=== PATIENT | male | born 1985 | race Caucasian/White ===

== ENCOUNTER 2020-02-17 16:38 | Emergency (ER) | payer MEDICAID, SELFPAY ==
[2020-02-17 16:56] VITALS: BP 147/91; PULSE 93; RESP 14; TEMP 36.1; O2SAT 95; BMI 46.7
--- NOTE | 2020-02-17 17:08 | W.ED.ABDPA2 ---
HPI - Abdominal Pain General: Chief Complaint: Abdominal Pain Stated Complaint: upper abd pain Time Seen by Provider: 02/17/20 17:02 Source: patient Mode of arrival: ambulatory Limitations: no limitations History of Present Illness: HPI narrative: Patient is a 34-year-old male who presents to ED today with complaints of upper abdominal pain, nausea, vomiting, diarrhea beginning this morning when he awoke from sleep. Patient states he tried to rest throughout the day and treat his symptoms with Pepto but states pain progressively worsened throughout the day making him seek evaluation this evening. Patient states he has had one episode of nonbloody vomit and several episodes of nonbloody or dark diarrhea. He does not report any chronic history of acid reflux. No previous abdominal surgeries. States he normally takes pain medications for chronic back pain. He has not been running fevers. No recent antibiotic, NSAID, or heavy alcohol use. Reports no urinary symptoms. MD elicited complaint: abdominal pain Pain Consistency: constant Location: Epigastric Quality: aching and burning Radiation: none Migration to: no migration Relieving factors: nothing Associated Symptoms: Reports diarrhea, nausea and vomiting; Denies chills, coffee ground emesis, dysuria, fever(s), heartburn, hematochezia, hematemesis and melena Review of Systems Const: Denies: fever(s) or chills ENMT: Denies: throat pain, enlarged tonsils or odynophagia Card: Denies: chest pain Resp: Denies: dyspnea GI: Reports: abdominal pain, nausea, vomiting and diarrhea; Denies: hematemesis, coffee ground emesis, heartburn, pain on defecation, hematochezia, melena, mucus in stool, white/light colored stool or steatorrhea : Denies: flank pain, difficulty urinating, dysuria, urinary frequency or urinary urgency Musc: Denies: neck pain or back pain Skin/Breast: Denies: rash Neuro: Denies: headache(s), numbness in extremities, weakness in extremities or sensory changes PFS ED PFSH: Social History Smoking and tobacco status: current every day smoker Physical Exam Const: COMMON NORMALS: no acute distress, patient oriented x3, no limitations and alert NUTRITIONAL APPEARANCE: obese HENMT: COMMON NORMALS: normocephalic and atraumatic HEAD & SCALP: normocephalic and atraumatic Chest: COMMONS NORMALS: normal inspection of the chest and normal palpation of entire chest wall Resp: COMMON NORMALS: normal respiratory effort and clear to auscultation bilaterally AUSCULTATION: clear to auscultation bilaterally Cardio: COMMON NORMALS: regular rate and regular rhythm RATE: regular rate RHYTHM: regular rhythm GI: COMMON NORMALS: Normal to inspection, nondistended, normoactive bowel sounds present, Soft to palpation, No hepatosplenomegaly present and no masses PALPATION: Yes Soft to palpation, Yes Tenderness to palpation present (GI) (epigastric; LUQ) and Yes No hepatosplenomegaly present : COMMON NORMALS: Yes no CVA tenderness BLADDER/KIDNEY EXAM: Yes no CVA tenderness Back/Pelvis: COMMON NORMALS: no CVA tenderness Extremity: COMMON NORMALS: normal to inspection Neuro: COMMON NORMALS: patient oriented x3 SENSORIUM/ORIENTATION: Yes alert Skin: COMMON NORMALS: no rashes or lesions noted GENERAL SKIN EXAM: no rashes or lesions noted Course Vital Signs: Vital signs: Vital Signs Temperature 97.0 F L 02/17/20 16:56 Pulse Rate 93 02/17/20 16:56 Respiratory Rate 14 02/17/20 16:56 Blood Pressure 147/91 02/17/20 16:56 Pulse Oximetry 95 02/17/20 16:56 MDM - Abdominal Pain Lab Data: Labs: Lab Results 02/17/20 02/17/20 02/17/20 Range/Units 17:29 17:29 19:40 WBC 15.4 H (4.0-10.0) 10^3/ uL RBC 6.11 H (4.1-5.3) 10^6/u L Hgb 17.5 H (11.7-16.6) g/dL Hct 52.8 H (42.0-52.0) % MCV 86.4 (80-94) fL MCH 28.6 (28.0-34.0) pg MCHC 33.1 (30.0-36.0) g/dL RDW 12.8 (12.1-15.1) % Plt Count 272 (130-400) 10^3/c mm MPV 10.1 (7.4-10.4) fL Neut % (Auto) 77.0 % Lymph % (Auto) 13.0 % [place] % (Auto) 7.8 % Eos % (Auto) 1.7 % Baso % (Auto) 0.2 % Neut # (Auto) 11.9 H (1.8-7.7) 10^3/u L Lymph # (Auto) 2.0 (0.8-4.8) 10^3/u L [place] # (Auto) 1.2 H (0.2-0.9) 10^3/u L Eos # (Auto) 0.3 (0.0-0.8) 10^3/u L Baso # (Auto) 0.0 (0.0-0.1) 10^3/u L Nucleated RBC % (a uto) 0 % Nucleated RBCs # 0.0 /100WBC Sodium 137 (136-145) mmol/L Potassium 4.4 (3.5-5.1) mmol/L Chloride 98 (98-107) mmol/L Carbon Dioxide 28 (22-29) mmol/L Anion Gap 15.4 (5-19) BUN 9 (6-20) mg/dL Creatinine 0.8 (0.7-1.2) mg/dL GFR Calculation 111.3 (90-130) mL/min Glucose 105 (65-115) mg/dL Calculated Osmolal ity 280 L (285-295) mOsm/k g Calcium 9.0 (8.5-10.5) mg/dL Total Bilirubin 0.4 (0.15-1.2) mg/dL AST 18 (0-40) U/L ALT 30 (0-41) U/L Alkaline Phosphata se 73 (40-130) IU/L Total Protein 7.0 (6.6-8.7) g/dL Albumin 4.4 (3.5-5.2) g/dL Globulin 2.6 (1.3-4.6) g/dL Lipase 13 (13-60) U/L Urine Color Yellow (Yellow) Urine Appearance Clear (CLEAR) Urine pH 5 (5-7) Ur Specific Gravit y 1.010 (1.005-1.030) Urine Protein Neg (Negative) Urine Glucose (UA) Norm (Normal) Urine Ketones Negative (Negative) Urine Blood Neg (Negative) Urine Nitrate Negative (Negative) Urine Bilirubin Neg (NEGATIVE) Urine Urobilinogen Norm (Negative) mg/dL Ur Leukocyte Marilee ase Negative (Negative) Imaging Data ^: CT Abd/Pel: Radiologist's impression: [address] [place] [address] CT Scan Report Signed Patient: Adama Thompson Unit #: [id number] : 1985 Age/Sex: 34 / M ADM Date: 02/17/20 Loc: ER Room/Bed: Attending Dr: Ordering Provider/Ordering MD: Maryjane Santos Date of Service: 02/17/20 Procedure(s): CT abdomen pelvis w con* [id number] Accession Number(s): [id number] Report Number: [id number] PROCEDURE INFORMATION: Exam: CT Abdomen And Pelvis With Contrast Exam date and time: 02/17/2020 6:00 PM Age: 34 years old Clinical indication: Abdominal pain; Patient HX: C/O epigastric pain w n/v/d; Additional info: Upper abdominal pain, n/v/d TECHNIQUE: Imaging protocol: Computed tomography of the abdomen and pelvis with intravenous contrast. Radiation optimization: All CT scans at this facility use at least one of these dose optimization techniques: automated exposure control; mA and/or kV adjustment per patient size (includes targeted exams where dose is matched to clinical indication); or iterative reconstruction. Contrast material: OMNI 300; Contrast volume: 95 ml; Contrast route: 29G; COMPARISON: CT Abdomen/Pelvis Renal [id number] 11/11/2016 10:34 AM RADIATION DOSE METRICS: Total DLP: 2065.53 mGy-cm FINDINGS: Liver: There is a diffuse decrease in hepatic parenchymal density, consistent with mild fatty infiltration. There is no focal abnormality within the liver. Gallbladder and bile ducts: The gallbladder is normal. Pancreas: The pancreas is normal. Spleen: The spleen is normal. Adrenals: The adrenal glands are normal. Kidneys and ureters: There is a 4 mm sized simple cyst in the mid left kidney. There is an 8 mm sized exophytic nodule arising from the lateral aspect of the lower pole of the right kidney not significantly changed from 11/11/2016. This is likely represent a benign hyperdense cyst unchanged in 3 years. There is no evidence of hydronephrosis. There is a tiny nonobstructing stone lower pole calyx of the left kidney. Stomach and bowel: There is mild wall thickening of the distal ileum which may represent some nonspecific enteritis. Correlation with the clinical findings is suggested. There is no evidence of intestinal obstruction. Appendix: A normal appendix is identified. Intraperitoneal space: There is no evidence of free intraperitoneal fluid. Vasculature: Unremarkable. No abdominal aortic aneurysm. Lymph nodes: There is calcified right hilar lymph node in keeping with old granulomatous disease. Bladder: Unremarkable as visualized. Reproductive: Unremarkable as visualized. Bones/joints: Unremarkable. No acute fracture. Soft tissues: Unremarkable. Other findings: . CT/CT abdomen pelvis w con* [id number] IMPRESSION: 1. Mild fatty liver 2. Findings consistent with nonspecific enteritis involving the distal ileum. COMMENTS: Consistent with the [employer]'s Incidental Findings Committee white paper (J Am Natalia Radiol 2018): Any incidental renal lesion less than 1.0 cm or classified as too small to characterize, or any incidental cystic renal lesion characterized as simple-appearing, is likely benign. No follow-up imaging is recommended for these lesions per consensus recommendations based on imaging criteria. Radiation Dose CTDIVOL = (mGy): DLP = 2065.53 (mGy-cm) Dictated By: Mendel Yoon Signed By: Mendel Yoon Signed Date/Time: 02/17/201840 DD/ 40 Discharge Plan Discharge Patient Disposition: Home, Self-Care Clinical Impression: Enteritis Condition: Stable Prescriptions: New Flagyl 500 mg tablet 500 mg PO BID 7 Days Qty: 14 RF: 0 Cipro 500 mg tablet 500 mg PO Q12H Qty: 14 RF: 0 No Action testosterone cypionate 200 mg/mL oil 200 mg IM .EVERY OTHER WEEK Qty: 10 RF: 5 cyclobenzaprine 10 mg tablet 10 mg PO BID PRN (Reason: Muscle Spasm) RF: 0 oxycodone 15 mg tablet 7.5 - 15 mg PO TID PRN (Reason: Pain) RF: 0 Tylenol See Rx Instructions .ROUTE .COMPLEX RF: 0 Discharge Orders: Discharge Order (Routine); Ordered 02/17/20 Ordered By: Maryjane Santos Discharge Diet: Clear Liquid Discharge Activity: Increase activity as tolerated Patient Instructions: [place] Diet - Adult, Gastroenteritis (ED) Activity Restrictions/Additional Instructions: As discussed please do a bland liquid diet over the next 24 to 48 hours advancing as tolerated. You may return to the emergency department or follow-up with primary care for any worsening pain, continued episodes of vomiting and diarrhea, fevers, or any other concerns you may have. 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
--- NOTE | 2020-02-17 17:35 | PC.NURSE ---
Pain is sharp and stabbing, comes and goes. Patient feels nauseous once pain subsides. Pain is in the upper middle of the abdomen.
[2020-02-17 17:40] LABS: Basophils % 0.2 %; Eosinophils # 0.3 10^3/uL (0.0-0.8); Eosinophils % 1.7 %; Hematocrit 52.8 % (42.0-52.0); Hemoglobin 17.5 g/dL (11.7-16.6); Mean Corpuscular HGB Conc 33.1 g/dL (30.0-36.0); Mean Corpuscular Hemoglobin 28.6 pg (28.0-34.0); Mean Corpuscular Volume 86.4 fL (80-94); Mean Platelet Volume 10.1 fL (7.4-10.4); Monocytes # 1.2 10^3/uL (0.2-0.9); Monocytes % 7.8 %; Neutrophils # 11.9 10^3/uL (1.8-7.7); Nucleated Red Blood Cells % 0 %; Platelet Count 272 10^3/cmm (130-400); Red Blood Count 6.11 10^6/uL (4.1-5.3); Red Cell Distribution Width 12.8 % (12.1-15.1); White Blood Count 15.4 10^3/uL (4.0-10.0)
[2020-02-17 17:55] LABS: Alanine Aminotransferase 30 U/L (0-41); Albumin Level 4.4 g/dL (3.5-5.2); Alkaline Phosphatase 73 IU/L (40-130); Anion Gap 15.4 (5-19); Aspartate Amino Transferase 18 U/L (0-40); Blood Urea Nitrogen 9 mg/dL (6-20); Carbon Dioxide 28 mmol/L (22-29); Chloride 98 mmol/L (98-107); Globulin 2.6 g/dL (1.3-4.6); Glomerular Filtration Rate 111.3 mL/min (90-130); Glucose 105 mg/dL (65-115); Lipase 13 U/L (13-60); Osmolality Calculated 280 mOsm/kg (285-295); Potassium 4.4 mmol/L (3.5-5.1); Sodium 137 mmol/L (136-145); Total Bilirubin 0.4 mg/dL (0.15-1.2)
[2020-02-17] MEDS: ondansetron 2 mg/ML SDV 2 mL 4 MG IVP (18:06)
[2020-02-17] MEDS: iohexol 300 mg/mL 100 mL Btl IV (18:15)
[2020-02-17] MEDS: lidocaine 2% viscous 15 ML, aluminum-mag hydrox-simethicon 30 ML, sucralfate oral liq 1 GM PO (19:39)
[2020-02-17 19:46] LABS: Add Urine Microscopic? NO
[2020-02-17 19:48] LABS: Bilirubin Urine Neg (NEGATIVE); Blood Urine Neg (Negative); Glucose Urine UA Norm (Normal); Ketones Urine Negative (Negative); Leukocyte Esterase Urine Negative (Negative); Nitrate Urine Negative (Negative); Protein Urine Neg (Negative); Urine Appearance Clear (CLEAR); Urine Color Yellow (Yellow); Urobilinogen Urine Norm (Negative); pH Urine 5 (5-7)
== END 2020-02-17 20:01 | disposition home or self-care (01) ==
PROVIDERS: Emergency Provider Physician Assistant
DX: K52.9 Noninfective gastroenteritis and colitis, unspecified (principal); F17.210 Nicotine dependence, cigarettes, uncomplicated
CPT/HCPCS: 12345; 36415; 74177; 80053; 81003; 83690; 85025; 96374; 96375; 99282; 99283; J2405; Q9967

== ENCOUNTER → 2020-05-14 13:32 | Outpatient (BNVA) | payer MEDICAID, SELFPAY | PROVIDERS: PCP Internal Medicine; Visit Provider Urology | DX: E29.1 Testicular hypofunction (principal); R79.89 Other specified abnormal findings of blood chemistry; Z87.442 Personal history of urinary calculi | CPT/HCPCS: 81001 ==

== ENCOUNTER 2020-12-23 17:03 | Emergency (ER) | payer MEDICAID, SELFPAY ==
[2020-12-23 17:37] VITALS: BP 168/104; PULSE 87; RESP 14; TEMP 36.8; O2SAT 96; BMI 42.5
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
--- NOTE | 2020-12-23 17:51 | XRR_ITS ---
PROCEDURE INFORMATION: Exam: XR Left Shoulder Exam date and time: 12/23/2020 6:24 PM Age: 35 years old Clinical indication: Pain and injury or trauma; Other: Not specified; Sprain or strain; Shoulder; Left; Patient HX: Pain x 2 weeks; Additional info: Injury with pain TECHNIQUE: Imaging protocol: XR Left shoulder. Views: 2 or more views. COMPARISON: No relevant prior studies available. FINDINGS: Bones/joints: Normal. Soft tissues: Normal. XR/XR shoulder LT min 2V* [id number] IMPRESSION: No acute findings.
[2020-12-23] MEDS: orphenadrine 30 mg/mL Inj 2 mL 60 MG IM (18:03)
[2020-12-23] MEDS: HYDROcodone-acetaminophen 7.5-325 mg Tablet 1 TAB PO (18:03)
[2020-12-23 19:01] VITALS: RESP 16
== END 2020-12-23 19:02 | disposition home or self-care (01) ==
PROVIDERS: Emergency Provider Physician Assistant; PCP Internal Medicine
DX: M25.512 Pain in left shoulder (principal); F17.210 Nicotine dependence, cigarettes, uncomplicated
CPT/HCPCS: 73030; 96372; 99283; J2360

== ENCOUNTER → 2021-09-24 07:20 | Outpatient (BNVA) | payer MEDICAID, SELFPAY | PROVIDERS: PCP Internal Medicine; Visit Provider Urology | DX: N52.9 Male erectile dysfunction, unspecified (principal) | CPT/HCPCS: 84403 ==

== ENCOUNTER 2021-10-23 01:16 | Inpatient (IN) | payer MEDICAID, SELFPAY ==
[2021-10-23] VITALS (9 sets, daily range): BP systolic 124–141; BP diastolic 71–118; PULSE 64–92; RESP 16–22; TEMP 36.6–36.9; O2SAT 88–96; BMI 43.4; BMI 33.9
--- NOTE | 2021-10-23 01:21 | ECG_ITS ---
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 [email or web address]
--- NOTE | 2021-10-23 01:28 | ED_ITS ---
HPI - Overdose General: Chief Complaint: Overdose Stated Complaint: OD Trazadone 100MG\Prozac\Hydocodone Time Seen by Provider: 10/23/21 01:18 Source: patient Mode of arrival: ambulatory Limitations: no limitations History of Present Illness: HPI Narrative: 36-year-old male states that he is arguing with his harriet became very upset and took multiple pills in an attempt to kill himself. States he took 7 100 mg trazodone pills states he also took a bottle of Prozac he states he believes it was more than 3010 mg tablets. He states he took also 1 hydrocodone earlier in the day did not take any large amount of hydrocodone. He states he was just very upset and want to kill himself after the argument denies any worsening improving factors. Review of Systems Const: Denies: fever(s), chills, body aches or change in appetite Eyes: Denies: blurry vision or eye discomfort ENMT: Denies: throat pain or dental pain Card: Denies: chest pain Resp: Denies: dyspnea GI: Denies: abdominal pain, nausea, vomiting or diarrhea : Denies: dysuria Musc: Denies: neck pain or back pain Skin/Breast: Denies: rash Neuro: Denies: headache(s) Psych: Reports: depression and suicidal ideation [place]/Lymph: Denies: easy bruising All/Imm: Denies: urticaria PFSH ED PFSH: Medical History Erectile dysfunction History of kidney stones Low testosterone in male Lower urinary tract symptoms Surgical History History of tonsillectomy and adenoidectomy Family History Father , at age 68 Alcoholic Mother Cancer BREAST CANCER Sister Cancer Other CAD (coronary artery disease) Diabetes Hypertension Social History Alcohol intake: unknown Adopted: No Caregiver/support person: No Marital status: Current occupational status: unemployed History of recent travel: No Physical Exam Const: COMMON NORMALS: patient oriented x3 and healthy appearing GENERAL APPEARANCE: lethargic ORIENTATION/CONSCIOUSNESS: Yes lethargic HENMT: COMMON NORMALS: normocephalic and atraumatic HEAD & SCALP: normocephalic and atraumatic Eye: COMMON NORMALS: Equal, round and reactive pupils present and EOMs intact bilaterally PUPIL: Yes Equal, round and reactive pupils present Neck/C-Spine: COMMON NORMALS: full ROM and supple Chest: COMMONS NORMALS: normal inspection of the chest and normal palpation of entire chest wall Resp: COMMON NORMALS: normal respiratory effort, No retractions, No use of accessory muscles and clear to auscultation bilaterally AUSCULTATION: clear to auscultation bilaterally Cardio: COMMON NORMALS: regular rate, regular rhythm and No murmurs present (Cardio) RATE: regular rate RHYTHM: regular rhythm GI: COMMON NORMALS: Normal to inspection, nondistended, normoactive bowel sounds present, Soft to palpation, non-tender and no masses PALPATION: Yes Soft to palpation Extremity: COMMON NORMALS: normal to inspection and full ROM Neuro: COMMON NORMALS: patient oriented x3, moves all extremities and no focal motor deficits SENSORIUM/ORIENTATION: Yes lethargic Psych: COMMON NORMALS: mental status grossly normal and cooperative THOUGHT CONTENT: Yes Suicidality present Skin: COMMON NORMALS: no rashes or lesions noted and no wounds GENERAL SKIN EXAM: no rashes or lesions noted Course Vital Signs: Vital signs: Vital Signs Temperature 98.2 F 10/23/21 03:12 Pulse Rate 80 10/23/21 03:12 Respiratory Rate 16 10/23/21 03:12 Blood Pressure 135/79 10/23/21 03:12 Pulse Oximetry 90 10/23/21 03:12 MDM - Overdose MDM Narrative: Medical decision making narrative: Patient presents here after a suicide attempt by overdose he has been well-appearing here no signs of toxic ingestion patient's been observed here and is medically cleared for admission to the psychiatric unit. His vitals here been normal 4-hour Tylenol is normal I spoke to psychiatrist will admit to the psychiatric unit. Lab Data: Labs: Lab Results 10/23/21 10/23/21 10/23/21 01:36 01:36 02:12 WBC 9.1 10^3/uL 10^3/ uL (4.0-10.0) RBC 5.54 10^6/uL H 10 ^6/uL (4.1-5.3) Hgb 15.8 g/dL g/dL (11.7-16.6) Hct 47.7 % % (42.0-52.0) MCV 86.1 fl fl (80-94) MCH 28.5 pg pg (28.0-34.0) MCHC 33.1 g/dL g/dL (30.0-36.0) RDW 12.6 % % (12.1-15.1) Plt Count 295 10^3/cmm 10^3 /cmm (130-400) MPV 9.9 fL fL (7.4-10.4) Neut % (Auto) 60.1 % % Lymph % (Auto) 31.2 % % [place] % (Auto) 7.0 % % Eos % (Auto) 1.1 % % Baso % (Auto) 0.5 % % Neut # (Auto) 5.47 10^3/uL 10^3 /uL (1.8-7.7) Lymph # (Auto) 2.8 10^3/uL 10^3/ uL (0.8-4.8) [place] # (Auto) 0.6 10^3/uL 10^3/ uL (0.2-0.9) Eos # (Auto) 0.1 10^3/uL 10^3/ uL (0.0-0.8) Baso # (Auto) 0.1 10^3/uL 10^3/ uL (0.0-0.1) Nucleated RBC % (a uto) 0 % % Nucleated RBCs # 0.0 /100WBC /100W BC Sodium 140 mmol/L mmol/L (136-145) Potassium 4.0 mmol/L mmol/L (3.5-5.1) Chloride 103 mmol/L mmol/L (98-107) Carbon Dioxide 24 mmol/L mmol/L (22-29) Anion Gap 17.0 (5-19) BUN 11 mg/dL mg/dL (6-20) Creatinine 0.8 mg/dL mg/dL (0.7-1.2) GFR Calculation 110.0 mL/min mL/m in (90-130) Glucose 102 mg/dL mg/dL (65-115) Calculated Osmolal ity 290 mOsm/kg mOsm/ kg (285-295) Calcium 8.9 mg/dL mg/dL (8.5-10.5) Magnesium 2.2 mg/dL mg/dL (1.7-2.3) Total Bilirubin 0.4 mg/dL mg/dL (0.15-1.2) AST 16 U/L U/L (0-40) ALT 23 U/L U/L (0-41) Alkaline Phosphata se 79 IU/L IU/L (40-130) Total Protein 6.8 g/dL g/dL (6.6-8.7) Albumin 4.4 g/dL g/dL (3.5-5.2) Globulin 2.4 g/dL g/dL (1.3-4.6) Salicylates < 0.3 mg/dL L mg/ dL (3-10) Urine Opiates Scre en Positive ng/mL H ng/mL (Negative) Acetaminophen < 5.0 ug/mL L ug/ mL (10-30) Ur Barbiturates Sc reen Negative ng/mL ng /mL (Negative) Ur Phencyclidine S crn Negative ng/mL ng /mL (Negative) Ur Amphetamines Sc reen Positive ng/mL H ng/mL (Negative) U Benzodiazepines Scrn Negative ng/mL ng /mL (Negative) Urine Cocaine Scre en Negative ng/mL ng /mL (Negative) U Marijuana (THC) Screen Negative ng/mL ng /mL (Negative) Ethyl Alcohol < 10 mg/dL mg/dL (0-10) 10/23/21 03:42 WBC RBC Hgb Hct MCV MCH MCHC RDW Plt Count MPV Neut % (Auto) Lymph % (Auto) [place] % (Auto) Eos % (Auto) Baso % (Auto) Neut # (Auto) Lymph # (Auto) [place] # (Auto) Eos # (Auto) Baso # (Auto) Nucleated RBC % (a uto) Nucleated RBCs # Sodium Potassium Chloride Carbon Dioxide Anion Gap BUN Creatinine GFR Calculation Glucose Calculated Osmolal ity Calcium Magnesium Total Bilirubin AST ALT Alkaline Phosphata se Total Protein Albumin Globulin Salicylates Urine Opiates Scre en Acetaminophen < 5.0 ug/mL L ug/ mL (10-30) Ur Barbiturates Sc reen Ur Phencyclidine S crn Ur Amphetamines Sc reen U Benzodiazepines Scrn Urine Cocaine Scre en U Marijuana (THC) Screen Ethyl Alcohol EKG Data^: EKG 1: Attestation: I personally reviewed and interpreted this EKG as follows: EKG interpretation date: 10/23/21 EKG interpretation time: 01:52 Interpretation: nsr hr [address] or t wave abnormalities qrs 99 qtc 409 Critical Care Time Critical Care Time: Critical Care Time: Yes Total Critical Care Time: 40 Attestation: The high probability of a clinically significant, sudden or life threatening deterioration of the patient's [CV] system(s) required my full and direct attention, intervention and personal management. The critical care time is as shown. This time is in addition to time spent performing any reported procedures but includes the following: [x] Data and vital sign review and interpretation [x] Patient assessment, examination and intervention [x] Documentation [x] Medication orders and management Discharge Plan Discharge Patient Disposition: Admitted As Inpatient Clinical Impression: Suicidal ideation Drug overdose Qualifiers: Encounter type: initial encounter Injury intent: intentional self-harm Qualified Code(s): T50.902A - Poisoning by unspecified drugs, medicaments and biological substances, intentional self-harm, initial encounter Condition: Stable Coding Level of Care Code 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
[2021-10-23 01:41] LABS: Basophils # 0.1 10^3/uL (0.0-0.1); Basophils % 0.5 %; Eosinophils # 0.1 10^3/uL (0.0-0.8); Eosinophils % 1.1 %; Hematocrit 47.7 % (42.0-52.0); Hemoglobin 15.8 g/dL (11.7-16.6); Lymphocytes # 2.8 10^3/uL (0.8-4.8); Lymphocytes % 31.2 %; Mean Corpuscular HGB Conc 33.1 g/dL (30.0-36.0); Mean Corpuscular Hemoglobin 28.5 pg (28.0-34.0); Mean Corpuscular Volume 86.1 fl (80-94); Mean Platelet Volume 9.9 fL (7.4-10.4); Monocytes # 0.6 10^3/uL (0.2-0.9); Neutrophils # 5.47 10^3/uL (1.8-7.7); Neutrophils % 60.1 %; Nucleated Red Blood Cells % 0 %; Platelet Count 295 10^3/cmm (130-400); Red Blood Count 5.54 10^6/uL (4.1-5.3); Red Cell Distribution Width 12.6 % (12.1-15.1); White Blood Count 9.1 10^3/uL (4.0-10.0)
[2021-10-23 02:02] LABS: Alanine Aminotransferase 23 U/L (0-41); Albumin Level 4.4 g/dL (3.5-5.2); Alkaline Phosphatase 79 IU/L (40-130); Blood Urea Nitrogen 11 mg/dL (6-20); Calcium 8.9 mg/dL (8.5-10.5); Carbon Dioxide 24 mmol/L (22-29); Chloride 103 mmol/L (98-107); Globulin 2.4 g/dL (1.3-4.6); Glucose 102 mg/dL (65-115); Magnesium 2.2 mg/dL (1.7-2.3); Osmolality Calculated 290 mOsm/kg (285-295); Sodium 140 mmol/L (136-145); Total Bilirubin 0.4 mg/dL (0.15-1.2); Total Protein 6.8 g/dL (6.6-8.7)
[2021-10-23 02:10] LABS: Acetaminophen < 5.0 ug/mL (10-30); Alcohol Level < 10 mg/dL (0-10); Aspartate Amino Transferase 16 U/L (0-40); Salicylate < 0.3 mg/dL (3-10)
[2021-10-23 02:28] LABS: Amphetamines Screen Urine Positive (Negative); Barbiturates Screen Urine Negative (Negative); Benzodiazepines Screen Urine Negative (Negative); Cocaine Screen Urine Negative (Negative); Opiate Screen Urine Positive (Negative); PCP Screen Urine Negative (Negative); THC Screen Urine Negative (Negative)
[2021-10-23 04:21] LABS: Acetaminophen < 5.0 ug/mL (10-30)
--- NOTE | 2021-10-23 12:52 | P.NPUHP_ITS ---
Providers/Chief Complaint Admitting Physician: Amor Juan MD Primary Care Provider: Ann-Marie Steven MD Chief Complaint: OD Trazadone 100MG\Prozac\Hydocodone HPI NPU History of Present Illness Adama Thompson is a 36 year old male who was admitted to the emergency department with the following report: General: Chief Complaint: Overdose Stated Complaint: OD Trazadone 100MG\Prozac\Hydocodone Time Seen by Provider: 10/23/21 01:18 Source: patient Mode of arrival: ambulatory Limitations: no limitations History of Present Illness: HPI Narrative: 36-year-old male states that he is arguing with his harriet became very upset and took multiple pills in an attempt to kill himself. States he took 7 100 mg trazodone pills states he also took a bottle of Prozac he states he believes it was more than 30 10 mg tablets. He states he took also 1 hydrocodone earlier in the day did not take any large amount of hydrocodone. He states he was just very upset and want to kill himself after the argument denies any worsening improving factors. He was admitted to the neuropsychiatry unit for definitive treatment of these issues. He was a little difficult to interview this morning because he is still sedated from the trazodone that he took. He says that he has been depressed recently. He has been out of work for about 6 years. He is not on disability. He sits at home and does little or nothing. He says he probably goes back and forth between the bed and the chair. He does medical marijuana as much as he can afford to get. He does methamphetamine about twice a week just to get himself moving so that he can do some of the things that he should be doing. He says he cleans the house when he uses methamphetamine. His complains about his methamphetamine use because sometimes he is irritable. He denies that it causes him to have hallucinations or paranoia. That he only drinks a few times per year. He says that he sleeps well. He sometimes has some decreased appetite but has not lost any weight. His weight is stable. He does have low self-esteem, low motivation and energy. He does not remember if the Prozac and trazodone that he took previously helped. He said it has been many years since he took them. He has recently started smoking cigarettes and using drugs when he was about 13 years old. He denies using oxygen at home that his oxygen level in the emergency room was in the upper 80s on room air at times. It was not the 90s on room air after they gave him some oxygen. Meds NPU Home Medications Medication Instructions Recorded Confirmed Last Taken Type testosterone cypionate 200 mg/mL 200 mg IM .EVERY OTHER WEEK #10 ml 10/10/21 10/23/21 Unknown Rx intramuscular oil Allergies Allergy/AdvReac Type Severity Reaction Status Date / Time naproxen Allergy ALGY-Difficulty Verified 09/24/21 07:18 Breathing NSAIDS (Non-Steroidal Allergy ALGY-Anaphy Verified 09/24/21 07:18 Anti-Inflamma laxis zonisamide [From Zonegran] AdvReac ADR-Vomitin Verified 09/24/21 07:18 g PFSH NPU PFSH: Medical History Erectile dysfunction History of kidney stones Low testosterone in male Lower urinary tract symptoms Surgical History History of tonsillectomy and adenoidectomy Family History Father , at age 68 Alcoholic Mother Cancer BREAST CANCER Sister Cancer Other CAD (coronary artery disease) Diabetes Hypertension Social History Alcohol intake: unknown Adopted: No Caregiver/support person: No Marital status: Current occupational status: unemployed History of recent travel: No Mental Status Exam MSE Comments: This is an obese 36-year old male who appears approximately his stated age in no acute distress. He is dressed in hospital scrubs. He is in bed and is somewhat difficult to arouse. psychomotor activity decreased. Speech is at a regular rate and rhythm, normal volume, good articulation, not pressured. Alert, oriented X2 Attention and concentration are diminished. He is overly sedated. Memory is intact Mood is depressed. Affect is dysphoric. Thought process is logical and goal-directed. Thought content: Denies auditory and visual hallucinations. No delusions or paranoia are noted. No current suicidal ideation, and no homicidal ideation. Fund of knowledge is probably average. Insight and judgment appear to be poor. Impulse control is poor. Vitals/I&O/Wt Last Vital Signs Temp 98.2 F 10/23/21 03:12 Pulse 72 10/23/21 07:59 Resp 16 10/23/21 07:59 BP 131/72 10/23/21 07:59 Pulse Ox 94 10/23/21 07:59 Weight last 48 hrs Weight 113.398 kg Weight 145.15 kg Data NPU : 10/23/21 01:36 10/23/21 01:36 A&P Assessment and plan (1) Depression: Status: Acute Qualifiers: Depression Type: major depressive disorder Major depression recurrence: recurrent Active/Remission status: currently active Major depression episode severity: severe Psychotic features: without psychotic features Qualified Code(s): F33.2 - Major depressive disorder, recurrent severe without psychotic features (2) Marijuana dependence: Status: Acute (3) Methamphetamine abuse: Status: Acute Additional A&P Information This is a 36-year-old male who comes in after taking an overdose of pills to try and kill himself. Plan: 1. We will start him on Lexapro 10 mg daily and attempt to establish him in outpatient treatment 2. Continue every 15 minute checks for safety. 3. Encourage individual, group and milieu therapies. 4. Encourage sober living treatment after discharge at the highest level of care to which he is willing to commit. 5. We will monitor for safety for himself in the community prior to discharge. Attestations NPU Medical Necessity Statement*: Inpatient hospitalization is medically necessary and the clinically appropriate intervention at this time. We will initiate medications and make changes as indicated. He will be in the hospital for over 2 midnights. 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
[2021-10-23 13:57] LABS: Testosterone Total 507.7 ng/dL (249-836); Thyroid Stimulating Hormone 0.69 uIU/mL (0.27-4.20)
[2021-10-23] MEDS: hyDROXYzine 25 mg Capsule 50 MG PO (20:34)
[2021-10-23] MEDS: trazodone 50 mg Tablet PO (20:34)
--- NOTE | 2021-10-24 00:02 | PC.NURSE ---
Patient received Trazadone and Vistaril for insomnia and anxiety. Meds were effective.
[2021-10-24 06:00] VITALS: BP 131/71; PULSE 70; RESP 17; TEMP 36.9; O2SAT 96
[2021-10-24 06:46] VITALS: BP 135/85; PULSE 67; RESP 20; TEMP 36.7; O2SAT 95
--- NOTE | 2021-10-24 10:51 | P.NPUPN_ITS ---
Subjective NPU Subjective: Interval history: He says that he was when he talked with me yesterday. He says that he is not sleeping all the time maramandawilma told me that he was yesterday. He says that he is usually up and around and taking care of the house and the kids. He is still sedated today because she took the as needed trazodone and Vistaril last night. He requested the dose be discontinued so that he cannot take them again. He says he has been depressed the last few months with low energy and low motivation. He requested to start an antidepressant. He does not remember what he took previously. He overdosed with some old Prozac 10 mg that he had. He said that that was not strong enough. He said that he would prefer to try something else and we decided to try Lexapro. Mental Status Exam MSE Comments: This is an obese 36-year old male who appears approximately his stated age in no acute distress. He is dressed in hospital scrubs. He is in bed but easily aroused. psychomotor activity decreased. Speech is at a regular rate and rhythm, normal volume, good articulation, not pressured. Alert, oriented X3 Attention and concentration are diminished. He is overly sedated. Memory is intact Mood is depressed. Affect is dysphoric. Thought process is logical and goal-directed. Thought content: Denies auditory and visual hallucinations. No delusions or paranoia are noted. No current suicidal ideation, and no homicidal ideation. Fund of knowledge is probably average. Insight and judgment appear to be poor. Impulse control is poor. Cognition: Patient Appearance: Appropriate Level of Consciousness: Lethargic Patient Cognition Impaired: No Ability to Follow Directions: Good Patient Orientation (long list): Person, Place, Time, Name, Age and Birthday Comprehension Ability: Understands Concepts Hallucination Type: None Delusion Description: Not Present Thought Process: Appropriate Affect: Affect Description: Appropriate and Calm Behavior: Patient Behavior: Appropriate and Cooperative Speech Pattern: Appropriate and Clear Vitals/I&O/Wt Last Vital Signs Temp 98.1 F 10/24/21 06:46 Pulse 67 10/24/21 06:46 Resp 20 H 10/24/21 06:46 BP 135/85 10/24/21 06:46 Pulse Ox 95 10/24/21 06:46 Weight last 48 hrs Weight 113.398 kg Weight 145.15 kg Data NPU : 10/23/21 01:36 10/23/21 01:36 A&P Assessment and plan (1) Depression: Status: Acute Qualifiers: Depression Type: major depressive disorder Major depression recurrence: recurrent Active/Remission status: currently active Major depression episode severity: severe Psychotic features: without psychotic features Qualified Code(s): F33.2 - Major depressive disorder, recurrent severe without psychotic features (2) Marijuana dependence: Status: Acute (3) Methamphetamine abuse: Status: Acute Additional A&P Information This is a 36-year-old male who comes in after taking an overdose of pills to try and kill himself. Plan: 1. We will start him on Lexapro 10 mg daily and attempt to establish him in outpatient treatment 2. Continue every 15 minute checks for safety. 3. Encourage individual, group and milieu therapies. 4. Encourage sober living treatment after discharge at the highest level of care to which he is willing to commit. 5. We will monitor for safety for himself in the community prior to discharge. Involuntary Hold Information 96 Hour Hold: 96 Hour Involuntary Admission: Yes 96 Hour Hold Ending Date: 10/29/21 96 Hour Hold Ending Time: 01:52 Attestations NPU Medical Necessity Statement*: Inpatient hospitalization is medically necessary and the clinically appropriate intervention at this time. We will initiate medications and make changes as indicated. 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
[2021-10-24] MEDS: escitalopram 10 mg Tablet PO (11:54)
[2021-10-24] MEDS: nicotine 2 mg Gum BUCCAL ×2 (12:24→16:55)
[2021-10-24 14:00] VITALS: BP 140/84; PULSE 77; RESP 19; TEMP 36.7; O2SAT 97
[2021-10-24 20:31] VITALS: BP 124/69; PULSE 60; RESP 16; O2SAT 96
[2021-10-25 06:00] VITALS: BP 154/85; PULSE 69; RESP 18; TEMP 36.1; O2SAT 96
[2021-10-25] MEDS: nicotine 2 mg Gum BUCCAL (08:32)
[2021-10-25] MEDS: escitalopram 10 mg Tablet PO (08:32)
--- NOTE | 2021-10-25 10:37 | P.NPUPN_ITS ---
Subjective NPU Subjective: Interval history: He says that he was in bed most of the day yesterday. He said that he was drowsy from the sleep medications he had been given before. He says that he does feel that the medication is working and he is in a better mood. This is a good medication for discontinued and he says that he feels better today. He has been up today. He feels like he will p robably be ready to go home tomorrow. Mental Status Exam MSE Comments: This is an obese 36-year old male who appears approximately his stated age in no acute distress. He is dressed in hospital scrubs. He is in bed but easily aroused. psychomotor activity decreased. Speech is at a regular rate and rhythm, normal volume, good articulation, not pressured. Alert, oriented X3 Attention and concentration are diminished. He is overly sedated. Memory is intact Mood is depressed but better. Affect is mildly dysphoric. Thought process is logical and goal-directed. Thought content: Denies auditory and visual hallucinations. No delusions or paranoia are noted. No current suicidal ideation, and no homicidal ideation. Fund of knowledge is probably average. Insight and judgment appear to be poor. Impulse control is poor. Cognition: Patient Appearance: Appropriate Level of Consciousness: Lethargic Patient Cognition Impaired: No Ability to Follow Directions: Good Patient Orientation (long list): Person, Place, Time, Name, Age and Birthday Comprehension Ability: Understands Concepts Hallucination Type: None Delusion Description: Not Present Thought Process: Appropriate Affect: Affect Description: Calm Behavior: Patient Behavior: Cooperative Speech Pattern: Clear Vitals/I&O/Wt Last Vital Signs Temp 97 F L 10/25/21 06:00 Pulse 69 10/25/21 06:00 Resp 18 10/25/21 06:00 BP 154/85 10/25/21 06:00 Pulse Ox 96 10/25/21 06:00 Data NPU : 10/23/21 01:36 10/23/21 01:36 A&P Assessment and plan (1) Depression: Status: Acute Qualifiers: Depression Type: major depressive disorder Major depression recurrence: recurrent Active/Remission status: currently active Major depression episode severity: severe Psychotic features: without psychotic features Qualified Code(s): F33.2 - Major depressive disorder, recurrent severe without psychotic features (2) Marijuana dependence: Status: Acute (3) Methamphetamine abuse: Status: Acute Additional A&P Information This is a 36-year-old male who comes in after taking an overdose of pills to try and kill himself. Plan: 1. We will start him on Lexapro 10 mg daily and attempt to establish him in outpatient treatment 2. Continue every 15 minute checks for safety. 3. Encourage individual, group and milieu therapies. 4. Encourage sober living treatment after discharge at the highest level of care to which he is willing to commit. 5. We will monitor for safety for himself in the community prior to discharge. Involuntary Hold Information 96 Hour Hold: 96 Hour Involuntary Admission: Yes 96 Hour Hold Ending Date: 10/29/21 96 Hour Hold Ending Time: 01:52 Attestations NPU Medical Necessity Statement*: Inpatient hospitalization is medically necessary and the clinically appropriate intervention at this time. We will initiate medications and make changes as indicated. 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
[2021-10-25 14:00] VITALS: BP 144/84; PULSE 78; RESP 17; O2SAT 94
[2021-10-25 20:16] VITALS: BP 159/92; PULSE 61; RESP 17; O2SAT 94
[2021-10-26 05:50] VITALS: BP 159/92; PULSE 61; RESP 17; TEMP 36.1; O2SAT 94; BMI 33.9
[2021-10-26 06:56] VITALS: BP 165/91; PULSE 69; RESP 19; TEMP 36.6; O2SAT 96
--- NOTE | 2021-10-26 07:25 | W.PM.NPUDCS ---
Diagnoses at Discharge Discharge Diagnosis (1) Depression: Status: Acute Qualifiers: Active/Remission status: currently active Depression Type: major depressive disorder Major depression episode severity: severe Major depression recurrence: recurrent Psychotic features: without psychotic features Qualified Code(s): F33.2 - Major depressive disorder, recurrent severe without psychotic features (2) Marijuana dependence: Status: Acute (3) Methamphetamine abuse: Status: Acute Reason for Visit Reason for Visit: OD Trazadone 100MG\Prozac\Hydocodone Brief History: History of Present Illness Adama Thompson is a 36 year old male who was admitted to the emergency department with the following report: General: Chief Complaint: Overdose Stated Complaint: OD Trazadone 100MG\Prozac\Hydocodone Time Seen by Provider: 10/23/21 01:18 Source: patient Mode of arrival: ambulatory Limitations: no limitations History of Present Illness: HPI Narrative: 36-year-old male states that he is arguing with his tonight became very upset and took multiple pills in an attempt to kill himself. States he took 7 100 mg trazodone pills states he also took a bottle of Prozac he states he believes it was more than 30 10 mg tablets. He states he took also 1 hydrocodone earlier in the day did not take any large amount of hydrocodone. He states he was just very upset and want to kill himself after the argument denies any worsening improving factors. He was admitted to the neuropsychiatry unit for definitive treatment of these issues. He was a little difficult to interview this morning because he is still sedated from the trazodone that he took. He says that he has been depressed recently. He has been out of work for about 6 years. He is not on disability. He sits at home and does little or nothing. He says he probably goes back and forth between the bed and the chair. He does medical marijuana as much as he can afford to get. He does methamphetamine about twice a week just to get himself moving so that he can do some of the things that he should be doing. He says he cleans the house when he uses methamphetamine. His complains about his methamphetamine use because sometimes he is irritable. He denies that it causes him to have hallucinations or paranoia. That he only drinks a few times per year. He says that he sleeps well. He sometimes has some decreased appetite but has not lost any weight. His weight is stable. He does have low self-esteem, low motivation and energy. He does not remember if the Prozac and trazodone that he took previously helped. He said it has been many years since he took them. He has recently started smoking cigarettes and using drugs when he was about 13 years old. He denies using oxygen at home that his oxygen level in the emergency room was in the upper 80s on room air at times. It was not the 90s on room air after they gave him some oxygen. Hospital Course Hospital Course He slowly acclimated to the individual, group and milieu therapies provided. He was started on Lexapro 10 mg daily. He was in bed all day the first day but then was up and around more. He said that he exaggerated how much he was in bed when he first talked with me. He tolerated these doses and showed steady improvement during his stay. He was able to contract for safety outside hospital prior to discharge. During the hospitalization, patient had routine laboratory studies which were within normal limits except for few outliers. Additionally there was a general medical evaluation which was also within normal limits and revealed no new acute processes. Discharge Summary: At the time of discharge, lethality was denied and psychosis was resolving. Mood and anxiety were well managed. Patient endorsed a plan to follow-up with the aftercare recommendations of the treatment team. Patient was evaluated and deemed to be absent credible lethality, and had achieved the maximum benefit from an inpatient hospitalization, so was discharged. Involuntary Hold Information 96 Hour Hold: 96 Hour Involuntary Admission: Yes 96 Hour Hold Ending Date: 10/29/21 96 Hour Hold Ending Time: 01:52 Mental Status Exam MSE Comments: This is an obese 36-year old male who appears approximately his stated age in no acute distress. He is dressed in hospital scrubs. He is in bed but easily aroused. psychomotor activity decreased. Speech is at a regular rate and rhythm, normal volume, good articulation, not pressured. Alert, oriented X3 Attention and concentration are diminished. He is overly sedated. Memory is intact Mood is depressed but better. Affect is mildly dysphoric. Thought process is logical and goal-directed. Thought content: Denies auditory and visual hallucinations. No delusions or paranoia are noted. No current suicidal ideation, and no homicidal ideation. Fund of knowledge is probably average. Insight and judgment appear to be poor. Impulse control is poor. Cognition: Patient Appearance: Appropriate Level of Consciousness: Lethargic Patient Cognition Impaired: No Ability to Follow Directions: Good Patient Orientation (long list): Person, Place, Time, Name, Age and Birthday Comprehension Ability: Understands Concepts Hallucination Type: None Delusion Description: Not Present Thought Process: Appropriate Affect: Affect Description: Appropriate and Calm Behavior: Patient Behavior: Appropriate and Cooperative Speech Pattern: Appropriate and Clear Discharge Data Vitals: Last Vital Signs Temp 97.8 F 10/26/21 06:56 Pulse 69 10/26/21 06:56 Resp 19 H 10/26/21 06:56 BP 165/91 10/26/21 06:56 Pulse Ox 96 10/26/21 06:56 Discharge Plan Discharge Patient Disposition: Home Condition: Stable Prescriptions: New escitalopram oxalate 10 mg Tablet 10 mg PO DAILY 30 Days Qty: 30 RF: 0 Continued testosterone cypionate 200 mg/mL oil 200 mg IM .EVERY OTHER WEEK Qty: 10 RF: 5 Referrals: [facility] [Outside] - 4-7 days (Walk in for initial assessment Tuesdays or 7:30am to 3pm.) Ann-Marie Steven MD [Primary Care Provider] - Discharge Diet: Advance as tolerated and Regular Discharge Activity: Resume usual activity Patient Instructions: Opioid Safety Discharge Attestations NPU Time Spent in Discharge Care*: less than 30 min Specific Discharge Activities: Specific discharge activities: educating patient, discussing with showcase trimmer/social workers/dc planners, documenting/other paperwork and evaluating patient/reviewing data Coding Level of Care Code Acute Chg DC note Diagnoses Depression F33.2 Active/Remission status: currently active Depression Type: major depressive disorder Major depression episode severity: severe Major depression recurrence: recurrent Psychotic features: without psychotic features Marijuana dependence F12.20 Methamphetamine abuse F15.10
[2021-10-26] MEDS: escitalopram 10 mg Tablet PO (08:16)
[2021-10-26 09:28] VITALS: BP 165/91; PULSE 69; RESP 19; TEMP 36.6; O2SAT 96
--- NOTE | 2021-10-27 08:38 | PC.OT ---
OT EVALUATION ORDERS RECEIVED. PATIENT DISCHARGED BEFORE EVALUATION COULD BE COMPLETED.
== END 2021-10-26 10:11 | disposition home or self-care (01) | DRG 918 ==
LOC: ER 02:20 → NP 06:00
PROVIDERS: Admitting Provider Psychiatry & Neurology Psychiatry; Emergency Provider Emergency Medicine; PCP Internal Medicine; Visit Provider Psychiatry & Neurology Psychiatry
DX: T43.212A Poisoning by selective serotonin and norepinephrine reuptake inhibitors, intentional self-harm, initial encounter (principal); R45.851 Suicidal ideations; F33.2 Major depressive disorder, recurrent severe without psychotic features; T43.222A Poisoning by selective serotonin reuptake inhibitors, intentional self-harm, initial encounter; Z63.0 Problems in relationship with spouse or partner; F15.10 Other stimulant abuse, uncomplicated; F17.210 Nicotine dependence, cigarettes, uncomplicated
CPT/HCPCS: 80053; 80306; 80307; 83735; 84403; 84443; 85025; 93005; 96372; 99285

== ENCOUNTER 2021-11-04 05:11 | Emergency (ER) | payer MEDICAID, SELFPAY ==
[2021-11-04] VITALS (7 sets, daily range): BP systolic 116–175; BP diastolic 70–110; PULSE 79–112; RESP 15–25; TEMP 36.4; O2SAT 94–100; BMI 39.0
--- NOTE | 2021-11-04 05:25 | XRR_ITS ---
PROCEDURE INFORMATION: Exam: XR Chest Exam date and time: 11/04/2021 5:25 AM Age: 36 years old Clinical indication: Other: No complaints; Patient HX: No chest compliants, headache; Additional info: CVA TECHNIQUE: Imaging protocol: XR of the chest. Views: 1 view. COMPARISON: CR Chest 2 views* [id number] 07/07/2019 9:07 AM FINDINGS: Lungs: Unremarkable. No consolidation. Pleural spaces: Unremarkable. No pleural effusion. No pneumothorax. Heart/Mediastinum: Unremarkable. No cardiomegaly. Bones/joints: Unremarkable. XR/XR chest 1V portable [id number] IMPRESSION: No acute findings.
--- NOTE | 2021-11-04 05:25 | CTR_ITS ---
PROCEDURE INFORMATION: Exam: CT Head Without Contrast Exam date and time: 11/04/2021 5:25 AM Age: 36 years old Clinical indication: Pain; Weakness, extremity; Right; Headache; Additional info: Symptoms of acute stroke TECHNIQUE: Imaging protocol: Computed tomography of the head without contrast. Radiation optimization: All CT scans at this facility use at least one of these dose optimization techniques: automated exposure control; mA and/or kV adjustment per patient size (includes targeted exams where dose is matched to clinical indication); or iterative reconstruction. Other technique: STROKE PROTOCOL was implemented. COMPARISON: CR Cervical Spine Flex/Ext [id number] 08/09/2019 1:36 PM RADIATION DOSE METRICS: Total DLP (mGy-cm): 962.16 FINDINGS: Brain: Normal. No hemorrhage. Unremarkable white matter. No mass effect. Cerebral ventricles: No ventriculomegaly. Paranasal sinuses: Visualized sinuses are unremarkable. No fluid levels. Mastoid air cells: Visualized mastoid air cells are well aerated. Bones/joints: Unremarkable. No acute fracture. Soft tissues: Unremarkable. CT/CT head wo con* [id number] IMPRESSION: No acute intracranial abnormality. ASSESSMENT: ASPECTS (Earline Stroke Program Early CT Score) is 10.
--- NOTE | 2021-11-04 05:25 | ECG_ITS ---
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 Measurements Intervals [place] Rate: 105 P: 83 WV: 174 QRS: 89 QRSD: 87 T: 81 QT: 311 QTc: 412 Interpretive Statements SINUS TACHYCARDIA MODERATE ST DEPRESSION [0.05+ mV ST DEPRESSION] INTERPRETATION BASED ON A DEFAULT AGE OF 40 YEARS Compared to ECG 10/23/2021 01:52:15 ST (T wave) deviation now present Sinus rhythm no longer present Electronically Signed On 11-04-2021 17:09:25 REMOVABLE PROSTHODONTIST by Korin Cochran M.D. [email or web address]
--- NOTE | 2021-11-04 05:29 | ED_ITS ---
Documented by User: Sean Messina MD 11/04/21 05:35 HPI - Neuro Symptoms/Deficit General: Chief Complaint: Neuro Symptoms/Deficit Stated Complaint: Cant Speak\Headache\Smell off possible stroke Time Seen by Provider: 11/04/21 05:22 Source: patient Mode of arrival: ambulatory Limitations: no limitations History of Present Illness: 36-year-old male is here with other individual she states that he had been completely normal up until roughly 4 AM. She states he then started having difficulty speaking patient here is trying to get words out but states is having a difficult time talking he is able to say some words and answer some questions but seems to be having some word finding difficulty. He has had a slight headache she states that he complained of some blurry vision as well no extremity weakness no history of strokes. No chest pain Associated symptoms: Reports headache(s); Deny chest pain, nausea or vomiting Review of Systems Const: Denies: fever(s), chills, body aches or change in appetite Eyes: Denies: blurry vision or eye discomfort ENMT: Denies: throat pain or dental pain Card: Denies: chest pain Resp: Denies: dyspnea GI: Denies: abdominal pain, nausea, vomiting or diarrhea : Denies: dysuria Musc: Denies: neck pain or back pain Skin/Breast: Denies: rash Neuro: Reports: headache(s) and Slurred speech present Psych: Denies: depression [place]/Lymph: Denies: easy bruising All/Imm: Denies: urticaria PFSH ED PFSH: Medical History Erectile dysfunction History of kidney stones Low testosterone in male Lower urinary tract symptoms Surgical History History of tonsillectomy and adenoidectomy Family History Father , at age 68 Alcoholic Mother Cancer BREAST CANCER Sister Cancer Other CAD (coronary artery disease) Diabetes Hypertension Social History Alcohol intake: unknown Adopted: No Caregiver/support person: No Marital status: Current occupational status: unemployed History of recent travel: No NIH stroke score NIHSS: Level Of Consciousness - 1a: 0 Level Of Consciousness Questions - 1b: Both Correct Level Of Consciousness Commands - 1c: Both Correct Best Gaze - 2: Normal Visual Mittal - 3: No Visual Loss Facial Palsy - 4: Normal Motor Arm Right - 5: No Drift Motor Arm Left - 5: No Drift Motor Leg Right - 6: No Drift Motor Leg Left - 6: No Drift Limb Ataxia - 7: Absent Sensory - 8: Normal Best Language - 9: Mild/Moderate Aphasia Dysarthia - 10: Mild/Moderate Dysarthia Extinction And Inattention - 11: 0 Score: Total Score: 2 Physical Exam Const: COMMON NORMALS: no acute distress, patient oriented x3 and healthy appearing HENMT: COMMON NORMALS: normocephalic and atraumatic HEAD & SCALP: normocephalic and atraumatic Eye: COMMON NORMALS: Equal, round and reactive pupils present and EOMs intact bilaterally PUPIL: Yes Equal, round and reactive pupils present Neck/C-Spine: COMMON NORMALS: full ROM and supple Chest: COMMONS NORMALS: normal inspection of the chest and normal palpation of entire chest wall Resp: COMMON NORMALS: normal respiratory effort, No retractions, No use of accessory muscles and clear to auscultation bilaterally AUSCULTATION: clear to auscultation bilaterally Cardio: COMMON NORMALS: regular rate, regular rhythm and No murmurs present (Cardio) RATE: regular rate RHYTHM: regular rhythm GI: COMMON NORMALS: Normal to inspection, nondistended, normoactive bowel sounds present, Soft to palpation, non-tender and no masses PALPATION: Yes Soft to palpation Extremity: COMMON NORMALS: normal to inspection and full ROM Neuro: COMMON NORMALS: patient oriented x3, moves all extremities and no focal motor deficits SPEECH: abnormal speech and expressive aphasia Psych: COMMON NORMALS: mental status grossly normal, Normal thought process present and cooperative THOUGHT PROCESS: Normal thought process present Skin: COMMON NORMALS: no rashes or lesions noted and no wounds GENERAL SKIN EXAM: no rashes or lesions noted Course Vital Signs: Vital signs: Vital Signs Temperature 97.6 F 11/04/21 05:18 Pulse Rate 79 11/04/21 09:43 Respiratory Rate 19 H 11/04/21 09:43 Blood Pressure 135/70 11/04/21 09:43 Pulse Oximetry 100 11/04/21 09:43 MDM - Neuro Symptoms/Deficit Lab Data : 11/04/21 05:45 11/04/21 05:45 Radiology Impressions Chest X-Ray 11/04/21 05:25 IMPRESSION: No acute findings. Head CT 11/04/21 05:25 IMPRESSION: No acute intracranial abnormality. ASSESSMENT: ASPECTS ([place] Stroke Program Early CT Score) is 10. Head/Neck CTA 11/04/21 05:43 IMPRESSION: No vascular stenosis or occlusion. IMPRESSION: No cervical vascular stenosis or occlusion. No evidence of dissection. REFERENCES: NASCET CRITERIA. The degree of internal carotid artery stenosis is based on NASCET criteria. Normal is no stenosis. Mild is less than 50% stenosis. Moderate is 50-69% stenosis. Severe is 70% to 99% stenosis. Total occlusion is no detectable patent lumen. Laboratory Results WBC 13.0 10^3/uL (4.0-10.0) H 11/04/21 05:45 RBC 5.88 10^6/uL (4.1-5.3) H 11/04/21 05:45 Hgb 16.9 g/dL (11.7-16.6) H 11/04/21 05:45 Hct 50.8 % (42.0-52.0) 11/04/21 05:45 MCV 86.4 fl (80-94) 11/04/21 05:45 MCH 28.7 pg (28.0-34.0) 11/04/21 05:45 MCHC 33.3 g/dL (30.0-36.0) 11/04/21 05:45 RDW 12.7 % (12.1-15.1) 11/04/21 05:45 Plt Count 280 10^3/cmm (130-400) 11/04/21 05:45 MPV 10.4 fL (7.4-10.4) 11/04/21 05:45 Neut % (Auto) 58.5 % 11/04/21 05:45 Lymph % (Auto) 31.2 % 11/04/21 05:45 [place] % (Auto) 8.3 % 11/04/21 05:45 Eos % (Auto) 1.3 % 11/04/21 05:45 Baso % (Auto) 0.5 % 11/04/21 05:45 Neut # (Auto) 7.60 10^3/uL (1.8-7.7) 11/04/21 05:45 Lymph # (Auto) 4.1 10^3/uL (0.8-4.8) 11/04/21 05:45 [place] # (Auto) 1.1 10^3/uL (0.2-0.9) H 11/04/21 05:45 Eos # (Auto) 0.2 10^3/uL (0.0-0.8) 11/04/21 05:45 Baso # (Auto) 0.1 10^3/uL (0.0-0.1) 11/04/21 05:45 Nucleated RBC % (auto) 0 % 11/04/21 05:45 Nucleated RBCs # 0.0 /100WBC 11/04/21 05:45 PT 12.90 SECONDS (12.1-14.9) 11/04/21 05:45 INR 0.94 (0.8-1.2) 11/04/21 05:45 APTT 31.7 SECONDS (23.9-36.7) 11/04/21 05:45 Sodium 140 mmol/L (136-145) 11/04/21 05:45 Potassium 4.0 mmol/L (3.5-5.1) 11/04/21 05:45 Chloride 104 mmol/L (98-107) 11/04/21 05:45 Carbon Dioxide 22 mmol/L (22-29) 11/04/21 05:45 Anion Gap 18.0 (5-19) 11/04/21 05:45 BUN 10 mg/dL (6-20) 11/04/21 05:45 Creatinine 1.0 mg/dL (0.7-1.2) 11/04/21 05:45 GFR Calculation 85.0 mL/min (90-130) L 11/04/21 05:45 Glucose 68 mg/dL (65-115) 11/04/21 05:45 POC Glucose 81 mg/dL (70-110) 11/04/21 05:38 Calculated Osmolality 287 mOsm/kg (285-295) 11/04/21 05:45 Calcium 9.8 mg/dL (8.5-10.5) 11/04/21 05:45 Total Bilirubin 0.5 mg/dL (0.15-1.2) 11/04/21 05:45 AST 17 U/L (0-40) 11/04/21 05:45 ALT 35 U/L (0-41) 11/04/21 05:45 Alkaline Phosphatase 83 IU/L (40-130) 11/04/21 05:45 Troponin T Baseline Cancelled 11/04/21 08:24 Troponin T 120 Minute Cancelled 11/04/21 08:26 Delta Troponin T Cancelled 11/04/21 08:26 Total Protein 7.2 g/dL (6.6-8.7) 11/04/21 05:45 Albumin 4.5 g/dL (3.5-5.2) 11/04/21 05:45 Globulin 2.7 g/dL (1.3-4.6) 11/04/21 05:45 Urine Color Yellow (Yellow) 11/04/21 07:20 Urine Appearance Clear (CLEAR) 11/04/21 07:20 Urine pH 5 (5-7) 11/04/21 07:20 Ur Specific Curtis 1.020 (1.005-1.030) 11/04/21 07:20 Urine Protein Neg (Negative) 11/04/21 07:20 Urine Glucose (UA) Norm (Normal) 11/04/21 07:20 Urine Ketones Negative (Negative) 11/04/21 07:20 Urine Blood Neg (Negative) 11/04/21 07:20 Urine Nitrate Negative (Negative) 11/04/21 07:20 Urine Bilirubin Neg (Negative) 11/04/21 07:20 Urine Urobilinogen Norm mg/dL (Negative) 11/04/21 07:20 Ur Leukocyte Esterase Negative (Negative) 11/04/21 07:20 Urine Opiates Screen Negative ng/mL (Negative) 11/04/21 07:20 Ur Barbiturates Screen Negative ng/mL (Negative) 11/04/21 07:20 Ur Phencyclidine Scrn Negative ng/mL (Negative) 11/04/21 07:20 Ur Amphetamines Screen Positive ng/mL (Negative) H 11/04/21 07:20 U Benzodiazepines Scrn Negative ng/mL (Negative) 11/04/21 07:20 Urine Cocaine Screen Negative ng/mL (Negative) 11/04/21 07:20 U Marijuana (THC) Screen Negative ng/mL (Negative) 11/04/21 07:20 EKG Data EKG 1: I personally reviewed and interpreted this EKG as follows: EKG interpretation date: 11/04/21 EKG interpretation time: 05:23 Interpretation: sinus tach hr [address] or t wave abnormalities qrs 87 qtc 372 EKG 2: I personally reviewed and interpreted this EKG as follows: EKG interpretation date: 11/04/21 EKG interpretation time: 05:23 Interpretation: sinus tach hr [address] or t wave abnormalities qrs 87 qtc 373 Discharge Plan Discharge Patient Disposition: Home Clinical Impression: Aphasia, Methamphetamine abuse, Benign essential HTN Condition: Stable Prescriptions: No Action testosterone cypionate 200 mg/mL oil 200 mg IM .EVERY OTHER WEEK Qty: 10 5RF escitalopram oxalate 10 mg Tablet 10 mg PO DAILY 30 Days Qty: 30 0RF Discharge Orders: Discharge ED (Routine); Ordered 11/04/21 Ordered By: Hieu Redmond Referrals: Ann-Marie Steven MD [Primary Care Provider] - Discharge Diet: Usual diet Discharge Activity: Limit activity as instructed Patient Instructions: Opioid Safety Activity Restrictions/Additional Instructions: Limit exertional activities. Avoid nonprescribed medications. Follow-up with your primary care doctor within the week regarding the MRI and your blood pr essure. Sign Out Sign Out Data: Patient Sign Out occurred on 11/04/21 at 07:09. Patient's care was discussed, and care was transferred from to Hieu Redmond DO. Coding Level of Care Code ED Compliance Representative Dealer for Chg Fwd Exam Comprehensive Documented by User: Hieu Redmond DO 11/04/21 14:57 HPI - Neuro Symptoms/Deficit General: Chief Complaint: Neuro Symptoms/Deficit Stated Complaint: Cant Speak\Headache\Smell off possible stroke Time Seen by Provider: 11/04/21 05:22 PFSH ED PFSH: Medical History Erectile dysfunction History of kidney stones Low testosterone in male Lower urinary tract symptoms Surgical History History of tonsillectomy and adenoidectomy Family History Father , at age 68 Alcoholic Mother Cancer BREAST CANCER Sister Cancer Other CAD (coronary artery disease) Diabetes Hypertension Social History Alcohol intake: unknown Adopted: No Caregiver/support person: No Marital status: Current occupational status: unemployed History of recent travel: No NIH stroke score Score: Total Score: 2 Course Vital Signs: Vital signs: Vital Signs Temperature 97.6 F 11/04/21 05:18 Pulse Rate 79 11/04/21 09:43 Respiratory Rate 19 H 11/04/21 09:43 Blood Pressure 135/70 11/04/21 09:43 Pulse Oximetry 100 11/04/21 09:43 MDM - Neuro Symptoms/Deficit Medical Decision Making Care assumed a change of shift. Reviewed labs and imaging and EKG. Patient came planes of some chest pain at the time where to let him go to troponins these are also negative. Discussed all the lab findings with him including the positive vitamin and drug screen we will have him set up for an MRI follow-up with neurology Lab Data : 11/04/21 05:45 11/04/21 05:45 Radiology Impressions Chest X-Ray 11/04/21 05:25 IMPRESSION: No acute findings. Head CT 11/04/21 05:25 IMPRESSION: No acute intracranial abnormality. ASSESSMENT: ASPECTS ([place] Stroke Program Early CT Score) is 10. Head/Neck CTA 11/04/21 05:43 IMPRESSION: No vascular stenosis or occlusion. IMPRESSION: No cervical vascular stenosis or occlusion. No evidence of dissection. REFERENCES: NASCET CRITERIA. The degree of internal carotid artery stenosis is based on NASCET criteria. Normal is no stenosis. Mild is less than 50% stenosis. Moderate is 50-69% stenosis. Severe is 70% to 99% stenosis. Total occlusion is no detectable patent lumen. Laboratory Results WBC 13.0 10^3/uL (4.0-10.0) H 11/04/21 05:45 RBC 5.88 10^6/uL (4.1-5.3) H 11/04/21 05:45 Hgb 16.9 g/dL (11.7-16.6) H 11/04/21 05:45 Hct 50.8 % (42.0-52.0) 11/04/21 05:45 MCV 86.4 fl (80-94) 11/04/21 05:45 MCH 28.7 pg (28.0-34.0) 11/04/21 05:45 MCHC 33.3 g/dL (30.0-36.0) 11/04/21 05:45 RDW 12.7 % (12.1-15.1) 11/04/21 05:45 Plt Count 280 10^3/cmm (130-400) 11/04/21 05:45 MPV 10.4 fL (7.4-10.4) 11/04/21 05:45 Neut % (Auto) 58.5 % 11/04/21 05:45 Lymph % (Auto) 31.2 % 11/04/21 05:45 [place] % (Auto) 8.3 % 11/04/21 05:45 Eos % (Auto) 1.3 % 11/04/21 05:45 Baso % (Auto) 0.5 % 11/04/21 05:45 Neut # (Auto) 7.60 10^3/uL (1.8-7.7) 11/04/21 05:45 Lymph # (Auto) 4.1 10^3/uL (0.8-4.8) 11/04/21 05:45 [place] # (Auto) 1.1 10^3/uL (0.2-0.9) H 11/04/21 05:45 Eos # (Auto) 0.2 10^3/uL (0.0-0.8) 11/04/21 05:45 Baso # (Auto) 0.1 10^3/uL (0.0-0.1) 11/04/21 05:45 Nucleated RBC % (auto) 0 % 11/04/21 05:45 Nucleated RBCs # 0.0 /100WBC 11/04/21 05:45 PT 12.90 SECONDS (12.1-14.9) 11/04/21 05:45 INR 0.94 (0.8-1.2) 11/04/21 05:45 APTT 31.7 SECONDS (23.9-36.7) 11/04/21 05:45 Sodium 140 mmol/L (136-145) 11/04/21 05:45 Potassium 4.0 mmol/L (3.5-5.1) 11/04/21 05:45 Chloride 104 mmol/L (98-107) 11/04/21 05:45 Carbon Dioxide 22 mmol/L (22-29) 11/04/21 05:45 Anion Gap 18.0 (5-19) 11/04/21 05:45 BUN 10 mg/dL (6-20) 11/04/21 05:45 Creatinine 1.0 mg/dL (0.7-1.2) 11/04/21 05:45 GFR Calculation 85.0 mL/min (90-130) L 11/04/21 05:45 Glucose 68 mg/dL (65-115) 11/04/21 05:45 POC Glucose 81 mg/dL (70-110) 11/04/21 05:38 Calculated Osmolality 287 mOsm/kg (285-295) 11/04/21 05:45 Calcium 9.8 mg/dL (8.5-10.5) 11/04/21 05:45 Total Bilirubin 0.5 mg/dL (0.15-1.2) 11/04/21 05:45 AST 17 U/L (0-40) 11/04/21 05:45 ALT 35 U/L (0-41) 11/04/21 05:45 Alkaline Phosphatase 83 IU/L (40-130) 11/04/21 05:45 Troponin T Baseline Cancelled 11/04/21 08:24 Troponin T 120 Minute Cancelled 11/04/21 08:26 Delta Troponin T Cancelled 11/04/21 08:26 Total Protein 7.2 g/dL (6.6-8.7) 11/04/21 05:45 Albumin 4.5 g/dL (3.5-5.2) 11/04/21 05:45 Globulin 2.7 g/dL (1.3-4.6) 11/04/21 05:45 Urine Color Yellow (Yellow) 11/04/21 07:20 Urine Appearance Clear (CLEAR) 11/04/21 07:20 Urine pH 5 (5-7) 11/04/21 07:20 Ur Specific Curtis 1.020 (1.005-1.030) 11/04/21 07:20 Urine Protein Neg (Negative) 11/04/21 07:20 Urine Glucose (UA) Norm (Normal) 11/04/21 07:20 Urine Ketones Negative (Negative) 11/04/21 07:20 Urine Blood Neg (Negative) 11/04/21 07:20 Urine Nitrate Negative (Negative) 11/04/21 07:20 Urine Bilirubin Neg (Negative) 11/04/21 07:20 Urine Urobilinogen Norm mg/dL (Negative) 11/04/21 07:20 Ur Leukocyte Esterase Negative (Negative) 11/04/21 07:20 Urine Opiates Screen Negative ng/mL (Negative) 11/04/21 07:20 Ur Barbiturates Screen Negative ng/mL (Negative) 11/04/21 07:20 Ur Phencyclidine Scrn Negative ng/mL (Negative) 11/04/21 07:20 Ur Amphetamines Screen Positive ng/mL (Negative) H 11/04/21 07:20 U Benzodiazepines Scrn Negative ng/mL (Negative) 11/04/21 07:20 Urine Cocaine Screen Negative ng/mL (Negative) 11/04/21 07:20 U Marijuana (THC) Screen Negative ng/mL (Negative) 11/04/21 07:20 Discharge Plan Discharge Patient Disposition: Home Clinical Impression: Aphasia, Methamphetamine abuse, Benign essential HTN Condition: Stable Prescriptions: No Action testosterone cypionate 200 mg/mL oil 200 mg IM .EVERY OTHER WEEK Qty: 10 5RF escitalopram oxalate 10 mg Tablet 10 mg PO DAILY 30 Days Qty: 30 0RF Discharge Orders: Discharge ED (Routine); Ordered 11/04/21 Ordered By: Hieu Redmond Referrals: Ann-Marie Steven MD [Primary Care Provider] - Discharge Diet: Usual diet Discharge Activity: Limit activity as instructed Patient Instructions: Opioid Safety Activity Restrictions/Additional Instructions: Limit exertional activities. Avoid nonprescribed medications. Follow-up with your primary care doctor within the week regarding the MRI and your blood pressure. Sign Out Sign Out Data: Patient Sign Out occurred on 11/04/21 at 07:09. Patient's care was discussed, and care was transferred from to Hieu Redmond DO. Coding Level of Care Code ED Compliance Representative Dealer for Noe Fwd Exam Comprehensive
--- NOTE | 2021-11-04 05:43 | CTR_ITS ---
PROCEDURE INFORMATION: Exam: CT Angiography Head With Contrast, Arteriography Exam date and time: 11/04/2021 5:43 AM Age: 36 years old Clinical indication: Pain; Headache; Additional info: AGUILA TECHNIQUE: Imaging protocol: Computed tomography angiography of the head with contrast. Exam focused on the arteries. 3D rendering (Not supervised by radiologist): MIP and/or 3D reconstructed images were created by the technologist. Radiation optimization: All CT scans at this facility use at least one of these dose optimization techniques: automated exposure control; mA and/or kV adjustment per patient size (includes targeted exams where dose is matched to clinical indication); or iterative reconstruction. Contrast material: OMNI 350; Contrast volume: 95 ml; Contrast route: INTRAVENOUS (IV); COMPARISON: CT head wo con* [id number] 11/04/2021 5:31 AM RADIATION DOSE METRICS: Total DLP (mGy-cm): 2753.26 FINDINGS: ANTERIOR CIRCULATION: Right internal carotid artery: Unremarkable. Intracranial segment is patent with no significant stenosis. No aneurysm. Right middle cerebral artery: Unremarkable. No occlusion or significant stenosis. No aneurysm. Right anterior cerebral artery: Unremarkable. No occlusion or significant stenosis. No aneurysm. Left internal carotid artery: Unremarkable. Intracranial segment is patent with no significant stenosis. No aneurysm. Left middle cerebral artery: Unremarkable. No occlusion or significant stenosis. No aneurysm. Left anterior cerebral artery: Unremarkable. No occlusion or significant stenosis. No aneurysm. POSTERIOR CIRCULATION: Right vertebral artery: No occlusion or significant stenosis. No aneurysm. Posterior inferior cerebellar artery is patent. Left vertebral artery: No occlusion or significant stenosis. No aneurysm. Posterior inferior cerebellar artery is patent. Basilar artery: No occlusion or significant stenosis. No aneurysm. Patent bilateral superior cerebellar arteries. Right posterior cerebral artery: Unremarkable. No occlusion or significant stenosis. No aneurysm. Left posterior cerebral artery: No occlusion or significant stenosis. No aneurysm. Brain: No definite mass, mass effect, or midline shift. Cerebral ventricles: No ventriculomegaly. Bones/joints: Unremarkable. No acute fracture. Soft tissues: Unremarkable. PROCEDURE INFORMATION: Exam: CT Angiography Neck With Contrast Exam date and time: 11/04/2021 5:43 AM Age: 36 years old Clinical indication: Pain; Headache; Additional info: AGUILA TECHNIQUE: Imaging protocol: Computed tomography angiography of the neck with contrast. 3D rendering (Not supervised by radiologist): MIP and/or 3D reconstructed images were created by the technologist. Radiation optimization: All CT scans at this facility use at least one of these dose optimization techniques: automated exposure control; mA and/or kV adjustment per patient size (includes targeted exams where dose is matched to clinical indication); or iterative reconstruction. Contrast material: OMNI 350; Contrast volume: 95 ml; Contrast route: INTRAVENOUS (IV); COMPARISON: CT head wo con* [id number] 11/04/2021 5:31 AM RADIATION DOSE METRICS: Total DLP (mGy-cm): 2753.26 FINDINGS: Right common carotid artery: No stenosis. No dissection or occlusion. Right internal carotid artery: No stenosis of the extracranial segment. No dissection or occlusion. Right external carotid artery: No occlusion or stenosis of the origin. Left common carotid artery: No stenosis. No dissection or occlusion. Left internal carotid artery: No stenosis of the extracranial segment. No dissection or occlusion. Left external carotid artery: No occlusion or stenosis of the origin. Right vertebral artery: No stenosis. No dissection or occlusion. Left vertebral artery: No stenosis. No dissection or occlusion. Aorta: Aortic arch is normal caliber. No aneurysm or dissection. Three vessel aortic arch without great vessel stenosis. Other arteries: Widely patent bilateral subclavian arteries. Soft tissues: Normal. No significant soft tissue swelling. Bones/joints: No acute fracture. Multilevel disc findings: Degenerative changes with mild disc height loss and small disc osteophyte complexes C5-C6 and C6-C7. No significant spinal stenosis or neural foraminal narrowing. CT/CT angio headneck* [id number] IMPRESSION: No vascular stenosis or occlusion. IMPRESSION: No cervical vascular stenosis or occlusion. No evidence of dissection. REFERENCES: NASCET CRITERIA. The degree of internal carotid artery stenosis is based on NASCET criteria. Normal is no stenosis. Mild is less than 50% stenosis. Moderate is 50-69% stenosis. Severe is 70% to 99% stenosis. Total occlusion is no detectable patent lumen.
[2021-11-04 05:44] LABS: Glucose Point of Care 81 mg/dL (70-110)
[2021-11-04] MEDS: valproic acid inj 500 MG in sodium chloride 0.9% 50 ML 55 MG IV (05:57)
[2021-11-04 05:59] LABS: Basophils # 0.1 10^3/uL (0.0-0.1); Basophils % 0.5 %; Eosinophils # 0.2 10^3/uL (0.0-0.8); Eosinophils % 1.3 %; Hematocrit 50.8 % (42.0-52.0); Hemoglobin 16.9 g/dL (11.7-16.6); Lymphocytes # 4.1 10^3/uL (0.8-4.8); Lymphocytes % 31.2 %; Mean Corpuscular HGB Conc 33.3 g/dL (30.0-36.0); Mean Corpuscular Hemoglobin 28.7 pg (28.0-34.0); Mean Corpuscular Volume 86.4 fl (80-94); Mean Platelet Volume 10.4 fL (7.4-10.4); Monocytes # 1.1 10^3/uL (0.2-0.9); Monocytes % 8.3 %; Neutrophils % 58.5 %; Nucleated Red Blood Cells % 0 %; Platelet Count 280 10^3/cmm (130-400); Red Blood Count 5.88 10^6/uL (4.1-5.3); Red Cell Distribution Width 12.7 % (12.1-15.1)
[2021-11-04] MEDS: labetalol 5 mg/mL SDV 20mL 10 MG IVP (06:11)
[2021-11-04 06:17] LABS: INR 0.94 (0.8-1.2)
[2021-11-04 06:18] LABS: Partial Thromboplastin Time 31.7 SECONDS (23.9-36.7)
[2021-11-04 06:23] LABS: Alanine Aminotransferase 35 U/L (0-41); Albumin Level 4.5 g/dL (3.5-5.2); Alkaline Phosphatase 83 IU/L (40-130); Aspartate Amino Transferase 17 U/L (0-40); Blood Urea Nitrogen 10 mg/dL (6-20); Calcium 9.8 mg/dL (8.5-10.5); Carbon Dioxide 22 mmol/L (22-29); Chloride 104 mmol/L (98-107); Globulin 2.7 g/dL (1.3-4.6); Glucose 68 mg/dL (65-115); Osmolality Calculated 287 mOsm/kg (285-295); Sodium 140 mmol/L (136-145); Total Bilirubin 0.5 mg/dL (0.15-1.2); Total Protein 7.2 g/dL (6.6-8.7)
[2021-11-04] MEDS: iohexol 350 mg/mL 100 mL Btl IV (06:37)
--- NOTE | 2021-11-04 06:51 | PC.NURSE ---
patient states headache improved. not as intense.
--- NOTE | 2021-11-04 07:09 | PC.NURSE ---
THIS NURSE ENTERED PATIENT ROOM WHEN IV ALARM WAS SOUNDING. PATIENT WAS SITTING AT THE EDGE OF THE BED APPEARING TO BE VERY UPSET AND AGITATED. PATIENT STATES THAT HE WAS VERY CONFUSED AND THIS NURSE WAS DEMANDING WHEN ASKING FOR A URINE SAMPLE. NURSE EDUCATED THE PATIENT THAT THE PHYSICIAN IS WANTING A URINE SAMPLE SO ONE IS NEEDED SOON POSSIBLE. PATIENT ALSO STATES THAT HE DOES NOT WANT TO DEAL WITH THAT DOCTOR BECAUSE YOU MIGHT WELL BE TALKING TO A BRICK WALL. PROVIDER AND CHARGE NURSE NOTIFIED OF PATIENT STATEMENTS AND DEMEANOR.
[2021-11-04 07:42] LABS: Add Urine Microscopic? NO; Charge for UA Resulting for Rev
[2021-11-04 07:47] LABS: Bilirubin Urine Neg (Negative); Blood Urine Neg (Negative); Glucose Urine UA Norm (Normal); Ketones Urine Negative (Negative); Leukocyte Esterase Urine Negative (Negative); Nitrate Urine Negative (Negative); Protein Urine Neg (Negative); Urine Appearance Clear (CLEAR); Urine Color Yellow (Yellow); Urobilinogen Urine Norm (Negative); pH Urine 5 (5-7)
[2021-11-04] MEDS: lidocaine 2% viscous 15 ML, aluminum-mag hydrox-simethicon 30 ML, sucralfate oral liq 1 GM PO (07:47)
[2021-11-04 07:56] LABS: Amphetamines Screen Urine Positive (Negative); Barbiturates Screen Urine Negative (Negative); Benzodiazepines Screen Urine Negative (Negative); Cocaine Screen Urine Negative (Negative); Opiate Screen Urine Negative (Negative); PCP Screen Urine Negative (Negative); THC Screen Urine Negative (Negative)
--- NOTE | 2021-11-04 08:06 | ECG_ITS ---
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 Measurements Intervals [place] Rate: 93 P: 62 NE: 169 QRS: 87 QRSD: 86 T: 62 QT: 330 QTc: 412 Interpretive Statements SINUS RHYTHM Compared to ECG 11/04/2021 05:23:42 Sinus tachycardia no longer present ST (T wave) deviation no longer present Electronically Signed On 11-04-2021 17:09:21 CALL OUT CLERK by Korin Cochran M.D. [email or web address]
[2021-11-04 09:55] LABS: Troponin(5th) Baseline 7 ng/L (0-15)
[2021-11-04 10:00] LABS: Troponin 5 2HR Delta 0.7 ABS# (0-10)
--- NOTE | 2021-11-05 13:30 | PM.SAN ---
Stroke Alert Activation ED Arrival Date: 11/04/21 ED Arrival Time: : ED Physican at Bedside: : Last Known Normal/at Baseline: 1-2 hours ago Other Last Known Well Infomation: The patient says that he finished having sex when he developed a profound headache that was not like any headache that he ever had before. Suddenly he found he could not speak. He came to the emergency department where he was promptly evaluated by Dr. Messina. Stroke team was activated. I talked with Dr. Messina as soon as he returned from CAT scan. CAT scan of the head was normal. I evaluated the patient by telemetry stroke. He was complaining of a severe headache. He had an atypical halting speech pattern but he can get all of his words out, and sometimes he can speak normally and at other times he would pause. This appeared to be a functional abnormality. He could follow at 3 step command across the midline. He had no motor or sensory deficit. My impression was that the patient had migraine with functional speech disorder. Stroke Alert Activated by: Dr. Messina Stroke Alert Activation Time: Stroke MD @ Bedside Time: : NIH stroke score NIHSS: Level Of Consciousness - 1a: 0 Level Of Consciousness Questions - 1b: Both Correct Level Of Consciousness Commands - 1c: Both Correct Best Gaze - 2: Normal Visual Mittal - 3: No Visual Loss Facial Palsy - 4: Normal Motor Arm Right - 5: No Drift Motor Arm Left - 5: No Drift Motor Leg Right - 6: No Drift Motor Leg Left - 6: No Drift Limb Ataxia - 7: Absent Sensory - 8: Normal Best Language - 9: No Aphasia Dysarthia - 10: Normal Extinction And Inattention - 11: 0 Score: Total Score: 0 Stroke Alert Data/Treatment Time to CT of Head: CT Results Time: : CT Impression: Normal Stroke Risk Factors: obesity, smoker and substance abuse tPA Contraindication: tPA Contraindication: Treatment not indcated tPA Admin Prior to Arrival: No Patient & Family Educated on: Treament Plan Other Patient & Family Education: Risks of methamphetamine use Other Information: No intracranial or extracranial abnormalities on CT angiogram Critical Care Time Critical Care Time: less than 30 mins A&P Assessment and plan (1) Aphasia: Hesitating speech pattern with suggestion of functional illness probably related to an acute migraine. Recommended 500 mg of IV Depacon. Afterward the patient reported that his headache had improved and it was not as intense. Later he was agitated and accusatory and somewhat paranoid in response to a request to submit a urine sample. Dr. Redmond came on a change of shift and referred this patient to neurology. He sees Dr. Steven for primary care. Status: Acute (2) Methamphetamine abuse: Status: Acute (3) Depression: Status: Acute Qualifiers: Depression Type: major depressive disorder Major depression recurrence: recurrent Active/Remission status: currently active Major depression episode severity: severe Psychotic features: without psychotic features Qualified Code(s): F33.2 - Major depressive disorder, recurrent severe without psychotic features (4) Migraine headache with aura: Status: Acute Coding Level of Care Code Acute Business Continuity Planner for [facility] Diagnoses Aphasia R47.01 Methamphetamine abuse F15.10 Depression F33.2 Depression Type: major depressive disorder Major depression recurrence: recurrent Active/Remission status: currently active Major depression episode severity: severe Psychotic features: without psychotic features Migraine headache with aura G43.109
== END 2021-11-04 09:44 | disposition home or self-care (01) ==
PROVIDERS: Emergency Medicine; Emergency Provider Family Medicine; PCP Internal Medicine
DX: R47.01 Aphasia (principal); I10 Essential (primary) hypertension; F15.10 Other stimulant abuse, uncomplicated
CPT/HCPCS: 36416; 70450; 70496; 70498; 71045; 80053; 80306; 81003; 82962; 84484; 85025; 85610; 85730; 93005; 96365; 96375; 99284; J3490; Q9967

== ENCOUNTER 2021-11-13 22:47 | Emergency (ER) | payer MEDICAID, SELFPAY ==
[2021-11-13 22:49] VITALS: BP 214/131; PULSE 103; RESP 24; TEMP 36.6; O2SAT 96; BMI 41.8
--- NOTE | 2021-11-13 22:52 | CTR_ITS ---
PROCEDURE INFORMATION: Exam: CT Head Without Contrast Exam date and time: 11/13/2021 10:52 PM Age: 36 years old Clinical indication: Pain; Speech disturbance; Patient HX: Patient C/O headache with slurred speech. TECHNIQUE: Imaging protocol: Computed tomography of the head without contrast. Radiation optimization: All CT scans at this facility use at least one of these dose optimization techniques: automated exposure control; mA and/or kV adjustment per patient size (includes targeted exams where dose is matched to clinical indication); or iterative reconstruction. COMPARISON: CT head wo con* [id number] 11/04/2021 5:31 AM RADIATION DOSE METRICS: Total DLP (mGy-cm): 901.36 FINDINGS: Brain: Normal. No hemorrhage or evidence of acute infarction. No mass effect. Cerebral ventricles: No ventriculomegaly. Paranasal sinuses: Visualized sinuses are unremarkable. No fluid levels. Mastoid air cells: Visualized mastoid air cells are well aerated. Bones/joints: Unremarkable. No acute fracture. Soft tissues: Unremarkable. CT/CT head wo con* [id number] IMPRESSION: No acute intracranial abnormality.
--- NOTE | 2021-11-13 22:55 | ED_ITS ---
HPI - Headache General: Chief Complaint: Neuro Symptoms/Deficit Stated Complaint: Speech Impaired Leg numb Time Seen by Provider: 11/13/21 22:51 Source: patient Mode of arrival: ambulatory Limitations: no limitations History of Present Illness: 36-year-old male states he has been having a headache today along with some slurred speech and numbness in his legs. He was seen here last week for the same and diagnosed with complex migraine. He does have a headache then with worsening slurred speech she had a CT head and a CT angio head and neck were both normal he is given headache medicine felt much improved at that time. He does have a history of methamphetamine abuse. States his headache is the same headache as last time rates it at 8 out of 10 denies any worst improving factors. Associated symptoms: Deny chest pain, fever(s), nausea, rash or vomiting Review of Systems Const: Denies: fever(s), chills, body aches or change in appetite Eyes: Denies: blurry vision or eye discomfort ENMT: Denies: throat pain or dental pain Card: Denies: chest pain Resp: Denies: dyspnea GI: Denies: abdominal pain, nausea, vomiting or diarrhea : Denies: dysuria Musc: Denies: neck pain or back pain Skin/Breast: Denies: rash Neuro: Reports: headache(s) Psych: Denies: depression Clovis/Lymph: Denies: easy bruising All/Imm: Denies: urticaria PFSH ED PFSH: Medical History Erectile dysfunction History of kidney stones Low testosterone in male Lower urinary tract symptoms Surgical History History of tonsillectomy and adenoidectomy Family History Father , at age 68 Alcoholic Mother Cancer BREAST CANCER Sister Cancer Other CAD (coronary artery disease) Diabetes Hypertension Social History Alcohol intake: unknown Adopted: No Caregiver/support person: No Marital status: Current occupational status: unemployed History of recent travel: No Physical Exam Const: COMMON NORMALS: no acute distress, patient oriented x3 and healthy appearing HENMT: COMMON NORMALS: normocephalic and atraumatic HEAD & SCALP: normocephalic and atraumatic Eye: COMMON NORMALS: Equal, round and reactive pupils present and EOMs intact bilaterally PUPIL: Yes Equal, round and reactive pupils present Neck/C-Spine: COMMON NORMALS: full ROM and supple Chest: COMMONS NORMALS: normal inspection of the chest and normal palpation of entire chest wall Resp: COMMON NORMALS: normal respiratory effort, No retractions, No use of accessory muscles and clear to auscultation bilaterally AUSCULTATION: clear to auscultation bilaterally Cardio: COMMON NORMALS: regular rate, regular rhythm and No murmurs present (Cardio) RATE: regular rate RHYTHM: regular rhythm GI: COMMON NORMALS: Normal to inspection, nondistended, normoactive bowel sounds present, Soft to palpation, non-tender and no masses PALPATION: Yes Soft to palpation Extremity: COMMON NORMALS: normal to inspection and full ROM Neuro: COMMON NORMALS: patient oriented x3, moves all extremities and no focal motor deficits OTHER: Slight slurred speech no obvious other neuro deficits no facial droop no one- sided weakness Psych: COMMON NORMALS: mental status grossly normal, Normal thought process present and cooperative THOUGHT PROCESS: Normal thought process present Skin: COMMON NORMALS: no rashes or lesions noted and no wounds GENERAL SKIN EXAM: no rashes or lesions noted Course Vital Signs: Vital signs: Vital Signs Temperature 97.8 F 11/13/21 22:49 Pulse Rate 103 H 11/13/21 22:49 Respiratory Rate 24 H 11/13/21 22:49 Blood Pressure 214/131 11/13/21 22:49 Pulse Oximetry 96 11/13/21 22:49 MDM - Headache Medical Decision Making Patient presents here with headache likely complex migraine. No focal deficits here patient got angry per nurse during IV attempt was cussing at the nurse and his and then walked out of the ER. I was not able to speak to him before he walked out and he just left angry. Lab Data Radiology Impressions Head CT 11/13/21 22:52 IMPRESSION: No acute intracranial abnormality. Discharge Plan Discharge Condition: Stable Prescriptions: No Action testosterone cypionate 200 mg/mL oil 200 mg IM .EVERY OTHER WEEK Qty: 10 5RF escitalopram oxalate 10 mg Tablet 10 mg PO DAILY 30 Days Qty: 30 0RF Referrals: Ann-Marie Steven MD [Primary Care Provider] - Coding Level of Care Code ED Hospice Clinical Supervisor for Chg Fwd Exam Comprehensive
--- NOTE | 2021-11-13 23:49 | PC.NURSE ---
I went into start the patients IV and he was growling and waving his arms around. Pt. speaking in one word sentences. Pt. angry and pointing to where he wants the IV. Pt. flexing his arm and growling while attempting to start IV. I stepped out of the room to get a new IV and came back in the room and the patient states he wants to leave AMA and signs the form and then leave.
== END 2021-11-13 23:54 | disposition left against medical advice (07) ==
PROVIDERS: Emergency Provider Emergency Medicine; PCP Internal Medicine
DX: R47.81 Slurred speech (principal); R20.0 Anesthesia of skin
CPT/HCPCS: 70450; 99282

== ENCOUNTER 2022-01-11 03:05 | Inpatient (IN) | payer MEDICAID, SELFPAY ==
[2022-01-11 03:07] VITALS: BMI 31.1
--- NOTE | 2022-01-11 03:10 | W.ED.PSYCHS ---
HPI - Psych General: Chief Complaint: Psychiatric Symptoms Stated Complaint: HALLUCINATIONS Time Seen by Provider: 01/11/22 03:08 Source: patient, EMS and police Mode of arrival: EMS Limitations: no limitations History of Present Illness: 36-year-old male has a history of methamphetamine abuse called police tonight because he had used meth and was hallucinating and very agitated please called EMS as patient was not making any sense. He admits to meth use and thinks he may have used some bath salts. Here he says he is feeling concrete in his veins he thinks there is blood all over the floor having severe hallucinations and very loose thoughts. He is a little agitated but being cooperative at this time history is difficult at this time. Associated symptoms: Reports auditory hallucinations and visual hallucinations; Deny depression Review of Systems Const: Denies: fever(s), chills, body aches or change in appetite Eyes: Denies: blurry vision or eye discomfort ENMT: Denies: throat pain or dental pain Card: Denies: chest pain Resp: Denies: dyspnea GI: Denies: abdominal pain, nausea, vomiting or diarrhea : Denies: dysuria Musc: Denies: neck pain or back pain Skin/Breast: Denies: rash Neuro: Denies: headache(s) Psych: Reports: mood swings, irritability, visual hallucinations and auditory hallucinations; Denies: depression Clovis/Lymph: Denies: easy bruising All/Imm: Denies: urticaria PFSH ED PFSH: Medical History Erectile dysfunction History of kidney stones Low testosterone in male Lower urinary tract symptoms Surgical History History of tonsillectomy and adenoidectomy Family History Father , at age 68 Alcoholic Mother Cancer BREAST CANCER Sister Cancer Other CAD (coronary artery disease) Diabetes Hypertension Social History Alcohol intake: unknown Adopted: No Caregiver/support person: No Marital status: Current occupational status: unemployed History of recent travel: No Physical Exam Const: COMMON NORMALS: patient oriented x3 GENERAL APPEARANCE: in distress, disheveled and Limp noted HENMT: COMMON NORMALS: normocephalic and atraumatic HEAD & SCALP: normocephalic and atraumatic Eye: COMMON NORMALS: Equal, round and reactive pupils present and EOMs intact bilaterally PUPIL: Yes Equal, round and reactive pupils present Neck/C-Spine: COMMON NORMALS: full ROM and supple Chest: COMMONS NORMALS: normal inspection of the chest and normal palpation of entire chest wall Resp: COMMON NORMALS: normal respiratory effort, No retractions, No use of accessory muscles and clear to auscultation bilaterally AUSCULTATION: clear to auscultation bilaterally Cardio: COMMON NORMALS: regular rhythm and No murmurs present (Cardio) RATE: tachycardic RHYTHM: regular rhythm GI: COMMON NORMALS: Normal to inspection, nondistended, normoactive bowel sounds present, Soft to palpation, non-tender and no masses PALPATION: Yes Soft to palpation Extremity: COMMON NORMALS: normal to inspection and full ROM Neuro: COMMON NORMALS: patient oriented x3, moves all extremities and no focal motor deficits Psych: COMMON NORMALS: cooperative OTHER: Patient is extremely paranoid has very loose thoughts appears to be under the influence of drugs Skin: COMMON NORMALS: no rashes or lesions noted and no wounds GENERAL SKIN EXAM: no rashes or lesions noted Course Vital Signs: Vital signs: Vital Signs Temperature 98.4 F 01/11/22 03:18 Pulse Rate 96 01/11/22 04:32 Respiratory Rate 18 01/11/22 04:32 Blood Pressure 144/118 01/11/22 03:18 Pulse Oximetry 94 01/11/22 04:32 MDM - Psych Medical Decision Making 36-year-old presented here with likely meth induced psychosis. Patient was placed on a 96-hour hold as he is not safe on his own. Patient had to be medicated with Ativan to help calm his nerves he is calm and cooperative currently blood works normal I spoke to psychiatrist and will admit to the [facility]. Lab Data : 01/11/22 04:14 01/11/22 04:14 Laboratory Results WBC 15.3 10^3/uL (4.0-10.0) H 01/11/22 04:14 RBC 5.54 10^6/uL (4.1-5.3) H 01/11/22 04:14 Hgb 15.6 g/dL (11.7-16.6) 01/11/22 04:14 Hct 46.1 % (42.0-52.0) 01/11/22 04:14 MCV 83.2 fl (80-94) 01/11/22 04:14 MCH 28.2 pg (28.0-34.0) 01/11/22 04:14 MCHC 33.8 g/dL (30.0-36.0) 01/11/22 04:14 RDW 13.0 % (12.1-15.1) 01/11/22 04:14 Plt Count 255 10^3/cmm (130-400) 01/11/22 04:14 MPV 9.7 fL (7.4-10.4) 01/11/22 04:14 Neut % (Auto) 75.2 % 01/11/22 04:14 Lymph % (Auto) 14.8 % 01/11/22 04:14 Brewster % (Auto) 8.9 % 01/11/22 04:14 Eos % (Auto) 0.5 % 01/11/22 04:14 Baso % (Auto) 0.3 % 01/11/22 04:14 Neut # (Auto) 11.47 10^3/uL (1.8-7.7) H 01/11/22 04:14 Lymph # (Auto) 2.3 10^3/uL (0.8-4.8) 01/11/22 04:14 Brewster # (Auto) 1.4 10^3/uL (0.2-0.9) H 01/11/22 04:14 Eos # (Auto) 0.1 10^3/uL (0.0-0.8) 01/11/22 04:14 Baso # (Auto) 0.1 10^3/uL (0.0-0.1) 01/11/22 04:14 Nucleated RBC % (auto) 0 % 01/11/22 04:14 Nucleated RBCs # 0.0 /100WBC 01/11/22 04:14 Sodium 140 mmol/L (136-145) 01/11/22 04:14 Potassium 3.8 mmol/L (3.5-5.1) 01/11/22 04:14 Chloride 105 mmol/L (98-107) 01/11/22 04:14 Carbon Dioxide 21 mmol/L (22-29) L 01/11/22 04:14 Anion Gap 17.8 (5-19) 01/11/22 04:14 BUN 17 mg/dL (6-20) 01/11/22 04:14 Creatinine 1.0 mg/dL (0.7-1.2) 01/11/22 04:14 GFR Calculation 85.0 mL/min (90-130) L 01/11/22 04:14 Glucose 91 mg/dL (65-115) 01/11/22 04:14 Calculated Osmolality 291 mOsm/kg (285-295) 01/11/22 04:14 Calcium 10.3 mg/dL (8.5-10.5) 01/11/22 04:14 Total Bilirubin 0.6 mg/dL (0.15-1.2) 01/11/22 04:14 AST 17 U/L (0-40) 01/11/22 04:14 ALT 20 U/L (0-41) 01/11/22 04:14 Alkaline Phosphatase 96 IU/L (40-130) 01/11/22 04:14 Total Protein 7.3 g/dL (6.6-8.7) 01/11/22 04:14 Albumin 4.7 g/dL (3.5-5.2) 01/11/22 04:14 Globulin 2.6 g/dL (1.3-4.6) 01/11/22 04:14 Salicylates < 0.3 mg/dL (3-10) L 01/11/22 04:14 Acetaminophen < 5.0 ug/mL (10-30) L 01/11/22 04:14 Ethyl Alcohol < 10 mg/dL (0-10) 01/11/22 04:14 Discharge Plan Discharge Patient Disposition: Xfer Short-Term Hosp Clinical Impression: Methamphetamine abuse, Drug-induced psychotic disorder Condition: Stable Referrals: Ann-Marie Steven MD [Primary Care Provider] - Coding Level of Care Code ED Environmental Services Technician for Chg Fwd Exam Comprehensive
[2022-01-11 03:18] VITALS: BP 144/118; PULSE 126; RESP 24; TEMP 36.9; O2SAT 95
[2022-01-11] MEDS: haloperidol inj 5 mg/mL INJ 1 mL IM (03:20)
[2022-01-11] MEDS: LORazepam 2 mg/mL INJ 1 mL IV (03:20)
[2022-01-11] MEDS: diphenhydrAMINE 50 mg/mL SDV 1mL IVP (03:20)
[2022-01-11] MEDS: LORazepam 2 mg/mL INJ 1 mL IM ×2 (03:33→04:16)
[2022-01-11] MEDS: sodium chloride 0.9% 1,000 ML 999 ML IV (04:14)
[2022-01-11 04:18] LABS: Basophils # 0.1 10^3/uL (0.0-0.1); Basophils % 0.3 %; Eosinophils # 0.1 10^3/uL (0.0-0.8); Eosinophils % 0.5 %; Hematocrit 46.1 % (42.0-52.0); Hemoglobin 15.6 g/dL (11.7-16.6); Lymphocytes # 2.3 10^3/uL (0.8-4.8); Lymphocytes % 14.8 %; Mean Corpuscular HGB Conc 33.8 g/dL (30.0-36.0); Mean Corpuscular Hemoglobin 28.2 pg (28.0-34.0); Mean Corpuscular Volume 83.2 fl (80-94); Mean Platelet Volume 9.7 fL (7.4-10.4); Monocytes # 1.4 10^3/uL (0.2-0.9); Monocytes % 8.9 %; Neutrophils # 11.47 10^3/uL (1.8-7.7); Neutrophils % 75.2 %; Nucleated Red Blood Cells % 0 %; Platelet Count 255 10^3/cmm (130-400); Red Blood Count 5.54 10^6/uL (4.1-5.3); White Blood Count 15.3 10^3/uL (4.0-10.0)
[2022-01-11 04:32] VITALS: PULSE 96; RESP 18; O2SAT 94
--- NOTE | 2022-01-11 04:32 | PC.NURSE ---
Pt is asleep with eyes closed after multiple rounds of refusing care, blood draw, IV and medications. Pt is confused with delusional ideas, and poorly follows directions. Pt wallowing in the bed, crawling off the end of the gurney and flailing his extremities and yelling.
[2022-01-11 04:36] LABS: Alanine Aminotransferase 20 U/L (0-41); Albumin Level 4.7 g/dL (3.5-5.2); Alkaline Phosphatase 96 IU/L (40-130); Anion Gap 17.8 (5-19); Aspartate Amino Transferase 17 U/L (0-40); Blood Urea Nitrogen 17 mg/dL (6-20); Calcium 10.3 mg/dL (8.5-10.5); Carbon Dioxide 21 mmol/L (22-29); Chloride 105 mmol/L (98-107); Globulin 2.6 g/dL (1.3-4.6); Glucose 91 mg/dL (65-115); Osmolality Calculated 291 mOsm/kg (285-295); Potassium 3.8 mmol/L (3.5-5.1); Sodium 140 mmol/L (136-145); Total Bilirubin 0.6 mg/dL (0.15-1.2); Total Protein 7.3 g/dL (6.6-8.7)
[2022-01-11 04:38] LABS: Acetaminophen < 5.0 ug/mL (10-30); Alcohol Level < 10 mg/dL (0-10); Salicylate < 0.3 mg/dL (3-10)
[2022-01-11 05:53] VITALS: BP 132/71; PULSE 82; RESP 18; TEMP 36.2; O2SAT 95
[2022-01-11 06:13] VITALS: BP 119/61; RESP 20
--- NOTE | 2022-01-11 11:08 | PC.NURSE ---
Patient called and requested to speak with the physician regarding having her transferred to the [facility] for a thorough mental evaluation. Physician notified.
[2022-01-11 14:00] VITALS: BP 136/76; PULSE 90; RESP 20; TEMP 36.6; O2SAT 96
--- NOTE | 2022-01-11 14:52 | PC.NURSE ---
Prn note Patient verbally aggressive. He is in the bathroom of room banging on the wall, he refuses to take prn meds. Staff able to redirect. Patient states he is upset with his and is sad about her. He is agreeable to use his coping skills to calm down. He understands he cannot be banging on the bathroom wall. He is currently directly across from the nurses station and remains on 1:1 sitter for increased observation. Physician aware.
--- NOTE | 2022-01-11 15:46 | PC.NURSE ---
Addendum entered by Loren Mock RN 01/11/22 16:05: patient continued to escalate and stated he would leave. Staff attempted to redirect. Patient verbally aggressive, screaming at staff that he would leave. Staff attempted to explain he was on a 96 hour hold. Patient began slamming doors and screaming incoherently. Patient was not able to redirect. Patient screaming put him here so she can cheat Security arrived. Staff and security able to get patient to agree to meds po. Order received for Ativan 2mg Po and Haldol [address] Juan. Patient remains on 1:1 sitter. Meds given. Patient currently in room. Original Note: Prn note Patient continues to escalate, he refuses to redirect. Currently on the phone aggressively speaking with significant other.
[2022-01-11] MEDS: LORazepam 2 mg Tablet PO (16:09)
[2022-01-11] MEDS: haloperidol 5 mg Tablet PO (16:10)
--- NOTE | 2022-01-11 18:07 | PC.NURSE ---
Prn note Patient calm and sleeping at this time. Per physician may discontinue the 1;1 sitter.
[2022-01-11 20:29] VITALS: RESP 20
[2022-01-11] MEDS: amlodipine 5 mg Tablet PO (21:19)
--- NOTE | 2022-01-11 22:30 | PC.NURSE ---
Patient refused to take Norvasc this evening. He states it makes his heart hurt and he does not want to take it. He seems to be in a pleasant mood since waking up
[2022-01-12 06:00] VITALS: RESP 18
[2022-01-12] MEDS: escitalopram 10 mg Tablet 40 MG PO (09:04)
--- NOTE | 2022-01-12 10:18 | P.NPUHP_ITS ---
Providers/Chief Complaint Admitting Physician: Amor Juan MD Primary Care Provider: Ann-Marie Steven MD Chief Complaint: HALLUCINATIONS HPI NPU History of Present Illness Adama Thompson is a 36 year old male admitted to our emergency department with the following report: 36-year-old male has a history of methamphetamine abuse called police t onight because he had used meth and was hallucinating and very agitated please called EMS as patient was not making any sense.? He admits to meth use and thinks he may have used some bath salts.? Here he says he is feeling concrete in his veins he thinks there is blood all over the floor having severe hallucinations and very loose thoughts.? He is a little agitated but being cooperative at this time history is difficult at this time. Associated symptoms: Reports auditory hallucinations and visual hallucinations; Deny depression He was admitted to the neuropsychiatry unit for definitive treatment of these issues. He says that yesterday was all just a big Misunderstanding. he said his called the police 3 times because she wanted him in the hospital. He is not sure why. He does not know if she thought it was in his best interest or there is some other reason. He was angry when the police arrived the third time and acted badly and they put him in handcuffs which made things worse. He also said he was angry when he came to the emergency room. He said that he started saying things just to play games with them. He said his blood did feel like it was thick because he had not taken his medication yesterday. He does admit to using methamphetamine recently but does not think that had anything to do with it. He said that the medication that I prescribed last time, Lexapro 20 mg was working. His physician had prescribed Abilify to Boost the effect of the Lexapro he was not taking that regularly because it makes him sleepy all day. He said that it did not seem to be helping Lexapro better. He required 2 doses of IM Haldol and Benadryl and 4 doses of IM Ativan 2 mg yesterday. He says that he is fine now and ready to go home. Below is the discharge summary from the last admission for context. Discharge Diagnosis (1) Depression: ?Status:?Acute ?Qualifiers: ?Active/Remission status:?currently active??Depression Type:?major depressive disorder??Major depression episode severity:?severe??Major depression recurrence:?recurrent??Psychotic features:?without psychotic features? Qualified Code(s):?F33.2 - Major depressive disorder, recurrent severe without psychotic features (2) Marijuana dependence: ?Status:?Acute (3) Methamphetamine abuse: ?Status:?Acute Reason for Visit Reason for Visit:?? OD Trazadone 100MG\Prozac\Hydocodone? Brief History: History of Present Illness Adama Thompson is a 36 year old male who was admitted to the emergency department with the following report: General:?? Chief Complaint: Overdose Stated Complaint: OD Trazadone 100MG\Prozac\Hydocodone Time Seen by Provider: 10/23/21 01:18 Source: patient Mode of arrival: ambulatory Limitations: no limitations History of Present Illness:?? HPI Narrative: 36-year-old male states that he is arguing with his harriet became very upset and took multiple pills in an attempt to kill himself. States he took 7 100 mg trazodone pills states he also took a bottle of Prozac he states he believes it was more than 30 10 mg tablets. He states he took also 1 hydrocodone earlier in the day did not take any large amount of hydrocodone. He states he was just very upset and want to kill himself after the argument denies any worsening improving factors. He was admitted to the neuropsychiatry unit for definitive treatment of these issues.? He was a little difficult to interview this morning because he is still sedated from the trazodone that he took.? He says that he has been depressed recently.? He has been out of work for about 6 years.? He is not on disability.? He sits at home and does little or nothing.? He says he probably goes back and forth between the bed and the chair.? He does medical marijuana as much as he can afford to get.? He does methamphetamine about twice a week just to get himself moving so that he can do some of the things that he should be doing.? He says he cleans the house when he uses methamphetamine.? His complains about his methamphetamine use because sometimes he is irritable.? He denies that it causes him to have hallucinations or paranoia.? That he only drinks a few times per year.? He says that he sleeps well.? He sometimes has some decreased appetite but has not lost any weight.? His weight is stable.? He does have low self-esteem, low motivation and energy.? He does not remember if the Prozac and trazodone that he took previously helped.? He said it has been many years since he took them.? He has recently started smoking cigarettes and using drugs when he was about 13 years old.? He denies using oxygen at home that his oxygen level in the emergency room was in the upper 80s on room air at times.? It was not the 90s on room air after they gave him some oxygen. Hospital Course Hospital Course He slowly acclimated to the individual, group and milieu therapies provided.? He was started on Lexapro 10 mg daily.? He was in bed all day the first day but then was up and around more.? He said that he exaggerated how much he was in bed when he first talked with me.? He tolerated these doses and showed steady improvement during his stay. ? He was able to contract for safety outside hospital prior to discharge.? During the hospitalization, patient had routine laboratory studies which were within normal limits except for few outliers.? Additionally there was a general medical evaluation which was also within normal limits and revealed no new acute processes. Discharge Summary: At the time of discharge, lethality was denied and psychosis was resolving.? Mood and anxiety were well managed.? Patient endorsed a plan to follow-up with the aftercare recommendations of the treatment team.? Patient was evaluated and deemed to be absent credible lethality, and had achieved the maximum benefit from an inpatient hospitalization, so was discharged. Meds NPU Home Medications Medication Instructions Recorded Confirmed Last Taken Type testosterone cypionate 200 mg/mL 200 mg IM .EVERY OTHER WEEK #10 ml 10/10/21 01/12/22 Unknown Rx intramuscular oil amlodipine 5 mg tablet (Norvasc) 5 mg PO DAILY 01/11/22 01/11/22 Unknown History escitalopram oxalate 20 mg tablet 20 mg PO DAILY 01/11/22 01/11/22 Unknown History (Lexapro) amlodipine 5 mg-benazepril 10 mg 1 cap PO DAILY 01/12/22 01/12/22 Unknown History capsule (Lotrel) Allergies Allergy/AdvReac Type Severity Reaction Status Date / Time naproxen Allergy ALGY-Difficulty Verified 09/24/21 07:18 Breathing NSAIDS (Non-Steroidal Allergy ALGY-Anaphy Verified 09/24/21 07:18 Anti-Inflamma laxis zonisamide [From Zonegran] AdvReac ADR-Vomitin Verified 09/24/21 07:18 g PFSH NPU PFSH: Medical History (Updated 01/12/22 @ 10:34 by Amor Juan MD) Erectile dysfunction History of kidney stones Low testosterone in male Lower urinary tract symptoms OCD (obsessive compulsive disorder) Surgical History History of tonsillectomy and adenoidectomy Family History Father , at age 68 Alcoholic Mother Cancer BREAST CANCER Sister Cancer Other CAD (coronary artery disease) Diabetes Hypertension Social History Alcohol intake: unknown Adopted: No Caregiver/support person: No Marital status: Current occupational status: unemployed History of recent travel: No Mental Status Exam MSE Comments: This is a 36-year-old overweight male who appears approximately his stated age and is in no acute distress. He is pleasant and cooperative with the evaluation. He is dressed in hospital scrubs and poorly groomed. He was found in bed at 8:30 AM. His mattress was on the floor was between the bed and the wall. He said that worked better for his back. psychomotor activity is normal. Speech is at a regular rate and rhythm, normal volume, good articulation, not pressured. Alert, oriented X3 Attention and concentration appear to be normal. Memory is intact Mood is good.. Affect is euthymic. Thought process is logical and goal-directed. Thought content: Denies auditory and visual hallucinations. No delusions or paranoia are noted. No current suicidal ideation, and no homicidal ideation. Fund of knowledge is average. Insight and judgment appear to be very poor. Impulse control is very poor.. Vitals/I&O/Wt Last Vital Signs Temp 97.9 F 01/11/22 14:00 Pulse 90 04/10/22 14:00 Resp 18 01/12/22 06:00 BP 136/76 01/11/22 14:00 Pulse Ox 96 01/11/22 14:00 Weight last 48 hrs Weight 104.326 kg Data NPU : 01/11/22 04:14 01/11/22 04:14 A&P Assessment and plan (1) Drug-induced psychotic disorder: Status: Acute (2) Depression: Status: Acute Qualifiers: Depression Type: major depressive disorder Major depression recurrence: recurrent Active/Remission status: currently active Major depression episode s everity: severe Psychotic features: without psychotic features Qualified Code(s): F33.2 - Major depressive disorder, recurrent severe without psychotic features (3) Methamphetamine abuse: Status: Acute (4) Marijuana dependence: Status: Acute (5) Anxiety: Status: Acute Plan This is a 36-year old male with history of depression and anxiety who comes in intoxicated with methamphetamine and psychotic requiring 8 mg of IM Ativan yesterday Plan: 1. Continue current medication. Increase Lexapro to 40 mg daily 2. Continue every 15 minute checks for safety. 3. Encourage individual, group and milieu therapies. 4. Encourage sober living treatment after discharge at the highest level of care to which he is willing to commit. 5. We will monitor for safety for himself in the community prior to discharge. Involuntary Hold Information 96 Hour Hold: 96 Hour Involuntary Admission: Yes 96 Hour Hold Ending Date: 01/16/22 96 Hour Hold Ending Time: 03:26 Attestations NPU Medical Necessity Statement*: Inpatient hospitalization is medically necessary and the clinically appropriate intervention at this time. We will initiate medications and make changes as indicated. He will be in the hospital for over 2 midnights. 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
--- NOTE | 2022-01-12 15:31 | PC.SOCIAL ---
Patient did not attend group.
[2022-01-12 19:35] VITALS: RESP 18
[2022-01-12] MEDS: lisinopril 10 mg Tablet PO (22:01)
[2022-01-12] MEDS: amlodipine 5 mg Tablet PO (22:01)
[2022-01-13 06:00] VITALS: RESP 19
--- NOTE | 2022-01-13 08:40 | P.NPUDS_ITS ---
Diagnoses at Discharge Discharge Diagnosis (1) Drug-induced psychotic disorder: Status: Acute (2) Depression: Status: Acute Qualifiers: Depression Type: major depressive disorder Major depression recurrence: recurrent Active/Remission status: currently active Major depression episode severity: severe Psychotic features: without psychotic features Qualified Code(s): F33.2 - Major depressive disorder, recurrent severe without psychotic features (3) Methamphetamine abuse: Status: Acute (4) Marijuana dependence: Status: Acute (5) Anxiety: Status: Acute Reason for Visit Reason for Visit: HALLUCINATIONS Brief History: History of Present Illness Adama Thompson is a 36 year old male admitted to our emergency department with the following report: 36-year-old male has a history of methamphetamine abuse called police tonight because he had used meth and was hallucinating and very agitated please called EMS as patient was not making any sense.? He admits to meth use and thinks he may have used some bath salts.? Here he says he is feeling concrete in his veins he thinks there is blood all over the floor having severe hallucinations and very loose thoughts.? He is a little agitated but being cooperative at this time history is difficult at this time. Associated symptoms: Reports auditory hallucinations and visual hallucinations; Deny depression He was admitted to the neuropsychiatry unit for definitive treatment of these issues.? He says that yesterday was all just a big Misunderstanding. he said his called the police 3 times because she wanted him in the hospital.? He is not sure why.? He does not know if she thought it was in his best interest or there is some other reason.? He was angry when the police arrived the third time and acted badly and they put him in handcuffs which made things worse.? He also said he was angry when he came to the emergency room.? He said that he started saying things just to play games with them.? He said his blood did feel like it was thick because he had not taken his medication yesterday.? He does admit to using methamphetamine recently but does not think that had anything to do with it.? He said that the medication that I prescribed last time, Lexapro 20 mg was working.? His physician had prescribed Abilify to Boost the effect of the Lexapro he was not taking that regularly because it makes him sleepy all day.? He said that it did not seem to be helping Lexapro better.? He required 2 doses of IM Haldol and Benadryl and 4 doses of IM Ativan 2 mg yesterday.? He says that he is fine now and ready to go home.? Hospital Course Hospital Course He slowly acclimated to the individual, group and milieu therapies provided. He was continued on his outpatient medication except for Lexapro was increased to 40 mg, the target dose for anxiety. He tolerated these doses and showed steady improvement during his stay. He was able to contract for safety outside hospital prior to discharge. During the hospitalization, patient had routine laboratory studies which were within normal limits except for few outliers. Additionally there was a general medical evaluation which was also within normal limits and revealed no new acute processes. Discharge Summary: At the time of discharge, lethality was denied and psychosis was resolving. Mood and anxiety were well managed. Patient endorsed a plan to follow-up with the aftercare recommendations of the treatment team. Patient was evaluated and deemed to be absent credible lethality, and had achieved the maximum benefit from an inpatient hospitalization, so was discharged. Involuntary Hold Information 96 Hour Hold: 96 Hour Involuntary Admission: Yes 96 Hour Hold Ending Date: 01/16/22 96 Hour Hold Ending Time: 03:26 Mental Status Exam MSE Comments: This is a 36-year-old overweight male who appears approximately his stated age and is in no acute distress. He is pleasant and cooperative with the evaluation. He is dressed in hospital scrubs and poorly groomed. He was found in bed at 8:30 AM. His mattress was on the floor was between the bed and the wall. He said that worked better for his back. psychomotor activity is normal. Speech is at a regular rate and rhythm, normal volume, good articulation, not pressured. Alert, oriented X3 Attention and concentration appear to be normal. Memory is intact Mood is good.. Affect is euthymic. Thought process is logical and goal-directed. Thought content: Denies auditory and visual hallucinations. No delusions or paranoia are noted. No current suicidal ideation, and no homicidal ideation. Fund of knowledge is average. Insight and judgment appear to be poor. Impulse control is poor.. Cognition: Patient Appearance: Appropriate Level of Consciousness: Awake, Alert, Combative and Restless Patient Cognition Impaired: Yes Ability to Follow Directions: Poor Patient Orientation (long list): Person, Place, Time, Name and Age Comprehension Ability: Unable to Comprehend Hallucination Type: None Delusion Description: Not Present Thought Process: Appropriate Affect: Affect Description: Calm Behavior: Patient Behavior: Cooperative Speech Pattern: Clear Discharge Data Studies Completed and Pending: Pending at discharge Category Date Time Status Drug Screen, Urin e Stat Lab 01/11/22 03:08 Uncollected Laboratory Results WBC 15.3 10^3/uL (4.0 -10.0) H 01/11/22 04:14 RBC 5.54 10^6/uL (4.1 -5.3) H 01/11/22 04:14 Hgb 15.6 g/dL (11.7-1 6.6) 01/11/22 04:14 Hct 46.1 % (42.0-52.0 ) 01/11/22 04:14 MCV 83.2 fl (80-94) 01/11/22 04:14 MCH 28.2 pg (28.0-34. 0) 01/11/22 04:14 MCHC 33.8 g/dL (30.0-3 6.0) 01/11/22 04:14 RDW 13.0 % (12.1-15.1 ) 01/11/22 04:14 Plt Count 255 10^3/cmm (130 -400) 01/11/22 04:14 MPV 9.7 fL (7.4-10.4) 01/11/22 04:14 Neut % (Auto) 75.2 % 01/11/22 04:14 Lymph % (Auto) 14.8 % 01/11/22 04:14 [place] % (Auto) 8.9 % 01/11/22 04:14 Eos % (Auto) 0.5 % 01/11/22 04:14 Baso % (Auto) 0.3 % 01/11/22 04:14 Neut # (Auto) 11.47 10^3/uL (1. 8-7.7) H 01/11/22 04:14 Lymph # (Auto) 2.3 10^3/uL (0.8- 4.8) 01/11/22 04:14 [place] # (Auto) 1.4 10^3/uL (0.2- 0.9) H 01/11/22 04:14 Eos # (Auto) 0.1 10^3/uL (0.0- 0.8) 01/11/22 04:14 Baso # (Auto) 0.1 10^3/uL (0.0- 0.1) 01/11/22 04:14 Nucleated RBC % (a uto) 0 % 01/11/22 04:14 Nucleated RBCs # 0.0 /100WBC 01/11/22 04:14 Sodium 140 mmol/L (136-1 45) 01/11/22 04:14 Potassium 3.8 mmol/L (3.5-5 .1) 01/11/22 04:14 Chloride 105 mmol/L (98-10 7) 01/11/22 04:14 Carbon Dioxide 21 mmol/L (22-29) L 01/11/22 04:14 Anion Gap 17.8 (5-19) 01/11/22 04:14 BUN 17 mg/dL (6-20) 01/11/22 04:14 Creatinine 1.0 mg/dL (0.7-1. 2) 01/11/22 04:14 GFR Calculation 85.0 mL/min (90-1 30) L 01/11/22 04:14 Glucose 91 mg/dL (65-115) 01/11/22 04:14 Calculated Osmolal ity 291 mOsm/kg (285- 295) 01/11/22 04:14 Calcium 10.3 mg/dL (8.5-1 0.5) 01/11/22 04:14 Total Bilirubin 0.6 mg/dL (0.15-1 .2) 01/11/22 04:14 AST 17 U/L (0-40) 01/11/22 04:14 ALT 20 U/L (0-41) 01/11/22 04:14 Alkaline Phosphata se 96 IU/L (40-130) 01/11/22 04:14 Total Protein 7.3 g/dL (6.6-8.7 ) 01/11/22 04:14 Albumin 4.7 g/dL (3.5-5.2 ) 01/11/22 04:14 Globulin 2.6 g/dL (1.3-4.6 ) 01/11/22 04:14 Salicylates < 0.3 mg/dL (3-10 ) L 01/11/22 04:14 Acetaminophen < 5.0 ug/mL (10-3 0) L 01/11/22 04:14 Ethyl Alcohol < 10 mg/dL (0-10) 01/11/22 04:14 Vitals: Last Vital Signs Temp 97.9 F 01/11/22 14:00 Pulse 90 01/11/22 14:00 Resp 19 H 01/13/22 06:00 BP 136/76 01/11/22 14:00 Pulse Ox 96 01/11/22 14:00 Discharge Plan Discharge Patient Disposition: Home Condition: Stable Prescriptions: Continued testosterone cypionate 200 mg/mL oil 200 mg IM .EVERY OTHER WEEK Qty: 10 5RF Norvasc 5 mg Tablet 5 mg PO DAILY 0RF Lotrel 5-10 mg capsule 1 cap PO DAILY 0RF Changed Lexapro 20 mg Tablet 40 mg PO DAILY 30 Days Qty: 60 1RF Discharge Orders: Discharge Order (Routine); Ordered 01/13/22 Ordered By: Amor Juan Referrals: [facility] [Other] (Therapy) Ann-Marie Steven MD [Primary Care Provider] - Discharge Diet: Regular Discharge Activity: Resume usual activity Patient Instructions: Opioid Safety Discharge Attestations NPU Time Spent in Discharge Care*: less than 30 min Specific Discharge Activities: Specific discharge activities: educating patient, discussing with supportive employment case manager/social workers/dc planners, documenting/other paperwork and evaluating patient/reviewing data Coding Level of Care Code Acute g FW DC note Diagnoses Drug-induced psychotic disorder F19.959 Depression F33.2 Depression Type: major depressive disorder Major depression recurrence: recurrent Active/Remission status: currently active Major depression episode severity: severe Psychotic features: without psychotic features Methamphetamine abuse F15.10 Marijuana dependence F12.20 Anxiety F41.9
[2022-01-13] MEDS: diphenhydrAMINE 50 mg Capsule PO (08:56)
[2022-01-13] MEDS: escitalopram 10 mg Tablet 40 MG PO (08:56)
[2022-01-13 09:42] VITALS: RESP 19
== END 2022-01-13 09:55 | disposition home or self-care (01) | DRG 897 ==
LOC: ER 04:38 → NP 01-12 06:35
PROVIDERS: Admitting Provider Psychiatry & Neurology Psychiatry; Emergency Provider Emergency Medicine; PCP Internal Medicine; Visit Provider Psychiatry & Neurology Psychiatry
DX: F15.159 Other stimulant abuse with stimulant-induced psychotic disorder, unspecified (principal); F33.2 Major depressive disorder, recurrent severe without psychotic features; F15.10 Other stimulant abuse, uncomplicated; F12.20 Cannabis dependence, uncomplicated
CPT/HCPCS: 80053; 80307; 85025; 96361; 96372; 96374; 96375; 97165; 99285; J1200; J1630; J2060; J7030; Q0163

== ENCOUNTER 2022-01-28 17:00 | Inpatient (IN) | payer MEDICAID, SELFPAY ==
--- NOTE | 2022-01-28 17:04 | ED_ITS ---
HPI - General Adult General: Chief complaint: Psychiatric Symptoms Stated complaint: 96 HOUR HOLD Time Seen by Provider: 01/28/22 17:01 History of Present Illness: HPI: [36]yo patient w/ hx of depression BIBP under involuntary commitment for possible auditory hallucination suicidal ideation. On arrival, the patient is AAOx3 and cooperative with my evaluation. He tells me that he has been hearing voices to hurt himself. Patient says that he taking medicine compliantly but is not able to do with everything is going. Patient has significant increase in thoughts about hurting himself. No focal complaints of chest pain, shortness of breath, palpitations, N/V, focal GI/ complaints. Currently denies HI. Onset: acute on chronic Duration: ongoing Location: home Severity: severe Associated symptoms: Deny chest pain, dyspnea, nausea, rash, palpitations or vomiting Review of Systems Const: Denies: fever(s) or chills Eyes: Denies: change in vision ENMT: Reports: other (+L upper tooth pain); Denies: mouth pain Card: Denies: chest pain or palpitations Resp: Denies: dyspnea or non-productive cough GI: Denies: abdominal pain, nausea, vomiting or diarrhea : Denies: dysuria Musc: Denies: extremity pain Skin/Breast: Denies: rash or new lesions Neuro: Denies: weakness in extremities Psych: Reports: auditory hallucinations and suicidal ideation [place]/Lymph: Denies: easy bruising PFSH ED PFSH: Medical History Erectile dysfunction History of kidney stones Low testosterone in male Lower urinary tract symptoms OCD (obsessive compulsive disorder) Surgical History History of tonsillectomy and adenoidectomy Family History Father , at age 68 Alcoholic Mother Cancer BREAST CANCER Sister Cancer Other CAD (coronary artery disease) Diabetes Hypertension Social History Alcohol intake: unknown Adopted: No Caregiver/support person: No Marital status: Current occupational status: unemployed History of recent travel: No Physical Exam Const: COMMON NORMALS: alert HENMT: COMMON NORMALS: atraumatic HEAD & SCALP: atraumatic MOUTH: moist mucous membranes not abnormal OTHER: +L upper molar tenderness to palpation Eye: COMMON NORMALS: EOMs intact bilaterally and conjunctivae normal CONJUNCTIVA: Yes conjunctivae normal Neck/C-Spine: COMMON NORMALS: full ROM and supple Resp: COMMON NORMALS: normal respiratory effort and clear to auscultation bi laterally AUSCULTATION: clear to auscultation bilaterally Cardio: COMMON NORMALS: regular rate RATE: regular rate GI: COMMON NORMALS: Soft to palpation and non-tender PALPATION: Yes Soft to palpation Extremity: COMMON NORMALS: full ROM Neuro: SENSORIUM/ORIENTATION: Yes alert MOTOR EXAM: No Abnormal motor strength present and Other motor observations present (no focal motor deficits) Psych: COMMON NORMALS: speech normal SPEECH: Yes normal speech MOOD & AFFECT: Yes euthymic mood MDM - General Adult Medical Decision Making [36]yo patient w/ hx of depression/meth use presenting for SI and auditory hallucination under involunary commitment. HDS, exam within normal limit Thoughts are linear and organized, and the patient has no VH, or HI. Clinically the patient displays no overt toxidrome; they are well appearing, with low suspicion for toxic ingestion given history and exam. Symptoms unlikely 2/2 anemia, hypothyroidism, infection, or ICH. Workup: CBC, CMP, Lipase, salicylate/tylenol, UDS Lab findings: wnl. +amphetamine in the urine. He has a possible left upper molar infection for which she requests her antibiotics. Patient received first dose of Augmentin in the emergency room. Patient was started on antibiotics upon admission to [facility]. [8:00pm] On reassessment, labs and workup wnl. Patient is hemodynamically stable with no acute medical complaints. Case discussed with psychiatric provider Dr. Ann at [facility] psych inpatient with recommendation for admission Disposition: Psych Lab Data : 01/28/22 17:19 01/28/22 17:52 Laboratory Results WBC 12.0 10^3/uL (4.0-10.0) H 01/28/22 17:19 RBC 6.43 10^6/uL (4.1-5.3) H 01/28/22 17:19 Hgb 18.5 g/dL (11.7-16.6) H 01/28/22 17:19 Hct 56.2 % (42.0-52.0) H 01/28/22 17:19 MCV 87.4 fl (80-94) 01/28/22 17:19 MCH 28.8 pg (28.0-34.0) 01/28/22 17:19 MCHC 32.9 g/dL (30.0-36.0) 01/28/22 17:19 RDW 13.2 % (12.1-15.1) 01/28/22 17:19 Plt Count 353 10^3/cmm (130-400) 01/28/22 17:19 MPV 9.7 fL (7.4-10.4) 01/28/22 17:19 Neut % (Auto) 59.8 % 01/28/22 17:19 Lymph % (Auto) 28.9 % 01/28/22 17:19 Elliott % (Auto) 8.4 % 01/28/22 17:19 Eos % (Auto) 1.9 % 01/28/22 17:19 Baso % (Auto) 0.5 % 01/28/22 17:19 Neut # (Auto) 7.15 10^3/uL (1.8-7.7) 01/28/22 17:19 Lymph # (Auto) 3.5 10^3/uL (0.8-4.8) 01/28/22 17:19 Elliott # (Auto) 1.0 10^3/uL (0.2-0.9) H 01/28/22 17:19 Eos # (Auto) 0.2 10^3/uL (0.0-0.8) 01/28/22 17:19 Baso # (Auto) 0.1 10^3/uL (0.0-0.1) 01/28/22 17:19 Nucleated RBC % (auto) 0 % 01/28/22 17:19 Nucleated RBCs # 0.0 /100WBC 01/28/22 17:19 Sodium Cancelled 01/28/22 17:19 Potassium Cancelled 01/28/22 17:19 Chloride Cancelled 01/28/22 17:19 Carbon Dioxide Cancelled 01/28/22 17:19 Anion Gap Cancelled 01/28/22 17:19 BUN Cancelled 01/28/22 17:19 Creatinine Cancelled 01/28/22 17:19 GFR Calculation Cancelled 01/28/22 17:19 Glucose Cancelled 01/28/22 17:19 Calculated Osmolality Cancelled 01/28/22 17:19 Calcium Cancelled 01/28/22 17:19 Total Bilirubin Cancelled 01/28/22 17:19 AST Cancelled 01/28/22 17:19 ALT Cancelled 01/28/22 17:19 Alkaline Phosphatase Cancelled 01/28/22 17:19 Total Protein Cancelled 01/28/22 17:19 Albumin Cancelled 01/28/22 17:19 Globulin Cancelled 01/28/22 17:19 Lipase Cancelled 01/28/22 17:19 Salicylates Cancelled 01/28/22 17:19 Urine Opiates Screen Negative ng/mL (Negative) 01/28/22 17:37 Acetaminophen Cancelled 01/28/22 17:19 Ur Barbiturates Screen Negative ng/mL (Negative) 01/28/22 17:37 Ur Phencyclidine Scrn Negative ng/mL (Negative) 01/28/22 17:37 Ur Amphetamines Screen Positive ng/mL (Negative) H 01/28/22 17:37 U Benzodiazepines Scrn Negative ng/mL (Negative) 01/28/22 17:37 Urine Cocaine Screen Negative ng/mL (Negative) 01/28/22 17:37 U Marijuana (THC) Screen Negative ng/mL (Negative) 01/28/22 17:37 Discharge Plan Discharge Patient Disposition: Admitted As Inpatient Clinical Impression: Depression with suicidal ideation, Auditory hallucination Condition: Stable Coding Level of Care Code ED [employer] Fwd Exam Comprehensive
[2022-01-28] MEDS: amoxicillin-clav 875-125 mg Tablet 1 TAB PO (17:12)
[2022-01-28 17:15] VITALS: BMI 38.0
[2022-01-28 17:24] LABS: Basophils # 0.1 10^3/uL (0.0-0.1); Basophils % 0.5 %; Eosinophils # 0.2 10^3/uL (0.0-0.8); Eosinophils % 1.9 %; Hematocrit 56.2 % (42.0-52.0); Hemoglobin 18.5 g/dL (11.7-16.6); Lymphocytes # 3.5 10^3/uL (0.8-4.8); Lymphocytes % 28.9 %; Mean Corpuscular HGB Conc 32.9 g/dL (30.0-36.0); Mean Corpuscular Hemoglobin 28.8 pg (28.0-34.0); Mean Corpuscular Volume 87.4 fl (80-94); Mean Platelet Volume 9.7 fL (7.4-10.4); Monocytes % 8.4 %; Neutrophils # 7.15 10^3/uL (1.8-7.7); Neutrophils % 59.8 %; Nucleated Red Blood Cells % 0 %; Platelet Count 353 10^3/cmm (130-400); Red Blood Count 6.43 10^6/uL (4.1-5.3); Red Cell Distribution Width 13.2 % (12.1-15.1)
[2022-01-28 18:03] LABS: Amphetamines Screen Urine Positive (Negative); Barbiturates Screen Urine Negative (Negative); Benzodiazepines Screen Urine Negative (Negative); Cocaine Screen Urine Negative (Negative); Opiate Screen Urine Negative (Negative); PCP Screen Urine Negative (Negative); THC Screen Urine Negative (Negative)
[2022-01-28 18:22] LABS: Alanine Aminotransferase 24 U/L (0-41); Albumin Level 4.5 g/dL (3.5-5.2); Alkaline Phosphatase 97 IU/L (40-130); Anion Gap 17.2 (5-19); Aspartate Amino Transferase 12 U/L (0-40); Blood Urea Nitrogen 10 mg/dL (6-20); Calcium 10.1 mg/dL (8.5-10.5); Carbon Dioxide 26 mmol/L (22-29); Chloride 101 mmol/L (98-107); Globulin 3.5 g/dL (1.3-4.6); Glomerular Filtration Rate 128.3 mL/min (90-130); Glucose 110 mg/dL (65-115); Lipase 32 U/L (13-60); Osmolality Calculated 290 mOsm/kg (285-295); Potassium 4.2 mmol/L (3.5-5.1); Sodium 140 mmol/L (136-145); Total Bilirubin 0.2 mg/dL (0.15-1.2)
[2022-01-28 18:26] LABS: Acetaminophen < 5.0 ug/mL (10-30); Salicylate < 0.3 mg/dL (3-10)
[2022-01-28 18:48] VITALS: BP 149/107; PULSE 111; RESP 18; O2SAT 97
--- NOTE | 2022-01-28 19:15 | PC.NURSE ---
190 Assumed pt care from Denise VIERA
[2022-01-28 19:18] VITALS: BP 148/91; PULSE 112; RESP 18; O2SAT 96
[2022-01-28 19:46] VITALS: BP 126/98; PULSE 107; RESP 18; O2SAT 97
[2022-01-28 20:00] VITALS: BP 166/124; PULSE 109; TEMP 36.3; O2SAT 97
[2022-01-28] MEDS: nicotine 2 mg Gum BUCCAL (23:43)
[2022-01-29] MEDS: nicotine 2 mg Gum BUCCAL ×4 (03:19→15:39)
[2022-01-29 06:00] VITALS: BP 170/121; PULSE 81; RESP 18; TEMP 36.7; O2SAT 97
[2022-01-29] MEDS: AMLODIPINE BENAZEPRIL 1 EACH PO (06:35)
--- NOTE | 2022-01-29 08:41 | PC.NURSE ---
AM Assessment Laying down in bed for assessment. Speech is pressured and fast. Animated with speech. Appears anxious, restless and demanding he receive pain medication for pain in back bottom wisdom tooth. Refused to take Tylenol. Informed patient that this RN would notify doctor. Patient then demands that he receive Roxycodone 15 mg due to him being on that over a year ago for his neck pain. Denies SI/HI and AVH. States the voices have stopped due to the increased pain he is having. rates pain in tooth 9/10 at time. This RN offered Tylenol again and he refuses again. Once assessment was finished continued to lay down and rest. Reports he did not sleep at all last night.
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
--- NOTE | 2022-01-29 13:09 | PC.NURSE ---
Patient reported pain in back wisdom tooth and increased pain in right shoulder. Notified Dr. Ann this AM. Consult was ordered. Notified Dr. Mercedes of consult. Spoke with Dr. Mercedes. New orders received for Right shoulder pain 2 view, portable. Orders placed. Patient notified of all new orders. All questions answered and support voiced.
--- NOTE | 2022-01-29 13:52 | PC.NURSE ---
PT DECLINED MORNING MEDICATIONS, STATING THAT HE TOOK BP MEDS EARLIER AND DID NOT NEED THESE NOW. ALSO DECLINED LEXAPRO STATING THAT HE WANTED TO SPEAK WITH THE DR BEFORE TAKING THAT.
[2022-01-29 14:00] VITALS: BP 130/70; PULSE 74; RESP 18; TEMP 36.4; O2SAT 97
--- NOTE | 2022-01-29 14:17 | P.NPUHP_ITS ---
Providers/Chief Complaint Admitting Physician: Jovanni Ann MD Primary Care Provider: Ann-Marie Steven MD Chief Complaint: 96 HOUR HOLD HPI NPU History of Present Illness Adama Thompson is a 36 year old male who presented to the emergency department with the following report: Chief complaint: Psychiatric Symptoms Stated complaint: 96 HOUR HOLD Time Seen by Provider: 01/28/22 17:01 History of Present Illness: HPI: [36]yo patient w/ hx of depression BIBP under involuntary commitment for possible auditory hallucination suicidal ideation. On arrival, the patient is AAOx3 and cooperative with my evaluation. He tells me that he has been hearing voices to hurt himself. Patient says that he taking medicine compliantly but is not able to do with everything is going. Patient has significant increase in thoughts about hurting himself. No focal complaints of chest pain, shortness of breath, palpitations, N/V, focal GI/ complaints. Currently denies HI. Onset: acute on chronic Duration: ongoing Location: home Severity: severe Associated symptoms: Deny chest pain, dyspnea, nausea, rash, palpitations or vomiting. He was admitted to the neuropsychiatric unit for definitive treatment of those issues. He presents today having no explanation for why he is on a 96-hour hold. He reports that his family told that he misconstrued his cry for help. He reports that he continued not taking the Abilify because of how it made him feel but that the increase in Lexapro in his last visit to 40 mg belonging. We have already weather-related what to do. He started having hallucinations and reports. He very much underplays the impact of addiction on his presentation. We discussed the impact of stimulants on psychosis. We then discussed the risk benefits and alternatives of decreasing the Lexapro back to 20 mg daily and initiating Invega 6 mg p.o. every morning and he understood agreed to proceed as is documented in this note. He denied any other substantive changes in his situation since his last admission and discharge. He was already inquiring about when he might be discharged. We agreed to take it a day at a time. An excerpt of his last hospitalization is included below for context given there have been no significant changes since that discharge. Per his 01/12/2022 [facility] inpatient psychiatric evaluation: Adama Thompson is a 36 year old male admitted to our emergency department with the following report: 36-year-old male has a history of methamphetamine abuse called police tonight because he had used meth and was hallucinating and very agitated please called EMS as patient was not making any sense. He admits to meth use and thinks he may have used some bath salts. Here he says he is feeling concrete in his veins he thinks there is blood all over the floor having severe hallucinations and very loose thoughts. He is a little agitated but being cooperative at this time history is difficult at this time. Associated symptoms: Reports auditory hallucinations and visual hallucinations; Deny depression He was admitted to the neuropsychiatry unit for definitive treatment of these issues. He says that yesterday was all just a big Misunderstanding. he said his called the police 3 times because she wanted him in the hospital. He is not sure why. He does not know if she thought it was in his best interest or there is some other reason. He was angry when the police arrived the third time and acted badly and they put him in handcuffs which made things worse. He also said he was angry when he came to the emergency room. He said that he started saying things just to play games with them. He said his blood did feel like it was thick because he had not taken his medication yesterday. He does admit to using methamphetamine recently but does not think that had anything to do with it. He said that the medication that I prescribed last time, Lexapro 20 mg was working. His physician had prescribed Abilify to Boost the effect of the Lexapro he was not taking that regularly because it makes him sleepy all day. He said that it did not seem to be helping Lexapro better. He required 2 doses of IM Haldol and Benadryl and 4 doses of IM Ativan 2 mg yesterday. He says that he is fine now and ready to go home. Below is the discharge summary from the last admission for context. Discharge Diagnosis (1) Depression: Status: Acute Qualifiers: Active/Remission status: currently active Depression Type: major depressive disorder Major depression episode severity: severe Major depression recurrence: recurrent Psychotic features: without psychotic features Qualified Code(s): F33.2 - Major depressive disorder, recurrent severe without psychotic features (2) Marijuana dependence: Status: Acute (3) Methamphetamine abuse: Status: Acute Reason for Visit Reason for Visit: OD Trazadone 100MG\Prozac\Hydocodone Brief History: History of Present Illness Adama Thompson is a 36 year old male who was admitted to the emergency department with the following report: General: Chief Complaint: Overdose Stated Complaint: OD Trazadone 100MGProzacHydocodone Time Seen by Provider: 10/23/21 01:18 Source: patient Mode of arrival: ambulatory Limitations: no limitations History of Present Illness: HPI Narrative: 36-year-old male states that he is arguing with his harriet became very upset and took multiple pills in an attempt to kill himself. States he took 7 100 mg trazodone pills states he also took a bottle of Prozac he states he believes it was more than 30 10 mg tablets. He states he took also 1 hydrocodone earlier in the day did not take any large amount of hydrocodone. He states he was just very upset and want to kill himself after the argument denies any worsening improving factors. He was admitted to the neuropsychiatry unit for definitive treatment of these issues. He was a little difficult to interview this morning because he is still sedated from the trazodone that he took. He says that he has been depressed recently. He has been out of work for about 6 years. He is not on disability. He sits at home and does little or nothing. He says he probably goes back and forth between the bed and the chair. He does medical marijuana as much as he can afford to get. He does methamphetamine about twice a week just to get himself moving so that he can do some of the things that he should be doing. He says he cleans the house when he uses methamphetamine. His complains a bout his methamphetamine use because sometimes he is irritable. He denies that it causes him to have hallucinations or paranoia. That he only drinks a few times per year. He says that he sleeps well. He sometimes has some decreased appetite but has not lost any weight. His weight is stable. He does have low self-esteem, low motivation and energy. He does not remember if the Prozac and trazodone that he took previously helped. He said it has been many years since he took them. He has recently started smoking cigarettes and using drugs when he was about 13 years old. He denies using oxygen at home that his oxygen level in the emergency room was in the upper 80s on room air at times. It was not the 90s on room air after they gave him some oxygen. Hospital Course Hospital Course He slowly acclimated to the individual, group and milieu therapies provided. He was started on Lexapro 10 mg daily. He was in bed all day the first day but then was up and around more. He said that he exaggerated how much he was in bed when he first talked with me. He tolerated these doses and showed steady improvement during his stay. He was able to contract for safety outside hospital prior to discharge. During the hospitalization, patient had routine laboratory studies which were within normal limits except for few outliers. Additionally there was a general medical evaluation which was also within normal limits and revealed no new acute processes. Discharge Summary: At the time of discharge, lethality was denied and psychosis was resolving. Mood and anxiety were well managed. Patient endorsed a plan to follow-up with the aftercare recommendations of the treatment team. Patient was evaluated and deemed to be absent credible lethality, and had achieved the maximum benefit from an inpatient hospitalization, so was discharged. Meds NPU Home Medications Medication Instructions Recorded Confirmed Last Taken Type testosterone cypionate 200 mg/mL 200 mg IM .EVERY OTHER WEEK #10 ml 10/10/21 01/28/22 01/19/22 Rx intramuscular oil amlodipine 5 mg-benazepril 10 mg 1 cap PO DAILY 01/12/22 01/28/22 01/28/22 History capsule (Lotrel) escitalopram oxalate 20 mg tablet 40 mg PO DAILY 30 Days #60 tab 01/13/22 01/28/22 01/28/22 Rx (Lexapro) Allergies Allergy/AdvReac Type Severity Reaction Status Date / Time naproxen Allergy ALGY-Difficulty Verified 09/24/21 07:18 Breathing NSAIDS (Non-Steroidal Allergy ALGY-Anaphy Verified 09/24/21 07:18 Anti-Inflamma laxis zonisamide [From Zonegran] AdvReac ADR-Vomitin Verified 09/24/21 07:18 g PFSH NPU PFSH: Medical History Erectile dysfunction History of kidney stones Low testosterone in male Lower urinary tract symptoms OCD (obsessive compulsive disorder) Surgical History History of tonsillectomy and adenoidectomy Family History Father , at age 68 Alcoholic Mother Cancer BREAST CANCER Sister Cancer Other CAD (coronary artery disease) Diabetes Hypertension Social History Alcohol intake: unknown Adopted: No Caregiver/support person: No Marital status: Current occupational status: unemployed History of recent travel: No Mental Status Exam MSE Comments: This is an obese white male in hospital scrubs with adequate grooming and eye contact with a significant jackson. No abnormal movements except for mild psychomotor agitation. Cooperative with exam in mild distress. Speech was normal rate and volume. Mood described as okay but was feeling bad yesterday, affect congruent. Thought process organized. Thought contact: patient denies suicidal or homicidal ideation, there were no delusions reported but some paranoia and guardedness possible grandiosity, patient endorsed auditory but denied visual hallucinations. Attention and concentration appeared intact and memory appeared reliable but none were formally tested. Patient is alert and oriented times three. Insight and judgment appear limited versus impaired and impulse control appears limited versus impaired Vitals/I&O/Wt Last Vital Signs Temp 97.6 F 01/29/22 14:00 Pulse 74 01/29/22 14:00 Resp 18 01/29/22 14:00 BP 130/70 01/29/22 14:00 Pulse Ox 97 01/29/22 14:00 Weight last 48 hrs Weight 127.006 kg Data NPU : 01/28/22 17:19 01/28/22 17:52 A&P Assessment and plan (1) Depression with suicidal ideation: Status: Acute (2) Auditory hallucination: Status: Acute (3) Drug-induced psychotic disorder: Status: Acute (4) Methamphetamine abuse: Status: Acute (5) Anxiety: Status: Acute Plan This is a 36-year old male with history of depression and anxiety who comes in intoxicated with methamphetamine and psychotic requiring 8 mg of IM Ativan yesterday Plan: 1.? Continue current medication.? Continue Lexapro but at 20 mg p.o. daily and Invega 6 mg p.o. daily. 2.? Continue every 15 minute checks for safety. 3.? Encourage individual, group and milieu therapies. 4.? Encourage sober living treatment after discharge at the highest level of care to which he is willing to commit. 5.? We will evaluate for safety given 96-hour hold obtaining collateral information Involuntary Hold Information 96 Hour Hold: 96 Hour Involuntary Admission: Yes 96 Hour Hold Ending Date: 02/03/23 96 Hour Hold Ending Time: 18:05 Attestations NPU Medical Necessity Statement*: Inpatient hospitalization is medically necessary and the clinically appropriate intervention at this time. We will monitor medication to make changes as indicated. Patient will be in the hospital for over two midnights. Likely length of stay 3 to 5 days. Coding Level of Care Code Acute [employer] for [employer] Diagnoses Depression with suicidal ideation F32.A; R45.851 Auditory hallucination R44.0 Drug-induced psychotic disorder F19.959 Methamphetamine abuse F15.10 Anxiety F41.9
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
--- NOTE | 2022-01-29 17:36 | PC.NURSE ---
Dr. Mercedes here to see patient at approximately 1710. New orders received for [place] 5/325mg Q 8 hours PRN max dose of [address] scan for right shoulder was ordered by doctor. Tylenol 1000 mg was ordered then discontinued due to patient refusing tylenol. Patient informed of all new orders. Al questions answered and support voiced. Awaiting CT.
[2022-01-29] MEDS: HYDROcodone-acetaminophen 5-325 mg Tablet 1 TAB PO (17:41)
--- NOTE | 2022-01-29 17:46 | PC.NURSE ---
PRN Meds Hydrocodone 5/325 mg given as ordered for pain 9/10 in right shoulder and teeth.
[2022-01-29] MEDS: escitalopram 10 mg Tablet 20 MG PO (18:04)
[2022-01-29] MEDS: paliperidone ER 6 mg Tablet PO (18:04)
--- NOTE | 2022-01-29 18:47 | PC.NURSE ---
Pain decreased to 4/10. States it has improved.
[2022-01-29] MEDS: amoxicillin 500 mg Capsule PO (20:51)
[2022-01-29 21:43] VITALS: BP 142/73; PULSE 71; RESP 18; TEMP 36.9
[2022-01-30] MEDS: HYDROcodone-acetaminophen 5-325 mg Tablet 1 TAB PO ×2 (01:21→11:02)
[2022-01-30 06:00] VITALS: BP 124/78; PULSE 70; RESP 18; TEMP 36.6; O2SAT 96
[2022-01-30] MEDS: AMLODIPINE BENAZEPRIL 1 EACH PO (06:08)
[2022-01-30] MEDS: nicotine 2 mg Gum BUCCAL ×4 (07:16→21:00)
[2022-01-30] MEDS: lidocaine 5% Patch 1 PATCH TOPICAL ×2 (10:54→22:47)
[2022-01-30] MEDS: amoxicillin 500 mg Capsule PO ×3 (10:55→21:00)
[2022-01-30] MEDS: paliperidone ER 6 mg Tablet PO (10:55)
[2022-01-30] MEDS: escitalopram 10 mg Tablet 20 MG PO (10:55)
--- NOTE | 2022-01-30 13:13 | PC.NURSE ---
This RN spoke to Sonia in financial services who is taking call for centralized scheduling. Orders given to her per written order for MR right shoulder without contrast. Centralized scheduling will call patient with appointment time.
[2022-01-30 14:00] VITALS: BP 124/70; PULSE 80; RESP 20; TEMP 36.6; O2SAT 96
[2022-01-30 20:13] VITALS: BP 141/91; PULSE 87; RESP 18; TEMP 36.8; O2SAT 95
[2022-01-31 05:50] VITALS: BP 141/91; PULSE 87; RESP 18; TEMP 36.8; O2SAT 95
[2022-01-31 06:24] VITALS: BP 129/79; PULSE 67; RESP 19; TEMP 36.6; O2SAT 96
[2022-01-31] MEDS: amoxicillin 500 mg Capsule PO ×2 (09:43→16:03)
[2022-01-31] MEDS: paliperidone ER 6 mg Tablet PO (09:44)
[2022-01-31] MEDS: escitalopram 10 mg Tablet 20 MG PO (09:44)
[2022-01-31] MEDS: lidocaine 5% Patch 1 PATCH TOPICAL (09:47)
[2022-01-31] MEDS: AMLODIPINE BENAZEPRIL 1 EACH PO (09:53)
[2022-01-31] MEDS: nicotine 2 mg Gum BUCCAL ×3 (09:54→16:03)
--- NOTE | 2022-01-31 15:52 | P.NPUDS_ITS ---
Diagnoses at Discharge Discharge Diagnosis (1) Depression with suicidal ideation: Status: Resolved (2) Auditory hallucination: Status: Resolved (3) Drug-induced psychotic disorder: Status: Acute (4) Methamphetamine abuse: Status: Acute (5) Anxiety: Status: Acute Reason for Visit Reason for Visit: 96 HOUR HOLD Brief History: History of Present Illness Adama Thompson is a 36 year old male who presented to the emergency department with the following report: Chief complaint: Psychiatric Symptoms Stated complaint: 96 HOUR HOLD Time Seen by Provider: 01/28/22 17:01 History of Present Illness:?? HPI: [36]yo patient w/ hx of depression BIBP under involuntary commitment for possible auditory hallucination suicidal ideation. On arrival, the patient is AAOx3 and cooperative with my evaluation.? He tells me that he has been hearing voices to hurt himself.? Patient says that he taking medicine compliantly but is not able to do with everything is going.? Patient has significant increase in thoughts about hurting himself.? No focal complaints of chest pain, shortness of breath, palpitations, N/V, focal GI/ complaints. Currently denies HI. Onset: acute on chronic Duration: ongoing Location: home Severity: severe Associated symptoms: Deny chest pain, dyspnea, nausea, rash, palpitations or vomiting. He was admitted to the neuropsychiatric unit for definitive treatment of those issues.? He presents today having no explanation for why he is on a 96-hour hold.? He reports that his family told that he misconstrued his cry for help.? He reports that he continued not taking the Abilify because of how it made him feel but that the increase in Lexapro in his last visit to 40 mg belonging.? We have already weather-related what to do.? He started having hallucinations and reports.? He very much underplays the impact of addiction on his presentation.? We discussed the impact of stimulants on psychosis.? We then discussed the risk benefits and alternatives of decreasing the Lexapro back to 20 mg daily and initiating Invega 6 mg p.o. every morning and he understood agreed to proceed as is documented in this note.? He denied any other substantive changes in his situation since his last admission and discharge.? He was already inquiring about when he might be discharged.? We agreed to take it a day at a time.? An excerpt of his last hospitalization is included below for context given there have been no significant changes since that discharge. Per his 01/12/2022 [facility] inpatient psychiatric evaluation: Adama Thompson is a 36 year old male admitted to our emergency department with the following report: 36-year-old male has a history of methamphetamine abuse called police tonight because he had used meth and was hallucinating and very agitated please called EMS as patient was not making any sense.? He admits to meth use and thinks he may have used some bath salts.? Here he says he is feeling concrete in his veins he thinks there is blood all over the floor having severe hallucinations and very loose thoughts.? He is a little agitated but being cooperative at this time history is difficult at this time. Associated symptoms: Reports auditory hallucinations and visual hallucinations; Deny depression He was admitted to the neuropsychiatry unit for definitive treatment of these issues.? He says that yesterday was all just a big Misunderstanding. he said his called the police 3 times because she wanted him in the hospital.? He is not sure why.? He does not know if she thought it was in his best interest or there is some other reason.? He was angry when the police arrived the third time and acted badly and they put him in handcuffs which made things worse.? He also said he was angry when he came to the emergency room.? He said that he started saying things just to play games with them.? He said his blood did feel like it was thick because he had not taken his medication yesterday.? He does admit to using methamphetamine recently but does not think that had anything to do with it.? He said that the medication that I prescribed last time, Lexapro 20 mg was working.? His physician had prescribed Abilify to Boost the effect of the Lexapro he was not taking that regularly because it makes him sleepy all day.? He said that it did not seem to be helping Lexapro better.? He required 2 doses of IM Haldol and Benadryl and 4 doses of IM Ativan 2 mg yesterday.? He says that he is fine now and ready to go home.? Below is the discharge summary from the last admission for context. Discharge Diagnosis (1) Depression: ? ? ? Status: Acute ? ? ? Qualifiers: ? Active/Remission status: currently active? Depression Type: major depressive disorder? Major depression episode severity: severe? Major depression recurrence: recurrent? Psychotic features: without psychotic features? Qualified Code(s): F33.2 - Major depressive disorder, recurrent severe without psychotic features (2) Marijuana dependence: ? ? ? Status: Acute (3) Methamphetamine abuse: ? ? ? Status: Acute Reason for Visit Reason for Visit: ?? OD Trazadone 100MG\Prozac\Hydocodone? Brief History: History of Present Illness Adama Thompson is a 36 year old male who was admitted to the emergency department with the following report: General:? Chief Complaint: Overdose Stated Complaint: OD Trazadone 100MGProzacHydocodone Time Seen by Provider: 10/23/21 01:18 Source: patient Mode of arrival: ambulatory Limitations: no limitations History of Present Illness:? HPI Narrative: 36-year-old male states that he is arguing with his harriet became very upset and took multiple pills in an attempt to kill himself. States he took 7 100 mg trazodone pills states he also took a bottle of Prozac he states he believes it was more than 30 10 mg tablets. He states he took also 1 hydrocodone earlier in the day did not take any large amount of hydrocodone. He states he was just very upset and want to kill himself after the argument denies any worsening improving factors. He was admitted to the neuropsychiatry unit for definitive treatment of these issues.? He was a little difficult to interview this morning because he is still sedated from the trazodone that he took.? He says that he has been depressed re cently.? He has been out of work for about 6 years.? He is not on disability.? He sits at home and does little or nothing.? He says he probably goes back and forth between the bed and the chair.? He does medical marijuana as much as he can afford to get.? He does methamphetamine about twice a week just to get himself moving so that he can do some of the things that he should be doing.? He says he cleans the house when he uses methamphetamine.? His complains about his methamphetamine use because sometimes he is irritable.? He denies that it causes him to have hallucinations or paranoia.? That he only drinks a few times per year.? He says that he sleeps well.? He sometimes has some decreased appetite but has not lost any weight.? His weight is stable.? He does have low self-esteem, low motivation and energy.? He does not remember if the Prozac and trazodone that he took previously helped.? He said it has been many years since he took them.? He has recently started smoking cigarettes and using drugs when he was about 13 years old.? He denies using oxygen at home that his oxygen level in the emergency room was in the upper 80s on room air at times.? It was not the 90s on room air after they gave him some oxygen. Hospital Course Hospital Course He slowly acclimated to the individual, group and milieu therapies provided.? He was started on Lexapro 10 mg daily.? He was in bed all day the first day but then was up and around more.? He said that he exaggerated how much he was in bed when he first talked with me.? He tolerated these doses and showed steady improvement during his stay. ? He was able to contract for safety outside hospital prior to discharge.? During the hospitalization, patient had routine laboratory studies which were within normal limits except for few outliers.? Additionally there was a general medical evaluation which was also within normal limits and revealed no new acute processes. Discharge Summary: At the time of discharge, lethality was denied and psychosis was resolving.? Mood and anxiety were well managed.? Patient endorsed a plan to follow-up with the aftercare recommendations of the treatment team.? Patient was evaluated and deemed to be absent credible lethality, and had achieved the maximum benefit from an inpatient hospitalization, so was discharged. Hospital Course Hospital Course He slowly acclimated to the individual, group and milieu therapies provided. He reports that he stopped his Abilify because of how it made him feel and also there was an increase in his Lexapro that seemed overwhelming. From 20 to 40 mg. We reduced the Lexapro back to 20 mg. We initiated Invega 6 mg p.o. daily and he had a positive response. He continued to have limited insight into the impact of his drug use on psychosis. He did have significant improvement and was able to contract for safety outside of the hospital prior to discharge. During the hospitalization, patient had routine laboratory studies which were within normal limits except for few outliers. Additionally there was a general medical evaluation which was also within normal limits and revealed no new acute processes. Discharge Summary: At the time of discharge, lethality was denied and psychosis was resolving. Mood and anxiety were well managed. Patient endorsed a plan to avoid all drugs of abuse and follow-up with the aftercare recommendations of the treatment team. Patient was evaluated and deemed to be absent credible lethality, and had achieved the maximum benefit from an inpatient hospitalization, so was discharged. Involuntary Hold Information 96 Hour Hold: 96 Hour Involuntary Admission: Yes 96 Hour Hold Ending Date: 02/03/23 96 Hour Hold Ending Time: 18:05 Mental Status Exam MSE Comments: This is an obese white male in hospital scrubs with adequate grooming and eye contact with a significant jackson.? No abnormal movements. Cooperative with exam in no acute distress. Speech was normal rate and volume. Mood described as much better today, affect congruent. Thought process organized. Thought contact: patient denies suicidal or homicidal ideation, there were no delusions reported but some paranoia and guardedness/possible grandiosity that is improving/decreasing, patient did not report auditory or visual hallucinations. Attention and concentration appeared intact and memory appeared reliable but none were formally tested. Patient is alert and oriented times three. Insight and judgment appear limited, but improving and impulse control appears limited. Discharge Data Studies Completed and Pending: Completed Studies During Hospitalization Category Date Time Status XR shoulder RT mi n 2V* [id number] Routin e Exams 01/29/22 13:05 Completed Radiology Impressions Shoulder X-Ray 01/29/22 13:05 IMPRESSION: No acute findings. Laboratory Results WBC 12.0 10^3/uL (4.0 -10.0) H 01/28/22 17:19 RBC 6.43 10^6/uL (4.1 -5.3) H 01/28/22 17:19 Hgb 18.5 g/dL (11.7-1 6.6) H 01/28/22 17:19 Hct 56.2 % (42.0-52.0 ) H 01/28/22 17:19 MCV 87.4 fl (80-94) 01/28/22 17:19 MCH 28.8 pg (28.0-34. 0) 01/28/22 17:19 MCHC 32.9 g/dL (30.0-3 6.0) 01/28/22 17:19 RDW 13.2 % (12.1-15.1 ) 01/28/22 17:19 Plt Count 353 10^3/cmm (130 -400) 01/28/22 17:19 MPV 9.7 fL (7.4-10.4) 01/28/22 17:19 Neut % (Auto) 59.8 % 01/28/22 17:19 Lymph % (Auto) 28.9 % 01/28/22 17:19 Potter % (Auto) 8.4 % 01/28/22 17:19 Eos % (Auto) 1.9 % 01/28/22 17:19 Baso % (Auto) 0.5 % 01/28/22 17:19 Neut # (Auto) 7.15 10^3/uL (1.8 -7.7) 01/28/22 17:19 Lymph # (Auto) 3.5 10^3/uL (0.8- 4.8) 01/28/22 17:19 Potter # (Auto) 1.0 10^3/uL (0.2- 0.9) H 01/28/22 17:19 Eos # (Auto) 0.2 10^3/uL (0.0- 0.8) 01/28/22 17:19 Baso # (Auto) 0.1 10^3/uL (0.0- 0.1) 01/28/22 17:19 Nucleated RBC % (a uto) 0 % 01/28/22 17:19 Nucleated RBCs # 0.0 /100WBC 01/28/22 17:19 Sodium 140 mmol/L (136-1 45) 01/28/22 17:52 Potassium 4.2 mmol/L (3.5-5 .1) 01/28/22 17:52 Chloride 101 mmol/L (98-10 7) 01/28/22 17:52 Carbon Dioxide 26 mmol/L (22-29) 01/28/22 17:52 Anion Gap 17.2 (5-19) 01/28/22 17:52 BUN 10 mg/dL (6-20) 01/28/22 17:52 Creatinine 0.7 mg/dL (0.7-1. 2) 01/28/22 17:52 GFR Calculation 128.3 mL/min (90- 130) 01/28/22 17:52 Glucose 110 mg/dL (65-115 ) 01/28/22 17:52 Calculated Osmolal ity 290 mOsm/kg (285- 295) 01/28/22 17:52 Calcium 10.1 mg/dL (8.5-1 0.5) 01/28/22 17:52 Total Bilirubin 0.2 mg/dL (0.15-1 .2) 01/28/22 17:52 AST 12 U/L (0-40) 01/28/22 17:52 ALT 24 U/L (0-41) 01/28/22 17:52 Alkaline Phosphata se 97 IU/L (40-130) 01/28/22 17:52 Total Protein 8.0 g/dL (6.6-8.7 ) 01/28/22 17:52 Albumin 4.5 g/dL (3.5-5.2 ) 01/28/22 17:52 Globulin 3.5 g/dL (1.3-4.6 ) 01/28/22 17:52 Lipase 32 U/L (13-60) 01/28/22 17:52 Salicylates < 0.3 mg/dL (3-10 ) L 01/28/22 17:52 Urine Opiates Scre en Negative ng/mL (N egative) 01/28/22 17:37 Acetaminophen < 5.0 ug/mL (10-3 0) L 01/28/22 17:52 Ur Barbiturates Sc reen Negative ng/mL (N egative) 01/28/22 17:37 Ur Phencyclidine S crn Negative ng/mL (N egative) 01/28/22 17:37 Ur Amphetamines Sc reen Positive ng/mL (N egative) H 01/28/22 17:37 U Benzodiazepines Scrn Negative ng/mL (N egative) 01/28/22 17:37 Urine Cocaine Scre en Negative ng/mL (N egative) 01/28/22 17:37 U Marijuana (THC) Screen Negative ng/mL (N egative) 01/28/22 17:37 Vitals: Last Vital Signs Temp 97.8 F 01/31/22 06:24 Pulse 67 01/31/22 06:24 Resp 19 H 01/31/22 06:24 BP 129/79 01/31/22 06:24 Pulse Ox 96 01/31/22 06:24 Discharge Plan Discharge Patient Disposition: Home Condition: Stable Prescriptions: New paliperidone 6 mg Tablet Extended Release 24hr 6 mg PO DAILY 30 Days Qty: 30 1RF escitalopram oxalate 10 mg Tablet 20 mg PO DAILY 30 Days Qty: 30 1RF Continued testosterone cypionate 200 mg/mL oil 200 mg IM .EVERY OTHER WEEK Qty: 10 5RF Rx Instructions: Due on Wednesday every other week amlodipine-benazepril [Lotrel] 5-10 mg capsule 1 cap PO DAILY 0RF Discontinued escitalopram oxalate [Lexapro] 20 mg Tablet 40 mg PO DAILY 30 Days Qty: 60 1RF Discharge Orders: Discharge Order (Routine); Ordered 01/31/22 Ordered By: Jovanni Ann Referrals: [facility] [Other] - 02/06/22 10:00 am (Apt with Ryan Rosenberg - Clinical [employer] at 10:00 am followed by primary care with Tom JORDAN at 11:15 am. ) Ann-Marie Steven MD [Primary Care Provider] - 02/06/22 11:15 am (Appointment will be with with Tom JORDAN.) Discharge Diet: Regular Discharge Activity: Resume usual activity Patient Instructions: Amoxicillin (By mouth), Escitalopram (By mouth), Paliperidone (By mouth) (Invega), Hypertension, Methamphetamine Abuse, Dental Abscess (GEN), Depression (DC), Suicide Prevention (DC), Opioid Safety Activity Restrictions/Additional Instructions: as tolerated Discharge Attestations NPU Time Spent in Discharge Care*: less than 30 min Specific Discharge Activities: Specific discharge activities: educating patient, discussing with outsole caser/social workers/dc planners, documenting/other paperwork and evaluating patient/reviewing data Coding Level of Care Code Acute Chg FW DC note Diagnoses Depression with suicidal ideation F32.A; R45.851 Auditory hallucination R44.0 Drug-induced psychotic disorder F19.959 Methamphetamine abuse F15.10 Anxiety F41.9
[2022-01-31 15:57] VITALS: BP 129/79; PULSE 67; RESP 19; TEMP 36.6; O2SAT 96
--- NOTE | 2022-01-31 16:19 | PC.NURSE ---
DISCHARGE NOTE DISCHARGE TEACHING COMPLETED. REVIEWED ALL APPOINTMENTS, EDUCATION ON ALL NEW MEDICATIONS COMPLETED. VERBALIZES UNDERSTANDING. VSS. DENIES PAIN. DENIES SI/HI AND AVH AT THIS TIME. IS PICKING PATIENT UP. ALL QUESTIONS ANSWERED AND SUPPORT VOICED.
== END 2022-01-31 16:15 | disposition home or self-care (01) | DRG 881 ==
LOC: ER 18:29 → NP 01-29 06:07
PROVIDERS: Admitting Provider Psychiatry & Neurology Psychiatry; Emergency Provider Emergency Medicine; PCP Internal Medicine; Visit Provider Psychiatry & Neurology Psychiatry
DX: F32.A Depression, unspecified (principal); F19.951 Other psychoactive substance use, unspecified with psychoactive substance-induced psychotic disorder with hallucinations; R45.851 Suicidal ideations; F42.9 Obsessive-compulsive disorder, unspecified; F12.20 Cannabis dependence, uncomplicated; F15.10 Other stimulant abuse, uncomplicated; F41.9 Anxiety disorder, unspecified; I10 Essential (primary) hypertension; E29.1 Testicular hypofunction; K04.7 Periapical abscess without sinus; M25.511 Pain in right shoulder
CPT/HCPCS: 36415; 73030; 80053; 80306; 80307; 83690; 85025; 97165; 99285

== ENCOUNTER 2022-02-12 06:30 | Emergency (ER) | payer OTHER, MEDICAID, SELFPAY ==
[2022-02-12 06:38] VITALS: BP 144/103; PULSE 93; RESP 20; TEMP 36.5; O2SAT 93; BMI 38.0
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
[2022-02-12 06:54] VITALS: BP 149/85; PULSE 94; RESP 18; O2SAT 93
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
[2022-02-12 07:00] VITALS: RESP 18; O2SAT 95
[2022-02-12] MEDS: morphine 4 mg/mL SDV 1 mL IM (07:00)
--- NOTE | 2022-02-12 07:07 | PC.NURSE ---
Report received from AYLIN Hall. Pt en-route to radiology. Care assumed.
[2022-02-12 08:04] VITALS: BP 136/75; PULSE 81; RESP 16; O2SAT 93
== END 2022-02-12 08:05 | disposition home or self-care (01) ==
PROVIDERS: Emergency Provider Emergency Medicine; PCP Internal Medicine
DX: S00.91XA Abrasion of unspecified part of head, initial encounter (principal); S20.312A Abrasion of left front wall of thorax, initial encounter; V29.9XXA Motorcycle rider (driver) (passenger) injured in unspecified traffic accident, initial encounter
CPT/HCPCS: 70450; 71250; 72125; 73562; 74176; 96372; 99283; J2270

== ENCOUNTER → 2022-02-24 12:05 | Outpatient (BNVA) | payer MEDICAID, SELFPAY | PROVIDERS: PCP Internal Medicine; Visit Provider Specialist | DX: G43.711 Chronic migraine without aura, intractable, with status migrainosus (principal); F15.11 Other stimulant abuse, in remission | CPT/HCPCS: 99204 ==

== ENCOUNTER → 2022-03-03 14:30 | Outpatient (BNVA) | payer OTHER, MEDICAID, SELFPAY | PROVIDERS: PCP Internal Medicine; Referring Provider Nurse Practitioner Family; Visit Provider Nurse Practitioner Family | DX: S46.001A Unspecified injury of muscle(s) and tendon(s) of the rotator cuff of right shoulder, initial encounter (principal); V29.88XA Motorcycle rider (driver) (passenger) injured in other specified transport accidents, initial encounter; M25.511 Pain in right shoulder | CPT/HCPCS: 73030; 99213; 99214 ==

== ENCOUNTER 2022-05-03 07:06 | Emergency (ER) | payer MEDICAID, SELFPAY ==
[2022-05-03 07:11] VITALS: BP 164/94; PULSE 91; RESP 18; TEMP 36.8; O2SAT 95; BMI 33.9
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
--- NOTE | 2022-05-03 07:23 | W.ED.MALEGU ---
Documented by User: Kim Ames PA-C 05/03/22 10:39 HPI - Male Genitourinary General: Chief complaint: Urogenital-Male Stated complaint: LEFT TESTICULAR PAIN Time Seen by Provider: 05/03/22 07:15 Source: patient and family Mode of arrival: EMS Limitations: no limitations History of Present Illness: 36-year-old male presents to the ER today complaining of left testicular pain. Patient called EMS this a.m. when the pain was not improving. Patient reports this started about 2:30 AM. He reports is a constant severe 10 out of 10 pain in the left testicle. Patient denies having had anything like this before. Patient has not take anything for the pain at home. He did receive Zofran in route for nausea. Patient denies any recent high risk sexual activity. Patient reports he has been with his partner for 10+ years. Patient reports a history of drug abuse but reports being clean. Patient denies any fever or chills. Denies any pain with urination. Review of Systems General: Reports: 10 or more systems reviewed and unremarkable except in HPI and below PFSH ED PFSH: Medical History Erectile dysfunction Tadalafil prescribed September 2021. History of kidney stones Low testosterone in male Lower urinary tract symptoms OCD (obsessive compulsive disorder) Surgical History History of tonsillectomy and adenoidectomy Family History Father , at age 68 Alcoholic Mother Cancer BREAST CANCER Sister Cancer Other CAD (coronary artery disease) Diabetes Hypertension Social History Smoking and tobacco status: current every day smoker Alcohol intake: unknown Adopted: No Caregiver/support person: No Marital status: Current occupational status: unemployed History of recent travel: No Physical Exam Const: COMMON NORMALS: average body habitus, no limitations and well nourished; apparent distress Resp: COMMON NORMALS: normal respiratory effort, No retractions and clear to auscultation bilaterally EFFORT & INSPECTION: Yes able to speak in complete sentences AUSCULTATION: clear to auscultation bilaterally Cardio: COMMON NORMALS: regular rate and regular rhythm RATE: regular rate RHYTHM: regular rhythm : MALE GROIN/PERINEUM EXAM: No edema, No erythema, No hernia and Yes tenderness (Left testicle) SCROTUM: Yes Scrotal tenderness present (Left testicle), No erythematous, No ecchymosis, No edematous, No scrotal swelling and No scrotal mass Back/Pelvis: COMMON NORMALS: thoraco-lumbar ROM normal Extremity: COMMON NORMALS: normal to inspection and full ROM Neuro: COMMON NORMALS: moves all extremities and no focal motor deficits Psych: OTHER: Patient does appear in distress however is abnormally fidgety and in constant motion. Patient's words are slurred. Skin: NARRATIVE SKIN EXAM: Patient appears diaphoretic. No obvious skin rashes or wounds noted. Course ED course: 36-year-old male presents to the ER via EMS today for left testicular pain that started about 2:30 AM. Patient denies any history of testicle issues. Patient denies any high risk sexual activity recently. Patient reports pain is a 10 out of 10 at this time. Patient denies any drug use recently however patient is abnormally fidgety and in constant motion. Patient's language is slurred. Patient does have a history of a stroke however only deficit is some weakness on one side. Patient and spouse in the room also reports patient has not had drug use in years. Patient was given Zofran in route however reports it did not help. Patient was not given anything for pain. We will give patient 4 mg of morphine at this time and Reglan. We will get an ultrasound of the testicle and lab work. Vital Signs: Vital signs: Vital Signs Temperature 98.3 F 05/03/22 07:11 Pulse Rate 76 05/03/22 10:46 Respiratory Rate 16 05/03/22 10:46 Blood Pressure 123/79 05/03/22 09:45 Pulse Oximetry 96 05/03/22 10:46 Oxygen Delivery Me thod 05/03/22 10:46 MDM - Male Medical Decision Making 36-year-old male presents to the ER via EMS today for left testicular pain that started about 2:30 AM. Patient denies any history of testicle issues. Patient denies any high risk sexual activity recently. Patient reports pain is a 10 out of 10 at this time. Patient denies any drug use recently however patient is abnormally fidgety and in constant motion. Patient's language is slurred. Patient does have a history of a stroke however only deficit is some weakness on one side. Patient and spouse in the room also reports patient has not had drug use in years. Patient was given Zofran in route however reports it did not help. Patient was not given anything for pain. We will give patient 4 mg of morphine at this time and Reglan. We will get an ultrasound of the testicle and lab work. Ultrasound indicates probable epididymitis. No testicular torsion is noted. We will treat patient for epididymitis at this time. Rocephin given in the ER along with 1 L of fluid. Patient will be sent home on doxycycline twice daily x10 days. Patient can take Tylenol for pain. Discussed findings with patient. We did discuss that sometimes this is caused by an STD and we will cover for the STDs at this time. We did get a urine STD panel which will be run and we can notify patient of results. UA does not indicate any infection. Patient should follow-up with his PCP in 3 to 5 days if no improvement. Return to the ER with new or worsening symptoms. Patient verbalized understanding and was in agreement with the treatment plan. Lab Data : 05/03/22 06:54 05/03/22 06:54 Radiology Impressions Scrotum Ultrasound 05/03/22 07:19 IMPRESSION: 1. Enlarged echogenic left epididymal tail suspicious for epididymitis. 2. Small hydrocele on the left and minimal hydrocele on the right. 3. No evidence of testicular torsion. Laboratory Results WBC 13.7 10^3/uL (4.0-10.0) H 05/03/22 06:54 RBC 5.17 10^6/uL (4.1-5.3) 05/03/22 06:54 Hgb 14.9 g/dL (11.7-16.6) 05/03/22 06:54 Hct 42.1 % (42.0-52.0) 05/03/22 06:54 MCV 81.4 fl (80-94) 05/03/22 06:54 MCH 28.8 pg (28.0-34.0) 05/03/22 06:54 MCHC 35.4 g/dL (30.0-36.0) 05/03/22 06:54 RDW 12.3 % (12.1-15.1) 05/03/22 06:54 Plt Count 298 10^3/cmm (130-400) 05/03/22 06:54 MPV 10.0 fL (7.4-10.4) 05/03/22 06:54 Neut % (Auto) 70.8 % 05/03/22 06:54 Lymph % (Auto) 16.8 % 05/03/22 06:54 Lewis % (Auto) 10.7 % 05/03/22 06:54 Eos % (Auto) 0.8 % 05/03/22 06:54 Baso % (Auto) 0.6 % 05/03/22 06:54 Neut # (Auto) 9.71 10^3/uL (1.8-7.7) H 05/03/22 06:54 Lymph # (Auto) 2.3 10^3/uL (0.8-4.8) 05/03/22 06:54 [place] # (Auto) 1.5 10^3/uL (0.2-0.9) H 05/03/22 06:54 Eos # (Auto) 0.1 10^3/uL (0.0-0.8) 05/03/22 06:54 Baso # (Auto) 0.1 10^3/uL (0.0-0.1) 05/03/22 06:54 Nucleated RBC % (auto) 0 % 05/03/22 06:54 Nucleated RBCs # 0.0 /100WBC 05/03/22 06:54 Sodium 139 mmol/L (136-145) 05/03/22 06:54 Potassium 4.4 mmol/L (3.5-5.1) 05/03/22 06:54 Chloride 100 mmol/L (98-107) 05/03/22 06:54 Carbon Dioxide 23 mmol/L (22-29) 05/03/22 06:54 Anion Gap 20.4 (5-19) H 05/03/22 06:54 BUN 17 mg/dL (6-20) 05/03/22 06:54 Creatinine 1.2 mg/dL (0.7-1.2) 05/03/22 06:54 GFR Calculation 68.9 mL/min (90-130) L 05/03/22 06:54 Glucose 99 mg/dL (65-115) 05/03/22 06:54 Calculated Osmolality 290 mOsm/kg (285-295) 05/03/22 06:54 Calcium 9.6 mg/dL (8.5-10.5) 05/03/22 06:54 Total Bilirubin 0.8 mg/dL (0.15-1.2) 05/03/22 06:54 AST 20 U/L (0-40) 05/03/22 06:54 ALT 20 U/L (0-41) 05/03/22 06:54 Alkaline Phosphatase 93 IU/L (40-130) 05/03/22 06:54 Total Protein 7.3 g/dL (6.6-8.7) 05/03/22 06:54 Albumin 4.4 g/dL (3.5-5.2) 05/03/22 06:54 Globulin 2.9 g/dL (1.3-4.6) 05/03/22 06:54 Urine Color Yellow (Yellow) 05/03/22 10:01 Urine Appearance Sl hazy (CLEAR) 05/03/22 10:01 Urine pH 5 (5-7) 05/03/22 10:01 Ur Specific [place] 1.030 (1.005-1.030) 05/03/22 10:01 Urine Protein Neg (Negative) 05/03/22 10:01 Urine Glucose (UA) Norm (Normal) 05/03/22 10:01 Urine Ketones Negative (Negative) 05/03/22 10:01 Urine Blood 3+ (Negative) H 05/03/22 10:01 Urine Nitrate Negative (Negative) 05/03/22 10:01 Urine Bilirubin Neg (Negative) 05/03/22 10:01 Urine Urobilinogen Norm mg/dL (Negative) 05/03/22 10:01 Ur Leukocyte Esterase Negative (Negative) 05/03/22 10:01 Urine RBC 25-40 /hpf (0-2) H 05/03/22 10:01 Urine WBC Rare /hpf (0-5) 05/03/22 10:01 Ur Squamous Epith Cells Rare /hpf (0-5) 05/03/22 10:01 Amorphous Sediment Not Reportable 05/03/22 10:01 Urine Bacteria Trace /hpf (NONE) 05/03/22 10:01 Urine Mucus 1+ /hpf 05/03/22 10:01 Critical Care Time Critical Care Time: Critical Care Time: No Discharge Plan Discharge Patient Disposition: Home Clinical Impression: Epididymitis, left Condition: Stable Prescriptions: New doxycycline monohydrate 100 mg capsule 100 mg PO BID 10 Days Qty: 20 0RF No Action divalproex [Depakote] 500 mg tablet,delayed release (DR/EC) 500 mg PO ONCE Qty: 30 3RF testosterone cypionate 200 mg/mL oil 200 mg IM .EVERY OTHER WEEK Qty: 10 5RF Rx Instructions: Due on Wednesday every other week amlodipine-benazepril [Lotrel] 5-10 mg capsule 1 cap PO DAILY paliperidone 6 mg Tablet Extended Release 24hr 6 mg PO DAILY 30 Days Qty: 30 1RF escitalopram oxalate 10 mg Tablet 20 mg PO DAILY 30 Days Qty: 30 1RF oxycodone 5 mg tablet 5 mg PO Q6H PRN (Reason: pain) Qty: 4 0RF Discharge Orders: Discharge ED (Routine); Ordered 05/03/22 Ordered By: Kim Ames Referrals: Ann-Marie Steven MD [Primary Care Provider] - Discharge Diet: Usual diet Discharge Activity: Resume usual activity Patient Instructions: Opioid Safety Activity Restrictions/Additional Instructions: Rest recommended. Take doxycycline as prescribed. Take Tylenol for pain. Follow-up with PCP in 2 to 3 days. Return to the ER with new or worsening symptoms. Coding Level of Care Code ED Child Care Specialist for Chg Fwd Exam Detailed Documented by User: Hieu Redmond DO 05/05/22 05:56 HPI - Male Genitourinary General: Chief complaint: Urogenital-Male Stated complaint: LEFT TESTICULAR PAIN Time Seen by Provider: 05/03/22 07:15 PFSH ED PFSH: Medical History Erectile dysfunction Tadalafil prescribed September 2021. History of kidney stones Low testosterone in male Lower urinary tract symptoms OCD (obsessive compulsive disorder) Surgical History History of tonsillectomy and adenoidectomy Family History Father , at age 68 Alcoholic Mother Cancer BREAST CANCER Sister Cancer Other CAD (coronary artery disease) Diabetes Hypertension Social History Smoking and tobacco status: current every day smoker Alcohol intake: unknown Adopted: No Caregiver/support person: No Marital status: Current occupational status: unemployed History of recent travel: No Course Vital Signs: Vital signs: Vital Signs Temperature 98.3 F 05/03/22 07:11 Pulse Rate 76 05/03/22 10:46 Respiratory Rate 16 05/03/22 10:46 Blood Pressure 123/79 05/03/22 09:45 Pulse Oximetry 96 05/03/22 10:46 Oxygen Delivery Me thod 05/03/22 10:46 MDM - Male Medical Decision Making 36-year-old male presents to the ER via EMS today for left testicular pain that started about 2:30 AM. Patient denies any history of testicle issues. Patient denies any high risk sexual activity recently. Patient reports pain is a 10 out of 10 at this time. Patient denies any drug use recently however patient is abnormally fidgety and in constant motion. Patient's language is slurred. Patient does have a history of a stroke however only deficit is some weakness on one side. Patient and spouse in the room also reports patient has not had drug use in years. Patient was given Zofran in route however reports it did not help. Patient was not given anything for pain. We will give patient 4 mg of morphine at this time and Reglan. We will get an ultrasound of the testicle and lab work. Ultrasound indicates probable epididymitis. No testicular torsion is noted. We will treat patient for epididymitis at this time. Rocephin given in the ER along with 1 L of fluid. Patient will be sent home on doxycycline twice daily x10 days. Patient can take Tylenol for pain. Discussed findings with patient. We did discuss that sometimes this is caused by an STD and we will cover for the STDs at this time. We did get a urine STD panel which will be run and we can notify patient of results. UA does not indicate any infection. Patient should follow-up with his PCP in 3 to 5 days if no improvement. Return to the ER with new or worsening symptoms. Patient verbalized understanding and was in agreement with the treatment plan. Chart reviewed and patient discussed with midlevel. Agree with assessment and plan. Lab Data : 05/03/22 06:54 05/03/22 06:54 Radiology Impressions Scrotum Ultrasound 05/03/22 07:19 IMPRESSION: 1. Enlarged echogenic left epididymal tail suspicious for epididymitis. 2. Small hydrocele on the left and minimal hydrocele on the right. 3. No evidence of testicular torsion. Laboratory Results WBC 13.7 10^3/uL (4.0-10.0) H 05/03/22 06:54 RBC 5.17 10^6/uL (4.1-5.3) 05/03/22 06:54 Hgb 14.9 g/dL (11.7-16.6) 05/03/22 06:54 Hct 42.1 % (42.0-52.0) 05/03/22 06:54 MCV 81.4 fl (80-94) 05/03/22 06:54 MCH 28.8 pg (28.0-34.0) 05/03/22 06:54 MCHC 35.4 g/dL (30.0-36.0) 05/03/22 06:54 RDW 12.3 % (12.1-15.1) 05/03/22 06:54 Plt Count 298 10^3/cmm (130-400) 05/03/22 06:54 MPV 10.0 fL (7.4-10.4) 05/03/22 06:54 Neut % (Auto) 70.8 % 05/03/22 06:54 Lymph % (Auto) 16.8 % 05/03/22 06:54 Lewis % (Auto) 10.7 % 05/03/22 06:54 Eos % (Auto) 0.8 % 05/03/22 06:54 Baso % (Auto) 0.6 % 05/03/22 06:54 Neut # (Auto) 9.71 10^3/uL (1.8-7.7) H 05/03/22 06:54 Lymph # (Auto) 2.3 10^3/uL (0.8-4.8) 05/03/22 06:54 [place] # (Auto) 1.5 10^3/uL (0.2-0.9) H 05/03/22 06:54 Eos # (Auto) 0.1 10^3/uL (0.0-0.8) 05/03/22 06:54 Baso # (Auto) 0.1 10^3/uL (0.0-0.1) 05/03/22 06:54 Nucleated RBC % (auto) 0 % 05/03/22 06:54 Nucleated RBCs # 0.0 /100WBC 05/03/22 06:54 Sodium 139 mmol/L (136-145) 05/03/22 06:54 Potassium 4.4 mmol/L (3.5-5.1) 05/03/22 06:54 Chloride 100 mmol/L (98-107) 05/03/22 06:54 Carbon Dioxide 23 mmol/L (22-29) 05/03/22 06:54 Anion Gap 20.4 (5-19) H 05/03/22 06:54 BUN 17 mg/dL (6-20) 05/03/22 06:54 Creatinine 1.2 mg/dL (0.7-1.2) 05/03/22 06:54 GFR Calculation 68.9 mL/min (90-130) L 05/03/22 06:54 Glucose 99 mg/dL (65-115) 05/03/22 06:54 Calculated Osmolality 290 mOsm/kg (285-295) 05/03/22 06:54 Calcium 9.6 mg/dL (8.5-10.5) 05/03/22 06:54 Total Bilirubin 0.8 mg/dL (0.15-1.2) 05/03/22 06:54 AST 20 U/L (0-40) 05/03/22 06:54 ALT 20 U/L (0-41) 05/03/22 06:54 Alkaline Phosphatase 93 IU/L (40-130) 05/03/22 06:54 Total Protein 7.3 g/dL (6.6-8.7) 05/03/22 06:54 Albumin 4.4 g/dL (3.5-5.2) 05/03/22 06:54 Globulin 2.9 g/dL (1.3-4.6) 05/03/22 06:54 Urine Color Yellow (Yellow) 05/03/22 10:01 Urine Appearance Sl hazy (CLEAR) 05/03/22 10:01 Urine pH 5 (5-7) 05/03/22 10:01 Ur Specific [place] 1.030 (1.005-1.030) 05/03/22 10:01 Urine Protein Neg (Negative) 05/03/22 10:01 Urine Glucose (UA) Norm (Normal) 05/03/22 10:01 Urine Ketones Negative (Negative) 05/03/22 10:01 Urine Blood 3+ (Negative) H 05/03/22 10:01 Urine Nitrate Negative (Negative) 05/03/22 10:01 Urine Bilirubin Neg (Negative) 05/03/22 10:01 Urine Urobilinogen Norm mg/dL (Negative) 05/03/22 10:01 Ur Leukocyte Esterase Negative (Negative) 05/03/22 10:01 Urine RBC 25-40 /hpf (0-2) H 05/03/22 10:01 Urine WBC Rare /hpf (0-5) 05/03/22 10:01 Ur Squamous Epith Cells Rare /hpf (0-5) 05/03/22 10:01 Amorphous Sediment Not Reportable 05/03/22 10:01 Urine Bacteria Trace /hpf (NONE) 05/03/22 10:01 Urine Mucus 1+ /hpf 05/03/22 10:01 Discharge Plan Discharge Patient Disposition: Home Clinical Impression: Epididymitis, left Condition: Stable Prescriptions: New doxycycline monohydrate 100 mg capsule 100 mg PO BID 10 Days Qty: 20 0RF No Action divalproex [Depakote] 500 mg tablet,delayed release (DR/EC) 500 mg PO ONCE Qty: 30 3RF testosterone cypionate 200 mg/mL oil 200 mg IM .EVERY OTHER WEEK Qty: 10 5RF Rx Instructions: Due on Wednesday every other week amlodipine-benazepril [Lotrel] 5-10 mg capsule 1 cap PO DAILY paliperidone 6 mg Tablet Extended Release 24hr 6 mg PO DAILY 30 Days Qty: 30 1RF escitalopram oxalate 10 mg Tablet 20 mg PO DAILY 30 Days Qty: 30 1RF oxycodone 5 mg tablet 5 mg PO Q6H PRN (Reason: pain) Qty: 4 0RF Discharge Orders: Discharge ED (Routine); Ordered 05/03/22 Ordered By: Kim Ames Referrals: Ann-Marie Steven MD [Primary Care Provider] - Discharge Diet: Usual diet Discharge Activity: Resume usual activity Patient Instructions: Opioid Safety Activity Restrictions/Additional Instructions: Rest recommended. Take doxycycline as prescribed. Take Tylenol for pain. Follow-up with PCP in 2 to 3 days. Return to the ER with new or worsening symptoms. Coding Level of Care Code ED Child Care Specialist for Chg Fwd Exam Detailed
[2022-05-03] MEDS: metoclopramide 5 mg/mL SDV 2 mL 10 MG IVP (07:24)
[2022-05-03 07:25] VITALS: RESP 20
[2022-05-03] MEDS: morphine 4 mg/mL SDV 1 mL IVP (07:25)
[2022-05-03 08:04] LABS: Basophils # 0.1 10^3/uL (0.0-0.1); Basophils % 0.6 %; Eosinophils # 0.1 10^3/uL (0.0-0.8); Eosinophils % 0.8 %; Hematocrit 42.1 % (42.0-52.0); Hemoglobin 14.9 g/dL (11.7-16.6); Lymphocytes # 2.3 10^3/uL (0.8-4.8); Lymphocytes % 16.8 %; Mean Corpuscular HGB Conc 35.4 g/dL (30.0-36.0); Mean Corpuscular Hemoglobin 28.8 pg (28.0-34.0); Mean Corpuscular Volume 81.4 fl (80-94); Monocytes # 1.5 10^3/uL (0.2-0.9); Monocytes % 10.7 %; Neutrophils # 9.71 10^3/uL (1.8-7.7); Neutrophils % 70.8 %; Nucleated Red Blood Cells % 0 %; Platelet Count 298 10^3/cmm (130-400); Red Blood Count 5.17 10^6/uL (4.1-5.3); Red Cell Distribution Width 12.3 % (12.1-15.1); White Blood Count 13.7 10^3/uL (4.0-10.0)
[2022-05-03 08:17] LABS: Alanine Aminotransferase 20 U/L (0-41); Albumin Level 4.4 g/dL (3.5-5.2); Alkaline Phosphatase 93 IU/L (40-130); Aspartate Amino Transferase 20 U/L (0-40); Blood Urea Nitrogen 17 mg/dL (6-20); Calcium 9.6 mg/dL (8.5-10.5); Carbon Dioxide 23 mmol/L (22-29); Chloride 100 mmol/L (98-107); Globulin 2.9 g/dL (1.3-4.6); Glomerular Filtration Rate 68.9 mL/min (90-130); Glucose 99 mg/dL (65-115); Osmolality Calculated 290 mOsm/kg (285-295); Sodium 139 mmol/L (136-145); Total Bilirubin 0.8 mg/dL (0.15-1.2); Total Protein 7.3 g/dL (6.6-8.7)
[2022-05-03 08:19] LABS: Anion Gap 20.4 (5-19); Potassium 4.4 mmol/L (3.5-5.1)
[2022-05-03] MEDS: sodium chloride 0.9% 1,000 ML 999 ML IV (08:51)
[2022-05-03 09:45] VITALS: BP 123/79; PULSE 76; O2SAT 92
[2022-05-03 10:26] LABS: Add Urine Microscopic? YES; Bilirubin Urine Neg (Negative); Blood Urine 3+ (Negative); Glucose Urine UA Norm (Normal); Ketones Urine Negative (Negative); Leukocyte Esterase Urine Negative (Negative); Nitrate Urine Negative (Negative); Protein Urine Neg (Negative); Urine Appearance SL Hazy (CLEAR); Urine Color Yellow (Yellow); Urobilinogen Urine Norm (Negative); pH Urine 5 (5-7)
[2022-05-03 10:27] LABS: RBC Urine 25-40 /hpf (0-2); Squamous Epithelial Cell Urine RARE /hpf (0-5); WBC Urine RARE /hpf (0-5)
[2022-05-03 10:28] LABS: Add Urine Culture? Yes; Bacteria Urine TRACE /hpf; Mucus Urine 1+ /hpf
[2022-05-03 10:46] VITALS: PULSE 76; RESP 16; O2SAT 96
== END 2022-05-03 11:09 | disposition home or self-care (01) ==
PROVIDERS: Emergency Provider Physician Assistant; PCP Internal Medicine
DX: N45.1 Epididymitis (principal)
CPT/HCPCS: 76870; 80053; 81001; 85025; 87086; 87491; 87591; 96365; 96375; 99285; J0696; J2270; J2765; J7030

== ENCOUNTER 2022-06-22 10:03 | Outpatient (CLI) | payer MEDICAID, SELFPAY ==
[2022-06-22 10:30] LABS: Basophils # 0.1 10^3/uL (0.0-0.1); Basophils % 0.4 %; Eosinophils # 0.1 10^3/uL (0.0-0.8); Eosinophils % 0.6 %; Hematocrit 41.7 % (42.0-52.0); Hemoglobin 14.1 g/dL (11.7-16.6); Lymphocytes # 3.2 10^3/uL (0.8-4.8); Lymphocytes % 24.1 %; Mean Corpuscular HGB Conc 33.8 g/dL (30.0-36.0); Mean Corpuscular Hemoglobin 28.7 pg (28.0-34.0); Mean Corpuscular Volume 84.9 fl (80-94); Mean Platelet Volume 9.5 fL (7.4-10.4); Monocytes # 1.6 10^3/uL (0.2-0.9); Monocytes % 12.4 %; Neutrophils # 8.24 10^3/uL (1.8-7.7); Neutrophils % 62.1 %; Nucleated Red Blood Cells % 0 %; Platelet Count 384 10^3/cmm (130-400); Red Blood Count 4.91 10^6/uL (4.1-5.3); Red Cell Distribution Width 12.6 % (12.1-15.1); White Blood Count 13.3 10^3/uL (4.0-10.0)
[2022-06-22 10:56] LABS: Slide Review Slide Review Perform
[2022-06-22 10:59] LABS: Testosterone Total 95.1 ng/dL (249-836)
== END 2022-06-22 10:04 | disposition home or self-care (01) ==
LOC: LAB 10:06
PROVIDERS: PCP Internal Medicine; Visit Provider Urology
DX: N52.9 Male erectile dysfunction, unspecified (principal); R79.89 Other specified abnormal findings of blood chemistry
CPT/HCPCS: 84403; 85025

== ENCOUNTER → 2022-07-02 10:35 | Outpatient (BNVA) | payer MEDICAID, SELFPAY | PROVIDERS: PCP Internal Medicine; Visit Provider Urology | DX: N52.9 Male erectile dysfunction, unspecified (principal); R79.89 Other specified abnormal findings of blood chemistry; Z87.442 Personal history of urinary calculi | CPT/HCPCS: 81003 ==

== ENCOUNTER 2022-09-16 05:55 | Inpatient (IN) | payer MEDICAID, SELFPAY ==
[2022-09-16] VITALS (7 sets, daily range): BP systolic 112–138; BP diastolic 62–94; PULSE 74–120; RESP 18–20; TEMP 36.8; O2SAT 93–98; BMI 34.7
--- NOTE | 2022-09-16 06:30 | W.ED.PSYCHS ---
HPI - Psych General: Chief Complaint: Psychiatric Symptoms Stated Complaint: SI Time Seen by Provider: 09/16/22 06:28 Source: patient, EMS and police Mode of arrival: EMS History of Present Illness: 37-year-old male presents emergency room with EMS and law enforcement. He is obviously under the influence and admits that he did methamphetamines recently. He has a flight of ideas, grandiose hallucinations of persecution as well. Known history of methamphetamine abuse. He has previously been hospitalized for drug-induced psychotic episodes and depression with suicidal ideation. He has not been taking his medications recently. His child and left him because of his behaviors he is convinced that they have been taken by the police enforcement due to some form of sex slavery. He is extremely agitated multiple attempts to de-escalate and redirect him so far have been successful but only marginally so. We have been able to redirect him back to his room to keep him from leaving we have not been able to get him to take any medications. He did express suicidal ideation to law enforcement and EMS. He has not been taking his escitalopram or paliperidone. Patient admits to having turned his house upside down because he is upset he also evidently painted his house and the front step of his house. MD complaint: suicidal ideation and altered mental status Onset (ago): unknown Duration: constant History of same: Yes Relieving factors: none Exacerbating factors: drug use Context: recent drug abuse and not taking psychiatric medications Associated psychiatric symptoms: none Associated symptoms: Reports delusions, depression, suicidal ideation and racing thoughts Treatments prior to arrival: placed on mental health hold Review of Systems General: Reports: ROS unobtainable due to mental status Const: Denies: fever(s) or chills ENMT: Denies: throat pain Card: Denies: chest pain Resp: Denies: dyspnea, productive cough or non-productive cough GI: Denies: abdominal pain, nausea or vomiting Psych: Reports: depression and suicidal ideation PFSH ED PFSH: Medical History Erectile dysfunction Tadalafil prescribed September 2021. History of kidney stones Low testosterone in male Lower urinary tract symptoms OCD (obsessive compulsive disorder) Surgical History History of tonsillectomy and adenoidectomy Family History Father , at age 68 Alcoholic Mother Cancer BREAST CANCER Sister Cancer Other CAD (coronary artery disease) Diabetes Hypertension Social History Smoking and tobacco status: current every day smoker Alcohol intake: never Adopted: No Caregiver/support person: No Marital status: Current occupational status: unemployed History of recent travel: No Physical Exam Const: ORIENTATION/CONSCIOUSNESS: Yes awake HENMT: COMMON NORMALS: normocephalic and atraumatic HEAD & SCALP: normocephalic and atraumatic Neck/C-Spine: COMMON NORMALS: full ROM, no lymphadenopathy, supple and no JVD Resp: COMMON NORMALS: normal respiratory effort, No retractions, No use of accessory muscles and clear to auscultation bilaterally AUSCULTATION: clear to auscultation bilaterally Cardio: COMMON NORMALS: no JVD, regular rate, regular rhythm and No murmurs present (Cardio) RATE: regular rate RHYTHM: regular rhythm Extremity: COMMON NORMALS: normal to inspection, capillary refill normal, no clubbing, cyanosis or edema, no calf tenderness and no pedal edema Psych: ATTITUDE: Yes Belligerent attititude/behavior present, Yes agitated and Yes aggressive SPEECH: Yes excessive MOOD & AFFECT: Yes anxious and Yes irritable THOUGHT PROCESS: disorganized and Flight of ideas present THOUGHT CONTENT: Yes delusions INSIGHT: Good insight present (Psych) JUDGEMENT: judgment not good Skin: COMMON NORMALS: no rashes or lesions noted GENERAL SKIN EXAM: no rashes or lesions noted OTHER: Pains on his back and on his extremities. Course Vital Signs: Vital signs: Vital Signs Temperature 98.2 F 09/16/22 05:58 Pulse Rate 97 09/16/22 17:18 Respiratory Rate 18 09/16/22 17:18 Blood Pressure 138/71 09/16/22 17:18 Pulse Oximetry 97 09/16/22 17:18 Oxygen Delivery Me thod 09/16/22 07:58 MDM - Psych Medical Decision Making Discussed with Dr. Ann orders written. Will admit for acute psychosis. Patient was very agitated on methamphetamines when he arrived he was given doses of Ativan and Zyprexa. In the past he required higher doses to alleviate his agitation. He did get quite sedate after receiving Ativan and Zyprexa and required monitoring for time before going to the [facility]. Medical Records I reviewed the patient's medical records. Lab Data I reviewed the patient's lab results. 09/16/22 07:15 09/16/22 07:15 Laboratory Results WBC 15.0 10^3/uL (4.0-10.0) H 09/16/22 07:15 RBC 5.07 10^6/uL (4.1-5.3) 09/16/22 07:15 Hgb 14.4 g/dL (11.7-16.6) 09/16/22 07:15 Hct 43.4 % (42.0-52.0) 09/16/22 07:15 MCV 85.6 fl (80-94) 09/16/22 07:15 MCH 28.4 pg (28.0-34.0) 09/16/22 07:15 MCHC 33.2 g/dL (30.0-36.0) 09/16/22 07:15 RDW 13.2 % (12.1-15.1) 09/16/22 07:15 Plt Count 250 10^3/cmm (130-400) 09/16/22 07:15 MPV 10.1 fL (7.4-10.4) 09/16/22 07:15 Neut % (Auto) 67.4 % 09/16/22 07:15 Lymph % (Auto) 21.6 % 09/16/22 07:15 [place] % (Auto) 10.2 % 09/16/22 07:15 Eos % (Auto) 0.3 % 09/16/22 07:15 Baso % (Auto) 0.3 % 09/16/22 07:15 Neut # (Auto) 10.11 10^3/uL (1.8-7.7) H 09/16/22 07:15 Lymph # (Auto) 3.3 10^3/uL (0.8-4.8) 09/16/22 07:15 [place] # (Auto) 1.5 10^3/uL (0.2-0.9) H 09/16/22 07:15 Eos # (Auto) 0.1 10^3/uL (0.0-0.8) 09/16/22 07:15 Baso # (Auto) 0.1 10^3/uL (0.0-0.1) 09/16/22 07:15 Nucleated RBC % (auto) 0 % 09/16/22 07:15 Nucleated RBCs # 0.0 /100WBC 09/16/22 07:15 Sodium 137 mmol/L (136-145) 09/16/22 07:15 Potassium 3.9 mmol/L (3.5-5.1) 09/16/22 07:15 Chloride 100 mmol/L (98-107) 09/16/22 07:15 Carbon Dioxide 27 mmol/L (22-29) 09/16/22 07:15 Anion Gap 13.9 (5-19) 09/16/22 07:15 BUN 22 mg/dL (6-20) H 09/16/22 07:15 Creatinine 1.0 mg/dL (0.7-1.2) 09/16/22 07:15 GFR Calculation 84.5 mL/min (90-130) L 09/16/22 07:15 Glucose 106 mg/dL (65-115) 09/16/22 07:15 Calculated Osmolality 288 mOsm/kg (285-295) 09/16/22 07:15 Calcium 9.6 mg/dL (8.5-10.5) 09/16/22 07:15 Total Bilirubin 1.0 mg/dL (0.15-1.2) 09/16/22 07:15 AST 34 U/L (0-40) 09/16/22 07:15 ALT 27 U/L (0-41) 09/16/22 07:15 Alkaline Phosphatase 77 U/L (40-130) 09/16/22 07:15 Total Protein 7.7 g/dL (6.6-8.7) 09/16/22 07:15 Albumin 4.9 g/dL (3.5-5.2) 09/16/22 07:15 Globulin 2.8 g/dL (1.3-4.6) 09/16/22 07:15 Salicylates < 0.3 mg/dL (3-10) L 09/16/22 07:15 Acetaminophen < 5.0 ug/mL (10-30) L 09/16/22 07:15 Discharge Plan Discharge Patient Disposition: Admitted As Inpatient Admit Provider: Jovanni Ann Clinical Impression: Acute psychosis, Anxiety, Methamphetamine abuse Condition: Stable Coding Level of Care Code ED Competitive Intelligence Manager for [place] Fwd Exam Comprehensive
[2022-09-16] MEDS: lisinopril 10 mg Tablet PO (06:50)
[2022-09-16] MEDS: amlodipine 5 mg Tablet 2.5 MG PO (06:50)
[2022-09-16] MEDS: aspirin 81 mg Chew Tablet PO (06:51)
[2022-09-16] MEDS: OLANZapine 10 mg ODT 20 MG PO (07:06)
[2022-09-16] MEDS: LORazepam 2 mg Tablet 6 MG PO (07:06)
[2022-09-16 07:25] LABS: Basophils # 0.1 10^3/uL (0.0-0.1); Basophils % 0.3 %; Eosinophils # 0.1 10^3/uL (0.0-0.8); Eosinophils % 0.3 %; Hematocrit 43.4 % (42.0-52.0); Hemoglobin 14.4 g/dL (11.7-16.6); Lymphocytes # 3.3 10^3/uL (0.8-4.8); Lymphocytes % 21.6 %; Mean Corpuscular HGB Conc 33.2 g/dL (30.0-36.0); Mean Corpuscular Hemoglobin 28.4 pg (28.0-34.0); Mean Corpuscular Volume 85.6 fl (80-94); Mean Platelet Volume 10.1 fL (7.4-10.4); Monocytes # 1.5 10^3/uL (0.2-0.9); Monocytes % 10.2 %; Neutrophils # 10.11 10^3/uL (1.8-7.7); Neutrophils % 67.4 %; Nucleated Red Blood Cells % 0 %; Platelet Count 250 10^3/cmm (130-400); Red Blood Count 5.07 10^6/uL (4.1-5.3); Red Cell Distribution Width 13.2 % (12.1-15.1)
[2022-09-16 07:39] LABS: Alanine Aminotransferase 27 U/L (0-41); Albumin Level 4.9 g/dL (3.5-5.2); Alkaline Phosphatase 77 U/L (40-130); Anion Gap 13.9 (5-19); Aspartate Amino Transferase 34 U/L (0-40); Blood Urea Nitrogen 22 mg/dL (6-20); Calcium 9.6 mg/dL (8.5-10.5); Carbon Dioxide 27 mmol/L (22-29); Chloride 100 mmol/L (98-107); Globulin 2.8 g/dL (1.3-4.6); Glomerular Filtration Rate 84.5 mL/min (90-130); Glucose 106 mg/dL (65-115); Osmolality Calculated 288 mOsm/kg (285-295); Potassium 3.9 mmol/L (3.5-5.1); Sodium 137 mmol/L (136-145); Total Protein 7.7 g/dL (6.6-8.7)
[2022-09-16 07:45] LABS: Acetaminophen < 5.0 ug/mL (10-30); Salicylate < 0.3 mg/dL (3-10)
--- NOTE | 2022-09-16 07:56 | PC.NURSE ---
Pt sleeping after recieving the meds, pulse ox placed on pts finger, 98% on room air
--- NOTE | 2022-09-16 08:23 | PC.NURSE ---
Pt was adjusted in bed and his O2 sat was 88%, i placed him on 2 lpm NC and he is 96%
--- NOTE | 2022-09-16 09:23 | ECG_ITS ---
[facility] Test Date: 2022-09-16 Pat Name: Adama Thompson Department: Room: 151 Gender: Male Pre Assembly Wirer: : 1985 Requested By: Hieu Grant Order Number: [id number] Art MD: Daly Herndon M.D. Measurements Intervals [place] Rate: 92 P: 36 KS: 162 QRS: 49 QRSD: 106 T: 56 QT: 374 QTc: 464 Interpretive Statements SINUS RHYTHM Compared to ECG 11/04/2021 07:43:16 No significant changes Electronically Signed On 09-16-2022 18:11:37 BANANA RIPENING ROOM SUPERVISOR by Daly Herndon M.D. [email or web address] [email or web address] Energyoch regional medical centerDelta Systems Engineeringharrison community [id number]
--- NOTE | 2022-09-16 09:23 | PC.PHAR ---
PT UNABLE TO VERIFY- VERIFIED USING EXTERNAL MED LIST LAST FILLED
--- NOTE | 2022-09-16 14:25 | PC.NURSE ---
Pt still sleeping pulse ox is 93% pt will not leave his O2 on, he is snoring
--- NOTE | 2022-09-16 17:18 | PC.NURSE ---
Pt was taken with sercurity to NPU
--- NOTE | 2022-09-16 17:59 | PC.NURSE ---
Pt arrived on unit via wheelchair accompanied by two staff and two security guards. Pt disheveled in appearance, somewhat agitated, pacing. He allowed SHADOWGRAPH OPERATOR staff to complete their initial admission paperwork. He was then served restraining order papers by the [facility] Department. He became tearful, then made a phone call. He was provided a sandwich and something to drink. After approximately 15 minutes, pt was asked to complete his phone call so staff could complete his admission. Pt complied. SEAN Barahona and Darron Farrell RN completed pt's skin assessment and pt changed into unit scrubs. Some red spots noted on pt's abdomen and a healing abrasion was noted on pt's left kay. He reported he'd laid my bike down. [place] stains also noted on various parts of his body. Per report the pt had painted his house last night while under the influence of meth and had been covered with paint. Darron Farrell RN attempted to complete the pt's admission, however, the pt could not stay awake enough to answer the questions; mostly mumbled his answers. Pt did say he was here because he was misunderstood. Per the affidavits accompanying the pt, he made suicidal comments to law enforcement.
[2022-09-17 06:00] VITALS: BP 123/72; PULSE 76; RESP 18; TEMP 36.3; O2SAT 94
--- NOTE | 2022-09-17 09:06 | P.NPUHP_ITS ---
Providers/Chief Complaint Admitting Physician: Jovanni Ann MD Primary Care Provider: Ann-Marie Steven MD Chief Complaint: SI HPI NPU History of Present Illness Adama Thompson is a 37 year old male who presented to the Emergency Department with the following report: General: Chief Complaint: Psychiatric Symptoms Stated Complaint: SI Time Seen by Provider: 09/16/22 06:28 Source: patient, EMS and police Mode of arrival: EMS History of Present Illness: 37-year-old male presents emergency room with EMS and law enforcement. He is obviously under the influence and admits that he did methamphetamines recently. He has a flight of ideas, grandiose hallucinations of persecution as well. Known history of methamphetamine abuse. He has previously been hospitalized for drug-induced psychotic episodes and depression with suicidal ideation. He has not been taking his medications recently. His child and left him because of his behaviors he is convinced that they have been taken by the police enforcement due to some form of sex slavery. He is extremely agitated multiple attempts to de-escalate and redirect him so far have been successful but only marginally so. We have been able to redirect him back to his room to keep him from leaving we have not been able to get him to take any medications. He did express suicidal ideation to law enforcement and EMS. He has not been taking his escitalopram or paliperidone. Patient admits to having turned his house upside down because he is upset he also evidently painted his house and the front step of his house. MD complaint: suicidal ideation and altered mental status Onset (ago): unknown Duration: constant History of same: Yes Relieving factors: none Exacerbating factors: drug use Context: recent drug abuse and not taking psychiatric medications Associated psychiatric symptoms: none Associated symptoms: Reports delusions, depression, suicidal ideation and racing thoughts Treatments prior to arrival: placed on mental health hold. He was admitted to the neuropsychiatric unit for definitive treatment of those issues. He was served for a PFA shortly after reaching the unit which added to his irritability. He had significant medication while in the emergency department and so he was somewhat lethargic in conversation. He presents today reporting that he does not want to talk and that he is tired and he was sleeping prior to speaking with this bid writer. This conversation he did not have a UDS and would not answer questions about whether his behaviors were delivery representative of recent drug use. He does acknowledge that he has not been taking his medication. He was not willing to answer additional questions and did not reflect any of the psychotic nature that was a part of his conversation in the emergency room. An excerpt of his last hospitalization and discharge summary is included below given his limited nature as a historian. Per his 01/31/[address] [facility] inpatient psychiatric discharge summary: Diagnoses at Discharge Discharge Diagnosis (1) Depression with suicidal ideation: Status: Resolved (2) Auditory hallucination: Status: Resolved (3) Drug-induced psychotic disorder: Status: Acute (4) Methamphetamine abuse: Status: Acute (5) Anxiety: Status: Acute Reason for Visit Reason for Visit: 96 HOUR HOLD Brief History: History of Present Illness Adama Thompson is a 36 year old male who presented to the emergency department with the following report: Chief complaint: Psychiatric Symptoms Stated complaint: 96 HOUR HOLD Time Seen by Provider: 01/28/22 17:01 History of Present Illness: HPI: [36]yo patient w/ hx of depression BIBP under involuntary commitment for possible auditory hallucination suicidal ideation. On arrival, the patient is AAOx3 and cooperative with my evaluation. He tells me that he has been hearing voices to hurt himself. Patient says that he taking medicine compliantly but is not able to do with everything is going. Patient has significant increase in t houghts about hurting himself. No focal complaints of chest pain, shortness of breath, palpitations, N/V, focal GI/ complaints. Currently denies HI. Onset: acute on chronic Duration: ongoing Location: home Severity: severe Associated symptoms: Deny chest pain, dyspnea, nausea, rash, palpitations or vomiting. He was admitted to the neuropsychiatric unit for definitive treatment of those issues. He presents today having no explanation for why he is on a 96-hour hold. He reports that his family told that he misconstrued his cry for help. He reports that he continued not taking the Abilify because of how it made him feel but that the increase in Lexapro in his last visit to 40 mg belonging. We have already weather-related what to do. He started having hallucinations and reports. He very much underplays the impact of addiction on his presentation. We discussed the impact of stimulants on psychosis. We then discussed the risk benefits and alternatives of decreasing the Lexapro back to 20 mg daily and initiating Invega 6 mg p.o. every morning and he understood agreed to proceed as is documented in this note. He denied any other substantive changes in his situation since his last admission and discharge. He was already inquiring about when he might be discharged. We agreed to take it a day at a time. An excerpt of his last hospitalization is included below for context given there have been no significant changes since that discharge. Per his 01/12/2022 [facility] inpatient psychiatric evaluation: Adama Thompson is a 36 year old male admitted to our emergency department with the following report: 36-year-old male has a history of methamphetamine abuse called police tonight because he had used meth and was hallucinating and very agitated please called EMS as patient was not making any sense. He admits to meth use and thinks he may have used some bath salts. Here he says he is feeling concrete in his veins he thinks there is blood all over the floor having severe hallucinations and very loose thoughts. He is a little agitated but being coop erative at this time history is difficult at this time. Associated symptoms: Reports auditory hallucinations and visual hallucinations; Deny depression He was admitted to the neuropsychiatry unit for definitive treatment of these issues. He says that yesterday was all just a big Misunderstanding. he said his called the police 3 times because she wanted him in the hospital. He is not sure why. He does not know if she thought it was in his best interest or there is some other reason. He was angry when the police arrived the third time and acted badly and they put him in handcuffs which made things worse. He also said he was angry when he came to the emergency room. He said that he started saying things just to play games with them. He said his blood did feel like it was thick because he had not taken his medication yesterday. He does admit to using methamphetamine recently but does not think that had anything to do with it. He said that the medication that I prescribed last time, Lexapro 20 mg was working. His physician had prescribed Abilify to Boost the effect of the Lexapro he was not taking that regularly because it makes him sleepy all day. He said that it did not seem to be helping Lexapro better. He required 2 doses of IM Haldol and Benadryl and 4 doses of IM Ativan 2 mg yesterday. He says that he is fine now and ready to go home. Below is the discharge summary from the last admission for context. Discharge Diagnosis (1) Depression: Status: Acute Qualifiers: Active/Remission status: currently active Depression Type: major depre ssive disorder Major depression episode severity: severe Major depression recurrence: recurrent Psychotic features: without psychotic features Qualified Code(s): F33.2 - Major depressive disorder, recurrent severe without psychotic features (2) Marijuana dependence: Status: Acute (3) Methamphetamine abuse: Status: Acute Reason for Visit Reason for Visit: OD Trazadone 100MG\Prozac\Hydocodone Brief History: History of Present Illness Adama Thompson is a 36 year old male who was admitted to the emergency department with the following report: General: Chief Complaint: Overdose Stated Complaint: OD Trazadone 100MGProzacHydocodone Time Seen by Provider: 10/23/21 01:18 Source: patient Mode of arrival: ambulatory Limitations: no limitations History of Present Illness: HPI Narrative: 36-year-old male states that he is arguing with his harriet became very upset and took multiple pills in an attempt to kill himself. States he took 7 100 mg trazodone pills states he also took a bottle of Prozac he states he believes it was more than 30 10 mg tablets. He states he took also 1 hydrocodone earlier in the day did not take any large amount of hydrocodone. He states he was just very upset and want to kill himself after the argument denies any worsening improving factors. He was admitted to the neuropsychiatry unit for definitive treatment of these issues. He was a little difficult to interview this morning because he is still sedated from the trazodone that he took. He says that he has been depressed recently. He has been out of work for about 6 years. He is not on disability. He sits at home and does little or nothing. He says he probably goes back and forth between the bed and the chair. He does medical marijuana as much as he can afford to get. He does methamphetamine about twice a week just to get himself moving so that he can do some of the things that he should be doing. He says he cleans the house when he uses methamphetamine. His complains about his methamphetamine use because sometimes he is irritable. He denies that it causes him to have hallucinations or paranoia. That he only drinks a few times per year. He says that he sleeps well. He sometimes has some decreased appetite but has not lost any weight. His weight is stable. He does have low self-esteem, low motivation and energy. He does not remember if the Prozac and trazodone that he took previously helped. He said it has been many years since he took them. He has recently started smoking cigarettes and using drugs when he was about 13 years old. He denies using oxygen at home that his oxygen level in the emergency room was in the upper 80s on room air at times. It was not the 90s on room air after they gave him some oxygen. Hospital Course Hospital Course He slowly acclimated to the individual, group and milieu therapies provided. He was started on Lexapro 10 mg daily. He was in bed all day the first day but then was up and around more. He said that he exaggerated how much he was in bed when he first talked with me. He tolerated these doses and showed steady improvement during his stay. He was able to contract for safety outside hospital prior to discharge. During the hospitalization, patient had routine laboratory studies which were within normal limits except for few outliers. Additionally there was a general medical evaluation which was also within normal limits and revealed no new acute processes. Discharge Summary: At the time of discharge, lethality was denied and psychosis was resolving. Mood and anxiety were well managed. Patient endorsed a plan to follow-up with the aftercare recommendations of the treatment team. Patient was evaluated and deemed to be absent credible lethality, and had achieved the maximum benefit from an inpatient hospitalization, so was discharged. Hospital Course He slowly acclimated to the individual, group and milieu therapies provided. He reports that he stopped his Abilify because of how it made him feel and also there was an increase in his Lexapro that seemed overwhelming. From 20 to 40 mg. We reduced the Lexapro back to 20 mg. We initiated Invega 6 mg p.o. daily and he had a positive response. He continued to have limited insight into the impact of his drug use on psychosis. He did have significant improvement and was able to contract for safety outside of the hospital prior to discharge. During the hospitalization, patient had routine laboratory studies which were within normal limits except for few outliers. Additionally there was a general medical evaluation which was also within normal limits and revealed no new acute processes. Discharge Summary: At the time of discharge, lethality was denied and psychosis was resolving. Mood and anxiety were well managed. Patient endorsed a plan to avoid all drugs of abuse and follow-up with the aftercare recommendations of the treatment team. Patient was evaluated and deemed to be absent credible lethality, and had achieved the maximum benefit from an inpatient hospitalization, so was discha rged. Meds NPU Home Medications Medication Instructions Recorded Confirmed Last Taken Type amlodipine 5 mg-benazepril 10 mg 1 cap PO DAILY 01/12/22 09/16/22 02/11/22 History capsule (Lotrel) paliperidone 6 mg tablet,extended 6 mg PO DAILY 30 days #30 tabs 01/31/22 09/16/22 02/11/22 Rx release 24 hr oxycodone 5 mg tablet 5 mg PO Q6H PRN pain #4 tabs 02/12/22 09/16/22 Unknown Rx aspirin 81 mg chewable tablet 81 mg PO DAILY 06/22/22 09/16/22 Unknown History testosterone cypionate 200 mg/mL 200 mg IM .EVERY OTHER WEEK #2 mL 06/23/22 09/16/22 Unknown Rx intramuscular oil aripiprazole 2 mg tablet 2 mg PO DAILY 09/16/22 09/16/22 Unknown History atorvastatin 10 mg tablet 10 mg PO BEDTIME 09/16/22 09/16/22 Unknown History divalproex 500 mg tablet,delayed 500 mg PO DAILY 09/16/22 09/16/22 Unknown History release (Depakote) escitalopram oxalate 20 mg tablet 20 mg PO DAILY 09/16/22 09/16/22 Unknown History Allergies Allergy/AdvReac Type Severity Reaction Status Date / Time naproxen Allergy ALGY-Difficulty Verified 09/16/22 09:22 Breathing NSAIDS (Non-Steroidal Allergy ALGY-Anaphy Verified 09/16/22 09:22 Anti-Inflamma laxis zonisamide [From Zonegran] AdvReac ADR-Vomitin Verified 09/16/22 09:22 g PFSH NPU PFSH: Medical History Erectile dysfunction Tadalafil prescribed September 2021. History of kidney stones Low testosterone in male Lower urinary tract symptoms OCD (obsessive compulsive disorder) Surgical History History of tonsillectomy and adenoidectomy Family History Father , at age 68 Alcoholic Mother Cancer BREAST CANCER Sister Cancer Other CAD (coronary artery disease) Diabetes Hypertension Social History Smoking and tobacco status: current every day smoker Alcohol intake: never Adopted: No Caregiver/support person: No Marital status: Current occupational status: unemployed History of recent travel: No Mental Status Exam MSE Comments: This is an obese white male in hospital scrubs with limited grooming and absent eye contact with a significant jackson. No abnormal movements except for her retardation. Uncooperative with exam in mild distress. Speech was decreased rate and volume. Mood described I was sleeping, affect congruent. Thought process linear. Thought contact: patient did not respond to questions of lethality but had no inwardly directed aggression and mild irritability noted, there were no delusions reported or noted in the brief conversation, patient did not report any auditory or visual hallucinations. Attention and concentration appeared limited and memory appeared unreliable but none were formally tested. Patient is arousable and oriented to person. Insight, judgment and impulse control appear impaired Vitals/I&O/Wt Last Vital Signs Temp 97.3 F L 09/17/22 06:00 Pulse 76 09/17/22 06:00 Resp 18 09/17/22 06:00 BP 123/72 09/17/22 06:00 Pulse Ox 94 09/17/22 06:00 O2 Del Method 09/16/22 20:09 Weight last 48 hrs Weight 116.12 kg Data NPU 09/16/22 07:15 09/16/22 07:15 A&P Assessment and plan (1) Depression with suicidal ideation: (2) Auditory hallucination: (3) Drug-induced psychotic disorder: (4) Methamphetamine abuse: (5) Anxiety: Plan This is a 36-year old male with history of anxiety, depression, addiction and psychosis likely methamphetamine induced who presents once again with psychosis and likely methamphetamine use on a 96-hour hold with a PFA recently placed by his significant other. 1.? Continue current medication.? We will work with him to restart his medications. 2.? Continue every 15 minute checks for safety. 3.? Encourage individual, group and milieu therapies. 4.? Encourage sober living treatment after discharge at the highest level of care to which he is willing to commit. 5.? We will evaluate for safety given 96-hour hold obtaining collateral information Involuntary Hold Information 96 Hour Hold: 96 Hour Involuntary Admission: Yes 96 Hour Hold Ending Date: 09/22/22 96 Hour Hold Ending Time: 06:00 Attestations NPU Medical Necessity Statement*: Inpatient hospitalization is medically necessary and the clinically appropriate intervention at this time. We will monitor medication to make changes as indicated. Patient will be in the hospital for over two midnights. Likely length of stay 4-6 days. Coding Level of Care Code Acute Computer Patternmaker for Noe Osorio Diagnoses Depression with suicidal ideation F32.A; R45.851 Auditory hallucination R44.0 Drug-induced psychotic disorder F19.959 Methamphetamine abuse F15.10 Anxiety F41.9
[2022-09-17 14:00] VITALS: BP 140/86; PULSE 87; RESP 20; TEMP 37.2; O2SAT 97
[2022-09-17 19:37] VITALS: BP 130/69; PULSE 72; RESP 17; TEMP 36.3; O2SAT 96
[2022-09-17 19:44] LABS: Add Urine Microscopic? NO; Charge for UA Resulting for Rev
[2022-09-17 19:59] LABS: Bilirubin Urine Neg (Negative); Blood Urine Neg (Negative); Glucose Urine UA Norm (Normal); Ketones Urine 1+ (Negative); Leukocyte Esterase Urine Negative (Negative); Nitrate Urine Negative (Negative); Protein Urine Neg (Negative); Urine Appearance Clear (CLEAR); Urine Color Yellow (Yellow); Urobilinogen Urine Neg (Negative); pH Urine 6.5 (5-7)
[2022-09-17 20:18] LABS: Amphetamines Screen Urine Positive (Negative); Barbiturates Screen Urine Negative (Negative); Benzodiazepines Screen Urine Positive (Negative); Cocaine Screen Urine Negative (Negative); Opiate Screen Urine Negative (Negative); PCP Screen Urine Negative (Negative); THC Screen Urine Positive (Negative)
[2022-09-18 06:00] VITALS: RESP 18
--- NOTE | 2022-09-18 16:00 | P.NPUDS_ITS ---
Reason for Visit Reason for Visit: SI Brief History: Adama Thompson is a 37 year old male who presented to the Emergency Department with the following report: General: Chief Complaint: Psychiatric Symptoms Stated Complaint: SI Time Seen by Provider: 09/16/22 06:28 Source: patient, EMS and police Mode of arrival: EMS History of Present Illness: 37-year-old male presents emergency room with EMS and law enforcement. He is obviously under the influence and admits that he did methamphetamines recently. He has a flight of ideas, grandiose hallucinations of persecution as well. Known history of methamphetamine abuse. He has previously been hospitalized for drug-induced psychotic episodes and depression with suicidal ideation. He has not been taking his medications recently. His child and left him because of his behaviors he is convinced that they have been taken by the police enforcement due to some form of sex slavery. He is extremely agitated multiple attempts to de-escalate and redirect him so far have been successful but only marginally so. We have been able to redirect him back to his room to keep him from leaving we have not been able to get him to take any medications. He did express suicidal ideation to law enforcement and EMS. He has not been taking his escitalopram or paliperidone. Patient admits to having turned his house upside down because he is upset he also evidently painted his house and the front step of his house. MD complaint: suicidal ideation and altered mental status Onset (ago): unknown Duration: constant History of same: Yes Relieving factors: none Exacerbating factors: drug use Context: recent drug abuse and not taking psychiatric medications Associated psychiatric symptoms: none Associated symptoms: Reports delusions, depression, suicidal ideation and racing thoughts Treatments prior to arrival: placed on mental health hold. He was admitted to the neuropsychiatric unit for definitive treatment of those issues. He was served for a PFA shortly after reaching the unit which added to his irritability. He had significant medication while in the emergency department and so he was somewhat lethargic in conversation. He presents today reporting that he does not want to talk and that he is tired and he was sleeping prior to speaking with this verse writer. This conversation he did not have a UDS and would not answer questions about whether his behaviors were shared services representative of recent drug use. He does acknowledge that he has not been taking his medication. He was not willing to answer additional questions and did not reflect any of the psychotic nature that was a part of his conversation in the emergency room. An excerpt of his last hospitalization and discharge summary is included below given his limited nature as a historian. Per his 01/31/22 [facility] inpatient psychiatric discharge summary: Diagnoses at Discharge Discharge Diagnosis (1) Depression with suicidal ideation: Status: Resolved (2) Auditory hallucination: Status: Resolved (3) Drug-induced psychotic disorder: Status: Acute (4) Methamphetamine abuse: Status: Acute (5) Anxiety: Status: Acute Reason for Visit Reason for Visit: 96 HOUR HOLD Brief History: History of Present Illness Adama Thompson is a 36 year old male who presented to the emergency department with the following report: Chief complaint: Psychiatric Symptoms Stated complaint: 96 HOUR HOLD Time Seen by Provider: 01/28/22 17:01 History of Present Illness: HPI: [36]yo patient w/ hx of depression BIBP under involuntary commitment for possible auditory hallucination suicidal ideation. On arrival, the patient is AAOx3 and cooperative with my evaluation. He tells me that he has been hearing voices to hurt himself. Patient says that he taking medicine compliantly but is not able to do with everything is going. Patient has significant increase in thoughts about hurting himself. No focal complaints of chest pain, shortness of breath, palpitations, N/V, focal GI/ complaints. Currently denies HI. Onset: acute on chronic Duration: ongoing Location: home Severity: severe Associated symptoms: Deny chest pain, dyspnea, nausea, rash, palpitations or vomiting. He was admitted to the neuropsychiatric unit for definitive treatment of those issues. He presents today having no explanation for why he is on a 96-hour hold. He reports that his family told that he misconstrued his cry for help. He reports that he continued not taking the Abilify because of how it made him feel but that the increase in Lexapro in his last visit to 40 mg belonging. We have already weather-related what to do. He started having hallucinations and reports. He very much underplays the impact of addiction on his presentation. We discussed the impact of stimulants on psychosis. We then discussed the risk benefits and alternatives of decreasing the Lexapro back to 20 mg daily and initiating Invega 6 mg p.o. every morning and he understood agreed to proceed as is documented in this note. He denied any other substantive changes in his situation since his last admission and discharge. He was already inquiring about when he might be discharged. We agreed to take it a day at a time. An excerpt of his last hospitalization is included below for context given there have been no significant changes since that discharge. Per his 01/12/2022 [facility] inpatient psychiatric evaluation: Adama Thompson is a 36 year old male admitted to our emergency department with the following report: 36-year-old male has a history of methamphetamine abuse called police tonight because he had used meth and was hallucinating and very agitated please called EMS as patient was not making any sense. He admits to meth use and thinks he may have used some bath salts. Here he says he is feeling concrete in his veins he thinks there is blood all over the floor having severe hallucinations and very loose thoughts. He is a little agitated but being cooperative at this time history is difficult at this time. Associated symptoms: Reports auditory hallucinations and visual hallucinations; Deny depression He was admitted to the neuropsychiatry unit for definitive treatment of these issues. He says that yesterday was all just a big Misunderstanding. he said his called the police 3 times because she wanted him in the hospital. He is not sure why. He does not know if she thought it was in his best interest or there is some other reason. He was angry when the police arrived the third time and acted badly and they put him in handcuffs which made things worse. He also said he was angry when he came to the emergency room. He said that he started saying things just to play games with them. He said his blood did feel like it was thick because he had not taken his medication yesterday. He does admit to using methamphetamine recently but does not think that had anything to do with it. He said that the medication that I prescribed last time, Lexapro 20 mg was working. His physician had prescribed Abilify to Boost the effect of the Lexapro he was not taking that regularly because it makes him sleepy all day. He said that it did not seem to be helping Lexapro better. He required 2 doses of IM Haldol and Benadryl and 4 doses of IM Ativan 2 mg yesterday. He says that he is fine now and ready to go home. Below is the discharge summary from the last admission for context. Discharge Diagnosis (1) Depression: Status: Acute Qualifiers: Active/Remission status: currently active Depression Type: major depressive disorder Major depression episode severity: severe Major depression recurrence: recurrent Psychotic features: without psychotic features Qualified Code(s): F33.2 - Major depressive disorder, recurrent severe without psychotic features (2) Marijuana dependence: Status: Acute (3) Methamphetamine abuse: Status: Acute Reason for Visit Reason for Visit: OD Trazadone 100MG\Prozac\Hydocodone Brief History: History of Present Illness Adama Thompson is a 36 year old male who was admitted to the emergency department with the following report: General: Chief Complaint: Overdose Stated Complaint: OD Trazadone 100MGProzacHydocodone Time Seen by Provider: 10/23/21 01:18 Source: patient Mode of arrival: ambulatory Limitations: no limitations History of Present Illness: HPI Narrative: 36-year-old male states that he is arguing with his fabi wetzel became very upset and took multiple pills in an attempt to kill himself. States he took 7 100 mg trazodone pills states he also took a bottle of Prozac he states he believes it was more than 30 10 mg tablets. He states he took also 1 hydrocodone earlier in the day did not take any large amount of hydrocodone. He states he was just very upset and want to kill himself after the argument denies any worsening improving factors. He was admitted to the neuropsychiatry unit for definitive treatment of these issues. He was a little difficult to interview this morning because he is still sedated from the trazodone that he took. He says that he has been depressed recently. He has been out of work for about 6 years. He is not on disability. He sits at home and does little or nothing. He says he probably goes back and forth between the bed and the chair. He does medical marijuana as much as he can afford to get. He does methamphetamine about twice a week just to get himself moving so that he can do some of the things that he should be doing. He says he cleans the house when he uses methamphetamine. His complains about his methamphetamine use because sometimes he is irritable. He denies that it causes him to have hallucinations or paranoia. That he only drinks a few times per year. He says that he sleeps well. He sometimes has some decreased appetite but has not lost any weight. His weight is stable. He does have low self-esteem, low motivation and energy. He does not remember if the Prozac and trazodone that he took previously helped. He said it has been many years since he took them. He has recently started smoking cigarettes and using drugs when he was about 13 years old. He denies using oxygen at home that his oxygen level in the emergency room was in the upper 80s on room air at times. It was not the 90s on room air after they gave him some oxygen. Hospital Course Hospital Course He slowly acclimated to the individual, group and milieu therapies provided.? He reports that he stopped his medications and that he has felt better since then. He reports that there has been conflict with his significant other, and that he acknowledges the no contact arrangement served him by the Special Event Assistant's office the day that he came in. He accepts that he is going to have to allow her to contact him as he reports he still wants to connect with her. He does however deny any interest in restarting medications and was not open to any referrals. He did have significant improvement compared to the reports in the emergency department and was able to contract for safety outside of the hospital prior to discharge.? During the hospitalization, patient had routine laboratory studies which were within normal limits except for few outliers.? Additionally there was a general medical evaluation which was also within normal limits and revealed no new acute processes. Discharge Summary: At the time of discharge, he denied psychosis or lethality.? Mood and anxiety were well managed.? Patient endorsed a plan to avoid all drugs of abuse and follow-up with the aftercare recommendations of the treatment team.? Patient was evaluated and deemed to be absent credible lethality, and had achieved the maximum benefit from an inpatient hospitalization, so was discharged. Involuntary Hold Information 96 Hour Hold: 96 Hour Involuntary Admission: Yes 96 Hour Hold Ending Date: 09/22/22 96 Hour Hold Ending Time: 06:00 Mental Status Exam MSE Comments: This is an obese white male in hospital scrubs with limited grooming and absent eye contact with a significant jackson. No abnormal movements except for her retardation. Uncooperative with exam in mild distress. Speech was decreased rate and volume. Mood described as much better, affect congruent. Thought process more organized. Thought contact: patient denied suicidal or homicidal ideation, there were no delusions reported or noted, patient did not report any auditory or visual hallucinations. Attention and concentration appeared intact and memory appeared mostly reliable but none were formally tested. Patient is alert and oriented x3. Insight, judgment and impulse control appear improving. Discharge Data Studies Completed and Pending: Laboratory Results WBC 15.0 10^3/uL (4.0 -10.0) H 09/16/22 07:15 RBC 5.07 10^6/uL (4.1 -5.3) 09/16/22 07:15 Hgb 14.4 g/dL (11.7-1 6.6) 09/16/22 07:15 Hct 43.4 % (42.0-52.0 ) 09/16/22 07:15 MCV 85.6 fl (80-94) 09/16/22 07:15 MCH 28.4 pg (28.0-34. 0) 09/16/22 07:15 MCHC 33.2 g/dL (30.0-3 6.0) 09/16/22 07:15 RDW 13.2 % (12.1-15.1 ) 09/16/22 07:15 Plt Count 250 10^3/cmm (130 -400) 09/16/22 07:15 MPV 10.1 fL (7.4-10.4 ) 09/16/22 07:15 Neut % (Auto) 67.4 % 09/16/22 07:15 Lymph % (Auto) 21.6 % 09/16/22 07:15 Faulkner % (Auto) 10.2 % 09/16/22 07:15 Eos % (Auto) 0.3 % 09/16/22 07:15 Baso % (Auto) 0.3 % 09/16/22 07:15 Neut # (Auto) 10.11 10^3/uL (1. 8-7.7) H 09/16/22 07:15 Lymph # (Auto) 3.3 10^3/uL (0.8- 4.8) 09/16/22 07:15 Faulkner # (Auto) 1.5 10^3/uL (0.2- 0.9) H 09/16/22 07:15 Eos # (Auto) 0.1 10^3/uL (0.0- 0.8) 09/16/22 07:15 Baso # (Auto) 0.1 10^3/uL (0.0- 0.1) 09/16/22 07:15 Nucleated RBC % (a uto) 0 % 09/16/22 07:15 Nucleated RBCs # 0.0 /100WBC 09/16/22 07:15 Sodium 137 mmol/L (136-1 45) 09/16/22 07:15 Potassium 3.9 mmol/L (3.5-5 .1) 09/16/22 07:15 Chloride 100 mmol/L (98-10 7) 09/16/22 07:15 Carbon Dioxide 27 mmol/L (22-29) 09/16/22 07:15 Anion Gap 13.9 (5-19) 09/16/22 07:15 BUN 22 mg/dL (6-20) H 09/16/22 07:15 Creatinine 1.0 mg/dL (0.7-1. 2) 09/16/22 07:15 GFR Calculation 84.5 mL/min (90-1 30) L 09/16/22 07:15 Glucose 106 mg/dL (65-115 ) 09/16/22 07:15 Calculated Osmolal ity 288 mOsm/kg (285- 295) 09/16/22 07:15 Calcium 9.6 mg/dL (8.5-10 .5) 09/16/22 07:15 Total Bilirubin 1.0 mg/dL (0.15-1 .2) 09/16/22 07:15 AST 34 U/L (0-40) 09/16/22 07:15 ALT 27 U/L (0-41) 09/16/22 07:15 Alkaline Phosphata se 77 U/L (40-130) 09/16/22 07:15 Total Protein 7.7 g/dL (6.6-8.7 ) 09/16/22 07:15 Albumin 4.9 g/dL (3.5-5.2 ) 09/16/22 07:15 Globulin 2.8 g/dL (1.3-4.6 ) 09/16/22 07:15 Urine Color Yellow (Yellow) 09/17/22 19:01 Urine Appearance Clear (CLEAR) 09/17/22 19:01 Urine pH 6.5 (5-7) 09/17/22 19:01 Ur Specific Gravit y 1.020 (1.005-1.0 30) 09/17/22 19:01 Urine Protein Neg (Negative) 09/17/22 19:01 Urine Glucose (UA) Norm (Normal) 09/17/22 19:01 Urine Ketones 1+ (Negative) H 09/17/22 19:01 Urine Blood Neg (Negative) 09/17/22 19:01 Urine Nitrate Negative (Negati ve) 09/17/22 19:01 Urine Bilirubin Neg (Negative) 09/17/22 19:01 Urine Urobilinogen Neg mg/dL (Negati ve) 09/17/22 19:01 Ur Leukocyte Marilee ase Negative (Negati ve) 09/17/22 19:01 Salicylates < 0.3 mg/dL (3-10 ) L 09/16/22 07:15 Urine Opiates Scre en Negative ng/mL (N egative) 09/17/22 19:01 Acetaminophen < 5.0 ug/mL (10-3 0) L 09/16/22 07:15 Ur Barbiturates Sc reen Negative ng/mL (N egative) 09/17/22 19:01 Ur Phencyclidine S crn Negative ng/mL (N egative) 09/17/22 19:01 Ur Amphetamines Sc reen Positive ng/mL (N egative) H 09/17/22 19:01 U Benzodiazepines Scrn Positive ng/mL (N egative) H 09/17/22 19:01 Urine Cocaine Scre en Negative ng/mL (N egative) 09/17/22 19:01 U Marijuana (THC) Screen Positive ng/mL (N egative) H 09/17/22 19:01 Vitals: Last Vital Signs Temp 97.4 F L 09/17/22 19:37 Pulse 72 09/17/22 19:37 Resp 18 09/18/22 06:00 BP 130/69 09/17/22 19:37 Pulse Ox 96 09/17/22 19:37 O2 Del Method 09/16/22 20:09 Discharge Plan Discharge Patient Disposition: Home Condition: Stable Prescriptions: Discontinued aspirin 81 mg tablet,chewable 81 mg PO DAILY testosterone cypionate 200 mg/mL oil 200 mg IM .EVERY OTHER WEEK Qty: 2 5RF escitalopram oxalate 20 mg tablet 20 mg PO DAILY divalproex [Depakote] 500 mg tablet,delayed release (DR/EC) 500 mg PO DAILY atorvastatin 10 mg tablet 10 mg PO BEDTIME aripiprazole 2 mg tablet 2 mg PO DAILY amlodipine-benazepril [Lotrel] 5-10 mg capsule 1 cap PO DAILY paliperidone 6 mg Tablet Extended Release 24hr 6 mg PO DAILY 30 Days Qty: 30 1RF oxycodone 5 mg tablet 5 mg PO Q6H PRN (Reason: pain) Qty: 4 0RF Discharge Orders: Discharge Order (Routine); Ordered 09/18/22 Ordered By: Jovanni Ann Referrals: Ann-Marie Steven MD [Primary Care Provider] - Discharge Diet: Regular Discharge Activity: Resume usual activity Patient Instructions: Opioid Safety Discharge Attestations NPU Time Spent in Discharge Care*: less than 30 min Specific Discharge Activities: Specific discharge activities: educating patient, discussing with foster care case manager/social workers/dc planners, documenting/other paperwork and evaluating patient/reviewing data Coding Level of Care Code Acute Chg FW DC note
[2022-09-18 16:11] VITALS: BP 130/69; PULSE 72; RESP 18; TEMP 36.3; O2SAT 96
== END 2022-09-18 16:18 | disposition home or self-care (01) | DRG 897 ==
LOC: ER 08:40 → NP 10:50
PROVIDERS: Admitting Provider Psychiatry & Neurology Psychiatry; Emergency Provider Family Medicine; PCP Internal Medicine; Visit Provider Psychiatry & Neurology Psychiatry
DX: F15.951 Other stimulant use, unspecified with stimulant-induced psychotic disorder with hallucinations (principal); R45.851 Suicidal ideations; F41.9 Anxiety disorder, unspecified; F32.A Depression, unspecified
CPT/HCPCS: 36415; 80053; 80306; 80307; 81003; 85025; 93005; 97165; 99285

== ENCOUNTER 2022-11-04 14:24 | Emergency (ER) | payer MEDICAID, SELFPAY ==
[2022-11-04 14:26] VITALS: BP 135/75; PULSE 90; RESP 18; TEMP 36.5; O2SAT 98; BMI 34.7
--- NOTE | 2022-11-04 14:52 | XR_ITS ---
WS: [id number] ABDOMEN 1 VIEW(S) HISTORY: Hematuria COMPARISON: None available. Normal bowel gas pattern. No suspicious calcifications or masses. No bone abnormality. XR/XR KUB portable [id number] IMPRESSION: Normal abdomen.
[2022-11-04 15:05] VITALS: BP 130/86; PULSE 87; O2SAT 99
--- NOTE | 2022-11-04 15:19 | ED_ITS ---
HPI - Male Genitourinary General: Chief complaint: Urogenital-Male Stated complaint: urinating blood Time Seen by Provider: 11/04/22 14:52 History of Present Illness: 39-year-old male presents emergency room with complaint of hematuria. He is convinced he passed a kidney stone and it tore his urethra when he urinated out he did not see it when he urinated it he has has kidney stones in the past he has no flank pain now. He is not urinated for some time he says is very painful when he urinated. Denies any fever sweats or chills or any penile drainage. MD Complaint: other (Hematuria) Onset (ago): hour(s) Duration: constant Location: penis Severity: moderate Quality: sharp Relieving factors: none Exacerbating factors: urination Associated symptoms: Reports dysuria and hematuria; Deny discharge, fevers/chills, nausea, rash, swelling, urinary incontinence, urinary retention, mass or vomiting Review of Systems Const: Denies: fever(s), chills, body aches, change in appetite, fatigue or malaise ENMT: Denies: throat pain, ear or mastoid pain, nasal discharge or nasal congestion Card: Denies: chest pain, edema, dyspnea on exertion or orthopnea Resp: Denies: dyspnea, productive cough or non-productive cough GI: Denies: abdominal pain, nausea or vomiting : Reports: difficulty urinating, dysuria and hematuria; Denies: flank pain, urinary frequency, urinary urgency or urinary incontinence Skin/Breast: Denies: rash or pruritus PFSH ED PFSH: Medical History Erectile dysfunction Tadalafil prescribed September 2021. History of kidney stones Low testosterone in male Lower urinary tract symptoms OCD (obsessive compulsive disorder) Surgical History History of tonsillectomy and adenoidectomy Family History Father , at age 68 Alcoholic Mother Cancer BREAST CANCER Sister Cancer Other CAD (coronary artery disease) Diabetes Hypertension Social History Smoking and tobacco status: current every day smoker Alcohol intake: never Adopted: No Caregiver/support person: No Marital status: Current occupational status: unemployed History of recent travel: No Physical Exam Const: GENERAL APPEARANCE: comfortable ORIENTATION/CONSCIOUSNESS: Yes awake, Yes oriented to person, Yes oriented to place and Yes oriented to time HENMT: COMMON NORMALS: normocephalic, atraumatic and hearing grossly normal bilaterally HEAD & SCALP: normocephalic and atraumatic Resp: COMMON NORMALS: normal respiratory effort, No retractions, No use of accessory muscles and clear to auscultation bilaterally AUSCULTATION: clear to auscultation bilaterally Cardio: COMMON NORMALS: regular rate, regular rhythm and No murmurs present (Cardio) RATE: regular rate RHYTHM: regular rhythm GI: COMMON NORMALS: Soft to palpation and No hepatosplenomegaly present AUSCULTATION: Yes normoactive bowel sounds PALPATION: Yes Soft to palpation, No Tenderness to palpation present (GI), No Guarding due to palpation present (GI) and Yes No hepatosplenomegaly present : COMMON NORMALS: Yes no CVA tenderness BLADDER/KIDNEY EXAM: Yes no CVA tenderness Back/Pelvis: COMMON NORMALS: no CVA tenderness Extremity: COMMON NORMALS: normal to inspection, capillary refill normal, no clubbing, cyanosis or edema, no calf tenderness and no pedal edema Neuro: SENSORIUM/ORIENTATION: Yes oriented to person, Yes oriented to place and Yes oriented to time Psych: MOOD & AFFECT: Yes irritable Skin: COMMON NORMALS: no rashes or lesions noted GENERAL SKIN EXAM: no rashes or lesions noted Course Vital Signs: Vital signs: Vital Signs Temperature 97.7 F 11/04/22 14:26 Pulse Rate 74 11/04/22 16:29 Respiratory Rate 18 11/04/22 14:26 Blood Pressure 147/75 11/04/22 16:29 Pulse Oximetry 97 11/04/22 16:29 Oxygen Delivery Me thod 11/04/22 14:26 MDM - Male Medical Decision Making Semination of the penis there was no purulent drainage no bloody drainage noted at the meatus. No trauma. The CT there is no evidence of recent passage of a s tone UA shows 15-25 red blood cells with no white blood cells. Culture urine started on Bactrim and Flomax. Have him follow-up with his primary care physician. If not improving can be referred to urology. While we are waiting for the CT results patient became very aggressive. He was angry at our assessment and insisted that the blood had to be coming from the urethra not the bladder. He demanded to be discharged. He may return at any point if he wishes. Medical Records I reviewed the patient's medical records. Lab Data I reviewed the patient's lab results. 11/04/22 15:08 11/04/22 15:08 Radiology Impressions KUB X-Ray 11/04/22 14:52 IMPRESSION: Normal abdomen. Abdomen/Pelvis CT 11/04/22 16:06 IMPRESSION: 1. Limited noncontrast examination without CT evidence of acute intra-abdominal or pelvic pathology. 2. Additional findings, as above. COMMENTS: Consistent with the [employer]'s Incidental Findings Committee white paper (J Am Natalia Radiol 2018): Any incidental renal lesion less than 1 cm or classified as too small to characterize, or any incidental cystic renal lesion characterized as simple-appearing, is likely benign. No follow-up imaging is recommended for these lesions per consensus recommendations based on imaging criteria. Laboratory Results WBC 7.3 10^3/uL (4.0-10.0) 11/04/22 15:08 RBC 4.96 10^6/uL (4.1-5.3) 11/04/22 15:08 Hgb 14.2 g/dL (11.7-16.6) 11/04/22 15:08 Hct 42.5 % (42.0-52.0) 11/04/22 15:08 MCV 85.7 fl (80-94) 11/04/22 15:08 MCH 28.6 pg (28.0-34.0) 11/04/22 15:08 MCHC 33.4 g/dL (30.0-36.0) 11/04/22 15:08 RDW 13.3 % (12.1-15.1) 11/04/22 15:08 Plt Count 226 10^3/cmm (130-400) 11/04/22 15:08 MPV 10.0 fL (7.4-10.4) 11/04/22 15:08 Neut % (Auto) 51.4 % 11/04/22 15:08 Lymph % (Auto) 30.0 % 11/04/22 15:08 [place] % (Auto) 14.1 % 11/04/22 15:08 Eos % (Auto) 3.7 % 11/04/22 15:08 Baso % (Auto) 0.5 % 11/04/22 15:08 Neut # (Auto) 3.77 10^3/uL (1.8-7.7) 11/04/22 15:08 Lymph # (Auto) 2.2 10^3/uL (0.8-4.8) 11/04/22 15:08 [place] # (Auto) 1.0 10^3/uL (0.2-0.9) H 11/04/22 15:08 Eos # (Auto) 0.3 10^3/uL (0.0-0.8) 11/04/22 15:08 Baso # (Auto) 0.0 10^3/uL (0.0-0.1) 11/04/22 15:08 Nucleated RBC % (auto) 0 % 11/04/22 15:08 Nucleated RBCs # 0.0 /100WBC 11/04/22 15:08 Sodium 139 mmol/L (136-145) 11/04/22 15:08 Potassium 4.2 mmol/L (3.5-5.1) 11/04/22 15:08 Chloride 105 mmol/L (98-107) 11/04/22 15:08 Carbon Dioxide 25 mmol/L (22-29) 11/04/22 15:08 Anion Gap 13.2 (5-19) 11/04/22 15:08 BUN 18 mg/dL (6-20) 11/04/22 15:08 Creatinine 0.8 mg/dL (0.7-1.2) 11/04/22 15:08 GFR Calculation 109.4 mL/min (90-130) 11/04/22 15:08 Glucose 92 mg/dL (65-115) 11/04/22 15:08 Calculated Osmolality 290 mOsm/kg (285-295) 11/04/22 15:08 Calcium 8.9 mg/dL (8.5-10.5) 11/04/22 15:08 Urine Color Yellow (Yellow) 11/04/22 16:16 Urine Appearance Clear (CLEAR) 11/04/22 16:16 Urine pH 5 (5-7) 11/04/22 16:16 Ur Specific [place] 1.025 (1.005-1.030) 11/04/22 16:16 Urine Protein Neg (Negative) 11/04/22 16:16 Urine Glucose (UA) Norm (Normal) 11/04/22 16:16 Urine Ketones Negative (Negative) 11/04/22 16:16 Urine Blood 3+ (Negative) H 11/04/22 16:16 Urine Nitrate Negative (Negative) 11/04/22 16:16 Urine Bilirubin Neg (Negative) 11/04/22 16:16 Urine Urobilinogen Neg mg/dL (Negative) 11/04/22 16:16 Ur Leukocyte Esterase Trace (Negative) H 11/04/22 16:16 Urine RBC 15-25 /hpf (0-2) H 11/04/22 16:16 Urine WBC 5-10 /hpf (0-5) H 11/04/22 16:16 Ur Squamous Epith Cells 10-15 /hpf (0-5) H 11/04/22 16:16 Amorphous Sediment Not Reportable 11/04/22 16:16 Urine Bacteria None /hpf (NONE) 11/04/22 16:16 Discharge Plan Discharge Patient Disposition: Home Clinical Impression: Hematuria Condition: Stable Prescriptions: New Bactrim DS 800-160 mg tablet 1 tab PO BID 7 Days Qty: 14 0RF tamsulosin 0.4 mg capsule 0.4 mg PO DAILY Qty: 30 0RF No Action atorvastatin 10 mg tablet 10 mg PO BEDTIME Aspir-81 81 mg Tablet,Delayed Release (Dr/Ec) 81 mg PO DAILY amlodipine-benazepril 5-10 mg capsule 1 cap PO DAILY testosterone cypionate 200 mg/mL oil 200 mg IM Q14D Discharge Orders: Discharge ED (Routine); Ordered 11/04/22 Ordered By: Hieu Redmond Referrals: Ann-Marie Steven MD [Primary Care Provider] - Discharge Diet: Usual diet Discharge Activity: Resume usual activity Patient Instructions: Opioid Safety, Pain Management Activity Restrictions/Additional Instructions: You were seen today for blood in your urine. There is a moderate amount of blood in your urine but the CT of your abdomen ureters and bladder was unremarkable. Recommend you take a course of antibiotics. Follow-up with your primary care doctor within the next week for repeat urinalysis. If the hematuria persist you may need referral to the urologist. Coding Level of Care Code ED Operating Room Technologist for Chg Fwd Exam Comprehensive
[2022-11-04 15:38] LABS: Basophils % 0.5 %; Eosinophils # 0.3 10^3/uL (0.0-0.8); Eosinophils % 3.7 %; Hematocrit 42.5 % (42.0-52.0); Hemoglobin 14.2 g/dL (11.7-16.6); Lymphocytes # 2.2 10^3/uL (0.8-4.8); Mean Corpuscular HGB Conc 33.4 g/dL (30.0-36.0); Mean Corpuscular Hemoglobin 28.6 pg (28.0-34.0); Mean Corpuscular Volume 85.7 fl (80-94); Monocytes % 14.1 %; Neutrophils # 3.77 10^3/uL (1.8-7.7); Neutrophils % 51.4 %; Nucleated Red Blood Cells % 0 %; Platelet Count 226 10^3/cmm (130-400); Red Blood Count 4.96 10^6/uL (4.1-5.3); Red Cell Distribution Width 13.3 % (12.1-15.1); White Blood Count 7.3 10^3/uL (4.0-10.0)
[2022-11-04 15:48] LABS: Blood Urea Nitrogen 18 mg/dL (6-20); Calcium 8.9 mg/dL (8.5-10.5); Carbon Dioxide 25 mmol/L (22-29); Chloride 105 mmol/L (98-107); Glomerular Filtration Rate 109.4 mL/min (90-130); Glucose 92 mg/dL (65-115); Osmolality Calculated 290 mOsm/kg (285-295); Sodium 139 mmol/L (136-145)
[2022-11-04 16:06] LABS: Anion Gap 13.2 (5-19); Potassium 4.2 mmol/L (3.5-5.1)
--- NOTE | 2022-11-04 16:06 | CTR_ITS ---
PROCEDURE INFORMATION: Exam: CT Abdomen And Pelvis Without Contrast Exam date and time: 11/04/2022 5:27 PM Age: 37 years old Clinical indication: Other: Hematuria TECHNIQUE: Imaging protocol: Computed tomography of the abdomen and pelvis without contrast. Axial, coronal and sagittal reformatted images were created and reviewed. Radiation optimization: All CT scans at this facility use at least one of these dose optimization techniques: automated exposure control; mA and/or kV adjustment per patient size (includes targeted exams where dose is matched to clinical indication); or iterative reconstruction. Other protocol: This patient has received 4 known CTs and 0 known cardiac nuclear medicine studies in the 12 months prior to the current study. COMPARISON: CT chest abd pel wo con 02/12/2022 7:18 AM RADIATION DOSE METRICS: Total DLP (mGy-cm): 986.63 FINDINGS: Lungs: Right lower lobe calcified granuloma. Liver: Mild hepatomegaly. Gallbladder and bile ducts: No radiodense gallstones. No biliary ductal dilatation. Pancreas: Unremarkable. Spleen: Mild splenomegaly. Adrenal glands: Normal. No mass. Kidneys and ureters: 1.3 cm exophytic right renal cyst (no follow-up is indicated based on the imaging appearance). No radiodense calculi. No hydronephrosis. Stomach and bowel: Moderate amount of retained stool in the colon. No obstruction. No bowel wall thickening. No pneumatosis. Appendix: Normal. Intraperitoneal space: No free fluid. No organized fluid collection. No free air. Vasculature: Unremarkable. No aneurysm. Lymph nodes: Calcified right hilar lymph nodes, consistent with prior granulomatous disease. Urinary bladder: Unremarkable as visualized. Reproductive: Unremarkable. Bones/joints: No acute osseous abnormality. Mild degenerative changes. Soft tissues: Unremarkable. CT/CT kidney stone [id number] IMPRESSION: 1. Limited noncontrast examination without CT evidence of acute intra-abdominal or pelvic pathology. 2. Additional findings, as above. COMMENTS: Consistent with the [place] [employer]'s Incidental Findings Committee white paper (J Am Natalia Radiol 2018): Any incidental renal lesion less than 1 cm or classified as too small to characterize, or any incidental cystic renal lesion characterized as simple-appearing, is likely benign. No follow-up imaging is recommended for these lesions per consensus recommendations based on imaging criteria.
[2022-11-04 16:24] LABS: Bilirubin Urine Neg (Negative); Blood Urine 3+ (Negative); Glucose Urine UA Norm (Normal); Ketones Urine Negative (Negative); Nitrate Urine Negative (Negative); Protein Urine Neg (Negative); Specific Gravity, Urine 1.025 (1.005-1.030); Urine Appearance Clear (CLEAR); Urine Color Yellow (Yellow); Urobilinogen Urine Neg (Negative); pH Urine 5 (5-7)
[2022-11-04 16:25] LABS: Add Urine Microscopic? YES; Leukocyte Esterase Urine Trace (Negative)
[2022-11-04 16:29] VITALS: BP 147/75; PULSE 74; O2SAT 97
[2022-11-04 16:35] LABS: Add Urine Culture? No; RBC Urine 15-25 /hpf (0-2)
--- NOTE | 2022-11-04 17:38 | PC.NURSE ---
DISTRIBUTOR OPERATORBLU AVILA, MADE ME AWARE THAT PT REFUSED TO KEEP BLOOD PRESSURE AND PULSE OX ON WHEN SHE BROUGHT HIM BACK FROM GETTING A SCAN.
== END 2022-11-04 18:04 | disposition home or self-care (01) ==
PROVIDERS: Emergency Provider Family Medicine; PCP Internal Medicine
DX: R31.9 Hematuria, unspecified (principal); Z79.82 Long term (current) use of aspirin; F17.210 Nicotine dependence, cigarettes, uncomplicated
CPT/HCPCS: 74018; 74176; 80048; 81001; 85025; 99285

== ENCOUNTER 2023-02-14 04:37 | Inpatient (IN) | payer MEDICAID, SELFPAY ==
[2023-02-14] VITALS (44 sets, daily range): BP systolic 87–177; BP diastolic 44–98; PULSE 72–107; RESP 11–22; TEMP 36.9–37.1; O2SAT 89–97; BMI 37.3
--- NOTE | 2023-02-14 04:40 | ECG_ITS ---
[facility] Test Date: 2023-02-14 Pat Name: Adama Thompson Department: Room: Gender: Male Inhalation Therapist: : 1985 Requested By: Bonilla Sorenson Order Number: [id number] Art MD: Daly Herndon M.D. Measurements Intervals [place] Rate: 87 P: 59 AR: 160 QRS: 92 QRSD: 91 T: 53 QT: 334 QTc: 404 Interpretive Statements SINUS RHYTHM BORDERLINE RIGHT AXIS DEVIATION [QRS AXIS > 90] Compared to ECG 09/16/2022 09:23:32 No significant changes Electronically Signed On 02-14-2023 21:07:20 CDT by Daly Herndon M.D. [email or web address]
[2023-02-14] MEDS: sodium chloride 0.9% 1,000 ML 999 ML IV (04:55)
--- NOTE | 2023-02-14 05:20 | W.ED.OVERDOS ---
HPI - Overdose General: Chief Complaint: Overdose Stated Complaint: OD Time Seen by Provider: 02/14/23 04:39 Source: patient History of Present Illness: 37-year-old male patient who called an ambulance himself after taking a stated 20,000 mg of Depakote. They were his own medication per patient. He stated it is better than living . This was an intentional overdose. He is feeling somewhat drowsy, and mildly nauseated. He is otherwise asymptomatic. complaint: intentional overdose Onset (ago): minute(s) (60) Timing confirmed by: other Intent: other How Overdose Was Discovered: called 911 Associated symptoms: depression, nausea/vomiting and lethargy Treatments Prior to Arrival: none Review of Systems Const: Denies: fever(s) Card: Denies: chest pain Resp: Denies: dyspnea GI: Reports: nausea; Denies: abdominal pain or vomiting Musc: Reports: neck pain (Chronic) and back pain (Chronic) Neuro: Denies: headache(s) Psych: Reports: depression and suicidal ideation PFS ED PFSH: Medical History Erectile dysfunction Tadalafil prescribed September 2021. History of kidney stones Low testosterone in male Lower urinary tract symptoms OCD (obsessive compulsive disorder) Psychiatric care Surgical History History of tonsillectomy and adenoidectomy Family History Father , at age 68 Alcoholic Mother Cancer BREAST CANCER Sister Cancer Other CAD (coronary artery disease) Diabetes Hypertension Social History Smoking and tobacco status: current every day smoker Alcohol intake: never Substance/Drug Use: unknown Adopted: No Caregiver/support person: No Marital status: Current occupational status: unemployed Physical Exam Const: COMMON NORMALS: no acute distress GENERAL APPEARANCE: cooperative; not ill appearing and not frail appearing HENMT: COMMON NORMALS: normocephalic, atraumatic and Normal external nose present HEAD & SCALP: normocephalic and atraumatic FACE & SINUS: normal facial exam and face symmetric NOSE: Normal external nose present Eye: COMMON NORMALS: Equal, round and reactive pupils present and EOMs intact bilaterally PUPIL: Yes Equal, round and reactive pupils present Neck/C-Spine: GENERAL: Yes trachea midline Chest: CHEST: Yes Symmetrical chest wall rise Resp: COMMON NORMALS: normal respiratory effort, No retractions, No use of accessory muscles and clear to auscultation bilaterally AUSCULTATION: clear to auscultation bilaterally Cardio: COMMON NORMALS: regular rate and regular rhythm RATE: regular rate RHYTHM: regular rhythm GI: COMMON NORMALS: Normal to inspection, nondistended, normoactive bowel sounds present Extremity: GENERAL: Yes edema (1+) Neuro: [place] COMA SCALE: document GCS findings [place] coma scale eye opening: Spontaneous [place] coma scale verbal response: Orientated [place] coma scale motor response: Obey commands [place] coma scale total score: 15 SENSORY EXAM: Yes extremities (intact) Psych: COMMON NORMALS: speech normal SPEECH: Yes normal speech Course Vital Signs: Vital signs: Vital Signs Temperature 98.7 F 02/14/23 04:41 Pulse Rate 96 02/14/23 04:41 Respiratory Rate 16 02/14/23 04:41 Blood Pressure 151/78 02/14/23 04:41 Pulse Oximetry 92 02/14/23 04:41 Oxygen Delivery Me thod Room Air 02/14/23 04:41 MDM - Overdose Medical Decision Making Affidavits filled out by law enforcement. Will be placed under 96-hour hold. He will likely require ICU admission. Medically currently stable. Blood pressure 150/77 saturations 95% on room air heart rate 94 respirations 14. 96-hour paperwork has been filed. Patient remained stable. Valproic acid level is still pending. Ammonia levels normal. He will be checked out to the oncoming physician for admission. Lab Data 02/14/23 05:20 02/14/23 05:20 Laboratory Results WBC 9.8 10^3/uL (4.0-10.0) 02/14/23 05:20 RBC 5.48 10^6/uL (4.1-5.3) H 02/14/23 05:20 Hgb 15.9 g/dL (11.7-16.6) 02/14/23 05:20 Hct 48.6 % (42.0-52.0) 02/14/23 05:20 MCV 88.7 fl (80-94) 02/14/23 05:20 MCH 29.0 pg (28.0-34.0) 02/14/23 05:20 MCHC 32.7 g/dL (30.0-36.0) 02/14/23 05:20 RDW 13.2 % (12.1-15.1) 02/14/23 05:20 Plt Count 232 10^3/cmm (130-400) 02/14/23 05:20 MPV 9.8 fL (7.4-10.4) 02/14/23 05:20 Neut % (Auto) 46.5 % 02/14/23 05:20 Lymph % (Auto) 37.6 % 02/14/23 05:20 [place] % (Auto) 12.2 % 02/14/23 05:20 Eos % (Auto) 2.8 % 02/14/23 05:20 Baso % (Auto) 0.5 % 02/14/23 05:20 Neut # (Auto) 4.56 10^3/uL (1.8-7.7) 02/14/23 05:20 Lymph # (Auto) 3.7 10^3/uL (0.8-4.8) 02/14/23 05:20 [place] # (Auto) 1.2 10^3/uL (0.2-0.9) H 02/14/23 05:20 Eos # (Auto) 0.3 10^3/uL (0.0-0.8) 02/14/23 05:20 Baso # (Auto) 0.1 10^3/uL (0.0-0.1) 02/14/23 05:20 Nucleated RBC % (auto) 0 % 02/14/23 05:20 Nucleated RBCs # 0.0 /100WBC 02/14/23 05:20 Ammonia 39 umol/L (16-60) 02/14/23 05:20 Valproic Acid 71.8 ug/mL (50-100) 02/14/23 05:20 Discharge Plan Discharge Patient Disposition: Admitted As Inpatient Clinical Impression: Intentional overdose Condition: Fair Coding Level of Care Code ED Revenue Enforcement Collection Agent for Noe Osorio
[2023-02-14 05:37] LABS: Basophils # 0.1 10^3/uL (0.0-0.1); Basophils % 0.5 %; Eosinophils # 0.3 10^3/uL (0.0-0.8); Eosinophils % 2.8 %; Hematocrit 48.6 % (42.0-52.0); Hemoglobin 15.9 g/dL (11.7-16.6); Lymphocytes # 3.7 10^3/uL (0.8-4.8); Lymphocytes % 37.6 %; Mean Corpuscular HGB Conc 32.7 g/dL (30.0-36.0); Mean Corpuscular Volume 88.7 fl (80-94); Mean Platelet Volume 9.8 fL (7.4-10.4); Monocytes # 1.2 10^3/uL (0.2-0.9); Monocytes % 12.2 %; Neutrophils # 4.56 10^3/uL (1.8-7.7); Neutrophils % 46.5 %; Nucleated Red Blood Cells % 0 %; Platelet Count 232 10^3/cmm (130-400); Red Blood Count 5.48 10^6/uL (4.1-5.3); Red Cell Distribution Width 13.2 % (12.1-15.1); White Blood Count 9.8 10^3/uL (4.0-10.0)
[2023-02-14 05:58] LABS: Ammonia 39 umol/L (16-60)
[2023-02-14 06:24] LABS: Add Urine Microscopic? NO; Charge for UA Resulting for Rev
[2023-02-14 06:25] LABS: Alanine Aminotransferase 15 U/L (0-41); Albumin Level 4.2 g/dL (3.5-5.2); Alkaline Phosphatase 66 U/L (40-130); Anion Gap 18.7 (5-19); Aspartate Amino Transferase 11 U/L (0-40); Blood Urea Nitrogen 20 mg/dL (6-20); Calcium 9.3 mg/dL (8.5-10.5); Carbon Dioxide 24 mmol/L (22-29); Chloride 100 mmol/L (98-107); Globulin 2.5 g/dL (1.3-4.6); Glomerular Filtration Rate 109.4 mL/min (90-130); Glucose 110 mg/dL (65-115); Osmolality Calculated 291 mOsm/kg (285-295); Potassium 3.7 mmol/L (3.5-5.1); Sodium 139 mmol/L (136-145); Total Bilirubin 0.3 mg/dL (0.15-1.2); Total Protein 6.7 g/dL (6.6-8.7); Valproic Acid Level 71.8 ug/mL (50-100)
[2023-02-14 06:32] LABS: Urine Appearance Clear (CLEAR); Urine Color Yellow (Yellow); pH Urine 6 (5-7)
[2023-02-14 06:33] LABS: Bilirubin Urine Neg (Negative); Blood Urine Neg (Negative); Glucose Urine UA Norm (Normal); Ketones Urine 1+ (Negative); Leukocyte Esterase Urine Negative (Negative); Nitrate Urine Negative (Negative); Protein Urine Neg (Negative); Urobilinogen Urine Norm (Negative)
[2023-02-14 06:43] LABS: Acetaminophen < 5.0 ug/mL (10-30); Alcohol Level < 10 mg/dL (0-10); Salicylate < 0.3 mg/dL (3-10)
[2023-02-14 06:56] LABS: Amphetamines Screen Urine Negative (Negative); Barbiturates Screen Urine Negative (Negative); Benzodiazepines Screen Urine Negative (Negative); Cocaine Screen Urine Negative (Negative); Opiate Screen Urine Negative (Negative); PCP Screen Urine Negative (Negative); THC Screen Urine Negative (Negative)
--- NOTE | 2023-02-14 07:37 | PC.PHAR ---
pt brought in some medications-pt states he isnt suppose to be taking divalproex dr 500mg ext shows rx filled 01/05/23 30d/s no rx bottle-triage note states pt took divalproex dr 20,000mg today around 4 am-ext also shows lexapro 20mg daily filled 01/05/23 pt states he is no longer taking that-testosterone cypionate 200mg/ml filled 01/28/23 and emgality pen 120mg/ml q30d filled 02/01/23 30d/s were not with the pts medications-pt states he also takes tylenlol prn no bottle-notes are made in the pharmacy comments
--- NOTE | 2023-02-14 12:00 | PC.NURSE ---
Pt arrived to the ICU via bed on room air around 0830 this AM. Patient was able to transfer self to ICU bed and was able to answer all questions appropriately. Pt responds to verbal commands. Small tremors noted in both hands occasionally. Medications placed in Pyxis and clothing placed at nurses station.
--- NOTE | 2023-02-14 12:05 | PM.HP ---
Providers/Chief Complaint Admitting Physician: Delta Monique MD Primary Care Provider: Ann-Marie Steven MD Chief Complaint: OD History of Present Illness Adama Thompson is a 37 year old male with a past medical history significant for depression with history of prior intentional drug overdose, marijuana dependence, methamphetamine abuse, nephrolithiasis, low testosterone, and obsessive compulsive disorder who presents to the emergency department via EMS after calling and reporting that he took 20,000 mg of Depakote. He is unsure of the formulation. Patient is reportedly prescribed Depakote per chart review and report. He does endorse drowsiness but awakes. Denies fevers, chills,nausea or emesis. Review of Systems Narrative: A complete review of systems was obtained and is negative except as stated in HPI. Medications/Allergies Home Medications Medication Instructions Recorded Confirmed Last Taken Type amlodipine 5 mg-benazepril 10 mg 1 cap PO DAILY 11/04/22 02/14/23 11/03/22 History capsule aspirin 81 mg tablet,delayed 81 mg PO DAILY 11/04/22 02/14/23 11/03/22 History release atorvastatin 10 mg tablet 10 mg PO BEDTIME 11/04/22 02/14/23 11/03/22 History testosterone cypionate 200 mg/mL 200 mg IM Q14D #10 mL 12/23/22 02/14/23 Unknown Rx intramuscular oil acetaminophen 500 mg tablet 1,000 mg PO Q6H PRN Pain 02/14/23 02/14/23 Unknown History divalproex 500 mg tablet,delayed 500 mg PO .SEE PHARMACY COMMEN 02/14/23 02/14/23 Unknown History release galcanezumab-gnlm 120 mg/mL 120 mg SUBCUT Q30D 02/14/23 02/14/23 Unknown History subcutaneous pen injector (Emgality Pen) magnesium oxide 400 mg (241.3 mg 400 mg PO DAILY 02/14/23 02/14/23 Unknown History magnesium) tablet paliperidone 6 mg tablet,extended 6 mg PO DAILY 02/14/23 02/14/23 Unknown History release 24 hr prochlorperazine maleate 10 mg See Rx Instructions .Route .COMPLEX 02/14/23 02/14/23 Unknown History tablet Allergies Allergy/AdvReac Type Severity Reaction Status Date / Time naproxen Allergy ALGY-Difficulty Verified 02/14/23 04:51 Breathing NSAIDS (Non-Steroidal Allergy ALGY-Anaphy Verified 02/14/23 04:51 Anti-Inflamma laxis [facility] AdvReac ADR-Vomitin Verified 02/14/23 04:51 g PFSH Acute PFSH: Medical History (Updated 02/14/23 @ 22:10 by Delta Monique MD) Erectile dysfunction Tadalafil prescribed September 2021. History of kidney stones Low testosterone in male Lower urinary tract symptoms Migraine headache with aura OCD (obsessive compulsive disorder) Psychiatric care Shoulder pain Tooth infection Surgical History History of tonsillectomy and adenoidectomy Family History Father , at age 68 Alcoholic Mother Cancer BREAST CANCER Sister Cancer Other CAD (coronary artery disease) Diabetes Hypertension Social History Smoking and tobacco status: current every day smoker Alcohol intake: never Substance/Drug Use: unknown Adopted: No Caregiver/support person: No Marital status: Current occupational status: unemployed Vitals/I&O/Wt Last Vital Signs Temp 98.7 F 02/14/23 04:41 Pulse 94 02/14/23 11:00 Resp 11 L 02/14/23 11:00 BP 107/63 02/14/23 11:00 Pulse Ox 94 02/14/23 11:00 O2 Del Method Nasal Cannula 02/14/23 10:45 O2 Flow Rate 2 02/14/23 10:45 02/13/23 02/14/23 02/14/23 22:59 06:59 14:59 Intake Total 1000 / 1000 Balance 1000 / 1000 Weight last 48 hrs Weight 124.738 kg Physical Exam Narrative: General: Patient is drowsy. Head: Atraumatic. Neck: No JVD. Cardiovascular: No gallops. No murmurs. Lungs: Decreased breath sounds in bilateral bases. No accessory muscle use. On NC. Skin: No jaundice. No rashes. Abdomen: Normal bowel sounds, abdomen soft and nontender. PEG. Genito Urinary: Genital exam not performed since complaints not related. Rectal: Rectal exam not performed since no symptoms indicated blood loss. Extremities: No cyanosis or clubbing. Musculoskeletal: No overt joint deformity. Neurological: Moves all 4 extremities. No myoclonus. Data 02/14/23 05:20 02/14/23 05:20 A&P Assessment and plan (1) Intentional overdose: Intentional drug overdose with reported 20,000 mg of Depakote Poison control contacted by ED, appreciate recommendations Status post IV fluids Encourage oral intake Trend Depakote levels until peak and normalization Further interventions and work up should he develop signs of encephalopathy Telemetry monitoring Sitter Suicide precautions Psych consult Consider whether testosterone supplementation could be contributing to recurrent overdoses and related behaviors (2) Depression: Psych consult Hold home Depakote On paliperidone, defer initiation to psych (3) Hypertension: Continue home antihypertensives or formulary alternatives (4) Methamphetamine abuse: Would benefit from cessation May have withdrawal side effects (5) Anxiety: Psych consult (6) Marijuana dependence: Would benefit from cessation Plan DVT ppx: Low risk Code Status: Full Code Attestations Medical Necessity Statement*: Patient presents with intentional drug overdose with expected work up and treatment to cross two midnights. Critical Care Time: The high probability of a clinically significant, sudden or life threatening deterioration of the patient's hepatic, GI, neuro system(s) required my full and direct attention, intervention and personal management. The critical care time is as shown. This time is in addition to time spent performing any reported procedures but includes the following: [x] Data and vital sign review and interpretation [x] Patient assessment, examination and intervention [x] Documentation [x] Medication orders and management Critical Care Time (min): 40 Coding Level of Care Code Acute Code for [facility] Fwd Diagnoses Intentional overdose T50.902A Depression F32.A Hypertension I10 Methamphetamine abuse F15.10 Anxiety F41.9 Marijuana dependence F12.20
[2023-02-14 13:21] LABS: Valproic Acid Level 144.7 ug/mL (50-100)
[2023-02-14] MEDS: nicotine 2 mg Gum BUCCAL (15:23)
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
--- NOTE | 2023-02-14 18:30 | PC.NURSE ---
Medications, cigarettes, and senior label specialist were placed in the pyxis. Clothing, cell phone, shoes and keys placed at nurses station.
[2023-02-14 21:18] LABS: Valproic Acid Level 84.5 ug/mL (50-100)
[2023-02-15] VITALS (24 sets, daily range): BP systolic 135–171; BP diastolic 75–98; PULSE 72–90; RESP 10–27; TEMP 36.5–36.9; O2SAT 90–100; BMI 37.3
[2023-02-15 01:54] LABS: Valproic Acid Level 60.2 ug/mL (50-100)
[2023-02-15] MEDS: nicotine 2 mg Gum BUCCAL ×5 (06:23→20:55)
[2023-02-15 06:39] LABS: Basophils # 0.1 10^3/uL (0.0-0.1); Basophils % 0.6 %; Eosinophils # 0.3 10^3/uL (0.0-0.8); Eosinophils % 3.1 %; Hematocrit 48.4 % (42.0-52.0); Hemoglobin 15.8 g/dL (11.7-16.6); Lymphocytes # 2.4 10^3/uL (0.8-4.8); Lymphocytes % 29.8 %; Mean Corpuscular HGB Conc 32.6 g/dL (30.0-36.0); Mean Corpuscular Hemoglobin 28.9 pg (28.0-34.0); Mean Corpuscular Volume 88.6 fl (80-94); Mean Platelet Volume 9.3 fL (7.4-10.4); Monocytes # 0.7 10^3/uL (0.2-0.9); Monocytes % 8.7 %; Neutrophils # 4.69 10^3/uL (1.8-7.7); Neutrophils % 57.7 %; Nucleated Red Blood Cells % 0 %; Platelet Count 212 10^3/cmm (130-400); Red Blood Count 5.46 10^6/uL (4.1-5.3); Red Cell Distribution Width 13.1 % (12.1-15.1); White Blood Count 8.1 10^3/uL (4.0-10.0)
[2023-02-15 06:59] LABS: Ammonia 51 umol/L (16-60)
[2023-02-15 06:59] LABS: Alanine Aminotransferase 12 U/L (0-41); Albumin Level 3.8 g/dL (3.5-5.2); Alkaline Phosphatase 58 U/L (40-130); Anion Gap 12.1 (5-19); Aspartate Amino Transferase 11 U/L (0-40); Blood Urea Nitrogen 13 mg/dL (6-20); Calcium 8.7 mg/dL (8.5-10.5); Carbon Dioxide 25 mmol/L (22-29); Chloride 103 mmol/L (98-107); Globulin 2.4 g/dL (1.3-4.6); Glomerular Filtration Rate 127.6 mL/min (90-130); Glucose 92 mg/dL (65-115); Osmolality Calculated 282 mOsm/kg (285-295); Phosphorus 3.5 mg/dL (2.5-4.5); Potassium 4.1 mmol/L (3.5-5.1); Sodium 136 mmol/L (136-145); Total Bilirubin 0.7 mg/dL (0.15-1.2); Total Protein 6.2 g/dL (6.6-8.7); Valproic Acid Level 52.4 ug/mL (50-100)
[2023-02-15] MEDS: amlodipine 5 mg Tablet PO (08:53)
[2023-02-15] MEDS: aspirin 81 mg EC Tablet PO (08:53)
[2023-02-15] MEDS: lisinopril 10 mg Tablet PO (08:53)
--- NOTE | 2023-02-15 08:58 | ECG_ITS ---
[facility] Test Date: 2023-02-15 Pat Name: Adama Thompson Department: Room: ICU10 Gender: Male Photographer Lithographic: : 1985 Requested By: Christopher Moya Order Number: [id number] Art MD: Daly Herndon M.D. Measurements Intervals [place] Rate: 75 P: 53 FL: 170 QRS: 93 QRSD: 85 T: 53 QT: 340 QTc: 381 Interpretive Statements SINUS RHYTHM BORDERLINE RIGHT AXIS DEVIATION [QRS AXIS > 90] Compared to ECG 02/14/2023 04:57:09 No significant changes Electronically Signed On 02-16-2023 0:26:31 CDT by Daly Herndon M.D. [id number]
--- NOTE | 2023-02-15 09:51 | USCV_ITS ---
Gracielamorgan Adama Age: 37 Gender: M : 1985 Exam Date: 02/15/2023 10:23 Ordering Phys: Christopher Moya MD Technologist: Isak Hagen Exam Location: [facility] [place] Indication: htn BP: 170 / 80 HR: 80 Rhythm: Sinus Technical Quality: Adequate MEASUREMENTS (Male / Female) Normal Values 2D ECHO LV Diastolic Diameter PLAX 4.8 cm 4.2 - 5.9 / 3.9 - 5.3 cm LV Systolic Diameter PLAX 2.5 cm IVS Diastolic Thickness 1.5 cm 0.6 - 1.0 / 0.6 - 0.9 cm IVS Systolic Thickness 1.8 cm LVPW Diastolic Thickness 1.5 cm 0.6 - 1.0 / 0.6 - 0.9 cm LVPW Systolic Thickness 1.6 cm LVOT Diameter 2.2 cm LV Ejection Fraction 2D Teich 79.9 % LA Diameter 4.6 cm IVC Diameter 2.7 cm M-MODE Aortic Annulus Diameter 4.1 cm LA Ao Ratio MM 1.1 MV E Point Septal Separation 0.9 cm DOPPLER AV Peak Velocity 145.0 cm/s LVOT Peak Velocity 103.0 cm/s AV Area Cont Eq vti 2.6 cm squared AV Area Cont Eq pk 2.7 cm squared MV Area PHT 5.0 cm squared Mitral E to A Ratio 1.2 MV E' Velocity 106.0 cm/s Mitral E to LV E' Septal Ratio 12.6 TR Peak Velocity 161.5 cm/s TR Peak Gradient 10.4 mmHg TV Peak E Velocity 106.0 cm/s Right Atrial Pressure 3.0 mmHg Pulmonary Artery Systolic Pressu 13.4 mmHg RV Acceleration Time 0.2 s FINDINGS Left Ventricle Left ventricle is normal in size. LV systolic function is normal with EF of 55 to 60%. No regional wall motion abnormalities are seen. Right Ventricle Normal in size and function Right Atrium Normal in size Left Atrium Normal in size Mitral Valve Structurally normal mitral valve. Mild mitral regurgitation. Aortic Valve Structurally normal aortic valve. No significant stenosis or regurgitation. Tricuspid Valve Mild tricuspid regurgitation. Insufficient TR jet to calculate RVSP. Pulmonic Valve Not well visualized Pericardium Normal Aorta Normal in size IVC Appears to be normal CONCLUSIONS LV systolic function is normal with EF of 55 to 60% Mild mitral regurgitation Mild tricuspid regurgitation No comparison studies are available Heron Martinez MD (Electronically Signed) Final Date: 15 Feb 2023 17:43 S
[2023-02-15 10:26] LABS: Iron 65 ug/dL (59-158); Percent Saturation 20.8 % (20-50); Total Iron Binding Capacity 312 mcg/dl; Unsaturated Iron Binding 247 ug/dL (112-347); Vitamin B12 381 pg/mL (232-1245)
[2023-02-15] MEDS: paliperidone ER 3 mg Tablet PO (11:28)
--- NOTE | 2023-02-15 13:17 | PM.PN ---
Subjective Subjective: Hospital course, labs appreciated. On examination patient sitting up in chair. No episodes of agitation. Denies any nausea vomiting, headache, dizziness. Complaining of occasional episode of localized chest pain. He thinks he is having an arrhythmia or has had an heart attack in the last few weeks. We discussed in detail that personnel monitor has remained stable and his EKG done today did not show any signs of MS recently. We did discuss that his blood pressure was running on the higher side for which his antihypertensives most likely needs to be adjusted. Vitals/I&O/Wt Last Vital Signs Temp 97.7 F 02/15/23 08:30 Pulse 84 02/15/23 12:33 Resp 10 L 02/15/23 12:33 BP 148/76 02/15/23 12:33 Pulse Ox 100 02/15/23 12:33 O2 Del Method Room Air 02/15/23 12:33 O2 Flow Rate 3 02/15/23 00:00 02/14/23 02/15/23 02/15/23 22:59 06:59 14:59 Intake Total 500 / 1740 840 / 840 Balance 500 / -260 840 / 840 Weight last 48 hrs Weight 124.738 kg Physical Exam Narrative: General: Awake and alert, AOx3, slightly anxious, appropriate eye contact Head: Atraumatic. Neck: No JVD. Cardiovascular: No gallops. No murmurs. Lungs: Decreased breath sounds in bilateral bases. No accessory muscle use. On NC. Skin: No jaundice. No rashes. Abdomen: Normal bowel sounds, abdomen soft and nontender. Genito Urinary: Genital exam not performed since complaints not related. Rectal: Rectal exam not performed since no symptoms indicated blood loss. Extremities: No cyanosis or clubbing. Musculoskeletal: No overt joint deformity. Neurological: Moves all 4 extremities. No myoclonus. Data 02/15/23 06:27 02/15/23 06:27 A&P Assessment and plan (1) Intentional overdose: Intentional drug overdose with reported 20,000 mg of Depakote. Poison control contacted by ED, appreciate recommendations. Check EKG to monitor QTc. Patient has remained stable on personnel monitor, saturating well on room air. Appreciate psych recommendation. Appreciate valproic acid level today. We will repeat in AM. Can be transferred to neuropsych unit for further monitoring. (2) Depression: Appreciate psych consult Hold home Depakote On paliperidone, defer initiation to psych. (3) Hypertension: Goal blood pressure less than 140/90 MNG. Increase dose of amlodipine to 10 mg daily. Continue with lisinopril at 10 mg daily which is equal to home dose. Uptitrate medications as per goal blood pressures. Check echocardiogram to rule out cardiomyopathy. (4) Anxiety: Psych consult (5) Marijuana dependence: Would benefit from cessation. Discussed in detail. Patient will think about the same. (6) Methamphetamine abuse: Would benefit from cessation May have withdrawal side effects. Continue to monitor. Drug screen on admission negative for amphetamines. (7) Suicidal ideation: Plan DVT ppx: Low risk Code Status: Full Code Patient is stable from medicine point of view transferred to Neuropsych Unit. We will continue to follow. Attestations Medical Necessity Statement*: Requires further hospitalization for management of suicidal ideation and attempt with Depakote overdose Diagnoses Intentional overdose T50.902A Depression F32.A Hypertension I10 Anxiety F41.9 Marijuana dependence F12.20 Methamphetamine abuse F15.10 Suicidal ideation R45.851
--- NOTE | 2023-02-15 14:30 | PC.NURSE ---
Transfer Note Patient transferred to NPU from ICU via wheelchair. Handoff report given to Sonia. Patient oriented to environment and equipment. Covering service notified. Orders reviewed and will continue to monitor. Patient transferred with NT and security. Upon transfer patient is alert/oriented x4 on room air. No wounds or skin issues noted at this time. All IV's removed upon transfer. All patient belongings sent to NPU.
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
[2023-02-15] MEDS: paliperidone ER 6 mg Tablet PO (17:56)
[2023-02-15] MEDS: acetaminophen 500 mg Tablet 1000 MG PO (18:58)
[2023-02-15] MEDS: prochlorperazine 10 mg Tablet PO (19:01)
[2023-02-15] MEDS: atorvastatin 40 mg Tablet PO (20:45)
[2023-02-16] MEDS: nicotine 2 mg Gum BUCCAL ×7 (03:53→21:07)
[2023-02-16] MEDS: acetaminophen 500 mg Tablet 1000 MG PO ×3 (03:53→14:23)
[2023-02-16 04:22] VITALS: BP 126/76; PULSE 83; RESP 20; TEMP 36.7; O2SAT 93
[2023-02-16] MEDS: magnesium oxide 400 mg tablet PO (09:06)
[2023-02-16] MEDS: paliperidone ER 3 mg Tablet PO (09:06)
[2023-02-16] MEDS: lisinopril 10 mg Tablet PO (09:06)
[2023-02-16] MEDS: amlodipine 10 mg Tablet PO (09:06)
[2023-02-16] MEDS: prochlorperazine 10 mg Tablet PO ×2 (09:06→14:23)
[2023-02-16] MEDS: aspirin 81 mg EC Tablet PO (09:06)
[2023-02-16] MEDS: paliperidone ER 6 mg Tablet PO (09:06)
[2023-02-16 10:11] LABS: Basophils % 0.3 %; Eosinophils # 0.3 10^3/uL (0.0-0.8); Eosinophils % 2.7 %; Hematocrit 49.2 % (42.0-52.0); Hemoglobin 16.4 g/dL (11.7-16.6); Lymphocytes # 2.6 10^3/uL (0.8-4.8); Lymphocytes % 26.3 %; Mean Corpuscular HGB Conc 33.3 g/dL (30.0-36.0); Mean Corpuscular Hemoglobin 29.8 pg (28.0-34.0); Mean Corpuscular Volume 89.3 fl (80-94); Mean Platelet Volume 9.5 fL (7.4-10.4); Monocytes # 0.8 10^3/uL (0.2-0.9); Monocytes % 8.4 %; Neutrophils # 6.12 10^3/uL (1.8-7.7); Nucleated Red Blood Cells % 0 %; Platelet Count 229 10^3/cmm (130-400); Red Blood Count 5.51 10^6/uL (4.1-5.3); Red Cell Distribution Width 12.8 % (12.1-15.1); White Blood Count 9.9 10^3/uL (4.0-10.0)
[2023-02-16 10:27] LABS: Valproic Acid Level 22.1 ug/mL (50-100)
[2023-02-16 10:31] LABS: Alanine Aminotransferase 12 U/L (0-41); Albumin Level 4.3 g/dL (3.5-5.2); Alkaline Phosphatase 63 U/L (40-130); Anion Gap 15.2 (5-19); Aspartate Amino Transferase 9 U/L (0-40); Blood Urea Nitrogen 15 mg/dL (6-20); Carbon Dioxide 26 mmol/L (22-29); Chloride 99 mmol/L (98-107); Globulin 2.5 g/dL (1.3-4.6); Glomerular Filtration Rate 109.4 mL/min (90-130); Glucose 91 mg/dL (65-115); Osmolality Calculated 282 mOsm/kg (285-295); Potassium 4.2 mmol/L (3.5-5.1); Sodium 136 mmol/L (136-145); Total Bilirubin 0.4 mg/dL (0.15-1.2); Total Protein 6.8 g/dL (6.6-8.7)
[2023-02-16 10:33] LABS: Estmated Average Glucose 103; Hemoglobin A1C 5.2 % (4.0-6.0)
[2023-02-16 10:35] LABS: Chol HDL Ratio 4.24 mg/dL (1.0-5.00); Cholesterol 140 mg/dL (0-200); HDL Cholesterol 33 mg/dL (60-100); LDL Cholesterol Calculated 78 mg/dL (50-129); Triglycerides 145 mg/dL (0-150); VLDL Cholestrol Calculation 29 mg/dL (0-30)
[2023-02-16 10:52] LABS: Folate Level > 20.0 ng/mL (4.5-32.2)
[2023-02-16 14:00] VITALS: BP 108/70; PULSE 81; RESP 18; TEMP 36.6; O2SAT 94
--- NOTE | 2023-02-16 16:09 | W.PM.NPUPNS ---
Subjective NPU Subjective: Patient is a 37-year-old white male with a history of migraine headaches admitted with an overdose on Depakote with a history of poor impulse control decreased need for sleep suicidal ideation and extreme intense anger outburst. Patient had denied any suicidal or homicidal thoughts. He had reported having been impulsive and stated that he had had an argument with his . He continued to roam the hallway in a somewhat brooding fashion while interacting minimally with others. He did not attend groups. He had reported that he did not wish to be here too long. He had reported that he would prefer not to take another shot when offered up an option of taking Invega intramuscularly once a month. He had reported that he had been having hallucinations even in the absence of using methamphetamine. He had reported a history of good compliance to his psychotropic medications and had reported that he was frequently suspicious of others intention. He had minimized any problems that were occurring at the home environment despite the patient's indicating that she had been stressed and was considering leaving him due to his problems with anger. Mental Status Exam MSE Comments: Patient was a healthy white male who appeared his stated age. He showed evidence of poor frustration tolerance and appeared somewhat hostile to discussing issues that led to his hospitalization. He had asked a few times when the sports writer of this note had indicated some information provided by others he stated who told you that despite the sports writer having received this information directly from the patient on his admission initial assessment. His mood was described as fine. His affect was intense although it appeared at times flat. His impulse control is poor. His insight is minimal. His judgment is poor. His recent remote memory were grossly intact. He was alert and oriented to person place and time. He minimized any suicidal or homicidal ideation. There is no clear evidence of delusional thinking. Vitals/I&O/Wt Last Vital Signs Temp 97.8 F 02/16/23 14:00 Pulse 81 02/16/23 14:00 Resp 18 02/16/23 14:00 BP 108/70 02/16/23 14:00 Pulse Ox 94 02/16/23 14:00 O2 Del Method Room Air 02/16/23 04:22 O2 Flow Rate 3 02/15/23 20:00 Weight last 48 hrs Weight 124.738 kg Weight 124.738 kg Data NPU 02/16/23 09:34 02/16/23 09:34 A&P Assessment and plan (1) Marijuana dependence: (2) Depression: (3) Psychotic disorder: Plan Is a 37-year-old white male who appears to have had continued mood problems and impulse control issues even in the absence of active substance use who has been without medications to target the symptoms and now in the ICU after overdosing on leftover Depakote in the home. 1.? ? Engage? patient in individual ,milieu, and group therapy ?2. ? We will attempt to gather collateral information from previous providers ?3. ? TO-15 minute checks on the unit. ?4.? Recommend sober living treatment at the highest level of care to which the patient is willing to commit. 5. Medications restarted from outpatient treatment, Continue invega at 9mg daily to target agitation and irritability. Involuntary Hold Information 96 Hour Hold: 96 Hour Involuntary Admission: Yes 96 Hour Hold Ending Date: 02/18/23 96 Hour Hold Ending Time: 06:00 Attestations NPU Medical Necessity Statement*: Patient hospitalization is medically necessary and deemed to be the clinically appropriate intervention at this time. We will monitor and initiate medications while making changes as indicated. His likely length of stay on the neuropsychiatric unit is 4-7 days. Coding Level of Care Code Acute Code for [facility] Fwd Diagnoses Marijuana dependence F12.20 Depression F32.A Psychotic disorder F29
[2023-02-16] MEDS: atorvastatin 40 mg Tablet PO (19:38)
[2023-02-16 22:00] VITALS: BP 150/76; PULSE 81; RESP 16; TEMP 36.4; O2SAT 93
[2023-02-17] MEDS: nicotine 2 mg Gum BUCCAL ×2 (00:56→09:39)
[2023-02-17 05:50] VITALS: BP 126/81; PULSE 94; RESP 15; TEMP 36.4; O2SAT 92
[2023-02-17] MEDS: acetaminophen 500 mg Tablet 1000 MG PO (06:02)
[2023-02-17] MEDS: prochlorperazine 10 mg Tablet PO (06:03)
[2023-02-17] MEDS: paliperidone ER 3 mg Tablet PO (08:53)
[2023-02-17] MEDS: paliperidone ER 6 mg Tablet PO (08:53)
[2023-02-17] MEDS: amlodipine 10 mg Tablet PO (08:54)
[2023-02-17] MEDS: magnesium oxide 400 mg tablet PO (08:54)
[2023-02-17] MEDS: lisinopril 10 mg Tablet PO (08:54)
[2023-02-17] MEDS: aspirin 81 mg EC Tablet PO (08:54)
[2023-02-17 14:00] VITALS: BP 147/90; PULSE 89; RESP 20; TEMP 36.1; O2SAT 95
--- NOTE | 2023-02-17 15:44 | W.PM.NPUDCS ---
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 Screen Negative ng/mL (N egative) 02/14/23 05:44 Ethyl Alcohol < 10 mg/dL (0-10) 02/14/23 05:20 Vitals: Last Vital Signs Temp 97 F L 02/17/23 14:00 Pulse 89 02/17/23 14:00 Resp 20 H 02/17/23 14:00 BP 147/90 02/17/23 14:00 Pulse Ox 95 02/17/23 14:00 O2 Del Method Room Air 02/17/23 05:50 O2 Flow Rate 3 02/15/23 20:00 Discharge Plan Discharge Patient Disposition: Home Condition: Stable Prescriptions: New paliperidone 3 mg Tablet Extended Release 24 Hr 3 mg PO DAILY 30 Days Qty: 30 1RF paliperidone 6 mg Tablet Extended Release 24 Hr 6 mg PO DAILY 30 Days Qty: 30 1RF Continued testosterone cypionate 200 mg/mL oil 200 mg IM Q14D Qty: 10 4RF atorvastatin 10 mg tablet 10 mg PO BEDTIME aspirin 81 mg Tablet,Delayed Release (Dr/Ec) 81 mg PO DAILY amlodipine-benazepril 5-10 mg capsule 1 cap PO DAILY prochlorperazine maleate 10 mg tablet See Rx Instructions .ROUTE .COMPLEX Rx Instructions: TAKE ONE TABLET BY MOUTH DAILY NEEDED FOR 30 DAYS; MAY TAKE UP TO THREE TIMES DAILY divalproex 500 mg tablet,delayed release (DR/EC) 500 mg PO .SEE [facility] magnesium oxide 400 mg (241.3 mg magnesium) tablet 400 mg PO DAILY Emgality Pen 120 mg/mL pen injector 120 mg SUBCUT Q30D acetaminophen 500 mg Tablet 1,000 mg PO Q6H PRN (Reason: Pain) Discontinued paliperidone 6 mg tablet extended release 24 hr 6 mg PO DAILY Discharge Orders: Discharge Order (Routine); Ordered 02/17/23 Ordered By: Damon Cuello Referrals: [facility] [Outside] - 03/08/23 8:30 am Srinivas Tavarez MD [Referring] - 02/24/23 1:30 pm (Hospital follow up) Discharge Diet: Usual diet Discharge Activity: Resume usual activity Patient Instructions: Depression (DC), Opioid Safety, Suicidal Ideation Discharge Attestations NPU Time Spent in Discharge Care*: less than 30 min Specific Discharge Activities: Specific discharge activities: educating patient and documenting/other paperwork Coding Level of Care Code Acute Chg FW DC note Diagnoses Marijuana dependence F12.20 Depression F32.A Psychotic disorder F29
[2023-02-17 16:59] VITALS: BP 147/90; PULSE 89; RESP 20; TEMP 36.1; O2SAT 95
== END 2023-02-17 17:30 | disposition home or self-care (01) | DRG 918 ==
LOC: ER 06:24 → ICU 22:15 → NP 02-16 05:45
PROVIDERS: Student in an Organized Health Care Education/Training Program; Admitting Provider Internal Medicine; Emergency Provider Emergency Medicine; PCP Internal Medicine; Visit Provider Psychiatry & Neurology Psychiatry
DX: T42.6X2A Poisoning by other antiepileptic and sedative-hypnotic drugs, intentional self-harm, initial encounter (principal); R45.851 Suicidal ideations; R40.0 Somnolence; F32.9 Major depressive disorder, single episode, unspecified; F15.10 Other stimulant abuse, uncomplicated; F12.20 Cannabis dependence, uncomplicated; Z87.442 Personal history of urinary calculi; E29.1 Testicular hypofunction; F42.9 Obsessive-compulsive disorder, unspecified; F17.200 Nicotine dependence, unspecified, uncomplicated; I10 Essential (primary) hypertension; F41.1 Generalized anxiety disorder; Z63.0 Problems in relationship with spouse or partner; Z81.8 Family history of other mental and behavioral disorders; R07.9 Chest pain, unspecified; G43.109 Migraine with aura, not intractable, without status migrainosus
CPT/HCPCS: 36415; 80053; 80061; 80164; 80306; 80307; 81003; 82140; 82607; 82746; 83036; 83540; 83550; 83735; 84100; 85025; 93005; 93306; 97165; 99238; 99285; J7030; Q0164

== ENCOUNTER 2023-03-15 21:18 | Emergency (ER) | payer MEDICAID, SELFPAY ==
[2023-03-15 21:22] VITALS: BP 131/77; PULSE 89; RESP 18; TEMP 36.6; O2SAT 96; BMI 38.6
--- NOTE | 2023-03-15 21:29 | ED_ITS ---
HPI - Eye Problem General: Chief complaint: Eye Problems Stated complaint: Something In Left Eye Time Seen by Provider: 03/15/23 21:27 History of Present Illness: 37-year-old male patient comes in today with complaints of foreign body sensation to the left eye. Patient reports that he has had discomfort for about 1 week around his inner tear duct of his left eye. Patient does not recall getting something in his eye. Patient reports it feels like it is behind his tear duct. Minimal to no swelling is noted. Mild redness is noted to the lacrimal area of the left eye. Review of Systems General: Reports: 10 or more systems reviewed and unremarkable except in HPI and below Eyes: Reports: eye discomfort ENMT: Denies: throat pain Resp: Denies: dyspnea GI: Denies: abdominal pain : Denies: difficulty urinating Skin/Breast: Denies: rash PFSH ED PFSH: Medical History (Updated 03/15/23 @ 21:44 by Jamie Martin VOLUNTEER MANAGER) Erectile dysfunction Tadalafil prescribed September 2021. History of kidney stones Hyperlipidemia Low testosterone in male Lower urinary tract symptoms Lumbar disc disease Migraine headache with aura OCD (obsessive compulsive disorder) Psychiatric care Shoulder pain Tooth infection Surgical History History of tonsillectomy and adenoidectomy Family History Father , at age 68 Alcoholic Mother Cancer BREAST CANCER Sister Cancer Other CAD (coronary artery disease) Diabetes Hypertension Social History Smoking and tobacco status: current every day smoker Alcohol intake: never Substance/Drug Use: unknown Adopted: No Caregiver/support person: No Marital status: Current occupational status: unemployed Physical Exam Const: COMMON NORMALS: alert HENMT: COMMON NORMALS: normocephalic HEAD & SCALP: normocephalic Eye: COMMON NORMALS: Equal, round and reactive pupils present CORNEA: Yes fluorescein used (Mild inflammation 9:00) PUPIL: Yes Equal, round and reactive pupils present EYE IMAGES: 1. Erythema of lacrimal area with mild swelling Neck/C-Spine: COMMON NORMALS: full ROM Resp: COMMON NORMALS: normal respiratory effort Cardio: COMMON NORMALS: regular rate RATE: regular rate Back/Pelvis: COMMON NORMALS: thoracic and lumbar spine normal to inspection Extremity: COMMON NORMALS: normal to inspection Neuro: SENSORIUM/ORIENTATION: Yes alert Skin: COMMON NORMALS: turgor normal GENERAL SKIN EXAM: turgor normal Course Vital Signs: Vital signs: Vital Signs Temperature 97.8 F 03/15/23 21:22 Pulse Rate 82 03/15/23 21:37 Respiratory Rate 16 03/15/23 21:37 Blood Pressure 136/89 03/15/23 21:37 Pulse Oximetry 94 03/15/23 21:37 Oxygen Delivery Me thod Room Air 03/15/23 21:22 MDM - Eye Problem Medical Decision Making 37-year-old male patient comes in today for complaints of irritation and foreign body sensation to the left eye. On exam no foreign body was noted. Patient does have mild swelling and redness of the lacrimal caruncle. No purulent drainage is noted. Differential diagnosis includes corneal abrasion, lacrimal duct disorder, calculi of the lacrimal duct, conjunctivitis. No corneal abrasion was noted or corneal scratch. Suspect patient might have a mild infection of the lacrimal duct we will go ahead and treat with Maxitrol eyedrops for the next 7 days and recommend follow-up with eye skin care therapist for further evaluation. Patient reported understanding and agreed to plan. Discharge Plan Discharge Patient Disposition: Home Clinical Impression: Lacrimal disorder Condition: Stable Prescriptions: No Action testosterone cypionate 200 mg/mL oil 200 mg IM Q14D Qty: 10 4RF divalproex 500 mg tablet,delayed release (DR/EC) See Rx Instructions .ROUTE .COMPLEX Qty: 30 0RF Dose Instruction: TAKE ONE TABLET BY MOUTH DAILY Rx Instructions: TAKE ONE TABLET BY MOUTH DAILY, will need follow up for refill atorvastatin 10 mg tablet 10 mg PO BEDTIME aspirin 81 mg Tablet,Delayed Release (Dr/Ec) 81 mg PO DAILY amlodipine-benazepril 5-10 mg capsule 1 cap PO DAILY prochlorperazine maleate 10 mg tablet See Rx Instructions .ROUTE .COMPLEX Rx Instructions: TAKE ONE TABLET BY MOUTH DAILY NEEDED FOR 30 DAYS; MAY TAKE UP TO THREE TIMES DAILY magnesium oxide 400 mg (241.3 mg magnesium) tablet 400 mg PO DAILY Emgality Pen 120 mg/mL pen injector 120 mg SUBCUT Q30D acetaminophen 500 mg Tablet 1,000 mg PO Q6H PRN (Reason: Pain) paliperidone 3 mg Tablet Extended Release 24 Hr 3 mg PO DAILY 30 Days Qty: 30 1RF paliperidone 6 mg Tablet Extended Release 24 Hr 6 mg PO DAILY 30 Days Qty: 30 1RF Discharge Orders: Discharge ED (Routine); Ordered 03/15/23 Ordered By: Jamie Martin Referrals: Ann-Marie Steven MD [Primary Care Provider] - Discharge Diet: Usual diet Discharge Activity: Resume usual activity Patient Instructions: Blocked Tear Duct (ED) Activity Restrictions/Additional Instructions: Use eyedrops 1 drop to the affected eye 4 times a day for the next 7 days. Follow-up with eye skin care therapist in 3 days for recheck. Return to emergency department for new concerns. Coding Level of Care Code ED Child And Adolescent Psychologist for Noe Osorio
[2023-03-15 21:37] VITALS: BP 136/89; PULSE 82; RESP 16; O2SAT 94
[2023-03-15] MEDS: neomycin-poly-dex Op 5 mL Btl 2 DROP EYE-LEFT (21:43)
[2023-03-15] MEDS: eye irrigation 30 mL Btl EYE-LEFT (21:43)
[2023-03-15] MEDS: fluorescein 1 mg Strip EYE-LEFT (21:43)
[2023-03-15] MEDS: tetracaine 0.5% Op Soln 4 mL Btl 1 DROP EYE-LEFT (21:43)
== END 2023-03-15 21:50 | disposition home or self-care (01) ==
PROVIDERS: Emergency Provider Nurse Practitioner Family; PCP Internal Medicine
DX: H04.9 Disorder of lacrimal system, unspecified (principal); Z79.82 Long term (current) use of aspirin; F17.210 Nicotine dependence, cigarettes, uncomplicated; E78.5 Hyperlipidemia, unspecified
CPT/HCPCS: 99283

== ENCOUNTER 2023-06-09 21:32 | Emergency (ER) | payer MEDICAID, SELFPAY ==
[2023-06-09 21:39] VITALS: BP 153/91; PULSE 85; RESP 18; TEMP 36.7; O2SAT 95; BMI 40.6
--- NOTE | 2023-06-09 21:50 | W.ED.HA ---
HPI - Headache General: Chief Complaint: Headache Stated Complaint: Head Hurts Time Seen by Provider: 06/09/23 21:48 Source: patient Mode of arrival: ambulatory Limitations: no limitations History of Present Illness: 37-year-old male has had a history of migraines over the last 2 years he states he had a headache over the last 2 days it began gradually does have some photophobia phonophobia its like his previous migraines. He denies any weakness denies any difficulty walking no vomiting. Associated symptoms: Deny chest pain, fever(s), nausea, rash or vomiting Review of Systems Const: Denies: fever(s) or chills Eyes: Denies: eye discomfort ENMT: Denies: throat pain or dental pain Card: Denies: chest pain Resp: Denies: dyspnea GI: Denies: abdominal pain, nausea, vomiting or diarrhea Musc: Denies: neck pain or back pain Skin/Breast: Denies: rash Neuro: Reports: headache(s) PFSH ED PFSH: Medical History Erectile dysfunction Tadalafil prescribed September 2021. History of kidney stones Hyperlipidemia Low testosterone in male Lower urinary tract symptoms Lumbar disc disease Migraine headache with aura OCD (obsessive compulsive disorder) Psychiatric care Shoulder pain Tooth infection Surgical History History of tonsillectomy and adenoidectomy Family History Father , at age 68 Alcoholic Mother Cancer BREAST CANCER Sister Cancer Other CAD (coronary artery disease) Diabetes Hypertension Social History Smoking and tobacco status: current every day smoker Alcohol intake: never Substance/Drug Use: unknown Adopted: No Caregiver/support person: No Marital status: Current occupational status: unemployed Physical Exam Const: COMMON NORMALS: no acute distress, patient oriented x3 and healthy appearing HENMT: COMMON NORMALS: normocephalic and atraumatic HEAD & SCALP: normocephalic and atraumatic Eye: COMMON NORMALS: Equal, round and reactive pupils present and EOMs intact bilaterally PUPIL: Yes Equal, round and reactive pupils present Neck/C-Spine: COMMON NORMALS: supple Chest: COMMONS NORMALS: normal inspection of the chest and normal palpation of entire chest wall Resp: COMMON NORMALS: normal respiratory effort, No retractions, No use of accessory muscles and clear to auscultation bilaterally AUSCULTATION: clear to auscultation bilaterally Cardio: COMMON NORMALS: regular rate, regular rhythm and No murmurs present (Cardio) RATE: regular rate RHYTHM: regular rhythm GI: COMMON NORMALS: Normal to inspection, nondistended, normoactive bowel sounds present, Soft to palpation, non-tender and no masses PALPATION: Yes Soft to palpation Extremity: COMMON NORMALS: normal to inspection and full ROM Neuro: COMMON NORMALS: patient oriented x3, moves all extremities and no focal motor deficits Psych: COMMON NORMALS: mental status grossly normal, Normal thought process present and cooperative THOUGHT PROCESS: Normal thought process present Skin: COMMON NORMALS: no rashes or lesions noted and no wounds GENERAL SKIN EXAM: no rashes or lesions noted Course Vital Signs: Vital signs: Vital Signs Temperature 98.1 F 06/09/23 21:39 Pulse Rate 85 06/09/23 21:39 Respiratory Rate 18 06/09/23 21:39 Blood Pressure 153/91 06/09/23 21:39 Pulse Oximetry 95 06/09/23 21:39 Oxygen Delivery Me thod Room Air 06/09/23 21:39 MDM - Headache Medical Decision Making Patient presents here with a headache likely migraine headache did give him Reglan Benadryl he is well-appearing here no signs of meningitis or subarachnoid hemorrhage she is stable for discharge she is to follow-up with PCP and return if worsening. Discharge Plan Discharge Patient Disposition: Home Clinical Impression: Migraine Condition: Stable Discharge Orders: Discharge ED (Routine); Ordered 06/09/23 Ordered By: Sean Messina Referrals: Ann-Marie Steven MD [Primary Care Provider] - Discharge Diet: Advance as tolerated Discharge Activity: Resume usual activity Patient Instructions: Migraine Headache (ED) Coding Level of Care Code ED Welding Machine Operator Thermit for Noe Osorio
[2023-06-09] MEDS: morphine 4 mg/mL SDV 1 mL IM (22:01)
[2023-06-09] MEDS: metoclopramide 5 mg/mL SDV 2 mL 10 MG IM (22:01)
[2023-06-09] MEDS: diphenhydrAMINE 50 mg/mL SDV 1mL IM (22:02)
== END 2023-06-09 22:03 | disposition home or self-care (01) ==
PROVIDERS: Emergency Provider Emergency Medicine; PCP Internal Medicine
DX: G43.909 Migraine, unspecified, not intractable, without status migrainosus (principal); F17.210 Nicotine dependence, cigarettes, uncomplicated; E78.5 Hyperlipidemia, unspecified
CPT/HCPCS: 96372; 99284; J1200; J2270; J2765

== ENCOUNTER 2023-06-14 15:38 | Emergency (ER) | payer MEDICAID, SELFPAY ==
[2023-06-14 15:42] VITALS: BP 137/84; PULSE 80; RESP 18; TEMP 36.6; O2SAT 97; BMI 40.6
--- NOTE | 2023-06-14 16:08 | XRR_ITS ---
PROCEDURE INFORMATION: Exam: XR Left Foot Exam date and time: 06/14/2023 4:15 PM Age: 37 years old Clinical indication: Injury or trauma; Other: Unknown; Other: Foreign body; Additional info: Embedded glass TECHNIQUE: Imaging protocol: Radiologic exam of the left foot. Views: 3 or more views. COMPARISON: CR XR knee LT 3V* [id number] 02/12/2022 7:20 AM FINDINGS: Bones/joints: Normal. Soft tissues: Normal. XR/XR foot LT min 3V* [id number] IMPRESSION: No acute findings.
[2023-06-14] MEDS: tetanus-dipt-pertussis 0.5 mL SDV IM (16:21)
--- NOTE | 2023-06-14 16:30 | W.ED.EXTPRO ---
HPI - Extremity Problem General: Chief complaint: Extremity Injury, Lower Stated complaint: glass in left foot Time Seen by Provider: 06/14/23 16:08 Source: patient Mode of arrival: ambulatory Limitations: no limitations History of Present Illness: Patient is a 37-year-old male who presents to ED today with a complaint of possible glass to the bottom of his left foot. Patient believes he stepped on the glass several days ago. He feels like the bottom of his foot is starting to swell and has noticed a small amount of redness. Patient at some point during my initial assessment tells me that something else could have happened to the foot and was very vague in that statement. He states because of his work that something could have happened . When asked to elaborate he tells me he works for [employer] and just got back from [place]. Patient has a history of psychosis and drug abuse. MD Complaint: extremity pain and extremity swelling Onset (ago): day(s) Pain Consistency: constant Location: left and lower extremity Radiation: none Relieving factors: rest Exacerbating factors: weight bearing and walking Associated symptoms: Reports no associated symptoms; Deny fever(s) Context: other (possible foreign body) Review of Systems Const: Denies: fever(s), chills, body aches, fatigue or malaise Musc: Reports: extremity pain (L foot); Denies: neck pain, back pain, extremity swelling, joint pain or joint swelling Skin/Breast: Reports: other (possible fb to plantar L foot) Neuro: Denies: numbness in extremities, weakness in extremities or sensory changes [facility] ED PFSH: Medical History Erectile dysfunction Tadalafil prescribed September 2021. History of kidney stones Hyperlipidemia Low testosterone in male Lower urinary tract symptoms Lumbar disc disease Migraine headache with aura OCD (obsessive compulsive disorder) Psychiatric care Shoulder pain Tooth infection Surgical History History of tonsillectomy and adenoidectomy Family History Father , at age 68 Alcoholic Mother Cancer BREAST CANCER Sister Cancer Other CAD (coronary artery disease) Diabetes Hypertension Social History Smoking and tobacco status: current every day smoker Alcohol intake: never Substance/Drug Use: unknown Adopted: No Caregiver/support person: No Marital status: Current occupational status: unemployed Physical Exam Const: COMMON NORMALS: no acute distress, patient oriented x3, no limitations and alert GENERAL APPEARANCE: cooperative NUTRITIONAL APPEARANCE: obese ORIENTATION/CONSCIOUSNESS: Yes awake, Yes oriented to person, Yes oriented to place and Yes oriented to time Resp: COMMON NORMALS: normal respiratory effort and clear to auscultation bilaterally AUSCULTATION: clear to auscultation bilaterally Cardio: COMMON NORMALS: regular rate and regular rhythm RATE: regular rate RHYTHM: regular rhythm Extremity: COMMON NORMALS: full ROM, capillary refill normal, no joint enlargement, no clubbing, cyanosis or edema, no calf tenderness and no pedal edema GENERAL: Yes normal exam except as noted Feet w/LR Ind Bottom: 1. pt very tender here-a few mm of underlying hemorrhage/blood but no puncture wound or obvious fb noted at this time; he does have some erythema starting to form to medial side of this spot; no drainage, abscess, odor noted; no lymphangitic streaking Neuro: COMMON NORMALS: patient oriented x3, moves all extremities, no focal motor deficits and no sensory deficits noted SENSORIUM/ORIENTATION: Yes alert, Yes oriented to person, Yes oriented to place and Yes oriented to time Skin: NARRATIVE SKIN EXAM: see above for pertinent skin findings Course Vital Signs: Vital signs: Vital Signs Temperature 97.8 F 06/14/23 15:42 Pulse Rate 80 06/14/23 15:42 Respiratory Rate 18 06/14/23 15:42 Blood Pressure 137/84 06/14/23 15:42 Pulse Oximetry 97 06/14/23 15:42 MDM - Extremity (Nontraumatic) Medical Decision Making Do not visualize any foreign bodies on patient's x-ray. I don't visualize any puncture wounds at this time although he does state it is several days old so this could have already closed up. He will be placed on antibiotic coverage for staph/pseudomonas and we will get him follow-up with podiatry. Strict return ED precautions given in regards to infectious changes. Discharge Plan Discharge Patient Disposition: Home Clinical Impression: Puncture wound of foot Qualifiers: Encounter type: initial encounter Laterality: left Qualified Code(s): S91.332A - Puncture wound without foreign body, left foot, initial encounter Condition: Stable Prescriptions: New Cipro 500 mg tablet 500 mg PO Q12H Qty: 14 0RF cephalexin 500 mg capsule 500 mg PO Q6H 7 Days Qty: 28 0RF Discharge Orders: Discharge ED (Routine); Ordered 06/14/23 Ordered By: Maryjane Santos Referrals: Ann-Marie Steven MD [Primary Care Provider] - Patient Instructions: Puncture Wound in the Foot (ED) Activity Restrictions/Additional Instructions: As we discussed please fill your antibiotics and start taking them immediately. Monitor for signs of worsening infection such as redness, swelling, drainage, red streaking up your foot or leg, fevers, or any other concerns you may have. Please seek medical reevaluation if these occur. Case management should reach out to you shortly to help set you up with your follow-up podiatry appointment. Coding Level of Care Code ED Senior Vice President & General Counsel for Noe Osorio
--- NOTE | 2023-06-15 07:27 | DCPLANNER ---
Addendum entered by Ana Banerjee 06/17/23 14:36: procurement manager received the following message from the front office staff at podiatry regarding follow up appointment: I called the patient and left a vm. called sister (emergency contact) She stated he does not have a phone currently, but she would make sure he was aware of the appt and make sure he was able to come in today at 1:30 with Original Note: procurement manager had message to schedule a follow up appointment for patient with podiatry. procurement manager sent patients information to the front office staff at podiatry. Patients information will be printed and reviewed. Clinic will call patient with appointment information.
== END 2023-06-14 16:48 | disposition home or self-care (01) ==
PROVIDERS: Emergency Provider Physician Assistant; PCP Internal Medicine
DX: S91.332A Puncture wound without foreign body, left foot, initial encounter (principal); F17.210 Nicotine dependence, cigarettes, uncomplicated; E78.5 Hyperlipidemia, unspecified; W25.XXXA Contact with sharp glass, initial encounter; Z23 Encounter for immunization
CPT/HCPCS: 73630; 90471; 90715; 99283

== ENCOUNTER 2023-07-09 20:25 | Emergency (ER) | payer MEDICAID, SELFPAY ==
[2023-07-09 20:34] VITALS: BP 156/85; PULSE 87; RESP 16; TEMP 36.7; O2SAT 96; BMI 40.6
[2023-07-09 21:01] LABS: Basophils # 0.1 10^3/uL (0.0-0.1); Basophils % 0.8 %; Eosinophils # 0.3 10^3/uL (0.0-0.8); Eosinophils % 2.5 %; Hematocrit 49.8 % (37-53); Lymphocytes # 3.2 10^3/uL (0.8-4.8); Lymphocytes % 31.7 %; Mean Corpuscular HGB Conc 33.1 g/dL (30-55); Mean Corpuscular Hemoglobin 29.6 pg (27-33); Mean Corpuscular Volume 89.4 fl (82-101); Mean Platelet Volume 9.8 fL (7.4-10.4); Monocytes # 0.7 10^3/uL (0.2-0.9); Monocytes % 6.8 %; Neutrophils # 5.93 10^3/uL (1.8-7.7); Neutrophils % 58.1 %; Nucleated Red Blood Cells % 0 %; Platelet Count 244 10^3/cmm (157-399); Red Blood Count 5.57 10^6/uL (3.85-5.65); Red Cell Distribution Width 12.8 % (12.1-15.1); White Blood Count 10.19 10^3/uL (3.29-11.43)
[2023-07-09 21:08] LABS: Erythrocyte Sedimentation Rate < 1 mm/hr (0-10)
[2023-07-09 21:18] LABS: Alanine Aminotransferase 20 U/L (0-41); Albumin Level 4.4 g/dL (3.5-5.2); Alkaline Phosphatase 80 U/L (40-130); Blood Urea Nitrogen 17 mg/dL (6-20); Calcium 9.2 mg/dL (8.5-10.5); Carbon Dioxide 22 mmol/L (22-29); Chloride 102 mmol/L (98-107); Creatinine Clr Calc Pharmacy 160.5261; Globulin 2.7 g/dL (1.3-4.6); Glucose 111 mg/dL (65-115); Osmolality Calculated 286 mOsm/kg (285-295); Sodium 137 mmol/L (136-145); Total Bilirubin 0.3 mg/dL (0.15-1.2); Total Protein 7.1 g/dL (6.6-8.7)
[2023-07-09 21:26] LABS: Anion Gap 16.9 (5-19); Aspartate Amino Transferase 15 U/L (0-40); Potassium 3.9 mmol/L (3.5-5.1)
--- NOTE | 2023-07-09 21:44 | ED_ITS ---
HPI - General Adult General: Chief complaint: General Medical Stated complaint: Fever\Weal Time Seen by Provider: 07/09/23 21:25 History of Present Illness: 38-year-old male with a history of cough, fevers, body aches, and sputum production for the past couple of days. He has had nausea, but no vomiting. No diarrhea. No known sick contacts. Associated symptoms: Reports dyspnea, headache(s) and nausea; Deny chest pain, rash or vomiting Review of Systems Const: Reports: fever(s), chills and body aches ENMT: Reports: throat pain Card: Denies: chest pain Resp: Reports: dyspnea and productive cough GI: Reports: nausea; Denies: abdominal pain or vomiting Skin/Breast: Denies: rash Neuro: Reports: headache(s) PFSH ED PFSH: Medical History Erectile dysfunction Tadalafil prescribed September 2021. History of kidney stones Hyperlipidemia Low testosterone in male Lower urinary tract symptoms Lumbar disc disease Migraine headache with aura OCD (obsessive compulsive disorder) Psychiatric care Shoulder pain Tooth infection Surgical History History of tonsillectomy and adenoidectomy Family History Father , at age 68 Alcoholic Mother Cancer BREAST CANCER Sister Cancer Other CAD (coronary artery disease) Diabetes Hypertension Social History Smoking and tobacco status: current every day smoker Alcohol intake: never Substance/Drug Use: unknown Adopted: No Caregiver/support person: No Marital status: Current occupational status: unemployed Physical Exam Const: GENERAL APPEARANCE: anxious HENMT: COMMON NORMALS: normocephalic, atraumatic and Normal external nose present HEAD & SCALP: normocephalic and atraumatic FACE & SINUS: normal facial exam and face symmetric NOSE: Normal external nose present Eye: COMMON NORMALS: Equal, round and reactive pupils present and EOMs intact bilaterally PUPIL: Yes Equal, round and reactive pupils present Neck/C-Spine: GENERAL: Yes trachea midline Chest: CHEST: Yes Symmetrical chest wall rise Resp: COMMON NORMALS: normal respiratory effort, No retractions, No use of accessory muscles and clear to auscultation bilaterally AUSCULTATION: clear to auscultation bilaterally Cardio: COMMON NORMALS: regular rate and regular rhythm RATE: regular rate RHYTHM: regular rhythm GI: COMMON NORMALS: Normal to inspection, nondistended, normoactive bowel sounds present Extremity: COMMON NORMALS: no pedal edema Neuro: JANEY COMA SCALE: document GCS findings [place] coma scale eye opening: Spontaneous Janey coma scale verbal response: Orientated Janey coma scale motor response: Obey commands Janey coma scale total score: 15 SENSORY EXAM: Yes extremities (intact) Psych: COMMON NORMALS: speech normal SPEECH: Yes normal speech Skin: COMMON NORMALS: no rashes or lesions noted GENERAL SKIN EXAM: no rashes or lesions noted Course Vital Signs: Vital signs: Vital Signs Temperature 98.1 F 07/09/23 20:34 Pulse Rate 87 07/09/23 20:34 Respiratory Rate 16 07/09/23 20:34 Blood Pressure 156/85 07/09/23 20:34 Pulse Oximetry 96 07/09/23 20:34 [facility] - General Adult Medical Decision Making 38-year-old male concerned over viral/upper respiratory symptoms. CBC and BMP are normal. Liver enzymes are normal. His CRP is 3. Chest x-ray is negative. He will be released. Respiratory panel is pending. Lab Data 07/09/23 20:55 07/09/23 20:55 Laboratory Results WBC 10.19 10^3/uL (3.29-11.43) 07/09/23 20:55 RBC 5.57 10^6/uL (3.85-5.65) 07/09/23 20:55 Hgb 16.50 g/dL (11.27-16.99) 07/09/23 20:55 Hct 49.8 % (37-53) 07/09/23 20:55 MCV 89.4 fl (82-101) 07/09/23 20:55 MCH 29.6 pg (27-33) 07/09/23 20:55 MCHC 33.1 g/dL (30-55) 07/09/23 20:55 RDW 12.8 % (12.1-15.1) 07/09/23 20:55 Plt Count 244 10^3/cmm (157-399) 07/09/23 20:55 MPV 9.8 fL (7.4-10.4) 07/09/23 20:55 Neut % (Auto) 58.1 % 07/09/23 20:55 Lymph % (Auto) 31.7 % 07/09/23 20:55 [place] % (Auto) 6.8 % 07/09/23 20:55 Eos % (Auto) 2.5 % 07/09/23 20:55 Baso % (Auto) 0.8 % 07/09/23 20:55 Neut # (Auto) 5.93 10^3/uL (1.8-7.7) 07/09/23 20:55 Lymph # (Auto) 3.2 10^3/uL (0.8-4.8) 07/09/23 20:55 [place] # (Auto) 0.7 10^3/uL (0.2-0.9) 07/09/23 20:55 Eos # (Auto) 0.3 10^3/uL (0.0-0.8) 07/09/23 20:55 Baso # (Auto) 0.1 10^3/uL (0.0-0.1) 07/09/23 20:55 Nucleated RBC % (auto) 0 % 07/09/23 20: Nucleated RBCs # 0.0 /100WBC 07/09/23 20:55 ESR < 1 mm/hr (0-10) 07/09/23 20:55 Sodium 137 mmol/L (136-145) 07/09/23 20:55 Potassium 3.9 mmol/L (3.5-5.1) 07/09/23 20:55 Chloride 102 mmol/L (98-107) 07/09/23 20:55 Carbon Dioxide 22 mmol/L (22-29) 07/09/23 20:55 Anion Gap 16.9 (5-19) 07/09/23 20:55 BUN 17 mg/dL (6-20) 07/09/23 20:55 Creatinine 0.9 mg/dL (0.7-1.2) 07/09/23 20:55 GFR Calculation 95.0 mL/min (90-130) 07/09/23 20:55 Glucose 111 mg/dL (65-115) 07/09/23 20:55 Calculated Osmolality 286 mOsm/kg (285-295) 07/09/23 20:55 Calcium 9.2 mg/dL (8.5-10.5) 07/09/23 20:55 Total Bilirubin 0.3 mg/dL (0.15-1.2) 07/09/23 20:55 AST 15 U/L (0-40) 07/09/23 20:55 ALT 20 U/L (0-41) 07/09/23 20:55 Alkaline Phosphatase 80 U/L (40-130) 07/09/23 20:55 C-Reactive Protein 3.0 mg/L (0.0-4.9) 07/09/23 20:55 Total Protein 7.1 g/dL (6.6-8.7) 07/09/23 20:55 Albumin 4.4 g/dL (3.5-5.2) 07/09/23 20:55 Globulin 2.7 g/dL (1.3-4.6) 07/09/23 20:55 XR interpretation done by ED provider, pending radiology final review Discharge Plan Discharge Patient Disposition: Home Clinical Impression: Acute upper respiratory infection Condition: Stable Prescriptions: New promethazine 25 mg tablet 25 mg PO Q6H PRN (Reason: nausea) Qty: 10 0RF No Action Cipro 500 mg tablet 500 mg PO Q12H Qty: 14 0RF Discharge Orders: Discharge ED (Routine); Ordered 07/09/23 Ordered By: Bonilla Thompson Referrals: Ann-Marie Steven MD [Primary Care Provider] - 4-7 days Patient Instructions: Upper Respiratory Infection (ED) Activity Restrictions/Additional Instructions: Take prescribed medication for nausea and/or cough. It should improve both. Monitor for fevers. Treat accordingly with Tylenol. See your doctor next week. Coding Level of Care Code ED Cash Management Associate for Noe Osorio
--- NOTE | 2023-07-09 21:51 | XRR_ITS ---
PROCEDURE INFORMATION: Exam: XR Chest Exam date and time: 07/09/2023 9:55 PM Age: 38 years old Clinical indication: Cough and dyspnea; Patient HX: Productive cough; Fever; Additional info: Cough, sputum production, fever TECHNIQUE: Imaging protocol: Radiologic exam of the chest. Views: 1 view. COMPARISON: CT chest abd pel wo con 02/12/2022 7:18 AM FINDINGS: Lungs: Unremarkable. No consolidation. Pleural spaces: Unremarkable. No pleural effusion. No pneumothorax. Heart/Mediastinum: Unremarkable. No cardiomegaly. Bones/joints: Unremarkable. XR/XR chest 1V portable [id number] IMPRESSION: No acute findings.
[2023-07-09 23:15] LABS: Adenovirus Not Detected (NOT DETECT); Chlamydia Pneumoniae Not Detected (NOT DETECT); Coronavirus 229E,HKU1,NL63,OC4 Not Detected (NOT DETECT); Human Metapneumovirus Not Detected (NOT DETECT); Human Rhinovirus/Enterovirus Not Detected (NOT DETECT); Influenza A Not Detected (NOT DETECT); Influenza A H1 Not Detected (NOT DETECT); Influenza A H1-2009 Not Detected (NOT DETECT); Influenza A H3 Not Detected (NOT DETECT); Influenza B Not Detected (NOT DETECT); Mycoplasma Pneumoniae Not Detected (NOT DETECT); Parainfluenza Virus Type 1 Not Detected (NOT DETECT); Parainfluenza Virus Type 2 Not Detected (NOT DETECT); Parainfluenza Virus Type 3 Not Detected (NOT DETECT); Parainfluenza Virus Type 4 Not Detected (NOT DETECT); Respiratory Syncytial Virus A Not Detected (NOT DETECT); Respiratory Syncytial Virus B Not Detected (NOT DETECT); SARS-COV-2 Not Detected (NOT DETECT)
[2023-07-12 14:45] LABS: Lyme AB Screen <0.90 index
[2023-07-13 16:44] LABS: E. Chaffeensis AB IGG <1:64; E. Chaffeensis AB IGM <1:20
[2023-07-14 16:49] LABS: RMSF IGG NOT DETECTED; RMSF IGM NOT DETECTED
== END 2023-07-09 22:20 | disposition home or self-care (01) ==
PROVIDERS: Nurse Practitioner Family; Emergency Provider Emergency Medicine; PCP Internal Medicine
DX: J06.9 Acute upper respiratory infection, unspecified (principal); F17.210 Nicotine dependence, cigarettes, uncomplicated; E78.5 Hyperlipidemia, unspecified
CPT/HCPCS: 36415; 71045; 80053; 85025; 85651; 86140; 86618; 86666; 86757; 87486; 87581; 87633; 99284

== ENCOUNTER 2023-08-06 22:59 | Emergency (ER) | payer MEDICAID, SELFPAY ==
[2023-08-06 23:03] VITALS: BP 142/100; PULSE 94; RESP 18; TEMP 36.8; O2SAT 94; BMI 35.2
--- NOTE | 2023-08-06 23:17 | XRR_ITS ---
PROCEDURE INFORMATION: Exam: XR Chest Exam date and time: 08/06/2023 11:20 PM Age: 38 years old Clinical indication: Other: Accidental ingestion; Patient HX: Patient accidentally drank battery acid. ; Additional info: Drank acid TECHNIQUE: Imaging protocol: Radiologic exam of the chest. Views: 1 view. COMPARISON: CR (CHEST, ) 07/09/2023 9:55 PM FINDINGS: Lungs: Unremarkable. No consolidation. Pleural spaces: Unremarkable. No pleural effusion. No pneumothorax. Heart/Mediastinum: Unremarkable. No cardiomegaly. Bones/joints: Unremarkable. XR/XR chest 1V portable [id number] IMPRESSION: No acute findings.
--- NOTE | 2023-08-06 23:17 | ECG_ITS ---
[facility] Test Date: 2023-08-07 Pat Name: Adama Thompson Department: Room: Gender: Male Clinical Training Specialist: : [id number] Requested By: Bonilla Sorenson Order Number: [id number] Art MD: Korin Cochran M.D. Measurements Intervals [place] Rate: 82 P: 64 ID: [id number] QRS: 65 QRSD: 101 T: 39 QT: 351 QTc: 412 Interpretive Statements SINUS RHYTHM Compared to ECG 02/15/2023 09:26:42 No significant changes Electronically Signed On 08-07-2023 10:09:46 CDT by Korin Cochran M.D. [id number]
[2023-08-06 23:24] LABS: Basophils % 0.3 %; Eosinophils # 0.2 10^3/uL (0.0-0.8); Eosinophils % 1.5 %; Hematocrit 44.8 % (37-53); Lymphocytes # 2.4 10^3/uL (0.8-4.8); Lymphocytes % 20.6 %; Mean Corpuscular HGB Conc 33.5 g/dL (30-55); Mean Corpuscular Hemoglobin 29.6 pg (27-33); Mean Corpuscular Volume 88.4 fl (82-101); Mean Platelet Volume 9.5 fL (7.4-10.4); Monocytes # 0.9 10^3/uL (0.2-0.9); Monocytes % 7.8 %; Neutrophils # 8.16 10^3/uL (1.8-7.7); Neutrophils % 69.5 %; Nucleated Red Blood Cells % 0 %; Platelet Count 233 10^3/cmm (157-399); Red Blood Count 5.07 10^6/uL (3.85-5.65); White Blood Count 11.76 10^3/uL (3.29-11.43)
--- NOTE | 2023-08-06 23:27 | PC.NURSE ---
MOther in waiting room and requested to speak to the nurse. Mother states that pt was in her garage and she does not have acid in her garage. MOther states that he recently was released from [place] [facility] and his father was paranoid schizo and she states he is paranoid, likely doing this for attention.
[2023-08-06 23:28] LABS: Blood Gas Operator Identificat HARKR; Oxygen Device ROOM AIR
[2023-08-06 23:39] LABS: PO2 ABG 64.3 mmHg (80.0-100.0)
[2023-08-06 23:45] LABS: Alanine Aminotransferase 34 U/L (0-41); Albumin Level 4.7 g/dL (3.5-5.2); Alkaline Phosphatase 68 U/L (40-130); Anion Gap 14.7 (5-19); Aspartate Amino Transferase 15 U/L (0-40); Blood Urea Nitrogen 9 mg/dL (6-20); Calcium 9.4 mg/dL (8.5-10.5); Carbon Dioxide 26 mmol/L (22-29); Chloride 99 mmol/L (98-107); Globulin 2.4 g/dL (1.3-4.6); Glomerular Filtration Rate 108.8 mL/min (90-130); Glucose 93 mg/dL (65-115); Magnesium 1.8 mg/dL (1.7-2.3); Osmolality Calculated 280 mOsm/kg (285-295); Phosphorus 2.5 mg/dL (2.5-4.5); Potassium 3.7 mmol/L (3.5-5.1); Sodium 136 mmol/L (136-145); Total Bilirubin 0.3 mg/dL (0.15-1.2); Total Protein 7.1 g/dL (6.6-8.7)
[2023-08-06] MEDS: ondansetron 2 mg/ML SDV 2 mL 4 MG IVP (23:48)
[2023-08-06] MEDS: morphine 4 mg/mL SDV 1 mL IVP (23:49)
[2023-08-06 23:50] LABS: ABG PCO2 43.8 mmHg (35-45); ABG PH Result 7.37 (7.35-7.45); HCO3 ABG 25.4 mmol/L (22-26)
[2023-08-06 23:51] LABS: Base Excess ABG -0.1 mmol/L (-2.0-2.0)
[2023-08-06 23:52] LABS: Arterial Blood Gas Hematocrit 43.9 % (42-52); Blood Gas Sample Type Arterial
[2023-08-06 23:55] VITALS: BP 138/91; PULSE 92; RESP 16; O2SAT 93
[2023-08-06 23:57] LABS: Acetaminophen < 5.0 ug/mL (10-30); Salicylate < 0.3 mg/dL (3-10)
[2023-08-07 00:15] LABS: Alcohol Level < 10 mg/dL (0-10)
[2023-08-07 00:55] VITALS: BP 140/90; PULSE 78; RESP 16; O2SAT 93
--- NOTE | 2023-08-07 05:32 | ED_ITS ---
HPI - Nausea/Vomiting/Diarrhea General: Chief complaint: Nausea/Vomiting/Diarrhea Stated complaint: Drank Acid Time Seen by Provider: 08/06/23 23:09 History of Present Illness: 38-year-old male with a history of mental illness. He presents stating that he believes he drank battery acid that was in a cup in the garage while he was working in the garage. He then drink vinegar to follow this hoping it would help. He complains of mouth burn pain, chest tightness, nausea and vomiting. He states that he vomited several times, and is drink water since then and held it down. No blood in the vomitus. Associated nausea: Yes Associated symtoms: Reports chest pain (tightness) and nausea Review of Systems General: Reports: ROS unobtainable due to medical condition (pt is somewhat unreliable historian) Const: Denies: fever(s) Eyes: Denies: blurry vision ENMT: Reports: throat pain, odynophagia and mouth pain; Denies: hoarseness or swelling of lips/tongue Card: Reports: chest pain (tightness) Resp: Denies: dyspnea GI: Reports: nausea and vomiting; Denies: abdominal pain or hematemesis : Denies: flank pain PFSH ED PFSH: Medical History Erectile dysfunction Tadalafil prescribed September 2021. History of kidney stones Hyperlipidemia Low testosterone in male Lower urinary tract symptoms Lumbar disc disease Migraine headache with aura OCD (obsessive compulsive disorder) Psychiatric care Shoulder pain Tooth infection Surgical History History of tonsillectomy and adenoidectomy Family History Father , at age 68 Alcoholic Mother Cancer BREAST CANCER Sister Cancer Other CAD (coronary artery disease) Diabetes Hypertension Social History Smoking and tobacco/nicotine status: current every day tobacco/nicotine user Alcohol intake: never Substance/Drug Use: unknown Adopted: No Caregiver/support person: No Marital status: Current occupational status: unemployed Physical Exam Const: COMMON NORMALS: no acute distress GENERAL APPEARANCE: cooperative; not ill appearing and not frail appearing HENMT: COMMON NORMALS: normocephalic, atraumatic and Normal external nose present HEAD & SCALP: normocephalic and atraumatic FACE & SINUS: normal facial exam and face symmetric NOSE: Normal external nose present Eye: COMMON NORMALS: Equal, round and reactive pupils present and EOMs intact bilaterally PUPIL: Yes Equal, round and reactive pupils present Neck/C-Spine: GENERAL: Yes trachea midline Chest: CHEST: Yes Symmetrical chest wall rise Resp: COMMON NORMALS: normal respiratory effort, No retractions, No use of accessory muscles and clear to auscultation bilaterally AUSCULTATION: clear to auscultation bilaterally Cardio: COMMON NORMALS: regular rate and regular rhythm RATE: regular rate RHYTHM: regular rhythm GI: COMMON NORMALS: Normal to inspection, nondistended, normoactive bowel sounds present Extremity: COMMON NORMALS: no pedal edema Neuro: CONNOR COMA SCALE: document GCS findings Sumner coma scale eye opening: Spontaneous Sumner coma scale verbal response: Orientated Sumner coma scale motor response: Obey commands Sumner coma scale total score: 15 SENSORY EXAM: Yes extremities (intact) Psych: COMMON NORMALS: speech normal SPEECH: Yes normal speech Skin: COMMON NORMALS: no rashes or lesions noted GENERAL SKIN EXAM: no rashes or lesions noted Course Vital Signs: Vital signs: Vital Signs Temperature 98.2 F 08/06/23 23:03 Pulse Rate 78 08/07/23 00:55 Respiratory Rate 16 08/07/23 00:55 Blood Pressure 140/90 08/07/23 00:55 Pulse Oximetry 93 08/07/23 00:55 MDM - Nausea/Vomiting/Diarrhea Medical Decision Making No strict evidence of a caustic substance being ingested or swallowed by this patient. Mother is concerned, as this may be one of the patient's hallucina tions, as she says she did not find any evidence in the garage of battery acid or any other caustic substance in a cup. White blood cell count is 11. 8. CBC and BMP are otherwise not remarkable. His blood gas shows a pH of 7.37 with a PCO2 of 44, PO2 of 64. Chest x-ray is not remarkable. Talk screens are negative. Patient is stable. This was not a suicide attempt. He will be allowed home to return for worsening symptoms. Lab Data 08/06/23 23:18 08/06/23 23:18 Radiology Impressions Chest X-Ray 08/06/23 23:17 IMPRESSION: No acute findings. Laboratory Results WBC 11.76 10^3/uL (3.29-11.43) H 08/06/23 23:18 RBC 5.07 10^6/uL (3.85-5.65) 08/06/23 23:18 Hgb 15.00 g/dL (11.27-16.99) 08/06/23 23:18 Hct 44.8 % (37-53) 08/06/23 23:18 MCV 88.4 fl (82-101) 08/06/23 23:18 MCH 29.6 pg (27-33) 08/06/23 23:18 MCHC 33.5 g/dL (30-55) 08/06/23 23:18 RDW 12.0 % (12.1-15.1) L 08/06/23 23:18 Plt Count 233 10^3/cmm (157-399) 08/06/23 23:18 MPV 9.5 fL (7.4-10.4) 08/06/23 23:18 Neut % (Auto) 69.5 % 08/06/23 23:18 Lymph % (Auto) 20.6 % 08/06/23 23:18 Tillman % (Auto) 7.8 % 08/06/23 23:18 Eos % (Auto) 1.5 % 08/06/23 23:18 Baso % (Auto) 0.3 % 08/06/23 23:18 Neut # (Auto) 8.16 10^3/uL (1.8-7.7) H 08/06/23 23:18 Lymph # (Auto) 2.4 10^3/uL (0.8-4.8) 08/06/23 23:18 Tillman # (Auto) 0.9 10^3/uL (0.2-0.9) 08/06/23 23:18 Eos # (Auto) 0.2 10^3/uL (0.0-0.8) 08/06/23 23:18 Baso # (Auto) 0.0 10^3/uL (0.0-0.1) 08/06/23 23:18 Nucleated RBC % (auto) 0 % 08/06/23 23:18 Nucleated RBCs # 0.0 /100WBC 08/06/23 23:18 Specimen Type Arterial 08/06/23 23:10 Sample Site right brachial 08/06/23 23:10 ABG pH 7.37 (7.35-7.45) 08/06/23 23:10 ABG pCO2 43.8 mmHg (35-45) 08/06/23 23:10 ABG pO2 64.3 mmHg (80.0-100.0) L 08/06/23 23:10 ABG HCO3 25.4 mmol/L (22-26) 08/06/23 23:10 ABG Base Excess -0.1 mmol/L (-2.0-2.0) 08/06/23 23:10 Dequan Test Postive 08/06/23 23:10 Hematocrit 43.9 % (42-52) 08/06/23 23:10 O2 Delivery Device Room air 08/06/23 23:10 FiO2 21.0 % 08/06/23 23:10 Rental Car Deliverer ID Harkr 08/06/23 23:10 Sodium 136 mmol/L (136-145) 08/06/23 23:18 Potassium 3.7 mmol/L (3.5-5.1) 08/06/23 23:18 Chloride 99 mmol/L (98-107) 08/06/23 23:18 Carbon Dioxide 26 mmol/L (22-29) 08/06/23 23:18 Anion Gap 14.7 (5-19) 08/06/23 23:18 BUN 9 mg/dL (6-20) 08/06/23 23:18 Creatinine 0.8 mg/dL (0.7-1.2) 08/06/23 23:18 GFR Calculation 108.8 mL/min (90-130) 08/06/23 23:18 Glucose 93 mg/dL (65-115) 08/06/23 23:18 Calculated Osmolality 280 mOsm/kg (285-295) L 08/06/23 23:18 Calcium 9.4 mg/dL (8.5-10.5) 08/06/23 23:18 Phosphorus 2.5 mg/dL (2.5-4.5) 08/06/23 23:18 Magnesium 1.8 mg/dL (1.7-2.3) 08/06/23 23:18 Total Bilirubin 0.3 mg/dL (0.15-1.2) 08/06/23 23:18 AST 15 U/L (0-40) 08/06/23 23:18 ALT 34 U/L (0-41) 08/06/23 23:18 Alkaline Phosphatase 68 U/L (40-130) 08/06/23 23:18 Total Protein 7.1 g/dL (6.6-8.7) 08/06/23 23:18 Albumin 4.7 g/dL (3.5-5.2) 08/06/23 23:18 Globulin 2.4 g/dL (1.3-4.6) 08/06/23 23:18 Salicylates < 0.3 mg/dL (3-10) L 08/06/23 23:18 Acetaminophen < 5.0 ug/mL (10-30) L 08/06/23 23:18 Ethyl Alcohol < 10 mg/dL (0-10) 08/06/23 23:18 All radiology interpretation(s) finalized by discharge Discharge Plan Discharge Patient Disposition: Home Clinical Impression: Ingestion of corrosive chemical Condition: Stable Prescriptions: No Action Cipro 500 mg tablet 500 mg PO Q12H Qty: 14 0RF promethazine 25 mg tablet 25 mg PO Q6H PRN (Reason: nausea) Qty: 10 0RF Discharge Orders: Discharge ED (Routine); Ordered 08/07/23 Ordered By: Bonilla Thompson Referrals: Ann-Marie Steven MD [Primary Care Provider] - 4-7 days Patient Instructions: Corrosive Esophagitis (ED) Activity Restrictions/Additional Instructions: Drink plenty of clear liquids. Coding Level of Care Code ED Dielectric Machine Operator for Noe Osorio
== END 2023-08-07 00:56 | disposition home or self-care (01) ==
PROVIDERS: Emergency Provider Emergency Medicine; PCP Internal Medicine
DX: T54.2X1A Toxic effect of corrosive acids and acid-like substances, accidental (unintentional), initial encounter (principal); Z72.0 Tobacco use; E78.5 Hyperlipidemia, unspecified
CPT/HCPCS: 71045; 80053; 80307; 82803; 83735; 84100; 85025; 93005; 96374; 96375; 99285; J2270; J2405

== ENCOUNTER 2023-08-15 20:12 | Emergency (ER) | payer MEDICAID, SELFPAY ==
[2023-08-15 20:18] VITALS: BP 171/87; PULSE 95; RESP 17; TEMP 36.4; O2SAT 95; BMI 35.9
--- NOTE | 2023-08-15 20:34 | ED_ITS ---
HPI - Back Pain/Injury General: Chief Complaint: Back Pain/Injury Stated Complaint: Back Pain Time Seen by Provider: 08/15/23 20:21 History of Present Illness: 38-year-old 3 to 4 days. Patient male presents emergency room with lower back pain within the past described the pain as aching sensation mostly lower back with severity of 7 out of 10. Increased pain with movement. Patient denies any fall or recent injury. Denies any numbness or tingling to lower extremity. No bowel or bladder. Patient reveals history of chronic back pain in the past. Associated symptoms: Deny chills, dysuria, fatigue, fever(s) or urinary urgency Review of Systems General: Reports: 10 or more systems reviewed and unremarkable except in HPI and below Const: Denies: fever(s), chills, body aches, change in appetite, fatigue, malaise or night sweats Card: Denies: chest pain, palpitations or irregular heart rhythm : Denies: dysuria, urinary frequency, urinary urgency, difficulty starting urination, urinary incontinence, penile discharge, scrotal swelling, difficulty with ejactulations, erectile dysfunction or difficulty impregnating Musc: Reports: back pain; Denies: joint warmth, limited range of motion, muscle cramps, muscle weakness, decrease in muscle mass, loss of height or deformity PFSH ED PFSH: Medical History Erectile dysfunction Tadalafil prescribed September 2021. History of kidney stones Hyperlipidemia Low testosterone in male Lower urinary tract symptoms Lumbar disc disease Migraine headache with aura OCD (obsessive compulsive disorder) Psychiatric care Shoulder pain Tooth infection Surgical History History of tonsillectomy and adenoidectomy Family History Father , at age 68 Alcoholic Mother Cancer BREAST CANCER Sister Cancer Other CAD (coronary artery disease) Diabetes Hypertension Social History Smoking and tobacco/nicotine status: current every day tobacco/nicotine user Alcohol intake: never Substance/Drug Use: unknown Adopted: No Caregiver/support person: No Marital status: Current occupational status: unemployed Physical Exam Const: COMMON NORMALS: no acute distress Neck/C-Spine: COMMON NORMALS: no JVD Resp: COMMON NORMALS: normal respiratory effort, No retractions, No use of accessory muscles, clear to auscultation bilaterally and percussion normal AUSCULTATION: clear to auscultation bilaterally PERCUSSION: percussion normal Cardio: COMMON NORMALS: no JVD, regular rate, regular rhythm, S1 normal heart sound present, S2 normal heart sound present, No gallops present (Cardio), No clicks present (Cardio), No murmurs present (Cardio), No rub (Cardio) and Peripheral pulses 2+ throughout RATE: regular rate RHYTHM: regular rhythm HEART SOUNDS: S1 normal heart sound present and S2 normal heart sound present PERIPHERAL PULSES: Peripheral pulses 2+ throughout GI: COMMON NORMALS: Normal to inspection, nondistended, normoactive bowel sounds present, Soft to palpation, non-tender, No hepatosplenomegaly present, no masses and no bruits PALPATION: Yes Soft to palpation and Yes No hepatosplenomegaly present Back/Pelvis: LUMBAR SPINE/LOWER BACK: Yes pain with ROM, Yes lumbar spinal tenderness, Yes paraspinal muscle tenderness, No paraspinal muscle spasm, No mass present, No Lumbar scoliosis, Yes straight leg raise positive right and Yes straight leg raise positive left Neuro: SENSORY EXAM: No sensory level loss detected or Normal double simultaneous stimulation for sensation MOTOR EXAM: 5/5 motor strength present throughout Course Vital Signs: Vital signs: Vital Signs Temperature 97.6 F 08/15/23 20:18 Pulse Rate 95 08/15/23 20:18 Respiratory Rate 16 08/15/23 20:41 Blood Pressure 171/87 08/15/23 20:18 Pulse Oximetry 95 08/15/23 20:18 Oxygen Delivery Me thod Room Air 08/15/23 20:18 MDM - Back Pain/Injury Medical Decision Making Patient was made comfortable emergency room. Patient was given IM pain medication and steroid. Upon reassessment patient reveals improvement with his current pain. Follow-up PCP recommended for further evaluation and treatment. Differential Diagnosis Likely sciatica, strain of lumbar region, pyelonephritis, thoracic back pain and discitis No radiology studies performed this visit Discharge Plan Discharge Patient Disposition: Home Clinical Impression: Strain of lumbar region, Back pain Condition: Stable Prescriptions: New cyclobenzaprine 10 mg tablet 10 mg PO Q12H Qty: 14 0RF No Action Cipro 500 mg tablet 500 mg PO Q12H Qty: 14 0RF promethazine 25 mg tablet 25 mg PO Q6H PRN (Reason: nausea) Qty: 10 0RF Discharge Orders: Discharge ED (Routine); Ordered 08/15/23 Ordered By: Jose Sheehan Referrals: Ann-Marie Steven MD [Primary Care Provider] - Discharge Diet: Advance as tolerated Discharge Activity: Resume usual activity Patient Instructions: Opioid Safety, Pain Management Coding Level of Care Code ED 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
[2023-08-15 20:41] VITALS: RESP 16
[2023-08-15] MEDS: morphine 4 mg/mL SDV 1 mL IM (20:41)
[2023-08-15] MEDS: dexamethasone 10 mg/mL INJ IM (20:42)
== END 2023-08-15 21:28 | disposition home or self-care (01) ==
PROVIDERS: Emergency Provider Family Medicine; PCP Internal Medicine
DX: S39.012A Strain of muscle, fascia and tendon of lower back, initial encounter (principal); Z72.0 Tobacco use; E78.5 Hyperlipidemia, unspecified; X58.XXXA Exposure to other specified factors, initial encounter
CPT/HCPCS: 96372; 99284; J1100; J2270

== ENCOUNTER 2024-02-04 01:41 | Emergency (ER) | payer MEDICAID, SELFPAY ==
[2024-02-04 01:48] VITALS: BP 137/80; PULSE 106; RESP 18; TEMP 36.6; O2SAT 93; BMI 43.4
--- NOTE | 2024-02-04 01:59 | XRR_ITS ---
PROCEDURE INFORMATION: Exam: XR Left Foot Exam date and time: 02/04/2024 2:09 AM Age: 38 years old Clinical indication: Injury or trauma; Other: Stepped on glass; Other: Pain; Additional info: Possible glass fb near lateral mtp plantar surface TECHNIQUE: Imaging protocol: Radiologic exam of the left foot. Views: 3 or more views. COMPARISON: CR XR foot LT min 3V* [id number] 06/14/2023 4:15 PM FINDINGS: Bones/joints: Degenerative scattered changes of the visualized osseous structures. Soft tissues: There is soft tissue attenuation heterogeneity at the base of the 5th digit. No foreign bodies appreciated on this exam. XR/XR foot LT min 3V* [id number] IMPRESSION: Soft tissue attenuation heterogeneity of the base of the 5th digit, without obvious radiopaque foreign body. Correlate with physical exam.
--- NOTE | 2024-02-04 01:59 | XRR_ITS ---
PROCEDURE INFORMATION: Exam: XR Right Foot Exam date and time: 02/04/2024 2:11 AM Age: 38 years old Clinical indication: Injury or trauma; Other: Stepped on glass; Other: Pain; Additional info: Possible glass fb near lateral mtp plantar surface TECHNIQUE: Imaging protocol: Radiologic exam of the right foot. Views: 3 or more views. COMPARISON: CR XR foot RT min 3V* [id number] 03/19/2018 3:39 AM FINDINGS: Bones/joints: Normal. Soft tissues: No radiopaque foreign body. XR/XR foot RT min 3V* [id number] IMPRESSION: No acute abnormality. No radiopaque foreign body.
--- NOTE | 2024-02-04 02:07 | W.ED.EXTPRO ---
HPI - Extremity Problem General: Chief complaint: Extremity Problem,Nontraumatic Stated complaint: glass in feet both Time Seen by Provider: 02/04/24 01:44 History of Present Illness: Patient says he stepped on a broken mirror approximately 1 month ago with bare feet and thinks he has glass in both feet. Patient has not been seen previously for this. Patient says on the plantar surface on the lateral metatarsal phalangeal ball regions it hurts when he pushes on them. There is no erythema redness streaking or discharge. Review of Systems General: Reports: 10 or more systems reviewed and unremarkable except in HPI and below PFSH ED PFSH: Medical History Lumbar disc disease Hyperlipidemia Shoulder pain Tooth infection OCD (obsessive compulsive disorder) Migraine headache with aura Erectile dysfunction Tadalafil prescribed September 2021. Lower urinary tract symptoms History of kidney stones Low testosterone in male Surgical History History of tonsillectomy and adenoidectomy Family History Father , at age 68 Alcoholic Mother Cancer BREAST CANCER Sister Cancer Other CAD (coronary artery disease) Diabetes Hypertension Social History Smoking and tobacco/nicotine status: current every day tobacco/nicotine user Alcohol intake: never Substance/Drug Use: unknown Adopted: No Caregiver/support person: No Marital status: Current occupational status: unemployed Physical Exam Const: COMMON NORMALS: no acute distress, average body habitus, patient oriented x3, no limitations, healthy appearing, alert and well nourished Neck/C-Spine: COMMON NORMALS: no JVD Chest: COMMONS NORMALS: normal inspection of the chest and normal palpation of entire chest wall Resp: COMMON NORMALS: normal respiratory effort, No retractions, No use of accessory muscles and clear to auscultation bilaterally AUSCULTATION: clear to auscultation bilaterally Cardio: COMMON NORMALS: no JVD, regular rate, regular rhythm, S1 normal heart sound present, S2 normal heart sound present, No gallops present (Cardio), No clicks present (Cardio) and No murmurs present (Cardio) RATE: regular rate RHYTHM: regular rhythm HEART SOUNDS: S1 normal heart sound present and S2 normal heart sound present GI: COMMON NORMALS: Normal to inspection, nondistended, normoactive bowel sounds present, Soft to palpation, non-tender, No hepatosplenomegaly present and no masses PALPATION: Yes Soft to palpation and Yes No hepatosplenomegaly present Extremity: NARRATIVE EXTREMITY EXAM: Bilateral plantar foot exam shows no obvious puncture wounds, there are multiple calluses on multiple areas. There is no erythema streaking discharge noted. Neuro: COMMON NORMALS: patient oriented x3 SENSORIUM/ORIENTATION: Yes alert Course Vital Signs: Vital signs: Vital Signs Temperature 97.9 F 02/04/24 01:48 Pulse Rate 106 H 02/04/24 01:48 Respiratory Rate 18 02/04/24 01:48 Blood Pressure 137/80 02/04/24 01:48 Pulse Oximetry 93 02/04/24 01:48 Oxygen Delivery Me thod Room Air 02/04/24 01:48 MDM - Extremity (Nontraumatic) Medical Decision Making Bilateral foot x-ray showed no radiopaque foreign body, patient will be referred back to his family practice doctor for further evaluation. Differential Diagnosis Unlikely herpes zoster, gout, cellulitis, superficial thrombophlebitis, deep venous thrombosis of upper extremity, lower extremity edema or deep vein thrombosis of lower extremity Medical Records I reviewed the patient's medical records. Lab Data I reviewed the patient's lab results. Radiology Impressions Foot X-Ray 02/04/24 01:59 IMPRESSION: No acute abnormality. No radiopaque foreign body. All radiology interpretation(s) finalized by discharge Discharge Plan Discharge Patient Disposition: Home Clinical Impression: Bilateral foot pain Condition: Stable Prescriptions: No Action Cipro 500 mg tablet 500 mg PO Q12H Qty: 14 0RF promethazine 25 mg tablet 25 mg PO Q6H PRN (Reason: nausea) Qty: 10 0RF cyclobenzaprine 10 mg tablet 10 mg PO Q12H Qty: 14 0RF Discharge Orders: Discharge ED (Routine); Ordered 02/04/24 Ordered By: Ricardo Boggs Referrals: Ann-Marie Steven MD [Primary Care Provider] - 1 week Activity Restrictions/Additional Instructions: The x-rays of both of your feet performed in the ER did not show any foreign body located within them. Not all foreign bodies show up on x-rays. Please follow-up with your family practice doctor within next 7 to 10 days for further evaluation and treatment. Coding Level of Care Code ED Infrastructure Tech for Noe Osorio
[2024-02-04 03:16] VITALS: BP 119/79; PULSE 86; RESP 14; O2SAT 89
== END 2024-02-04 03:19 | disposition home or self-care (01) ==
PROVIDERS: Emergency Provider Emergency Medicine; PCP Internal Medicine
DX: M79.672 Pain in left foot (principal); M79.671 Pain in right foot; Z72.0 Tobacco use; E78.5 Hyperlipidemia, unspecified
CPT/HCPCS: 73630; 99283

== ENCOUNTER 2024-04-09 21:32 | Emergency (ER) | payer MEDICAID, SELFPAY ==
[2024-04-09 22:05] VITALS: BP 117/72; PULSE 94; RESP 17; TEMP 37.1; O2SAT 96; BMI 40.6
[2024-04-09 23:41] VITALS: BP 148/102; PULSE 101; RESP 18; TEMP 36.6; O2SAT 96
--- NOTE | 2024-04-09 23:44 | PC.NURSE ---
Pt did not want to show me the wound because he had already showed the DR. Pt states he knows it was spider despite seeing the insect. and shows with two fingeers the size of the reddened area.
--- NOTE | 2024-04-09 23:45 | ED_ITS ---
HPI - Skin/Abscess/Foreign Bdy General: Chief complaint: Skin/Abscess/Foreign Body Stated complaint: spider bite inside of leg Time Seen by Provider: 04/09/24 23:08 History of Present Illness: 38 year old male with a history of a andrez nful, red and mildly draining area to the right inner sigh. It has been present for a couple of days he says. He says he has had a fever, but no documentation of fever. PFSH ED PFSH: Medical History Lumbar disc disease Hyperlipidemia Shoulder pain Tooth infection OCD (obsessive compulsive disorder) Migraine headache with aura Erectile dysfunction Tadalafil prescribed September 2021. Lower urinary tract symptoms History of kidney stones Low testosterone in male Surgical History History of tonsillectomy and adenoidectomy Family History Father , at age 68 Alcoholic Mother Cancer BREAST CANCER Sister Cancer Other CAD (coronary artery disease) Diabetes Hypertension Social History Smoking and tobacco/nicotine status: current every day tobacco/nicotine user Alcohol intake: never Substance/Drug Use: unknown Adopted: No Caregiver/support person: No Marital status: Current occupational status: unemployed Physical Exam Const: COMMON NORMALS: no acute distress GENERAL APPEARANCE: cooperative; not ill appearing and not frail appearing HENMT: COMMON NORMALS: normocephalic, atraumatic and Normal external nose present HEAD & SCALP: normocephalic and atraumatic FACE & SINUS: normal facial exam and face symmetric NOSE: Normal external nose present Eye: COMMON NORMALS: Equal, round and reactive pupils present and EOMs intact bilaterally PUPIL: Yes Equal, round and reactive pupils present Neck/C-Spine: GENERAL: Yes trachea midline Chest: CHEST: Yes Symmetrical chest wall rise Resp: COMMON NORMALS: normal respiratory effort, No retractions, No use of accessory muscles and clear to auscultation bilaterally AUSCULTATION: clear to auscultation bilaterally Cardio: COMMON NORMALS: regular rate and regular rhythm RATE: regular rate RHYTHM: regular rhythm GI: COMMON NORMALS: Normal to inspection, nondistended, normoactive bowel sounds present Extremity: COMMON NORMALS: no pedal edema Neuro: JANEY COMA SCALE: document GCS findings Jamison coma scale eye opening: Spontaneous Janey coma scale verbal response: Orientated Jamison coma scale motor response: Obey commands Janey coma scale total score: 15 SENSORY EXAM: Yes extremities (intact) Psych: COMMON NORMALS: speech normal SPEECH: Yes normal speech Skin: NARRATIVE SKIN EXAM: Small abscessed area to the upper inner thigh on the right. No active drainage. No significant fluctuance. No streaking. Mild tenderness Course Vital Signs: Vital signs: Vital Signs Temperature 98 F 04/09/24 23:41 Pulse Rate 101 H 04/10/24 05:58 Respiratory Rate 18 04/10/24 05:58 Blood Pressure 148/102 04/10/24 05:58 Pulse Oximetry 96 04/10/24 05:58 Oxygen Delivery Me thod Room Air 04/09/24 23:41 MDM - Skin/Abscess/Foreign Bdy Medicial Decision Making No fever. non-toxic appearance. He does have an Abscess to the upper inner thigh. He willl be treated with antibiotics. Return for worsening symptoms. No radiology studies performed this visit Discharge Plan Discharge Patient Disposition: Home Clinical Impression: Cellulitis, Abscess of skin or subcutaneous tissue Condition: Stable Prescriptions: New Bactrim DS 800-160 mg tablet 2 tab PO BID Qty: 40 0RF No Action Cipro 500 mg tablet 500 mg PO Q12H Qty: 14 0RF promethazine 25 mg tablet 25 mg PO Q6H PRN (Reason: nausea) Qty: 10 0RF cyclobenzaprine 10 mg tablet 10 mg PO Q12H Qty: 14 0RF Discharge Orders: Discharge ED (Routine); Ordered 04/09/24 Ordered By: Bonilla Thompson Referrals: Ann-Marie Steven MD [Primary Care Provider] - 4-7 days Patient Instructions: Abscess (ED), Opioid Safety, Pain Management Activity Restrictions/Additional Instructions: See your doctor this week for a wound check. Antibiotics as directed. Return for fever greater than 100 despite 2-3 more doses of antibiotics, worsening spreading redness or streaking despite the above. Coding Level of Care Code ED House Father for Noe Osorio
[2024-04-10 05:58] VITALS: BP 148/102; PULSE 101; RESP 18; O2SAT 96
== END 2024-04-10 | disposition home or self-care (01) ==
PROVIDERS: Emergency Provider Emergency Medicine; PCP Internal Medicine
DX: L02.415 Cutaneous abscess of right lower limb (principal); L03.115 Cellulitis of right lower limb; Z72.0 Tobacco use; E78.5 Hyperlipidemia, unspecified
CPT/HCPCS: 99282

== ENCOUNTER 2024-08-25 16:07 | Inpatient (IN) | payer MEDICAID, SELFPAY ==
--- NOTE | 2024-08-25 16:12 | ED.C_ITS ---
HPI - Psych 2 General: Chief Complaint: Psychiatric Symptoms Stated Complaint: 96 Time Seen by Provider: 08/25/24 16:10 History of Present Illness: 39-year-old man with a history of histor y of? drug induced psychotic disorder, methamphetamine abuse and depressive disorde who presents the emergency room with worsening psychosis on a 96-hour hold with police. He has had a history of drug-induced psychosis, depression and suicide attempts in the past. Apparently recently he has regressed again and has been hallucinating. Family describes him talking to himself about battles with the police and [employer] and that he screams and yells and when they try to bring him out of it he becomes very angry. In the past when he is gotten like this he has attempted suicide. He has said things like I am tired of this living. Related Data Previous Rx's Medication Instructions Recorded ciprofloxacin HCl 500 mg tablet 500 mg PO Q12H #14 tabs 06/14/23 (Cipro) promethazine 25 mg tablet 25 mg PO Q6H PRN nausea #10 tabs 07/09/23 cyclobenzaprine 10 mg tablet 10 mg PO Q12H #14 tabs 08/15/23 sulfamethoxazole 800 2 tab PO BID #40 tabs 04/09/24 mg-trimethoprim 160 mg tablet (Bactrim DS) Allergies Allergy/AdvReac Type Severity Reaction Status Date / Time naproxen Allergy ALGY-Difficulty Verified 04/09/24 22:07 Breathing NSAIDS (Non-Steroidal Allergy ALGY-Anaphy Verified 04/09/24 22:07 Anti-Inflamma laxis zonisamide [From Zonegran] AdvReac ADR-Vomitin Verified 04/09/24 22:07 g Review of Systems 2 Narrative: Constitutional symptoms: Negative except as documented in HPI. Skin symptoms: Negative except as documented in HPI. Eye symptoms: Negative except as documented in HPI. ENMT symptoms: Negative except as documented in HPI. Respiratory symptoms: Negative except as documented in HPI. Cardiovascular symptoms: Negative except as documented in HPI. Gastrointestinal symptoms: Negative except as documented in HPI. Genitourinary symptoms: Negative except as documented in HPI. Musculoskeletal symptoms: Negative except as documented in HPI. Neurologic symptoms: Negative except as documented in HPI. Psychiatric symptoms: Negative except as documented in HPI. Endocrine symptoms: Negative except as documented in HPI. PFSH ED 2 PFSH: Medical History Lumbar disc disease Hyperlipidemia Shoulder pain Tooth infection OCD (obsessive compulsive disorder) Migraine headache with aura Erectile dysfunction Tadalafil prescribed September 2021. Lower urinary tract symptoms History of kidney stones Low testosterone in male Surgical History History of tonsillectomy and adenoidectomy Family History Father , at age 68 Alcoholic Mother Cancer BREAST CANCER Sister Cancer Other CAD (coronary artery disease) Diabetes Hypertension Social History Smoking and tobacco/nicotine status: current every day tobacco/nicotine user Alcohol intake: never Substance/Drug Use: unknown Adopted: No Caregiver/support person: No Marital status: Current occupational status: unemployed Physical Exam 2 Narrative: EXAM NARRATIVE: General: Alert, no acute distress. Skin: Warm, dry. Head: Normocephalic, atraumatic. Neck: Supple, trachea midline. Eye: Extraocular movements are intact. Ears, nose, mouth and throat: mucosa moist. Cardiovascular: Regular, Normal peripheral perfusion. Respiratory: Lungs are clear to auscultation, respirations are non-labored, breath sounds are equal, Symmetrical chest wall expansion. Gastrointestinal: Soft, Nontender, Non distended Musculoskeletal: Normal ROM, no deformity. Neurological: Alert and oriented, No focal neurological deficit observed. Psychiatric: Patient has an extremely flat affect. He does not answer many of my questions. Course 2 Vital Signs: Vital signs: Vital Signs Temperature 97.9 F 08/25/24 16:16 Pulse Rate 126 H 08/25/24 16:16 Respiratory Rate 18 08/25/24 16:16 Blood Pressure 141/88 08/25/24 16:16 Pulse Oximetry 95 08/25/24 16:16 Oxygen Delivery Me thod Room Air 08/25/24 16:16 MDM - Psych Medical Decision Making Medical decision making: Differential diagnosis for patient with reported psychosis with plan for psychiatric admission including but not limited to and based on the above HPI, review of systems and physical exam: concerns for infection, alcohol intoxication, cardiac issues or other medical problems prior to psychiatric admission. Orders placed to evaluate differential diagnosis based on the above differential, HPI and physical exam labwork, ekg ordered to evaluate the pathologies and to clear the patient medically prior to psychiatric admission EKG: Time 1653. Rate 117. Sinus tachycardia, No ST-T changes, no ectopy, normal [place] & QRS intervals, This was reviewed and interpreted by myself the ER physician at 1658 Lab Review: Laboratory results were reviewed and interpreted by myself the emergency room physician. - Medically cleared. - EKG shows no ischemic changes. - Blood alcohol level is negative, as well as salicylate and Tylenol. ? urinalysis and drug screen are pending - No anemia. - BUN and creatinine are within normal limits. I reviewed the patient's medical record. Consultation: I spoke with Dr. Cuello who is on-call for the psychiatry service and is familiar with the patient. He agrees to admission. Assessment and plan: Psychosis Hallucinations Suicidal statements ? IM Juanitodon and IM Ativan in the emergency room -Admission to neuropsychiatric unit for continued evaluation and treatment. - All lab work was reviewed and interpreted personally by myself, the ER physician - Evaluation and treatment of this problem were appropriate in the emergency setting Lab Data 08/25/24 16:28 08/25/24 16:28 Laboratory Results WBC 11.80 10^3/uL (3.29-11.43) H 08/25/24 16: RBC 5.56 10^6/uL (3.85-5.65) 08/25/24 16:28 Hgb 15.80 g/dL (11.27-16.99) 08/25/24 16: Hct 47.0 % (37-53) 08/25/24 16: MCV 84.5 fl (82-101) 08/25/24 16:28 MCH 28.4 pg (27-33) 08/25/24 16:28 MCHC 33.6 g/dL (30-55) 08/25/24 16:28 RDW 13.2 % (12.1-15.1) 08/25/24 16:28 Plt Count 293 10^3/cmm (157-399) 08/25/24 16:28 MPV 9.6 fL (7.4-10.4) 08/25/24 16:28 Neut % (Auto) 59.6 % 08/25/24 16:28 Lymph % (Auto) 31.8 % 08/25/24 16:28 Fisher % (Auto) 6.1 % 08/25/24 16: Eos % (Auto) 1.6 % 08/25/24 16:28 Baso % (Auto) 0.5 % 08/25/24 16:28 Neut # (Auto) 7.03 10^3/uL (1.8-7.7) 08/25/24 16: Lymph # (Auto) 3.8 10^3/uL (0.8-4.8) 08/25/24 16:28 Fisher # (Auto) 0.7 10^3/uL (0.2-0.9) 08/25/24 16: Eos # (Auto) 0.2 10^3/uL (0.0-0.8) 08/25/24 16: Baso # (Auto) 0.1 10^3/uL (0.0-0.1) 08/25/24 16: Nucleated RBC % (auto) 0 % 08/25/24 16: Nucleated RBCs # 0.0 /100WBC 08/25/24 16:28 Sodium 141 mmol/L (136-145) 08/25/24 16:28 Potassium 3.7 mmol/L (3.5-5.1) 08/25/24 16:28 Chloride 102 mmol/L (98-107) 08/25/24 16:28 Carbon Dioxide 27 mmol/L (22-29) 08/25/24 16:28 Anion Gap 15.7 (5-19) 08/25/24 16:28 BUN 11 mg/dL (6-20) 08/25/24 16:28 Creatinine 0.8 mg/dL (0.7-1.2) 08/25/24 16:28 GFR Calculation 108.2 mL/min (90-130) 08/25/24 16:28 Glucose 124 mg/dL (65-115) H 08/25/24 16:28 Calculated Osmolality 293 mOsm/kg (285-295) 08/25/24 16:28 Calcium 9.3 mg/dL (8.5-10.5) 08/25/24 16:28 Total Bilirubin 0.3 mg/dL (0.15-1.2) 08/25/24 16:28 AST 16 U/L (0-40) 08/25/24 16:28 ALT 27 U/L (0-41) 08/25/24 16:28 Alkaline Phosphatase 96 U/L (40-130) 08/25/24 16:28 Total Protein 7.3 g/dL (6.6-8.7) 08/25/24 16:28 Albumin 4.3 g/dL (3.5-5.2) 08/25/24 16:28 Globulin 3.0 g/dL (1.3-4.6) 08/25/24 16:28 TSH 1.42 uIU/mL (0.27-4.20) 08/25/24 16:28 Salicylates < 0.3 mg/dL (3-10) L 08/25/24 16:28 Acetaminophen < 5.0 ug/mL (10-30) L 08/25/24 16:28 Ethyl Alcohol < 10 mg/dL (0-10) 08/25/24 16:28 No radiology studies performed this visit Discharge Plan Discharge Patient Disposition: Admitted As Inpatient Clinical Impression: Acute psychosis, Hallucinations Condition: Stable Coding Level of Care Code ED Pressure Tester Operator for Noe Osorio
[2024-08-25 16:16] VITALS: BP 141/88; PULSE 126; RESP 18; TEMP 36.6; O2SAT 95; BMI 40.6
--- NOTE | 2024-08-25 16:18 | ECG_ITS ---
[facility] Test Date: 2024-08-25 Pat Name: Adama Thompson Department: Room: Gender: Male [employer] Player: : 1985 Requested By: Danay Grant Order Number: [id number] Cordova MD: Heron Martinez M.D. Measurements Intervals [place] Rate: 117 P: 54 OK: 154 QRS: 72 QRSD: 80 T: 59 QT: 304 QTc: 424 Interpretive Statements SINUS TACHYCARDIA Compared to ECG 08/07/2023 00:02:38 Sinus rhythm no longer present Electronically Signed On 08-26-2024 10:21:29 SEAM STAYER by Heron Martinez M.D. [email or web address]
[2024-08-25 16:34] LABS: Basophils # 0.1 10^3/uL (0.0-0.1); Basophils % 0.5 %; Eosinophils # 0.2 10^3/uL (0.0-0.8); Eosinophils % 1.6 %; Lymphocytes # 3.8 10^3/uL (0.8-4.8); Lymphocytes % 31.8 %; Mean Corpuscular HGB Conc 33.6 g/dL (30-55); Mean Corpuscular Hemoglobin 28.4 pg (27-33); Mean Corpuscular Volume 84.5 fl (82-101); Mean Platelet Volume 9.6 fL (7.4-10.4); Monocytes # 0.7 10^3/uL (0.2-0.9); Monocytes % 6.1 %; Neutrophils # 7.03 10^3/uL (1.8-7.7); Neutrophils % 59.6 %; Nucleated Red Blood Cells % 0 %; Platelet Count 293 10^3/cmm (157-399); Red Blood Count 5.56 10^6/uL (3.85-5.65); Red Cell Distribution Width 13.2 % (12.1-15.1)
--- NOTE | 2024-08-25 16:50 | PC.NURSE ---
96 hour hold rights read and reviewed with patient. Patient verbalized understandings. Copy of rights given to patient.
[2024-08-25 17:04] LABS: Alanine Aminotransferase 27 U/L (0-41); Albumin Level 4.3 g/dL (3.5-5.2); Alkaline Phosphatase 96 U/L (40-130); Anion Gap 15.7 (5-19); Aspartate Amino Transferase 16 U/L (0-40); Blood Urea Nitrogen 11 mg/dL (6-20); Calcium 9.3 mg/dL (8.5-10.5); Carbon Dioxide 27 mmol/L (22-29); Chloride 102 mmol/L (98-107); Creatinine Clr Calc Pharmacy 178.8386; Glomerular Filtration Rate 108.2 mL/min (90-130); Glucose 124 mg/dL (65-115); Osmolality Calculated 293 mOsm/kg (285-295); Potassium 3.7 mmol/L (3.5-5.1); Sodium 141 mmol/L (136-145); Thyroid Stimulating Hormone 1.42 uIU/mL (0.27-4.20); Total Bilirubin 0.3 mg/dL (0.15-1.2); Total Protein 7.3 g/dL (6.6-8.7)
[2024-08-25 17:06] LABS: Acetaminophen < 5.0 ug/mL (10-30); Alcohol Level < 10 mg/dL (0-10); Salicylate < 0.3 mg/dL (3-10)
[2024-08-25] MEDS: LORazepam 2 mg/mL INJ 1 mL IM (17:58)
[2024-08-25] MEDS: ziprasidone 20 mg/mL SDV IM (17:59)
[2024-08-25 20:57] VITALS: BP 114/75; PULSE 94; RESP 18; TEMP 36.2; O2SAT 97
[2024-08-25 21:00] VITALS: BP 114/75; PULSE 94; RESP 18; TEMP 36.2; O2SAT 97
[2024-08-25 21:07] VITALS: BP 152/94; PULSE 96; O2SAT 95
[2024-08-25 21:30] LABS: Bilirubin Urine Negative (Negative); Blood Urine Negative (Negative); Glucose Urine UA Negative (Normal); Ketones Urine Negative (Negative); Leukocyte Esterase Urine Negative (Negative); Nitrate Urine Negative (Negative); Protein Urine Negative (Negative); Specific Gravity, Urine 1.024 (1.005-1.030); Urine Appearance Clear (CLEAR); Urine Color Yellow (Yellow)
[2024-08-25 21:36] LABS: Bacteria Urine None Seen /hpf; Hyaline Casts Urine 0-4 /lpf; RBC Urine 0-2 /hpf (0-2); Squamous Epithelial Cell Urine 0-5 /hpf (0-5); WBC Urine 0-5 /hpf (0-5)
[2024-08-25 21:49] LABS: Amphetamines Screen Urine Negative (Negative); Barbiturates Screen Urine Negative (Negative); Benzodiazepines Screen Urine Positive (Negative); Cocaine Screen Urine Negative (Negative); Opiate Screen Urine Negative (Negative); PCP Screen Urine Negative (Negative); THC Screen Urine Negative (Negative)
[2024-08-26 06:00] VITALS: BP 115/70; PULSE 89; RESP 18; TEMP 36.6; O2SAT 97
[2024-08-26 14:00] VITALS: BP 130/83; PULSE 95; RESP 18; O2SAT 99
--- NOTE | 2024-08-26 15:35 | W.PM.NPUH&PS ---
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 Vitals/I&O/Wt Last Vital Signs Temp 98 F 08/26/24 06:00 Pulse 95 08/26/24 14:00 Resp 18 08/26/24 14:00 BP 130/83 08/26/24 14:00 Pulse Ox 99 08/26/24 14:00 O2 Del Method Room Air 08/26/24 14:00 Weight last 48 hrs Weight 136.078 kg Data NPU 08/25/24 16:28 08/25/24 16:28 A&P Assessment and plan (1) Psychotic disorder: (2) Depression: Plan Is a 39-year-old white male involuntarily hospitalized with decline in functioning at home with worsening psychosis currently on no medications at this time. He appears abstinent from illicit drugs and alcohol at this time. 1.? ? Engage? patient in individual ,milieu, and group therapy ?2. ? We will attempt to gather collateral information from previous providers ?3. ? TO-15 minute checks on the unit. ?4.? Recommend sober living treatment at the highest level of care to which the patient is willing to commit. 5. Consider antipsychotic although patient refusing at this time and may require forced medication. Involuntary Hold Information 96 Hour Hold: 96 Hour Involuntary Admission: Yes 96 Hour Hold Ending Date: 09/04/24 96 Hour Hold Ending Time: 16:30 Other Hold: Hold End Date: 09/04/24 Attestations NPU Medical Necessity Statement*: Patient hospitalization is medically necessary and deemed to be the clinically appropriate intervention at this time. We will monitor and initiate medications while making changes as indicated. The patient will be hospitalized at least 2 midnights. His likely length of stay on the neuropsychiatric unit is 5-10 days. Coding Level of Care Code Acute Code for [facility] Diagnoses Psychotic disorder F29 Depression F32.A
[2024-08-26] MEDS: nicotine 2 mg Gum BUCCAL ×2 (18:38→23:03)
[2024-08-26 19:54] VITALS: BP 114/67; PULSE 105; RESP 18; TEMP 36.3; O2SAT 96
[2024-08-27] MEDS: nicotine 2 mg Gum BUCCAL ×3 (04:49→18:20)
[2024-08-27 06:00] VITALS: BP 136/93; PULSE 83; RESP 18; TEMP 36.9; O2SAT 95; BMI 37.0
[2024-08-27 14:00] VITALS: BP 137/89; PULSE 80; RESP 17; TEMP 36.4; O2SAT 96
--- NOTE | 2024-08-27 14:27 | P.NPUPN_ITS ---
Subjective NPU 2 Subjective: 39-year-old male admitted with acute psy chosis and increased paranoia. The patient had reported that he was doing better here. He had currently appeared to be pacing the hallway and appeared to be having a conversation with himself. He had minimized the use of any illicit drugs. He had stated that he did not need any help at this time. He reported no sleep continuity disruption. He had received a as needed medication last night for agitation. He reported that he needed to go home and his hospitalization here was a mistake. Patient's urine drug screen had been negative for any drugs or alcohol. Mental Status Exam 2 MSE Comments: Patient again appeared difficult to engage. He was a physically healthy male disheveled appearance and intense eye contact. His speech was normal in volume, decreased in productivity with use of one word answers and increase in latency of speech. There was signficant psychomotor agitation. He had denied thoughts of hurting himself or others. He is thought process was linear but superficial. His mood was described as good. His affect was mood incongruent and agitated. He appeared to be responding to internal stimuli. There was signficant paranoia appreciated. His insight and judgment are impaired. His impulse control is also impaired. Vitals/I&O/Wt Last Vital Signs Temp 98.4 F 08/27/24 06:00 Pulse 83 08/27/24 06:00 Resp 18 08/27/24 06:00 BP 136/93 08/27/24 06:00 Pulse Ox 95 08/27/24 06:00 O2 Del Method Room Air 08/27/24 06:00 Weight last 48 hrs Weight 123.944 kg Weight 136.078 kg Data NPU 08/25/24 16:28 08/25/24 16:28 A&P Assessment and plan (1) Psychotic disorder: (2) Depression: Plan Is a 39-year-old white male involuntarily hospitalized with decline in functioning at home with worsening psychosis currently on no medications at this time. He appears abstinent from illicit drugs and alcohol at this time. 1.? ? Engage? patient in individual ,milieu, and group therapy ?2. ? We will attempt to gather collateral information from previous providers ?3. ? TO-15 minute checks on the unit. ?4.? Recommend sober living treatment at the highest level of care to which the patient is willing to commit. 5. Consider antipsychotic although patient refusing at this time and may require forced medication. Involuntary Hold Information 2 96 Hour Hold: 96 Hour Involuntary Admission: Yes 96 Hour Hold Ending Date: 09/04/24 96 Hour Hold Ending Time: 16:30 Other Hold: Hold End Date: 09/04/24 Attestations NPU 2 Medical Necessity Statement*: Patient hospitalization is medically necessary and deemed to be the clinically appropriate intervention at this time. We will monitor and initiate medications while making changes as indicated. His likely length of stay on the neuropsychiatric unit is 5-10 days. Coding Level of Care Code Acute Code for g Fwd Diagnoses Psychotic disorder F29 Depression F32.A
[2024-08-27 22:00] VITALS: BP 148/91; PULSE 83; RESP 16; TEMP 36.8; O2SAT 97
[2024-08-28] MEDS: nicotine 2 mg Gum BUCCAL ×5 (00:49→19:20)
[2024-08-28 06:00] VITALS: BP 123/77; PULSE 95; RESP 16; TEMP 36.5; O2SAT 99
[2024-08-28 14:00] VITALS: BP 147/81; PULSE 86; RESP 18; TEMP 36.7; O2SAT 97
--- NOTE | 2024-08-28 15:16 | P.NPUPN_ITS ---
Subjective NPU 2 Subjective: 39-year-old male admitted with acute psy chosis and increased paranoia. Patient had no acts of aggression here. He had reported that he did not wish to take any medications at this time. He had reported adequate sleep. He had appeared to be engaged in conversations with himself and appeared very distracted. He had been seen tapping his fingers on the unit in an odd but consistent manner. He continued to struggle with maintaining appropriate self-care.He had reported that he had been living with his and children although family members had revealed that the patient was no longer living with his now ex- and his children. Mental Status Exam 2 MSE Comments: Patient again appeared difficult to engage. He was a physically healthy male disheveled appearance and intense eye contact. There was evidence of odd repetitive finger movements while sitting in dinner. His speech was normal in volume, decreased in productivity with use of one word answers and increase in latency of speech. There was signficant psychomotor agitation as he was pacing incessantly. He had denied thoughts of hurting himself or others. He is thought process was linear but superficial. His mood was described as good. His affect was mood incongruent and irritable. He appeared to be responding to internal stimuli. There was signficant paranoia appreciated. His insight and judgment are impaired. His impulse control is also impaired. Vitals/I&O/Wt Last Vital Signs Temp 98.1 F 08/28/24 14:00 Pulse 86 08/28/24 14:00 Resp 18 08/28/24 14:00 BP 147/81 08/28/24 14:00 Pulse Ox 97 08/28/24 14:00 O2 Del Method Room Air 08/28/24 14:00 Weight last 48 hrs Weight 123.944 kg Data NPU 08/25/24 16:28 08/25/24 16:28 A&P Assessment and plan (1) Psychotic disorder: (2) Depression: Plan Is a 39-year-old white male involuntarily hospitalized with decline in functioning at home with worsening psychosis currently on no medications at this time. He appears abstinent from illicit drugs and alcohol at this time. 1.? ? Engage? patient in individual ,milieu, and group therapy ?2. ? We will attempt to gather collateral information from previous providers ?3. ? TO-15 minute checks on the unit. ?4.? Recommend sober living treatment at the highest level of care to which the patient is willing to commit. 5. Consider antipsychotic although patient refusing at this time and may require forced medication. Involuntary Hold Information 2 96 Hour Hold: 96 Hour Involuntary Admission: Yes 96 Hour Hold Ending Date: 09/04/24 96 Hour Hold Ending Time: 16:30 Other Hold: Hold End Date: 09/04/24 Attestations NPU 2 Medical Necessity Statement*: Patient hospitalization is medically necessary and deemed to be the clinically appropriate intervention at this time. We will monitor and initiate medications while making changes as indicated. His likely length of stay on the neuropsychiatric unit is 5-10 days. Coding Level of Care Code Acute Code for [facility] Diagnoses Psychotic disorder F29 Depression F32.A
[2024-08-28 22:00] VITALS: BP 167/75; PULSE 75; RESP 18; O2SAT 95
[2024-08-29 06:00] VITALS: BP 116/75; PULSE 68; RESP 17; TEMP 36.4; O2SAT 97
[2024-08-29] MEDS: nicotine 2 mg Gum BUCCAL ×3 (07:17→17:33)
[2024-08-29 14:00] VITALS: BP 158/90; PULSE 83; RESP 18; O2SAT 96
--- NOTE | 2024-08-29 15:58 | P.NPUPN_ITS ---
Subjective NPU 2 Subjective: 39-year-old male admitted with acute psy chosis and increased paranoia. The patient continued to walk aimlessly on the floor engaged in conversation and appearing distracted by his thoughts. The patient had stated that he wished to know who was doing the air treatments here as he stated that he was uncertain as to whether they were contracted or local. The patient had been minimally engaged in group. He had continued to report that he was doing fine. He had reported no side effects from his medication. The patient had continued to struggle with completion of activities of daily living including showering and brushing. He had reported that he had been living with his and children although family members had revealed that the patient was no longer living with his now ex- and his children. Mental Status Exam 2 MSE Comments: Patient again appeared difficult to engage. He was a physically healthy bearded male disheveled appearance and intense eye contact. There was evidence of odd repetitive finger movements while walking aimlessly throughout the unit. His speech was normal in volume, decreased in productivity with use of one word answers and increase in latency of speech. There was signficant psychomotor agitation as he was pacing incessantly. He minimized homicidal and suicidal ideation. He had denied thoughts of hurting himself or others. He is thought process was linear but superficial. His mood was described as fine. His affect was mood incongruent and irritable. He appeared to be responding to internal stimuli. There was signficant paranoia appreciated. His insight and judgment are impaired. His impulse control is also impaired. Vitals/I&O/Wt Last Vital Signs Temp 97.5 F L 08/29/24 06:00 Pulse 83 08/29/24 14:00 Resp 18 08/29/24 14:00 BP 158/90 08/29/24 14:00 Pulse Ox 96 08/29/24 14:00 O2 Del Method Room Air 08/29/24 14:00 Data NPU 08/25/24 16:28 08/25/24 16:28 A&P Assessment and plan (1) Psychotic disorder: (2) Depression: Plan Is a 39-year-old white male involuntarily hospitalized with decline in functioning at home with worsening psychosis currently on no medications at this time. He appears abstinent from illicit drugs and alcohol at this time. 1.? ? Engage? patient in individual ,milieu, and group therapy ?2. ? We will attempt to gather collateral information from previous providers ?3. ? TO-15 minute checks on the unit. ?4.? Recommend sober living treatment at the highest level of care to which the patient is willing to commit. 5. Continue Invega 6mg daily. Involuntary Hold Information 2 96 Hour Hold: 96 Hour Involuntary Admission: Yes 96 Hour Hold Ending Date: 09/04/24 96 Hour Hold Ending Time: 16:30 Other Hold: Hold End Date: 09/04/24 Attestations NPU 2 Medical Necessity Statement*: Patient hospitalization is medically necessary and deemed to be the clinically appropriate intervention at this time. We will monitor and initiate medications while making changes as indicated. His likely length of stay on the neuropsychiatric unit is 5-10 days. Coding Level of Care Code Acute Code for [facility] Fwd Diagnoses Psychotic disorder F29 Depression F32.A
[2024-08-29 20:01] VITALS: BP 119/74; PULSE 71; RESP 18; TEMP 36.4; O2SAT 96
[2024-08-30] MEDS: nicotine 2 mg Gum BUCCAL ×3 (04:15→20:04)
[2024-08-30 06:00] VITALS: BP 128/84; PULSE 98; RESP 18; TEMP 37; O2SAT 96
[2024-08-30 14:00] VITALS: BP 111/76; PULSE 89; RESP 18; TEMP 36.7; O2SAT 95
--- NOTE | 2024-08-30 17:14 | P.NPUPN_ITS ---
Subjective NPU 2 Subjective: 39-year-old male admitted with acute psy chosis and increased paranoia. The patient continued to brood on the unit while walking directionless on the floor engaged in conversation and appearing distracted by his thoughts. He had spoken to staff and patients about dismembering various people. The patient had refused to take any medications at this time. The patient had continued to struggle with completion of activities of daily living including showering and brushing. Mental Status Exam 2 MSE Comments: Patient again appeared difficult to engage. He was a physically healthy bearded male disheveled appearance and intense eye contact. There was evidence of odd repetitive finger movements while walking aimlessly throughout the unit. His speech was normal in volume, decreased in productivity with use of one word answers and increase in latency of speech. There was signficant psychomotor agitation as he was pacing incessantly. He minimized homicidal and suicidal ideation. He had denied thoughts of hurting himself or others. He is thought process was linear but superficial. His mood was described as ok. His affect was mood incongruent and irritable. He appeared to be responding to internal stimuli. There was signficant paranoia appreciated. His insight and judgment are impaired. His impulse control is also impaired. Vitals/I&O/Wt Last Vital Signs Temp 98.0 F 08/30/24 14:00 Pulse 89 08/30/24 14:00 Resp 18 08/30/24 14:00 BP 111/76 08/30/24 14:00 Pulse Ox 95 08/30/24 14:00 O2 Del Method Room Air 08/30/24 14:00 08/30/24 08/30/24 08/30/24 06:59 14:59 22:59 Intake Total 480 / 480 Balance 480 / 480 Data NPU 08/25/24 16:28 08/25/24 16:28 A&P Assessment and plan (1) Psychotic disorder: (2) Depression: Plan Is a 39-year-old white male involuntarily hospitalized with decline in functioning at home with worsening psychosis currently on no medications at this time. He appears abstinent from illicit drugs and alcohol at this time. 1.? ? Engage? patient in individual ,milieu, and group therapy ?2. ? We will attempt to gather collateral information from previous providers ?3. ? TO-15 minute checks on the unit. ?4. ? Recommend sober living treatment at the highest level of care to which the patient is willing to commit. 5. Continue Invega 6mg daily. Patient refusing now and may require forced medication. Involuntary Hold Information 2 96 Hour Hold: 96 Hour Involuntary Admission: Yes 96 Hour Hold Ending Date: 09/04/24 96 Hour Hold Ending Time: 16:30 Other Hold: Hold End Date: 09/04/24 Attestations NPU 2 Medical Necessity Statement*: Patient hospitalization is medically necessary and deemed to be the clinically appropriate intervention at this time. We will monitor and initiate medications while making changes as indicated. His likely length of stay on the neuropsychiatric unit is 5-10 days. Coding Level of Care Code Acute Code for [facility] Fwd Diagnoses Psychotic disorder F29 Depression F32.A
[2024-08-30 19:44] VITALS: BP 131/70; PULSE 77; RESP 16; TEMP 36.6; O2SAT 99
[2024-08-31 06:00] VITALS: BP 132/85; PULSE 81; RESP 18; TEMP 36.8; O2SAT 99
[2024-08-31] MEDS: nicotine 2 mg Gum BUCCAL (06:39)
--- NOTE | 2024-08-31 13:06 | P.NPUPN_ITS ---
Subjective NPU 2 Subjective: 39-year-old male admitted with acute psy chosis and increased paranoia. He has a past history of significant substance use. He continued to walk through the hallway with active movements with his hands and mumbling words to himself. He had continued to state having some thoughts about decapacitating people. He did not a complete any activities of daily living. Mental Status Exam 2 MSE Comments: He was a physically healthy bearded male disheveled appearance and intense eye contact. There was evidence of odd finger movements while walking aimlessly throughout the unit. His speech was normal in volume, decreased in productivity with use of one word answers and increase in latency of speech. There was signficant psychomotor agitation as he was pacing incessantly. He minimized homicidal and suicidal ideation. He had denied thoughts of hurting himself or others. His thought process was nonlinear. His mood was described as good. His affect was mood incongruent and irritable. He appeared to be responding to internal stimuli. There was significant paranoia appreciated. His insight and judgment are impaired. His impulse control is also impaired. Vitals/I&O/Wt Last Vital Signs Temp 98.2 F 08/31/24 06:00 Pulse 81 08/31/24 06:00 Resp 18 08/31/24 06:00 BP 132/85 08/31/24 06:00 Pulse Ox 99 08/31/24 06:00 O2 Del Method Room Air 08/31/24 06:00 08/30/24 08/31/24 08/31/24 22:59 06:59 14:59 Intake Total 480 / 960 Balance 480 / 960 Data NPU 08/25/24 16:28 08/25/24 16:28 A&P Assessment and plan (1) Psychotic disorder: (2) Depression: Plan Is a 39-year-old white male involuntarily hospitalized with decline in functioning at home with worsening psychosis currently on no medications at this time. He appears abstinent from illicit drugs and alcohol at this time. 1.? ? Engage? patient in individual ,milieu, and group therapy ?2. ? We will attempt to gather collateral information from previous providers ?3. ? TO-15 minute checks on the unit. ?4. ? Recommend sober living treatment at the highest level of care to which the patient is willing to commit. 5. Continue Invega 6mg daily. Patient refusing now and may require forced medication. Involuntary Hold Information 2 96 Hour Hold: 96 Hour Involuntary Admission: Yes 96 Hour Hold Ending Date: 09/04/24 96 Hour Hold Ending Time: 16:30 Other Hold: Hold End Date: 09/04/24 Attestations NPU 2 Medical Necessity Statement*: Patient hospitalization is medically necessary and deemed to be the clinically appropriate intervention at this time. We will monitor and initiate medications while making changes as indicated. His likely length of stay on the neuropsychiatric unit is 5-10 days. Coding Level of Care Code Acute Code for [facility]wd Diagnoses Psychotic disorder F29 Depression F32.A
[2024-08-31 14:00] VITALS: BP 104/56; PULSE 127; RESP 18; TEMP 37.1; O2SAT 96
[2024-08-31 20:16] VITALS: BP 115/68; PULSE 70; RESP 18; TEMP 36.4; O2SAT 98
[2024-09-01 06:00] VITALS: BP 130/76; PULSE 86; RESP 18; TEMP 36.6; O2SAT 98
[2024-09-01] MEDS: nicotine 2 mg Gum BUCCAL ×4 (09:19→20:22)
--- NOTE | 2024-09-01 10:44 | P.NPUPN_ITS ---
Subjective NPU 2 Subjective: 39-year-old male admitted with acute psy chosis and increased paranoia. The patient continued to walk incessantly on the unit while making unusual gestures and appearing to be having a conversation with himself. Patient had refused any medications and stated that he did not need any medications currently. He had not required any as needed medications for aggression currently and had not spoken today about dismember ring other human beings. Mental Status Exam 2 MSE Comments: He was a physically healthy bearded male disheveled appearance and intense but fleeting eye contact. He was brooding. There was evidence of odd hand movements and tapping of his fingers while walking aimlessly throughout the unit. His speech was normal in volume, decreased in productivity with use of one word answers and increase in latency of speech. There was signficant psychomotor agitation as he was pacing incessantly. He minimized homicidal and suicidal ideation. He had denied thoughts of hurting himself or others. His thought process was nonlinear. His mood was described as ok His affect was mood incongruent and irritable. He appeared to be responding to internal stimuli. There was significant paranoia appreciated. His insight and judgment are impaired. His impulse control is also impaired. Vitals/I&O/Wt Last Vital Signs Temp 97.8 F 09/01/24 06:00 Pulse 86 09/01/24 06:00 Resp 18 09/01/24 06:00 BP 130/76 09/01/24 06:00 Pulse Ox 98 09/01/24 06:00 O2 Del Method Room Air 09/01/24 06:00 08/31/24 09/01/24 09/01/24 22:59 06:59 14:59 Intake Total 480 / 480 Balance 480 / 480 Data NPU 08/25/24 16:28 08/25/24 16:28 A&P Assessment and plan (1) Psychotic disorder: (2) Depression: Plan Is a 39-year-old white male involuntarily hospitalized with decline in functioning at home with worsening psychosis currently on no medications at this time. He appears abstinent from illicit drugs and alcohol at this time. 1.? ? Engage? patient in individual ,milieu, and group therapy ?2. ? We will attempt to gather collateral information from previous providers ?3. ? TO-15 minute checks on the unit. ?4. ? Recommend sober living treatment at the highest level of care to which the patient is willing to commit. 5. Patient refusing Invega 6mg daily. He will require forced medication. Involuntary Hold Information 2 96 Hour Hold: 96 Hour Involuntary Admission: Yes 96 Hour Hold Ending Date: 09/04/24 96 Hour Hold Ending Time: 16:30 Other Hold: Hold End Date: 09/04/24 Attestations NPU 2 Medical Necessity Statement*: Patient hospitalization is medically necessary and deemed to be the clinically appropriate intervention at this time. We will monitor and initiate medications while making changes as indicated. His likely length of stay on the neuropsychiatric unit is 5-10 days. Coding Level of Care Code Acute Code for [facility] Fwd Diagnoses Psychotic disorder F29 Depression F32.A
[2024-09-01 14:00] VITALS: BP 134/47; PULSE 66; RESP 16; TEMP 36.4; O2SAT 97
--- NOTE | 2024-09-01 16:35 | PC.NURSE ---
THIS NURSE ASKED PT IF THERE WAS ANYTHING HE NEEDED. PT STATED NO, I'M JUST WAITING FOR DINNER. THIS NURSE ATTEMPTING TO HAVE POLITE CONVERSATION WITH PT ASKED DO YOU REMEMBER WHAT YOU GUYS ARE HAVING FOR DINNER. TO WHICH THE PT RESPONDED WITH I DON'T KNOW LONG IT IS NOT THAT SHIT CHICKEN AGAIN. THIS NURSE RESPONDED TO PT WITH OH IS THAT WHAT YOU HAD FOR LUNCH? PT REPLIED WITH I DON'T REMEMBER, I AM TO FOCUSED ON HOW TO GET THE FUCK OUT OF HERE THEN HOW TO GET THE FUCK HOME CAUSE IT IS A LONG WAY AWAY. THIS NURSE ASKED WHERE PT LIVED SO THAT I COULD GIVE COMFORT TO PT ABOUT HOSPITAL STAFF ASSISTING IN FINDING A RIDE HOME. PT RESPONDED TO THIS NURSE WITH [facility]. THIS NURSE SAID WELL WE ARE IN [facility]. TO WHICH PT INTERRUPTED BY STATING NO THE OTHER [facility], DIDN'T YOU KNOW THERE ARE 3 OF THEM IN [place]? THIS NURSE RESPONDED WITH NO, I DON'T BELIEVE SO, YOU MEAN THERE ARE MORE THAN ONE IN [place]? PT RESPONDED WITH YES AND I DO NOT LIVE IN THIS ONE. THIS NURSE ATTEMPTED TO IDENTIFY THE EXTENT OF PT DELUSION AND ASKED WELL, DO YOU LIVE IN A CITY OR A TOWN? TO WHICH PT RESPONDED WITH [facility]. THIS NURSE INFORMED PT THAT WE ARE CURRENTLY IN [place], [place]. PT THEN RESPONDED WITH NO NOT THIS [facility], THERE IS A HOUSE MISSING ON [address] WAIT, LET ME ASK YOU WHAT YEAR IS IT? THIS NURSE RESPONDED 2023, WHAT YEAR DO YOU THINK IT IS. PT STATED IT IS 2025 THEN WALKED AWAY.
[2024-09-01 21:32] VITALS: BP 153/92; PULSE 82; RESP 18; TEMP 36.3; O2SAT 96
[2024-09-02 05:17] VITALS: BP 162/83; PULSE 73; RESP 20; TEMP 36.4; O2SAT 96
--- NOTE | 2024-09-02 07:51 | PC.NURSE ---
Morning assessment During morning assessment, patient was irritable. Patient denies SI, HI, depression, anxiety, pain, AVH. Patient not willing to talk with nurse beyond yes/no answers. Patient seen pacing the asif, patting belly with right hand, and whispering to self. Patient informed that staff are here for any needs. Understanding verbalized.
[2024-09-02] MEDS: nicotine 2 mg Gum BUCCAL ×5 (09:13→19:53)
--- NOTE | 2024-09-02 10:07 | PC.NURSE ---
requesting hep-burn for his internal eye retina ... saying he has an internal blood clot going around the top of his head
--- NOTE | 2024-09-02 10:48 | PC.NURSE ---
Patient requesting a nicotine gum. This nurse said he would have to wait until 1113. Patient slammed his fists on the counter saying that he isn't going to be medicated, that everytime this nurse and SEAN Lambert are here, we put him on medications. Patient said that medications cause him a blood clot and that this nurse and SEAN are going to lose our medical licenses if we give him medications. 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 Patient yelling. Patient said it isn't a joke.
--- NOTE | 2024-09-02 11:04 | PC.NURSE ---
This nurse attempted to have patient sign consent for telehealth psychiatry. Patient refused saying that he doesn't need psychiatry, that he is going to court on the third and he will be released, that he is only here because of the implant in his head. This nurse asked to clarify if he would be agreeable to visiting with Dr. Ann over the tablet. Patient refused, saying he is not okay. Patient became agitated.
--- NOTE | 2024-09-02 12:06 | PC.NURSE ---
Patient asked this nurse what today's date is. This nurse told him September 02. Patient asked what year. This nurse answered 2023. Patient said, how the fuck is that possible? How the fuck did we skip two years? It it 2025.
[2024-09-02 14:00] VITALS: BP 141/86; PULSE 79; RESP 16; O2SAT 96
[2024-09-02 19:37] VITALS: BP 164/84; PULSE 104; RESP 20; TEMP 36.8; O2SAT 97
--- NOTE | 2024-09-02 21:45 | P.NPUPN_ITS ---
Subjective NPU 2 Subjective: Patient presented today reporting that he is fine but told staff he did not want to speak to this loan underwriter. Once we spoke though he was cooperative with the interview but seemingly on the edge of irritability. He kept referencing something surrounding [employer]. He said he was working at [employer] and that used to be a secret but now is being broadcast. That he went on a ramp talking about being human trafficked that is why he is at the hospital. Some relation to [place] and he would say some names of places he went that were not likely real but [place] sounding. He seemed to have significant grandiose thoughts that he was at the center of some good and bad things. 1 good thing was that he did some research on what sounded like amlodipine, and that because of that people with heart conditions could be saved he reported. We also talked about having some sector devices that were broken but still contained in his eyes or head that could be a problem. He continues to report that he cannot take his medication because that will cause blood clots. We discussed the hearing scheduled for the beginning of the week. Mental Status Exam 2 MSE Comments: This is an obese white male in hospital scrubs with limited grooming and eye contact with a significant jackson. No abnormal movements except for psychomotor agitation. Mostly cooperative with exam in mild to moderate distress. Speech was normal rate and volume. Mood described as okay, affect irritable and guarded. Thought process linear but at times disorganized. Thought contact: patient denies suicidal or homicidal ideation, there were no delusions reported but some paranoia, guardedness as well as grandiosity note. Patient endorsed auditory but denied visual hallucinations. Attention and concentration appeared intact and memory appeared unreliable but none were formally tested. Patient is alert and oriented times person and place. Insight, judgment and impulse control are all impaired. Vitals/I&O/Wt Last Vital Signs Temp 98.3 F 09/02/24 19:37 Pulse 104 H 09/02/24 19:37 Resp 20 H 09/02/24 19:37 BP 164/84 09/02/24 19:37 Pulse Ox 97 09/02/24 19:37 O2 Del Method Room Air 09/02/24 19:37 09/02/24 09/02/24 09/02/24 06:59 14:59 22:59 Intake Total 480 / 480 Balance 480 / 480 Weight last 48 hrs Weight 118.66 kg Data NPU 08/25/24 16:28 08/25/24 16:28 A&P Assessment and plan (1) Psychotic disorder: (2) Depression: Plan This is a 39-year-old white male involuntarily hospitalized with decline in functioning at home with worsening psychosis currently on no medications at this time. He appears abstinent from illicit drugs and alcohol at this time. 1.? ? Encouraged individual, group and milieu therapy. ?2. ? We will attempt to gather collateral information from previous providers ?3. ? TO-15 minute checks on the unit. ?4. ? Recommend sober living treatment at the highest level of care to which the patient is willing to commit. 5. Patient refusing Invega 6mg daily. He will require forced medication once on 21-day hold. Involuntary Hold Information 2 96 Hour Hold: 96 Hour Involuntary Admission: Yes 96 Hour Hold Ending Date: 09/04/24 96 Hour Hold Ending Time: 16:30 Other Hold: Hold End Date: 09/04/24 Attestations NPU 2 Medical Necessity Statement*: Inpatient hospitalization is medically necessary and the clinically appropriate intervention at this time. We will monitor/initiate medications and make changes as indicated. Likely length of stay 7 to 10 days.. Coding Level of Care Code Acute Code for g Fwd Diagnoses Psychotic disorder F29 Depression F32.A
--- NOTE | 2024-09-03 06:31 | PC.NURSE ---
vs not collected resp 17 charge notified
--- NOTE | 2024-09-03 11:13 | P.NPUPN_ITS ---
Subjective NPU 2 Subjective: Patient presented today reporting that things are going okay. He feels fairly convinced that when he goes report he will be released and feels that things surrounding [employer] will all be seen as real and valid. Staff report him pacing the floor with an odd idiosyncratic patting of his body talking to himself which is also identified and direct observation. He continues to refuse medication due to reported side effect of blood clots. Mental Status Exam 2 MSE Comments: This is an obese white male in hospital scrubs with limited grooming and eye contact with a significant jackson. No abnormal movements except for psychomotor agitation. Mostly cooperative with exam in mild to moderate distress. Speech was normal rate and volume. Mood described as okay, affect irritable and guarded. Thought process linear but at times disorganized. Thought contact: patient denies suicidal or homicidal ideation, there were no delusions reported but some paranoia, guardedness as well as grandiosity note. Patient endorsed auditory but denied visual hallucinations. Attention and concentration appeared intact and memory appeared unreliable but none were formally tested. Patient is alert and oriented times person and place. Insight, judgment and impulse control are all impaired. Vitals/I&O/Wt Last Vital Signs Temp 98.3 F 09/02/24 19:37 Pulse 104 H 09/02/24 19:37 Resp 20 H 09/02/24 19:37 BP 164/84 09/02/24 19:37 Pulse Ox 97 09/02/24 19:37 O2 Del Method Room Air 09/02/24 19:37 09/02/24 09/03/24 09/03/24 22:59 06:59 14:59 Intake Total 480 / 480 Balance 480 / 480 Weight last 48 hrs Weight 118.66 kg Data NPU 08/25/24 16:28 08/25/24 16:28 A&P Assessment and plan (1) Psychotic disorder: (2) Depression: Plan This is a 39-year-old white male involuntarily hospitalized with decline in functioning at home with worsening psychosis currently on no medications at this time. He appears abstinent from illicit drugs and alcohol at this time. 1.? ? Encouraged individual, group and milieu therapy. ?2. ? We will attempt to gather collateral information from previous providers ?3. ? TO-15 minute checks on the unit. ?4. ? Recommend sober living treatment at the highest level of care to which the patient is willing to commit. 5. Patient refusing Invega 6mg daily. He will require forced medication once on 21-day hold. Involuntary Hold Information 2 96 Hour Hold: 96 Hour Involuntary Admission: Yes 96 Hour Hold Ending Date: 09/04/24 96 Hour Hold Ending Time: 16:30 Other Hold: Hold End Date: 09/04/24 Attestations NPU 2 Medical Necessity Statement*: Inpatient hospitalization is medically necessary and the clinically appropriate intervention at this time. We will monitor/initiate medications and make changes as indicated. Likely length of stay 7 to 10 days.. Coding Level of Care Code Acute Code for Chg Fwd Diagnoses Psychotic disorder F29 Depression F32.A
[2024-09-03] MEDS: nicotine 2 mg Gum BUCCAL ×2 (13:32→18:29)
[2024-09-03 13:56] VITALS: BP 124/81; PULSE 82; RESP 17; TEMP 36.5; O2SAT 97
[2024-09-03 19:48] VITALS: BP 160/98; PULSE 92; RESP 20; TEMP 36.6; O2SAT 99
[2024-09-04] MEDS: nicotine 2 mg Gum BUCCAL ×4 (03:56→20:05)
[2024-09-04 04:40] VITALS: BP 141/97; PULSE 88; RESP 20; TEMP 36.3; O2SAT 97
--- NOTE | 2024-09-04 11:16 | P.NPUPN_ITS ---
Subjective NPU 2 Subjective: Patient presented today reporting that he was upset. Throughout the day he was ranting about having to be here and not wanting the 96-hour hold to be enforced and not wanting to be on a 21-day hold. We discussed the fact that the court hearing represented his opportunity to make that argument in front of the court and make sure that the court identified the reasons that he feels strongly that he should not be here and does not need the medications we are recommending. We discussed the fact that the court would make the final decision about whether he would need to stay and whether he would need to take the medications we are recommending. He continued to discuss multiple conspiracy theories per staff reports and direct conversation. Mental Status Exam 2 MSE Comments: This is an obese white male in hospital scrubs with limited grooming and eye contact with a significant jackson. No abnormal movements except for psychomotor agitation. Mostly cooperative with exam in moderate to extreme distress. Speech was increased rate and volume and somewhat pressured. Mood described as okay, affect irritable and guarded. Thought process linear but at times disorganized. Thought contact: patient denies suicidal or homicidal ideation, there were no delusions reported but some paranoia, guardedness as well as grandiosity note. Patient endorsed auditory but denied visual hallucinations. Attention and concentration appeared intact and memory appeared unreliable but none were formally tested. Patient is alert and oriented times person and place. Insight, judgment and impulse control are all impaired. Vitals/I&O/Wt Last Vital Signs Temp 97.4 F L 09/04/24 04:40 Pulse 88 09/04/24 04:40 Resp 20 H 09/04/24 04:40 BP 141/97 09/04/24 04:40 Pulse Ox 97 09/04/24 04:40 O2 Del Method Room Air 09/04/24 04:40 Weight last 48 hrs Weight 118.66 kg Data NPU 08/25/24 16:28 08/25/24 16:28 A&P Assessment and plan (1) Psychotic disorder: (2) Depression: Plan This is a 39-year-old white male involuntarily hospitalized with decline in functioning at home with worsening psychosis currently on no medications at this time. He appears abstinent from illicit drugs and alcohol at this time. 1.? ? Encouraged individual, group and milieu therapy. ?2. ? We will attempt to gather collateral information from previous providers ?3. ? TO-15 minute checks on the unit. ?4. ? Recommend sober living treatment at the highest level of care to which the patient is willing to commit. 5. Patient refusing Invega 6mg daily. He will require forced medication once on 21-day hold. 21-day hold hearing tomorrow. Involuntary Hold Information 2 96 Hour Hold: 96 Hour Involuntary Admission: Yes 96 Hour Hold Ending Date: 09/04/24 96 Hour Hold Ending Time: 16:30 Other Hold: Hold End Date: 09/04/24 Attestations NPU 2 Medical Necessity Statement*: Inpatient hospitalization is medically necessary and the clinically appropriate intervention at this time. We will monitor/initiate medications and make changes as indicated. Likely length of stay 7 to 10 days.. Coding Level of Care Code Acute Code for Chg Fwd Diagnoses Psychotic disorder F29 Depression F32.A
[2024-09-04 13:55] VITALS: BP 101/61; PULSE 102; RESP 16; TEMP 37; O2SAT 96
[2024-09-04 21:40] VITALS: BP 155/78; PULSE 71; RESP 16; TEMP 36.6; O2SAT 98
[2024-09-05 06:00] VITALS: BP 145/89; PULSE 84; RESP 16; TEMP 36.4; O2SAT 97
[2024-09-05] MEDS: nicotine 2 mg Gum BUCCAL ×4 (07:10→17:59)
[2024-09-05 14:00] VITALS: BP 142/84; PULSE 87; RESP 18; TEMP 36.6; O2SAT 98
--- NOTE | 2024-09-05 14:28 | PC.NURSE ---
PT IS OFF THE UNIT WITH [facility] FOR [address] WALKED OFF THE UNIT AT 1427
--- NOTE | 2024-09-05 15:33 | PC.NURSE ---
PT BACK ON THE UNIT AT [address]
--- NOTE | 2024-09-05 18:25 | P.NPUPN_ITS ---
Subjective NPU 2 Subjective: Patient presented today reporting that he is doing okay. He went to the 21-day hold hearing and displayed his psychosis while in the court room and longstanding. The 21-day hold was granted and he was very adamant back on the unit that he did not need medication and we discussed the likelihood of initiating forced medication, specifically with the Invega tomorrow. He was very upset discussing that his rights were being violated and we discussed the outcome of the hearing granting us the ability to treat him appropriately per medical standards. He continued to deny having any need for any psychotropic medication. Mental Status Exam 2 MSE Comments: This is an obese white male in hospital scrubs with limited grooming and eye contact with a significant jackson. No abnormal movements except for psychomotor agitation. Mostly cooperative with exam in moderate to extreme distress. Speech was increased rate and volume and somewhat pressured. Mood described as okay, affect irritable and guarded. Thought process linear but at times disorganized. Thought contact: patient denies suicidal or homicidal ideation, there were no delusions reported but some paranoia, guardedness as well as grandiosity note. Patient endorsed auditory but denied visual hallucinations. Attention and concentration appeared intact and memory appeared unreliable but none were formally tested. Patient is alert and oriented times person and place. Insight, judgment and impulse control are all impaired. Vitals/I&O/Wt Last Vital Signs Temp 97.9 F 09/05/24 20:30 Pulse 86 09/05/24 20:30 Resp 20 H 09/05/24 20:30 BP 133/85 09/05/24 20:30 Pulse Ox 98 09/05/24 20:30 O2 Del Method Room Air 09/05/24 20:30 Data NPU 08/25/24 16:28 08/25/24 16:28 A&P Assessment and plan (1) Psychotic disorder: (2) Depression: Plan This is a 39-year-old white male involuntarily hospitalized with decline in functioning at home with worsening psychosis currently on no medications at this time. He appears abstinent from illicit drugs and alcohol at this time. 1.? ? Encouraged individual, group and milieu therapy. ?2. ? We will attempt to gather collateral information from previous providers ?3. ? TO-15 minute checks on the unit. ?4. ? Recommend sober living treatment at the highest level of care to which the patient is willing to commit. 5. Patient refusing Invega 6mg daily. He will require forced medication once on 21-day hold. 21-day hold hearing held and 21-day hold granted. Will likely do forced medication tomorrow. Involuntary Hold Information 2 96 Hour Hold: 96 Hour Involuntary Admission: Yes 96 Hour Hold Ending Date: 09/04/24 96 Hour Hold Ending Time: 16:30 Other Hold: Hold End Date: 09/04/24 Attestations NPU 2 Medical Necessity Statement*: Inpatient hospitalization is medically necessary and the clinically appropriate intervention at this time. We will monitor/initiate medications and make changes as indicated. Likely length of stay 7 to 10 days. Coding Level of Care Code Acute Code for g Fwd Diagnoses Psychotic disorder F29 Depression F32.A
[2024-09-05 20:30] VITALS: BP 133/85; PULSE 86; RESP 20; TEMP 36.6; O2SAT 98
[2024-09-06] MEDS: nicotine 2 mg Gum BUCCAL ×4 (05:17→20:42)
[2024-09-06 06:00] VITALS: BP 135/79; PULSE 72; RESP 20; TEMP 36.6; O2SAT 97
--- NOTE | 2024-09-06 09:33 | PC.NURSE ---
CONTINUES TO PACE HALLWAYS TAPING ON HIS CHEST AND BODY, OBSERVED SPEAKING TO UNSEEN OTHERS UNDER HIS BREATH. PT DENIES SI/HI AND AVH AT THIS TIME BUT IS OBSERVED RESPONDING TO INTERNAL AND EXTERNAL STIMULI. NOTED TO HAVE A FLAT AFFECT AND DEPRESSED MOOD. OBSERVED HAVING TICS AND TAPPING EXCESSIVELY ON HIS BODY. PT CONTINUES TO REFUSE MEDICATIONS. RATES ANXIETY AND DEPRESSION 0/10. NEGATIVE AND IRRITABLE WITH STAFF. STAFF REPORTS PT SLEPT 6-7 HOURS. PT STATES HE SLEPT GOOD. PT STATES HE HAS NO GOAL. ALL QUESTIONS ANSWERED AND SUPPORT VOICED.
[2024-09-06 14:00] VITALS: BP 121/86; PULSE 90; RESP 18; O2SAT 97
--- NOTE | 2024-09-06 14:04 | PC.NURSE ---
NEW ORDERS RECEIVED TO GIVE INVEGA 234 MG IM TO DELTOID NOW. PT CONTINUES TO STATE HE DOES NOT WANT MEDICATIONS DESPITE EDUCATION. SUPPORT VOICED.
[2024-09-06] MEDS: paliperidone palmitate 234 mg Syringe IM (14:50)
--- NOTE | 2024-09-06 14:51 | PC.NURSE ---
PT OFFERED INVEGA INJECTION. PT DECLINES STATING I ALREADY HAVE ENOUGH MEDICATION IN ME FOR THE YEAR TO KEEP THE BLOOD CLOTS OUT OF MY BODY. PT WAS EDUCATED AGAIN ON THE INVEGA INJECTION AND WHY DR. CASILLAS WANTS HIM TO TAKE IT. PT CONTINUES TO DECLINE. SECURITY WAS CALLED FOR STANDBY ASSISTANCE TO GIVE THE INJECTION. ATIVAN, HALDOL AND BENADRYL WAS ALSO PULLED OUT TO GIVE IF NEEDED TO CALM PT. STAFF APPROACHED PT WITH INJECTIONS AND SECURITY ASKED PT TO TAKE THE INJECTION. PT YELLED I'M NOT ADDRESSING YOU I AM ADDRESSING THE MEDICAL STAFF. JUST GIVE ME THE INVEGA. I'M NOT TAKING THAT OTHER SHIT SO YOU ALL CAN KNOCK ME OUT AND DO WEIRD SHIT TO ME. ANA MARÍA VIERA ADMINISTERED INVEGA 234 MG TO LEFT DELTOID WITHOUT ANY ISSUE. PT WAS NOT GIVEN ATIVAN, BENADRYL OR HALDOL DUE TO PT TAKING THE INVEGA INJECTION WILLINGLY. ALL QUESTIONS WERE ANSWERED AND SUPPORT VOICED.
--- NOTE | 2024-09-06 17:58 | P.NPUPN_ITS ---
Subjective NPU 2 Subjective: Patient presented today reporting that he is doing okay. He identified that he excepted his shot. However he did actually need some significant coaxing to take the injection. He was very irritable and not really wanting to talk. He continued to report he did not need the medication. Mental Status Exam 2 MSE Comments: This is an obese white male in hospital scrubs with limited grooming and eye contact with a significant jackson. No abnormal movements except for psychomotor agitation. Mostly cooperative with exam in moderate distress. Speech was increased rate and volume and somewhat pressured. Mood described as okay, affect irritable and guarded. Thought process linear but at times disorganized. Thought contact: patient denies suicidal or homicidal ideation, there were no delusions reported but some paranoia, guardedness as well as grandiosity note. Patient endorsed auditory but denied visual hallucinations. Attention and concentration appeared intact and memory appeared unreliable but none were formally tested. Patient is alert and oriented times person and place. Insight, judgment and impulse control are all impaired. Vitals/I&O/Wt Last Vital Signs Temp 97.9 F 09/06/24 06:00 Pulse 90 09/06/24 14:00 Resp 18 09/06/24 14:00 BP 121/86 09/06/24 14:00 Pulse Ox 97 09/06/24 14:00 O2 Del Method Room Air 09/06/24 06:00 Data NPU 08/25/24 16:28 08/25/24 16:28 A&P Assessment and plan (1) Psychotic disorder: (2) Depression: Plan This is a 39-year-old white male involuntarily hospitalized with decline in functioning at home with worsening psychosis currently on no medications at this time. He appears abstinent from illicit drugs and alcohol at this time. 1.? ? Encouraged individual, group and milieu therapy. ?2. ? We will attempt to gather collateral information from previous providers ?3. ? TO-15 minute checks on the unit. ?4. ? Recommend sober living treatment at the highest level of care to which the patient is willing to commit. 5. Patient refusing Invega 6mg daily. He will require forced medication once on 21-day hold. 21-day hold hearing held and 21-day hold granted. He was given Invega Sustenna 234 mg IM. Involuntary Hold Information 2 96 Hour Hold: 96 Hour Involuntary Admission: Yes 96 Hour Hold Ending Date: 09/04/24 96 Hour Hold Ending Time: 16:30 Other Hold: Hold End Date: 09/04/24 Attestations NPU 2 Medical Necessity Statement*: Inpatient hospitalization is medically necessary and the clinically appropriate intervention at this time. We will monitor/initiate medications and make changes as indicated. Likely length of stay 7 to 10 days. Coding Level of Care Code Acute Code for g Fwd Diagnoses Psychotic disorder F29 Depression F32.A
[2024-09-06 21:28] VITALS: BP 138/88; PULSE 95; RESP 20; TEMP 525.5; TEMP 978; O2SAT 96
[2024-09-07 06:00] VITALS: BP 128/70; PULSE 80; RESP 20; TEMP 36.8; O2SAT 98
[2024-09-07] MEDS: nicotine 2 mg Gum BUCCAL ×4 (09:19→20:49)
[2024-09-07 14:00] VITALS: BP 133/91; PULSE 98; RESP 16; TEMP 36.6; O2SAT 94
[2024-09-07 19:34] VITALS: BP 124/73; PULSE 78; RESP 18; TEMP 36.4; O2SAT 97
--- NOTE | 2024-09-07 21:36 | P.NPUPN_ITS ---
Subjective NPU 2 Subjective: Patient presented today reporting that he is here. He continues to demonstrate frustration about being here and being given the medication per staff reports and direct observation. He did not report any side effects to his medication but continued to be fairly resistant to communication with this typewriter assembly and parts inspector. Mental Status Exam 2 MSE Comments: This is an obese white male in hospital scrubs with limited grooming and eye contact with a significant jackson. No abnormal movements except for psychomotor agitation. Mostly cooperative with exam in moderate distress. Speech was increased rate and volume and somewhat pressured. Mood described as okay, affect irritable and guarded. Thought process linear but at times disorganized. Thought contact: patient denies suicidal or homicidal ideation, there were no delusions reported but some paranoia, guardedness as well as grandiosity note. Patient endorsed auditory but denied visual hallucinations. Attention and concentration appeared intact and memory appeared unreliable but none were formally tested. Patient is alert and oriented times person and place. Insight, judgment and impulse control are all impaired. Vitals/I&O/Wt Last Vital Signs Temp 97.6 F 09/07/24 19:34 Pulse 78 09/07/24 19:34 Resp 18 09/07/24 19:34 BP 124/73 09/07/24 19:34 Pulse Ox 97 09/07/24 19:34 O2 Del Method Room Air 09/07/24 14:00 09/07/24 09/07/24 09/07/24 06:59 14:59 22:59 Intake Total 480 / 480 Balance 480 / 480 Data NPU 08/25/24 16:28 08/25/24 16:28 A&P Assessment and plan (1) Psychotic disorder: (2) Depression: Plan This is a 39-year-old white male involuntarily hospitalized with decline in functioning at home with worsening psychosis currently on no medications at this time. He appears abstinent from illicit drugs and alcohol at this time. 1.? ? Encouraged individual, group and milieu therapy. ?2. ? We will attempt to gather collateral information from previous providers ?3. ? TO-15 minute checks on the unit. ?4. ? Recommend sober living treatment at the highest level of care to which the patient is willing to commit. 5. Patient refusing Invega 6mg daily. He will require forced medication once on 21-day hold. 21-day hold hearing held and 21-day hold granted. He was given Invega Sustenna 234 mg IM. Involuntary Hold Information 2 96 Hour Hold: 96 Hour Involuntary Admission: Yes 96 Hour Hold Ending Date: 09/04/24 96 Hour Hold Ending Time: 16:30 Other Hold: Hold End Date: 09/26/24 Attestations NPU 2 Medical Necessity Statement*: Inpatient hospitalization is medically necessary and the clinically appropriate intervention at this time. We will monitor/initiate medications and make changes as indicated. Likely length of stay 7 to 10 days. Coding Level of Care Code Acute Code for Chg Fwd Diagnoses Psychotic disorder F29 Depression F32.A
[2024-09-08] MEDS: nicotine 2 mg Gum BUCCAL ×4 (03:24→23:13)
[2024-09-08 06:00] VITALS: BP 120/69; PULSE 68; RESP 16; TEMP 36.4; O2SAT 99
--- NOTE | 2024-09-08 09:22 | P.NPUPN_ITS ---
Subjective NPU 2 Subjective: Patient presented today reporting that he is doing a little better. He did appear to have less irritability per staff reports and direct observation and even asked how this senior grant writer was doing which is significant in the face of his Frustration about being kept and forced to take medication. He denied any specific side effects of medication and expressed no irritability with the provider. Mental Status Exam 2 MSE Comments: This is an obese white male in hospital scrubs with limited grooming and eye contact with a significant jackson. No abnormal movements except for decreasing psychomotor agitation. Mostly cooperative with exam in mild to moderate distress. Speech was increased rate and volume and somewhat pressured. Mood described as okay, affect less irritable and guarded. Thought process linear but at times and more organized. Thought contact: patient denies suicidal or homicidal ideation, there were no delusions reported but some paranoia, guardedness as well as grandiosity note. Patient endorsed auditory but denied visual hallucinations. Attention and concentration appeared intact and memory appeared unreliable but none were formally tested. Patient is alert and oriented times person and place. Insight, judgment and impulse control are all impaired. Vitals/I&O/Wt Last Vital Signs Temp 97.5 F L 09/08/24 06:00 Pulse 68 09/08/24 06:00 Resp 16 09/08/24 06:00 BP 120/69 09/08/24 06:00 Pulse Ox 99 09/08/24 06:00 O2 Del Method Room Air 09/07/24 14:00 09/07/24 09/08/24 09/08/24 22:59 06:59 14:59 Intake Total 480 / 480 Balance 480 / 480 Data NPU 08/25/24 16:28 08/25/24 16:28 A&P Assessment and plan (1) Psychotic disorder: (2) Depression: Plan This is a 39-year-old white male involuntarily hospitalized with decline in functioning at home with worsening psychosis currently on no medications at this time. He appears abstinent from illicit drugs and alcohol at this time. 1.? ? Encouraged individual, group and milieu therapy. ?2. ? We will attempt to gather collateral information from previous providers ?3. ? TO-15 minute checks on the unit. ?4. ? Recommend sober living treatment at the highest level of care to which the patient is willing to commit. 5. Patient refusing Invega 6mg daily. He will require forced medication once on 21-day hold. 21-day hold hearing held and 21-day hold granted. He was given Invega Sustenna 234 mg IM. Involuntary Hold Information 2 96 Hour Hold: 96 Hour Involuntary Admission: Yes 96 Hour Hold Ending Date: 09/04/24 96 Hour Hold Ending Time: 16:30 Other Hold: Hold End Date: 09/26/24 Attestations NPU 2 Medical Necessity Statement*: Inpatient hospitalization is medically necessary and the clinically appropriate intervention at this time. We will monitor/initiate medications and make changes as indicated. Likely length of stay 7 to 10 days. Coding Level of Care Code Acute Code for Chg Fwd Diagnoses Psychotic disorder F29 Depression F32.A
[2024-09-08 14:00] VITALS: BP 151/86; PULSE 92; RESP 18; TEMP 36.6; O2SAT 98
[2024-09-08 20:15] VITALS: BP 148/105; PULSE 94; RESP 16; TEMP 36.6; O2SAT 96
[2024-09-09 06:30] VITALS: BP 123/77; PULSE 78; RESP 16; TEMP 36.6; O2SAT 97
[2024-09-09] MEDS: nicotine 2 mg Gum BUCCAL ×5 (08:51→19:31)
--- NOTE | 2024-09-09 09:23 | P.NPUPN_ITS ---
Subjective NPU 2 Subjective: Patient presented today reporting that he is doing okay. This is now the second day that he has been more engaging with this job specification writer and less irritable and not appearing to be resentful related to getting the injection. He continues to pace and pat his stomach per staff reports and direct observation. He denied any specific side effects to his medication. Mental Status Exam 2 MSE Comments: This is an obese white male in hospital scrubs with limited grooming and eye contact with a significant jackson. No abnormal movements except for decreasing psychomotor agitation. Patient with significant pacing as well and he continues to [place] at his stomach as he walks around.. Mostly cooperative with exam in mild distress. Speech was more normal rate and volume and less pressured. Mood described as okay, affect congruent and more engaging. Thought process linear but at times and more organized. Thought contact: patient denies suicidal or homicidal ideation, there were no delusions reported but some paranoia, guardedness as well as grandiosity note. Patient endorsed auditory but denied visual hallucinations and does continue to demonstrate being internally preoccupied. Attention and concentration appeared intact and memory appeared unreliable but none were formally tested. Patient is alert and oriented times person and place. Insight, judgment and impulse control are all impaired. Vitals/I&O/Wt Last Vital Signs Temp 97.8 F 09/09/24 06:30 Pulse 78 09/09/24 06:30 Resp 16 09/09/24 06:30 BP 123/77 09/09/24 06:30 Pulse Ox 97 09/09/24 06:30 O2 Del Method Room Air 09/07/24 14:00 Data NPU 08/25/24 16:28 08/25/24 16:28 A&P Assessment and plan (1) Psychotic disorder: (2) Depression: Plan This is a 39-year-old white male involuntarily hospitalized with decline in functioning at home with worsening psychosis currently on no medications at this time. He appears abstinent from illicit drugs and alcohol at this time. 1.? ? Encouraged individual, group and milieu therapy. ?2. ? We will attempt to gather collateral information from previous providers ?3. ? TO-15 minute checks on the unit. ?4. ? Recommend sober living treatment at the highest level of care to which the patient is willing to commit. 5. Patient refusing Invega 6mg daily. He will require forced medication once on 21-day hold. 21-day hold hearing held and 21-day hold granted. He was given Invega Sustenna 234 mg IM. Initial injection 09/06/2024 next injection by 09/13/2024. Involuntary Hold Information 2 96 Hour Hold: 96 Hour Involuntary Admission: Yes 96 Hour Hold Ending Date: 09/04/24 96 Hour Hold Ending Time: 16:30 Other Hold: Hold End Date: 09/26/24 Attestations NPU 2 Medical Necessity Statement*: Inpatient hospitalization is medically necessary and the clinically appropriate intervention at this time. We will monitor/initiate medications and make changes as indicated. Likely length of stay 7 to 10 days. Coding Level of Care Code Acute Code for [facility] Fwd Diagnoses Psychotic disorder F29 Depression F32.A
[2024-09-09 14:00] VITALS: BP 142/95; PULSE 98; RESP 19; TEMP 36.5; O2SAT 97
[2024-09-09 20:28] VITALS: BP 138/95; PULSE 92; RESP 18; TEMP 36.6; O2SAT 96
[2024-09-10 06:00] VITALS: BP 134/88; PULSE 79; RESP 16; O2SAT 96
[2024-09-10] MEDS: nicotine 2 mg Gum BUCCAL ×3 (09:34→17:50)
--- NOTE | 2024-09-10 12:07 | W.PM.NPUPNS ---
Subjective NPU Subjective: Patient presented today reporting he is not doing too bad. He has been less irritable and more pleasant per staff reports and direct observation. Staff report him continuing to pace and pat his stomach/belly which is also noted on direct observation. He was much more pleasant asking this mortgage or loan underwriter how I was doing and was more open to our conversation. He denied any side effects to the medication. Mental Status Exam MSE Comments: This is an obese white male in hospital scrubs with limited grooming and eye contact with a significant jackson. No abnormal movements except for decreasing psychomotor agitation. Patient with significant pacing as well and he continues to [place] at his stomach as he walks around.. Mostly cooperative with exam in mild distress. Speech was more normal rate and volume and less pressured. Mood described as okay, affect congruent and more engaging. Thought process linear but at times and more organized. Thought contact: patient denies suicidal or homicidal ideation, there were no delusions reported but some paranoia, guardedness as well as grandiosity note. Patient endorsed auditory but denied visual hallucinations and does continue to demonstrate being internally preoccupied. Attention and concentration appeared intact and memory appeared unreliable but none were formally tested. Patient is alert and oriented times person and place. Insight, judgment and impulse control are all impaired. Vitals/I&O/Wt Last Vital Signs Temp 97.8 F 09/09/24 20:28 Pulse 79 09/10/24 06:00 Resp 16 09/10/24 06:00 BP 134/88 09/10/24 06:00 Pulse Ox 96 09/10/24 06:00 O2 Del Method Room Air 09/09/24 14:00 Weight last 48 hrs Weight 126.666 kg Data NPU 08/25/24 16:28 08/25/24 16:28 A&P Assessment and plan (1) Psychotic disorder: (2) Depression: Plan This is a 39-year-old white male involuntarily hospitalized with decline in functioning at home with worsening psychosis currently on no medications at this time. He appears abstinent from illicit drugs and alcohol at this time. 1.? ? Encouraged individual, group and milieu therapy. ?2. ? We will attempt to gather collateral information from previous providers ?3. ? TO-15 minute checks on the unit. ?4. ? Recommend sober living treatment at the highest level of care to which the patient is willing to commit. 5. Patient refusing Invega 6mg daily. He will require forced medication once on 21-day hold. 21-day hold hearing held and 21-day hold granted. He was given Invega Sustenna 234 mg IM. Initial injection 09/06/2024 next injection by 09/13/2024. Involuntary Hold Information 96 Hour Hold: 96 Hour Involuntary Admission: Yes 96 Hour Hold Ending Date: 09/04/24 96 Hour Hold Ending Time: 16:30 Other Hold: Hold End Date: 09/26/24 Attestations NPU Medical Necessity Statement*: Inpatient hospitalization is medically necessary and the clinically appropriate intervention at this time. We will monitor/initiate medications and make changes as indicated. Likely length of stay 7 to 10 days. Coding Level of Care Code Acute Code for [facility] Fwd Diagnoses Psychotic disorder F29 Depression F32.A
[2024-09-10] MEDS: acetaminophen 325 mg Tablet 650 MG PO (12:38)
[2024-09-10 14:00] VITALS: BP 125/84; PULSE 96; RESP 16; TEMP 36.4; O2SAT 97
[2024-09-10 19:50] VITALS: BP 141/95; PULSE 94; RESP 18; TEMP 36.6; O2SAT 96
[2024-09-11] MEDS: nicotine 2 mg Gum BUCCAL ×7 (03:07→23:44)
[2024-09-11 06:15] VITALS: BP 143/76; PULSE 77; RESP 17; O2SAT 99
--- NOTE | 2024-09-11 08:08 | PC.NURSE ---
Morning assessment Patient continues to pace the hallway, rapidly patting his abdomen. Patient also is rapidly whispering to self. Patient is short and gruff during assessment, denies all though does appear to have internal stimuli.
[2024-09-11 14:00] VITALS: BP 160/111; PULSE 96; RESP 18; TEMP 36.5; O2SAT 96
--- NOTE | 2024-09-11 15:24 | PC.NURSE ---
Patient's BP elevated at 160/111. Dr. Ann notified. Last pressures: 143/76, 141/95, 125/84. Patient is not symptomatic.
--- NOTE | 2024-09-11 15:30 | PC.NURSE ---
RN NOTIFED AND GAVE THIS SHOW HORSE DRIVER ORDERS TO RECHECK IN 1 HR. NO DISTRESS OR SWEATING NOTED.
--- NOTE | 2024-09-11 16:13 | P.NPUPN_ITS ---
Subjective NPU 2 Subjective: Patient presented today reporting he is doing better. He continues to be less irritable and more pleasant per staff reports and direct observation. Staff report him continuing to pace the unit and pat his stomach/belly which is also noted on direct observation. He denied any side effects to the medication. Mental Status Exam 2 MSE Comments: This is an obese white male in hospital scrubs with limited grooming and eye contact with a significant jackson. No abnormal movements except for decreasing psychomotor agitation. Patient with significant pacing as well and he continues to pat at his stomach as he walks around.. Mostly cooperative with exam in mild distress. Speech was more normal rate and volume and less pressured. Mood described as okay, affect congruent and more engaging. Thought process linear but at times and more organized. Thought contact: patient denies suicidal or homicidal ideation, there were no delusions reported but some paranoia, guardedness as well as grandiosity note. Patient endorsed auditory but denied visual hallucinations and does continue to demonstrate being internally preoccupied. Attention and concentration appeared intact and memory appeared unreliable but none were formally tested. Patient is alert and oriented times person and place. Insight, judgment and impulse control are all impaired. Vitals/I&O/Wt Last Vital Signs Temp 97.7 F 09/11/24 14:00 Pulse 96 09/11/24 14:00 Resp 18 09/11/24 14:00 BP 160/111 09/11/24 14:00 Pulse Ox 96 09/11/24 14:00 O2 Del Method Room Air 09/10/24 14:00 Weight last 48 hrs Weight 126.666 kg Data NPU 08/25/24 16:28 08/25/24 16:28 A&P Assessment and plan (1) Psychotic disorder: (2) Depression: Plan This is a 39-year-old white male involuntarily hospitalized with decline in functioning at home with worsening psychosis currently on no medications at this time. He appears abstinent from illicit drugs and alcohol at this time. 1.? ? Encouraged individual, group and milieu therapy. ?2. ? We will attempt to gather collateral information from previous providers ?3. ? TO-15 minute checks on the unit. ?4. ? Recommend sober living treatment at the highest level of care to which the patient is willing to commit. 5. Patient refusing Invega 6mg daily. He will require forced medication once on 21-day hold. 21-day hold hearing held and 21-day hold granted. He was given Invega Sustenna 234 mg IM. Initial injection 09/06/2024 next injection by 09/13/2024. Involuntary Hold Information 2 96 Hour Hold: 96 Hour Involuntary Admission: Yes 96 Hour Hold Ending Date: 09/04/24 96 Hour Hold Ending Time: 16:30 Other Hold: Hold End Date: 09/26/24 Attestations NPU 2 Medical Necessity Statement*: Inpatient hospitalization is medically necessary and the clinically appropriate intervention at this time. We will monitor/initiate medications and make changes as indicated. Likely length of stay 7 to 10 days. Coding Level of Care Code Acute Code for [facility] Fwd Diagnoses Psychotic disorder F29 Depression F32.A
[2024-09-11 16:18] VITALS: BP 132/89
[2024-09-12] MEDS: nicotine 2 mg Gum BUCCAL ×4 (05:51→18:26)
[2024-09-12 06:00] VITALS: BP 122/71; PULSE 105; RESP 18; TEMP 36.5; O2SAT 97
[2024-09-12 14:00] VITALS: RESP 16
--- NOTE | 2024-09-12 14:36 | W.PM.NPUPNS ---
Subjective NPU Subjective: Patient presented today reporting that he is doing okay. He discussed that he understands how the medication can be effective but he is unsure whether it will fully work for him. We discussed the risks, benefits and alternatives of giving the second loading dose of Invega tomorrow and he understood and agreed to proceed as is documented in this note. Mental Status Exam MSE Comments: This is an obese white male in hospital scrubs with limited grooming and eye contact with a significant jackson. No abnormal movements except for decreasing psychomotor agitation. Patient with significant pacing as well and he continues to pat at his stomach as he walks around.. Mostly cooperative with exam in mild distress. Speech was more normal rate and volume and less pressured. Mood described as okay, affect congruent and more engaging. Thought process linear but at times and more organized. Thought contact: patient denies suicidal or homicidal ideation, there were no delusions reported but some paranoia, guardedness as well as grandiosity note. Patient endorsed auditory but denied visual hallucinations and does continue to demonstrate being internally preoccupied. Attention and concentration appeared intact and memory appeared unreliable but none were formally tested. Patient is alert and oriented times person and place. Insight, judgment and impulse control are all impaired. Vitals/I&O/Wt Last Vital Signs Temp 97.7 F 09/12/24 06:00 Pulse 105 H 09/12/24 06:00 Resp 18 09/12/24 06:00 BP 122/71 09/12/24 06:00 Pulse Ox 97 09/12/24 06:00 O2 Del Method Room Air 09/12/24 06:00 Data NPU 08/25/24 16:28 08/25/24 16:28 A&P Assessment and plan (1) Psychotic disorder: (2) Depression: Plan This is a 39-year-old white male involuntarily hospitalized with decline in functioning at home with worsening psychosis currently on no medications at this time. He appears abstinent from illicit drugs and alcohol at this time. 1.? ? Encouraged individual, group and milieu therapy. ?2. ? We will attempt to gather collateral information from previous providers ?3. ? TO-15 minute checks on the unit. ?4. ? Recommend sober living treatment at the highest level of care to which the patient is willing to commit. 5. Patient refusing Invega 6mg daily. He will require forced medication once on 21-day hold. 21-day hold hearing held and 21-day hold granted. He was given Invega Sustenna 234 mg IM. Initial injection 09/06/2024 next injection by tomorrow 09/13/2024. Involuntary Hold Information 96 Hour Hold: 96 Hour Involuntary Admission: Yes 96 Hour Hold Ending Date: 09/04/24 96 Hour Hold Ending Time: 16:30 Other Hold: Hold End Date: 09/26/24 Attestations NPU Medical Necessity Statement*: Inpatient hospitalization is medically necessary and the clinically appropriate intervention at this time. We will monitor/initiate medications and make changes as indicated. Likely length of stay 7 to 10 days. Coding Level of Care Code Acute Code for [facility] Fwd Diagnoses Psychotic disorder F29 Depression F32.A
[2024-09-12 21:01] VITALS: BP 148/88; PULSE 94; RESP 18; TEMP 36.6; O2SAT 95
[2024-09-13] MEDS: nicotine 2 mg Gum BUCCAL ×5 (02:55→19:13)
[2024-09-13 06:00] VITALS: BP 126/72; PULSE 84; RESP 20; TEMP 36.5; O2SAT 97
--- NOTE | 2024-09-13 09:05 | P.NPUPN_ITS ---
Subjective NPU 2 Subjective: Patient presented today reporting that he is doing okay. He was not excited about the fact that his second Invega injection was due today. But he took it without any problem. We discussed continuing to follow him moving forward now that he is gotten the second injection and looking towards discharge when he has an appropriate level of improvement. He denied any side effects to the medication. Mental Status Exam 2 MSE Comments: This is an obese white male in hospital scrubs with limited grooming and eye contact with a significant jackson. No abnormal movements except for decreasing psychomotor agitation. Patient with significant pacing as well and he continues to pat at his stomach as he walks around.. Mostly cooperative with exam in mild distress. Speech was more normal rate and volume and less pressured. Mood described as okay, affect congruent and more engaging. Thought process linear but at times and more organized. Thought contact: patient denies suicidal or homicidal ideation, there were no delusions reported but some paranoia, guardedness as well as grandiosity note. Patient endorsed auditory but denied visual hallucinations and does continue to demonstrate being internally preoccupied. Attention and concentration appeared intact and memory appeared unreliable but none were formally tested. Patient is alert and oriented times person and place. Insight, judgment and impulse control are all impaired. Vitals/I&O/Wt Last Vital Signs Temp 97.7 F 09/13/24 06:00 Pulse 84 09/13/24 06:00 Resp 20 H 09/13/24 06:00 BP 126/72 09/13/24 06:00 Pulse Ox 97 09/13/24 06:00 O2 Del Method Room Air 09/13/24 06:00 Data NPU 08/25/24 16:28 08/25/24 16:28 A&P Assessment and plan (1) Psychotic disorder: (2) Depression: Plan This is a 39-year-old white male involuntarily hospitalized with decline in functioning at home with worsening psychosis currently on no medications at this time. He appears abstinent from illicit drugs and alcohol at this time. 1.? ? Encouraged individual, group and milieu therapy. ?2. ? We will attempt to gather collateral information from previous providers ?3. ? TO-15 minute checks on the unit. ?4. ? Recommend sober living treatment at the highest level of care to which the patient is willing to commit. 5. Patient refusing Invega 6mg daily. He will require forced medication once on 21-day hold. 21-day hold hearing held and 21-day hold granted. He was given Invega Sustenna 234 mg IM. Initial injection 09/06/2024 next injection by today 09/13/2024. Involuntary Hold Information 2 96 Hour Hold: 96 Hour Involuntary Admission: Yes 96 Hour Hold Ending Date: 09/04/24 96 Hour Hold Ending Time: 16:30 Other Hold: Hold End Date: 09/26/24 Attestations NPU 2 Medical Necessity Statement*: Inpatient hospitalization is medically necessary and the clinically appropriate intervention at this time. We will monitor/initiate medications and make changes as indicated. Likely length of stay 7 to 10 days. Coding Level of Care Code Acute Code for [facility] Fwd Diagnoses Psychotic disorder F29 Depression F32.A
[2024-09-13 14:00] VITALS: BP 127/85; PULSE 96; RESP 18; TEMP 36.6; O2SAT 94
[2024-09-13] MEDS: paliperidone palmitate 156 mg Syringe IM (14:17)
--- NOTE | 2024-09-13 14:19 | PC.NURSE ---
INVRYAN SUSTENNA 156 MG GIVEN IM IN RIGHT DELTOID ORDERED BY PHYSICIAN. LOT PCBOUOO EXP
[2024-09-13 20:27] VITALS: BP 130/81; PULSE 84; RESP 20; TEMP 36.5; O2SAT 96
[2024-09-14] MEDS: nicotine 2 mg Gum BUCCAL ×3 (04:28→17:31)
[2024-09-14 06:00] VITALS: BP 156/97; PULSE 86; RESP 20; TEMP 36.4; O2SAT 98
[2024-09-14 14:00] VITALS: BP 149/75; PULSE 103; RESP 18; TEMP 36.8; O2SAT 95
--- NOTE | 2024-09-14 14:34 | P.NPUPN_ITS ---
Subjective NPU 2 Subjective: Patient presented today reporting that he is doing okay. He denies any issues related to getting the second injection yesterday. We discussed giving him some more time given that he was not taking the oral Invega at times but discussed the possibility of needing an additional medication to be able to manage his psychosis. He reports he is not real happy taking the 1 medication and is unclear whether he would want to take a second 1. Otherwise he continued to pace the floor as per staff report and direct observation with continued talking to himself as well. He denied any specific side effects to the medication. Mental Status Exam 2 MSE Comments: This is an obese white male in hospital scrubs with limited grooming and eye contact with a significant jackson. No abnormal movements except for decreasing psychomotor agitation. Patient with significant pacing as well and he continues to pat at his stomach as he walks around.. Mostly cooperative with exam in mild distress. Speech was more normal rate and volume and less pressured. Mood described as okay, affect congruent and more engaging. Thought process linear but at times and more organized. Thought contact: patient denies suicidal or homicidal ideation, there were no delusions reported but some paranoia, guardedness as well as grandiosity note. Patient endorsed auditory but denied visual hallucinations and does continue to demonstrate being internally preoccupied. Attention and concentration appeared intact and memory appeared unreliable but none were formally tested. Patient is alert and oriented times person and place. Insight, judgment and impulse control are all impaired. Vitals/I&O/Wt Last Vital Signs Temp 97.6 F 09/14/24 06:00 Pulse 86 09/14/24 06:00 Resp 20 H 09/14/24 06:00 BP 156/97 09/14/24 06:00 Pulse Ox 98 09/14/24 06:00 O2 Del Method Room Air 09/14/24 06:00 09/13/24 09/14/24 09/14/24 22:59 06:59 14:59 Intake Total 480 / 480 Balance 480 / 480 Data NPU 08/25/24 16:28 08/25/24 16:28 A&P Assessment and plan (1) Psychotic disorder: (2) Depression: Plan This is a 39-year-old white male involuntarily hospitalized with decline in functioning at home with worsening psychosis currently on no medications at this time. He appears abstinent from illicit drugs and alcohol at this time. 1.? ? Encouraged individual, group and milieu therapy. ?2. ? We will attempt to gather collateral information from previous providers ?3. ? TO-15 minute checks on the unit. ?4. ? Recommend sober living treatment at the highest level of care to which the patient is willing to commit. 5. Patient refusing Invega 6mg daily. He will require forced medication once on 21-day hold. 21-day hold hearing held and 21-day hold granted. He was given Invega Sustenna 234 mg IM. Initial injection 09/06/2024 next injection by 09/13/2024. Involuntary Hold Information 2 96 Hour Hold: 96 Hour Involuntary Admission: Yes 96 Hour Hold Ending Date: 09/04/24 96 Hour Hold Ending Time: 16:30 Other Hold: Hold End Date: 09/26/24 Attestations NPU 2 Medical Necessity Statement*: Inpatient hospitalization is medically necessary and the clinically appropriate intervention at this time. We will monitor/initiate medications and make changes as indicated. Likely length of stay 7 to 10 days. Coding Level of Care Code Acute Code for [facility] Fwd Diagnoses Psychotic disorder F29 Depression F32.A
[2024-09-14 20:58] VITALS: BP 127/53; PULSE 92; RESP 20; TEMP 36.9; O2SAT 95
[2024-09-15] MEDS: nicotine 2 mg Gum BUCCAL ×6 (02:18→21:57)
[2024-09-15 06:00] VITALS: BP 137/82; PULSE 99; RESP 20; TEMP 36.3; O2SAT 94
--- NOTE | 2024-09-15 09:59 | W.PM.NPUPNS ---
Subjective NPU Subjective: Patient presented today unchanged per staff reports and direct observation. He continued to be pacing the unit with no aggression or ill will but continuing to pad his abdomen and talk to himself per reports and direct observation. He denied any issues with his medication and reports being interested in discharging as soon as possible. He did not report any side effects to his medications. Mental Status Exam MSE Comments: This is an obese white male in hospital scrubs with limited grooming and eye contact with a significant jackson. No abnormal movements except for decreasing psychomotor agitation. Patient with significant pacing as well and he continues to pat at his stomach as he walks around.. Mostly cooperative with exam in mild distress. Speech was more normal rate and volume and less pressured. Mood described as okay, affect congruent and more engaging. Thought process linear but at times and more organized. Thought contact: patient denies suicidal or homicidal ideation, there were no delusions reported but some paranoia, guardedness as well as grandiosity note. Patient endorsed auditory but denied visual hallucinations and does continue to demonstrate being internally preoccupied. Attention and concentration appeared intact and memory appeared unreliable but none were formally tested. Patient is alert and oriented times person and place. Insight, judgment and impulse control are all impaired. Vitals/I&O/Wt Last Vital Signs Temp 97.4 F L 09/15/24 06:00 Pulse 99 09/15/24 06:00 Resp 20 H 09/15/24 06:00 BP 137/82 09/15/24 06:00 Pulse Ox 94 09/15/24 06:00 O2 Del Method Room Air 09/15/24 06:00 Data NPU 08/25/24 16:28 08/25/24 16:28 A&P Assessment and plan (1) Psychotic disorder: (2) Depression: Plan This is a 39-year-old white male involuntarily hospitalized with decline in functioning at home with worsening psychosis currently on no medications at this time. He appears abstinent from illicit drugs and alcohol at this time. 1.? ? Encouraged individual, group and milieu therapy. ?2. ? We will attempt to gather collateral information from previous providers ?3. ? TO-15 minute checks on the unit. ?4. ? Recommend sober living treatment at the highest level of care to which the patient is willing to commit. 5. Patient refusing Invega 6mg daily. He will require forced medication once on -day hold. 21-day hold hearing held and 21-day hold granted. He was given Invega Sustenna 234 mg IM. Initial injection 09/06/2024 next injection by 09/13/2024. Involuntary Hold Information 96 Hour Hold: 96 Hour Involuntary Admission: Yes 96 Hour Hold Ending Date: 09/04/24 96 Hour Hold Ending Time: 16:30 Other Hold: Hold End Date: 09/26/24 Attestations NPU Medical Necessity Statement*: Inpatient hospitalization is medically necessary and the clinically appropriate intervention at this time. We will monitor/initiate medications and make changes as indicated. Likely length of stay 7 to 10 days. Coding Level of Care Code Acute Code for [facility] Fwd Diagnoses Psychotic disorder F29 Depression F32.A
[2024-09-15 14:00] VITALS: BP 126/81; PULSE 89; RESP 18; TEMP 36.6; O2SAT 95
[2024-09-15 19:51] VITALS: BP 137/92; PULSE 85; RESP 18; TEMP 36.8; O2SAT 99
[2024-09-16] MEDS: nicotine 2 mg Gum BUCCAL ×5 (05:58→19:45)
[2024-09-16 06:00] VITALS: BP 131/76; PULSE 108; RESP 18; TEMP 36.3; O2SAT 94
--- NOTE | 2024-09-16 10:10 | W.PM.NPUPNS ---
Subjective NPU Subjective: Today reporting that he is doing fine but continued to have significant delusional talk per staff reports and direct observation. He was speaking about having knowledge that something had been placed and he is not being able to get it out and he knows that people have done this to him as part of some big conspiracy. He denied any side effects to the medication and reports that he is aware Dr. Cuello will be here tomorrow to continue his treatment. Mental Status Exam MSE Comments: This is an obese white male in hospital scrubs with limited grooming and eye contact with a significant jackson. No abnormal movements except for decreasing psychomotor agitation. Patient with significant pacing as well and he continues to pat at his stomach as he walks around. Mostly cooperative with exam in mild distress. Speech was more normal rate and volume and less pressured. Mood described as okay, affect congruent and more engaging. Thought process linear but at times and more organized. Thought contact: patient denies suicidal or homicidal ideation, there were no delusions reported but some paranoia, guardedness as well as grandiosity note. Continued thoughts about things implanted in his body exist. Patient endorsed auditory but denied visual hallucinations and does continue to demonstrate being internally preoccupied. Attention and concentration appeared intact and memory appeared unreliable but none were formally tested. Patient is alert and oriented times person and place. Insight, judgment and impulse control are all impaired. Vitals/I&O/Wt Last Vital Signs Temp 97.4 F L 09/16/24 06:00 Pulse 108 H 09/16/24 06:00 Resp 18 09/16/24 06:00 BP 131/76 09/16/24 06:00 Pulse Ox 94 09/16/24 06:00 O2 Del Method Room Air 09/15/24 06:00 Data NPU 08/25/24 16:28 08/25/24 16:28 A&P Assessment and plan (1) Psychotic disorder: (2) Depression: Plan This is a 39-year-old white male involuntarily hospitalized with decline in functioning at home with worsening psychosis currently on no medications at this time. He appears abstinent from illicit drugs and alcohol at this time. 1.? ? Encouraged individual, group and milieu therapy. ?2. ? We will attempt to gather collateral information from previous providers ?3. ? TO-15 minute checks on the unit. ?4. ? Recommend sober living treatment at the highest level of care to which the patient is willing to commit. 5. Patient refusing Invega 6mg daily. He will require forced medication once on 21-day hold. 21-day hold hearing held and 21-day hold granted. He was given Invega Sustenna 234 mg IM. Initial injection 09/06/2024 next injection by 09/13/2024. Involuntary Hold Information 96 Hour Hold: 96 Hour Involuntary Admission: Yes 96 Hour Hold Ending Date: 09/04/24 96 Hour Hold Ending Time: 16:30 Other Hold: Hold End Date: 09/26/24 Attestations NPU Medical Necessity Statement*: Inpatient hospitalization is medically necessary and the clinically appropriate intervention at this time. We will monitor/initiate medications and make changes as indicated. Likely length of stay 7 to 10 days. Coding Level of Care Code Acute Code for [facility] Fwd Diagnoses Psychotic disorder F29 Depression F32.A
[2024-09-16 14:00] VITALS: BP 112/60; PULSE 73; RESP 18; TEMP 36.9; O2SAT 96
[2024-09-16 19:45] VITALS: BP 152/90; PULSE 100; RESP 18; TEMP 36.6; O2SAT 96
[2024-09-17] MEDS: nicotine 2 mg Gum BUCCAL ×4 (03:58→19:53)
[2024-09-17 06:15] VITALS: BP 127/75; PULSE 77; RESP 16; TEMP 36.3; O2SAT 98
[2024-09-17 14:00] VITALS: BP 128/69; PULSE 85; RESP 13; TEMP 36.6; O2SAT 97
--- NOTE | 2024-09-17 18:43 | W.PM.NPUPNS ---
Subjective NPU Subjective: 39-year-old male with a history of psychosis including prominent delusions admitted with disorganized behavior and thinking. Patient continued to express concern that something had been implanted inside of him. He continued to have extended conversations while pacing the hallway. He had reported that others here had direct knowledge of some plot and stated that he knew that it was part of some larger conspiracy. He had reported no side effects from his current medication regimen. Mental Status Exam MSE Comments: This is an obese white male in hospital scrubs with limited grooming and eye contact with a significant jackson. No abnormal movements except for decreasing psychomotor agitation. Patient with significant pacing as well and he continues to pat at his stomach while walking around hallway. He was minimally cooperative with exam in mild distress. Speech was more normal in rate and volume and less pressured. Mood described as okay, Affect was odd and subdued still. Thought process was linear but very superficial. Thought contact: patient denies suicidal or homicidal ideation, There were prominent paranoid delusions appreciated. He remained guarded throughout the interview. He had continued thoughts about things implanted in his body exist. Patient endorsed auditory but denied visual hallucinations and does continue to demonstrate being internally preoccupied. Attention and concentration appeared intact and memory appeared unreliable but none were formally tested. Patient is alert and oriented times person and place. Insight, judgment and impulse control are all impaired. Vitals/I&O/Wt Last Vital Signs Temp 98 F 09/17/24 14:00 Pulse 85 09/17/24 14:00 Resp 13 09/17/24 14:00 BP 128/69 09/17/24 14:00 Pulse Ox 97 09/17/24 14:00 O2 Del Method Room Air 09/17/24 14:00 09/17/24 09/17/24 09/17/24 06:59 14:59 22:59 Intake Total 960 / 960 480 / 1440 Balance 960 / 960 480 / 1440 Weight last 48 hrs Weight 126.212 kg Data NPU 08/25/24 16:28 08/25/24 16:28 A&P Assessment and plan (1) Psychotic disorder: (2) Depression: Plan This is a 39-year-old white male involuntarily hospitalized with decline in functioning at home with worsening psychosis currently on no medications at this time. He appears abstinent from illicit drugs and alcohol at this time. 1.? ? Encouraged individual, group and milieu therapy. ?2. ? We will attempt to gather collateral information from previous providers ?3. ? TO-15 minute checks on the unit. ?4. ? Recommend sober living treatment at the highest level of care to which the patient is willing to commit. 5. Patient refusing Invega 6mg daily. He will require forced medication once on 21-day hold. 21-day hold hearing held and 21-day hold granted. He was given Invega Sustenna 234 mg IM. Initial injection 09/06/2024 next injection by 09/13/2024. Involuntary Hold Information 96 Hour Hold: 96 Hour Involuntary Admission: Yes 96 Hour Hold Ending Date: 09/04/24 96 Hour Hold Ending Time: 16:30 Other Hold: Hold End Date: 09/26/24 Attestations NPU Medical Necessity Statement*: Inpatient hospitalization is medically necessary and the clinically appropriate intervention at this time. We will monitor/initiate medications and make changes as indicated. Likely length of stay 7 to 10 days. Coding Level of Care Code Acute Code for [facility] Fwd Diagnoses Psychotic disorder F29 Depression F32.A
[2024-09-17 20:00] VITALS: BP 127/68; PULSE 80; RESP 16; TEMP 36.6; O2SAT 97
[2024-09-18] MEDS: nicotine 2 mg Gum BUCCAL ×5 (02:53→21:30)
[2024-09-18 06:00] VITALS: BP 117/82; PULSE 97; RESP 18; TEMP 36.8; O2SAT 96
--- NOTE | 2024-09-18 09:03 | PC.NURSE ---
Morning assessment During morning assessment, patient calm yet guarded. Patient denies feelings of anxiety, depression, suicidal/homicidal ideation, and hallucinations. Patient continues to pace the hallway, patting his belly and whispering to himself. Patient said he is just waiting to get out of here. This nurse asked what if he would go get a [employer] cheeseburger. Patient made a half-laugh and said, probably something better than that. Patient said that he would go visit with his sister for a bit after he left.
[2024-09-18 14:00] VITALS: BP 151/89; PULSE 92; RESP 18; TEMP 36.6; O2SAT 97
--- NOTE | 2024-09-18 17:53 | W.PM.NPUPNS ---
Subjective NPU Subjective: 39-year-old male with a history of psychosis including prominent delusions admitted with disorganized behavior and thinking. The patient was refusing oral medications. He continued to report that staff was somehow involved in a nefarious plot to harm him and he continued to report that he would be returning home to his and children despite confirmation that the patient was and was no longer living with her. He had minimized the use of any illicit substances. He had no recent acts of aggression. He had reported that he was sleeping well. He continued to pace around the unit often engaging in conversation with himself while rubbing his stomach. Mental Status Exam MSE Comments: This is an obese white male in hospital scrubs with limited grooming and eye contact with a prominent jackson. No abnormal movements except for decreasing psychomotor agitation. Patient with significant pacing as well and he continues to pat at his stomach while walking around hallway. He was minimally cooperative with exam in mild distress. Speech was more normal in rate and volume and less pressured. Mood described as okay, Affect was odd and subdued still. Thought process was linear but very superficial. Thought contact: patient denies suicidal or homicidal ideation, There were prominent paranoid delusions appreciated. He remained guarded throughout the interview. He had continued thoughts about things implanted in his body exist. Patient endorsed auditory but denied visual hallucinations and did appear to be responding to internal stimuli. Attention and concentration appeared intact and memory appeared unreliable but none were formally tested. Patient is alert and oriented times person and place but not time. Insight, judgment and impulse control are all impaired. Vitals/I&O/Wt Last Vital Signs Temp 98 F 09/18/24 14:00 Pulse 92 09/18/24 14:00 Resp 18 09/18/24 14:00 BP 151/89 09/18/24 14:00 Pulse Ox 97 09/18/24 14:00 O2 Del Method Room Air 09/18/24 06:00 Weight last 48 hrs Weight 126.212 kg Data NPU 08/25/24 16:28 08/25/24 16:28 A&P Assessment and plan (1) Psychotic disorder: (2) Depression: Plan This is a 39-year-old white male involuntarily hospitalized with decline in functioning at home with worsening psychosis currently on no medications at this time. He appears abstinent from illicit drugs and alcohol at this time. 1.? ? Encouraged individual, group and milieu therapy. ?2. ? We will attempt to gather collateral information from previous providers ?3. ? TO-15 minute checks on the unit. ?4. ? Recommend sober living treatment at the highest level of care to which the patient is willing to commit. 5. Patient refusing Invega 6mg daily. He will require forced medication once on 21-day hold. 21-day hold hearing held and 21-day hold granted. He was given Invega Sustenna 234 mg IM. Initial injection 09/06/2024 next injection by 09/13/2024. Involuntary Hold Information 96 Hour Hold: 96 Hour Involuntary Admission: Yes 96 Hour Hold Ending Date: 09/04/24 96 Hour Hold Ending Time: 16:30 Other Hold: Hold End Date: 09/26/24 Attestations NPU Medical Necessity Statement*: Inpatient hospitalization is medically necessary and the clinically appropriate intervention at this time. We will monitor/initiate medications and make changes as indicated. Likely length of stay 7 to 10 days. Coding Level of Care Code Acute Code for [facility] Fwd Diagnoses Psychotic disorder F29 Depression F32.A
[2024-09-18 20:11] VITALS: BP 107/59; PULSE 77; RESP 16; TEMP 36.5; O2SAT 96
[2024-09-19] MEDS: nicotine 2 mg Gum BUCCAL ×5 (02:49→20:36)
[2024-09-19 06:00] VITALS: BP 130/80; PULSE 85; RESP 16; TEMP 36.5; O2SAT 96
[2024-09-19 14:00] VITALS: BP 137/92; PULSE 93; RESP 18; TEMP 36.6; O2SAT 97
--- NOTE | 2024-09-19 16:41 | P.NPUPN_ITS ---
Subjective NPU 2 Subjective: 39-year-old male with a history of psych osis including prominent delusions admitted with disorganized behavior and thinking. Patient continued to be appearing to motor through the halls while engaged in conversation with himself and touching his stomach in a repetitive fashion. The patient had reported that everything was fine today. He had intimated about government conspiracies under his breath but when asked about the details appeared unable or unwilling to elaborate. Mental Status Exam 2 MSE Comments: This is an obese white male in hospital scrubs with limited grooming and eye contact with a prominent jackson. No abnormal movements except for decreasing psychomotor agitation. Patient with significant pacing as well and he continues to pat at his stomach while walking around hallway. He was minimally cooperative with exam in mild distress. Speech was more normal in rate and volume and less pressured. Mood described as allright., Affect was odd and subdued still. Thought process was linear but very superficial. Thought contact: patient denies suicidal or homicidal ideation, There were prominent paranoid delusions appreciated. He remained guarded throughout the interview. He had continued thoughts about things implanted in his body exist. Patient endorsed auditory but denied visual hallucinations and did appear to be responding to internal stimuli. Attention and concentration appeared intact and memory appeared unreliable but none were formally tested. Patient is alert and oriented times person and place but not time. Insight, judgment and impulse control are all impaired. Vitals/I&O/Wt Last Vital Signs Temp 97.8 F 09/19/24 14:00 Pulse 93 09/19/24 14:00 Resp 18 09/19/24 14:00 BP 137/92 09/19/24 14:00 Pulse Ox 97 09/19/24 14:00 O2 Del Method Room Air 09/19/24 06:00 Data NPU 08/25/24 16:28 08/25/24 16:28 A&P Assessment and plan (1) Psychotic disorder: (2) Depression: Plan This is a 39-year-old white male involuntarily hospitalized with decline in functioning at home with worsening psychosis currently on no medications at this time. He appears abstinent from illicit drugs and alcohol at this time. 1.? ? Encouraged individual, group and milieu therapy. ?2. ? We will attempt to gather collateral information from previous providers ?3. ? TO-15 minute checks on the unit. ?4. ? Recommend sober living treatment at the highest level of care to which the patient is willing to commit. 5. Patient refusing Invega 6mg daily. He will require forced medication once on 21-day hold. 21-day hold hearing held and 21-day hold granted. He was given Invega Sustenna 234 mg IM. Initial injection 09/06/2024 next injection given on 09/13/2024. Involuntary Hold Information 2 96 Hour Hold: 96 Hour Involuntary Admission: Yes 96 Hour Hold Ending Date: 09/04/24 96 Hour Hold Ending Time: 16:30 Other Hold: Hold End Date: 09/26/24 Attestations NPU 2 Medical Necessity Statement*: Inpatient hospitalization is medically necessary and the clinically appropriate intervention at this time. We will monitor/initiate medications and make changes as indicated. Likely length of stay may be greater than 14 days if guardianship and placement is pursued. Coding Level of Care Code Acute Code for [facility] Fwd Diagnoses Psychotic disorder F29 Depression F32.A
[2024-09-19 20:11] VITALS: BP 116/76; PULSE 81; RESP 18; TEMP 36.6; O2SAT 95
[2024-09-20] MEDS: nicotine 2 mg Gum BUCCAL ×5 (05:07→23:12)
[2024-09-20 06:30] VITALS: BP 98/54; PULSE 100; RESP 19; TEMP 36.3; O2SAT 95
[2024-09-20 14:00] VITALS: BP 156/84; PULSE 91; RESP 18; TEMP 36.7; O2SAT 96
--- NOTE | 2024-09-20 19:37 | P.NPUPN_ITS ---
Subjective NPU 2 Subjective: 39-year-old male with a history of psych osis including prominent delusions admitted with disorganized behavior and thinking. 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 He had reported that he had a past that prevented him from remaining here in the hospital for an extended period of time. He had reported a I continued to be involved in following the cameras here. 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 Mental Status Exam 2 MSE Comments: This is an obese white male in hospital scrubs with limited grooming and eye contact with a prominent jackson. No abnormal movements except for decreasing psychomotor agitation. Patient with significant pacing as well and he continues to pat at his stomach while walking around hallway. He was minimally cooperative with exam in mild distress. Speech was more normal in rate and volume and less pressured. Mood described as allright., Affect was odd and subdued still. Thought process was linear but very superficial. Thought contact: patient denies suicidal or homicidal ideation, There were prominent paranoid delusions appreciated. He remained guarded throughout the interview. He had continued thoughts about things implanted in his body exist. Patient endorsed auditory but denied visual hallucinations and did appear to be responding to internal stimuli. Attention and concentration appeared intact and memory appeared unreliable but none were formally tested. Patient is alert and oriented times person and place but not time. Insight, judgment and impulse control are all impaired. Vitals/I&O/Wt Last Vital Signs Temp 98.1 F 09/20/24 14:00 Pulse 91 09/20/24 14:00 Resp 18 09/20/24 14:00 BP 156/84 09/20/24 14:00 Pulse Ox 96 09/20/24 14:00 O2 Del Method Room Air 09/19/24 06:00 Data NPU 08/25/24 16:28 08/25/24 16:28 A&P Assessment and plan (1) Psychotic disorder: (2) Depression: Plan This is a 39-year-old white male involuntarily hospitalized with decline in functioning at home with worsening psychosis currently on no medications at this time. He appears abstinent from illicit drugs and alcohol at this time. 1.? ? Encouraged individual, group and milieu therapy. ?2. ? We will attempt to gather collateral information from previous providers ?3. ? TO-15 minute checks on the unit. ?4. ? Recommend sober living treatment at the highest level of care to which the patient is willing to commit. 5. Patient refusing Invega 6mg daily. Patient received both IM 234mg, 156mg on 09/06/24 and 09/13/24 respectively. Still remains psychotic, may need haldol IM/oral. Involuntary Hold Information 2 96 Hour Hold: 96 Hour Involuntary Admission: Yes 96 Hour Hold Ending Date: 09/04/24 96 Hour Hold Ending Time: 16:30 Other Hold: Hold End Date: 09/26/24 Attestations NPU 2 Medical Necessity Statement*: Inpatient hospitalization is medically necessary and the clinically appropriate intervention at this time. We will monitor/initiate medications and make changes as indicated. Likely length of stay may be greater than 14 days if guardianship and placement is pursued. Coding Level of Care Code Acute Code for [facility] Fwd Diagnoses Psychotic disorder F29 Depression F32.A
[2024-09-20 20:09] VITALS: BP 117/81; PULSE 96; RESP 18; O2SAT 100
[2024-09-20] MEDS: acetaminophen 325 mg Tablet 650 MG PO (21:14)
[2024-09-21] MEDS: nicotine 2 mg Gum BUCCAL ×5 (06:00→21:14)
[2024-09-21 06:30] VITALS: BP 125/75; PULSE 86; RESP 16; O2SAT 96
--- NOTE | 2024-09-21 12:37 | PC.NURSE ---
NEW ORDERS RECEIVED BY DR. DOBBINS TO GIVE INVEGA 3 MG PO DAILY WITH FIRST DOSE TODAY, IF PT REFUSES INVEGA PO GIVE HALDOL 5 MG IM. ORDERS PLACED. WILL EDUCATE PT.
[2024-09-21] MEDS: paliperidone ER 3 mg Tablet PO (13:06)
--- NOTE | 2024-09-21 13:14 | PC.NURSE ---
PT DID TAKE INVEGA 3 MG ORDERED WITHOUT ISSUE.
[2024-09-21 14:00] VITALS: BP 169/56; PULSE 107; RESP 17; O2SAT 97
--- NOTE | 2024-09-21 15:56 | P.NPUPN_ITS ---
Subjective NPU 2 Subjective: 39-year-old male with a history of psych osis including prominent delusions admitted with disorganized behavior and thinking. Patient had continued to appear somewhat guarded on the unit. He continued to engage in conversations to himself while patting his fingers and kill your way while walking along the halls. Patient had revealed that this communication pattern was necessary to communicate with [place] soldiers. He had continued to state that he had a francisco past send that he had been here indefinitely and this was an action that was illegal and could be brought to the court. His visit with his had been better according to staff. No clear acts of aggression. He had continued to state to the nursing staff that he was planning on returning to live with his and children despite information suggesting that they were not currently involved more together at this time. Mental Status Exam 2 MSE Comments: This is an obese white male in hospital scrubs with limited grooming and eye contact with a prominent jackson. No abnormal movements except for decreasing psychomotor agitation. Patient with significant pacing as well and he continues to pat at his stomach while walking around hallway. He was superficially cooperative with exam in no acute distress today. Speech was more normal in rate and volume and less pressured. Mood described as good., Affect was odd and mood incongruent. Thought process was linear but very superficial. Thought contact: patient denies suicidal or homicidal ideation, There were prominent paranoid delusions appreciated. He remained guarded throughout the interview. He had continued thoughts about things implanted in his body exist. Patient endorsed auditory but denied visual hallucinations and did appear to be responding to internal stimuli. Attention and concentration appeared intact and memory appeared unreliable but none were formally tested. Patient is alert and oriented times person and place but not time. Insight, judgment and impulse control are all impaired. Vitals/I&O/Wt Last Vital Signs Temp 98.1 F 09/20/24 14:00 Pulse 107 H 09/21/24 14:00 Resp 17 09/21/24 14:00 BP 169/56 09/21/24 14:00 Pulse Ox 97 09/21/24 14:00 O2 Del Method Room Air 09/19/24 06:00 09/21/24 09/21/24 09/21/24 06:59 14:59 22:59 Intake Total 480 / 480 Balance 480 / 480 Data NPU 08/25/24 16:28 08/25/24 16:28 A&P Assessment and plan (1) Schizophrenia, acute: (2) Psychotic disorder: (3) Depression: Plan This is a 39-year-old white male involuntarily hospitalized with decline in functioning at home with worsening psychosis currently on no medications at this time. He appears abstinent from illicit drugs and alcohol at this time. 1.? ? Encouraged individual, group and milieu therapy. ?2. ? We will attempt to gather collateral information from previous providers ?3. ? TO-15 minute checks on the unit. ?4. ? Recommend sober living treatment at the highest level of care to which the patient is willing to commit. 5. Patient received both IM 234mg, 156mg on 09/06/24 and 09/13/24 respectively. Still remains psychotic, may need haldol IM/oral Seroquel adjunctively Involuntary Hold Information 2 96 Hour Hold: 96 Hour Involuntary Admission: Yes 96 Hour Hold Ending Date: 09/04/24 96 Hour Hold Ending Time: 16:30 Other Hold: Hold End Date: 09/26/24 Attestations NPU 2 Medical Necessity Statement*: Inpatient hospitalization is medically necessary and the clinically appropriate intervention at this time. We will monitor/initiate medications and make changes as indicated. Likely length of stay may be greater than 14 days if guardianship and placement is pursued. Coding Level of Care Code Acute Code for [facility] Fwd Diagnoses Schizophrenia, acute F23 Psychotic disorder F29 Depression F32.A
[2024-09-21 19:53] VITALS: BP 101/53; PULSE 107; RESP 16; TEMP 37.8; O2SAT 100
[2024-09-21] MEDS: acetaminophen 325 mg Tablet 650 MG PO (21:13)
[2024-09-22] MEDS: nicotine 2 mg Gum BUCCAL ×4 (03:20→20:23)
[2024-09-22 06:00] VITALS: BP 110/64; PULSE 90; RESP 16; TEMP 37.1; O2SAT 96
[2024-09-22 14:00] VITALS: BP 124/86; PULSE 91; RESP 18; TEMP 36.7; O2SAT 97
--- NOTE | 2024-09-22 18:09 | PC.NURSE ---
Seroquel Patient refused seroquel at 1800. Patient became agitated when this nurse asked him if he is willing to take it.
--- NOTE | 2024-09-22 18:32 | P.NPUPN_ITS ---
Subjective NPU 2 Subjective: 39-year-old male with a history of psych osis including prominent delusions admitted with disorganized behavior and thinking. The patient had refused Seroquel XR yesterday and today. 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 He had continued to state that he had plans to leave here to go back to live with his and children. He had not been aggressive on the unit. He had been able to sleep. He continued to appear at times disengaged and had limited communication or effort seen in groups. Mental Status Exam 2 MSE Comments: This is an obese white male in hospital scrubs with limited grooming and eye contact with a prominent jackson. No abnormal movements except for mild psychomotor agitation. Patient with significant pacing as well and he continues to pat his stomach with his fingers while walking around hallway. He was superficially cooperative with exam in no acute distress today. Speech was more normal in rate and volume and less pressured. Mood described as good. Affect was odd and mood incongruent. Thought process was linear but very superficial. Thought contact: patient denies suicidal or homicidal ideation, There were prominent paranoid delusions appreciated. He remained guarded throughout the interview. He had continued thoughts about things implanted in his body exist. Patient endorsed auditory but denied visual hallucinations and did appear to be responding to internal stimuli. Attention and concentration appeared intact and memory appeared unreliable but none were formally tested. Patient is alert and oriented times person and place but not time. Insight, judgment and impulse control are all impaired. Vitals/I&O/Wt Last Vital Signs Temp 98.1 F 09/22/24 14:00 Pulse 91 09/22/24 14:00 Resp 18 09/22/24 14:00 BP 124/86 09/22/24 14:00 Pulse Ox 97 09/22/24 14:00 O2 Del Method Room Air 09/22/24 14:00 09/22/24 09/22/24 09/22/24 06:59 14:59 22:59 Intake Total 960 / 960 Balance 960 / 960 Data NPU 08/25/24 16:28 08/25/24 16:28 A&P Assessment and plan (1) Schizophrenia, acute: (2) Psychotic disorder: (3) Depression: Plan This is a 39-year-old white male involuntarily hospitalized with decline in functioning at home with worsening psychosis currently on no medications at this time. He appears abstinent from illicit drugs and alcohol at this time. 1.? ? Encouraged individual, group and milieu therapy. ?2. ? We will attempt to gather collateral information from previous providers ?3. ? TO-15 minute checks on the unit. ?4. ? Recommend sober living treatment at the highest level of care to which the patient is willing to commit. 5. Patient received both IM 234mg, 156mg on 09/06/24 and 09/13/24 respectively. Still remains psychotic, started Latuda 40mg at 7Pm after dinner with Haldol 5mg IM if patient refuses. Involuntary Hold Information 2 96 Hour Hold: 96 Hour Involuntary Admission: Yes 96 Hour Hold Ending Date: 09/04/24 96 Hour Hold Ending Time: 16:30 Other Hold: Hold End Date: 09/26/24 Attestations NPU 2 Medical Necessity Statement*: Inpatient hospitalization is medically necessary and the clinically appropriate intervention at this time. We will monitor/initiate medications and make changes as indicated. Likely length of stay may be greater than 14 days if guardianship and placement is pursued. Coding Level of Care Code Acute Code for [facility] Fwd Diagnoses Schizophrenia, acute F23 Psychotic disorder F29 Depression F32.A
[2024-09-22 20:44] VITALS: BP 150/72; PULSE 85; RESP 18; TEMP 36.8; O2SAT 98
[2024-09-23] MEDS: acetaminophen 325 mg Tablet 650 MG PO (00:20)
[2024-09-23 06:00] VITALS: BP 146/91; PULSE 106; RESP 20; TEMP 36.8; O2SAT 96
[2024-09-23] MEDS: nicotine 2 mg Gum BUCCAL ×3 (06:20→14:27)
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
[2024-09-23 14:00] VITALS: BP 150/85; PULSE 110; RESP 18; TEMP 37.2; O2SAT 97
--- NOTE | 2024-09-23 14:21 | P.NPUPN_ITS ---
Subjective NPU 2 Subjective: 39-year-old male with a history of psych osis including prominent delusions admitted with disorganized behavior and thinking. 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 The patient had continued to remain suspicious of others stating that he would be going home soon despite the patient not having a home to return to at this time. There were no acts of aggression noted. He had minimized any substance use currently. Patient appeared to have a history of schizophrenia on the father side of the family. Mental Status Exam 2 MSE Comments: This is an obese white male in hospital scrubs with limited grooming and eye contact with a prominent jackson. No abnormal movements except for mild psychomotor agitation. Patient with significant pacing as well and he continues to touch his fingers repeatedly on his belly while strolling through the hallway. He was superficially cooperative with exam in no acute distress today. Speech was more normal in rate and volume and less pressured. Mood described as good. Affect was odd and mood incongruent. Thought process was linear but very superficial. Thought contact: patient denies suicidal or homicidal ideation, There were prominent paranoid delusions appreciated. He remained guarded throughout the interview. He had continued thoughts about things implanted in his body. Patient endorsed auditory but denied visual hallucinations and did appear to be responding to internal stimuli. Attention and concentration appeared intact and memory appeared unreliable but none were formally tested. Patient is alert and oriented times person and place but not time. Insight, judgment and impulse control are all impaired. Vitals/I&O/Wt Last Vital Signs Temp 98.2 F 09/23/24 06:00 Pulse 106 H 09/23/24 06:00 Resp 20 H 09/23/24 06:00 BP 146/91 09/23/24 06:00 Pulse Ox 96 09/23/24 06:00 O2 Del Method Room Air 09/23/24 06:00 09/22/24 09/23/24 09/23/24 22:59 06:59 14:59 Intake Total 480 / 1440 480 / 480 Balance 480 / 1440 480 / 480 Data NPU 08/25/24 16:28 08/25/24 16:28 A&P Assessment and plan (1) Schizophrenia, acute: (2) Psychotic disorder: (3) Depression: Plan This is a 39-year-old white male involuntarily hospitalized with decline in functioning at home with worsening psychosis currently on no medications at this time. He appears abstinent from illicit drugs and alcohol at this time. 1.? ? Encouraged individual, group and milieu therapy. ?2. ? We will attempt to gather collateral information from previous providers ?3. ? TO-15 minute checks on the unit. ?4. ? Recommend sober living treatment at the highest level of care to which the patient is willing to commit. 5. Patient received both IM 234mg, 156mg on 09/06/24 and 09/13/24 respectively. Still remains psychotic, started Latuda 40mg at 7Pm after dinner with Haldol 5mg IM if patient refuses. Involuntary Hold Information 2 96 Hour Hold: 96 Hour Involuntary Admission: Yes 96 Hour Hold Ending Date: 09/04/24 96 Hour Hold Ending Time: 16:30 Other Hold: Hold End Date: 09/26/24 Attestations NPU 2 Medical Necessity Statement*: Inpatient hospitalization is medically necessary and the clinically appropriate intervention at this time. We will monitor/initiate medications and make changes as indicated. Likely length of stay may be greater than 14 days if guardianship and placement is pursued. Coding Level of Care Code Acute Code for [facility] Fwd Diagnoses Schizophrenia, acute F23 Psychotic disorder F29 Depression F32.A
[2024-09-23] MEDS: lurasidone 80 mg Tablet 40 MG PO (16:35)
[2024-09-23 22:00] VITALS: BP 136/83; PULSE 95; RESP 18; TEMP 37.4; O2SAT 97
[2024-09-24] MEDS: calcium carbonate 500 mg Chew Tablet 1000 MG PO (04:05)
[2024-09-24] MEDS: nicotine 2 mg Gum BUCCAL ×4 (04:06→17:19)
[2024-09-24 06:00] VITALS: BP 99/65; PULSE 102; RESP 18; TEMP 36.8; O2SAT 98; BMI 36.1
[2024-09-24 14:00] VITALS: BP 122/82; PULSE 112; RESP 19; TEMP 37.2; O2SAT 93
--- NOTE | 2024-09-24 14:37 | W.PM.NPUPNS ---
Subjective NPU Subjective: 39-year-old male with a history of psychosis including prominent delusions admitted with disorganized behavior and thinking. Patient continued to have prominent delusions. 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 He had continued to remain frustrated but was able to take his oral medication yesterday and lieu of Haldol. He had continued to state that he was going to be going home soon despite the patient being on a 21-day hold due to on 09/26/2024. The patient had required some prompting but was more engaged in self-care. Mental Status Exam MSE Comments: This is an obese white male in hospital scrubs with limited grooming and eye contact with a prominent jackson. No abnormal movements except for mild psychomotor agitation. Patient with significant pacing as well and he continues to touch his fingers repeatedly on his belly while strolling through the hallway. He was superficially cooperative with exam in no acute distress today. Speech was more normal in rate and volume and less pressured. Mood described as good. Affect was odd and mood incongruent. Thought process was linear but very superficial. Thought contact: patient denies suicidal or homicidal ideation, There were prominent paranoid delusions appreciated. He remained guarded throughout the interview. Patient endorsed auditory but denied visual hallucinations and did appear to be responding to internal stimuli. Attention and concentration appeared intact and memory appeared unreliable but none were formally tested. Patient is alert and oriented times person and place and time. Insight, judgment and impulse control are all impaired. Vitals/I&O/Wt Last Vital Signs Temp 98.2 F 09/24/24 06:00 Pulse 102 H 09/24/24 06:00 Resp 18 09/24/24 06:00 BP 99/65 09/24/24 06:00 Pulse Ox 98 09/24/24 06:00 O2 Del Method Room Air 09/24/24 06:00 09/23/24 09/24/24 09/24/24 22:59 06:59 14:59 Intake Total 720 / 720 Balance 720 / 720 Weight last 48 hrs Weight 120.882 kg Data NPU 08/25/24 16:28 08/25/24 16:28 A&P Assessment and plan (1) Schizophrenia, acute: (2) Psychotic disorder: (3) Depression: Plan This is a 39-year-old white male involuntarily hospitalized with decline in functioning at home with worsening psychosis currently on no medications at this time. He appears abstinent from illicit drugs and alcohol at this time. 1.? ? Encouraged individual, group and milieu therapy. ?2. ? We will attempt to gather collateral information from previous providers ?3. ? TO-15 minute checks on the unit. ?4. ? Recommend sober living treatment at the highest level of care to which the patient is willing to commit. 5. Patient received both IM 234mg, 156mg on 09/06/24 and 09/13/24 respectively. Still remains psychotic, Continue Latuda 40mg at 7Pm after dinner with Haldol 5mg IM if patient refuses. Involuntary Hold Information 96 Hour Hold: 96 Hour Involuntary Admission: Yes 96 Hour Hold Ending Date: 09/04/24 96 Hour Hold Ending Time: 16:30 Other Hold: Hold End Date: 09/26/24 Attestations NPU Medical Necessity Statement*: Inpatient hospitalization is medically necessary and the clinically appropriate intervention at this time. We will monitor/initiate medications and make changes as indicated. Likely length of stay may be greater than 14 days if guardianship and placement is pursued. Coding Level of Care Code Acute Code for [facility] Diagnoses Schizophrenia, acute F23 Psychotic disorder F29 Depression F32.A
[2024-09-24] MEDS: lurasidone 80 mg Tablet 40 MG PO (17:19)
[2024-09-24 19:28] VITALS: BP 119/80; PULSE 82; RESP 16; TEMP 36.8; O2SAT 96
[2024-09-25] MEDS: nicotine 2 mg Gum BUCCAL ×4 (00:02→17:27)
[2024-09-25] MEDS: loperamide 2 mg Capsule PO (03:07)
--- NOTE | 2024-09-25 05:10 | PC.NURSE ---
BEHAVIORS AT APPROXIMATELY 0315 PT CAME UP TO THE NURSES STATION AND ASKED IF HE COULD HAVE SOME PEPTO BECAUSE HE WAS HAVING DIARRHEA. tHIS NURSE OFFERED IMODIUM INSTEAD AND PT AGREED. PT TOOK THE MEDICATION AND ABOUT 5 MINUTES LATER CAME BACK UP AND STATED YEAH IM STILL GOING TO NEED THAT PEPTO BECAUSE YOU DIDNT GIVE ME IMODIUM. THIS NURSE ASSURED THE PATIENT THAT HE RECIEVED IMODIUM AND HE REPLIED NO YOU TRICKED ME INTO TAKING A PSYCH PILL YOU BITCH IM NOT STUPID. THIS NURSE GAVE THE PATIENT THE MEDICATION PACKAGE TO READ AND HE STATED YEAH THIS ISN'T IMODIUM ITS LOPERAMIDE. NURSING STAFF ATTEMPTED TO EXPLAIN TO THE PATIENT THAT LOPERAMIDE AND IMODIUM ARE THE SAME THING AND ALL MEDICATIONS HAVE A BRAND NAME AND A GENERIC NAME. 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 PT THEN WALKED DOWN THE HALLWAY CONTINUING TO YELL/CURSE AT THIS NURSE.SECURITY WAS CALL AT 0325. AT AROUND 0330 PT CAME BACK UP TO THE WINDOW AND ASKED IF HE COULD HAVE THE PEPTO. THIS NURSE EXPLAINED TO THE PT THAT DUE TO A DRUG INTERACTION THE PEPTO COULD NOT BE ORDERED. THE PATIENT THEN BEGAN YELLING AGAIN STATING ITS BECAUSE YOU GAVE ME FUCKING LITHIUM EVEN THOUGH IM ALLERGIC. NURSING STAFF ATTEMPTED AGAIN TO EXPLAIN TO THE PATIENT THAT HE WAS GIVEN IMODIUM TO WHICH HE REPLIED IMODIUM DOESN'T EVEN COME IN PILL FORM, IT SHOULD COME IN A LIQUID. THEN HE STATED IM A DOCTOR, I KNOW WHAT IM TALKING ABOUT AND THEN WALKED TO THE DAYROOM. SINCE THEN PT HAS WALKED UP AND DOWN THE HALLWAY, WATCHED TV IN THE DAYROOM AND WENT TO HIS ROOM. PT IS NOW LAYING IN BED WITH HIS EYES CLOSED. BEHAVIORAL MONITORING CONTINUES
[2024-09-25 06:00] VITALS: BP 147/96; PULSE 100; RESP 16; TEMP 36.6; O2SAT 97
[2024-09-25 14:00] VITALS: BP 104/64; PULSE 76; RESP 18; TEMP 36.4; O2SAT 97
--- NOTE | 2024-09-25 14:26 | P.NPUPN_ITS ---
Subjective NPU 2 Subjective: 39-year-old male with a history of psych osis including prominent delusions admitted with disorganized behavior and thinking. No substantial changes appreciated. He continued to have unusual behavior on the unit appearing to engage in bizarre hand movements that were communication with [place] soldiers. He had continued to report that he would be going home to live with his and children although they were not together at this time. He had no visitors. He did not appear to engage in any aggression. He reported good sleep. Patient continued to state that he was here inappropriately. Mental Status Exam 2 MSE Comments: This is an obese white male in hospital scrubs with limited grooming and eye contact with a prominent jackson. No abnormal movements except for mild psychomotor agitation. Patient with significant pacing as well and he continues to touch his fingers repeatedly on his stomach while walking aimlessly through the hallway. He was superficially cooperative with exam in no acute distress today. Speech was more normal in rate and volume and less pressured. Mood described as good. Affect was odd and mood incongruent. Thought process was linear but very superficial. Thought contact: patient denies suicidal or homicidal ideation, There were prominent paranoid delusions appreciated. He remained guarded throughout the interview. Patient denied auditory and denied visual hallucinations but appear to be responding to internal stimuli. Attention and concentration appeared intact and memory appeared unreliable but none were formally tested. Patient is alert and oriented times person and place and time. Insight, judgment and impulse control are all impaired. Vitals/I&O/Wt Last Vital Signs Temp 97.5 F L 09/25/24 14:00 Pulse 76 09/25/24 14:00 Resp 18 09/25/24 14:00 BP 104/64 09/25/24 14:00 Pulse Ox 97 09/25/24 14:00 O2 Del Method Room Air 09/25/24 06:00 09/24/24 09/25/24 09/25/24 22:59 06:59 14:59 Intake Total 360 / 1080 Balance 360 / 1080 Weight last 48 hrs Weight 120.882 kg Data NPU 08/25/24 16:28 08/25/24 16:28 A&P Assessment and plan (1) Schizophrenia, acute: (2) Psychotic disorder: (3) Depression: Plan This is a 39-year-old white male involuntarily hospitalized with decline in functioning at home with worsening psychosis currently on no medications at this time. He appears abstinent from illicit drugs and alcohol at this time. 1.? ? Encouraged individual, group and milieu therapy. ?2. ? We will attempt to gather collateral information from previous providers ?3. ? TO-15 minute checks on the unit. ?4. ? Recommend sober living treatment at the highest level of care to which the patient is willing to commit. 5. Patient received both IM 234mg, 156mg on 09/06/24 and 09/13/24 respectively. Still remains psychotic, Continue Latuda 40mg at 7Pm after dinner with Haldol 5mg IM if patient refuses oral supplementation. Involuntary Hold Information 2 96 Hour Hold: 96 Hour Involuntary Admission: Yes 96 Hour Hold Ending Date: 09/04/24 96 Hour Hold Ending Time: 16:30 Other Hold: Hold End Date: 09/26/24 Attestations NPU 2 Medical Necessity Statement*: Inpatient hospitalization is medically necessary and the clinically appropriate intervention at this time. We will monitor/initiate medications and make changes as indicated. Likely length of stay may be greater than 14 days if guardianship and placement is pursued. Coding Level of Care Code Acute Code for g Fwd Diagnoses Schizophrenia, acute F23 Psychotic disorder F29 Depression F32.A
[2024-09-25] MEDS: lurasidone 80 mg Tablet 40 MG PO (17:27)
[2024-09-25 19:40] VITALS: BP 163/79; PULSE 100; RESP 18; TEMP 36.6; O2SAT 96
[2024-09-26] MEDS: nicotine 2 mg Gum BUCCAL ×4 (05:22→16:03)
[2024-09-26 06:00] VITALS: BP 100/75; PULSE 93; RESP 18; TEMP 36.6; O2SAT 96
[2024-09-26 14:00] VITALS: BP 147/84; PULSE 88; RESP 17; TEMP 36.6; O2SAT 95
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
[2024-09-26] MEDS: lurasidone 80 mg Tablet 40 MG PO (17:22)
[2024-09-26 20:20] VITALS: BP 134/78; PULSE 94; RESP 18; TEMP 36.5; O2SAT 96
[2024-09-27 06:00] VITALS: BP 136/87; PULSE 99; RESP 18; TEMP 36.6; O2SAT 97
[2024-09-27] MEDS: nicotine 2 mg Gum BUCCAL ×5 (06:01→21:24)
[2024-09-27 14:00] VITALS: BP 144/93; PULSE 65; RESP 18; TEMP 36.8; O2SAT 100
--- NOTE | 2024-09-27 14:48 | P.NPUPN_ITS ---
Subjective NPU 2 Subjective: Patient presented today reporting that he is fine and has not had any problems and does not really want to talk. He continues to be upset that the court has not engaged him since he was told that the 90-day hold paperwork has been submitted. He denied any problems or any issues and reports that he does not really want to talk and he feels like he has been cheated. He began talking about a lawsuit and malpractice suit and that we will regret taking his civil rights. Mental Status Exam 2 MSE Comments: This is an obese white male in hospital scrubs with limited grooming and eye contact with a prominent jackson. No abnormal movements except for mild to extreme psychomotor agitation. Patient with significant pacing as well and he continues to touch his fingers repeatedly on his stomach while walking aimlessly through the hallway. He has been essentially uncooperative with examination since he was told that the 90-day hold paperwork was filed. Speech was limited but decreased volume and less pressured. Mood described as I am ready to go. Affect was odd and irritable. Thought process was linear but very superficial. Thought contact: patient denies suicidal or homicidal ideation, There were prominent paranoid delusions appreciated. He remained guarded throughout the interview. Patient denied auditory and denied visual hallucinations but appeared to be responding to internal stimuli. Attention and concentration appeared intact and memory appeared unreliable but none were formally tested. Patient is alert and oriented times person and place and time. Insight, judgment and impulse control are all impaired. Vitals/I&O/Wt Last Vital Signs Temp 97.9 F 09/27/24 06:00 Pulse 99 09/27/24 06:00 Resp 18 09/27/24 06:00 BP 136/87 09/27/24 06:00 Pulse Ox 97 09/27/24 06:00 O2 Del Method Room Air 09/27/24 06:00 09/26/24 09/27/24 09/27/24 22:59 06:59 14:59 Intake Total 240 / 720 Balance 240 / 720 Data NPU 08/25/24 16:28 08/25/24 16:28 A&P Assessment and plan (1) Schizophrenia, acute: (2) Psychotic disorder: (3) Depression: Plan This is a 39-year-old white male involuntarily hospitalized with decline in functioning at home with worsening psychosis currently on no medications at this time. He appears abstinent from illicit drugs and alcohol at this time. 1.? ? Encouraged individual, group and milieu therapy. ?2. ? We will attempt to gather collateral information from previous providers ?3. ? TO-15 minute checks on the unit. ?4. ? Recommend sober living treatment at the highest level of care to which the patient is willing to commit. 5. Patient received both IM 234mg, 156mg on 09/06/24 and 09/13/24 respectively. Still remains psychotic, Continue Latuda 40mg at 7Pm after dinner with Haldol 5mg IM if patient refuses oral supplementation. Involuntary Hold Information 2 96 Hour Hold: 96 Hour Involuntary Admission: Yes 96 Hour Hold Ending Date: 09/04/24 96 Hour Hold Ending Time: 16:30 Other Hold: Hold End Date: 09/27/27 Attestations NPU 2 Medical Necessity Statement*: Inpatient hospitalization is medically necessary and the clinically appropriate intervention at this time. We will monitor/initiate medications and make changes as indicated. Likely length of stay may be greater than 14 as guardianship/placement are managed. Coding Level of Care Code Acute Code for [facility] Fwd Diagnoses Schizophrenia, acute F23 Psychotic disorder F29 Depression F32.A
[2024-09-27] MEDS: lurasidone 80 mg Tablet 40 MG PO (16:26)
[2024-09-27 20:03] VITALS: BP 120/57; PULSE 87; RESP 18; TEMP 37.2; O2SAT 98
[2024-09-28] MEDS: nicotine 2 mg Gum BUCCAL ×5 (04:00→20:13)
[2024-09-28 06:00] VITALS: BP 140/91; PULSE 84; RESP 18; TEMP 36.9; O2SAT 95
[2024-09-28 14:00] VITALS: BP 144/92; PULSE 92; RESP 16; TEMP 36.8; O2SAT 95
[2024-09-28] MEDS: lurasidone 80 mg Tablet 40 MG PO (16:36)
--- NOTE | 2024-09-28 18:44 | W.PM.NPUPNS ---
Subjective NPU Subjective: Patient presented today continuing to be less engaged and less engageable secondary to being upset about the 90-day hold hearing. He continued to deny any issues but continued to pace and pat his belly and his psychotic ritual per staff reports and direct observation. We discussed the fact that his 90-day hold hearing is tomorrow to which he responded great. Mental Status Exam MSE Comments: This is an obese white male in hospital scrubs with limited grooming and eye contact with a prominent jackson. No abnormal movements except for mild to extreme psychomotor agitation. Patient with significant pacing as well and he continues to touch his fingers repeatedly on his stomach while walking aimlessly through the hallway. He has been essentially uncooperative with examination since he was told that the 90-day hold paperwork was filed. Speech was limited but decreased volume and less pressured. Mood described as I am ready to go. Affect was odd and irritable. Thought process was linear but very superficial. Thought contact: patient denies suicidal or homicidal ideation, There were prominent paranoid delusions appreciated. He remained guarded throughout the interview. Patient denied auditory and denied visual hallucinations but appeared to be responding to internal stimuli. Attention and concentration appeared intact and memory appeared unreliable but none were formally tested. Patient is alert and oriented times person and place and time. Insight, judgment and impulse control are all impaired. Vitals/I&O/Wt Last Vital Signs Temp 98.2 F 09/28/24 14:00 Pulse 92 09/28/24 14:00 Resp 16 09/28/24 14:00 BP 144/92 09/28/24 14:00 Pulse Ox 95 09/28/24 14:00 O2 Del Method Room Air 09/28/24 14:00 09/28/24 09/29/24 09/29/24 22:59 06:59 14:59 Intake Total 120 / 360 Balance 120 / 360 Data NPU 08/25/24 16:28 08/25/24 16:28 A&P Assessment and plan (1) Schizophrenia, acute: (2) Psychotic disorder: (3) Depression: Plan This is a 39-year-old white male involuntarily hospitalized with decline in functioning at home with worsening psychosis currently on no medications at this time. He appears abstinent from illicit drugs and alcohol at this time. 1.? ? Encouraged individual, group and milieu therapy. ?2. ? We will attempt to gather collateral information from previous providers ?3. ? TO-15 minute checks on the unit. ?4. ? Recommend sober living treatment at the highest level of care to which the patient is willing to commit. 5. Patient received both IM 234mg, 156mg on 09/06/24 and 09/13/24 respectively. Still remains psychotic, Continue Latuda 40mg at 7Pm after dinner with Haldol 5mg IM if patient refuses oral supplementation. 6. 90-day hold hearing tomorrow. Paperwork filed. Involuntary Hold Information 96 Hour Hold: 96 Hour Involuntary Admission: Yes 96 Hour Hold Ending Date: 09/04/24 96 Hour Hold Ending Time: 16:30 Other Hold: Hold End Date: 09/27/27 Attestations NPU Medical Necessity Statement*: Inpatient hospitalization is medically necessary and the clinically appropriate intervention at this time. We will monitor/initiate medications and make changes as indicated. Likely length of stay may be greater than 14 as guardianship/placement are managed. Coding Level of Care Code Acute Code for [facility] Fwd Diagnoses Schizophrenia, acute F23 Psychotic disorder F29 Depression F32.A
[2024-09-28 22:00] VITALS: BP 114/78; PULSE 82; RESP 17; TEMP 36.6; O2SAT 96
[2024-09-29] MEDS: nicotine 2 mg Gum BUCCAL ×7 (01:27→19:36)
[2024-09-29 06:00] VITALS: BP 108/58; PULSE 81; RESP 15; TEMP 36.7; O2SAT 97
[2024-09-29 14:00] VITALS: BP 130/84; PULSE 95; RESP 15; TEMP 36.7; O2SAT 94
--- NOTE | 2024-09-29 14:11 | PC.NURSE ---
Back on unit at 1406 from 90-day court
--- NOTE | 2024-09-29 15:26 | P.NPUPN_ITS ---
Subjective NPU 2 Subjective: Patient presented today reporting that he is doing okay. He represented himself well in court acknowledging that even though he would like for the court to let him go home he knows that based on the circumstances that they will not showing some insight into his dysfunction. Otherwise he reports that he is having no side effects of the medication and would rather not be here but understands that we have concerns about his continued psychosis. Mental Status Exam 2 MSE Comments: This is an obese white male in hospital scrubs with limited grooming and eye contact with a prominent jackson. No abnormal movements except for mild to extreme psychomotor agitation. Patient with significant pacing as well and he continues to touch his fingers repeatedly on his stomach while walking aimlessly through the hallway. He has been essentially uncooperative with examination since he was told that the 90-day hold paperwork was filed. Speech was limited but decreased volume and less pressured. Mood described as I am ready to go. Affect was odd and irritable. Thought process was linear but very superficial. Thought contact: patient denies suicidal or homicidal ideation, There were prominent paranoid delusions appreciated. He remained guarded throughout the interview. Patient denied auditory and denied visual hallucinations but appeared to be responding to internal stimuli. Attention and concentration appeared intact and memory appeared unreliable but none were formally tested. Patient is alert and oriented times person and place and time. Insight, judgment and impulse control are all impaired. Vitals/I&O/Wt Last Vital Signs Temp 98.1 F 09/29/24 14:00 Pulse 95 09/29/24 14:00 Resp 15 09/29/24 14:00 BP 130/84 09/29/24 14:00 Pulse Ox 94 09/29/24 14:00 O2 Del Method Room Air 09/29/24 14:00 09/29/24 09/29/24 09/29/24 06:59 14:59 22:59 Intake Total 720 / 720 Balance 720 / 720 Data NPU 08/25/24 16:28 08/25/24 16:28 A&P Assessment and plan (1) Schizophrenia, acute: (2) Psychotic disorder: (3) Depression: Plan This is a 39-year-old white male involuntarily hospitalized with decline in functioning at home with worsening psychosis currently on no medications at this time. He appears abstinent from illicit drugs and alcohol at this time. 1.? ? Encouraged individual, group and milieu therapy. ?2. ? We will attempt to gather collateral information from previous providers ?3. ? TO-15 minute checks on the unit. ?4. ? Recommend sober living treatment at the highest level of care to which the patient is willing to commit. 5. Patient received both IM 234mg, 156mg on 09/06/24 and 09/13/24 respectively. Still remains psychotic, Continue Latuda 40mg at 7Pm after dinner with Haldol 5mg IM if patient refuses oral supplementation. 6. 90-day hold hearing was today but due to a technicality he was placed on another 21-day hold and we will need to file for a 90-day hold if he is going to be here within the next 17 days which is with the statute actually says for that transition alone. Going from a 21 to a 90 day hold requires that a notice is filed within 17 days. Has not required when going from 90 days to 1 year which would be the next step. Involuntary Hold Information 2 96 Hour Hold: 96 Hour Involuntary Admission: Yes 96 Hour Hold Ending Date: 09/04/24 96 Hour Hold Ending Time: 16:30 Other Hold: Hold End Date: 09/27/27 Attestations NPU 2 Medical Necessity Statement*: Inpatient hospitalization is medically necessary and the clinically appropriate intervention at this time. We will monitor/initiate medications and make changes as indicated. Likely length of stay may be greater than 14 as guardianship/placement are managed. Coding Level of Care Code Acute Code for [facility] Fwd Diagnoses Schizophrenia, acute F23 Psychotic disorder F29 Depression F32.A
[2024-09-29] MEDS: lurasidone 80 mg Tablet 40 MG PO (17:31)
[2024-09-29] MEDS: acetaminophen 325 mg Tablet 650 MG PO (18:51)
[2024-09-29 22:00] VITALS: BP 114/66; PULSE 88; RESP 16; TEMP 36.6; O2SAT 97
[2024-09-30] MEDS: nicotine 2 mg Gum BUCCAL ×6 (04:36→21:43)
[2024-09-30 06:00] VITALS: BP 130/83; PULSE 85; RESP 17; TEMP 36.6; O2SAT 95
--- NOTE | 2024-09-30 13:04 | P.NPUPN_ITS ---
Subjective NPU 2 Subjective: Patient presented today denying any issues or changes. He continued to pace the unit and pad on his abdomen per staff reports and direct observation. He continues to be somewhat resistant to interview still somewhat irritable about being placed on the continue to hold. Otherwise he denied any problems or any side effects to medication. Mental Status Exam 2 MSE Comments: This is an obese white male in hospital scrubs with limited grooming and eye contact with a prominent jackson. No abnormal movements except for mild to extreme psychomotor agitation. Patient with significant pacing as well and he continues to touch his fingers repeatedly on his stomach while walking aimlessly through the hallway. He has been essentially uncooperative with examination since he was told that the 90-day hold paperwork was filed. Speech was limited but decreased volume and less pressured. Mood described as I am ready to go. Affect was odd and irritable. Thought process was linear but very superficial. Thought contact: patient denies suicidal or homicidal ideation, There were prominent paranoid delusions appreciated. He remained guarded throughout the interview. Patient denied auditory and denied visual hallucinations but appeared to be responding to internal stimuli. Attention and concentration appeared intact and memory appeared unreliable but none were formally tested. Patient is alert and oriented times person and place and time. Insight, judgment and impulse control are all impaired. Vitals/I&O/Wt Last Vital Signs Temp 97.9 F 09/30/24 06:00 Pulse 85 09/30/24 06:00 Resp 17 09/30/24 06:00 BP 130/83 09/30/24 06:00 Pulse Ox 95 09/30/24 06:00 O2 Del Method Room Air 09/30/24 06:00 09/29/24 09/30/24 09/30/24 22:59 06:59 14:59 Intake Total 240 / 960 Balance 240 / 960 Data NPU 08/25/24 16:28 08/25/24 16:28 A&P Assessment and plan (1) Schizophrenia, acute: (2) Psychotic disorder: (3) Depression: Plan This is a 39-year-old white male involuntarily hospitalized with decline in functioning at home with worsening psychosis currently on no medications at this time. He appears abstinent from illicit drugs and alcohol at this time. 1.? ? Encouraged individual, group and milieu therapy. ?2. ? We will attempt to gather collateral information from previous providers ?3. ? TO-15 minute checks on the unit. ?4. ? Recommend sober living treatment at the highest level of care to which the patient is willing to commit. 5. Patient received both IM 234mg, 156mg on 09/06/24 and 09/13/24 respectively. Still remains psychotic, Continue Latuda 40mg at 7Pm after dinner with Haldol 5mg IM if patient refuses oral supplementation. 6. 90-day hold hearing was today but due to a technicality he was placed on another 21-day hold and we will need to file for a 90-day hold if he is still going to be here within the next 17 days which is what the statute actually says for that transition alone. Going from a 21 to a 90 day hold requires that a notice is filed within 17 days. Has not required when going from 90 days to 1 year which would be the next step. Involuntary Hold Information 2 96 Hour Hold: 96 Hour Involuntary Admission: Yes 96 Hour Hold Ending Date: 09/04/24 96 Hour Hold Ending Time: 16:30 Other Hold: Hold End Date: 09/27/27 Attestations NPU 2 Medical Necessity Statement*: Inpatient hospitalization is medically necessary and the clinically appropriate intervention at this time. We will monitor/initiate medications and make changes as indicated. Likely length of stay may be greater than 14 as guardianship/placement are managed. Coding Level of Care Code Acute Code for [facility] Fwd Diagnoses Schizophrenia, acute F23 Psychotic disorder F29 Depression F32.A
--- NOTE | 2024-09-30 13:26 | PC.NURSE ---
DR. CASILLAS INFORMED THIS RN THAT PT WAS NOT PLACED ON A 90 DAY HOLD DUE TO IT NOT BEING FILED WITHIN THE FIRST 17 DAYS OF THE 21 DAY HOLD. 90 DAY HOLD ORDER WAS REMOVED AND AWAITING SECOND 21 DAY HOLD PAPER WORK FROM [facility].
[2024-09-30 14:00] VITALS: BP 129/66; PULSE 82; RESP 17; TEMP 36.8; O2SAT 96
[2024-09-30] MEDS: lurasidone 80 mg Tablet 40 MG PO (16:38)
[2024-09-30] MEDS: acetaminophen 325 mg Tablet 650 MG PO (16:57)
[2024-09-30 22:00] VITALS: BP 143/73; PULSE 84; RESP 16; TEMP 36.5; O2SAT 97
[2024-10-01] MEDS: nicotine 2 mg Gum BUCCAL ×6 (03:21→17:38)
[2024-10-01] MEDS: acetaminophen 325 mg Tablet 650 MG PO ×3 (04:35→17:05)
[2024-10-01 06:00] VITALS: BP 135/76; PULSE 82; RESP 17; O2SAT 95
--- NOTE | 2024-10-01 10:46 | P.NPUPN_ITS ---
Subjective NPU 2 Subjective: Patient presented today denying any issues or really wanting to talk about anything. He continued to be isolative to some degree and pace per staff reports and direct observation. He continued to mumble to himself and pace the hallways and seem to be uttering things about not wanting to be here. Otherwise he continued to discuss awaiting placement and improvement in his symptoms. Mental Status Exam 2 MSE Comments: This is an obese white male in hospital scrubs with limited grooming and eye contact with a prominent jackson. No abnormal movements except for mild to extreme psychomotor agitation. Patient with significant pacing as well and he continues to touch his fingers repeatedly on his stomach while walking aimlessly through the hallway. He has been essentially uncooperative with examination since he was told that the 90-day hold paperwork was filed. Speech was limited but decreased volume and less pressured. Mood described as I am ready to go. Affect was odd and irritable. Thought process was linear but very superficial. Thought contact: patient denies suicidal or homicidal ideation, There were prominent paranoid delusions appreciated. He remained guarded throughout the interview. Patient denied auditory and denied visual hallucinations but appeared to be responding to internal stimuli. Attention and concentration appeared intact and memory appeared unreliable but none were formally tested. Patient is alert and oriented times person and place and time. Insight, judgment and impulse control are all impaired. Vitals/I&O/Wt Last Vital Signs Temp 97.7 F 09/30/24 22:00 Pulse 82 10/01/24 06:00 Resp 17 10/01/24 06:00 BP 135/76 10/01/24 06:00 Pulse Ox 95 10/01/24 06:00 O2 Del Method Room Air 10/01/24 06:00 Weight last 48 hrs Weight 128.911 kg Data NPU 08/25/24 16:28 08/25/24 16:28 A&P Assessment and plan (1) Schizophrenia, acute: (2) Psychotic disorder: (3) Depression: Plan This is a 39-year-old white male involuntarily hospitalized with decline in functioning at home with worsening psychosis currently on no medications at this time. He appears abstinent from illicit drugs and alcohol at this time. 1.? ? Encouraged individual, group and milieu therapy. ?2. ? We will attempt to gather collateral information from previous providers ?3. ? TO-15 minute checks on the unit. ?4. ? Recommend sober living treatment at the highest level of care to which the patient is willing to commit. 5. Patient received both IM 234mg, 156mg on 09/06/24 and 09/13/24 respectively. Still remains psychotic, Continue Latuda 40mg at 7Pm after dinner with Haldol 5mg IM if patient refuses oral supplementation. 6. 90-day hold hearing was today but due to a technicality he was placed on another 21-day hold and we will need to file for a 90-day hold if he is still going to be here within the next 17 days which is what the statute actually says for that transition alone. Going from a 21 to a 90 day hold requires that a notice is filed within 17 days. Has not required when going from 90 days to 1 year which would be the next step. Involuntary Hold Information 2 96 Hour Hold: 96 Hour Involuntary Admission: Yes 96 Hour Hold Ending Date: 09/04/24 96 Hour Hold Ending Time: 16:30 Other Hold: Hold End Date: 09/27/27 Attestations NPU 2 Medical Necessity Statement*: Inpatient hospitalization is medically necessary and the clinically appropriate intervention at this time. We will monitor/initiate medications and make changes as indicated. Likely length of stay may be greater than 14 as guardianship/placement are managed. Coding Level of Care Code Acute Code for [facility] Fwd Diagnoses Schizophrenia, acute F23 Psychotic disorder F29 Depression F32.A
[2024-10-01 14:00] VITALS: BP 108/57; PULSE 94; RESP 18; TEMP 37.1; O2SAT 97
[2024-10-01] MEDS: lurasidone 80 mg Tablet 40 MG PO (17:06)
[2024-10-01 22:00] VITALS: BP 143/89; PULSE 79; RESP 16; TEMP 36.6; O2SAT 96
[2024-10-02] MEDS: nicotine 2 mg Gum BUCCAL ×5 (01:05→20:35)
[2024-10-02 06:00] VITALS: RESP 18
--- NOTE | 2024-10-02 06:15 | PC.NURSE ---
Patient refused nurse notified.
--- NOTE | 2024-10-02 10:37 | PC.NURSE ---
NEW ORDERS RECEIVED TO INCREASE LATUDA FROM 40 MG TO 60 MG PO DAILY WITH FIRST DOSE TO START AT 1700. PT EDUCATED ON NEW ORDERS AND VERBALIZED UNDERSTANDING. SUPPORT VOICED.
[2024-10-02] MEDS: acetaminophen 325 mg Tablet 650 MG PO (12:38)
[2024-10-02 14:00] VITALS: BP 150/88; PULSE 83; RESP 16; TEMP 36.7; O2SAT 96
--- NOTE | 2024-10-02 15:27 | P.NPUPN_ITS ---
Subjective NPU 2 Subjective: Patient presented today reporting that he is doing well. He continues to be psychotic per staff reports and direct observation. His psychosis included significant grandiosity. 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 But his irritability was possibly less prevalent per staff reports with more jovial nature but still some agitated moments. He denied any side effects medication and we discussed increasing his Latuda. Mental Status Exam 2 MSE Comments: This is an obese white male in hospital scrubs with limited grooming and eye contact with a prominent jackson. No abnormal movements except for mild to extreme psychomotor agitation. Patient with significant pacing as well and he continues to touch his fingers repeatedly on his stomach while walking aimlessly through the hallway. Slightly more cooperative with exam. Speech was limited normal volume and less pressured. Mood described as I am fine. Affect was odd and irritable. Thought process was linear but very superficial. Thought contact: patient denies suicidal or homicidal ideation, There were prominent paranoid delusions appreciated. He remained guarded throughout the interview. Patient denied auditory and denied visual hallucinations but appeared to be responding to internal stimuli. Attention and concentration appeared intact and memory appeared unreliable but none were formally tested. Patient is alert and oriented times person and place and time. Insight, judgment and impulse control are all impaired. Vitals/I&O/Wt Last Vital Signs Temp 98 F 10/01/24 22:00 Pulse 79 10/01/24 22:00 Resp 18 10/02/24 06:00 BP 143/89 10/01/24 22:00 Pulse Ox 96 10/01/24 22:00 O2 Del Method Room Air 10/01/24 22:00 Weight last 48 hrs Weight 128.911 kg Data NPU 08/25/24 16:28 08/25/24 16:28 A&P Assessment and plan (1) Schizophrenia, acute: (2) Psychotic disorder: (3) Depression: Plan This is a 39-year-old white male involuntarily hospitalized with decline in functioning at home with worsening psychosis currently on no medications at this time. He appears abstinent from illicit drugs and alcohol at this time. 1.? ? Encouraged individual, group and milieu therapy. ?2. ? We will attempt to gather collateral information from previous providers ?3. ? TO-15 minute checks on the unit. ?4. ? Recommend sober living treatment at the highest level of care to which the patient is willing to commit. 5. Patient received both IM 234mg, 156mg on 09/06/24 and 09/13/24 respectively. Still remains psychotic, Continue Latuda 40mg at 7Pm after dinner with Haldol 5mg IM if patient refuses oral supplementation. Increase Latuda to 60 mg at 7 PM. 6. 90-day hold hearing was today but due to a technicality he was placed on another 21-day hold and we will need to file for a 90-day hold if he is still going to be here within the next 17 days which is what the statute actually says for that transition alone. Going from a 21 to a 90 day hold requires that a notice is filed within 17 days. Has not required when going from 90 days to 1 year which would be the next step. Involuntary Hold Information 2 96 Hour Hold: 96 Hour Involuntary Admission: Yes 96 Hour Hold Ending Date: 09/04/24 96 Hour Hold Ending Time: 16:30 Other Hold: Hold End Date: 09/27/27 Attestations NPU 2 Medical Necessity Statement*: Inpatient hospitalization is medically necessary and the clinically appropriate intervention at this time. We will monitor/initiate medications and make changes as indicated. Likely length of stay may be greater than 14 as guardianship/placement are managed. Coding Level of Care Code Acute Code for [facility] Fwd Diagnoses Schizophrenia, acute F23 Psychotic disorder F29 Depression F32.A
[2024-10-02] MEDS: lurasidone 20 mg Tablet 60 MG PO (16:48)
[2024-10-02 20:37] VITALS: BP 147/87; PULSE 85; RESP 18; TEMP 36.6; O2SAT 96
[2024-10-03] MEDS: acetaminophen 325 mg Tablet 650 MG PO (01:15)
[2024-10-03] MEDS: nicotine 2 mg Gum BUCCAL ×5 (03:30→20:30)
[2024-10-03 06:00] VITALS: BP 147/93; PULSE 96; RESP 18; TEMP 36.8; O2SAT 96
--- NOTE | 2024-10-03 09:36 | PC.NURSE ---
Morning assessment During morning assessment, patient became agitated, saying that paperwork was brought over about warding in [place], [place]. Patient stated that it is not funny because it has to do with people being held against their will. Patient said it happens to people who are innocent.
[2024-10-03 14:00] VITALS: BP 141/91; PULSE 82; RESP 17; TEMP 36.4; O2SAT 94
[2024-10-03] MEDS: lurasidone 20 mg Tablet 60 MG PO (17:48)
--- NOTE | 2024-10-03 18:02 | P.NPUPN_ITS ---
Subjective NPU 2 Subjective: Patient presented today reporting that things were not good. He is aware of the plan to find functional and supportive housing in the [place] 2 but would prefer to go home. He continues to pace the halls and talk to himself and pad on his stomach per staff reports and direct observation. He continues to get frustrated when talking about the process but otherwise endorsed no other issues other than being here. He denied any side effects to medication. Mental Status Exam 2 MSE Comments: This is an obese white male in hospital scrubs with limited grooming and eye contact with a prominent jackson. No abnormal movements except for mild to extreme psychomotor agitation. Patient with significant pacing as well and he continues to touch his fingers repeatedly on his stomach while walking aimlessly through the hallway. Slightly more cooperative with exam. Speech was limited normal volume and less pressured. Mood described as I am fine. Affect was odd and irritable. Thought process was linear but very superficial. Thought contact: patient denies suicidal or homicidal ideation, There were prominent paranoid delusions appreciated. He remained guarded throughout the interview. Patient denied auditory and denied visual hallucinations but appeared to be responding to internal stimuli. Attention and concentration appeared intact and memory appeared unreliable but none were formally tested. Patient is alert and oriented times person and place and time. Insight, judgment and impulse control are all impaired. Vitals/I&O/Wt Last Vital Signs Temp 97.6 F 10/03/24 14:00 Pulse 82 10/03/24 14:00 Resp 17 10/03/24 14:00 BP 141/91 10/03/24 14:00 Pulse Ox 94 10/03/24 14:00 O2 Del Method Room Air 10/03/24 06:00 Data NPU 08/25/24 16:28 08/25/24 16:28 A&P Assessment and plan (1) Schizophrenia, acute: (2) Psychotic disorder: (3) Depression: Plan This is a 39-year-old white male involuntarily hospitalized with decline in functioning at home with worsening psychosis currently on no medications at this time. He appears abstinent from illicit drugs and alcohol at this time. 1.? ? Encouraged individual, group and milieu therapy. ?2. ? We will attempt to gather collateral information from previous providers ?3. ? TO-15 minute checks on the unit. ?4. ? Recommend sober living treatment at the highest level of care to which the patient is willing to commit. 5. Patient received both IM 234mg, 156mg on 09/06/24 and 09/13/24 respectively. Still remains psychotic, Continue Latuda 40mg at 7Pm after dinner with Haldol 5mg IM if patient refuses oral supplementation. Increased Latuda to 60 mg at 7 PM. 6. 90-day hold hearing was today but due to a technicality he was placed on another 21-day hold and we will need to file for a 90-day hold if he is still going to be here within the next 17 days which is what the statute actually says for that transition alone. Going from a 21 to a 90 day hold requires that a notice is filed within 17 days. Has not required when going from 90 days to 1 year which would be the next step. Involuntary Hold Information 2 96 Hour Hold: 96 Hour Involuntary Admission: Yes 96 Hour Hold Ending Date: 09/04/24 96 Hour Hold Ending Time: 16:30 Other Hold: Hold End Date: 09/27/27 Attestations NPU 2 Medical Necessity Statement*: Inpatient hospitalization is medically necessary and the clinically appropriate intervention at this time. We will monitor/initiate medications and make changes as indicated. Likely length of stay may be greater than 14 as guardianship/placement are managed. Coding Level of Care Code Acute Code for [facility] Fwd Diagnoses Schizophrenia, acute F23 Psychotic disorder F29 Depression F32.A
[2024-10-03 20:26] VITALS: BP 127/83; PULSE 94; RESP 17; TEMP 36.5; O2SAT 97
[2024-10-04] MEDS: nicotine 2 mg Gum BUCCAL ×3 (05:40→15:41)
[2024-10-04 06:00] VITALS: BP 149/90; PULSE 92; RESP 20; TEMP 36.4; O2SAT 96
--- NOTE | 2024-10-04 07:44 | P.NPUPN_ITS ---
Subjective NPU 2 Subjective: Patient presented today reporting that he is doing okay. He continues to express frustration about being on the unit and being in the hospital but continues to take the medication and be compliant. He reports looking forward to being discharged. Otherwise he was more pleasant overall and was being somewhat grandiose per staff reports and direct observation with continued reports of special abilities. 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 He reported that he and his mother have all kinds of motor homes that they drive around the [place] and parked places and then drive their car to all the motor homes and RVs they have when a conversation about RVs took place. He denies any side effects to the medication. Mental Status Exam 2 MSE Comments: This is an obese white male in hospital scrubs with limited grooming and eye contact with a prominent jackson. No abnormal movements except for mild to extreme psychomotor agitation. Patient with significant pacing as well and he continues to touch his fingers repeatedly on his stomach while walking aimlessly through the hallway. Slightly more cooperative with exam. Speech was limited normal volume and less pressured. Mood described as I am fine. Affect was odd and irritable. Thought process was linear but very superficial. Thought contact: patient denies suicidal or homicidal ideation, There were prominent paranoid delusions appreciated. He remained guarded throughout the interview. Patient denied auditory and denied visual hallucinations but appeared to be responding to internal stimuli. Attention and concentration appeared intact and memory appeared unreliable but none were formally tested. Patient is alert and oriented times person and place and time. Insight, judgment and impulse control are all impaired. Vitals/I&O/Wt Last Vital Signs Temp 97.5 F L 10/04/24 06:00 Pulse 92 10/04/24 06:00 Resp 20 H 10/04/24 06:00 BP 149/90 10/04/24 06:00 Pulse Ox 96 10/04/24 06:00 O2 Del Method Room Air 10/04/24 06:00 10/03/24 10/04/24 10/04/24 22:59 06:59 14:59 Intake Total 240 / 240 Balance 240 / 240 Data NPU 08/25/24 16:28 08/25/24 16:28 A&P Assessment and plan (1) Schizophrenia, acute: (2) Psychotic disorder: (3) Depression: Plan This is a 39-year-old white male involuntarily hospitalized with decline in functioning at home with worsening psychosis currently on no medications at this time. He appears abstinent from illicit drugs and alcohol at this time. 1.? ? Encouraged individual, group and milieu therapy. ?2. ? We will attempt to gather collateral information from previous providers ?3. ? TO-15 minute checks on the unit. ?4. ? Recommend sober living treatment at the highest level of care to which the patient is willing to commit. 5. Patient received both IM 234mg, 156mg on 09/06/24 and 09/13/24 respectively. Still remains psychotic, Continue Latuda 40mg at 7Pm after dinner with Haldol 5mg IM if patient refuses oral supplementation. Increased Latuda to 60 mg at 7 PM. Invega injection due 10/11/2024 6. 90-day hold hearing was today but due to a technicality he was placed on another 21-day hold and we will need to file for a 90-day hold if he is still going to be here within the next 17 days which is what the statute actually says for that transition alone. Going from a 21 to a 90 day hold requires that a notice is filed within 17 days. Has not required when going from 90 days to 1 year which would be the next step. Involuntary Hold Information 2 96 Hour Hold: 96 Hour Involuntary Admission: Yes 96 Hour Hold Ending Date: 09/04/24 96 Hour Hold Ending Time: 16:30 Other Hold: Hold End Date: 09/27/27 Attestations NPU 2 Medical Necessity Statement*: Inpatient hospitalization is medically necessary and the clinically appropriate intervention at this time. We will monitor/initiate medications and make changes as indicated. Likely length of stay may be greater than 14 as guardianship/placement are managed. Coding Level of Care Code Acute Code for g Fwd Diagnoses Schizophrenia, acute F23 Psychotic disorder F29 Depression F32.A
[2024-10-04 14:00] VITALS: BP 164/89; PULSE 96; RESP 18; TEMP 36.4; O2SAT 93
[2024-10-04] MEDS: lurasidone 20 mg Tablet 60 MG PO (16:26)
[2024-10-04] MEDS: nicotine 4 mg lozenge MUCOUS MEM ×4 (16:59→22:14)
[2024-10-04 20:13] VITALS: BP 139/84; PULSE 92; RESP 20; TEMP 36.7; O2SAT 94
[2024-10-05] MEDS: nicotine 4 mg lozenge MUCOUS MEM ×9 (05:13→22:04)
[2024-10-05 06:00] VITALS: BP 156/82; PULSE 87; RESP 17; TEMP 36.4; O2SAT 96
[2024-10-05 14:00] VITALS: BP 97/58; PULSE 81; RESP 18; TEMP 36.3; O2SAT 97
[2024-10-05] MEDS: lurasidone 20 mg Tablet 60 MG PO (17:15)
[2024-10-05 20:25] VITALS: BP 122/84; PULSE 84; RESP 17; TEMP 37.1; O2SAT 97
--- NOTE | 2024-10-05 20:28 | P.NPUPN_ITS ---
Subjective NPU 2 Subjective: Patient presented today reporting that things are fine. He was initially hard to recognize per staff reports and direct observation as he completely shaved his jackson and mustache. He continues to pace and pad on his abdomen. He did not express any specific concerns but when asked how he was doing he did report I am here. Continues to report a desire not to be here and to have some independent housing but seems to except that he does not have a choice at this point. No reports of any side effects. Mental Status Exam 2 MSE Comments: This is an obese white male in hospital scrubs with limited grooming and eye contact looking quite different as he has shaved his jackson and mustache completely. No abnormal movements except for mild to extreme psychomotor agitation. Patient with significant pacing as well and he continues to touch his fingers repeatedly on his stomach while walking aimlessly through the hallway. Slightly more cooperative with exam. Speech was limited normal volume and less pressured. Mood described as I am fine. Affect was odd and irritable. Thought process was linear but very superficial. Thought contact: patient denies suicidal or homicidal ideation, There were prominent paranoid delusions appreciated. He remained guarded throughout the interview. Patient denied auditory and denied visual hallucinations but appeared to be responding to internal stimuli. Attention and concentration appeared intact and memory appeared unreliable but none were formally tested. Patient is alert and oriented times person and place and time. Insight, judgment and impulse control are all impaired. Vitals/I&O/Wt Last Vital Signs Temp 98.7 F 10/05/24 20:25 Pulse 84 10/05/24 20:25 Resp 17 10/05/24 20:25 BP 122/84 10/05/24 20:25 Pulse Ox 97 10/05/24 20:25 O2 Del Method Room Air 10/05/24 20:25 Data NPU 08/25/24 16:28 08/25/24 16:28 A&P Assessment and plan (1) Schizophrenia, acute: (2) Psychotic disorder: (3) Depression: Plan This is a 39-year-old white male involuntarily hospitalized with decline in functioning at home with worsening psychosis currently on no medications at this time. He appears abstinent from illicit drugs and alcohol at this time. 1.? ? Encouraged individual, group and milieu therapy. ?2. ? We will attempt to gather collateral information from previous providers ?3. ? TO-15 minute checks on the unit. ?4. ? Recommend sober living treatment at the highest level of care to which the patient is willing to commit. 5. Patient received both IM 234mg, 156mg on 09/06/24 and 09/13/24 respectively. Still remains psychotic, Continue Latuda 40mg at 7Pm after dinner with Haldol 5mg IM if patient refuses oral supplementation. Increased Latuda to 60 mg at 7 PM. Invega injection due 10/11/2024 6. 90-day hold hearing was today but due to a technicality he was placed on another 21-day hold and we will need to file for a 90-day hold if he is still going to be here within the next 17 days which is what the statute actually says for that transition alone. Going from a 21 to a 90 day hold requires that a notice is filed within 17 days. Has not required when going from 90 days to 1 year which would be the next step. Involuntary Hold Information 2 96 Hour Hold: 96 Hour Involuntary Admission: Yes 96 Hour Hold Ending Date: 09/04/24 96 Hour Hold Ending Time: 16:30 Other Hold: Hold End Date: 09/27/27 Attestations NPU 2 Medical Necessity Statement*: Inpatient hospitalization is medically necessary and the clinically appropriate intervention at this time. We will monitor/initiate medications and make changes as indicated. Likely length of stay may be greater than 14 as guardianship/placement are managed. Coding Level of Care Code Acute Code for g Fwd Diagnoses Schizophrenia, acute F23 Psychotic disorder F29 Depression F32.A
--- NOTE | 2024-10-05 21:07 | PC.NURSE ---
IN HALLWAY PACING AND TAPPING STOMACH. MORE INTERACTIVE WITH STAFF THIS SHIFT AND JOKING AROUND. DENIES PAIN. DENIES SI/HI AND AVH AT THIS TIME. DENIES HAVING ANXIETY AND DEPRESSION.
[2024-10-06] MEDS: nicotine 4 mg lozenge MUCOUS MEM ×8 (05:22→20:04)
[2024-10-06 05:36] VITALS: BP 144/93; PULSE 96; RESP 18; TEMP 36.3; O2SAT 94
[2024-10-06 14:00] VITALS: BP 143/82; PULSE 90; RESP 18; TEMP 36.4; O2SAT 95
[2024-10-06] MEDS: lurasidone 20 mg Tablet 60 MG PO (17:03)
--- NOTE | 2024-10-06 19:01 | P.NPUPN_ITS ---
Subjective NPU 2 Subjective: Patient presented today reporting that he is feeling okay. He continues to have some frustration about being here but has essentially accepted the process. He shaved his jackson the other day and now is wanting to cut his hair to make it appear little more reasonable. He denied any specific side effects to the medications or any other concerns. Mental Status Exam 2 MSE Comments: This is an obese white male in hospital scrubs with limited grooming and eye contact looking quite different as he has shaved his jackson and mustache completely. No abnormal movements except for mild to extreme psychomotor agitation. Patient with significant pacing as well and he continues to touch his fingers repeatedly on his stomach while walking aimlessly through the hallway. Slightly more cooperative with exam. Speech was limited normal volume and less pressured. Mood described as I am fine. Affect was odd and irritable. Thought process was linear but very superficial. Thought contact: patient denies suicidal or homicidal ideation, There were prominent paranoid delusions appreciated. He remained guarded throughout the interview. Patient denied auditory and denied visual hallucinations but appeared to be responding to internal stimuli. Attention and concentration appeared intact and memory appeared unreliable but none were formally tested. Patient is alert and oriented times person and place and time. Insight, judgment and impulse control are all impaired. Vitals/I&O/Wt Last Vital Signs Temp 97.6 F 10/06/24 14:00 Pulse 90 10/06/24 14:00 Resp 18 10/06/24 14:00 BP 143/82 10/06/24 14:00 Pulse Ox 95 10/06/24 14:00 O2 Del Method Room Air 10/06/24 05:36 Data NPU 08/25/24 16:28 08/25/24 16:28 A&P Assessment and plan (1) Schizophrenia, acute: (2) Psychotic disorder: (3) Depression: Plan This is a 39-year-old white male involuntarily hospitalized with decline in functioning at home with worsening psychosis currently on no medications at this time. He appears abstinent from illicit drugs and alcohol at this time. 1.? ? Encouraged individual, group and milieu therapy. ?2. ? We will attempt to gather collateral information from previous providers ?3. ? TO-15 minute checks on the unit. ?4. ? Recommend sober living treatment at the highest level of care to which the patient is willing to commit. 5. Patient received both IM 234mg, 156mg on 09/06/24 and 09/13/24 respectively. Still remains psychotic, Continue Latuda 40mg at 7Pm after dinner with Haldol 5mg IM if patient refuses oral supplementation. Increased Latuda to 60 mg at 7 PM. Invega injection due 10/11/2024 6. 90-day hold hearing was today but due to a technicality he was placed on another 21-day hold and we will need to file for a 90-day hold if he is still going to be here within the next 17 days which is what the statute actually says for that transition alone. Going from a 21 to a 90 day hold requires that a notice is filed within 17 days. Has not required when going from 90 days to 1 year which would be the next step. Involuntary Hold Information 2 96 Hour Hold: 96 Hour Involuntary Admission: Yes 96 Hour Hold Ending Date: 09/04/24 96 Hour Hold Ending Time: 16:30 Other Hold: Hold End Date: 09/27/27 Attestations NPU 2 Medical Necessity Statement*: Inpatient hospitalization is medically necessary and the clinically appropriate intervention at this time. We will monitor/initiate medications and make changes as indicated. Likely length of stay may be greater than 14 as guardianship/placement are managed. Coding Level of Care Code Acute Code for [facility] Fwd Diagnoses Schizophrenia, acute F23 Psychotic disorder F29 Depression F32.A
[2024-10-06 22:00] VITALS: BP 134/80; PULSE 83; RESP 18; TEMP 37.2; O2SAT 96
[2024-10-07] MEDS: nicotine 4 mg lozenge MUCOUS MEM ×7 (03:55→22:28)
[2024-10-07 06:00] VITALS: BP 128/80; PULSE 94; RESP 18; TEMP 36.4; O2SAT 96
--- NOTE | 2024-10-07 09:24 | PC.NURSE ---
DR. CASILLAS ORDERED A CONSULT FROM DR. RODRIGUEZ FOR POSSIBLE SPIDER BITE ON PTS RIGHT CALF AND PTS HEEL BEING CRACKED AND BLEEDING.
[2024-10-07 14:00] VITALS: BP 145/101; PULSE 111; RESP 18; TEMP 36.6; O2SAT 97
--- NOTE | 2024-10-07 15:33 | P.NPUPN_ITS ---
Subjective NPU 2 Subjective: Patient presented today reporting that he was doing fine. He continues to want to shave his hair some. Otherwise he reports that he is still here. He is open to medication but reports that he wants to leave soon as possible. He denied any side effects of the medication. We discussed the hospitalist coming to evaluate his sore on his leg today he was worried about. Mental Status Exam 2 MSE Comments: This is an obese white male in hospital scrubs with limited grooming and eye contact looking quite different as he has shaved his jackson and mustache completely. No abnormal movements except for mild to extreme psychomotor agitation. Patient with significant pacing as well and he continues to touch his fingers repeatedly on his stomach while walking aimlessly through the hallway. Slightly more cooperative with exam. Speech was limited normal volume and less pressured. Mood described as I am fine. Affect was odd and irritable. Thought process was linear but very superficial. Thought contact: patient denies suicidal or homicidal ideation, There were prominent paranoid delusions appreciated. He remained guarded throughout the interview. Patient denied auditory and denied visual hallucinations but appeared to be responding to internal stimuli. Attention and concentration appeared intact and memory appeared unreliable but none were formally tested. Patient is alert and oriented times person and place and time. Insight, judgment and impulse control are all impaired. Vitals/I&O/Wt Last Vital Signs Temp 97.6 F 10/07/24 06:00 Pulse 94 10/07/24 06:00 Resp 18 10/07/24 06:00 BP 128/80 10/07/24 06:00 Pulse Ox 96 10/07/24 06:00 O2 Del Method Room Air 10/06/24 05:36 Data NPU 08/25/24 16:28 08/25/24 16:28 A&P Assessment and plan (1) Schizophrenia, acute: (2) Psychotic disorder: (3) Depression: Plan This is a 39-year-old white male involuntarily hospitalized with decline in functioning at home with worsening psychosis currently on no medications at this time. He appears abstinent from illicit drugs and alcohol at this time. 1.? ? Encouraged individual, group and milieu therapy. ?2. ? We will attempt to gather collateral information from previous providers ?3. ? TO-15 minute checks on the unit. ?4. ? Recommend sober living treatment at the highest level of care to which the patient is willing to commit. 5. Patient received both IM 234mg, 156mg on 09/06/24 and 09/13/24 respectively. Still remains psychotic, Continue Latuda 40mg at 7Pm after dinner with Haldol 5mg IM if patient refuses oral supplementation. Increased Latuda to 60 mg at 7 PM. Invega injection due 10/11/2024 6. 90-day hold hearing was today but due to a technicality he was placed on another 21-day hold and we will need to file for a 90-day hold if he is still going to be here within the next 17 days which is what the statute actually says for that transition alone. Going from a 21 to a 90 day hold requires that a notice is filed within 17 days. Has not required when going from 90 days to 1 year which would be the next step. 7. Get hospitalist consult for lesion. We will await recommendations and follow-up as indicated. Involuntary Hold Information 2 96 Hour Hold: 96 Hour Involuntary Admission: Yes 96 Hour Hold Ending Date: 09/04/24 96 Hour Hold Ending Time: 16:30 Other Hold: Hold End Date: 09/27/27 Attestations NPU 2 Medical Necessity Statement*: Inpatient hospitalization is medically necessary and the clinically appropriate intervention at this time. We will monitor/initiate medications and make changes as indicated. Likely length of stay may be greater than 14 as guardianship/placement are managed. Coding Level of Care Code Acute Code for g Fwd Diagnoses Schizophrenia, acute F23 Psychotic disorder F29 Depression F32.A
[2024-10-07] MEDS: lurasidone 20 mg Tablet 60 MG PO (17:01)
[2024-10-07 22:00] VITALS: BP 122/64; PULSE 95; RESP 18; TEMP 37.4; O2SAT 98
--- NOTE | 2024-10-08 00:25 | P.CONIM_ITS ---
Providers/Reason For Consult 2 Consulting Physician/Specialty*: Hospitalist Reason for Consult*: Spider bite, heel ulcer Attending Physician: Damon Cuello MD Primary Care Provider: Ann-Marie Steven MD History of Present Illness History of Present Illness Adama Thompson is a 39 year old male with history of schizophrenia bipolar disorder, drug-induced psychosis, polysubstance abuse hospice was requested to evaluate the patient for spider bite right calf area. Patient is not endorsing any fever, nausea, vomiting or rigors. Patient is stating that he cannot take NSAIDs because of anaphylactic reaction in the past. At the time of evaluation patient was resting well, was able to squeeze around the wound which showed purulent drainage, wound was cleaned with alcohol swab, will request ultrasound to evaluate for abscess, he also has a dried eschar around his right heel which is chronic in nature which may need podiatry evaluation for debridement. Review of Systems 2 Const: Denies: fever(s) Eyes: Denies: change in vision ENMT: Denies: throat pain Medications/Allergies Home Medications Medication Instructions Recorded Confirmed Last Taken Type No Known Home Medications 08/25/24 08/25/24 Unknown History Allergies Allergy/AdvReac Type Severity Reaction Status Date / Time naproxen Allergy ALGY-Difficulty Verified 04/09/24 22:07 Breathing NSAIDS (Non-Steroidal Allergy ALGY-Anaphy Verified 04/09/24 22:07 Anti-Inflamma laxis zonisamide [From Zonegran] AdvReac ADR-Vomitin Verified 04/09/24 22:07 g Current Medications Generic Name Dose Route Start Last Admin Trade Name Freq PRN Reason Stop Dose Admin Acetaminophen 650 mg 08/25/24 20:56 10/03/24 01:15 Acetaminophen 325 Mg Tablet PO 650 mg Q4H PRN Administration MILD PAIN Calcium Carbonate 1,000 mg 09/24/24 03:46 09/24/24 04:05 Calcium Carbonate 500 Mg Chew Tablet PO 1,000 mg Q4H PRN Administration HEARTBURN Loperamide HCl 2 mg 08/25/24 20:56 09/25/24 03:07 Loperamide 2 Mg Capsule PO 2 mg Q6H PRN Administration DIARRHEA Lurasidone HCl 60 mg 10/02/24 17:00 10/07/24 17:01 Lurasidone 20 Mg Tablet PO 60 mg 1700 MAHESH Administration Nicotine Polacrilex 2 mg 08/25/24 20:56 10/04/24 15:41 Nicotine 2 Mg Gum BUCCAL 2 mg Q2H PRN Administration NICOTINE WITHDRAWAL Nicotine Polacrilex 4 mg 10/04/24 16:43 10/07/24 22:28 Nicotine 4 Mg Lozenge MUCOUS MEM 4 mg Q2H PRN Administration NICOTINE CRAVINGS PFSH Acute 2 PFSH: Medical History Lumbar disc disease Hyperlipidemia Shoulder pain Tooth infection OCD (obsessive compulsive disorder) Migraine headache with aura Erectile dysfunction Tadalafil prescribed September 2021. Lower urinary tract symptoms History of kidney stones Low testosterone in male Surgical History History of tonsillectomy and adenoidectomy Family History Father , at age 68 Alcoholic Mother Cancer BREAST CANCER Sister Cancer Other CAD (coronary artery disease) Diabetes Hypertension Social History Smoking and tobacco/nicotine status: current every day tobacco/nicotine user Alcohol intake: never Substance/Drug Use: unknown Adopted: No Caregiver/support person: No Marital status: Current occupational status: unemployed Vitals/I&O/Wt Last Vital Signs Temp 99.4 F 10/07/24 22:00 Pulse 95 10/07/24 22:00 Resp 18 10/07/24 22:00 BP 122/64 10/07/24 22:00 Pulse Ox 98 10/07/24 22:00 O2 Del Method Room Air 10/06/24 05:36 Physical Exam 2 Narrative: Right calf muscle without any tenderness Spider bite area with purulent drainage, cellulitis noticed around the wound Purulent drainage noted Erythema is around the spider bite which does not seem to be progressive at this point No streaking noted around the wound Dried chronic right heel wound with black eschar Euvolemic Morbid obese No active distress Currently on room air Hemodynamically stable Data 08/25/24 16:28 08/25/24 16:28 A&P Assessment and plan (1) Cellulitis: (2) Spider bite: (3) Nonhealing wound of heel: Plan Purulent cellulitis spider bite area Nonhealing wound of right heel Will add topical bacitracin along doxycycline p.o. regimen No need of IV antibiotic this point I would recommend podiatry evaluation for nonhealing right heel wound which may need bedside debridement versus Santyl dressing Repeat CBC in the morning Will request ultrasound right calf area to rule out underlying abscess Patient should take doxycycline for next 10 days 100 mg twice daily, keep the wound clean, add sterile dressing on daily basis Hypertension: Add low-dose losartan Avoid NSAIDs for anaphylactic reaction in the past Check A1c level Consult Attestations 2 Medical Necessity Statement: As per NPU Diagnoses Cellulitis L03.90 Spider bite T63.301A Nonhealing wound of heel S91.309A
[2024-10-08] MEDS: nicotine 4 mg lozenge MUCOUS MEM ×8 (05:34→21:57)
[2024-10-08 06:00] VITALS: BP 134/81; PULSE 96; RESP 18; TEMP 36.8; O2SAT 95
[2024-10-08 07:45] VITALS: BP 134/81
[2024-10-08] MEDS: doxycycline 100 mg Tablet PO ×2 (07:45→17:33)
[2024-10-08] MEDS: bacitracin ointment Pkt TOPICAL ×2 (07:45→21:03)
[2024-10-08] MEDS: losartan 50 mg Tablet 25 MG PO (07:45)
--- NOTE | 2024-10-08 08:06 | PC.NURSE ---
Dressing change This nurse cleaned the spider bite area, applied antibiotic ointment as ordered and covered with a 4X4. Patient tolerated well. The area is red in appearance. A small amount of sanguineous drainage.
[2024-10-08 09:37] LABS: Basophils % 0.4 %; Eosinophils # 0.1 10^3/uL (0.0-0.8); Eosinophils % 0.9 %; Hematocrit 45.2 % (37-53); Lymphocytes # 1.8 10^3/uL (0.8-4.8); Lymphocytes % 23.6 %; Mean Corpuscular HGB Conc 33.2 g/dL (30-55); Mean Corpuscular Hemoglobin 28.2 pg (27-33); Mean Corpuscular Volume 85.1 fl (82-101); Mean Platelet Volume 9.4 fL (7.4-10.4); Monocytes # 0.5 10^3/uL (0.2-0.9); Monocytes % 7.3 %; Neutrophils # 5.02 10^3/uL (1.8-7.7); Neutrophils % 67.5 %; Nucleated Red Blood Cells % 0 %; Platelet Count 217 10^3/cmm (157-399); Red Blood Count 5.31 10^6/uL (3.85-5.65); Red Cell Distribution Width 12.5 % (12.1-15.1); White Blood Count 7.43 10^3/uL (3.29-11.43)
[2024-10-08 09:55] LABS: Anion Gap 22.9 (5-19); Blood Urea Nitrogen 12 mg/dL (6-20); Calcium 8.8 mg/dL (8.5-10.5); Carbon Dioxide 27 mmol/L (22-29); Chloride 92 mmol/L (98-107); Creatinine Clr Calc Pharmacy 173.4404; Glomerular Filtration Rate 108.2 mL/min (90-130); Glucose 95 mg/dL (65-115); Osmolality Calculated 286 mOsm/kg (285-295); Potassium 3.9 mmol/L (3.5-5.1); Sodium 138 mmol/L (136-145)
[2024-10-08 09:56] LABS: C Reactive Protein 24.3 mg/L (0.0-4.9)
[2024-10-08 09:57] LABS: Estmated Average Glucose 108; Hemoglobin A1C 5.4 % (4.0-6.0)
[2024-10-08 10:02] LABS: Procalcitonin 0.22 ng/mL (0-0.5)
--- NOTE | 2024-10-08 10:33 | P.NPUPN_ITS ---
Subjective NPU 2 Subjective: Patient presented today reporting that he is doing okay. He is seeming to have a much more positive attitude per staff reports and direct observation. He reports that he does want to leave that he is having no irritability surrounding that desire. He endorses that the medication is working fine and he denies any side effects. Continues to await placement Mental Status Exam 2 MSE Comments: This is an obese white male in hospital scrubs with limited grooming and eye contact looking quite different as he has shaved his jackson and mustache completely. No abnormal movements except for mild to extreme psychomotor agitation. Patient with significant pacing as well and he continues to touch his fingers repeatedly on his stomach while walking aimlessly through the hallway. Slightly more cooperative with exam. Speech was limited normal volume and less pressured. Mood described as I am fine. Affect was odd and irritable. Thought process was linear but very superficial. Thought contact: patient denies suicidal or homicidal ideation, There were prominent paranoid delusions appreciated. He remained guarded throughout the interview. Patient denied auditory and denied visual hallucinations but appeared to be responding to internal stimuli. Attention and concentration appeared intact and memory appeared unreliable but none were formally tested. Patient is alert and oriented times person and place and time. Insight, judgment and impulse control are all impaired. Vitals/I&O/Wt Last Vital Signs Temp 98.3 F 10/08/24 06:00 Pulse 96 10/08/24 06:00 Resp 18 10/08/24 06:00 BP 134/81 10/08/24 07:45 Pulse Ox 95 10/08/24 06:00 O2 Del Method Room Air 10/06/24 05:36 Weight last 48 hrs Weight 128.457 kg Data NPU 10/08/24 09:27 10/08/24 09:27 A&P Assessment and plan (1) Cellulitis: (2) Spider bite: (3) Nonhealing wound of heel: (4) Schizophrenia, acute: (5) Psychotic disorder: (6) Depression: Plan This is a 39-year-old white male involuntarily hospitalized with decline in functioning at home with worsening psychosis currently on no medications at this time. He appears abstinent from illicit drugs and alcohol at this time. 1.? ? Encouraged individual, group and milieu therapy. ?2. ? We will attempt to gather collateral information from previous providers ?3. ? TO-15 minute checks on the unit. ?4. ? Recommend sober living treatment at the highest level of care to which the patient is willing to commit. 5. Patient received both IM 234mg, 156mg on 09/06/24 and 09/13/24 respectively. Still remains psychotic, Continue Latuda 40mg at 7Pm after dinner with Haldol 5mg IM if patient refuses oral supplementation. Increased Latuda to 60 mg at 7 PM. Invega injection due 10/11/2024 6. 90-day hold hearing was today but due to a technicality he was placed on another 21-day hold and we will need to file for a 90-day hold if he is still going to be here within the next 17 days which is what the statute actually says for that transition alone. Going from a 21 to a 90 day hold requires that a notice is filed within 17 days. Has not required when going from 90 days to 1 year which would be the next step. 7. Get hospitalist consult for lesion. We will await recommendations and follow-up as indicated. Involuntary Hold Information 2 96 Hour Hold: 96 Hour Involuntary Admission: Yes 96 Hour Hold Ending Date: 09/04/24 96 Hour Hold Ending Time: 16:30 Other Hold: Hold End Date: 09/27/27 Attestations NPU 2 Medical Necessity Statement*: Inpatient hospitalization is medically necessary and the clinically appropriate intervention at this time. We will monitor/initiate medications and make changes as indicated. Likely length of stay may be greater than 14 as guardianship/placement are managed. Coding Level of Care Code Acute Code for [facility] Diagnoses Cellulitis L03.90 Spider bite T63.301A Nonhealing wound of heel S91.309A Schizophrenia, acute F23 Psychotic disorder F29 Depression F32.A
[2024-10-08 14:00] VITALS: BP 125/78; PULSE 85; RESP 17; TEMP 36.7; O2SAT 95
[2024-10-08] MEDS: lurasidone 20 mg Tablet 60 MG PO (16:57)
[2024-10-08 19:54] VITALS: BP 134/84; PULSE 92; RESP 20; TEMP 36.4; O2SAT 96
[2024-10-09] MEDS: nicotine 4 mg lozenge MUCOUS MEM ×8 (04:10→20:36)
[2024-10-09 04:19] VITALS: BP 123/84; PULSE 98; RESP 18; TEMP 36.7; O2SAT 97
[2024-10-09] MEDS: doxycycline 100 mg Tablet PO ×2 (08:08→17:29)
[2024-10-09] MEDS: losartan 50 mg Tablet 25 MG PO (08:08)
[2024-10-09] MEDS: bacitracin ointment Pkt TOPICAL ×2 (08:09→20:36)
--- NOTE | 2024-10-09 13:45 | P.NPUPN_ITS ---
Subjective NPU 2 Subjective: Patient presented today reporting that he is doing all right. He continued to have significant improvement and have no signs of irritability per staff reports and direct observation. Continues to report a desire to leave as soon as is feasible but was having no problems or concerns on the unit. He denied any side effects to medication. Mental Status Exam 2 MSE Comments: This is an obese white male in hospital scrubs with limited grooming and eye contact looking quite different as he has shaved his jackson and mustache completely. No abnormal movements except for mild to extreme psychomotor agitation. Patient with significant pacing as well and he continues to touch his fingers repeatedly on his stomach while walking aimlessly through the hallway. Slightly more cooperative with exam. Speech was limited normal volume and less pressured. Mood described as I am fine. Affect was odd and irritable. Thought process was linear but very superficial. Thought contact: patient denies suicidal or homicidal ideation, There were prominent paranoid delusions appreciated. He remained guarded throughout the interview. Patient denied auditory and denied visual hallucinations but appeared to be responding to internal stimuli. Attention and concentration appeared intact and memory appeared unreliable but none were formally tested. Patient is alert and oriented times person and place and time. Insight, judgment and impulse control are all impaired. Vitals/I&O/Wt Last Vital Signs Temp 98.1 F 10/09/24 04:19 Pulse 98 10/09/24 04:19 Resp 18 10/09/24 04:19 BP 123/84 10/09/24 04:19 Pulse Ox 97 10/09/24 04:19 O2 Del Method Room Air 10/09/24 04:19 10/08/24 10/09/24 10/09/24 22:59 06:59 14:59 Intake Total 240 / 240 Balance 240 / 240 Weight last 48 hrs Weight 128.457 kg Data NPU 10/08/24 09:27 10/08/24 09:27 A&P Assessment and plan (1) Cellulitis: (2) Spider bite: (3) Nonhealing wound of heel: (4) Schizophrenia, acute: (5) Psychotic disorder: (6) Depression: Plan This is a 39-year-old white male involuntarily hospitalized with decline in functioning at home with worsening psychosis currently on no medications at this time. He appears abstinent from illicit drugs and alcohol at this time. 1.? ? Encouraged individual, group and milieu therapy. ?2. ? We will attempt to gather collateral information from previous providers ?3. ? TO-15 minute checks on the unit. ?4. ? Recommend sober living treatment at the highest level of care to which the patient is willing to commit. 5. Patient received both IM 234mg, 156mg on 09/06/24 and 09/13/24 respectively. Still remains psychotic, Continue Latuda 40mg at 7Pm after dinner with Haldol 5mg IM if patient refuses oral supplementation. Increased Latuda to 60 mg at 7 PM. Invega injection due 10/11/2024 6. 90-day hold hearing was today but due to a technicality he was placed on another 21-day hold and we will need to file for a 90-day hold if he is still going to be here within the next 17 days which is what the statute actually says for that transition alone. Going from a 21 to a 90 day hold requires that a notice is filed within 17 days. Has not required when going from 90 days to 1 year which would be the next step. 7. Get hospitalist consult for lesion. We will await recommendations and follow-up as indicated. Involuntary Hold Information 2 96 Hour Hold: 96 Hour Involuntary Admission: Yes 96 Hour Hold Ending Date: 09/04/24 96 Hour Hold Ending Time: 16:30 Other Hold: Hold End Date: 09/27/27 Attestations NPU 2 Medical Necessity Statement*: Inpatient hospitalization is medically necessary and the clinically appropriate intervention at this time. We will monitor/initiate medications and make changes as indicated. Likely length of stay may be greater than 14 as guardianship/placement are managed. Coding Level of Care Code Acute Code for [facility] Diagnoses Cellulitis L03.90 Spider bite T63.301A Nonhealing wound of heel S91.309A Schizophrenia, acute F23 Psychotic disorder F29 Depression F32.A
[2024-10-09 14:00] VITALS: BP 110/70; PULSE 85; RESP 18; TEMP 37.1; O2SAT 95
[2024-10-09] MEDS: lurasidone 20 mg Tablet 60 MG PO (17:29)
--- NOTE | 2024-10-09 17:39 | P.PN_ITS ---
Subjective 2 Subjective: No new complaints. Cellulitis is improving. No signs of an abscess. No purulence encountered. Medications: Reviewed: Yes Vitals/I&O/Wt Last Vital Signs Temp 98.8 F 10/09/24 14:00 Pulse 85 10/09/24 14:00 Resp 18 10/09/24 14:00 BP 110/70 10/09/24 14:00 Pulse Ox 95 10/09/24 14:00 O2 Del Method Room Air 10/09/24 04:19 Weight last 48 hrs Weight 128.457 kg Physical Exam 2 Narrative: General: No acute distress, AO x3 Small area of erythema and induration over the left medial calf. No purulence encountered. No fluctuance to suggest underlying abscess. Data 10/10/24 08:26 10/10/24 08:26 A&P Assessment and plan (1) Cellulitis: (2) Spider bite: (3) Nonhealing wound of heel: Plan Purulent cellulitis spider bite area Nonhealing wound of right heel Will add topical bacitracin along doxycycline p.o. regimen No need of IV antibiotic this point I would recommend podiatry evaluation for nonhealing right heel wound which may need bedside debridement versus Santyl dressing Repeat CBC in the morning Will request ultrasound right calf area to rule out underlying abscess Patient should take doxycycline for next 10 days 100 mg twice daily, keep the wound clean, add sterile dressing on daily basis Hypertension: Add low-dose losartan Avoid NSAIDs for anaphylactic reaction in the past Check A1c level October 10, 2024 Purulence is resolved. No signs of underlying abscess. No fluctuance. Cellulitis appears to be improving. There remains a small area of erythema and induration which is expected to resolve with current course of antibiotics. Continue local application of bacitracin and doxycycline 100 mg twice daily as prescribed. HbA1c at 5.4, not consistent with diabetes mellitus. Recommend to complete course of doxycycline as noted above. Please call us back should there be any worsening with his wound Attestations 2 Medical Necessity Statement*: per admitting Coding Level of Care Code Acute Code for [facility] Diagnoses Cellulitis L03.90 Spider bite T63.301A Nonhealing wound of heel S91.309A
[2024-10-09 19:34] VITALS: BP 133/83; PULSE 84; RESP 20; TEMP 36.6; O2SAT 96
[2024-10-10] MEDS: nicotine 4 mg lozenge MUCOUS MEM ×8 (00:05→22:00)
[2024-10-10 06:00] VITALS: BP 102/61; PULSE 86; RESP 20; TEMP 36.6; O2SAT 97
[2024-10-10] MEDS: doxycycline 100 mg Tablet PO ×2 (07:54→16:24)
[2024-10-10 08:38] LABS: Basophils # 0.1 10^3/uL (0.0-0.1); Basophils % 0.7 %; Eosinophils # 0.2 10^3/uL (0.0-0.8); Hematocrit 47.9 % (37-53); Lymphocytes # 3.3 10^3/uL (0.8-4.8); Lymphocytes % 40.6 %; Mean Corpuscular HGB Conc 32.4 g/dL (30-55); Mean Corpuscular Hemoglobin 28.5 pg (27-33); Mean Corpuscular Volume 88.2 fl (82-101); Mean Platelet Volume 9.5 fL (7.4-10.4); Monocytes % 12.8 %; Neutrophils # 3.44 10^3/uL (1.8-7.7); Neutrophils % 42.7 %; Nucleated Red Blood Cells % 0 %; Platelet Count 226 10^3/cmm (157-399); Red Blood Count 5.43 10^6/uL (3.85-5.65); Red Cell Distribution Width 12.8 % (12.1-15.1); White Blood Count 8.06 10^3/uL (3.29-11.43)
[2024-10-10 09:01] LABS: Alanine Aminotransferase 20 U/L (0-41); Albumin Level 4.3 g/dL (3.5-5.2); Alkaline Phosphatase 69 U/L (40-130); Aspartate Amino Transferase 14 U/L (0-40); Blood Urea Nitrogen 9 mg/dL (6-20); Calcium 9.4 mg/dL (8.5-10.5); Carbon Dioxide 28 mmol/L (22-29); Chloride 102 mmol/L (98-107); Creatinine Clr Calc Pharmacy 198.2176; Globulin 3.4 g/dL (1.3-4.6); Glomerular Filtration Rate 126.2 mL/min (90-130); Glucose 93 mg/dL (65-115); Osmolality Calculated 286 mOsm/kg (285-295); Sodium 139 mmol/L (136-145); Total Bilirubin 0.3 mg/dL (0.15-1.2); Total Protein 7.7 g/dL (6.6-8.7)
[2024-10-10 09:05] VITALS: BP 102/61
[2024-10-10] MEDS: losartan 50 mg Tablet 25 MG PO (09:05)
[2024-10-10] MEDS: bacitracin ointment Pkt TOPICAL ×2 (09:07→15:13)
[2024-10-10 14:00] VITALS: BP 124/84; PULSE 90; RESP 18; TEMP 36.8; O2SAT 96
[2024-10-10] MEDS: lurasidone 20 mg Tablet 60 MG PO (16:24)
--- NOTE | 2024-10-10 17:07 | P.NPUPN_ITS ---
Subjective NPU 2 Subjective: Patient presented today reporting that he is doing fine. He continues to be more positive and engaging per staff reports and direct observation. We discussed the fact that his first monthly injection is due tomorrow. He denied any side effects of his medications. Mental Status Exam 2 MSE Comments: This is an obese white male in hospital scrubs with limited grooming and eye contact looking quite different as he has shaved his jackson and mustache completely. No abnormal movements except for mild to extreme psychomotor agitation. Patient with significant pacing as well and he continues to touch his fingers repeatedly on his stomach while walking aimlessly through the hallway. Slightly more cooperative with exam. Speech was limited normal volume and less pressured. Mood described as I am fine. Affect was odd and irritable. Thought process was linear but very superficial. Thought contact: patient denies suicidal or homicidal ideation, There were prominent paranoid delusions appreciated. He remained guarded throughout the interview. Patient denied auditory and denied visual hallucinations but appeared to be responding to internal stimuli. Attention and concentration appeared intact and memory appeared unreliable but none were formally tested. Patient is alert and oriented times person and place and time. Insight, judgment and impulse control are all impaired. Vitals/I&O/Wt Last Vital Signs Temp 98.3 F 10/10/24 14:00 Pulse 90 10/10/24 14:00 Resp 18 10/10/24 14:00 BP 124/84 10/10/24 14:00 Pulse Ox 96 10/10/24 14:00 O2 Del Method Room Air 10/10/24 06:00 Data NPU 10/10/24 08:26 10/10/24 08:26 A&P Assessment and plan (1) Cellulitis: (2) Spider bite: (3) Nonhealing wound of heel: (4) Schizophrenia, acute: (5) Psychotic disorder: (6) Depression: Plan This is a 39-year-old white male involuntarily hospitalized with decline in functioning at home with worsening psychosis currently on no medications at this time. He appears abstinent from illicit drugs and alcohol at this time. 1.? ? Encouraged individual, group and milieu therapy. ?2. ? We will attempt to gather collateral information from previous providers ?3. ? TO-15 minute checks on the unit. ?4. ? Recommend sober living treatment at the highest level of care to which the patient is willing to commit. 5. Patient received both IM 234mg, 156mg on 09/06/24 and 09/13/24 respectively. Still remains psychotic, Continue Latuda 40mg at 7Pm after dinner with Haldol 5mg IM if patient refuses oral supplementation. Increased Latuda to 60 mg at 7 PM. Invega injection due 10/11/2024. 6. 90-day hold hearing was today but due to a technicality he was placed on another 21-day hold and we will need to file for a 90-day hold if he is still going to be here within the next 17 days which is what the statute actually says for that transition alone. Going from a 21 to a 90 day hold requires that a notice is filed within 17 days. Has not required when going from 90 days to 1 year which would be the next step. 7. Appreciate hospitalist consult and will follow recommendations as indicated. Involuntary Hold Information 2 96 Hour Hold: 96 Hour Involuntary Admission: Yes 96 Hour Hold Ending Date: 09/04/24 96 Hour Hold Ending Time: 16:30 Other Hold: Hold End Date: 09/27/27 Attestations NPU 2 Medical Necessity Statement*: Inpatient hospitalization is medically necessary and the clinically appropriate intervention at this time. We will monitor/initiate medications and make changes as indicated. Likely length of stay may be greater than 14 as guardianship/placement are managed. Coding Level of Care Code Acute Code for [facility] Diagnoses Cellulitis L03.90 Spider bite T63.301A Nonhealing wound of heel S91.309A Schizophrenia, acute F23 Psychotic disorder F29 Depression F32.A
[2024-10-10 20:09] VITALS: BP 132/78; PULSE 86; RESP 18; TEMP 36.3; O2SAT 92
[2024-10-11] MEDS: nicotine 4 mg lozenge MUCOUS MEM ×9 (03:05→19:59)
[2024-10-11 06:15] VITALS: BP 102/62; PULSE 68; RESP 16; TEMP 36.8; O2SAT 96
--- NOTE | 2024-10-11 08:06 | W.PM.NPUPNS ---
Subjective NPU Subjective: Patient presented today reporting that he is doing fine. He continues to be positive and engaging per staff reports and direct observation. We discussed the fact that his first monthly injection is due. He denied any side effects of his medications. Mental Status Exam MSE Comments: This is an obese white male in hospital scrubs with limited grooming and eye contact looking quite different as he has shaved his jackson and mustache completely. No abnormal movements except for mild to extreme psychomotor agitation. Patient with significant pacing as well and he continues to touch his fingers repeatedly on his stomach while walking aimlessly through the hallway. Slightly more cooperative with exam. Speech was limited normal volume and less pressured. Mood described as I am fine. Affect was odd and irritable. Thought process was linear but very superficial. Thought contact: patient denies suicidal or homicidal ideation, There were prominent paranoid delusions appreciated. He remained guarded throughout the interview. Patient denied auditory and denied visual hallucinations but appeared to be responding to internal stimuli. Attention and concentration appeared intact and memory appeared unreliable but none were formally tested. Patient is alert and oriented times person and place and time. Insight, judgment and impulse control are all impaired. Vitals/I&O/Wt Last Vital Signs Temp 97.3 F L 10/11/24 14:00 Pulse 93 10/11/24 14:00 Resp 17 10/11/24 14:00 BP 141/92 10/11/24 14:00 Pulse Ox 99 10/11/24 14:00 O2 Del Method Room Air 10/11/24 14:00 Data NPU 10/11/24 08:13 10/11/24 08:13 A&P Assessment and plan (1) Cellulitis: (2) Spider bite: (3) Nonhealing wound of heel: (4) Schizophrenia, acute: (5) Psychotic disorder: (6) Depression: Plan This is a 39-year-old white male involuntarily hospitalized with decline in functioning at home with worsening psychosis currently on no medications at this time. He appears abstinent from illicit drugs and alcohol at this time. 1.? ? Encouraged individual, group and milieu therapy. ?2. ? We will attempt to gather collateral information from previous providers ?3. ? TO-15 minute checks on the unit. ?4. ? Recommend sober living treatment at the highest level of care to which the patient is willing to commit. 5. Patient received both IM 234mg, 156mg on 09/06/24 and 09/13/24 respectively. Still remains psychotic, Continue Latuda 40mg at 7Pm after dinner with Haldol 5mg IM if patient refuses oral supplementation. Increased Latuda to 60 mg at 7 PM. Invega injection due 10/11/2024. 6. 90-day hold hearing was today but due to a technicality he was placed on another 21-day hold and we will need to file for a 90-day hold if he is still going to be here within the next 17 days which is what the statute actually says for that transition alone. Going from a 21 to a 90 day hold requires that a notice is filed within 17 days. Has not required when going from 90 days to 1 year which would be the next step. 7. Appreciate hospitalist consult and will follow recommendations as indicated. Involuntary Hold Information 96 Hour Hold: 96 Hour Involuntary Admission: Yes 96 Hour Hold Ending Date: 09/04/24 96 Hour Hold Ending Time: 16:30 Other Hold: Hold End Date: 09/27/27 Attestations NPU Medical Necessity Statement*: Inpatient hospitalization is medically necessary and the clinically appropriate intervention at this time. We will monitor/initiate medications and make changes as indicated. Likely length of stay may be greater than 14 as guardianship/placement are managed. Coding Level of Care Code Acute Code for [facility] Diagnoses Cellulitis L03.90 Spider bite T63.301A Nonhealing wound of heel S91.309A Schizophrenia, acute F23 Psychotic disorder F29 Depression F32.A
[2024-10-11 08:37] LABS: Basophils % 0.6 %; Eosinophils # 0.2 10^3/uL (0.0-0.8); Eosinophils % 2.7 %; Hematocrit 44.9 % (37-53); Lymphocytes # 3.1 10^3/uL (0.8-4.8); Lymphocytes % 44.9 %; Mean Corpuscular HGB Conc 32.1 g/dL (30-55); Mean Corpuscular Hemoglobin 28.3 pg (27-33); Mean Corpuscular Volume 88.4 fl (82-101); Mean Platelet Volume 9.6 fL (7.4-10.4); Monocytes # 0.6 10^3/uL (0.2-0.9); Monocytes % 8.8 %; Neutrophils # 2.96 10^3/uL (1.8-7.7); Neutrophils % 42.7 %; Nucleated Red Blood Cells % 0 %; Platelet Count 230 10^3/cmm (157-399); Red Blood Count 5.08 10^6/uL (3.85-5.65); Red Cell Distribution Width 12.6 % (12.1-15.1); White Blood Count 6.93 10^3/uL (3.29-11.43)
[2024-10-11 08:41] VITALS: BP 112/68
[2024-10-11] MEDS: losartan 50 mg Tablet 25 MG PO (08:41)
[2024-10-11] MEDS: bacitracin ointment Pkt TOPICAL ×3 (08:44→19:59)
[2024-10-11] MEDS: doxycycline 100 mg Tablet PO ×2 (08:44→17:31)
[2024-10-11 08:55] LABS: Alanine Aminotransferase 18 U/L (0-41); Alkaline Phosphatase 60 U/L (40-130); Anion Gap 12.2 (5-19); Aspartate Amino Transferase 12 U/L (0-40); Blood Urea Nitrogen 9 mg/dL (6-20); Calcium 9.3 mg/dL (8.5-10.5); Carbon Dioxide 28 mmol/L (22-29); Chloride 103 mmol/L (98-107); Creatinine Clr Calc Pharmacy 198.2176; Glomerular Filtration Rate 126.2 mL/min (90-130); Glucose 95 mg/dL (65-115); Osmolality Calculated 286 mOsm/kg (285-295); Potassium 4.2 mmol/L (3.5-5.1); Sodium 139 mmol/L (136-145); Total Bilirubin 0.3 mg/dL (0.15-1.2)
[2024-10-11 14:00] VITALS: BP 141/92; PULSE 93; RESP 17; TEMP 36.3; O2SAT 99
[2024-10-11] MEDS: lurasidone 20 mg Tablet 60 MG PO (17:31)
[2024-10-11 20:09] VITALS: BP 132/83; PULSE 95; RESP 18; O2SAT 93
[2024-10-12] MEDS: nicotine 4 mg lozenge MUCOUS MEM ×9 (02:50→20:27)
[2024-10-12 06:15] VITALS: BP 158/85; PULSE 84; RESP 18; TEMP 36.6; O2SAT 97
[2024-10-12 08:30] VITALS: BP 158/85
[2024-10-12] MEDS: doxycycline 100 mg Tablet PO ×2 (08:30→17:57)
[2024-10-12] MEDS: losartan 50 mg Tablet 25 MG PO (08:30)
[2024-10-12] MEDS: bacitracin ointment Pkt TOPICAL ×3 (08:30→21:34)
[2024-10-12] MEDS: paliperidone palmitate 156 mg Syringe IM (10:15)
--- NOTE | 2024-10-12 13:46 | PC.NURSE ---
ORDERS RECEIVED FROM DR. CASILLAS TO CONSULT PODIATRY, DR. WOOD FOR NON HEALING WOUND TO RIGHT HEEL. DR. DAMICO OFFICE CONTACTED AND INFORMATION LEFT FOR CONSULT. PT EDUCATED ON NEW ORDERS. VERBALIZED UNDERSTANDING.
[2024-10-12 14:00] VITALS: BP 115/65; PULSE 114; RESP 16; TEMP 36.6; O2SAT 96
--- NOTE | 2024-10-12 16:18 | W.PM.NPUPNS ---
Subjective NPU Subjective: Patient presented today reporting that things are going fine. Staff reports significant improvement and him patient. As noted on direct observation. He continues to be pleasant in conversation and denying any major issues and understanding the process and just awaiting placement. He denied any side effects to his medications. Mental Status Exam MSE Comments: This is an obese white male in hospital scrubs with limited grooming and eye contact looking quite different as he has shaved his jackson and mustache completely. No abnormal movements except for mild to extreme psychomotor agitation. Patient with significant pacing as well and he continues to touch his fingers repeatedly on his stomach while walking aimlessly through the hallway. More cooperative with exam. Speech was limited normal volume and less pressured. Mood described as better. Affect was Congruent and less odd. Thought process was linear but very superficial. Thought contact: patient denies suicidal or homicidal ideation, There were prominent paranoid delusions appreciated. He remained guarded throughout the interview. Patient denied auditory and denied visual hallucinations but appeared to be responding to internal stimuli. Attention and concentration appeared intact and memory appeared unreliable but none were formally tested. Patient is alert and oriented times person and place and time. Insight, judgment and impulse control are all impaired. Vitals/I&O/Wt Last Vital Signs Temp 98 F 10/12/24 14:00 Pulse 114 H 10/12/24 14:00 Resp 16 10/12/24 14:00 BP 115/65 10/12/24 14:00 Pulse Ox 96 10/12/24 14:00 O2 Del Method Room Air 10/12/24 14:00 Data NPU 10/11/24 08:13 10/11/24 08:13 A&P Assessment and plan (1) Cellulitis: (2) Spider bite: (3) Nonhealing wound of heel: (4) Schizophrenia, acute: (5) Psychotic disorder: (6) Depression: Plan This is a 39-year-old white male involuntarily hospitalized with decline in functioning at home with worsening psychosis currently on no medications at this time. He appears abstinent from illicit drugs and alcohol at this time. 1.? ? Encouraged individual, group and milieu therapy. ?2. ? We will attempt to gather collateral information from previous providers ?3. ? TO-15 minute checks on the unit. ?4. ? Recommend sober living treatment at the highest level of care to which the patient is willing to commit. 5. Patient received both IM 234mg, 156mg on 09/06/24 and 09/13/24 respectively. Still remains psychotic, Continue Latuda 40mg at 7Pm after dinner with Haldol 5mg IM if patient refuses oral supplementation. Increased Latuda to 60 mg at 7 PM. Invega injection due 10/11/2024. Invega injection given next injection due 11/10/2024. 6. 90-day hold hearing was today but due to a technicality he was placed on another 21-day hold and we will need to file for a 90-day hold if he is still going to be here within the next 17 days which is what the statute actually says for that transition alone. Going from a 21 to a 90 day hold requires that a notice is filed within 17 days. Has not required when going from 90 days to 1 year which would be the next step. 7. Appreciate hospitalist consult and will follow recommendations as indicated. Involuntary Hold Information 96 Hour Hold: 96 Hour Involuntary Admission: Yes 96 Hour Hold Ending Date: 09/04/24 96 Hour Hold Ending Time: 16:30 Other Hold: Hold End Date: 09/27/27 Attestations NPU Medical Necessity Statement*: Inpatient hospitalization is medically necessary and the clinically appropriate intervention at this time. We will monitor/initiate medications and make changes as indicated. Likely length of stay may be greater than 14 as guardianship/placement are managed. Coding Level of Care Code Acute Code for [facility] Fwd Diagnoses Cellulitis L03.90 Spider bite T63.301A Nonhealing wound of heel S91.309A Schizophrenia, acute F23 Psychotic disorder F29 Depression F32.A
[2024-10-12] MEDS: lurasidone 20 mg Tablet 60 MG PO (17:57)
[2024-10-12 20:54] VITALS: BP 109/63; PULSE 84; RESP 16; TEMP 36.7; O2SAT 96
[2024-10-13] MEDS: nicotine 4 mg lozenge MUCOUS MEM ×9 (03:42→20:24)
[2024-10-13 06:15] VITALS: BP 117/74; PULSE 88; RESP 19; TEMP 36.4; O2SAT 97
[2024-10-13 08:08] VITALS: BP 117/74
[2024-10-13] MEDS: doxycycline 100 mg Tablet PO (08:08)
[2024-10-13] MEDS: losartan 50 mg Tablet 25 MG PO (08:08)
--- NOTE | 2024-10-13 11:17 | P.CONIM_ITS ---
Providers/Reason For Consult 2 Consulting Physician/Specialty*: Dr. Hector Uribe, [place].P.M./podiatry Reason for Consult*: Right heel wound Attending Physician: Damon Cuello MD Primary Care Provider: Ann-Marie Steven MD History of Present Illness History of Present Illness Adama Thompson is a 39 year old male who was admitted to Neuropsych Unit on 08/25/2024 for acute psychosis. Patient was recently found to have a crack in the bottom of his right heel due to dryness. Patient states that he received his hep C injection which subsequently caused his heels to crack. Patient is also concerned that he stepped on glass on his right foot prior to admission. Podiatry was consulted to evaluate and provide further treatment recommendations. Review of Systems 2 General: Reports: 10 or more systems reviewed and unremarkable except in HPI and below Const: Denies: fever(s), chills, body aches or change in appetite Eyes: Denies: change in vision or blurry vision Card: Denies: chest pain, palpitations or irregular heart rhythm Resp: Denies: dyspnea GI: Denies: abdominal pain, nausea, vomiting or diarrhea Musc: Reports: joint stiffness Skin/Breast: Reports: non-healing lesions and lesions Medications/Allergies Home Medications Medication Instructions Recorded Confirmed Last Taken Type No Known Home Medications 08/25/24 08/25/24 Unknown History Allergies Allergy/AdvReac Type Severity Reaction Status Date / Time naproxen Allergy ALGY-Difficulty Verified 04/09/24 22:07 Breathing NSAIDS (Non-Steroidal Allergy ALGY-Anaphy Verified 04/09/24 22:07 Anti-Inflamma laxis zonisamide [From Zonegran] AdvReac ADR-Vomitin Verified 04/09/24 22:07 g Current Medications Generic Name Dose Route Start Last Admin Trade Name Freq PRN Reason Stop Dose Admin Acetaminophen 650 mg 08/25/24 20:56 10/03/24 01:15 Acetaminophen 325 Mg Tablet PO 650 mg Q4H PRN Administration MILD PAIN Bacitracin 0 each 10/08/24 09:00 10/13/24 08:09 Bacitracin Ointment Pkt TOPICAL Not Given TID MAHESH Protocol Calcium Carbonate 1,000 mg 09/24/24 03:46 09/24/24 04:05 Calcium Carbonate 500 Mg Chew Tablet PO 1,000 mg Q4H PRN Administration HEARTBURN Loperamide HCl 2 mg 08/25/24 20:56 09/25/24 03:07 Loperamide 2 Mg Capsule PO 2 mg Q6H PRN Administration DIARRHEA Losartan Potassium 25 mg 10/08/24 09:00 10/13/24 08:08 Losartan 50 Mg Tablet PO 25 mg DAILY MAHESH Administration Lurasidone HCl 60 mg 10/02/24 17:00 10/12/24 17:57 Lurasidone 20 Mg Tablet PO 60 mg 1700 MAHESH Administration Nicotine Polacrilex 2 mg 08/25/24 20:56 10/04/24 15:41 Nicotine 2 Mg Gum BUCCAL 2 mg Q2H PRN Administration NICOTINE WITHDRAWAL Nicotine Polacrilex 4 mg 10/04/24 16:43 10/13/24 10:13 Nicotine 4 Mg Lozenge MUCOUS MEM 4 mg Q2H PRN Administration NICOTINE CRAVINGS PFSH Acute 2 PFSH: Medical History Lumbar disc disease Hyperlipidemia Shoulder pain Tooth infection OCD (obsessive compulsive disorder) Migraine headache with aura Erectile dysfunction Tadalafil prescribed September 2021. Lower urinary tract symptoms History of kidney stones Low testosterone in male Surgical History History of tonsillectomy and adenoidectomy Family History Father , at age 68 Alcoholic Mother Cancer BREAST CANCER Sister Cancer Other CAD (coronary artery disease) Diabetes Hypertension Social History Smoking and tobacco/nicotine status: current every day tobacco/nicotine user Alcohol intake: never Substance/Drug Use: unknown Adopted: No Caregiver/support person: No Marital status: Current occupational status: unemployed Vitals/I&O/Wt Last Vital Signs Temp 97.6 F 10/13/24 06:15 Pulse 88 10/13/24 06:15 Resp 19 H 10/13/24 06:15 BP 117/74 10/13/24 08:08 Pulse Ox 97 10/13/24 06:15 O2 Del Method Room Air 10/12/24 14:00 Physical Exam 2 Narrative: BELOW IS A FOCUSED LOWER EXTREMITY EXAM GENERAL: A&O x 3 VASCULAR: DP/PT pulses palpable 2/4 with CFT intact, <3seconds to distal digits DERMATOLOGICAL: Skin turgor and temperature is within normal limits. No interdigital maceration noted. Hyperkeratotic tissue buildup plantar right heel with deep fissuring and dry heme. No active drainage no underlying fluctuance or signs of deep space abscess. MUSCULOSKELETAL: Mild tenderness with palpation of right foot fourth metatarsal region plantarly. Mild tenderness palpation of right heel hyperkeratotic tissue buildup NEUROLOGICAL: Neurological sensation to the affected foot and ankle is present through L4-S1 dermatomes with no hyper/hypoesthesias, negative Tinel or Valleix's sign Data 10/11/24 08:13 10/11/24 08:13 A&P Assessment and plan (1) Nonhealing wound of heel: Plan Patient was seen and evaluated in the Neuropsych Unit. Patient has hyperkeratotic tissue buildup to plantar heel which is causing deep fissure formation and minimal bleeding. Mainstay treatment will need to be moisturizing of the affected area. Ammonium lactate to be applied to cracked heels twice daily. No surgical intervention warranted at this time. I do believe the patient would benefit from outpatient podiatry care. Recommend follow-up with podiatry within 1 week of discharge. Coding Level of Care Code Acute Code for [facility] Diagnoses Nonhealing wound of heel S91.309A
[2024-10-13] MEDS: ammonium lactate lotion 226 gm Btl 1 APPLIC TOPICAL (13:22)
[2024-10-13 14:00] VITALS: BP 103/61; PULSE 100; RESP 16; TEMP 36.5; O2SAT 98
[2024-10-13] MEDS: bacitracin ointment Pkt TOPICAL ×2 (15:26→21:12)
[2024-10-13] MEDS: lurasidone 20 mg Tablet 60 MG PO (17:11)
--- NOTE | 2024-10-13 18:17 | P.NPUPN_ITS ---
Subjective NPU 2 Subjective: Patient presented today reporting that things are going fine. 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 Ultimately he endorsed that he was feeling better and he is awaiting the placement process. He denied any side effects to the medications. Mental Status Exam 2 MSE Comments: This is an obese white male in hospital scrubs with limited grooming and eye contact looking quite different as he has shaved his jackson and mustache completely. No abnormal movements except for mild to extreme psychomotor agitation. Patient with significant pacing as well and he continues to touch his fingers repeatedly on his stomach while walking aimlessly through the hallway. More cooperative with exam. Speech was limited normal volume and less pressured. Mood described as better. Affect was Congruent and less odd. Thought process was linear but very superficial. Thought contact: patient denies suicidal or homicidal ideation, There were prominent paranoid delusions appreciated. He remained guarded throughout the interview. Patient denied auditory and denied visual hallucinations but appeared to be responding to internal stimuli. Attention and concentration appeared intact and memory appeared unreliable but none were formally tested. Patient is alert and oriented times person and place and time. Insight, judgment and impulse control are all impaired. Vitals/I&O/Wt Last Vital Signs Temp 97.7 F 10/13/24 14:00 Pulse 100 10/13/24 14:00 Resp 16 10/13/24 14:00 BP 103/61 10/13/24 14:00 Pulse Ox 98 10/13/24 14:00 O2 Del Method Room Air 10/13/24 14:00 Data NPU 10/11/24 08:13 10/11/24 08:13 A&P Assessment and plan (1) Nonhealing wound of heel: (2) Cellulitis: (3) Spider bite: (4) Schizophrenia, acute: (5) Psychotic disorder: (6) Depression: Plan This is a 39-year-old white male involuntarily hospitalized with decline in functioning at home with worsening psychosis currently on no medications at this time. He appears abstinent from illicit drugs and alcohol at this time. 1.? ? Encouraged individual, group and milieu therapy. ?2. ? We will attempt to gather collateral information from previous providers ?3. ? TO-15 minute checks on the unit. ?4. ? Recommend sober living treatment at the highest level of care to which the patient is willing to commit. 5. Patient received both IM 234mg, 156mg on 09/06/24 and 09/13/24 respectively. Still remains psychotic, Continue Latuda 40mg at 7Pm after dinner with Haldol 5mg IM if patient refuses oral supplementation. Increased Latuda to 60 mg at 7 PM. Invega injection due 10/11/2024. Invega injection given next injection due 11/10/2024. 6. 90-day hold hearing was today but due to a technicality he was placed on another 21-day hold and we will need to file for a 90-day hold if he is still going to be here within the next 17 days which is what the statute actually says for that transition alone. Going from a 21 to a 90 day hold requires that a notice is filed within 17 days. Has not required when going from 90 days to 1 year which would be the next step. 7. Appreciate hospitalist consult and will follow recommendations as indicated. 8. Involuntary Hold Information 2 96 Hour Hold: 96 Hour Involuntary Admission: Yes 96 Hour Hold Ending Date: 09/04/24 96 Hour Hold Ending Time: 16:30 Other Hold: Hold End Date: 09/27/27 Attestations NPU 2 Medical Necessity Statement*: Inpatient hospitalization is medically necessary and the clinically appropriate intervention at this time. We will monitor/initiate medications and make changes as indicated. Likely length of stay may be greater than 14 as guardianship/placement are managed. Coding Level of Care Code Acute Code for [facility] Fwd Diagnoses Nonhealing wound of heel S91.309A Cellulitis L03.90 Spider bite T63.301A Schizophrenia, acute F23 Psychotic disorder F29 Depression F32.A
[2024-10-13 22:00] VITALS: BP 152/83; PULSE 89; RESP 18; TEMP 37.2; O2SAT 97
[2024-10-14] MEDS: nicotine 4 mg lozenge MUCOUS MEM ×9 (04:11→20:15)
[2024-10-14 06:00] VITALS: BP 108/77; PULSE 85; RESP 18; TEMP 36.6; O2SAT 97
[2024-10-14] MEDS: bacitracin ointment Pkt TOPICAL ×3 (07:41→21:00)
[2024-10-14 07:42] VITALS: BP 108/77
[2024-10-14] MEDS: losartan 50 mg Tablet 25 MG PO (07:42)
[2024-10-14] MEDS: ammonium lactate lotion 226 gm Btl 1 APPLIC TOPICAL ×2 (13:26→17:34)
[2024-10-14 14:00] VITALS: BP 132/81; PULSE 91; RESP 18; TEMP 36.4; O2SAT 99
[2024-10-14] MEDS: lurasidone 20 mg Tablet 60 MG PO (17:33)
--- NOTE | 2024-10-14 19:37 | P.NPUPN_ITS ---
Subjective NPU 2 Subjective: Patient presented today reporting that things are going well. He continues to be positive per staff reports and direct observation. He continued to have abdominal patting loud enough to hear per staff reports and direct observation. He denied any side effects to medication. Mental Status Exam 2 MSE Comments: This is an obese white male in hospital scrubs with limited grooming and eye contact looking quite different as he has shaved his jackson and mustache completely. No abnormal movements except for mild to extreme psychomotor agitation. Patient with significant pacing as well and he continues to touch his fingers repeatedly on his stomach while walking aimlessly through the hallway. More cooperative with exam. Speech was limited normal volume and less pressured. Mood described as better. Affect was Congruent and less odd. Thought process was linear but very superficial. Thought contact: patient denies suicidal or homicidal ideation, There were prominent paranoid delusions appreciated. He remained guarded throughout the interview. Patient denied auditory and denied visual hallucinations but appeared to be responding to internal stimuli. Attention and concentration appeared intact and memory appeared unreliable but none were formally tested. Patient is alert and oriented times person and place and time. Insight, judgment and impulse control are all impaired. Vitals/I&O/Wt Last Vital Signs Temp 97.6 F 10/14/24 14:00 Pulse 91 10/14/24 14:00 Resp 18 10/14/24 14:00 BP 132/81 10/14/24 14:00 Pulse Ox 99 10/14/24 14:00 O2 Del Method Room Air 10/14/24 14:00 10/14/24 10/14/24 10/14/24 06:59 14:59 22:59 Intake Total 380 / 380 380 / 760 Balance 380 / 380 380 / 760 Data NPU 10/11/24 08:13 10/11/24 08:13 A&P Assessment and plan (1) Nonhealing wound of heel: (2) Cellulitis: (3) Spider bite: (4) Schizophrenia, acute: (5) Psychotic disorder: (6) Depression: Plan This is a 39-year-old white male involuntarily hospitalized with decline in functioning at home with worsening psychosis currently on no medications at this time. He appears abstinent from illicit drugs and alcohol at this time. 1.? ? Encouraged individual, group and milieu therapy. ?2. ? We will attempt to gather collateral information from previous providers ?3. ? TO-15 minute checks on the unit. ?4. ? Recommend sober living treatment at the highest level of care to which the patient is willing to commit. 5. Patient received both IM 234mg, 156mg on 09/06/24 and 09/13/24 respectively. Still remains psychotic, Continue Latuda 40mg at 7Pm after dinner with Haldol 5mg IM if patient refuses oral supplementation. Increased Latuda to 60 mg at 7 PM. Invega injection due 10/11/2024. Invega injection given next injection due 11/10/2024. 6. 90-day hold hearing was today but due to a technicality he was placed on another 21-day hold and we will need to file for a 90-day hold if he is still going to be here within the next 17 days which is what the statute actually says for that transition alone. Going from a 21 to a 90 day hold requires that a notice is filed within 17 days. Has not required when going from 90 days to 1 year which would be the next step. 7. Appreciate hospitalist consult and will follow recommendations as indicated. Involuntary Hold Information 2 96 Hour Hold: 96 Hour Involuntary Admission: Yes 96 Hour Hold Ending Date: 09/04/24 96 Hour Hold Ending Time: 16:30 Other Hold: Hold End Date: 09/27/27 Attestations NPU 2 Medical Necessity Statement*: Inpatient hospitalization is medically necessary and the clinically appropriate intervention at this time. We will monitor/initiate medications and make changes as indicated. Likely length of stay may be greater than 14 as guardianship/placement are managed. Coding Level of Care Code Acute Code for [facility] Fwd Diagnoses Nonhealing wound of heel S91.309A Cellulitis L03.90 Spider bite T63.301A Schizophrenia, acute F23 Psychotic disorder F29 Depression F32.A
[2024-10-14 22:00] VITALS: BP 117/75; PULSE 104; RESP 18; TEMP 36.4; O2SAT 96
[2024-10-15] MEDS: nicotine 4 mg lozenge MUCOUS MEM ×8 (03:41→20:32)
[2024-10-15 06:00] VITALS: BP 132/88; PULSE 87; RESP 18; TEMP 36.7; O2SAT 97
--- NOTE | 2024-10-15 07:15 | W.PM.NPUPNS ---
Subjective NPU Subjective: Patient presented today reporting that he is doing fine. We discussed the fact that his process for getting moving towards the next situation has been somewhat slow but that we are looking for different possibilities for him. We discussed that Dr. Cuello would be here tomorrow and that he would be in charge of making decisions for the next couple weeks and that I was hopeful that he would not be here when I returned because everything had been processed. He denied any side effects to medications. Mental Status Exam MSE Comments: This is an obese white male in hospital scrubs with limited grooming and eye contact looking quite different as he has shaved his jackson and mustache completely. No abnormal movements except for mild to extreme psychomotor agitation. Patient with significant pacing as well and he continues to touch his fingers repeatedly on his stomach while walking aimlessly through the hallway. More cooperative with exam. Speech was limited normal volume and less pressured. Mood described as better. Affect was Congruent and less odd. Thought process was linear but very superficial. Thought contact: patient denies suicidal or homicidal ideation, There were prominent paranoid delusions appreciated. He remained guarded throughout the interview. Patient denied auditory and denied visual hallucinations but appeared to be responding to internal stimuli. Attention and concentration appeared intact and memory appeared unreliable but none were formally tested. Patient is alert and oriented times person and place and time. Insight, judgment and impulse control are all impaired. Vitals/I&O/Wt Last Vital Signs Temp 98.0 F 10/15/24 06:00 Pulse 87 10/15/24 06:00 Resp 18 10/15/24 06:00 BP 132/88 10/15/24 06:00 Pulse Ox 97 10/15/24 06:00 O2 Del Method Room Air 10/14/24 14:00 10/14/24 10/15/24 10/15/24 22:59 06:59 14:59 Intake Total 380 / 760 Balance 380 / 760 Weight last 48 hrs Weight 126.189 kg Data NPU 10/11/24 08:13 10/11/24 08:13 A&P Assessment and plan (1) Nonhealing wound of heel: (2) Cellulitis: (3) Spider bite: (4) Schizophrenia, acute: (5) Psychotic disorder: (6) Depression: Plan This is a 39-year-old white male involuntarily hospitalized with decline in functioning at home with worsening psychosis currently on no medications at this time. He appears abstinent from illicit drugs and alcohol at this time. 1.? ? Encouraged individual, group and milieu therapy. ?2. ? We will attempt to gather collateral information from previous providers ?3. ? TO-15 minute checks on the unit. ?4. ? Recommend sober living treatment at the highest level of care to which the patient is willing to commit. 5. Patient received both IM 234mg, 156mg on 09/06/24 and 09/13/24 respectively. Still remains psychotic, Continue Latuda 40mg at 7Pm after dinner with Haldol 5mg IM if patient refuses oral supplementation. Increased Latuda to 60 mg at 7 PM. Invega injection due 10/11/2024. Invega injection given next injection due 11/10/2024. 6. 90-day hold hearing was today but due to a technicality he was placed on another 21-day hold and we will need to file for a 90-day hold if he is still going to be here within the next 17 days which is what the statute actually says for that transition alone. Going from a 21 to a 90 day hold requires that a notice is filed within 17 days. Has not required when going from 90 days to 1 year which would be the next step. 7. Appreciate hospitalist consult and will follow recommendations as indicated. Involuntary Hold Information 96 Hour Hold: 96 Hour Involuntary Admission: Yes 96 Hour Hold Ending Date: 09/04/24 96 Hour Hold Ending Time: 16:30 Other Hold: Hold End Date: 09/27/27 Attestations NPU Medical Necessity Statement*: Inpatient hospitalization is medically necessary and the clinically appropriate intervention at this time. We will monitor/initiate medications and make changes as indicated. Likely length of stay may be greater than 14 as guardianship/placement are managed. Coding Level of Care Code Acute Code for [facility] Fwd Diagnoses Nonhealing wound of heel S91.309A Cellulitis L03.90 Spider bite T63.301A Schizophrenia, acute F23 Psychotic disorder F29 Depression F32.A
[2024-10-15 07:50] VITALS: BP 132/88
[2024-10-15] MEDS: losartan 50 mg Tablet 25 MG PO (07:50)
[2024-10-15] MEDS: ammonium lactate lotion 226 gm Btl 1 APPLIC TOPICAL ×2 (07:51→17:38)
[2024-10-15] MEDS: bacitracin ointment Pkt TOPICAL ×2 (07:51→20:32)
[2024-10-15 14:00] VITALS: BP 134/82; PULSE 91; RESP 18; TEMP 36.4; O2SAT 97
[2024-10-15] MEDS: lurasidone 20 mg Tablet 60 MG PO (17:37)
[2024-10-15 21:21] VITALS: BP 137/86; PULSE 98; RESP 18; TEMP 36.4; O2SAT 100
[2024-10-16 06:00] VITALS: BP 121/70; PULSE 72; RESP 18; TEMP 36.5; O2SAT 95
[2024-10-16] MEDS: losartan 50 mg Tablet 25 MG PO (08:05)
[2024-10-16] MEDS: nicotine 4 mg lozenge MUCOUS MEM ×7 (08:06→19:56)
--- NOTE | 2024-10-16 08:07 | PC.NURSE ---
refused scheduled Bacitracin & Lac-Hydrin this morning
[2024-10-16 13:48] VITALS: BP 113/60; PULSE 109; RESP 16; TEMP 36.5; O2SAT 96
[2024-10-16] MEDS: lurasidone 20 mg Tablet 60 MG PO (17:04)
--- NOTE | 2024-10-16 18:06 | P.NPUPN_ITS ---
Subjective NPU 2 Subjective: Patient is a 39-year-old male with psychosis currently on Invega. The patient had continued to appear ambitious about returning to live with family members. He had spent much of the day pacing the hallway while engaging in some repetitive hand gestures. He had continued to appear calm and cooperative on the milieu. He was compliant with his medications as prescribed. Mental Status Exam 2 MSE Comments: This is an obese white male in hospital scrubs with limited grooming and eye contact looking quite different as he has shaved his jackson and mustache completely. No abnormal movements except for mild to extreme psychomotor agitation. Patient with significant pacing as well and he continues to touch his fingers repeatedly on his stomach while walking aimlessly through the hallway. He was more cooperative with exam. His speech was more spontaneous and productive with normal volume and less pressured. Mood described as better. Affect was blunted. Thought process was linear but very superficial. Thought contact: patient denies suicidal or homicidal ideation, There were prominent paranoid delusions appreciated. He remained somewhat guarded throughout the interview. Patient denied auditory or visual hallucinations but appeared to be responding to internal stimuli. Attention and concentration appeared intact and memory appeared unreliable but none were formally tested. Patient is alert and oriented times person and place and time. Insight, judgment and impulse control are all impaired. Vitals/I&O/Wt Last Vital Signs Temp 97.7 F 10/16/24 13:48 Pulse 109 H 10/16/24 13:48 Resp 16 10/16/24 13:48 BP 113/60 10/16/24 13:48 Pulse Ox 96 10/16/24 13:48 O2 Del Method Room Air 10/16/24 13:48 Weight last 48 hrs Weight 126.189 kg Data NPU 10/11/24 08:13 10/11/24 08:13 A&P Assessment and plan (1) Schizophrenia, acute: (2) Nonhealing wound of heel: (3) Cellulitis: (4) Spider bite: (5) Psychotic disorder: (6) Depression: Plan This is a 39-year-old white male involuntarily hospitalized with decline in functioning at home with worsening psychosis currently on no medications at this time. He appears abstinent from illicit drugs and alcohol at this time. 1.? ? Encouraged individual, group and milieu therapy. ?2. ? We will attempt to gather collateral information from previous providers ?3. ? TO-15 minute checks on the unit. ?4. ? Recommend sober living treatment at the highest level of care to which the patient is willing to commit. 5. Patient received both IM 234mg, 156mg on 09/06/24 and 09/13/24 respectively. Still remains psychotic, Continue Latuda 40mg at 7Pm after dinner with Haldol 5mg IM if patient refuses oral supplementation. Increased Latuda to 60 mg at 7 PM. Invega injection due 10/11/2024. Invega injection given next injection due 11/10/2024. 6. 90-day hold hearing was today but due to a technicality he was placed on another 21-day hold and we will need to file for a 90-day hold if he is still going to be here within the next 17 days which is what the statute actually says for that transition alone. Going from a 21 to a 90 day hold requires that a notice is filed within 17 days. Has not required when going from 90 days to 1 year which would be the next step. 7. Appreciate hospitalist consult and will follow recommendations as indicated. Involuntary Hold Information 2 96 Hour Hold: 96 Hour Involuntary Admission: Yes 96 Hour Hold Ending Date: 09/04/24 96 Hour Hold Ending Time: 16:30 Other Hold: Hold End Date: 09/27/27 Attestations NPU 2 Medical Necessity Statement*: Inpatient hospitalization is medically necessary and the clinically appropriate intervention at this time. We will monitor/initiate medications and make changes as indicated. Likely length of stay may be greater than 14 days as guardianship/placement are managed. Coding Level of Care Code Acute Code for [facility] Diagnoses Schizophrenia, acute F23 Nonhealing wound of heel S91.309A Cellulitis L03.90 Spider bite T63.301A Psychotic disorder F29 Depression F32.A
[2024-10-16] MEDS: ammonium lactate lotion 226 gm Btl 1 APPLIC TOPICAL (18:15)
[2024-10-16 20:49] VITALS: BP 118/74; PULSE 96; RESP 18; TEMP 36.5; O2SAT 97
[2024-10-17 06:15] VITALS: BP 130/86; PULSE 74; TEMP 36.4; O2SAT 97
[2024-10-17] MEDS: nicotine 2 mg Gum BUCCAL ×4 (06:15→13:17)
[2024-10-17 07:58] VITALS: BP 107/71
[2024-10-17] MEDS: losartan 50 mg Tablet 25 MG PO (07:58)
[2024-10-17] MEDS: bacitracin ointment Pkt TOPICAL (08:02)
[2024-10-17 14:00] VITALS: BP 120/68; PULSE 80; RESP 16; TEMP 37; O2SAT 96
[2024-10-17] MEDS: nicotine 4 mg lozenge MUCOUS MEM ×3 (17:10→21:10)
[2024-10-17] MEDS: lurasidone 20 mg Tablet 60 MG PO (17:10)
[2024-10-17] MEDS: ammonium lactate lotion 226 gm Btl 1 APPLIC TOPICAL (17:12)
--- NOTE | 2024-10-17 17:45 | P.NPUPN_ITS ---
Subjective NPU 2 Subjective: Patient is a 39-year-old male with psychosis currently on Invega. The patient had continued to isolate himself on the milieu often wandering the halls pacing and engaged in repetitive movements with his hands along his stomach. He had appeared at times preoccupied by his internal conversations. He had been redirectable with no reports of problems with his sleep. He had continued to appear somewhat perplexed about why he was here and was informed that guardianship was being pursued although he did not appear to say anything when informed of this information today by this bond writer. Mental Status Exam 2 MSE Comments: This is an obese white male in hospital scrubs with limited grooming and eye contact looking quite different as he has shaved his jackson and mustache completely. No abnormal movements except for mild psychomotor activation today. Patient with significant pacing as well and he continues to touch his fingers repeatedly on his stomach while walking aimlessly through the hallway. He was more cooperative with exam. His speech was more spontaneous and productive with normal volume and less pressured. Mood described as allright. Affect was blunted. Thought process was linear but very superficial. Thought contact: patient denies suicidal or homicidal ideation, There were prominent paranoid delusions appreciated. He remained somewhat guarded throughout the interview. Patient denied auditory or visual hallucinations but appeared to be responding to internal stimuli. Attention and concentration appeared intact and memory appeared unreliable but none were formally tested. Patient is alert and oriented times person and place and time. Insight, judgment and impulse control are all impaired. Vitals/I&O/Wt Last Vital Signs Temp 98.6 F 10/17/24 14:00 Pulse 80 10/17/24 14:00 Resp 16 10/17/24 14:00 BP 120/68 10/17/24 14:00 Pulse Ox 96 10/17/24 14:00 O2 Del Method Room Air 10/17/24 14:00 10/17/24 10/17/24 10/17/24 06:59 14:59 22:59 Intake Total 240 / 240 Balance 240 / 240 Data NPU 10/11/24 08:13 10/11/24 08:13 A&P Assessment and plan (1) Schizophrenia, acute: (2) Nonhealing wound of heel: (3) Cellulitis: (4) Spider bite: (5) Psychotic disorder: (6) Depression: Plan This is a 39-year-old white male involuntarily hospitalized with decline in functioning at home with worsening psychosis currently on no medications at this time. He appears abstinent from illicit drugs and alcohol at this time. 1.? ? Encouraged individual, group and milieu therapy. ?2. ? We will attempt to gather collateral information from previous providers ?3. ? TO-15 minute checks on the unit. ?4. ? Recommend sober living treatment at the highest level of care to which the patient is willing to commit. 5. Patient received both IM 234mg, 156mg on 09/06/24 and 09/13/24 respectively. Still remains psychotic, Continue Latuda 40mg at 7Pm after dinner with Haldol 5mg IM if patient refuses oral supplementation. Increased Latuda to 80 mg at 7 PM. Invega injection due 10/11/2024. Invega injection given next injection due 11/10/2024. 6. 90-day hold hearing was today but due to a technicality he was placed on another 21-day hold and we will need to file for a 90-day hold if he is still going to be here within the next 17 days which is what the statute actually says for that transition alone. Going from a 21 to a 90 day hold requires that a notice is filed within 17 days. Has not required when going from 90 days to 1 year which would be the next step. 7. Appreciate hospitalist consult and will follow recommendations as indicated. Involuntary Hold Information 2 96 Hour Hold: 96 Hour Involuntary Admission: Yes 96 Hour Hold Ending Date: 09/04/24 96 Hour Hold Ending Time: 16:30 Other Hold: Hold End Date: 09/27/27 Attestations NPU 2 Medical Necessity Statement*: Inpatient hospitalization is medically necessary and the clinically appropriate intervention at this time. We will monitor/initiate medications and make changes as indicated. Likely length of stay may be greater than 14 days as guardianship/placement are managed. Coding Level of Care Code Acute Code for [facility] Diagnoses Schizophrenia, acute F23 Nonhealing wound of heel S91.309A Cellulitis L03.90 Spider bite T63.301A Psychotic disorder F29 Depression F32.A
[2024-10-17 19:42] VITALS: BP 123/77; PULSE 98; RESP 20; TEMP 36.7; O2SAT 96
[2024-10-18 06:00] VITALS: BP 118/79; PULSE 80; RESP 20; TEMP 36.6; O2SAT 97
[2024-10-18] MEDS: nicotine 4 mg lozenge MUCOUS MEM ×9 (06:13→21:29)
[2024-10-18 08:00] VITALS: BP 118/79
[2024-10-18] MEDS: losartan 50 mg Tablet 25 MG PO (08:00)
[2024-10-18] MEDS: ammonium lactate lotion 226 gm Btl 1 APPLIC TOPICAL ×2 (08:02→17:25)
[2024-10-18 14:00] VITALS: BP 123/85; PULSE 111; RESP 18; TEMP 36.3; O2SAT 96
[2024-10-18] MEDS: lurasidone 80 mg Tablet PO (16:12)
--- NOTE | 2024-10-18 16:24 | P.NPUPN_ITS ---
Subjective NPU 2 Subjective: Patient is a 39-year-old male with psychosis currently on Invega. The patient was interviewed today [facility] and during the interview began to state that he had been to this place before and would investigate them for them impropriety. He had continued to engage in repetitive walking while having a conversation with himself. He had not been aggressive and was redirectable. He had limited engagement in groups. The patient had reported that he had been to a variety of countries and had worked for the in the past and [facility] and [employer]. He continued to remain oblivious to the potential for his sister to obtain guardianship over him. He had continued intimate that he would return to his now ex- and child. Mental Status Exam 2 MSE Comments: This is an obese white male in hospital scrubs with limited grooming and eye contact looking quite different as he has shaved his jackson and mustache completely. No abnormal movements except for mild psychomotor activation today. Patient with significant pacing as well and he continues to touch his fingers repeatedly on his stomach while walking aimlessly through the hallway. He was more cooperative with exam. His speech was more spontaneous and productive with normal volume and less pressured. Mood described as good. Affect was blunted. Thought process was linear but very superficial. Thought contact: patient denies suicidal or homicidal ideation, There were prominent bizarre delusions appreciated. He remained somewhat guarded throughout the interview. Patient denied auditory or visual hallucinations but appeared to be responding to internal stimuli. Attention and concentration appeared intact and memory appeared unreliable but none were formally tested. Patient is alert and oriented times person and place and time. Insight, judgment and impulse control are all impaired. Vitals/I&O/Wt Last Vital Signs Temp 97.3 F L 10/18/24 14:00 Pulse 111 H 10/18/24 14:00 Resp 18 10/18/24 14:00 BP 123/85 10/18/24 14:00 Pulse Ox 96 10/18/24 14:00 O2 Del Method Room Air 10/18/24 06:00 Data NPU 10/11/24 08:13 10/11/24 08:13 A&P Assessment and plan (1) Schizophrenia, acute: (2) Nonhealing wound of heel: (3) Cellulitis: (4) Spider bite: (5) Psychotic disorder: (6) Depression: Plan This is a 39-year-old white male involuntarily hospitalized with decline in functioning at home with worsening psychosis currently on no medications at this time. He appears abstinent from illicit drugs and alcohol at this time. 1.? ? Encouraged individual, group and milieu therapy. ?2. ? We will attempt to gather collateral information from previous providers ?3. ? TO-15 minute checks on the unit. ?4. ? Recommend sober living treatment at the highest level of care to which the patient is willing to commit. 5. Patient received both IM 234mg, 156mg on 09/06/24 and 09/13/24 respectively. Still remains psychotic, Continue Latuda 40mg at 7Pm after dinner with Haldol 5mg IM if patient refuses oral supplementation. Increased Latuda to 80 mg at 7 PM. Invega injection due 10/11/2024. Invega injection given next injection due 11/10/2024. 6. 90-day hold hearing was today but due to a technicality he was placed on another 21-day hold and we will need to file for a 90-day hold if he is still going to be here within the next 17 days which is what the statute actually says for that transition alone. Going from a 21 to a 90 day hold requires that a notice is filed within 17 days. Has not required when going from 90 days to 1 year which would be the next step. 7. Guardianship may be required by this facility as we are awaiting a date for this filing by sister. Involuntary Hold Information 2 96 Hour Hold: 96 Hour Involuntary Admission: Yes 96 Hour Hold Ending Date: 09/04/24 96 Hour Hold Ending Time: 16:30 Other Hold: Hold End Date: 09/27/27 Attestations NPU 2 Medical Necessity Statement*: Inpatient hospitalization is medically necessary and the clinically appropriate intervention at this time. We will monitor/initiate medications and make changes as indicated. Likely length of stay may be greater than 14 days as guardianship/placement are managed. Coding Level of Care Code Acute Code for [facility] Diagnoses Schizophrenia, acute F23 Nonhealing wound of heel S91.309A Cellulitis L03.90 Spider bite T63.301A Psychotic disorder F29 Depression F32.A
[2024-10-18] MEDS: acetaminophen 325 mg Tablet 650 MG PO (17:53)
[2024-10-18 22:00] VITALS: BP 160/88; PULSE 97; RESP 18; TEMP 36.6; O2SAT 96
[2024-10-19 06:00] VITALS: BP 115/82; PULSE 107; RESP 18; TEMP 36.5; O2SAT 96
[2024-10-19] MEDS: nicotine 4 mg lozenge MUCOUS MEM ×8 (06:02→19:53)
[2024-10-19 08:01] VITALS: BP 122/76
[2024-10-19] MEDS: losartan 50 mg Tablet 25 MG PO (08:01)
--- NOTE | 2024-10-19 08:04 | PC.NURSE ---
pt upset continues to pace, talking to himself, pt stated when asked they are fucking trying to send me to a retirement like I am a retard, I know what it is from when i went to [facility] and it follows me back and the [employer] do not know how to interpet it. it is ok because I am getting out next week because that is when the court order is up and I will take care of it. senior chemical process engineer stated that while the pt was pacing the hallways mumbling about going to take care of it, I killed all those people and they stole my identity and are saying they killed them but I did.
[2024-10-19] MEDS: ammonium lactate lotion 226 gm Btl 1 APPLIC TOPICAL ×2 (08:10→17:18)
[2024-10-19 14:00] VITALS: BP 108/72; PULSE 92; RESP 16; TEMP 36.4; O2SAT 94
--- NOTE | 2024-10-19 15:58 | P.NPUPN_ITS ---
Subjective NPU 2 Subjective: Patient is a 39-year-old male with psychosis currently on Invega. The patient continued to engage in bizarre behavior on the unit having conversations while rubbing his stomach repeatedly. He had been aggressive. He continued to have unusual statements stating that he had a need to go to the [facility] as he had [employer] benefits in place for him. He had stated that he has a house to live and when he leaves here despite there being no evidence of this. The patient had endorsed adequate sleep. He had reported that his mood was good. He had continued to ignore information provided to him that he would need to be placed in another home when guardianship was achieved by either the sister or the county. Mental Status Exam 2 MSE Comments: This is an obese white male in hospital scrubs with limited grooming and eye contact looking quite different as he has shaved his jackson and mustache completely. No abnormal movements except for mild psychomotor activation today. Patient with significant pacing as well and he continues to touch his fingers repeatedly on his stomach while walking aimlessly through the hallway. He was more cooperative with exam. His speech was more spontaneous and productive with normal volume and less pressured. Mood described as allright. Affect was brighter today. Thought process was linear but very superficial. Thought contact: patient denies suicidal or homicidal ideation, There were prominent bizarre delusions appreciated. He remained somewhat guarded throughout the interview. Patient denied auditory or visual hallucinations but appeared to be responding to internal stimuli. Attention and concentration appeared intact and memory appeared unreliable but none were formally tested. Patient is alert and oriented times person and place and time. Insight, judgment and impulse control are all impaired. Vitals/I&O/Wt Last Vital Signs Temp 97.6 F 10/19/24 14:00 Pulse 92 10/19/24 14:00 Resp 16 10/19/24 14:00 BP 108/72 10/19/24 14:00 Pulse Ox 94 10/19/24 14:00 O2 Del Method Room Air 10/19/24 14:00 Data NPU 10/11/24 08:13 10/11/24 08:13 A&P Assessment and plan (1) Schizophrenia, acute: (2) Spider bite: (3) Psychotic disorder: (4) Depression: Plan This is a 39-year-old white male involuntarily hospitalized with decline in functioning at home with worsening psychosis currently on no medications at this time. He appears abstinent from illicit drugs and alcohol at this time. 1.? ? Encouraged individual, group and milieu therapy. ?2. ? We will attempt to gather collateral information from previous providers ?3. ? TO-15 minute checks on the unit. ?4. ? Recommend sober living treatment at the highest level of care to which the patient is willing to commit. 5. Patient received both IM 234mg, 156mg on 09/06/24 and 09/13/24 respectively. Still remains psychotic, Continue Latuda 40mg at 7Pm after dinner with Haldol 5mg IM if patient refuses oral supplementation. Increased Latuda to 80 mg at 7 PM. Invega injection due 10/11/2024. Invega injection given next injection due 11/10/2024. 6. 90-day hold hearing was today but due to a technicality he was placed on another 21-day hold and we will need to file for a 90-day hold if he is still going to be here within the next 17 days which is what the statute actually says for that transition alone. Going from a 21 to a 90 day hold requires that a notice is filed within 17 days. Has not required when going from 90 days to 1 year which would be the next step. 7. Guardianship may be required by this facility as we are awaiting a date for this filing by sister. Involuntary Hold Information 2 96 Hour Hold: 96 Hour Involuntary Admission: Yes 96 Hour Hold Ending Date: 09/04/24 96 Hour Hold Ending Time: 16:30 Other Hold: Hold End Date: 09/27/27 Attestations NPU 2 Medical Necessity Statement*: Inpatient hospitalization is medically necessary and the clinically appropriate intervention at this time. We will monitor/initiate medications and make changes as indicated. Likely length of stay may be greater than 14 days as guardianship/placement are managed. Coding Level of Care Code Acute Code for [facility] Diagnoses Schizophrenia, acute F23 Spider bite T63.301A Psychotic disorder F29 Depression F32.A
[2024-10-19] MEDS: lurasidone 80 mg Tablet PO (17:18)
[2024-10-19 21:53] VITALS: BP 113/69; PULSE 99; RESP 18; TEMP 36.6; O2SAT 97
[2024-10-20] MEDS: nicotine 4 mg lozenge MUCOUS MEM ×10 (01:37→23:05)
[2024-10-20] MEDS: acetaminophen 325 mg Tablet 650 MG PO (03:32)
[2024-10-20 06:00] VITALS: BP 96/61; PULSE 72; RESP 20; TEMP 36.5; O2SAT 97
[2024-10-20 08:30] VITALS: BP 121/66
[2024-10-20] MEDS: losartan 50 mg Tablet 25 MG PO (08:30)
--- NOTE | 2024-10-20 13:48 | PC.NURSE ---
pt left at [address] jin menezes.
[2024-10-20 14:00] VITALS: BP 113/83; PULSE 92; RESP 16; TEMP 36.3; O2SAT 96
--- NOTE | 2024-10-20 15:37 | P.NPUPN_ITS ---
Subjective NPU 2 Subjective: Patient is a 39-year-old male with psychosis currently on Invega and latuda. The patient had continued to report that he did not need to be here at this time. He had reported that he had [employer] benefits and had a place to return to with his and children. These facts or statements reported by the patient did not appear to be reality oriented at this time. Patient had reported that he was doing well and remained compliant with his medication regimen. He reported continued concern about being here excessively long stating that he would be suing the hospital for placing him here. Patient had continued to spend much of the afternoon engaged in conversations with himself while repetitively touching his abdomen. Mental Status Exam 2 MSE Comments: This is an obese white male in hospital scrubs with limited grooming and eye contact looking quite different as he has shaved his jackson and mustache completely. No abnormal movements except for mild psychomotor activation today. Patient with significant pacing as well and he continues to touch his fingers repeatedly on his stomach while walking aimlessly through the hallway. He was more cooperative with exam. His speech was more spontaneous and productive with normal volume and less pressured. Mood described as allright. Affect was blunted today. Thought process was linear but very superficial. Thought contact: patient denies suicidal or homicidal ideation, There were prominent bizarre delusions appreciated, multiple in nature. He remained somewhat guarded throughout the interview. Patient denied auditory or visual hallucinations but appeared to be responding to internal stimuli. Attention and concentration appeared intact and memory appeared unreliable but none were formally tested. Patient is alert and oriented times person and place and time. Insight, judgment and impulse control are all impaired. Vitals/I&O/Wt Last Vital Signs Temp 97.7 F 10/20/24 06:00 Pulse 72 10/20/24 06:00 Resp 20 H 10/20/24 06:00 BP 121/66 10/20/24 08:30 Pulse Ox 97 10/20/24 06:00 O2 Del Method Room Air 10/20/24 06:00 Data NPU 10/11/24 08:13 10/11/24 08:13 A&P Assessment and plan (1) Schizophrenia, acute: (2) Spider bite: (3) Psychotic disorder: (4) Depression: Plan This is a 39-year-old white male involuntarily hospitalized with decline in functioning at home with worsening psychosis currently on no medications at this time. He appears abstinent from illicit drugs and alcohol at this time. 1.? ? Encouraged individual, group and milieu therapy. ?2. ? We will attempt to gather collateral information from previous providers ?3. ? TO-15 minute checks on the unit. ?4. ? Recommend sober living treatment at the highest level of care to which the patient is willing to commit. 5. Patient received both IM 234mg, 156mg on 09/06/24 and 09/13/24 respectively. Still remains psychotic, Continue Latuda 40mg at 7Pm after dinner with Haldol 5mg IM if patient refuses oral supplementation. Increased Latuda to 80 mg at 7 PM. Invega injection due 10/11/2024. Invega injection given next injection due 11/10/2024. 6. 90-day hold hearing was today but due to a technicality he was placed on another 21-day hold and we will need to file for a 90-day hold if he is still going to be here within the next 17 days which is what the statute actually says for that transition alone. Patient now placed on another [address] today. 7. Guardianship may be required by this facility as we are awaiting a date for this filing by sister. Involuntary Hold Information 2 96 Hour Hold: 96 Hour Involuntary Admission: Yes 96 Hour Hold Ending Date: 09/04/24 96 Hour Hold Ending Time: 16:30 Other Hold: Hold End Date: 09/27/27 Attestations NPU 2 Medical Necessity Statement*: Inpatient hospitalization is medically necessary and the clinically appropriate intervention at this time. We will monitor/initiate medications and make changes as indicated. Likely length of stay may be greater than 14 days as guardianship/placement are managed. Coding Level of Care Code Acute Code for [facility] Diagnoses Schizophrenia, acute F23 Spider bite T63.301A Psychotic disorder F29 Depression F32.A
[2024-10-20] MEDS: lurasidone 80 mg Tablet PO (17:05)
[2024-10-20 21:47] VITALS: BP 108/65; PULSE 82; RESP 18; O2SAT 97
[2024-10-21] MEDS: nicotine 4 mg lozenge MUCOUS MEM ×9 (00:38→19:58)
[2024-10-21 06:00] VITALS: BP 95/56; PULSE 87; RESP 18; TEMP 37.1; O2SAT 96
--- NOTE | 2024-10-21 06:09 | PC.NURSE ---
Patient up and pacing the halls during the night. Patient began having a heated conversation with himself, almost yelling at some points. While pacing, patient tapping hand on stomach. Went to walk with patient in the asif to try and calm patient. 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 States i did hell week with the [employer] and it wasn't that bad . States he signed up when he was 17. States have you seen the video of them getting bin laden ? That was me . Patient then began talking about his mother and that's the reason he is locked up . Patient calmer at this point and not wanting to talk anymore.
[2024-10-21 08:29] VITALS: BP 134/81
[2024-10-21] MEDS: losartan 50 mg Tablet 25 MG PO (08:29)
[2024-10-21] MEDS: ammonium lactate lotion 226 gm Btl 1 APPLIC TOPICAL ×2 (09:59→17:40)
--- NOTE | 2024-10-21 12:26 | PC.NURSE ---
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
--- NOTE | 2024-10-21 13:25 | P.NPUPN_ITS ---
Subjective NPU 2 Subjective: Patient is a 39-year-old male with psychosis currently on Invega and latuda. The patient had continued to appear more agitated although not threatening others or aggressive. He had expressed anger towards having to be here stating he did not need to have a guardian and that the [employer] was going to charge him for the services. He had stated that he had received $100,000 bill before and stated that he was a and did not deserve this. He had continued to spend much of the day pacing the hallway while engaged in some mental ritual while speaking with himself. He had referred to this as a means of communicating with troops but did not elaborate today. He was redirectable. He had reported adequate sleep and stated that he was fine. Mental Status Exam 2 MSE Comments: This is an obese white male in hospital scrubs with limited grooming and eye contact looking quite different as he has shaved his jackson and mustache completely. No abnormal movements except for mild psychomotor activation today. Patient with significant pacing as well and he continues to touch his fingers repeatedly on his stomach while walking aimlessly through the hallway. He was more cooperative with exam. His speech was productive with limited spontaneity today with normal volume and less pressured. Mood described as not so good. Affect was more irritable today. Thought process was linear but very superficial. Thought contact: patient denies suicidal or homicidal ideation, There were prominent bizarre delusions appreciated, multiple in nature. He remained somewhat guarded throughout the interview. Patient denied auditory or visual hallucinations but appeared to be responding to internal stimuli. Attention and concentration appeared intact and memory appeared unreliable but none were formally tested. Patient is alert and oriented times person and place and time. Insight, judgment and impulse control are all impaired. Vitals/I&O/Wt Last Vital Signs Temp 98.8 F 10/21/24 06:00 Pulse 87 10/21/24 06:00 Resp 18 10/21/24 06:00 BP 134/81 10/21/24 08:29 Pulse Ox 96 10/21/24 06:00 O2 Del Method Room Air 10/20/24 14:00 Data NPU 10/11/24 08:13 10/11/24 08:13 A&P Assessment and plan (1) Schizophrenia, acute: (2) Spider bite: (3) Psychotic disorder: (4) Depression: Plan This is a 39-year-old white male involuntarily hospitalized with decline in functioning at home with worsening psychosis currently on no medications at this time. He appears abstinent from illicit drugs and alcohol at this time. 1.? ? Encouraged individual, group and milieu therapy. ?2. ? We will attempt to gather collateral information from previous providers ?3. ? TO-15 minute checks on the unit. ?4. ? Recommend sober living treatment at the highest level of care to which the patient is willing to commit. 5. Patient received both IM 234mg, 156mg on 09/06/24 and 09/13/24 respectively. Still remains psychotic, Continue Latuda 40mg at 7Pm after dinner with Haldol 5mg IM if patient refuses oral supplementation. Increased Latuda to 100 mg at 7 PM on . Invega injection due 10/11/2024. Invega injection given next injection due 11/10/2024. 6. 90-day hold hearing was today but due to a technicality he was placed on another 21-day hold and we will need to file for a 90-day hold if he is still going to be here within the next 17 days which is what the statute actually says for that transition alone. Patient now placed on another [address] today. 7. Guardianship may be required by this facility as we are awaiting a date for this filing by sister. Involuntary Hold Information 2 96 Hour Hold: 96 Hour Involuntary Admission: Yes 96 Hour Hold Ending Date: 09/04/24 96 Hour Hold Ending Time: 16:30 Other Hold: Hold End Date: 09/27/27 Attestations NPU 2 Medical Necessity Statement*: Inpatient hospitalization is medically necessary and the clinically appropriate intervention at this time. We will monitor/initiate medications and make changes as indicated. Likely length of stay may be greater than 14 days as guardianship/placement are managed. Coding Level of Care Code Acute Code for [facility] Fwd Diagnoses Schizophrenia, acute F23 Spider bite T63.301A Psychotic disorder F29 Depression F32.A
[2024-10-21 14:00] VITALS: BP 128/76; PULSE 97; RESP 16; TEMP 36.6; O2SAT 97
[2024-10-21] MEDS: acetaminophen 325 mg Tablet 650 MG PO (15:11)
[2024-10-21] MEDS: lurasidone 80 mg Tablet 100 MG PO (16:19)
[2024-10-21 22:00] VITALS: BP 122/73; PULSE 90; RESP 18; TEMP 36.7; O2SAT 97
[2024-10-22] MEDS: nicotine 4 mg lozenge MUCOUS MEM ×10 (01:45→22:00)
[2024-10-22 06:00] VITALS: BP 107/65; PULSE 77; RESP 17; O2SAT 97
[2024-10-22 07:45] VITALS: BP 102/62
[2024-10-22] MEDS: ammonium lactate lotion 226 gm Btl 1 APPLIC TOPICAL ×2 (08:39→18:04)
[2024-10-22 14:00] VITALS: BP 140/95; PULSE 97; RESP 16; TEMP 36.7; O2SAT 96
[2024-10-22] MEDS: lurasidone 80 mg Tablet 100 MG PO (15:37)
--- NOTE | 2024-10-22 16:24 | W.PM.NPUPNS ---
Subjective NPU Subjective: Patient is a 39-year-old male with psychosis currently on Invega and latuda. There were no episodes of aggression. The patient had remained compliant with his oral medications. He had continued to isolate himself from peers and spent hours in the afternoon walking and engaging in some internal conversations with others while repeatedly moving his fingers and tapping his stomach. The patient had continued to state that these actions were going to lead him to [facility] the hospital. 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 Mental Status Exam MSE Comments: This is an obese white male in hospital scrubs with limited grooming and eye contact looking quite different as he has shaved his jackson and mustache completely. No abnormal movements except for mild psychomotor activation today. Patient with significant pacing as well and he continues to touch his fingers repeatedly on his stomach while walking aimlessly through the hallway. He was superfically cooperative with exam. His speech was productive with limited spontaneity today with normal volume and less pressured. Mood described as allright Affect was more subdued today. Thought process was linear but very superficial. Thought contact: patient denies suicidal or homicidal ideation, There were prominent bizarre delusions appreciated, multiple in nature. He remained somewhat guarded throughout the interview. Patient denied auditory or visual hallucinations but appeared to be responding to internal stimuli. Attention and concentration appeared intact and memory appeared unreliable but none were formally tested. Patient is alert and oriented times person and place and time. Insight, judgment and impulse control are all impaired. Vitals/I&O/Wt Last Vital Signs Temp 98.1 F 10/22/24 14:00 Pulse 97 10/22/24 14:00 Resp 16 10/22/24 14:00 BP 140/95 10/22/24 14:00 Pulse Ox 96 10/22/24 14:00 O2 Del Method Room Air 10/22/24 14:00 Weight last 48 hrs Weight 129.092 kg Data NPU 10/11/24 08:13 10/11/24 08:13 A&P Assessment and plan (1) Schizophrenia, acute: (2) Psychotic disorder: (3) Depression: Plan This is a 39-year-old white male involuntarily hospitalized with decline in functioning at home with worsening psychosis currently on no medications at this time. He appears abstinent from illicit drugs and alcohol at this time. 1.? ? Encouraged individual, group and milieu therapy. ?2. ? We will attempt to gather collateral information from previous providers ?3. ? TO-15 minute checks on the unit. ?4. ? Recommend sober living treatment at the highest level of care to which the patient is willing to commit. 5. Patient received both IM 234mg, 156mg on 09/06/24 and 09/13/24 respectively. Still remains psychotic, Continue Latuda 40mg at 7Pm after dinner with Haldol 5mg IM if patient refuses oral supplementation. Increased Latuda to 100 mg at 7 PM on 10/21/24. Invega injection due 10/11/2024. Invega injection given next injection due 11/10/2024. 6. 90-day hold hearing was today but due to a technicality he was placed on another 21-day hold and we will need to file for a 90-day hold if he is still going to be here within the next 17 days which is what the statute actually says for that transition alone. Patient now placed on another [address] today. 7. Guardianship may be required by this facility as we are awaiting a date for this filing by sister. Involuntary Hold Information 96 Hour Hold: 96 Hour Involuntary Admission: Yes 96 Hour Hold Ending Date: 09/04/24 96 Hour Hold Ending Time: 16:30 Other Hold: Hold End Date: 09/27/27 Attestations NPU Medical Necessity Statement*: Inpatient hospitalization is medically necessary and the clinically appropriate intervention at this time. We will monitor/initiate medications and make changes as indicated. Likely length of stay may be greater than 14 days as guardianship/placement are managed. Coding Level of Care Code Acute Code for [facility] Fwd Diagnoses Schizophrenia, acute F23 Psychotic disorder F29 Depression F32.A
[2024-10-22] MEDS: acetaminophen 325 mg Tablet 650 MG PO ×2 (17:16→21:51)
[2024-10-22 22:00] VITALS: BP 105/58; PULSE 76; RESP 17; O2SAT 95
[2024-10-23] MEDS: nicotine 4 mg lozenge MUCOUS MEM ×8 (05:59→19:45)
[2024-10-23 06:00] VITALS: BP 133/84; PULSE 90; RESP 18; TEMP 36.7; O2SAT 97
[2024-10-23 07:50] VITALS: BP 133/84
[2024-10-23] MEDS: losartan 50 mg Tablet 25 MG PO (07:50)
[2024-10-23 14:00] VITALS: BP 130/91; PULSE 99; RESP 18; TEMP 36.9; O2SAT 97
--- NOTE | 2024-10-23 17:09 | P.NPUPN_ITS ---
Subjective NPU 2 Subjective: Patient is a 39-year-old male with psychosis currently on Invega and latuda. Patient had continued to state that he did not need any guardianship. He had no episodes of aggression. He had reported that he would go live with his mother but at the same time stated that he was no longer needing to call her until the time came for him to leave. Patient reported adequate sleep. He continued to show evidence of improving self-care in regards to hygiene. He continues spend several hours a day walking the hallway and engaging in conversations with himself while repeatedly tapping his fingers to his stomach. Mental Status Exam 2 MSE Comments: This is an obese white male in hospital scrubs with limited grooming and eye contact. No abnormal movements except for mild psychomotor activation today. Patient with significant pacing as well and he continues to touch his fingers repeatedly on his stomach while walking aimlessly through the hallway. He was superfically cooperative with exam. His speech was productive with limited spontaneity today with normal volume and less pressured. Mood described as good Affect was odd and subdued. Thought process was linear but very superficial. Thought contact: patient denies suicidal or homicidal ideation, There were prominent bizarre delusions appreciated, multiple in nature. He remained somewhat guarded throughout the interview. Patient denied auditory or visual hallucinations but appeared to be responding to internal stimuli. Attention and concentration appeared intact and memory appeared unreliable but none were formally tested. Patient is alert and oriented times person and place and time. Insight, judgment and impulse control are all impaired. Vitals/I&O/Wt Last Vital Signs Temp 98.4 F 10/23/24 14:00 Pulse 99 10/23/24 14:00 Resp 18 10/23/24 14:00 BP 130/91 10/23/24 14:00 Pulse Ox 97 10/23/24 14:00 O2 Del Method Room Air 10/22/24 14:00 Weight last 48 hrs Weight 129.092 kg Data NPU 10/11/24 08:13 10/11/24 08:13 A&P Assessment and plan (1) Schizophrenia, acute: (2) Psychotic disorder: (3) Depression: Plan This is a 39-year-old white male involuntarily hospitalized with decline in functioning at home with worsening psychosis currently on no medications at this time. He appears abstinent from illicit drugs and alcohol at this time. 1.? ? Encouraged individual, group and milieu therapy. ?2. ? We will attempt to gather collateral information from previous providers ?3. ? TO-15 minute checks on the unit. ?4. ? Recommend sober living treatment at the highest level of care to which the patient is willing to commit. 5. Patient received both IM 234mg, 156mg on 09/06/24 and 09/13/24 respectively. Still remains psychotic, Continue Latuda 40mg at 7Pm after dinner with Haldol 5mg IM if patient refuses oral supplementation. Increased Latuda to 100 mg at 7 PM on 10/21/24. Invega injection due 10/11/2024. Invega injection given next injection due 11/10/2024. 6. 90-day hold hearing was today but due to a technicality he was placed on another 21-day hold and we will need to file for a 90-day hold if he is still going to be here within the next 17 days which is what the statute actually says for that transition alone. Patient now placed on another [address] today. 7. Guardianship may be required by this facility as we are awaiting a date for this filing by sister. Involuntary Hold Information 2 96 Hour Hold: 96 Hour Involuntary Admission: Yes 96 Hour Hold Ending Date: 09/04/24 96 Hour Hold Ending Time: 16:30 Other Hold: Hold End Date: 09/27/27 Attestations NPU 2 Medical Necessity Statement*: Inpatient hospitalization is medically necessary and the clinically appropriate intervention at this time. We will monitor/initiate medications and make changes as indicated. Likely length of stay may be greater than 14 days as guardianship/placement are managed. Coding Level of Care Code Acute Code for [facility] Fwd Diagnoses Schizophrenia, acute F23 Psychotic disorder F29 Depression F32.A
[2024-10-23] MEDS: lurasidone 80 mg Tablet 100 MG PO (17:38)
[2024-10-23 20:42] VITALS: BP 90/56; PULSE 79; RESP 16; TEMP 36.9; O2SAT 96
[2024-10-24 05:36] VITALS: BP 121/80; PULSE 83; RESP 16; TEMP 36.3; O2SAT 95
[2024-10-24] MEDS: nicotine 4 mg lozenge MUCOUS MEM ×9 (06:12→22:02)
[2024-10-24 08:05] VITALS: BP 121/80
[2024-10-24] MEDS: losartan 50 mg Tablet 25 MG PO (08:05)
[2024-10-24] MEDS: ammonium lactate lotion 226 gm Btl 1 APPLIC TOPICAL (08:46)
--- NOTE | 2024-10-24 13:44 | P.NPUPN_ITS ---
Subjective NPU 2 Subjective: Patient is a 39-year-old male with psychosis currently on Invega and latuda. Patient reported no side effects from his medication. He had no substantial changes from the prior day. He reported adequate sleep. He had reported that he had been in [employer] and was waiting his pension. He had reported a continued plan to return to live with his mother but reported no conversation with his mother in several weeks. The patient had appeared again to minimize or ignore the possibility of the patient's sister obtaining guardianship over the patient. He had reported and threatened potential lawsuit for these actions towards this hospital. He had continued to struggle with completion of activities of daily living. Mental Status Exam 2 MSE Comments: This is an obese white male in hospital scrubs with limited grooming and eye contact. No abnormal movements except for mild psychomotor activation today. Patient with significant pacing as well and he continues to touch his fingers repeatedly on his stomach while walking aimlessly through the hallway. He was superfically cooperative with exam with laissez faire attitude. His speech was productive with limited spontaneity today with normal volume and less pressured. Mood described as allright, how are you? Affect was odd and subdued. Thought process was linear but very superficial. Thought contact: patient denies suicidal or homicidal ideation, There were prominent bizarre delusions appreciated, multiple in nature. He remained somewhat guarded throughout the interview. Patient denied auditory or visual hallucinations but appeared to be responding to internal stimuli. Attention and concentration appeared intact and memory appeared unreliable but none were formally tested. Patient is alert and oriented times person and place and time. Insight, judgment are poor. Impulse control: limited. Vitals/I&O/Wt Last Vital Signs Temp 97.4 F L 10/24/24 05:36 Pulse 83 10/24/24 05:36 Resp 16 10/24/24 05:36 BP 121/80 10/24/24 08:05 Pulse Ox 95 10/24/24 05:36 O2 Del Method Room Air 10/24/24 05:36 Data NPU 10/11/24 08:13 10/11/24 08:13 A&P Assessment and plan (1) Schizophrenia, acute: (2) Psychotic disorder: (3) Depression: Plan This is a 39-year-old white male involuntarily hospitalized with decline in functioning at home with worsening psychosis currently on no medications at this time. He appears abstinent from illicit drugs and alcohol at this time. 1.? ? Encouraged individual, group and milieu therapy. ?2. ? We will attempt to gather collateral information from previous providers ?3. ? TO-15 minute checks on the unit. ?4. ? Recommend sober living treatment at the highest level of care to which the patient is willing to commit. 5. Patient received both IM 234mg, 156mg on 09/06/24 and 09/13/24 respectively. Still remains psychotic, Continue Latuda 40mg at 7Pm after dinner with Haldol 5mg IM if patient refuses oral supplementation. Increased Latuda to 100 mg at 7 PM on 10/21/24. Invega injection due 10/11/2024. Invega injection given next injection due 11/10/2024. 6. 90-day hold hearing was today but due to a technicality he was placed on another 21-day hold and we will need to file for a 90-day hold if he is still going to be here within the next 17 days which is what the statute actually says for that transition alone. Patient now placed on another [address] today. 7. Guardianship may be required by this facility as we are awaiting a date for this filing by sister. Involuntary Hold Information 2 96 Hour Hold: 96 Hour Involuntary Admission: Yes 96 Hour Hold Ending Date: 09/04/24 96 Hour Hold Ending Time: 16:30 Other Hold: Hold End Date: 09/27/27 Attestations NPU 2 Medical Necessity Statement*: Inpatient hospitalization is medically necessary and the clinically appropriate intervention at this time. We will monitor/initiate medications and make changes as indicated. Likely length of stay may be greater than 14 days as guardianship/placement are managed. Coding Level of Care Code Acute Code for [facility] Fwd Diagnoses Schizophrenia, acute F23 Psychotic disorder F29 Depression F32.A
[2024-10-24 14:00] VITALS: BP 114/73; PULSE 94; RESP 16; TEMP 36.4; O2SAT 94
[2024-10-24] MEDS: lurasidone 80 mg Tablet 100 MG PO (16:44)
[2024-10-24 19:28] VITALS: BP 131/86; PULSE 103; RESP 16; TEMP 36.7; O2SAT 94
[2024-10-24] MEDS: acetaminophen 325 mg Tablet 650 MG PO (21:16)
[2024-10-25] MEDS: nicotine 4 mg lozenge MUCOUS MEM ×9 (05:57→21:34)
[2024-10-25 06:00] VITALS: BP 120/81; PULSE 86; RESP 16; TEMP 36.3; O2SAT 97
--- NOTE | 2024-10-25 12:30 | P.NPUPN_ITS ---
Subjective NPU 2 Subjective: Patient is a 39-year-old male with psychosis currently on Invega and latuda. Patient was informed yesterday that his sister would be pursuing guardianship and the patient appeared agreeable and lieu of having the state become his guardian. The patient had continued to engage in significant self talk discussing more with the [place] and continued to engage in some form of games while remaining preoccupied by his voices. There were no acts of aggression noted. He had remained cooperative and redirectable while appearing to attend in completion of activities of daily living more frequently. Mental Status Exam 2 MSE Comments: This is an obese white male in hospital scrubs with limited grooming and eye contact. No abnormal movements except for mild psychomotor activation today. Patient with significant pacing as well and he continues to touch his fingers repeatedly on his stomach while walking aimlessly through the hallway. He was superfically cooperative with exam with laissez faire attitude. His speech was productive with limited spontaneity today with normal volume and less pressured. Mood described as good. Affect was odd and subdued. Thought process was linear but very superficial. Thought contact: patient denies suicidal or homicidal ideation, There were prominent bizarre delusions appreciated, multiple in nature. He remained somewhat guarded throughout the interview. Patient denied auditory or visual hallucinations but appeared to be responding to internal stimuli. Attention and concentration appeared intact and memory appeared unreliable but none were formally tested. Patient is alert and oriented times person and place and time. Insight, judgment are poor. Impulse control: limited. Vitals/I&O/Wt Last Vital Signs Temp 97.4 F L 10/25/24 06:00 Pulse 86 10/25/24 06:00 Resp 16 10/25/24 06:00 BP 120/81 10/25/24 06:00 Pulse Ox 97 10/25/24 06:00 O2 Del Method Room Air 10/25/24 06:00 Data NPU 10/11/24 08:13 10/11/24 08:13 A&P Assessment and plan (1) Schizophrenia, acute: (2) Psychotic disorder: (3) Depression: Plan This is a 39-year-old white male involuntarily hospitalized with decline in functioning at home with worsening psychosis currently on no medications at this time. He appears abstinent from illicit drugs and alcohol at this time. 1.? ? Encouraged individual, group and milieu therapy. ?2. ? We will attempt to gather collateral information from previous providers ?3. ? TO-15 minute checks on the unit. ?4. ? Recommend sober living treatment at the highest level of care to which the patient is willing to commit. 5. Patient received both IM 234mg, 156mg on 09/06/24 and 09/13/24 respectively. Still remains psychotic, Continue Latuda 40mg at 7Pm after dinner with Haldol 5mg IM if patient refuses oral supplementation. Continue Latuda 100 mg at 7 PM on 10/21/24. Invega injection due 10/11/2024. Invega injection given next injection due 11/10/2024. 6. 90-day hold hearing was today but due to a technicality he was placed on another 21-day hold and we will need to file for a 90-day hold if he is still going to be here within the next 17 days which is what the statute actually says for that transition alone. Patient now placed on another [address] today. 7. Guardianship may be required by this facility as we are awaiting a date for this filing by sister. Involuntary Hold Information 2 96 Hour Hold: 96 Hour Involuntary Admission: Yes 96 Hour Hold Ending Date: 09/04/24 96 Hour Hold Ending Time: 16:30 Other Hold: Hold End Date: 09/27/27 Attestations NPU 2 Medical Necessity Statement*: Inpatient hospitalization is medically necessary and the clinically appropriate intervention at this time. We will monitor/initiate medications and make changes as indicated. Likely length of stay may be greater than 14 days as guardianship/placement are managed. Coding Level of Care Code Acute Code for [facility] Fwd Diagnoses Schizophrenia, acute F23 Psychotic disorder F29 Depression F32.A
[2024-10-25 14:00] VITALS: BP 117/73; PULSE 80; RESP 16; TEMP 36.7; O2SAT 97
[2024-10-25] MEDS: lurasidone 80 mg Tablet 100 MG PO (17:12)
[2024-10-25] MEDS: ammonium lactate lotion 226 gm Btl 1 APPLIC TOPICAL (17:13)
[2024-10-25 19:33] VITALS: BP 138/94; PULSE 87; RESP 16; TEMP 36.4; O2SAT 97
[2024-10-26] MEDS: nicotine 4 mg lozenge MUCOUS MEM ×10 (04:38→23:43)
[2024-10-26 06:00] VITALS: BP 134/84; PULSE 99; RESP 14; TEMP 37.1; O2SAT 95
[2024-10-26 07:51] VITALS: BP 134/84
[2024-10-26] MEDS: losartan 50 mg Tablet 25 MG PO (07:51)
[2024-10-26] MEDS: ammonium lactate lotion 226 gm Btl 1 APPLIC TOPICAL ×2 (07:53→17:04)
--- NOTE | 2024-10-26 13:21 | P.NPUPN_ITS ---
Subjective NPU 2 Subjective: Patient is a 39-year-old male with psychosis currently on Invega and latuda. Patient continued to appear preoccupied internally while spending some time in his room engaged in repeated conversations with himself regarding the [place]. He had minimized these problems on interview today. He had been redirectable and compliant on the milieu. He had reported that he was doing fine. He had stated that he did not wish to be a guardian of the state and was content about guardianship occurring under his sister. Mental Status Exam 2 MSE Comments: This is an obese white male in hospital scrubs with limited grooming and eye contact. No abnormal movements except for mild psychomotor activation today. Patient with significant pacing as well and he continues to touch his fingers repeatedly on his stomach while walking aimlessly through the hallway. He was superfically cooperative with exam with laissez faire attitude. His speech was productive with limited spontaneity today with normal volume and less pressured. Mood described as good. Affect was odd and subdued. Thought process was linear but very superficial. Thought contact: patient denies suicidal or homicidal ideation, There were prominent bizarre delusions appreciated, multiple in nature. He remained somewhat guarded throughout the interview. Patient denied auditory or visual hallucinations but appeared to be responding to internal stimuli. Attention and concentration appeared intact and memory appeared unreliable but none were formally tested. Patient is alert and oriented times person and place and time. Insight and judgment are poor. Impulse control: limited. Vitals/I&O/Wt Last Vital Signs Temp 98.7 F 10/26/24 06:00 Pulse 99 10/26/24 06:00 Resp 14 10/26/24 06:00 BP 134/84 10/26/24 07:51 Pulse Ox 95 10/26/24 06:00 O2 Del Method Room Air 10/26/24 06:00 10/25/24 10/26/24 10/26/24 22:59 06:59 14:59 Intake Total 1440 / 1440 Balance 1440 / 1440 Data NPU 10/11/24 08:13 10/11/24 08:13 A&P Assessment and plan (1) Schizophrenia, acute: (2) Psychotic disorder: (3) Depression: Plan This is a 39-year-old white male involuntarily hospitalized with decline in functioning at home with worsening psychosis currently on no medications at this time. He appears abstinent from illicit drugs and alcohol at this time. 1.? ? Encouraged individual, group and milieu therapy. ?2. ? We will attempt to gather collateral information from previous providers ?3. ? TO-15 minute checks on the unit. ?4. ? Recommend sober living treatment at the highest level of care to which the patient is willing to commit. 5. Patient received both IM 234mg, 156mg on 09/06/24 and 09/13/24 respectively. Still remains psychotic, Continue Latuda 40mg at 7Pm after dinner with Haldol 5mg IM if patient refuses oral supplementation. Continue Latuda 100 mg at 7 PM on 10/21/24. Invega injection due 10/11/2024. Invega injection given next injection due 11/10/2024. 6. 90-day hold hearing was today but due to a technicality he was placed on another 21-day hold and we will need to file for a 90-day hold if he is still going to be here within the next 17 days which is what the statute actually says for that transition alone. Patient now placed on another [address] today. 7. Guardianship may be required by this facility as we are awaiting a date for this filing by sister. Involuntary Hold Information 2 96 Hour Hold: 96 Hour Involuntary Admission: Yes 96 Hour Hold Ending Date: 09/04/24 96 Hour Hold Ending Time: 16:30 Other Hold: Hold End Date: 09/27/27 Attestations NPU 2 Medical Necessity Statement*: Inpatient hospitalization is medically necessary and the clinically appropriate intervention at this time. We will monitor/initiate medications and make changes as indicated. Likely length of stay may be greater than 14 days as guardianship/placement are managed. Coding Level of Care Code Acute Code for g Fwd Diagnoses Schizophrenia, acute F23 Psychotic disorder F29 Depression F32.A
[2024-10-26 14:00] VITALS: BP 120/88; PULSE 93; RESP 18; TEMP 36.7; O2SAT 92
[2024-10-26] MEDS: lurasidone 80 mg Tablet 100 MG PO (17:02)
[2024-10-26 20:28] VITALS: BP 94/59; PULSE 78; RESP 18; TEMP 36.6; O2SAT 95
[2024-10-27 06:00] VITALS: BP 108/63; PULSE 105; RESP 17; TEMP 36.7; O2SAT 97
[2024-10-27] MEDS: nicotine 4 mg lozenge MUCOUS MEM ×6 (06:21→17:18)
[2024-10-27 14:00] VITALS: BP 123/80; PULSE 106; RESP 16; TEMP 36.6; O2SAT 96
--- NOTE | 2024-10-27 14:26 | P.NPUPN_ITS ---
Subjective NPU 2 Subjective: Patient is a 39-year-old male with psychosis currently on Invega and latuda. No substantial changes were noted today. 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 He had reported having an amplitude of training and reported having significant special abilities. He continued to spend time isolating himself while engaged in conversations with himself appearing to repetitively play a mental game involving [place] troops stating that he was communicating with soldiers. Mental Status Exam 2 MSE Comments: This is an obese white male in hospital scrubs with limited grooming and eye contact. No abnormal movements except for mild psychomotor activation today. Patient with significant pacing as well and he continues to touch his fingers repeatedly on his stomach while walking aimlessly through the hallway. He was superfically cooperative with exam with laissez faire attitude. His speech remained productive. Mood described as great. Affect was odd and subdued. Thought process was linear but very superficial. Thought contact: patient denies suicidal or homicidal ideation, There were prominent bizarre delusions appreciated, multiple in nature. Patient denied auditory or visual hallucinations but appeared to be responding to internal stimuli. Attention and concentration appeared intact and memory appeared unreliable but none were formally tested. Patient is alert and oriented times person and place and time. Insight and judgment are poor. Impulse control: limited. Vitals/I&O/Wt Last Vital Signs Temp 98.0 F 10/27/24 06:00 Pulse 105 H 10/27/24 06:00 Resp 17 10/27/24 06:00 BP 108/63 10/27/24 06:00 Pulse Ox 97 10/27/24 06:00 O2 Del Method Room Air 10/26/24 06:00 10/26/24 10/27/24 10/27/24 22:59 06:59 14:59 Intake Total 480 / 480 Balance 480 / 480 Data NPU 10/11/24 08:13 10/11/24 08:13 A&P Assessment and plan (1) Schizophrenia, acute: (2) Psychotic disorder: (3) Depression: Plan This is a 39-year-old white male involuntarily hospitalized with decline in functioning at home with worsening psychosis currently on no medications at this time. He appears abstinent from illicit drugs and alcohol at this time. 1.? ? Encouraged individual, group and milieu therapy. ?2. ? We will attempt to gather collateral information from previous providers ?3. ? TO-15 minute checks on the unit. ?4. ? Recommend sober living treatment at the highest level of care to which the patient is willing to commit. 5. Patient received both IM 234mg, 156mg on 09/06/24 and 09/13/24 respectively. Still remains psychotic, Continue Latuda 40mg at 7Pm after dinner with Haldol 5mg IM if patient refuses oral supplementation. Continue Latuda 100 mg at 7 PM on 10/21/24. Invega injection due 10/11/2024. Invega injection given next injection due 11/10/2024. 6. 90-day hold hearing was today but due to a technicality he was placed on another 21-day hold and we will need to file for a 90-day hold if he is still going to be here within the next 17 days which is what the statute actually says for that transition alone. Patient now placed on another [address] today. 7. Guardianship may be required by this facility as we are awaiting a date for this filing by sister-filing COMPLETED. Involuntary Hold Information 2 96 Hour Hold: 96 Hour Involuntary Admission: Yes 96 Hour Hold Ending Date: 09/04/24 96 Hour Hold Ending Time: 16:30 Other Hold: Hold End Date: 09/27/27 Attestations NPU 2 Medical Necessity Statement*: Inpatient hospitalization is medically necessary and the clinically appropriate intervention at this time. We will monitor/initiate medications and make changes as indicated. Likely length of stay may be greater than 14 days as guardianship/placement are managed. Coding Level of Care Code Acute Code for [facility] Fwd Diagnoses Schizophrenia, acute F23 Psychotic disorder F29 Depression F32.A
[2024-10-27] MEDS: lurasidone 80 mg Tablet 100 MG PO (17:18)
[2024-10-27] MEDS: ammonium lactate lotion 226 gm Btl 1 APPLIC TOPICAL (17:47)
[2024-10-27 21:48] VITALS: BP 119/67; PULSE 86; RESP 18; TEMP 36.9; O2SAT 95
[2024-10-28] MEDS: nicotine 4 mg lozenge MUCOUS MEM ×9 (00:32→20:03)
[2024-10-28 06:00] VITALS: BP 112/65; PULSE 102; RESP 18; TEMP 36.5; O2SAT 96
[2024-10-28] MEDS: acetaminophen 325 mg Tablet 650 MG PO (06:00)
[2024-10-28 08:20] VITALS: BP 112/65
[2024-10-28] MEDS: losartan 50 mg Tablet 25 MG PO (08:20)
--- NOTE | 2024-10-28 13:57 | P.NPUPN_ITS ---
Subjective NPU 2 Subjective: Patient is a 39-year-old male with psychosis currently on Invega and latuda. The patient had continued to appear at times grandiose stating that he had numerous jobs. 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 He had continued to spend time engaged in repeated allege at war games that he would play out in his head while pacing the unit. He had reported adequate sleep and had continued to state that he was here . Mental Status Exam 2 MSE Comments: This is an obese white male in hospital scrubs with limited grooming and eye contact. No abnormal movements except for mild psychomotor activation today. Patient with significant pacing as well and he continues to touch his fingers repeatedly on his stomach while walking aimlessly through the hallway. He was superfically cooperative with exam with laissez faire attitude. His speech remained productive. Mood described as good. Affect was odd, mood incongruent and subdued. Thought process was linear but very superficial. Thought contact: patient denies suicidal or homicidal ideation, There were prominent bizarre delusions appreciated, multiple in nature. Patient denied auditory or visual hallucinations but appeared to be responding to internal stimuli. Attention and concentration appeared intact and memory appeared unreliable but none were formally tested. Patient is alert and oriented times person and place and time. Insight and judgment are poor. Impulse control: limited. Vitals/I&O/Wt Last Vital Signs Temp 97.7 F 10/28/24 06:00 Pulse 102 H 10/28/24 06:00 Resp 18 10/28/24 06:00 BP 112/65 10/28/24 08:20 Pulse Ox 96 10/28/24 06:00 O2 Del Method Room Air 10/27/24 14:00 Data NPU 10/11/24 08:13 10/11/24 08:13 A&P Assessment and plan (1) Schizophrenia, acute: (2) Psychotic disorder: (3) Depression: Plan This is a 39-year-old white male involuntarily hospitalized with decline in functioning at home with worsening psychosis currently on no medications at this time. He appears abstinent from illicit drugs and alcohol at this time. 1.? ? Encouraged individual, group and milieu therapy. ?2. ? We will attempt to gather collateral information from previous providers ?3. ? TO-15 minute checks on the unit. ?4. ? Recommend sober living treatment at the highest level of care to which the patient is willing to commit. 5. Patient received both IM 234mg, 156mg on 09/06/24 and 09/13/24 respectively. Still remains psychotic, Continue Latuda 40mg at 7Pm after dinner with Haldol 5mg IM if patient refuses oral supplementation. Continue Latuda 100 mg at 7 PM on 10/21/24. Invega injection due 10/11/2024. Invega injection given next injection due 11/10/2024. 6. 90-day hold hearing was today but due to a technicality he was placed on another 21-day hold and we will need to file for a 90-day hold if he is still going to be here within the next 17 days which is what the statute actually says for that transition alone. Patient now placed on another [address] today. 7. Guardianship may be required by this facility as we are awaiting a date for this filing by sister-filing COMPLETED. Involuntary Hold Information 2 96 Hour Hold: 96 Hour Involuntary Admission: Yes 96 Hour Hold Ending Date: 09/04/24 96 Hour Hold Ending Time: 16:30 Other Hold: Hold End Date: 09/27/27 Attestations NPU 2 Medical Necessity Statement*: Inpatient hospitalization is medically necessary and the clinically appropriate intervention at this time. We will monitor/initiate medications and make changes as indicated. Likely length of stay may be greater than 14 days as guardianship/placement are managed. Coding Level of Care Code Acute Code for [facility] Fwd Diagnoses Schizophrenia, acute F23 Psychotic disorder F29 Depression F32.A
[2024-10-28 14:00] VITALS: BP 173/94; PULSE 102; RESP 18; TEMP 36.9; O2SAT 98
[2024-10-28] MEDS: lurasidone 80 mg Tablet 100 MG PO (17:42)
[2024-10-28 20:33] VITALS: BP 112/81; PULSE 97; RESP 18; TEMP 36.6; O2SAT 97
[2024-10-29] MEDS: nicotine 4 mg lozenge MUCOUS MEM ×9 (02:42→18:12)
[2024-10-29] MEDS: acetaminophen 325 mg Tablet 650 MG PO (02:48)
[2024-10-29 05:55] VITALS: BP 120/82; PULSE 85; RESP 18; TEMP 36.6; O2SAT 96
[2024-10-29 07:38] VITALS: BP 120/82
[2024-10-29] MEDS: losartan 50 mg Tablet 25 MG PO (07:38)
--- NOTE | 2024-10-29 11:28 | P.NPUPN_ITS ---
Subjective NPU 2 Subjective: Patient is a 39-year-old male with psychosis currently on Invega and latuda. The patient had asked the newswriter of this note whether he had a warm feeling in his back. The patient had reported that he had a warm feeling in his back because a sensor had gone off in his back indicating that war was eminent. He had reported that the sensors were something that were implanted into him by the . He had continued to report that he was in communication with the regarding these matters. Mental Status Exam 2 MSE Comments: This is an obese white male in hospital scrubs with limited grooming and eye contact. No abnormal movements except for mild psychomotor activation today. Patient with significant pacing as well and he continues to touch his fingers repeatedly on his stomach while walking aimlessly through the hallway. He was superfically cooperative with exam with laissez faire attitude. His speech remained productive. Mood described as good. Affect was odd, mood incongruent and subdued. Thought process was linear but very superficial. Thought contact: patient denies suicidal or homicidal ideation, There were prominent bizarre delusions appreciated, multiple in nature. Patient denied auditory or visual hallucinations but appeared to be responding to internal stimuli. Attention and concentration appeared intact and memory appeared unreliable but none were formally tested. Patient is alert and oriented times person and place and time. Insight and judgment are poor. Impulse control: limited. Vitals/I&O/Wt Last Vital Signs Temp 97.9 F 10/29/24 05:55 Pulse 85 10/29/24 05:55 Resp 18 10/29/24 05:55 BP 120/82 10/29/24 07:38 Pulse Ox 96 10/29/24 05:55 O2 Del Method Room Air 10/27/24 14:00 Weight last 48 hrs Weight 130.635 kg Data NPU 10/11/24 08:13 10/11/24 08:13 A&P Assessment and plan (1) Schizophrenia, acute: (2) Psychotic disorder: (3) Depression: Plan This is a 39-year-old white male involuntarily hospitalized with decline in functioning at home with worsening psychosis currently on no medications at this time. He appears abstinent from illicit drugs and alcohol at this time. 1.? ? Encouraged individual, group and milieu therapy. ?2. ? We will attempt to gather collateral information from previous providers ?3. ? TO-15 minute checks on the unit. ?4. ? Recommend sober living treatment at the highest level of care to which the patient is willing to commit. 5. Patient received both IM 234mg, 156mg on 09/06/24 and 09/13/24 respectively. Still remains psychotic, Continue Latuda 40mg at 7Pm after dinner with Haldol 5mg IM if patient refuses oral supplementation. Incerase Latuda to 120 mg at 7 PM on 10/21/24. Invega injection due 10/11/2024. Invega injection given next injection due 11/10/2024. 6. 90-day hold hearing was today but due to a technicality he was placed on another 21-day hold and we will need to file for a 90-day hold if he is still going to be here within the next 17 days which is what the statute actually says for that transition alone. Patient now placed on another [address] today. 7. Guardianship may be required by this facility as we are awaiting a date for this filing by sister-filing COMPLETED. Involuntary Hold Information 2 96 Hour Hold: 96 Hour Involuntary Admission: Yes 96 Hour Hold Ending Date: 09/04/24 96 Hour Hold Ending Time: 16:30 Other Hold: Hold End Date: 09/27/27 Attestations NPU 2 Medical Necessity Statement*: Inpatient hospitalization is medically necessary and the clinically appropriate intervention at this time. We will monitor/initiate medications and make changes as indicated. Likely length of stay may be greater than 14 days as guardianship/placement are managed. [facility], acute F23 Psychotic disorder F29 Depression F32.A
[2024-10-29 14:00] VITALS: BP 101/70; PULSE 110; RESP 17; TEMP 36.8; O2SAT 96
[2024-10-29] MEDS: lurasidone 80 mg Tablet 120 MG PO (16:43)
[2024-10-29 20:12] VITALS: BP 118/75; PULSE 90; RESP 17; TEMP 37.2; O2SAT 94
[2024-10-30 06:00] VITALS: BP 93/56; PULSE 76; RESP 18; TEMP 36.7; O2SAT 92
[2024-10-30] MEDS: nicotine 4 mg lozenge MUCOUS MEM ×8 (06:03→19:07)
[2024-10-30 07:32] VITALS: BP 115/77
[2024-10-30] MEDS: losartan 50 mg Tablet 25 MG PO (07:32)
--- NOTE | 2024-10-30 11:58 | W.PM.NPUPNS ---
Subjective NPU Subjective: Patient presented today reporting that things are going fine. 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 He continued these grandiose talking points without any reservation. He reports that he is doing fine with the changes in medication and reports that he is eating and sleeping fine and denied any side effects or issues. Mental Status Exam MSE Comments: This is an obese white male in hospital scrubs with limited grooming and eye contact. No abnormal movements except for mild psychomotor activation today. Patient with significant pacing as well and he continues to touch his fingers repeatedly on his stomach while walking aimlessly through the hallway. He was superfically cooperative with exam with laissez faire attitude. His speech remained productive. Mood described as good. Affect was odd but congruent. Thought process was linear but very superficial. Thought contact: patient denies suicidal or homicidal ideation, There were prominent bizarre delusions appreciated, multiple in nature. Patient denied auditory or visual hallucinations. Attention and concentration appeared intact and memory appeared unreliable but none were formally tested. Patient is alert and oriented times person and place and time. Insight and judgment are poor. Impulse control: limited. Vitals/I&O/Wt Last Vital Signs Temp 98.1 F 10/30/24 06:00 Pulse 76 10/30/24 06:00 Resp 18 10/30/24 06:00 BP 115/77 10/30/24 07:32 Pulse Ox 92 10/30/24 06:00 O2 Del Method Room Air 10/27/24 14:00 Weight last 48 hrs Weight 130.635 kg Data NPU 10/11/24 08:13 10/11/24 08:13 A&P Assessment and plan (1) Schizophrenia, acute: (2) Psychotic disorder: (3) Depression: Plan This is a 39-year-old white male involuntarily hospitalized with decline in functioning at home with worsening psychosis currently on no medications at this time. He appears abstinent from illicit drugs and alcohol at this time. 1.? ? Encouraged individual, group and milieu therapy. ?2. ? We will attempt to gather collateral information from previous providers ?3. ? TO-15 minute checks on the unit. ?4. ? Recommend sober living treatment at the highest level of care to which the patient is willing to commit. 5. Patient received both IM 234mg, 156mg on 09/06/24 and 09/13/24 respectively. Still remains psychotic, Continue Latuda 40mg at 7Pm after dinner with Haldol 5mg IM if patient refuses oral supplementation. Incerase Latuda to 120 mg at 7 PM on 10/21/24. Invega injection due 10/11/2024. Invega injection given next injection due 11/10/2024. 6. 90-day hold hearing was today but due to a technicality he was placed on another 21-day hold and we will need to file for a 90-day hold if he is still going to be here within the next 17 days which is what the statute actually says for that transition alone. Patient now placed on another [address] 7. Guardianship may be required by this facility as we are awaiting a date for this filing by sister-filing COMPLETED. Involuntary Hold Information 96 Hour Hold: 96 Hour Involuntary Admission: Yes 96 Hour Hold Ending Date: 09/04/24 96 Hour Hold Ending Time: 16:30 Other Hold: Hold End Date: 09/27/27 Attestations NPU Medical Necessity Statement*: Inpatient hospitalization is medically necessary and the clinically appropriate intervention at this time. We will monitor/initiate medications and make changes as indicated. Likely length of stay may be greater than 14 days as guardianship/placement are managed. Coding Level of Care Code Acute Code for g Fwd Diagnoses Schizophrenia, acute F23 Psychotic disorder F29 Depression F32.A
[2024-10-30 13:37] VITALS: BP 99/60; PULSE 98; RESP 16; TEMP 36.7; O2SAT 96
[2024-10-30] MEDS: lurasidone 80 mg Tablet 120 MG PO (17:03)
[2024-10-30 19:19] VITALS: BP 123/76; PULSE 87; RESP 18; TEMP 36.8; O2SAT 97
[2024-10-31 06:00] VITALS: BP 119/64; PULSE 80; RESP 16; TEMP 36.6; O2SAT 99
[2024-10-31] MEDS: nicotine 4 mg lozenge MUCOUS MEM ×8 (06:13→19:03)
[2024-10-31 08:17] VITALS: BP 119/64
[2024-10-31] MEDS: losartan 50 mg Tablet 25 MG PO (08:17)
--- NOTE | 2024-10-31 11:43 | P.NPUPN_ITS ---
Subjective NPU 2 Subjective: Patient presented today reporting that things are going okay. He continues to be more positive and not reporting any major difficulties. His general focuses when his discharge feasible. He identified that there were no problems as far as he was concerned with going to what ever facility was identified. We discussed that there would be the necessary time for the guardianship hearing and that we would want him to go directly from here to what ever facility he gets connected with hopefully in the next couple of days. He denied any side effects to the medication but staff report concerns that he would have capacity enough to make the correct decision to just stay somewhere without there being a locked aspect. Mental Status Exam 2 MSE Comments: This is an obese white male in hospital scrubs with limited grooming and eye contact. No abnormal movements except for mild psychomotor activation today. Patient with significant pacing as well and he continues to touch his fingers repeatedly on his stomach while walking aimlessly through the hallway. He was superfically cooperative with exam with laissez faire attitude. His speech remained productive. Mood described as good. Affect was odd but congruent. Thought process was linear but very superficial. Thought contact: patient denies suicidal or homicidal ideation, There were prominent bizarre delusions appreciated, multiple in nature. Patient denied auditory or visual hallucinations. Attention and concentration appeared intact and memory appeared unreliable but none were formally tested. Patient is alert and oriented times person and place and time. Insight and judgment are poor. Impulse control: limited. Vitals/I&O/Wt Last Vital Signs Temp 97.8 F 10/31/24 06:00 Pulse 80 10/31/24 06:00 Resp 16 10/31/24 06:00 BP 119/64 10/31/24 08:17 Pulse Ox 99 10/31/24 06:00 O2 Del Method Room Air 10/31/24 06:00 Data NPU 10/11/24 08:13 10/11/24 08:13 A&P Assessment and plan (1) Schizophrenia, acute: (2) Psychotic disorder: (3) Depression: Plan This is a 39-year-old white male involuntarily hospitalized with decline in functioning at home with worsening psychosis currently on no medications at this time. He appears abstinent from illicit drugs and alcohol at this time. 1.? ? Encouraged individual, group and milieu therapy. ?2. ? We will attempt to gather collateral information from previous providers ?3. ? TO-15 minute checks on the unit. ?4. ? Recommend sober living treatment at the highest level of care to which the patient is willing to commit. 5. Patient received both IM 234mg, 156mg on 09/06/24 and 09/13/24 respectively. Still remains psychotic, Continue Latuda 40mg at 7Pm after dinner with Haldol 5mg IM if patient refuses oral supplementation. Incerase Latuda to 120 mg at 7 PM on 10/21/24. Invega injection due 10/11/2024. Invega injection given next injection due 11/10/2024. 6. Patient now placed on another [address]. We will file for 90-day hold on Wednesday and the goal is that hopefully based on what we are hearing he could be out of here possibly in 2 weeks as we have a facility evaluating him. 7. Guardianship may be required by this facility as we are awaiting a date for this filing by sister-filing COMPLETED. Involuntary Hold Information 2 96 Hour Hold: 96 Hour Involuntary Admission: Yes 96 Hour Hold Ending Date: 09/04/24 96 Hour Hold Ending Time: 16:30 Other Hold: Hold End Date: 09/27/27 Attestations NPU 2 Medical Necessity Statement*: Inpatient hospitalization is medically necessary and the clinically appropriate intervention at this time. We will monitor/initiate medications and make changes as indicated. Likely length of stay may be greater than 14 days as guardianship/placement are managed. Coding Level of Care Code Acute Code for [facility] Fwd Diagnoses Schizophrenia, acute F23 Psychotic disorder F29 Depression F32.A
[2024-10-31 14:00] VITALS: BP 127/81; PULSE 102; RESP 18; TEMP 36.6; O2SAT 96
[2024-10-31] MEDS: lurasidone 80 mg Tablet 120 MG PO (16:40)
[2024-10-31] MEDS: ammonium lactate lotion 226 gm Btl 1 APPLIC TOPICAL (17:16)
[2024-10-31 19:54] VITALS: BP 123/65; PULSE 83; RESP 16; TEMP 37; O2SAT 95
[2024-11-01] MEDS: nicotine 4 mg lozenge MUCOUS MEM ×10 (05:59→22:39)
[2024-11-01 06:30] VITALS: BP 122/80; PULSE 94; RESP 18; O2SAT 94
[2024-11-01 14:00] VITALS: BP 117/78; PULSE 102; RESP 18; TEMP 36.6; O2SAT 99
[2024-11-01] MEDS: lurasidone 80 mg Tablet 120 MG PO (16:03)
[2024-11-01] MEDS: ammonium lactate lotion 226 gm Btl 1 APPLIC TOPICAL (19:11)
[2024-11-01 20:31] VITALS: BP 120/68; PULSE 100; RESP 18; TEMP 37; O2SAT 99
[2024-11-01] MEDS: acetaminophen 325 mg Tablet 650 MG PO (21:12)
--- NOTE | 2024-11-01 22:55 | P.NPUPN_ITS ---
Subjective NPU 2 Subjective: Patient presented today reporting that things are going okay. He denied any new or challenging problems. He is not necessarily happy about the idea of his sister having guardianship demonstrating limited insight into his continued delusional thinking. However he continues to be pleasant on engagement and awaiting placement. He denies any side effects to medications. Mental Status Exam 2 MSE Comments: This is an obese white male in hospital scrubs with limited grooming and eye contact. No abnormal movements except for mild psychomotor activation today. Patient with significant pacing as well and he continues to touch his fingers repeatedly on his stomach while walking aimlessly through the hallway. He was superfically cooperative with exam with laissez faire attitude. His speech remained productive. Mood described as good. Affect was odd but congruent. Thought process was linear but very superficial. Thought contact: patient denies suicidal or homicidal ideation, There were prominent bizarre delusions appreciated, multiple in nature. Patient denied auditory or visual hallucinations. Attention and concentration appeared intact and memory appeared unreliable but none were formally tested. Patient is alert and oriented times person and place and time. Insight and judgment are poor. Impulse control: limited. Vitals/I&O/Wt Last Vital Signs Temp 98.6 F 11/01/24 20:31 Pulse 100 11/01/24 20:31 Resp 18 11/01/24 20:31 BP 120/68 11/01/24 20:31 Pulse Ox 99 11/01/24 20:31 O2 Del Method Room Air 10/31/24 06:00 Data NPU 10/11/24 08:13 10/11/24 08:13 A&P Assessment and plan (1) Schizophrenia, acute: (2) Psychotic disorder: (3) Depression: Plan This is a 39-year-old white male involuntarily hospitalized with decline in functioning at home with worsening psychosis currently on no medications at this time. He appears abstinent from illicit drugs and alcohol at this time. 1.? ? Encouraged individual, group and milieu therapy. ?2. ? We will attempt to gather collateral information from previous providers ?3. ? TO-15 minute checks on the unit. ?4. ? Recommend sober living treatment at the highest level of care to which the patient is willing to commit. 5. Patient received both IM 234mg, 156mg on 09/06/24 and 09/13/24 respectively. Still remains psychotic, Continue Latuda 40mg at 7Pm after dinner with Haldol 5mg IM if patient refuses oral supplementation. Increased Latuda to 120 mg at 7 PM on 10/21/24. Invega injection due 10/11/2024. Invega injection given next injection due 11/10/2024. We will increase the Invega to 234 mg injection and will add oral Invega in the interim. 6. Patient now placed on another [address]. We will file for 90-day hold on Wednesday and the goal is that hopefully based on what we are hearing he could be out of here possibly in 2 weeks as we have a facility evaluating him. 7. Guardianship may be required by this facility as we are awaiting a date for this filing by sister-filing COMPLETED. Involuntary Hold Information 2 96 Hour Hold: 96 Hour Involuntary Admission: Yes 96 Hour Hold Ending Date: 09/04/24 96 Hour Hold Ending Time: 16:30 Other Hold: Hold End Date: 09/27/27 Attestations NPU 2 Medical Necessity Statement*: Inpatient hospitalization is medically necessary and the clinically appropriate intervention at this time. We will monitor/initiate medications and make changes as indicated. Likely length of stay may be greater than 14 days as guardianship/placement are managed. Coding Level of Care Code Acute Code for [facility] Fwd Diagnoses Schizophrenia, acute F23 Psychotic disorder F29 Depression F32.A
[2024-11-02] MEDS: nicotine 4 mg lozenge MUCOUS MEM ×11 (00:28→19:58)
[2024-11-02] MEDS: acetaminophen 325 mg Tablet 650 MG PO ×3 (02:32→15:56)
--- NOTE | 2024-11-02 06:06 | PC.NURSE ---
PT HAS BEEN UP ALL THROUGHOUT THE NIGHT. WHEN STAFF ENCOURAGES HIM TO GO TO BED PT WILL STATE NO I TOOK A NAP AND SLEPT TIL 1030 TONIGHT. RN INFORMED PT THAT HE WAS UP AND AWAKE AT 745 PM TONIGHT WHEN THIS RN CAME INTO WORK. PT WILL PACE THE HALLS AND TAP HIS STOMACH WHILE SPEAKING TO UNSEEN OTHERS ABOUT VARIOUS ASSIGNMENTS IN THE AND BRAIN MATTER. PT CONTINUES TO BE INTRUSIVE AT THE NURSES STATION. UNABLE TO REDIRECT AT TIMES BUT REMAINS COOPERATIVE.
[2024-11-02 06:15] VITALS: BP 124/77; PULSE 100; RESP 18; TEMP 36.5; O2SAT 94
[2024-11-02] MEDS: ammonium lactate lotion 226 gm Btl 1 APPLIC TOPICAL ×2 (09:11→18:33)
[2024-11-02 14:00] VITALS: BP 125/88; PULSE 91; RESP 16; TEMP 37; O2SAT 98
[2024-11-02] MEDS: lurasidone 80 mg Tablet 120 MG PO (17:31)
--- NOTE | 2024-11-02 19:34 | P.NPUPN_ITS ---
Subjective NPU 2 Subjective: Patient presented today reporting that things are going okay. He continued to have grandiose and delusional reports about his history and past jobs and experiences per staff reports and direct observation. He continues to be without difficulty on the unit from the standpoint of irritability or any other concern but does continue to pace the hallway and pat on his abdomen per staff reports and direct observation. He denies any side effects to the medication. Mental Status Exam 2 MSE Comments: This is an obese white male in hospital scrubs with limited grooming and eye contact. No abnormal movements except for mild psychomotor activation today. Patient with significant pacing as well and he continues to touch his fingers repeatedly on his stomach while walking aimlessly through the hallway. He was superfically cooperative with exam with laissez faire attitude. His speech remained productive. Mood described as good. Affect was odd but congruent. Thought process was linear but very superficial. Thought contact: patient denies suicidal or homicidal ideation, There were prominent bizarre delusions appreciated, multiple in nature. Patient denied auditory or visual hallucinations. Attention and concentration appeared intact and memory appeared unreliable but none were formally tested. Patient is alert and oriented times person and place and time. Insight and judgment are poor. Impulse control: limited. Vitals/I&O/Wt Last Vital Signs Temp 98.6 F 11/02/24 14:00 Pulse 91 11/02/24 14:00 Resp 16 11/02/24 14:00 BP 125/88 11/02/24 14:00 Pulse Ox 98 11/02/24 14:00 O2 Del Method Room Air 11/02/24 14:00 Data NPU 11/02/24 19:37 11/02/24 19:37 A&P Assessment and plan (1) Schizophrenia, acute: (2) Psychotic disorder: (3) Depression: Plan This is a 39-year-old white male involuntarily hospitalized with decline in functioning at home with worsening psychosis currently on no medications at this time. He appears abstinent from illicit drugs and alcohol at this time. 1.? ? Encouraged individual, group and milieu therapy. ?2. ? We will attempt to gather collateral information from previous providers ?3. ? TO-15 minute checks on the unit. ?4. ? Recommend sober living treatment at the highest level of care to which the patient is willing to commit. 5. Patient received both IM 234mg, 156mg on 09/06/24 and 09/13/24 respectively. Still remains psychotic, Continue Latuda 40mg at 7Pm after dinner with Haldol 5mg IM if patient refuses oral supplementation. Increased Latuda to 120 mg at 7 PM on 10/21/24. Invega injection due 10/11/2024. Invega injection given next injection due 11/10/2024. Increase the Invega to 234 mg injection and add oral Invega 6 mg p.o. daily until the next injection is given on 11/10/2024. 6. Patient now placed on another [address]. We will file for 90-day hold on Wednesday and the goal is that hopefully based on what we are hearing he could be out of here possibly in 2 weeks as we have a facility evaluating him. 7. Guardianship may be required by this facility as we are awaiting a date for this filing by sister-filing COMPLETED. Involuntary Hold Information 2 96 Hour Hold: 96 Hour Involuntary Admission: Yes 96 Hour Hold Ending Date: 09/04/24 96 Hour Hold Ending Time: 16:30 Other Hold: Hold End Date: 09/27/27 Attestations NPU 2 Medical Necessity Statement*: Inpatient hospitalization is medically necessary and the clinically appropriate intervention at this time. We will monitor/initiate medications and make changes as indicated. Likely length of stay may be greater than 14 days as guardianship/placement are managed. Coding Level of Care Code Acute Code for g Fwd Diagnoses Schizophrenia, acute F23 Psychotic disorder F29 Depression F32.A
[2024-11-02 19:44] LABS: Basophils # 0.1 10^3/uL (0.0-0.1); Basophils % 0.6 %; Eosinophils # 0.2 10^3/uL (0.0-0.8); Eosinophils % 2.4 %; Hematocrit 40.4 % (37-53); Lymphocytes # 3.9 10^3/uL (0.8-4.8); Lymphocytes % 40.1 %; Mean Corpuscular HGB Conc 32.7 g/dL (30-55); Mean Corpuscular Hemoglobin 28.3 pg (27-33); Mean Corpuscular Volume 86.7 fl (82-101); Mean Platelet Volume 9.5 fL (7.4-10.4); Monocytes # 0.9 10^3/uL (0.2-0.9); Monocytes % 9.1 %; Neutrophils # 4.61 10^3/uL (1.8-7.7); Neutrophils % 47.6 %; Nucleated Red Blood Cells % 0 %; Platelet Count 222 10^3/cmm (157-399); Red Blood Count 4.66 10^6/uL (3.85-5.65); Red Cell Distribution Width 12.4 % (12.1-15.1); White Blood Count 9.69 10^3/uL (3.29-11.43)
[2024-11-02 20:02] LABS: Alanine Aminotransferase 23 U/L (0-41); Albumin Level 3.9 g/dL (3.5-5.2); Alkaline Phosphatase 67 U/L (40-130); Anion Gap 13.8 (5-19); Aspartate Amino Transferase 13 U/L (0-40); Blood Urea Nitrogen 16 mg/dL (6-20); Calcium 9.3 mg/dL (8.5-10.5); Carbon Dioxide 27 mmol/L (22-29); Chloride 103 mmol/L (98-107); Creatinine Clr Calc Pharmacy 174.9831; Globulin 2.9 g/dL (1.3-4.6); Glomerular Filtration Rate 108.2 mL/min (90-130); Glucose 113 mg/dL (65-115); Osmolality Calculated 292 mOsm/kg (285-295); Potassium 3.8 mmol/L (3.5-5.1); Sodium 140 mmol/L (136-145); Total Bilirubin 0.2 mg/dL (0.15-1.2); Total Protein 6.8 g/dL (6.6-8.7)
[2024-11-02 20:40] VITALS: BP 136/103; PULSE 83; RESP 18; TEMP 36.6; O2SAT 97
[2024-11-03] MEDS: nicotine 4 mg lozenge MUCOUS MEM ×7 (02:28→19:35)
[2024-11-03] MEDS: acetaminophen 325 mg Tablet 650 MG PO ×2 (02:51→08:22)
[2024-11-03 06:00] VITALS: RESP 16
--- NOTE | 2024-11-03 06:43 | PC.NURSE ---
pt finally resting didnt not get vitals per nurse
[2024-11-03 07:57] VITALS: BP 112/81
[2024-11-03] MEDS: losartan 50 mg Tablet 25 MG PO (07:57)
[2024-11-03] MEDS: paliperidone ER 6 mg Tablet PO (08:00)
[2024-11-03 08:02] VITALS: BP 112/81; PULSE 96; RESP 16; TEMP 36.3; O2SAT 96
[2024-11-03 09:31] LABS: Hepatitis A Antibody IgM Non-Reactive (Nonreactive); Hepatitis B Core AB, Total Non-Reactive (Nonreactive); Hepatitis B Surface AB 23.5 (11.5-1000); Hepatitis B Surface Antigen Non-Reactive (Nonreactive); Hepatitis C Virus Antibody Non-Reactive (Nonreactive)
--- NOTE | 2024-11-03 12:41 | P.NPUPN_ITS ---
Subjective NPU 2 Subjective: Patient presented today reporting that he is fine. He continues to be a pleasant member of the inpatient unit without any challenges per staff reports and direct observation. He continues to pace the hallway and pat on his abdomen per staff reports and direct observation. He denies any side effects to the medication. Mental Status Exam 2 MSE Comments: This is an obese white male in hospital scrubs with limited grooming and eye contact. No abnormal movements except for mild psychomotor activation today. Patient with significant pacing as well and he continues to touch his fingers repeatedly on his stomach while walking aimlessly through the hallway. He was superfically cooperative with exam with laissez faire attitude. His speech remained productive. Mood described as good. Affect was odd but congruent. Thought process was linear but very superficial. Thought contact: patient denies suicidal or homicidal ideation, There were prominent bizarre delusions appreciated, multiple in nature. Patient denied auditory or visual hallucinations. Attention and concentration appeared intact and memory appeared unreliable but none were formally tested. Patient is alert and oriented times person and place and time. Insight and judgment are poor. Impulse control: limited. Vitals/I&O/Wt Last Vital Signs Temp 97.4 F L 11/03/24 08:02 Pulse 96 11/03/24 08:02 Resp 16 11/03/24 08:02 BP 112/81 11/03/24 08:02 Pulse Ox 96 11/03/24 08:02 O2 Del Method Room Air 11/03/24 08:02 Data NPU 11/02/24 19:37 11/02/24 19:37 A&P Assessment and plan (1) Schizophrenia, acute: (2) Psychotic disorder: (3) Depression: Plan This is a 39-year-old white male involuntarily hospitalized with decline in functioning at home with worsening psychosis currently on no medications at this time. He appears abstinent from illicit drugs and alcohol at this time. 1.? ? Encouraged individual, group and milieu therapy. ?2. ? We will attempt to gather collateral information from previous providers ?3. ? TO-15 minute checks on the unit. ?4. ? Recommend sober living treatment at the highest level of care to which the patient is willing to commit. 5. Patient received both IM 234mg, 156mg on 09/06/24 and 09/13/24 respectively. Still remains psychotic, Continue Latuda 40mg at 7Pm after dinner with Haldol 5mg IM if patient refuses oral supplementation. Increased Latuda to 120 mg at 7 PM on 10/21/24. Invega injection due 10/11/2024. Invega injection given next injection due 11/10/2024. Increase the Invega to 234 mg injection and add oral Invega 6 mg p.o. daily until the next injection is given on 11/10/2024. 6. Patient now placed on another [address]. We will file for 90-day hold on Wednesday and the goal is that hopefully based on what we are hearing he could be out of here possibly in 2 weeks as we have a facility evaluating him. 7. Guardianship may be required by this facility as we are awaiting a date for this filing by sister-filing COMPLETED. Involuntary Hold Information 2 96 Hour Hold: 96 Hour Involuntary Admission: Yes 96 Hour Hold Ending Date: 09/04/24 96 Hour Hold Ending Time: 16:30 Other Hold: Hold End Date: 09/27/27 Attestations NPU 2 Medical Necessity Statement*: Inpatient hospitalization is medically necessary and the clinically appropriate intervention at this time. We will monitor/initiate medications and make changes as indicated. Likely length of stay may be greater than 14 days as guardianship/placement are managed. Coding Level of Care Code Acute Code for [facility] Fwd Diagnoses Schizophrenia, acute F23 Psychotic disorder F29 Depression F32.A
[2024-11-03 14:00] VITALS: BP 130/77; PULSE 99; RESP 16; TEMP 36.4; O2SAT 95
[2024-11-03] MEDS: lurasidone 80 mg Tablet 120 MG PO (17:55)
[2024-11-03 20:59] VITALS: BP 110/63; PULSE 111; RESP 18; TEMP 36.4; O2SAT 98
[2024-11-04] MEDS: nicotine 4 mg lozenge MUCOUS MEM ×8 (02:21→18:52)
[2024-11-04 06:00] VITALS: BP 119/61; PULSE 85; RESP 18; O2SAT 96
[2024-11-04] MEDS: ammonium lactate lotion 226 gm Btl 1 APPLIC TOPICAL (07:24)
--- NOTE | 2024-11-04 08:23 | W.PM.NPUPNS ---
Subjective NPU Subjective: Patient presented today reporting that he is doing better. He continues to be a positive member of the inpatient unit without any concerns per staff reports and direct observation. He continues to pace the hallway and pat on his abdomen per staff reports and direct observation. He denies any side effects to the medication. Mental Status Exam MSE Comments: This is an obese white male in hospital scrubs with limited grooming and eye contact. No abnormal movements except for mild psychomotor activation today. Patient with significant pacing as well and he continues to touch his fingers repeatedly on his stomach while walking aimlessly through the hallway. He was superfically cooperative with exam with laissez faire attitude. His speech remained productive. Mood described as good. Affect was odd but congruent. Thought process was linear but very superficial. Thought contact: patient denies suicidal or homicidal ideation, There were prominent bizarre delusions appreciated, multiple in nature. Patient denied auditory or visual hallucinations. Attention and concentration appeared intact and memory appeared unreliable but none were formally tested. Patient is alert and oriented times person and place and time. Insight and judgment are poor. Impulse control: limited. Vitals/I&O/Wt Last Vital Signs Temp 97.5 F L 11/03/24 20:59 Pulse 85 11/04/24 06:00 Resp 18 11/04/24 06:00 BP 119/61 11/04/24 06:00 Pulse Ox 96 11/04/24 06:00 O2 Del Method Room Air 11/04/24 06:00 Data NPU 11/02/24 19:37 11/02/24 19:37 A&P Assessment and plan (1) Schizophrenia, acute: (2) Psychotic disorder: (3) Depression: Plan This is a 39-year-old white male involuntarily hospitalized with decline in functioning at home with worsening psychosis currently on no medications at this time. He appears abstinent from illicit drugs and alcohol at this time. 1.? ? Encouraged individual, group and milieu therapy. ?2. ? We will attempt to gather collateral information from previous providers ?3. ? TO-15 minute checks on the unit. ?4. ? Recommend sober living treatment at the highest level of care to which the patient is willing to commit. 5. Patient received both IM 234mg, 156mg on 09/06/24 and 09/13/24 respectively. Still remains psychotic, Continue Latuda 40mg at 7Pm after dinner with Haldol 5mg IM if patient refuses oral supplementation. Increased Latuda to 120 mg at 7 PM on 10/21/24. Invega injection due 10/11/2024. Invega injection given next injection due 11/10/2024. Increase the Invega to 234 mg injection and add oral Invega 6 mg p.o. daily until the next injection is given on 11/10/2024. 6. Patient now placed on another [address]. We will file for 90-day hold on Wednesday and the goal is that hopefully based on what we are hearing he could be out of here possibly in 2 weeks as we have a facility evaluating him. 7. Guardianship may be required by this facility as we are awaiting a date for this filing by sister-filing COMPLETED. Involuntary Hold Information 96 Hour Hold: 96 Hour Involuntary Admission: Yes 96 Hour Hold Ending Date: 09/04/24 96 Hour Hold Ending Time: 16:30 Other Hold: Hold End Date: 09/27/27 Attestations NPU Medical Necessity Statement*: Inpatient hospitalization is medically necessary and the clinically appropriate intervention at this time. We will monitor/initiate medications and make changes as indicated. Likely length of stay may be greater than 14 days as guardianship/placement are managed. Coding Level of Care Code Acute Code for [facility] Fwd Diagnoses Schizophrenia, acute F23 Psychotic disorder F29 Depression F32.A
[2024-11-04] MEDS: paliperidone ER 6 mg Tablet PO (09:29)
[2024-11-04 14:00] VITALS: BP 87/55; PULSE 88; RESP 16; TEMP 36.7; O2SAT 96
[2024-11-04] MEDS: acetaminophen 325 mg Tablet 650 MG PO (14:57)
[2024-11-04] MEDS: lurasidone 80 mg Tablet 120 MG PO (15:59)
[2024-11-04 19:41] VITALS: BP 145/103; PULSE 97; RESP 18; TEMP 36.7; O2SAT 95
[2024-11-05] MEDS: nicotine 4 mg lozenge MUCOUS MEM ×9 (01:42→19:12)
[2024-11-05 05:49] VITALS: BP 159/79; PULSE 85; RESP 16; TEMP 36.5; O2SAT 96
[2024-11-05 07:59] VITALS: BP 159/79
[2024-11-05] MEDS: losartan 50 mg Tablet 25 MG PO (07:59)
[2024-11-05] MEDS: ammonium lactate lotion 226 gm Btl 1 APPLIC TOPICAL (07:59)
[2024-11-05] MEDS: paliperidone ER 6 mg Tablet PO (07:59)
--- NOTE | 2024-11-05 08:40 | P.NPUPN_ITS ---
Subjective NPU 2 Subjective: Patient presented today reporting that things are good. He continues to be interactive and positive in the conversations. He continues to have significant grandiose delusions and his interactions often inserting that he had some kind of significant success and what ever area came up. If you are talking about health he might talk about being a surgeon or physician. If sports comes up he was talking about being a professional and that sport at some point. He often will speak boastful in a somewhat confabulation type approach. He denied any side effects to his medication. Mental Status Exam 2 MSE Comments: This is an obese white male in hospital scrubs with adequate grooming and eye contact. No abnormal movements except for mild psychomotor agitation today. Patient with significant pacing as well and he continues to touch his fingers repeatedly on his stomach while walking aimlessly through the hallway. He was cooperative with exam with laissez faire attitude. His speech remained productive. Mood described as good. Affect was odd but congruent. Thought process was linear but very superficial. Thought contact: patient denies suicidal or homicidal ideation, There were prominent bizarre delusions appreciated, multiple in nature. Patient denied auditory or visual hallucinations. Attention and concentration appeared intact and memory appeared unreliable but none were formally tested. Patient is alert and oriented times person and place and time. Insight and judgment are poor. Impulse control: limited. Vitals/I&O/Wt Last Vital Signs Temp 97.7 F 11/05/24 05:49 Pulse 85 11/05/24 05:49 Resp 16 11/05/24 05:49 BP 159/79 11/05/24 07:59 Pulse Ox 96 11/05/24 05:49 O2 Del Method Room Air 11/04/24 14:00 Data NPU 11/02/24 19:37 11/02/24 19:37 A&P Assessment and plan (1) Schizophrenia, acute: (2) Psychotic disorder: (3) Depression: Plan This is a 39-year-old white male involuntarily hospitalized with decline in functioning at home with worsening psychosis currently on no medications at this time. He appears abstinent from illicit drugs and alcohol at this time. 1.? ? Encouraged individual, group and milieu therapy. ?2. ? We will attempt to gather collateral information from previous providers ?3. ? TO-15 minute checks on the unit. ?4. ? Recommend sober living treatment at the highest level of care to which the patient is willing to commit. 5. Patient received both IM 234mg, 156mg on 09/06/24 and 09/13/24 respectively. Still remains psychotic, Continue Latuda 40mg at 7Pm after dinner with Haldol 5mg IM if patient refuses oral supplementation. Increased Latuda to 120 mg at 7 PM on 10/21/24. Invega injection due 10/11/2024. Invega injection given next injection due 11/10/2024. Increase the Invega to 234 mg injection and add oral Invega 6 mg p.o. daily until the next injection is given on 11/10/2024. 6. Patient now placed on another [address]. We will file for 90-day hold on Wednesday and the goal is that hopefully based on what we are hearing he could be out of here possibly in 2 weeks as we have a facility evaluating him. 7. Guardianship may be required by this facility as we are awaiting a date for this filing by sister-filing COMPLETED. Involuntary Hold Information 2 96 Hour Hold: 96 Hour Involuntary Admission: Yes 96 Hour Hold Ending Date: 09/04/24 96 Hour Hold Ending Time: 16:30 Other Hold: Hold End Date: 09/27/27 Attestations NPU 2 Medical Necessity Statement*: Inpatient hospitalization is medically necessary and the clinically appropriate intervention at this time. We will monitor/initiate medications and make changes as indicated. Likely length of stay may be greater than 14 days as guardianship/placement are managed. Coding Level of Care Code Acute Code for [facility] Fwd Diagnoses Schizophrenia, acute F23 Psychotic disorder F29 Depression F32.A
[2024-11-05 14:00] VITALS: BP 131/81; PULSE 96; RESP 16; TEMP 36.9; O2SAT 96
[2024-11-05] MEDS: lurasidone 80 mg Tablet 120 MG PO (16:52)
[2024-11-05 20:24] VITALS: BP 124/69; PULSE 91; RESP 18; TEMP 36.9; O2SAT 96
[2024-11-06] MEDS: nicotine 4 mg lozenge MUCOUS MEM ×7 (05:58→20:04)
[2024-11-06 06:00] VITALS: BP 112/81; PULSE 104; RESP 18; TEMP 37.1; O2SAT 94
[2024-11-06 07:56] VITALS: BP 112/81
[2024-11-06] MEDS: losartan 50 mg Tablet 25 MG PO (07:56)
[2024-11-06] MEDS: paliperidone ER 6 mg Tablet PO (07:56)
[2024-11-06] MEDS: ammonium lactate lotion 226 gm Btl 1 APPLIC TOPICAL (07:59)
[2024-11-06 14:00] VITALS: BP 110/67; PULSE 119; RESP 18; TEMP 36.7; O2SAT 95
--- NOTE | 2024-11-06 15:58 | P.NPUPN_ITS ---
Subjective NPU 2 Subjective: Patient presented reporting that he understands is a 90-day hold hearing tomorrow. This appeared to get him very anxious per staff reports and direct observation. 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 He spoke to that as we discussed about guardianship. He denied any side effects to medications. Mental Status Exam 2 MSE Comments: This is an obese white male in hospital scrubs with adequate grooming and eye contact. No abnormal movements except for mild psychomotor agitation today. Patient with significant pacing as well and he continues to touch his fingers repeatedly on his stomach while walking aimlessly through the hallway. He was cooperative with exam with laissez faire attitude. His speech remained productive. Mood described as good. Affect was odd but congruent. Thought process was linear but very superficial. Thought contact: patient denies suicidal or homicidal ideation, There were prominent bizarre delusions appreciated, multiple in nature. Patient denied auditory or visual hallucinations. Attention and concentration appeared intact and memory appeared unreliable but none were formally tested. Patient is alert and oriented times person and place and time. Insight and judgment are poor. Impulse control: limited. Vitals/I&O/Wt Last Vital Signs Temp 98.0 F 11/06/24 14:00 Pulse 119 H 11/06/24 14:00 Resp 18 11/06/24 14:00 BP 110/67 11/06/24 14:00 Pulse Ox 95 11/06/24 14:00 O2 Del Method Room Air 11/05/24 14:00 Data NPU 11/02/24 19:37 11/02/24 19:37 A&P Assessment and plan (1) Schizophrenia, acute: (2) Psychotic disorder: (3) Depression: Plan This is a 39-year-old white male involuntarily hospitalized with decline in functioning at home with worsening psychosis currently on no medications at this time. He appears abstinent from illicit drugs and alcohol at this time. 1.? ? Encouraged individual, group and milieu therapy. ?2. ? We will attempt to gather collateral information from previous providers ?3. ? TO-15 minute checks on the unit. ?4. ? Recommend sober living treatment at the highest level of care to which the patient is willing to commit. 5. Patient received both IM 234mg, 156mg on 09/06/24 and 09/13/24 respectively. Still remains psychotic, Continue Latuda 40mg at 7Pm after dinner with Haldol 5mg IM if patient refuses oral supplementation. Increased Latuda to 120 mg at 7 PM on 10/21/24. Invega injection due 10/11/2024. Invega injection given next injection due 11/10/2024. Increase the Invega to 234 mg injection and add oral Invega 6 mg p.o. daily until the next injection is given on 11/10/2024. 6. Patient now placed on another [address]. We filed for 90-day hold on Wednesday and the goal is that hopefully based on what we are hearing he could be out of here possibly in 2 weeks as we have a facility evaluating him. 90-day-hold hearing tomorrow at 2 PM. 7. Guardianship may be required by this facility as we are awaiting a date for this filing by sister-filing COMPLETED. Involuntary Hold Information 2 96 Hour Hold: 96 Hour Involuntary Admission: Yes 96 Hour Hold Ending Date: 09/04/24 96 Hour Hold Ending Time: 16:30 Other Hold: Hold End Date: 09/27/27 Attestations NPU 2 Medical Necessity Statement*: Inpatient hospitalization is medically necessary and the clinically appropriate intervention at this time. We will monitor/initiate medications and make changes as indicated. Likely length of stay may be greater than 14 days as guardianship/placement are managed. Coding Level of Care Code Acute Code for [facility] Fwd Diagnoses Schizophrenia, acute F23 Psychotic disorder F29 Depression F32.A
[2024-11-06] MEDS: lurasidone 80 mg Tablet 120 MG PO (18:03)
[2024-11-06 21:09] VITALS: BP 119/75; PULSE 112; RESP 18; TEMP 36.6; O2SAT 96
[2024-11-07 06:15] VITALS: BP 115/66; PULSE 84; RESP 16; TEMP 37; O2SAT 98
[2024-11-07] MEDS: nicotine 4 mg lozenge MUCOUS MEM ×7 (06:16→22:01)
[2024-11-07] MEDS: ammonium lactate lotion 226 gm Btl 1 APPLIC TOPICAL ×2 (08:38→17:03)
[2024-11-07] MEDS: paliperidone ER 6 mg Tablet PO (08:39)
[2024-11-07 14:00] VITALS: BP 106/62; PULSE 97; RESP 16; TEMP 36.8; O2SAT 96
--- NOTE | 2024-11-07 16:17 | W.PM.NPUPNS ---
Subjective NPU Subjective: Patient presented today reporting things are going okay. He endorsed that he was aware of the hearing tomorrow and continues to be unsure of why he would need a guardian. We discussed that her guardian does not have to be someone that is functioning in the day-to-day but just making sure overall that he is in a positive situation and functioning at his highest level. He continued to meet those discussions with significant grandiosity about his accomplishments throughout his life. He continues to be adherent with his medication and presents no problems on the unit. He denied any side effects to his medication. Mental Status Exam MSE Comments: This is an obese white male in hospital scrubs with adequate grooming and eye contact. No abnormal movements except for mild psychomotor agitation today. Patient with significant pacing as well and he continues to touch his fingers repeatedly on his stomach while walking aimlessly through the hallway. He was cooperative with exam with laissez faire attitude. His speech remained productive. Mood described as good. Affect was odd but congruent. Thought process was linear but very superficial. Thought contact: patient denies suicidal or homicidal ideation, There were prominent bizarre delusions appreciated, multiple in nature. Patient denied auditory or visual hallucinations. Attention and concentration appeared intact and memory appeared unreliable but none were formally tested. Patient is alert and oriented times person and place and time. Insight and judgment are poor. Impulse control: limited. Vitals/I&O/Wt Last Vital Signs Temp 98.3 F 11/07/24 14:00 Pulse 97 11/07/24 14:00 Resp 16 11/07/24 14:00 BP 106/62 11/07/24 14:00 Pulse Ox 96 11/07/24 14:00 O2 Del Method Room Air 11/07/24 14:00 Data NPU 11/02/24 19:37 11/02/24 19:37 A&P Assessment and plan (1) Schizophrenia, acute: (2) Psychotic disorder: (3) Depression: Plan This is a 39-year-old white male involuntarily hospitalized with decline in functioning at home with worsening psychosis currently on no medications at this time. He appears abstinent from illicit drugs and alcohol at this time. 1.? ? Encouraged individual, group and milieu therapy. ?2. ? We will attempt to gather collateral information from previous providers ?3. ? TO-15 minute checks on the unit. ?4. ? Recommend sober living treatment at the highest level of care to which the patient is willing to commit. 5. Patient received both IM 234mg, 156mg on 09/06/24 and 09/13/24 respectively. Still remains psychotic, Continue Latuda 40mg at 7Pm after dinner with Haldol 5mg IM if patient refuses oral supplementation. Increased Latuda to 120 mg at 7 PM on 10/21/24. Invega injection due 10/11/2024. Invega injection given next injection due 11/10/2024. Increase the Invega to 234 mg injection and add oral Invega 6 mg p.o. daily until the next injection is given on 11/10/2024. 6. Patient now placed on another [address]. We filed for 90-day hold on Wednesday and the goal is that hopefully based on what we are hearing he could be out of here possibly in 2 weeks as we have a facility evaluating him. 90-day-hold hearing on 11/08/2024 at 2 PM. 7. Guardianship may be required by this facility as we are awaiting a date for this filing by sister-filing COMPLETED. PDMP PDMP Reviewed: Not Reviewed Involuntary Hold Information 96 Hour Hold: 96 Hour Involuntary Admission: Yes 96 Hour Hold Ending Date: 09/04/24 96 Hour Hold Ending Time: 16:30 Other Hold: Hold End Date: 09/27/27 Attestations NPU Medical Necessity Statement*: Inpatient hospitalization is medically necessary and the clinically appropriate intervention at this time. We will monitor/initiate medications and make changes as indicated. Likely length of stay may be greater than 14 days as guardianship/placement are managed. Coding Level of Care Code Acute Code for [facility] Fwd Diagnoses Schizophrenia, acute F23 Psychotic disorder F29 Depression F32.A
[2024-11-07] MEDS: lurasidone 80 mg Tablet 120 MG PO (17:04)
[2024-11-07 20:23] VITALS: BP 106/72; PULSE 114; RESP 20; TEMP 36.9; O2SAT 95
[2024-11-08 06:00] VITALS: BP 120/70; PULSE 77; RESP 14; TEMP 36.7; O2SAT 97
[2024-11-08] MEDS: nicotine 4 mg lozenge MUCOUS MEM ×6 (07:35→19:03)
[2024-11-08] MEDS: paliperidone ER 6 mg Tablet PO (08:50)
[2024-11-08 08:52] VITALS: BP 121/85
[2024-11-08 08:54] VITALS: BP 121/85; PULSE 109; RESP 17; TEMP 36.4; O2SAT 95
[2024-11-08 14:00] VITALS: BP 112/80; PULSE 105; RESP 16; TEMP 37; O2SAT 94
--- NOTE | 2024-11-08 14:16 | PC.NURSE ---
1355 Pt escorted off the unit to attend court with the [facility]'s deputy.
--- NOTE | 2024-11-08 14:54 | PC.NURSE ---
1454 Pt escorted back to the unit with the [facility]'s deputy.
[2024-11-08] MEDS: lurasidone 80 mg Tablet 120 MG PO (17:24)
--- NOTE | 2024-11-08 17:47 | W.PM.NPUPNS ---
Subjective NPU Subjective: Patient presented today reporting things are going fine. We went to his 90-day hold hearing and for the most part he was under control though he did make some comments out of line from his seat. He ultimately did not attempt to testify and excepted that his situation was to stay after this lyric writer's testimony. Otherwise he reported that he is doing fine and he is just hopeful that things move forward quickly as we continue to wait for the guardianship hearing date. He denied any side effects to this medication. Mental Status Exam MSE Comments: This is an obese white male in hospital scrubs with adequate grooming and eye contact. No abnormal movements except for mild psychomotor agitation today. Patient with significant pacing as well and he continues to touch his fingers repeatedly on his stomach while walking aimlessly through the hallway. He was cooperative with exam with laissez faire attitude. His speech remained productive. Mood described as good. Affect was odd but congruent. Thought process was linear but very superficial. Thought contact: patient denies suicidal or homicidal ideation, There were prominent bizarre delusions appreciated, multiple in nature. Patient denied auditory or visual hallucinations. Attention and concentration appeared intact and memory appeared unreliable but none were formally tested. Patient is alert and oriented times person and place and time. Insight and judgment are poor. Impulse control: limited. Vitals/I&O/Wt Last Vital Signs Temp 98.6 F 11/08/24 14:00 Pulse 105 H 11/08/24 14:00 Resp 16 11/08/24 14:00 BP 112/80 11/08/24 14:00 Pulse Ox 94 11/08/24 14:00 O2 Del Method Room Air 11/08/24 14:00 Data NPU 11/02/24 19:37 11/02/24 19:37 A&P Assessment and plan (1) Schizophrenia, acute: (2) Psychotic disorder: (3) Depression: Plan This is a 39-year-old white male involuntarily hospitalized with decline in functioning at home with worsening psychosis currently on no medications at this time. He appears abstinent from illicit drugs and alcohol at this time. 1.? ? Encouraged individual, group and milieu therapy. ?2. ? We will attempt to gather collateral information from previous providers ?3. ? TO-15 minute checks on the unit. ?4. ? Recommend sober living treatment at the highest level of care to which the patient is willing to commit. 5. Patient received both IM 234mg, 156mg on 09/06/24 and 09/13/24 respectively. Still remains psychotic, Continue Latuda 40mg at 7Pm after dinner with Haldol 5mg IM if patient refuses oral supplementation. Increased Latuda to 120 mg at 7 PM on 10/21/24. Invega injection due 10/11/2024. Invega injection given next injection due 11/10/2024. Increase the Invega to 234 mg injection and add oral Invega 6 mg p.o. daily until the next injection is given on 11/10/2024. 6. Patient now placed on another [address]. We filed for 90-day hold on Wednesday and the goal is that hopefully based on what we are hearing he could be out of here possibly in 2 weeks as we have a facility evaluating him. 90-day-hold hearing on 11/08/2024 at 2 PM. 90-day hold granted 11/08/2024. 7. Guardianship may be required by this facility as we are awaiting a date for this filing by sister-filing COMPLETED. PDMP PDMP Reviewed: Not Reviewed Involuntary Hold Information 96 Hour Hold: 96 Hour Involuntary Admission: Yes 96 Hour Hold Ending Date: 09/04/24 96 Hour Hold Ending Time: 16:30 Other Hold: Hold End Date: 09/27/27 Attestations NPU Medical Necessity Statement*: Inpatient hospitalization is medically necessary and the clinically appropriate intervention at this time. We will monitor/initiate medications and make changes as indicated. Likely length of stay may be greater than 14 days as guardianship/placement are managed. Coding Level of Care Code Acute Code for [facility] Fwd Diagnoses Schizophrenia, acute F23 Psychotic disorder F29 Depression F32.A
[2024-11-08 20:35] VITALS: BP 113/75; PULSE 105; RESP 18; TEMP 36.6; O2SAT 95
--- NOTE | 2024-11-09 00:26 | PC.SOCIAL ---
PATIENT ASKED THAT I PASS ON THAT HE WANTS TO STAY HERE .
[2024-11-09] MEDS: nicotine 4 mg lozenge MUCOUS MEM ×8 (02:54→20:17)
[2024-11-09] MEDS: acetaminophen 325 mg Tablet 650 MG PO (03:48)
[2024-11-09 06:00] VITALS: BP 117/66; PULSE 81; RESP 18; TEMP 36.8; O2SAT 97
[2024-11-09] MEDS: paliperidone ER 6 mg Tablet PO (08:21)
--- NOTE | 2024-11-09 11:33 | P.NPUPN_ITS ---
Subjective NPU 2 Subjective: Patient presented today reporting that things were okay. He continued to pace the halls and pad on his abdomen per staff reports and direct observation. He denied any problems with the increase in the Invega. We discussed that he would get his next monthly injection of Invega at the increased dose of 234 mg IM tomorrow. He denied any side effects to the medication. Mental Status Exam 2 MSE Comments: This is an obese white male in hospital scrubs with adequate grooming and eye contact. No abnormal movements except for mild psychomotor agitation today. Patient with significant pacing as well and he continues to touch his fingers repeatedly on his stomach while walking aimlessly through the hallway. He was cooperative with exam with laissez faire attitude. His speech remained productive. Mood described as good. Affect was odd but congruent. Thought process was linear but very superficial. Thought contact: patient denies suicidal or homicidal ideation, There were prominent bizarre delusions appreciated, multiple in nature. Patient denied auditory or visual hallucinations. Attention and concentration appeared intact and memory appeared unreliable but none were formally tested. Patient is alert and oriented times person and place and time. Insight and judgment are poor. Impulse control: limited. Vitals/I&O/Wt Last Vital Signs Temp 98.2 F 11/09/24 06:00 Pulse 81 11/09/24 06:00 Resp 18 11/09/24 06:00 BP 117/66 11/09/24 06:00 Pulse Ox 97 11/09/24 06:00 O2 Del Method Room Air 11/09/24 06:00 Data NPU 11/02/24 19:37 11/02/24 19:37 A&P Assessment and plan (1) Schizophrenia, acute: (2) Psychotic disorder: (3) Depression: Plan This is a 39-year-old white male involuntarily hospitalized with decline in functioning at home with worsening psychosis currently on no medications at this time. He appears abstinent from illicit drugs and alcohol at this time. 1.? ? Encouraged individual, group and milieu therapy. ?2. ? We will attempt to gather collateral information from previous providers ?3. ? TO-15 minute checks on the unit. ?4. ? Recommend sober living treatment at the highest level of care to which the patient is willing to commit. 5. Patient received both IM 234mg, 156mg on 09/06/24 and 09/13/24 respectively. Still remains psychotic, Continue Latuda 40mg at 7Pm after dinner with Haldol 5mg IM if patient refuses oral supplementation. Increased Latuda to 120 mg at 7 PM on 10/21/24. Invega injection due 10/11/2024. Invega injection given next injection due 11/10/2024. Increase the Invega to 234 mg injection and add oral Invega 6 mg p.o. daily until the next injection is given on 11/10/2024. 6. Patient now placed on another [address]. We filed for 90-day hold on Wednesday and the goal is that hopefully based on what we are hearing he could be out of here possibly in 2 weeks as we have a facility evaluating him. 90-day-hold hearing on 11/08/2024 at 2 PM. 90-day hold granted 11/08/2024. 7. Guardianship may be required by this facility as we are awaiting a date for this filing by sister-filing COMPLETED. PDMP PDMP Reviewed: Not Reviewed Involuntary Hold Information 2 96 Hour Hold: 96 Hour Involuntary Admission: Yes 96 Hour Hold Ending Date: 09/04/24 96 Hour Hold Ending Time: 16:30 Other Hold: Hold End Date: 09/27/27 Attestations NPU 2 Medical Necessity Statement*: Inpatient hospitalization is medically necessary and the clinically appropriate intervention at this time. We will monitor/initiate medications and make changes as indicated. Likely length of stay may be greater than 14 days as guardianship/placement are managed. Coding Level of Care Code Acute Code for [facility] Fw Diagnoses Schizophrenia, acute F23 Psychotic disorder F29 Depression F32.A
[2024-11-09 14:00] VITALS: BP 164/92; PULSE 101; RESP 16; TEMP 36.4; O2SAT 95
[2024-11-09] MEDS: lurasidone 80 mg Tablet 120 MG PO (16:14)
[2024-11-09 21:52] VITALS: BP 119/72; PULSE 81; RESP 17; TEMP 37; O2SAT 97
[2024-11-10 03:39] VITALS: BP 113/82; PULSE 109; RESP 18; TEMP 36.6; O2SAT 94
[2024-11-10] MEDS: nicotine 4 mg lozenge MUCOUS MEM ×7 (03:39→17:35)
[2024-11-10] MEDS: acetaminophen 325 mg Tablet 650 MG PO (03:51)
[2024-11-10 08:31] VITALS: BP 113/82
[2024-11-10] MEDS: paliperidone ER 6 mg Tablet PO (08:31)
[2024-11-10] MEDS: losartan 50 mg Tablet 25 MG PO (08:31)
[2024-11-10] MEDS: paliperidone palmitate 234 mg Syringe IM (08:31)
--- NOTE | 2024-11-10 13:21 | P.NPUPN_ITS ---
Subjective NPU 2 Subjective: Patient presented today reporting that things are going okay. He was having some difficulties with feeling irritable per staff reports and direct observation as any comment that was contrary to his grandiose perceptions was not taken lightly but he was not overly disagreeable in the disagreement. He continued to report his awaiting his hearing and he is aware of that. He denied any side effects to the medication. Mental Status Exam 2 MSE Comments: This is an obese white male in hospital scrubs with adequate grooming and eye contact. No abnormal movements except for mild psychomotor agitation today. Patient with significant pacing as well and he continues to touch his fingers repeatedly on his stomach while walking aimlessly through the hallway. He was cooperative with exam with laissez faire attitude. His speech remained productive. Mood described as good. Affect was odd and irritable. Thought process was linear but very superficial. Thought contact: patient denies suicidal or homicidal ideation, There were prominent bizarre delusions appreciated, multiple in nature. Patient denied auditory or visual hallucinations. Attention and concentration appeared intact and memory appeared unreliable but none were formally tested. Patient is alert and oriented times person and place and time. Insight and judgment are poor. Impulse control: limited. Vitals/I&O/Wt Last Vital Signs Temp 97.9 F 11/10/24 03:39 Pulse 109 H 11/10/24 03:39 Resp 18 11/10/24 03:39 BP 113/82 11/10/24 08:31 Pulse Ox 94 11/10/24 03:39 O2 Del Method Room Air 11/10/24 03:39 Data NPU 11/02/24 19:37 11/02/24 19:37 A&P Assessment and plan (1) Schizophrenia, acute: (2) Psychotic disorder: (3) Depression: Plan This is a 39-year-old white male involuntarily hospitalized with decline in functioning at home with worsening psychosis currently on no medications at this time. He appears abstinent from illicit drugs and alcohol at this time. 1.? ? Encouraged individual, group and milieu therapy. ?2. ? We will attempt to gather collateral information from previous providers ?3. ? TO-15 minute checks on the unit. ?4. ? Recommend sober living treatment at the highest level of care to which the patient is willing to commit. 5. Patient received both IM 234mg, 156mg on 09/06/24 and 09/13/24 respectively. Still remains psychotic, Continue Latuda 40mg at 7Pm after dinner with Haldol 5mg IM if patient refuses oral supplementation. Increased Latuda to 120 mg at 7 PM on 10/21/24. Invega injection due 10/11/2024. Invega injection given next injection due 11/10/2024. Increase the Invega to 234 mg injection and add oral Invega 6 mg p.o. daily until the next injection given today on 11/10/2024. 6. Patient now placed on another [address]. We filed for 90-day hold on Wednesday and the goal is that hopefully based on what we are hearing he could be out of here possibly in 2 weeks as we have a facility evaluating him. 90-day-hold hearing on 11/08/2024 at 2 PM. 90-day hold granted 11/08/2024. 7. Guardianship may be required by this facility as we are awaiting a date for this filing by sister-filing COMPLETED. PDMP PDMP Reviewed: Not Reviewed Involuntary Hold Information 2 96 Hour Hold: 96 Hour Involuntary Admission: Yes 96 Hour Hold Ending Date: 09/04/24 96 Hour Hold Ending Time: 16:30 Other Hold: Hold End Date: 09/27/27 Attestations NPU 2 Medical Necessity Statement*: Inpatient hospitalization is medically necessary and the clinically appropriate intervention at this time. We will monitor/initiate medications and make changes as indicated. Likely length of stay may be greater than 14 days as guardianship/placement are managed. Coding Level of Care Code Acute Code for [facility] Fw Diagnoses Schizophrenia, acute F23 Psychotic disorder F29 Depression F32.A
[2024-11-10 14:00] VITALS: BP 142/90; PULSE 87; RESP 16; TEMP 36.6; O2SAT 96
[2024-11-10] MEDS: lurasidone 80 mg Tablet 120 MG PO (17:09)
[2024-11-10 22:00] VITALS: BP 102/59; PULSE 82; RESP 18; TEMP 36.7; O2SAT 95
[2024-11-11] MEDS: nicotine 4 mg lozenge MUCOUS MEM ×7 (01:31→19:39)
[2024-11-11 06:00] VITALS: BP 109/66; PULSE 71; RESP 17; O2SAT 96
--- NOTE | 2024-11-11 07:13 | P.NPUPN_ITS ---
Subjective NPU 2 Subjective: Patient presented today reporting that things are okay. 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 Otherwise he continues to focus on wanting to leave sooner rather than later. He denied any side effects to his medications. Mental Status Exam 2 MSE Comments: This is an obese white male in hospital scrubs with adequate grooming and eye contact. No abnormal movements except for mild psychomotor agitation today. Patient with significant pacing as well and he continues to touch his fingers repeatedly on his stomach while walking aimlessly through the hallway. He was cooperative with exam with laissez faire attitude. His speech remained productive. Mood described as good. Affect was odd and irritable. Thought process was linear but very superficial. Thought contact: patient denies suicidal or homicidal ideation, There were prominent bizarre delusions appreciated, multiple in nature. Patient denied auditory or visual hallucinations. Attention and concentration appeared intact and memory appeared unreliable but none were formally tested. Patient is alert and oriented times person and place and time. Insight and judgment are poor. Impulse control: limited. Vitals/I&O/Wt Last Vital Signs Temp 98.1 F 11/10/24 22:00 Pulse 71 11/11/24 06:00 Resp 17 11/11/24 06:00 BP 109/66 11/11/24 06:00 Pulse Ox 96 11/11/24 06:00 O2 Del Method Room Air 11/10/24 14:00 Data NPU 11/02/24 19:37 11/02/24 19:37 A&P Assessment and plan (1) Schizophrenia, acute: (2) Psychotic disorder: (3) Depression: Plan This is a 39-year-old white male involuntarily hospitalized with decline in functioning at home with worsening psychosis currently on no medications at this time. He appears abstinent from illicit drugs and alcohol at this time. 1.? ? Encouraged individual, group and milieu therapy. ?2. ? We will attempt to gather collateral information from previous providers ?3. ? TO-15 minute checks on the unit. ?4. ? Recommend sober living treatment at the highest level of care to which the patient is willing to commit. 5. Patient received both IM 234mg, 156mg on 09/06/24 and 09/13/24 respectively. Still remains psychotic, Continue Latuda 40mg at 7Pm after dinner with Haldol 5mg IM if patient refuses oral supplementation. Increased Latuda to 120 mg at 7 PM on 10/21/24. Invega injection due 10/11/2024. Invega injection given next injection due 11/10/2024. Increase the Invega to 234 mg injection and add oral Invega 6 mg p.o. daily until the next injection given on 11/10/2024. Next injection by 12/10/2024. 6. Patient now placed on another [address]. We filed for 90-day hold on Wednesday and the goal is that hopefully based on what we are hearing he could be out of here possibly in 2 weeks as we have a facility evaluating him. 90-day-hold hearing on 11/08/2024 at 2 PM. 90-day hold granted 11/08/2024. 7. Guardianship may be required by this facility as we are awaiting a date for this filing by sister-filing COMPLETED. PDMP PDMP Reviewed: Not Reviewed Involuntary Hold Information 2 96 Hour Hold: 96 Hour Involuntary Admission: Yes 96 Hour Hold Ending Date: 09/04/24 96 Hour Hold Ending Time: 16:30 Other Hold: Hold End Date: 09/27/27 Attestations NPU 2 Medical Necessity Statement*: Inpatient hospitalization is medically necessary and the clinically appropriate intervention at this time. We will monitor/initiate medications and make changes as indicated. Likely length of stay may be greater than 14 days as guardianship/placement are managed. Coding Level of Care Code Acute Code for [facility] Fwd Diagnoses Schizophrenia, acute F23 Psychotic disorder F29 Depression F32.A
[2024-11-11 08:05] VITALS: BP 128/76
[2024-11-11] MEDS: paliperidone ER 6 mg Tablet PO (08:05)
[2024-11-11] MEDS: losartan 50 mg Tablet 25 MG PO (08:05)
[2024-11-11 14:00] VITALS: BP 103/55; PULSE 90; RESP 17; TEMP 36.6; O2SAT 96
[2024-11-11] MEDS: lurasidone 80 mg Tablet 120 MG PO (17:50)
--- NOTE | 2024-11-11 19:10 | PC.NURSE ---
This nurse has been with patient since 7am - patient mostly cooperative and easily redirected. 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 Patient compliant with medication. Patient did become agitated with evening medications stating that isn't latuda . Patient states the mountain services manager probably hacked the system and changed his medications. States he will be contacting the [employer] like he has had to do in the past to get this resolved. Patient calmed fairly quickly and is now back to pacing, mumbling to himself and tapping his stomach.
[2024-11-11 21:40] VITALS: BP 112/68; PULSE 87; RESP 18; TEMP 36.1; O2SAT 97
[2024-11-12] MEDS: nicotine 4 mg lozenge MUCOUS MEM ×10 (01:01→21:59)
[2024-11-12 06:00] VITALS: BP 119/63; PULSE 77; RESP 18; O2SAT 94
[2024-11-12] MEDS: paliperidone ER 6 mg Tablet PO (07:54)
[2024-11-12] MEDS: acetaminophen 325 mg Tablet 650 MG PO (08:27)
[2024-11-12 14:00] VITALS: BP 134/74; PULSE 98; RESP 18; O2SAT 96
--- NOTE | 2024-11-12 14:00 | P.NPUPN_ITS ---
Subjective NPU 2 Subjective: 39-year-old male with a history of schiz ophrenia or schizoaffective disorder currently on multiple psychotropic medications here in the hospital. The patient continued to remain grandiose and continue to state that he had various abilities and continued to revoke that he had special gifts that the was using to their benefit. He had continued to minimize the seriousness of him needing to be here in the hospital. There were no acts of aggression noted. He had been compliant with his oral medications. Mental Status Exam 2 MSE Comments: This is an obese white male in hospital scrubs with adequate grooming and eye contact. No abnormal movements except for mild psychomotor agitation today. Patient with significant pacing as well and he continues to touch his fingers repeatedly on his stomach while walking aimlessly through the hallway. He was cooperative with exam with laissez faire attitude. His speech remained productive. Mood described as great. Affect was odd and irritable. Thought process was linear but very superficial. Thought contact: patient denies suicidal or homicidal ideation, There were prominent bizarre delusions appreciated, multiple in nature. Patient denied auditory or visual hallucinations. Attention and concentration appeared intact and memory appeared unreliable but none were formally tested. Patient is alert and oriented times person and place and time. Insight and judgment are poor. Impulse control: limited. Vitals/I&O/Wt Last Vital Signs Temp 97.0 F L 11/11/24 21:40 Pulse 77 11/12/24 06:00 Resp 18 11/12/24 06:00 BP 119/63 11/12/24 06:00 Pulse Ox 94 11/12/24 06:00 O2 Del Method Room Air 11/10/24 14:00 Weight last 48 hrs Weight 127.459 kg Data NPU 11/02/24 19:37 11/02/24 19:37 A&P Assessment and plan (1) Schizophrenia, acute: (2) Psychotic disorder: (3) Depression: Plan This is a 39-year-old white male involuntarily hospitalized with decline in functioning at home with worsening psychosis currently on no medications at this time. He appears abstinent from illicit drugs and alcohol at this time. 1.? ? Encouraged individual, group and milieu therapy. ?2. ? We will attempt to gather collateral information from previous providers ?3. ? TO-15 minute checks on the unit. ?4. ? Recommend sober living treatment at the highest level of care to which the patient is willing to commit. 5. Patient received both IM 234mg, 156mg on 09/06/24 and 09/13/24 respectively. Still remains psychotic, no improvement on maximum dose of latuda. Will begin taper of latuda. Invega injection due 10/11/2024. Invega injection given next injection due 11/10/2024. Increase the Invega to 234 mg injection and add oral Invega 6 mg p.o. daily until the next injection given on 11/10/2024. Next injection by 12/10/2024. 6. Patient now placed on another [address]. We filed for 90-day hold on Wednesday and the goal is that hopefully based on what we are hearing he could be out of here possibly in 2 weeks as we have a facility evaluating him. 90-day-hold hearing on 11/08/2024 at 2 PM. 90-day hold granted 11/08/2024. 7. Guardianship may be required by this facility as we are awaiting a date for this filing by sister-filing COMPLETED. PDMP PDMP Reviewed: Not Reviewed Involuntary Hold Information 2 96 Hour Hold: 96 Hour Involuntary Admission: Yes 96 Hour Hold Ending Date: 09/04/24 96 Hour Hold Ending Time: 16:30 Other Hold: Hold End Date: 09/27/27 Attestations NPU 2 Medical Necessity Statement*: Inpatient hospitalization is medically necessary and the clinically appropriate intervention at this time. We will monitor/initiate medications and make changes as indicated. Likely length of stay may be greater than 14 days as guardianship/placement are managed. Coding Level of Care Code Acute Code for [facility] Fwd Diagnoses Schizophrenia, acute F23 Psychotic disorder F29 Depression F32.A
[2024-11-12] MEDS: lurasidone 80 mg Tablet 120 MG PO (16:18)
[2024-11-12] MEDS: ammonium lactate lotion 226 gm Btl 1 APPLIC TOPICAL (17:54)
[2024-11-12 21:56] VITALS: BP 154/96; PULSE 92; RESP 18; TEMP 36.5; O2SAT 98
[2024-11-13 06:00] VITALS: BP 119/85; PULSE 88; RESP 18; TEMP 36.6; O2SAT 94
[2024-11-13] MEDS: nicotine 4 mg lozenge MUCOUS MEM ×7 (06:00→22:03)
[2024-11-13 08:03] VITALS: BP 119/85
[2024-11-13] MEDS: losartan 50 mg Tablet 25 MG PO (08:03)
[2024-11-13] MEDS: ammonium lactate lotion 226 gm Btl 1 APPLIC TOPICAL ×2 (08:03→17:32)
[2024-11-13] MEDS: paliperidone ER 6 mg Tablet PO (08:04)
[2024-11-13 14:00] VITALS: BP 120/79; PULSE 101; RESP 16; TEMP 37.1; O2SAT 97
--- NOTE | 2024-11-13 14:48 | P.NPUPN_ITS ---
Subjective NPU 2 Subjective: 39-year-old male with a history of schiz ophrenia or schizoaffective disorder currently on multiple psychotropic medications here in the hospital. The patient had no substantiative changes on the unit. 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 There was no acts of aggression noted. The patient reported adequate sleep. He reported his mood as fine. Mental Status Exam 2 MSE Comments: This is an obese white male in hospital scrubs with adequate grooming and eye contact. No abnormal movements except for mild psychomotor agitation today. Patient with significant pacing as well and he continues to touch his fingers repeatedly on his stomach while walking aimlessly through the hallway. He was cooperative with exam with laissez faire attitude. His speech remained productive. Mood described as great. Affect was subdued. Thought process was linear but very superficial. Thought contact: patient denies suicidal or homicidal ideation, There were prominent bizarre delusions appreciated, multiple in nature. Patient denied auditory or visual hallucinations. Attention and concentration appeared intact and memory appeared unreliable but none were formally tested. Patient is alert and oriented times person and place and time. Insight and judgment are poor. Impulse control: limited. Vitals/I&O/Wt Last Vital Signs Temp 97.9 F 11/13/24 06:00 Pulse 88 11/13/24 06:00 Resp 18 11/13/24 06:00 BP 119/85 11/13/24 08:03 Pulse Ox 94 11/13/24 06:00 O2 Del Method Room Air 11/10/24 14:00 Weight last 48 hrs Weight 127.459 kg Data NPU 11/02/24 19:37 11/02/24 19:37 A&P Assessment and plan (1) Schizophrenia, acute: (2) Psychotic disorder: (3) Depression: Plan This is a 39-year-old white male involuntarily hospitalized with decline in functioning at home with worsening psychosis currently on no medications at this time. He appears abstinent from illicit drugs and alcohol at this time. 1.? ? Encouraged individual, group and milieu therapy. ?2. ? We will attempt to gather collateral information from previous providers ?3. ? TO-15 minute checks on the unit. ?4. ? Recommend sober living treatment at the highest level of care to which the patient is willing to commit. 5. Patient received both IM 234mg, 156mg on 09/06/24 and 09/13/24 respectively. Still remains psychotic, no improvement on maximum dose of latuda. Invega injection due 10/11/2024. Invega injection given next injection due 11/10/2024. Increase the Invega to 234 mg injection and add oral Invega 6 mg p.o. daily until the next injection given on 11/10/2024. Next injection by 12/10/2024. Reduce LATUDA to 60 mg daily with plan to discontinue this due to lack of effectiveness. 6. Patient now placed on another [address]. We filed for 90-day hold on Wednesday and the goal is that hopefully based on what we are hearing he could be out of here possibly in 2 weeks as we have a facility evaluating him. 90-day-hold hearing on 11/08/2024 at 2 PM. 90-day hold granted 11/08/2024. 7. Guardianship may be required by this facility as we are awaiting a date for this filing by sister-filing COMPLETED. PDMP PDMP Reviewed: Not Reviewed Involuntary Hold Information 2 96 Hour Hold: 96 Hour Involuntary Admission: Yes 96 Hour Hold Ending Date: 09/04/24 96 Hour Hold Ending Time: 16:30 Other Hold: Hold End Date: 09/27/27 Attestations NPU 2 Medical Necessity Statement*: Inpatient hospitalization is medically necessary and the clinically appropriate intervention at this time. We will monitor/initiate medications and make changes as indicated. Likely length of stay may be greater than 14 days as guardianship/placement are managed. Coding Level of Care Code Acute Code for g Fwd Diagnoses Schizophrenia, acute F23 Psychotic disorder F29 Depression F32.A
[2024-11-13] MEDS: lurasidone 80 mg Tablet PO (17:31)
[2024-11-13 22:00] VITALS: BP 134/71; PULSE 84; RESP 18; TEMP 36.9; O2SAT 96
[2024-11-14 06:00] VITALS: BP 109/70; PULSE 90; RESP 16; TEMP 36.9; O2SAT 97
[2024-11-14] MEDS: nicotine 4 mg lozenge MUCOUS MEM ×7 (07:03→18:46)
[2024-11-14] MEDS: paliperidone ER 6 mg Tablet PO (08:27)
[2024-11-14 14:00] VITALS: BP 141/86; PULSE 103; RESP 18; TEMP 36.6; O2SAT 95
--- NOTE | 2024-11-14 15:57 | W.PM.NPUPNS ---
Subjective NPU Subjective: 39-year-old male with a history of schizophrenia or schizoaffective disorder currently on multiple psychotropic medications here in the hospital. The patient reported that he was willing to return to live with his sister. The patient continued to spend much of the day walking in the hallway while speaking with himself and repeatedly touching his protruding stomach. No substantiative changes were appreciated otherwise he reported adequate sleep and no change in energy or motivation. Mental Status Exam MSE Comments: This is an obese white male in hospital scrubs with adequate grooming and eye contact. No abnormal movements except for mild psychomotor agitation today. Patient with significant pacing as well and he continues to touch his fingers repeatedly on his stomach while walking aimlessly through the hallway. He was cooperative with exam with laissez faire attitude. His speech remained productive. Mood described as okay. Affect was subdued. Thought process was linear but very superficial. Thought contact: patient denies suicidal or homicidal ideation, There were prominent bizarre delusions appreciated, multiple in nature. Patient denied auditory or visual hallucinations. Attention and concentration appeared intact and memory appeared unreliable but none were formally tested. Patient is alert and oriented times person and place and time. Insight and judgment are poor. Impulse control: limited. Vitals/I&O/Wt Last Vital Signs Temp 98.5 F 11/14/24 06:00 Pulse 90 11/14/24 06:00 Resp 16 11/14/24 06:00 BP 109/70 11/14/24 06:00 Pulse Ox 97 11/14/24 06:00 O2 Del Method Room Air 11/14/24 06:00 Data NPU 11/02/24 19:37 11/02/24 19:37 A&P Assessment and plan (1) Schizophrenia, acute: (2) Psychotic disorder: (3) Depression: Plan This is a 39-year-old white male involuntarily hospitalized with decline in functioning at home with worsening psychosis currently on no medications at this time. He appears abstinent from illicit drugs and alcohol at this time. 1.? ? Encouraged individual, group and milieu therapy. ?2. ? We will attempt to gather collateral information from previous providers ?3. ? TO-15 minute checks on the unit. ?4. ? Recommend sober living treatment at the highest level of care to which the patient is willing to commit. 5. Patient received both IM 234mg, 156mg on 09/06/24 and 09/13/24 respectively. Still remains psychotic, no improvement on maximum dose of latuda. Invega injection due 10/11/2024. Invega injection given next injection due 11/10/2024. Increase the Invega to 234 mg injection received and patient on oral invega 3mg daily. Next injection by 12/10/2024. Continue reduction in LATUDA to 60 mg daily with plan to discontinue this due to lack of effectiveness. 6. Patient now placed on another [address]. We filed for 90-day hold on Wednesday and the goal is that hopefully based on what we are hearing he could be out of here possibly in 2 weeks as we have a facility evaluating him. 90-day-hold hearing on 11/08/2024 at 2 PM. 90-day hold granted 11/08/2024. 7. Guardianship may be required by this facility as we are awaiting a date for this filing by sister. It appears that no court date has occurred as sister was contacted to follow up with current situation. PDMP PDMP Reviewed: Not Reviewed Involuntary Hold Information 96 Hour Hold: 96 Hour Involuntary Admission: Yes 96 Hour Hold Ending Date: 09/04/24 96 Hour Hold Ending Time: 16:30 Other Hold: Hold End Date: 09/27/27 Attestations NPU Medical Necessity Statement*: Inpatient hospitalization is medically necessary and the clinically appropriate intervention at this time. We will monitor/initiate medications and make changes as indicated. Likely length of stay may be greater than 14 days as guardianship/placement are managed. Coding Level of Care Code Acute Code for [facility] Fwd Diagnoses Schizophrenia, acute F23 Psychotic disorder F29 Depression F32.A
[2024-11-14] MEDS: lurasidone 20 mg Tablet 60 MG PO (17:47)
[2024-11-14] MEDS: ammonium lactate lotion 226 gm Btl 1 APPLIC TOPICAL (18:29)
[2024-11-14 22:00] VITALS: BP 127/67; PULSE 85; RESP 20; TEMP 36.4; O2SAT 96
[2024-11-15 06:00] VITALS: BP 117/67; PULSE 88; RESP 18; TEMP 36.7; O2SAT 95
[2024-11-15] MEDS: nicotine 4 mg lozenge MUCOUS MEM ×9 (06:28→22:41)
[2024-11-15] MEDS: paliperidone ER 3 mg Tablet PO (08:16)
[2024-11-15] MEDS: ammonium lactate lotion 226 gm Btl 1 APPLIC TOPICAL ×2 (08:17→17:21)
--- NOTE | 2024-11-15 08:21 | PC.NURSE ---
Pt talking to this nurse about his testosterone medication that he needs to take.
--- NOTE | 2024-11-15 12:49 | PC.NURSE ---
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
[2024-11-15 14:00] VITALS: BP 140/84; PULSE 96; RESP 18; TEMP 36.6; O2SAT 93
--- NOTE | 2024-11-15 14:02 | P.NPUPN_ITS ---
Subjective NPU 2 Subjective: 39-year-old male with a history of schiz ophrenia or schizoaffective disorder currently on multiple psychotropic medications here in the hospital. No side effects reported from his medications. He continued to pace the hallway while playing apparent war games inside of his head as he appeared to be communicating with troops in [place]. The patient had reported not that his mood has been good. He had stated that he was ready to return to his sister's home. There have been no acts of aggression. The patient reported that he was willing to return to live with his sister. Mental Status Exam 2 MSE Comments: This is an obese white male in hospital scrubs with adequate grooming and eye contact. No abnormal movements except for mild psychomotor agitation today. Patient with significant pacing as well and he continues to touch his fingers repeatedly on his stomach while walking aimlessly through the hallway. He was cooperative with exam appearing disinterested. His speech remained productive. Mood described as okay. Affect was subdued. Thought process remained linear but superficial. Thought contact: patient denies suicidal or homicidal ideation, There were prominent bizarre delusions appreciated, multiple in nature. Patient denied auditory or visual hallucinations. Attention and concentration appeared intact and memory appeared unreliable but none were formally tested. Patient is alert and oriented times person and place and time. Insight and judgment are poor. Impulse control: limited. Vitals/I&O/Wt Last Vital Signs Temp 98.1 F 11/15/24 06:00 Pulse 88 11/15/24 06:00 Resp 18 11/15/24 06:00 BP 117/67 11/15/24 06:00 Pulse Ox 95 11/15/24 06:00 O2 Del Method Room Air 11/15/24 06:00 Data NPU 11/02/24 19:37 11/02/24 19:37 A&P Assessment and plan (1) Schizophrenia, acute: (2) Psychotic disorder: (3) Depression: Plan This is a 39-year-old white male involuntarily hospitalized with decline in functioning at home with worsening psychosis currently on no medications at this time. He appears abstinent from illicit drugs and alcohol at this time. 1.? ? Encouraged individual, group and milieu therapy. ?2. ? We will attempt to gather collateral information from previous providers ?3. ? TO-15 minute checks on the unit. ?4. ? Recommend sober living treatment at the highest level of care to which the patient is willing to commit. 5. Patient received both IM 234mg, 156mg on 09/06/24 and 09/13/24 respectively. Still remains psychotic, no improvement on maximum dose of latuda. Invega injection due 10/11/2024. Invega injection given next injection due 11/10/2024. Increase the Invega to 234 mg injection received and patient on oral invega 3mg daily. Next injection by 12/10/2024. Continue reduction in LATUDA to 60 mg daily with plan to discontinue this due to lack of effectiveness. Will consider ADDITION OF CAPLYTA with Invega sustenna on monthly basis. 6. Patient now placed on another [address]. We filed for 90-day hold on Wednesday and the goal is that hopefully based on what we are hearing he could be out of here possibly in 2 weeks as we have a facility evaluating him. 90-day-hold hearing on 11/08/2024 at 2 PM. 90-day hold granted 11/08/2024. 7. Guardianship now to be completed by mother. PDMP PDMP Reviewed: Not Reviewed Involuntary Hold Information 2 96 Hour Hold: 96 Hour Involuntary Admission: Yes 96 Hour Hold Ending Date: 09/04/24 96 Hour Hold Ending Time: 16:30 Other Hold: Hold End Date: 09/27/27 Attestations NPU 2 Medical Necessity Statement*: Inpatient hospitalization is medically necessary and the clinically appropriate intervention at this time. We will monitor/initiate medications and make changes as indicated. Likely length of stay may be greater than 14 days as guardianship/placement are managed. Coding Level of Care Code Acute Code for [facility] Fwd Diagnoses Schizophrenia, acute F23 Psychotic disorder F29 Depression F32.A
[2024-11-15] MEDS: lurasidone 20 mg Tablet 60 MG PO (15:59)
[2024-11-15] MEDS: acetaminophen 325 mg Tablet 650 MG PO (20:08)
[2024-11-15 20:24] VITALS: BP 160/95; PULSE 77; RESP 18; TEMP 36.6; O2SAT 94
[2024-11-16] MEDS: nicotine 4 mg lozenge MUCOUS MEM ×6 (05:02→20:21)
[2024-11-16] MEDS: acetaminophen 325 mg Tablet 650 MG PO ×2 (05:30→11:44)
[2024-11-16 06:00] VITALS: BP 133/97; PULSE 99; RESP 18; TEMP 36.8; O2SAT 94
[2024-11-16 08:18] VITALS: BP 133/97
[2024-11-16] MEDS: ammonium lactate lotion 226 gm Btl 1 APPLIC TOPICAL (08:18)
[2024-11-16] MEDS: paliperidone ER 3 mg Tablet PO (08:18)
[2024-11-16] MEDS: losartan 50 mg Tablet 25 MG PO (08:18)
[2024-11-16 14:00] VITALS: BP 108/69; PULSE 115; RESP 16; TEMP 36.9; O2SAT 95
--- NOTE | 2024-11-16 15:56 | P.NPUPN_ITS ---
Subjective NPU 2 Subjective: 39-year-old male with a history of schiz ophrenia or schizoaffective disorder currently on multiple psychotropic medications here in the hospital. The patient had stated that he would like to return to live with his sister upon discharge. He continued to spend time having conversations with himself while walking in the hallway and rubbing his stomach. He continued to state that he was communicating while in exercises. No side effects reported from his medications. Mental Status Exam 2 MSE Comments: This is an obese white male in hospital scrubs with adequate grooming and eye contact. No abnormal movements except for mild psychomotor agitation today. Patient with significant pacing as well and he continues to touch his fingers repeatedly on his stomach while walking aimlessly through the hallway. He was cooperative with exam appearing disinterested. His speech remained productive. Mood described as good. Affect was odd and subdued. Thought process remained linear but superficial. Thought contact: patient denies suicidal or homicidal ideation, There were prominent bizarre delusions appreciated, multiple in nature. Patient denied auditory or visual hallucinations. Attention and concentration appeared intact and memory appeared unreliable but none were formally tested. Patient is alert and oriented times person and place and time. Insight and judgment are poor. Impulse control: appeared modestly improved. Vitals/I&O/Wt Last Vital Signs Temp 98.3 F 11/16/24 06:00 Pulse 99 11/16/24 06:00 Resp 18 11/16/24 06:00 BP 133/97 11/16/24 08:18 Pulse Ox 94 11/16/24 06:00 O2 Del Method Room Air 11/16/24 06:00 Data NPU 11/02/24 19:37 11/02/24 19:37 A&P Assessment and plan (1) Schizophrenia, acute: (2) Psychotic disorder: (3) Depression: Plan This is a 39-year-old white male involuntarily hospitalized with decline in functioning at home with worsening psychosis currently on no medications at this time. He appears abstinent from illicit drugs and alcohol at this time. 1.? ? Encouraged individual, group and milieu therapy. ?2. ? We will attempt to gather collateral information from previous providers ?3. ? TO-15 minute checks on the unit. ?4. ? Recommend sober living treatment at the highest level of care to which the patient is willing to commit. 5. Patient received both IM 234mg, 156mg on 09/06/24 and 09/13/24 respectively. Still remains psychotic, no improvement on maximum dose of latuda. Invega injection due 10/11/2024. Invega injection given next injection due 11/10/2024. Increase the Invega to 234 mg injection received and patient on oral invega 3mg daily. Next injection by 12/10/2024. Continue reduction in LATUDA to 60 mg daily with plan to discontinue this due to lack of effectiveness. Will consider ADDITION OF CAPLYTA with Invega sustenna on monthly basis. 6. Patient now placed on another [address]. We filed for 90-day hold on Wednesday and the goal is that hopefully based on what we are hearing he could be out of here possibly in 2 weeks as we have a facility evaluating him. 90-day-hold hearing on 11/08/2024 at 2 PM. 90-day hold granted 11/08/2024. 7. Guardianship now to be completed by mother. PDMP PDMP Reviewed: Not Reviewed Involuntary Hold Information 2 96 Hour Hold: 96 Hour Involuntary Admission: Yes 96 Hour Hold Ending Date: 09/04/24 96 Hour Hold Ending Time: 16:30 Other Hold: Hold End Date: 09/27/27 Attestations NPU 2 Medical Necessity Statement*: Inpatient hospitalization is medically necessary and the clinically appropriate intervention at this time. We will monitor/initiate medications and make changes as indicated. Likely length of stay may be greater than 14 days as guardianship/placement are managed. Coding Level of Care Code Acute Code for [facility] Diagnoses Schizophrenia, acute F23 Psychotic disorder F29 Depression F32.A
[2024-11-16] MEDS: lurasidone 20 mg Tablet 60 MG PO (17:16)
[2024-11-16 21:01] VITALS: BP 140/85; PULSE 96; RESP 18; TEMP 36.4; O2SAT 94
[2024-11-17 06:00] VITALS: BP 111/62; PULSE 77; RESP 18; TEMP 36.7; O2SAT 95
[2024-11-17] MEDS: nicotine 4 mg lozenge MUCOUS MEM ×8 (06:04→22:01)
[2024-11-17 08:08] VITALS: BP 111/62
[2024-11-17] MEDS: losartan 50 mg Tablet 25 MG PO (08:08)
[2024-11-17] MEDS: paliperidone ER 3 mg Tablet PO (08:08)
[2024-11-17 14:00] VITALS: BP 137/82; PULSE 104; RESP 16; TEMP 36.7; O2SAT 96
--- NOTE | 2024-11-17 15:40 | W.PM.NPUPNS ---
Subjective NPU Subjective: 39-year-old male with a history of schizophrenia or schizoaffective disorder currently on multiple psychotropic medications here in the hospital. The patient had reported that he was fine. He stated that he was hopeful of returning to live with his sister. The patient reported that he was just here until he was told that he could return home. He continued to spend time speaking to himself in the hallway while rubbing his stomach and attempting to communicate with what he termed as the involved in covert operations. Mental Status Exam MSE Comments: This is an obese white male in hospital scrubs with adequate grooming and eye contact. No abnormal movements except for mild psychomotor retardation. Patient with significant pacing as well and he continues to touch his fingers repeatedly on his stomach while walking aimlessly through the hallway. He was cooperative with exam appearing disinterested. His speech remained productive. Mood described as allright. Affect remained odd and subdued. Thought process remained linear but superficial. Thought contact: patient denies suicidal or homicidal ideation, There were prominent bizarre delusions appreciated, multiple in nature. Patient denied auditory or visual hallucinations. Attention and concentration appeared intact and memory appeared unreliable but none were formally tested. Patient is alert and oriented times person and place and time. Insight and judgment are poor. Impulse control: appeared modestly improved. Vitals/I&O/Wt Last Vital Signs Temp 98.1 F 11/17/24 14:00 Pulse 104 H 11/17/24 14:00 Resp 16 11/17/24 14:00 BP 137/82 11/17/24 14:00 Pulse Ox 96 11/17/24 14:00 O2 Del Method Room Air 11/17/24 14:00 Data NPU 11/02/24 19:37 11/02/24 19:37 A&P Assessment and plan (1) Schizophrenia, acute: (2) Psychotic disorder: (3) Depression: Plan This is a 39-year-old white male involuntarily hospitalized with decline in functioning at home with worsening psychosis currently on no medications at this time. He appears abstinent from illicit drugs and alcohol at this time. 1.? ? Encouraged individual, group and milieu therapy. ?2. ? We will attempt to gather collateral information from previous providers ?3. ? TO-15 minute checks on the unit. ?4. ? Recommend sober living treatment at the highest level of care to which the patient is willing to commit. 5. Patient received both IM 234mg, 156mg on 09/06/24 and 09/13/24 respectively. Still remains psychotic, no improvement on maximum dose of latuda. Invega injection due 10/11/2024. Invega injection given next injection due 11/10/2024. Increase the Invega to 234 mg injection received and patient on oral invega 3mg daily. Next injection by 12/10/2024. Continue reduction in LATUDA to 40 mg daily with plan to discontinue this due to lack of effectiveness. Will consider ADDITION OF CAPLYTA with Invega sustenna on monthly basis. 6. Patient now placed on another [address]. We filed for 90-day hold on Wednesday and the goal is that hopefully based on what we are hearing he could be out of here possibly in 2 weeks as we have a facility evaluating him. 90-day-hold hearing on 11/08/2024 at 2 PM. 90-day hold granted 11/08/2024. 7. Guardianship now to be completed by mother. LEVEL 2 completed again today on 11/17/24. PDMP PDMP Reviewed: Not Reviewed Involuntary Hold Information 96 Hour Hold: 96 Hour Involuntary Admission: Yes 96 Hour Hold Ending Date: 09/04/24 96 Hour Hold Ending Time: 16:30 Other Hold: Hold End Date: 09/27/27 Attestations NPU Medical Necessity Statement*: Inpatient hospitalization is medically necessary and the clinically appropriate intervention at this time. We will monitor/initiate medications and make changes as indicated. Likely length of stay may be greater than 14 days as guardianship/placement are managed. Coding Level of Care Code Acute Code for [facility] Fwd Diagnoses Schizophrenia, acute F23 Psychotic disorder F29 Depression F32.A
[2024-11-17] MEDS: lurasidone 20 mg Tablet 40 MG PO (17:35)
[2024-11-17 21:58] VITALS: BP 152/93; PULSE 106; RESP 18; TEMP 36.6; O2SAT 97
--- NOTE | 2024-11-18 01:35 | PC.NURSE ---
this nurse assumed care of pt at 0100.
[2024-11-18] MEDS: nicotine 4 mg lozenge MUCOUS MEM ×9 (05:50→21:47)
[2024-11-18 06:00] VITALS: BP 101/67; PULSE 108; RESP 18; TEMP 36.9; O2SAT 95
[2024-11-18] MEDS: paliperidone ER 3 mg Tablet PO (08:26)
[2024-11-18 08:27] VITALS: BP 101/67
[2024-11-18] MEDS: losartan 50 mg Tablet 25 MG PO (08:27)
--- NOTE | 2024-11-18 11:21 | P.NPUPN_ITS ---
Subjective NPU 2 Subjective: 39-year-old male with a history of schiz ophrenia or schizoaffective disorder currently on multiple psychotropic medications here in the hospital. No substantial changes were noted. He continued to be responding at times to internal stimuli while pacing the hallway and engaged in occasional periods of loud conversation that he described as being operations. 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 He had reported no side effects from his medications. He reported adequate sleep. Mental Status Exam 2 MSE Comments: This is an obese white male in hospital scrubs with adequate grooming and eye contact. No abnormal movements except for mild psychomotor retardation. Patient with significant pacing as well and he continues to touch his fingers repeatedly on his stomach while walking aimlessly through the hallway. He was cooperative with exam appearing disinterested. His speech remained productive but spontaneous. Mood described as allright. Affect remained odd and subdued. Thought process remained linear but superficial. Thought contact: patient denies suicidal or homicidal ideation, There were prominent bizarre delusions appreciated, multiple in nature. Patient denied auditory or visual hallucinations. Attention and concentration appeared intact and memory appeared unreliable but none were formally tested. Patient is alert and oriented times person and place and time. Insight and judgment are poor. Impulse control: appeared modestly improved. Vitals/I&O/Wt Last Vital Signs Temp 98.4 F 11/18/24 06:00 Pulse 108 H 11/18/24 06:00 Resp 18 11/18/24 06:00 BP 101/67 11/18/24 08:27 Pulse Ox 95 11/18/24 06:00 O2 Del Method Room Air 11/17/24 14:00 Data NPU 11/02/24 19:37 11/02/24 19:37 A&P Assessment and plan (1) Schizophrenia, acute: (2) Psychotic disorder: (3) Depression: Plan This is a 39-year-old white male involuntarily hospitalized with decline in functioning at home with worsening psychosis currently on no medications at this time. He appears abstinent from illicit drugs and alcohol at this time. 1.? ? Encouraged individual, group and milieu therapy. ?2. ? We will attempt to gather collateral information from previous providers ?3. ? TO-15 minute checks on the unit. ?4. ? Recommend sober living treatment at the highest level of care to which the patient is willing to commit. 5. Patient received both IM 234mg, 156mg on 09/06/24 and 09/13/24 respectively. Still remains psychotic, no improvement on maximum dose of latuda. Invega injection due 10/11/2024. Invega injection given next injection due 11/10/2024. Increase the Invega to 234 mg injection received and patient on oral invega 3mg daily. Next injection by 12/10/2024. Continue reduction in LATUDA to 40 mg daily with plan to discontinue this due to lack of effectiveness. Will consider ADDITION OF CAPLYTA or Seroquel with Invega sustenna on monthly basis. 6. Patient now placed on another [address]. We filed for 90-day hold on Wednesday and the goal is that hopefully based on what we are hearing he could be out of here possibly in 2 weeks as we have a facility evaluating him. 90-day-hold hearing on 11/08/2024 at 2 PM. 90-day hold granted 11/08/2024. 7. Guardianship now to be completed by mother. LEVEL 2 completed again today on 11/17/24. PDMP PDMP Reviewed: Not Reviewed Involuntary Hold Information 2 96 Hour Hold: 96 Hour Involuntary Admission: Yes 96 Hour Hold Ending Date: 09/04/24 96 Hour Hold Ending Time: 16:30 Other Hold: Hold End Date: 09/27/27 Attestations NPU 2 Medical Necessity Statement*: Inpatient hospitalization is medically necessary and the clinically appropriate intervention at this time. We will monitor/initiate medications and make changes as indicated. Likely length of stay may be greater than 14 days as guardianship/placement are managed. Coding Level of Care Code Acute Code for [facility] Fwd Diagnoses Schizophrenia, acute F23 Psychotic disorder F29 Depression F32.A
[2024-11-18 14:00] VITALS: BP 119/75; PULSE 98; RESP 16; TEMP 36.8; O2SAT 95
[2024-11-18] MEDS: acetaminophen 325 mg Tablet 650 MG PO (16:56)
[2024-11-18] MEDS: ammonium lactate lotion 226 gm Btl 1 APPLIC TOPICAL (16:56)
[2024-11-18 19:58] VITALS: BP 120/70; PULSE 89; RESP 18; TEMP 36.7; O2SAT 98
[2024-11-19 06:00] VITALS: BP 127/78; PULSE 83; RESP 17; O2SAT 96
[2024-11-19] MEDS: nicotine 4 mg lozenge MUCOUS MEM ×7 (06:13→20:59)
[2024-11-19 08:07] VITALS: BP 127/78
[2024-11-19] MEDS: paliperidone ER 3 mg Tablet PO (08:07)
[2024-11-19] MEDS: losartan 50 mg Tablet 25 MG PO (08:07)
[2024-11-19] MEDS: acetaminophen 325 mg Tablet 650 MG PO (09:06)
[2024-11-19 14:00] VITALS: BP 137/82; PULSE 92; RESP 16; TEMP 36.4; O2SAT 97
--- NOTE | 2024-11-19 14:30 | P.NPUPN_ITS ---
Subjective NPU 2 Subjective: 39-year-old male with a history of schiz ophrenia or schizoaffective disorder currently on multiple psychotropic medications here in the hospital. No substantial changes were appreciated. 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 The patient had continued to remain grandiose stating that he had numerous degrees including a law degree in a medical degree. He had reported adequate sleep. There was no acts of aggression noted with the reduction in Latuda. He had reported that he was hopeful about going back to live with his sister when he leaves here. Mental Status Exam 2 MSE Comments: This is an obese white male in hospital scrubs with adequate grooming and eye contact. No abnormal movements except for mild psychomotor retardation. Patient with significant pacing as well and he continues to touch his fingers repeatedly on his stomach while walking aimlessly through the hallway. He was cooperative with exam appearing disinterested. His speech remained productive but spontaneous. Mood described as good Affect remained odd and subdued. Thought process remained linear but superficial. Thought contact: patient denies suicidal or homicidal ideation, There were prominent bizarre delusions appreciated, multiple in nature. Patient denied auditory or visual hallucinations. Attention and concentration appeared intact and memory appeared unreliable but none were formally tested. Patient is alert and oriented times person and place and time. Insight and judgment are poor. Impulse control: appeared modestly improved. Vitals/I&O/Wt Last Vital Signs Temp 97.5 F L 11/19/24 14:00 Pulse 92 11/19/24 14:00 Resp 16 11/19/24 14:00 BP 137/82 11/19/24 14:00 Pulse Ox 97 11/19/24 14:00 O2 Del Method Room Air 11/19/24 14:00 Weight last 48 hrs Weight 134.898 kg Data NPU 11/02/24 19:37 11/02/24 19:37 A&P Assessment and plan (1) Schizophrenia, acute: (2) Psychotic disorder: (3) Depression: Plan This is a 39-year-old white male involuntarily hospitalized with decline in functioning at home with worsening psychosis currently on no medications at this time. He appears abstinent from illicit drugs and alcohol at this time. 1.? ? Encouraged individual, group and milieu therapy. ?2. ? We will attempt to gather collateral information from previous providers ?3. ? TO-15 minute checks on the unit. ?4. ? Recommend sober living treatment at the highest level of care to which the patient is willing to commit. 5. Patient received both IM 234mg, 156mg on 09/06/24 and 09/13/24 respectively. Still remains psychotic, no improvement on maximum dose of latuda. Invega injection due 10/11/2024. Invega injection given next injection due 11/10/2024. Increase the Invega to 234 mg injection received and patient on oral invega 3mg daily. Next injection by 12/10/2024. D/C Latuda, add Seroquel 100mg at night tonight. Will consider ADDITION OF CAPLYTA or Seroquel with Invega sustenna on monthly basis. 6. Patient now placed on another [address]. We filed for 90-day hold on Wednesday and the goal is that hopefully based on what we are hearing he could be out of here possibly in 2 weeks as we have a facility evaluating him. 90-day-hold hearing on 11/08/2024 at 2 PM. 90-day hold granted 11/08/2024. 7. Guardianship now to be completed by mother. LEVEL 2 completed again today on 11/17/24. PDMP PDMP Reviewed: Not Reviewed Involuntary Hold Information 2 96 Hour Hold: 96 Hour Involuntary Admission: Yes 96 Hour Hold Ending Date: 09/04/24 96 Hour Hold Ending Time: 16:30 Other Hold: Hold End Date: 09/27/27 Attestations NPU 2 Medical Necessity Statement*: Inpatient hospitalization is medically necessary and the clinically appropriate intervention at this time. We will monitor/initiate medications and make changes as indicated. Likely length of stay may be greater than 14 days as guardianship/placement are managed. Coding Level of Care Code Acute Code for [facility] Fwd Diagnoses Schizophrenia, acute F23 Psychotic disorder F29 Depression F32.A
[2024-11-19] MEDS: quetiapine 100 mg Tablet PO (20:59)
[2024-11-19 22:00] VITALS: BP 96/58; PULSE 95; RESP 17; O2SAT 94
[2024-11-20 06:00] VITALS: BP 119/64; PULSE 76; RESP 17; O2SAT 97
[2024-11-20] MEDS: nicotine 4 mg lozenge MUCOUS MEM ×6 (06:02→15:56)
[2024-11-20 08:03] VITALS: BP 119/64
[2024-11-20] MEDS: losartan 50 mg Tablet 25 MG PO (08:03)
[2024-11-20] MEDS: paliperidone ER 3 mg Tablet PO (08:03)
[2024-11-20 14:00] VITALS: BP 130/91; PULSE 93; TEMP 36.8; O2SAT 98
--- NOTE | 2024-11-20 14:36 | P.NPUPN_ITS ---
Subjective NPU 2 Subjective: 39-year-old male with a history of schiz ophrenia or schizoaffective disorder currently on multiple psychotropic medications here in the hospital. No side effects noted. He continued to engage in odd bizarre behavior while walking through the halls but appeared less preoccupied with playing games as he had done previously. He continued to promote having numerous degrees in law, history and medicine. He had expressed desire to live with his sister when stable enough to be discharged. Mental Status Exam 2 MSE Comments: This is an obese white male in hospital scrubs with adequate grooming and eye contact. No abnormal movements except for mild psychomotor retardation. Patient with significant pacing in the hallway and continued to remain internally preoccupied while speaking to himself under his breath. He was cooperative with exam appearing disinterested. His speech remained productive but spontaneous. Mood described as pretty good Affect remained odd and subdued. Thought process remained linear but superficial. Thought contact: patient denies suicidal or homicidal ideation, There were prominent bizarre delusions appreciated, multiple in nature. Patient denied auditory or visual hallucinations. Attention and concentration appeared intact and memory appeared unreliable but none were formally tested. Patient is alert and oriented times person and place and time. Insight and judgment are poor. Impulse control: appeared modestly improved. Vitals/I&O/Wt Last Vital Signs Temp 97.5 F L 11/19/24 14:00 Pulse 76 11/20/24 06:00 Resp 17 11/20/24 06:00 BP 119/64 11/20/24 08:03 Pulse Ox 97 11/20/24 06:00 O2 Del Method Room Air 11/19/24 14:00 Weight last 48 hrs Weight 134.898 kg Data NPU 11/02/24 19:37 11/02/24 19:37 A&P Assessment and plan (1) Schizophrenia, acute: (2) Psychotic disorder: (3) Depression: Plan This is a 39-year-old white male involuntarily hospitalized with decline in functioning at home with worsening psychosis currently on no medications at this time. He appears abstinent from illicit drugs and alcohol at this time. 1.? ? Encouraged individual, group and milieu therapy. ?2. ? We will attempt to gather collateral information from previous providers ?3. ? TO-15 minute checks on the unit. ?4. ? Recommend sober living treatment at the highest level of care to which the patient is willing to commit. 5. Patient received both IM 234mg, 156mg on 09/06/24 and 09/13/24 respectively. Still remains psychotic, no improvement on maximum dose of latuda. Invega injection due 10/11/2024. Invega injection given next injection due 11/10/2024. Increase the Invega to 234 mg injection received and patient on oral invega 3mg daily. Next injection by 12/10/2024. D/C Latuda, add Seroquel 100mg at night tonight. Invega 3mg qhs discontinued today. Seroquel increase to 150mg at night. Continue monthly IM invega 156mg daily. 6. Patient now placed on another [address]. We filed for 90-day hold on Wednesday and the goal is that hopefully based on what we are hearing he could be out of here possibly in 2 weeks as we have a facility evaluating him. 90-day-hold hearing on 11/08/2024 at 2 PM. 90-day hold granted 11/08/2024. 7. Guardianship now to be completed by mother. LEVEL 2 completed again today on 11/17/24. PDMP PDMP Reviewed: Not Reviewed Involuntary Hold Information 2 96 Hour Hold: 96 Hour Involuntary Admission: Yes 96 Hour Hold Ending Date: 09/04/24 96 Hour Hold Ending Time: 16:30 Other Hold: Hold End Date: 02/07/25 Attestations NPU 2 Medical Necessity Statement*: Inpatient hospitalization is medically necessary and the clinically appropriate intervention at this time. We will monitor/initiate medications and make changes as indicated. Likely length of stay may be greater than 14 days as guardianship/placement are managed. Coding Level of Care Code Acute Code for g Fwd Diagnoses Schizophrenia, acute F23 Psychotic disorder F29 Depression F32.A
[2024-11-20] MEDS: nicotine 4 mg lozenge 8 MG MUCOUS MEM ×2 (17:54→19:56)
[2024-11-20 20:37] VITALS: BP 122/74; PULSE 88; RESP 16; TEMP 36.6; O2SAT 98
[2024-11-20] MEDS: quetiapine 100 mg Tablet 150 MG PO (20:39)
[2024-11-21 06:00] VITALS: BP 105/74; PULSE 80; RESP 18; TEMP 36.9; O2SAT 96
[2024-11-21] MEDS: nicotine 4 mg lozenge 8 MG MUCOUS MEM ×8 (07:35→21:47)
[2024-11-21] MEDS: losartan 50 mg Tablet 25 MG PO (07:41)
[2024-11-21] MEDS: acetaminophen 325 mg Tablet 650 MG PO ×2 (08:33→21:49)
--- NOTE | 2024-11-21 12:23 | P.NPUPN_ITS ---
Subjective NPU 2 Subjective: 39-year-old male with a history of schiz ophrenia or schizoaffective disorder currently on multiple psychotropic medications here in the hospital. The patient had requested that he decrease in Seroquel stating that he felt excessively sedated stating that he had barely been able to get up this morning. He reported that he was hopeful about going back to his sister's place when discharged. He had continued to pace the hallway tapping his stomach and appearing to communicate with people that were not present. He reported no feelings of hopelessness. He had reported that his mood was good. He had reported no change in appetite or energy. Mental Status Exam 2 MSE Comments: This is an obese white male in hospital scrubs with adequate grooming and eye contact. No abnormal movements except for mild psychomotor retardation. Patient with significant pacing in the hallway and continued to remain internally preoccupied while speaking to himself under his breath. He was friendly and cooperative with exam. His speech remained productive but spontaneous. Mood described as okay Affect remained odd and subdued. Thought process remained linear but superficial. Thought contact: patient denies suicidal or homicidal ideation, There were prominent bizarre delusions appreciated, multiple in nature. Patient denied auditory or visual hallucinations. Attention and concentration appeared intact and memory appeared unreliable but none were formally tested. Patient is alert and oriented times person and place and time. Insight and judgment are poor. Impulse control: appeared fair. Vitals/I&O/Wt Last Vital Signs Temp 98.4 F 11/21/24 06:00 Pulse 80 11/21/24 06:00 Resp 18 11/21/24 06:00 BP 105/74 11/21/24 06:00 Pulse Ox 96 11/21/24 06:00 O2 Del Method Room Air 11/21/24 06:00 Data NPU 11/02/24 19:37 11/02/24 19:37 A&P Assessment and plan (1) Schizophrenia, acute: (2) Psychotic disorder: (3) Depression: Plan This is a 39-year-old white male involuntarily hospitalized with decline in functioning at home with worsening psychosis currently on no medications at this time. He appears abstinent from illicit drugs and alcohol at this time. 1.? ? Encouraged individual, group and milieu therapy. ?2. ? We will attempt to gather collateral information from previous providers ?3. ? TO-15 minute checks on the unit. ?4. ? Recommend sober living treatment at the highest level of care to which the patient is willing to commit. 5. Patient received both IM 234mg, 156mg on 09/06/24 and 09/13/24 respectively. Still remains psychotic, no improvement on maximum dose of latuda. Invega injection due 10/11/2024. Invega injection given next injection due 11/10/2024. Increase the Invega to 234 mg injection received and patient on oral invega 3mg daily. Next injection by 12/10/2024. D/C Latuda, add Seroquel 100mg at night tonight. Invega 3mg qhs discontinued today. Seroquel decrease to 100mg at night. Continue monthly IM invega 156mg daily. 6. Patient now placed on another [address]. We filed for 90-day hold on Wednesday and the goal is that hopefully based on what we are hearing he could be out of here possibly in 2 weeks as we have a facility evaluating him. 90-day-hold hearing on 11/08/2024 at 2 PM. 90-day hold granted 11/08/2024. 7. Guardianship now to be completed by mother. LEVEL 2 completed again today on 11/17/24. PDMP PDMP Reviewed: Not Reviewed Involuntary Hold Information 2 96 Hour Hold: 96 Hour Involuntary Admission: Yes 96 Hour Hold Ending Date: 09/04/24 96 Hour Hold Ending Time: 16:30 Other Hold: Hold End Date: 02/07/25 Attestations NPU 2 Medical Necessity Statement*: Inpatient hospitalization is medically necessary and the clinically appropriate intervention at this time. We will monitor/initiate medications and make changes as indicated. Likely length of stay may be greater than 14 days as guardianship/placement are managed. Coding Level of Care Code Acute Code for [facility] Fwd Diagnoses Schizophrenia, acute F23 Psychotic disorder F29 Depression F32.A
[2024-11-21 14:00] VITALS: BP 147/89; PULSE 100; RESP 20; TEMP 36.5; O2SAT 98
[2024-11-21] MEDS: quetiapine 100 mg Tablet PO (19:47)
[2024-11-21 19:55] VITALS: BP 151/86; PULSE 108; RESP 18; O2SAT 95
--- NOTE | 2024-11-21 20:50 | PC.NURSE ---
Clt states that he is the [employer] Tom . This nurse showed disbelief and the pt insisted that he was the Real Tom .
[2024-11-22 06:00] VITALS: BP 112/58; PULSE 84; RESP 18; TEMP 36.5; O2SAT 97
[2024-11-22] MEDS: nicotine 4 mg lozenge 8 MG MUCOUS MEM ×7 (06:58→20:14)
[2024-11-22] MEDS: acetaminophen 325 mg Tablet 650 MG PO (07:24)
[2024-11-22 08:06] VITALS: BP 144/92
[2024-11-22] MEDS: losartan 50 mg Tablet 25 MG PO (08:06)
[2024-11-22 14:00] VITALS: BP 128/82; PULSE 95; RESP 16; TEMP 36.8; O2SAT 95
--- NOTE | 2024-11-22 14:08 | P.NPUPN_ITS ---
Subjective NPU 2 Subjective: 39-year-old male with a history of schiz ophrenia or schizoaffective disorder currently on multiple psychotropic medications here in the hospital. Patient had continued to pace the hallway engaged and repetitively touching his stomach with his fingers while communicating with people that did not appear to be present here on the unit. He had reported that he felt excessively tired on Seroquel and requested an alternative medication despite the reduction to 100 mg at night. He had reported that his mood was okay. He had been redirectable on the milieu and stated that he was hopeful about going to his sisters place to live when ready. Mental Status Exam 2 MSE Comments: This is an obese white male in hospital scrubs with adequate grooming and eye contact. No abnormal movements except for mild psychomotor retardation. Patient with significant pacing in the hallway and continued to remain internally preoccupied while speaking to himself under his breath. He was friendly and cooperative with exam. His speech remained productive but spontaneous. Mood described as allright Affect remained odd and subdued. Thought process remained linear but superficial. Thought contact: patient denies suicidal or homicidal ideation, There were prominent bizarre delusions appreciated, multiple in nature. Patient denied auditory or visual hallucinations. Attention and concentration appeared intact and memory appeared unreliable but none were formally tested. Patient is alert and oriented times person and place and time. Insight and judgment are poor. Impulse control: appeared fair. Vitals/I&O/Wt Last Vital Signs Temp 97.7 F 11/22/24 06:00 Pulse 84 11/22/24 06:00 Resp 18 11/22/24 06:00 BP 144/92 11/22/24 08:06 Pulse Ox 97 11/22/24 06:00 O2 Del Method Room Air 11/22/24 06:00 Data NPU 11/02/24 19:37 11/02/24 19:37 A&P Assessment and plan (1) Schizophrenia, acute: (2) Psychotic disorder: (3) Depression: Plan This is a 39-year-old white male involuntarily hospitalized with decline in functioning at home with worsening psychosis currently on no medications at this time. He appears abstinent from illicit drugs and alcohol at this time. 1.? ? Encouraged individual, group and milieu therapy. ?2. ? We will attempt to gather collateral information from previous providers ?3. ? TO-15 minute checks on the unit. ?4. ? Recommend sober living treatment at the highest level of care to which the patient is willing to commit. 5. Patient received both IM 234mg, 156mg on 09/06/24 and 09/13/24 respectively. Invega injection due 10/11/2024. Invega injection given next injection due 11/10/2024. Increase the Invega to 234 mg injection received and patient on oral invega 3mg daily. Next injection by 12/10/2024. Continue monthly IM invega 156mg daily. 6. Patient now placed on another [address]. We filed for 90-day hold on Wednesday and the goal is that hopefully based on what we are hearing he could be out of here possibly in 2 weeks as we have a facility evaluating him. 90-day-hold hearing on 11/08/2024 at 2 PM. 90-day hold granted 11/08/2024. 7. Guardianship now to be completed by mother. LEVEL 2 completed again on 11/17/24. PDMP PDMP Reviewed: Not Reviewed Involuntary Hold Information 2 96 Hour Hold: 96 Hour Involuntary Admission: Yes 96 Hour Hold Ending Date: 09/04/24 96 Hour Hold Ending Time: 16:30 Other Hold: Hold End Date: 02/07/25 Attestations NPU 2 Medical Necessity Statement*: Inpatient hospitalization is medically necessary and the clinically appropriate intervention at this time. We will monitor/initiate medications and make changes as indicated. Likely length of stay may be greater than 14 days as guardianship/placement are managed. Coding Level of Care Code Acute Code for [facility] Fwd Diagnoses Schizophrenia, acute F23 Psychotic disorder F29 Depression F32.A
--- NOTE | 2024-11-22 18:43 | PC.NURSE ---
pt being intrusive pt being intrusive with staff/ peers all day. this nurse and other had to ask him multiple times to leave the nurses station for other patient care. he also was asking this nurse about another pts results of testing.
[2024-11-22 20:10] VITALS: BP 122/87; PULSE 92; RESP 20; O2SAT 97
[2024-11-22] MEDS: ammonium lactate lotion 226 gm Btl 1 APPLIC TOPICAL (20:14)
[2024-11-22] MEDS: quetiapine 100 mg Tablet PO (20:15)
[2024-11-23 06:00] VITALS: BP 105/61; PULSE 82; RESP 18; TEMP 36.4; O2SAT 96
[2024-11-23] MEDS: nicotine 4 mg lozenge 8 MG MUCOUS MEM ×6 (08:13→20:18)
--- NOTE | 2024-11-23 11:51 | W.PM.NPUPNS ---
Subjective NPU Subjective: 39-year-old male with a history of schizophrenia or schizoaffective disorder currently on multiple psychotropic medications here in the hospital. Patient had reported feeling excessively tired on Seroquel. She can continue to have significant pacing in the hallway while engaged in conversation with himself while patting his stomach with his fingers throughout much of the day. There was no acts of aggression noted. He had reported feeling less tired. He continued to report that he would like to live with his sister when leaving the hospital. Mental Status Exam MSE Comments: This is an obese white male in hospital scrubs with adequate grooming and eye contact. No abnormal movements except for mild psychomotor retardation. Patient with significant pacing in the hallway and continued to remain internally preoccupied while speaking to himself under his breath. He was friendly and cooperative with exam. His speech remained productive but spontaneous. Mood described as allright Affect remained odd and subdued. Thought process remained linear but superficial. Thought contact: patient denies suicidal or homicidal ideation, There were prominent bizarre delusions appreciated, multiple in nature. Patient denied auditory or visual hallucinations but did appear to be responding to internal stimuli. Attention and concentration appeared intact and memory appeared unreliable but none were formally tested. Patient is alert and oriented times person and place and time. Insight and judgment are poor. Impulse control: appeared fair. Vitals/I&O/Wt Last Vital Signs Temp 97.6 F 11/23/24 06:00 Pulse 82 11/23/24 06:00 Resp 18 11/23/24 06:00 BP 105/61 11/23/24 06:00 Pulse Ox 96 11/23/24 06:00 O2 Del Method Room Air 11/23/24 06:00 Data NPU 11/02/24 19:37 11/02/24 19:37 A&P Assessment and plan (1) Schizophrenia, acute: (2) Psychotic disorder: (3) Depression: Plan This is a 39-year-old white male involuntarily hospitalized with decline in functioning at home with worsening psychosis currently on no medications at this time. He appears abstinent from illicit drugs and alcohol at this time. 1.? ? Encouraged individual, group and milieu therapy. ?2. ? We will attempt to gather collateral information from previous providers ?3. ? TO-15 minute checks on the unit. ?4. ? Recommend sober living treatment at the highest level of care to which the patient is willing to commit. 5. Patient received both IM 234mg, 156mg on 09/06/24 and 09/13/24 respectively. Invega injection due 10/11/2024. Invega injection given next injection due 11/10/2024. Increase the Invega to 234 mg injection received and patient on oral invega 3mg daily. Next injection by 12/10/2024. Continue monthly IM invega 156mg daily. 6. Patient now placed on another [address]. We filed for 90-day hold on Wednesday and the goal is that hopefully based on what we are hearing he could be out of here possibly in 2 weeks as we have a facility evaluating him. 90-day-hold hearing on 11/08/2024 at 2 PM. 90-day hold granted 11/08/2024. 7. Guardianship now to be completed by mother. LEVEL 2 completed again on 11/17/24. D/C Seroquel, ordered Caplyta 21mg daily adjunctively for psychosis. PDMP PDMP Reviewed: Not Reviewed Involuntary Hold Information 96 Hour Hold: 96 Hour Involuntary Admission: Yes 96 Hour Hold Ending Date: 09/04/24 96 Hour Hold Ending Time: 16:30 Other Hold: Hold End Date: 02/07/25 Attestations NPU Medical Necessity Statement*: Inpatient hospitalization is medically necessary and the clinically appropriate intervention at this time. We will monitor/initiate medications and make changes as indicated. Likely length of stay may be greater than 14 days as guardianship/placement are managed. Coding Level of Care Code Acute Code for [facility] Fwd Diagnoses Schizophrenia, acute F23 Psychotic disorder F29 Depression F32.A
[2024-11-23 14:00] VITALS: BP 149/89; PULSE 87; RESP 16; TEMP 36.5; O2SAT 96
[2024-11-23] MEDS: ammonium lactate lotion 226 gm Btl 1 APPLIC TOPICAL (17:20)
[2024-11-23] MEDS: acetaminophen 325 mg Tablet 650 MG PO (18:05)
[2024-11-23 20:14] VITALS: BP 155/79; PULSE 92; RESP 20; TEMP 36.3; O2SAT 95
[2024-11-23] MEDS: quetiapine 100 mg Tablet PO (20:18)
[2024-11-24 06:00] VITALS: BP 112/65; PULSE 78; RESP 18; TEMP 36.5; O2SAT 97
[2024-11-24 08:03] VITALS: BP 112/65
[2024-11-24] MEDS: nicotine 4 mg lozenge 8 MG MUCOUS MEM ×6 (08:03→21:13)
[2024-11-24] MEDS: losartan 50 mg Tablet 25 MG PO (08:03)
[2024-11-24] MEDS: acetaminophen 325 mg Tablet 650 MG PO (11:02)
[2024-11-24 14:00] VITALS: BP 118/75; PULSE 100; RESP 16; TEMP 36.5; O2SAT 94
--- NOTE | 2024-11-24 19:25 | P.NPUPN_ITS ---
Subjective NPU 2 Subjective: Patient presented today reporting that things are going okay. We discussed the fact that it is our sincere hope that with the guardianship process underway that we will be able to discharge home next week which he likes that idea. We discussed the medication changes that Dr. Cuello and instituted but that the Caplyta is not available just yet but we will initiate that as soon as it is available. He denied any current side effects to his medications. Mental Status Exam 2 MSE Comments: This is an obese versus morbidly obese white male in hospital scrubs with adequate grooming and eye contact. No abnormal movements except for mild psychomotor agitation today. Patient with significant pacing as well but he seemed to have a less physical padding behaviors with his hands and fingers while walking aimlessly through the hallway. He was cooperative with exam with laissez faire attitude. His speech remained productive. Mood described as good. Affect was odd. Thought process was linear but very superficial. Thought contact: patient denies suicidal or homicidal ideation, There were prominent grandiose delusions appreciated, multiple in nature. Patient denied auditory or visual hallucinations. Attention and concentration appeared intact and memory appeared unreliable but none were formally tested. Patient is alert and oriented times person and place and time. Insight and judgment are poor. Impulse control: limited. Vitals/I&O/Wt Last Vital Signs Temp 97.7 F 11/24/24 14:00 Pulse 100 11/24/24 14:00 Resp 16 11/24/24 14:00 BP 118/75 11/24/24 14:00 Pulse Ox 94 11/24/24 14:00 O2 Del Method Room Air 11/24/24 14:00 Data NPU 11/02/24 19:37 11/02/24 19:37 A&P Assessment and plan (1) Schizophrenia, acute: (2) Psychotic disorder: (3) Depression: Plan This is a 39-year-old white male involuntarily hospitalized with decline in functioning at home with worsening psychosis currently on no medications at this time. He appears abstinent from illicit drugs and alcohol at this time. 1.? ? Encouraged individual, group and milieu therapy. ?2. ? We will attempt to gather collateral information from previous providers ?3. ? TO-15 minute checks on the unit. ?4. ? Recommend sober living treatment at the highest level of care to which the patient is willing to commit. 5. Patient received both IM 234mg, 156mg on 09/06/24 and 09/13/24 respectively. Invega injection due 10/11/2024. Invega injection given next injection due 11/10/2024. Increase the Invega to 234 mg injection received and patient on oral invega 3mg daily. Next injection by 12/10/2024. 6. Patient now placed on another [address]. We filed for 90-day hold on Wednesday and the goal is that hopefully based on what we are hearing he could be out of here possibly in 2 weeks as we have a facility evaluating him. 90-day-hold hearing on 11/08/2024 at 2 PM. 90-day hold granted 11/08/2024. 7. Guardianship now to be completed by mother. LEVEL 2 completed again on 11/17/24. D/C Seroquel, ordered Caplyta 21mg daily adjunctively for psychosis. PDMP PDMP Reviewed: Not Reviewed Involuntary Hold Information 2 96 Hour Hold: 96 Hour Involuntary Admission: Yes 96 Hour Hold Ending Date: 09/04/24 96 Hour Hold Ending Time: 16:30 Other Hold: Hold End Date: 02/07/25 Attestations NPU 2 Medical Necessity Statement*: Inpatient hospitalization is medically necessary and the clinically appropriate intervention at this time. We will monitor/initiate medications and make changes as indicated. Likely length of stay may be greater than 14 days as guardianship/placement are managed. Coding Level of Care Code Acute Code for [facility] Fwd Diagnoses Schizophrenia, acute F23 Psychotic disorder F29 Depression F32.A
[2024-11-24] MEDS: quetiapine 100 mg Tablet PO (20:01)
[2024-11-24 20:06] VITALS: BP 115/63; PULSE 86; RESP 18; TEMP 36.4; O2SAT 98
[2024-11-25 06:00] VITALS: BP 102/56; PULSE 78; RESP 16; TEMP 36.8; O2SAT 96
[2024-11-25] MEDS: nicotine 4 mg lozenge 8 MG MUCOUS MEM ×7 (07:52→20:03)
[2024-11-25 07:55] VITALS: BP 134/94
[2024-11-25] MEDS: losartan 50 mg Tablet 25 MG PO (07:55)
--- NOTE | 2024-11-25 09:45 | P.NPUPN_ITS ---
Subjective NPU 2 Subjective: Patient presented today reporting that he is doing fine. He continues to endorse that he is awaiting discharge hopefully next week and denied having any problems or concerns otherwise. He continues to have grandiose reports per staff and direct observation. He denies any side effects to the medication. Mental Status Exam 2 MSE Comments: This is an obese versus morbidly obese white male in hospital scrubs with adequate grooming and eye contact. No abnormal movements except for mild psychomotor agitation today. Patient with significant pacing as well but he seemed to have a less physical padding behaviors with his hands and fingers while walking aimlessly through the hallway. He was cooperative with exam with laissez faire attitude. His speech remained productive. Mood described as good. Affect was odd. Thought process was linear but very superficial. Thought contact: patient denies suicidal or homicidal ideation, There were prominent grandiose delusions appreciated, multiple in nature. Patient denied auditory or visual hallucinations. Attention and concentration appeared intact and memory appeared unreliable but none were formally tested. Patient is alert and oriented times person and place and time. Insight and judgment are poor. Impulse control: limited. Vitals/I&O/Wt Last Vital Signs Temp 98.2 F 11/25/24 06:00 Pulse 78 11/25/24 06:00 Resp 16 11/25/24 06:00 BP 134/94 11/25/24 07:55 Pulse Ox 96 11/25/24 06:00 O2 Del Method Room Air 11/25/24 06:00 Data NPU 11/02/24 19:37 11/02/24 19:37 A&P Assessment and plan (1) Schizophrenia, acute: (2) Psychotic disorder: (3) Depression: Plan This is a 39-year-old white male involuntarily hospitalized with decline in functioning at home with worsening psychosis currently on no medications at this time. He appears abstinent from illicit drugs and alcohol at this time. 1.? ? Encouraged individual, group and milieu therapy. ?2. ? We will attempt to gather collateral information from previous providers ?3. ? TO-15 minute checks on the unit. ?4. ? Recommend sober living treatment at the highest level of care to which the patient is willing to commit. 5. Patient received both IM 234mg, 156mg on 09/06/24 and 09/13/24 respectively. Invega injection due 10/11/2024. Invega injection given next injection due 11/10/2024. Increase the Invega to 234 mg injection received and patient on oral invega 3mg daily. Next injection by 12/10/2024. 6. Patient now placed on another [address]. We filed for 90-day hold on Wednesday and the goal is that hopefully based on what we are hearing he could be out of here possibly in 2 weeks as we have a facility evaluating him. 90-day-hold hearing on 11/08/2024 at 2 PM. 90-day hold granted 11/08/2024. 7. Guardianship now to be completed by mother. LEVEL 2 completed again on 11/17/24. D/C Seroquel, ordered Caplyta 21mg daily adjunctively for psychosis. PDMP PDMP Reviewed: Not Reviewed Involuntary Hold Information 2 96 Hour Hold: 96 Hour Involuntary Admission: Yes 96 Hour Hold Ending Date: 09/04/24 96 Hour Hold Ending Time: 16:30 Other Hold: Hold End Date: 02/07/25 Attestations NPU 2 Medical Necessity Statement*: Inpatient hospitalization is medically necessary and the clinically appropriate intervention at this time. We will monitor/initiate medications and make changes as indicated. Likely length of stay may be greater than 14 days as guardianship/placement are managed. Coding Level of Care Code Acute Code for [facility] Fwd Diagnoses Schizophrenia, acute F23 Psychotic disorder F29 Depression F32.A
[2024-11-25 14:00] VITALS: BP 96/53; PULSE 74; RESP 18; TEMP 36.6; O2SAT 96
[2024-11-25] MEDS: acetaminophen 325 mg Tablet 650 MG PO (18:24)
[2024-11-25] MEDS: benzocaine 20% 7 gm 1 APPLIC MUCOUS MEM (19:08)
[2024-11-25] MEDS: quetiapine 100 mg Tablet PO (20:03)
[2024-11-25 21:02] VITALS: BP 120/77; PULSE 99; RESP 18; TEMP 36.3; O2SAT 97
[2024-11-26] MEDS: nicotine 4 mg lozenge 8 MG MUCOUS MEM ×8 (03:28→19:58)
[2024-11-26 05:58] VITALS: BMI 41.1
[2024-11-26 06:00] VITALS: BP 112/67; PULSE 85; RESP 18; TEMP 36.8; O2SAT 97
[2024-11-26] MEDS: losartan 50 mg Tablet 25 MG PO (07:40)
[2024-11-26] MEDS: acetaminophen 325 mg Tablet 650 MG PO (07:44)
--- NOTE | 2024-11-26 11:26 | W.PM.NPUPNS ---
Subjective NPU Subjective: Patient presented today reporting that he is doing fine. He continued to be fairly communicative and interactive with this speech writer in a positive way. Continues to be patient and open to the plan for Caplyta. Otherwise staff reported to be unchanged which was noteworthy on direct observation he denies any specific side effects to his medication. Mental Status Exam MSE Comments: This is an obese versus morbidly obese white male in hospital scrubs with adequate grooming and eye contact. No abnormal movements except for mild psychomotor agitation today. Patient with significant pacing as well but he seemed to have a less physical padding behaviors with his hands and fingers while walking aimlessly through the hallway. He was cooperative with exam with laissez faire attitude. His speech remained productive. Mood described as good. Affect was odd. Thought process was linear but very superficial. Thought contact: patient denies suicidal or homicidal ideation, There were prominent grandiose delusions appreciated, multiple in nature. Patient denied auditory or visual hallucinations. Attention and concentration appeared intact and memory appeared unreliable but none were formally tested. Patient is alert and oriented times person and place and time. Insight and judgment are poor. Impulse control: limited. Vitals/I&O/Wt Last Vital Signs Temp 98.2 F 11/26/24 06:00 Pulse 85 11/26/24 06:00 Resp 18 11/26/24 06:00 BP 112/67 11/26/24 06:00 Pulse Ox 97 11/26/24 06:00 O2 Del Method Room Air 11/26/24 06:00 11/25/24 11/26/24 11/26/24 22:59 06:59 14:59 Intake Total 480 / 1440 Balance 480 / 1440 Weight last 48 hrs Weight 137.495 kg Data NPU 11/02/24 19:37 11/02/24 19:37 A&P Assessment and plan (1) Schizophrenia, acute: (2) Psychotic disorder: (3) Depression: Plan This is a 39-year-old white male involuntarily hospitalized with decline in functioning at home with worsening psychosis currently on no medications at this time. He appears abstinent from illicit drugs and alcohol at this time. 1.? ? Encouraged individual, group and milieu therapy. ?2. ? We will attempt to gather collateral information from previous providers ?3. ? TO-15 minute checks on the unit. ?4. ? Recommend sober living treatment at the highest level of care to which the patient is willing to commit. 5. Patient received both IM 234mg, 156mg on 09/06/24 and 09/13/24 respectively. Invega injection due 10/11/2024. Invega injection given next injection due 11/10/2024. Increase the Invega to 234 mg injection received and patient on oral invega 3mg daily. Next injection by 12/10/2024. 6. Patient now placed on another [address]. We filed for 90-day hold on Wednesday and the goal is that hopefully based on what we are hearing he could be out of here possibly in 2 weeks as we have a facility evaluating him. 90-day-hold hearing on 11/08/2024 at 2 PM. 90-day hold granted 11/08/2024. 7. Guardianship now to be completed by mother. LEVEL 2 completed again on 11/17/24. D/C Serluis fernando, ordered Caplyta 21mg daily adjunctively for psychosis. Still awaiting Caplyta since it is not on formulary. PDMP PDMP Reviewed: Not Reviewed Involuntary Hold Information 96 Hour Hold: 96 Hour Involuntary Admission: Yes 96 Hour Hold Ending Date: 09/04/24 96 Hour Hold Ending Time: 16:30 Other Hold: Hold End Date: 02/07/25 Attestations NPU Medical Necessity Statement*: Inpatient hospitalization is medically necessary and the clinically appropriate intervention at this time. We will monitor/initiate medications and make changes as indicated. Likely length of stay may be greater than 14 days as guardianship/placement are managed. Coding Level of Care Code Acute Code for [facility] Fwd Diagnoses Schizophrenia, acute F23 Psychotic disorder F29 Depression F32.A
[2024-11-26 14:00] VITALS: BP 111/72; PULSE 98; RESP 20; TEMP 36.7; O2SAT 94
[2024-11-26] MEDS: quetiapine 100 mg Tablet PO (19:58)
[2024-11-26] MEDS: benzocaine 20% 7 gm 1 APPLIC MUCOUS MEM (20:07)
[2024-11-26 21:15] VITALS: BP 131/81; PULSE 96; RESP 18; TEMP 36.2; O2SAT 96
[2024-11-27 06:00] VITALS: BP 140/80; PULSE 67; RESP 18; O2SAT 96
[2024-11-27] MEDS: nicotine 4 mg lozenge 8 MG MUCOUS MEM ×8 (06:38→21:36)
[2024-11-27 08:37] VITALS: BP 140/80
[2024-11-27] MEDS: losartan 50 mg Tablet 25 MG PO (08:37)
[2024-11-27] MEDS: ammonium lactate lotion 226 gm Btl 1 APPLIC TOPICAL ×2 (08:39→17:37)
--- NOTE | 2024-11-27 12:40 | P.NPUPN_ITS ---
Subjective NPU 2 Subjective: Patient presented today reporting that things are going as well as can be expected. He reports that he is looking forward to the possibility of discharging this week as the process with his guardianship is supposed to move forward tomorrow. We discussed the possibility of him being able to discharge very soon after that is established since we have redone his level 2 paperwork and he will be able to consider some different possibilities for treatment moving forward. He will have options for residential that were probably not available here secondary to him not having the guardian. Otherwise he denies any new problems and reports that there is no issues with his medication. Mental Status Exam 2 MSE Comments: This is an obese versus morbidly obese white male in hospital scrubs with adequate grooming and eye contact. No abnormal movements except for mild psychomotor agitation today. Patient with significant pacing as well but he seemed to have a less physical padding behaviors with his hands and fingers while walking aimlessly through the hallway. He was cooperative with exam with laissez faire attitude. His speech remained productive. Mood described as good. Affect was odd. Thought process was linear but very superficial. Thought contact: patient denies suicidal or homicidal ideation, There were prominent grandiose delusions appreciated, multiple in nature. Patient denied auditory or visual hallucinations. Attention and concentration appeared intact and memory appeared unreliable but none were formally tested. Patient is alert and oriented times person and place and time. Insight and judgment are poor. Impulse control: limited. Vitals/I&O/Wt Last Vital Signs Temp 97.2 F L 11/26/24 21:15 Pulse 67 11/27/24 06:00 Resp 18 11/27/24 06:00 BP 140/80 11/27/24 08:37 Pulse Ox 96 11/27/24 06:00 O2 Del Method Room Air 11/27/24 06:00 Weight last 48 hrs Weight 137.495 kg Data NPU 11/02/24 19:37 11/02/24 19:37 A&P Assessment and plan (1) Schizophrenia, acute: (2) Psychotic disorder: (3) Depression: Plan This is a 39-year-old white male involuntarily hospitalized with decline in functioning at home with worsening psychosis currently on no medications at this time. He appears abstinent from illicit drugs and alcohol at this time. 1.? ? Encouraged individual, group and milieu therapy. ?2. ? We will attempt to gather collateral information from previous providers ?3. ? TO-15 minute checks on the unit. ?4. ? Recommend sober living treatment at the highest level of care to which the patient is willing to commit. 5. Patient received both IM 234mg, 156mg on 09/06/24 and 09/13/24 respectively. Invega injection due 10/11/2024. Invega injection given next injection due 11/10/2024. Increase the Invega to 234 mg injection received and patient on oral invega 3mg daily. Next injection by 12/10/2024. 6. Patient now placed on another [address]. We filed for 90-day hold on Wednesday and the goal is that hopefully based on what we are hearing he could be out of here possibly in 2 weeks as we have a facility evaluating him. 90-day-hold hearing on 11/08/2024 at 2 PM. 90-day hold granted 11/08/2024. 7. Guardianship now to be completed by mother. LEVEL 2 completed again on 11/17/24. D/C Erlin, ordered Caplyta 21mg daily adjunctively for psychosis. Still awaiting Caplyta since it is not on formulary. 8. We are awaiting the meeting with the social media campaign manager tomorrow to make sure that the process of guardianship has been initiated with that social media campaign manager client relationship with his projected guardian his mother. After that with the level 2 completed they will have flexibility to get him into some place if there is any problems at home. Tentative plan for discharge possibly in the next 48 hours. PDMP PDMP Reviewed: Not Reviewed Involuntary Hold Information 2 96 Hour Hold: 96 Hour Involuntary Admission: Yes 96 Hour Hold Ending Date: 09/04/24 96 Hour Hold Ending Time: 16:30 Other Hold: Hold End Date: 02/07/25 Attestations NPU 2 Medical Necessity Statement*: Inpatient hospitalization is medically necessary and the clinically appropriate intervention at this time. We will monitor/initiate medications and make changes as indicated. Likely length of stay may be greater than 14 days as guardianship/placement are managed. Coding Level of Care Code Acute Code for [facility] Fwd Diagnoses Schizophrenia, acute F23 Psychotic disorder F29 Depression F32.A
[2024-11-27 14:00] VITALS: BP 138/74; PULSE 69; RESP 16; TEMP 37; O2SAT 98
[2024-11-27] MEDS: NON-FORMULARY MEDICATION PO (16:04)
[2024-11-27] MEDS: quetiapine 100 mg Tablet PO (19:41)
[2024-11-27 21:57] VITALS: BP 129/84; PULSE 98; RESP 18; TEMP 36.4; O2SAT 95
[2024-11-28 06:00] VITALS: BP 96/62; PULSE 86; RESP 17; O2SAT 95
[2024-11-28] MEDS: nicotine 4 mg lozenge 8 MG MUCOUS MEM ×7 (07:48→19:35)
[2024-11-28] MEDS: NON-FORMULARY MEDICATION PO (08:28)
[2024-11-28] MEDS: ammonium lactate lotion 226 gm Btl 1 APPLIC TOPICAL ×2 (08:28→18:53)
[2024-11-28 14:00] VITALS: BP 133/70; PULSE 97; RESP 18; TEMP 36.4; O2SAT 95
--- NOTE | 2024-11-28 17:12 | W.PM.NPUPNS ---
Subjective NPU Subjective: Patient presented today reporting that he is doing relatively well. He was pleasant during the interview and denied any new or pressing issues. We discussed the fact that we did reach out to the stock control supervisor to identify whether the process for guardianship move forward and was filed and the looks like there is a possibility that the date of the hearing may be as late as 12/28/2024 due to vacation of the stock control supervisor and possible time conflict of the lofter. As this court has fixed dates for these hearings. But if this is confirmed we discussed as a possibility of discharge in the next 48 hours. He denied any side effects to medications. Mental Status Exam MSE Comments: This is an obese versus morbidly obese white male in hospital scrubs with adequate grooming and eye contact. No abnormal movements except for mild psychomotor agitation today. Patient with significant pacing as well but he seemed to have a less physical padding behaviors with his hands and fingers while walking aimlessly through the hallway. He was cooperative with exam with laissez faire attitude. His speech remained productive. Mood described as good. Affect was odd. Thought process was linear but very superficial. Thought contact: patient denies suicidal or homicidal ideation, There were prominent grandiose delusions appreciated, multiple in nature. Patient denied auditory or visual hallucinations. Attention and concentration appeared intact and memory appeared unreliable but none were formally tested. Patient is alert and oriented times person and place and time. Insight and judgment are poor. Impulse control: limited. Vitals/I&O/Wt Last Vital Signs Temp 97.6 F 11/28/24 14:00 Pulse 97 11/28/24 14:00 Resp 18 11/28/24 14:00 BP 133/70 11/28/24 14:00 Pulse Ox 95 11/28/24 14:00 O2 Del Method Room Air 11/27/24 14:00 Data NPU 11/02/24 19:37 11/02/24 19:37 A&P Assessment and plan (1) Schizophrenia, acute: (2) Psychotic disorder: (3) Depression: Plan This is a 39-year-old white male involuntarily hospitalized with decline in functioning at home with worsening psychosis currently on no medications at this time. He appears abstinent from illicit drugs and alcohol at this time. 1.? ? Encouraged individual, group and milieu therapy. ?2. ? We will attempt to gather collateral information from previous providers ?3. ? TO-15 minute checks on the unit. ?4. ? Recommend sober living treatment at the highest level of care to which the patient is willing to commit. 5. Patient received both IM 234mg, 156mg on 09/06/24 and 09/13/24 respectively. Invega injection due 10/11/2024. Invega injection given next injection due 11/10/2024. Increase the Invega to 234 mg injection received and patient on oral invega 3mg daily. Next injection by 12/10/2024. 6. Patient now placed on another [address]. We filed for 90-day hold on Wednesday and the goal is that hopefully based on what we are hearing he could be out of here possibly in 2 weeks as we have a facility evaluating him. 90-day-hold hearing on 11/08/2024 at 2 PM. 90-day hold granted 11/08/2024. 7. Guardianship now to be completed by mother. LEVEL 2 completed again on 11/17/24. D/C Seroquel, ordered Caplyta 21mg daily. Which was initiated yesterday 11/27/2024. Adjunctively for psychosis. 8. We are awaiting the meeting with the stock control supervisor tomorrow to make sure that the process of guardianship has been initiated with that stock control supervisor client relationship with his projected guardian his mother. After that with the level 2 completed they will have flexibility to get him into some place if there is any problems at home. Tentative plan for discharge possibly in the next 24 hours. PDMP PDMP Reviewed: Not Reviewed Involuntary Hold Information 96 Hour Hold: 96 Hour Involuntary Admission: Yes 96 Hour Hold Ending Date: 09/04/24 96 Hour Hold Ending Time: 16:30 Other Hold: Hold End Date: 02/07/25 Attestations NPU Medical Necessity Statement*: Inpatient hospitalization is medically necessary and the clinically appropriate intervention at this time. We will monitor/initiate medications and make changes as indicated. Likely length of stay may be greater than 1-3 days as guardianship/placement are managed. Coding Level of Care Code Acute Code for g Fwd Diagnoses Schizophrenia, acute F23 Psychotic disorder F29 Depression F32.A
[2024-11-28] MEDS: quetiapine 100 mg Tablet PO (19:35)
[2024-11-28] MEDS: acetaminophen 325 mg Tablet 650 MG PO (19:40)
[2024-11-28 20:20] VITALS: BP 142/78; PULSE 95; RESP 17; TEMP 36.4; O2SAT 93
[2024-11-29] MEDS: acetaminophen 325 mg Tablet 650 MG PO ×2 (02:04→13:31)
[2024-11-29 06:00] VITALS: BP 123/74; PULSE 85; RESP 17; TEMP 36.6; O2SAT 98
[2024-11-29] MEDS: nicotine 4 mg lozenge 8 MG MUCOUS MEM ×5 (08:08→15:56)
[2024-11-29 08:32] VITALS: BP 123/74
[2024-11-29] MEDS: losartan 50 mg Tablet 25 MG PO (08:32)
[2024-11-29] MEDS: NON-FORMULARY MEDICATION PO (08:34)
[2024-11-29 14:00] VITALS: BP 123/75; PULSE 97; RESP 18; TEMP 36.5; O2SAT 96
--- NOTE | 2024-11-29 14:02 | P.NPUDS_ITS ---
Diagnoses at Discharge Discharge Diagnosis (1) Schizophrenia, acute: Status: Acute (2) Psychotic disorder: Status: Resolved (3) Depression: Status: Acute Reason for Visit Reason for Visit: 96 Involuntary Hold Information 96 Hour Hold: 96 Hour Involuntary Admission: Yes 96 Hour Hold Ending Date: 09/04/24 96 Hour Hold Ending Time: 16:30 Other Hold: Hold End Date: 02/07/25 Mental Status Exam MSE Comments: This is an obese versus morbidly obese white male in hospital scrubs with adequate grooming and eye contact. No abnormal movements except for mild psychomotor agitation today. Patient with significant pacing as well but he seemed to have a less physical padding behaviors with his hands and fingers while walking aimlessly through the hallway. He was cooperative with exam with laissez faire attitude. His speech remained productive. Mood described as good. Affect was odd. Thought process was linear but very superficial. Thought contact: patient denies suicidal or homicidal ideation, There were prominent grandiose delusions appreciated, multiple in nature. Patient denied auditory or visual hallucinations. Attention and concentration appeared intact and memory appeared unreliable but none were formally tested. Patient is alert and oriented times person and place and time. Insight and judgment are poor. Impulse control: limited. Discharge Data Studies Completed and Pending: Laboratory Results WBC 9.69 10^3/uL (3.2 9-11.43) 11/02/24 19:37 RBC 4.66 10^6/uL (3.8 5-5.65) 11/02/24 19:37 Hgb 13.20 g/dL (11.27 -16.99) 11/02/24 19:37 Hct 40.4 % (37-53) 11/02/24 19:37 MCV 86.7 fl (82-101) 11/02/24 19:37 MCH 28.3 pg (27-33) 11/02/24 19:37 MCHC 32.7 g/dL (30-55) 11/02/24 19:37 RDW 12.4 % (12.1-15.1 ) 11/02/24 19:37 Plt Count 222 10^3/cmm (157 -399) 11/02/24 19:37 MPV 9.5 fL (7.4-10.4) 11/02/24 19:37 Neut % (Auto) 47.6 % 11/02/24 19:37 Lymph % (Auto) 40.1 % 11/02/24 19:37 Boundary % (Auto) 9.1 % 11/02/24 19:37 Eos % (Auto) 2.4 % 11/02/24 19:37 Baso % (Auto) 0.6 % 11/02/24 19:37 Neut # (Auto) 4.61 10^3/uL (1.8 -7.7) 11/02/24 19:37 Lymph # (Auto) 3.9 10^3/uL (0.8- 4.8) 11/02/24 19:37 Boundary # (Auto) 0.9 10^3/uL (0.2- 0.9) 11/02/24 19:37 Eos # (Auto) 0.2 10^3/uL (0.0- 0.8) 11/02/24 19:37 Baso # (Auto) 0.1 10^3/uL (0.0- 0.1) 11/02/24 19:37 Nucleated RBC % (a uto) 0 % 11/02/24 19:37 Nucleated RBCs # 0.0 /100WBC 11/02/24 19:37 Sodium 140 mmol/L (136-1 45) 11/02/24 19:37 Potassium 3.8 mmol/L (3.5-5 .1) 11/02/24 19:37 Chloride 103 mmol/L (98-10 7) 11/02/24 19:37 Carbon Dioxide 27 mmol/L (22-29) 11/02/24 19:37 Anion Gap 13.8 (5-19) 11/02/24 19:37 BUN 16 mg/dL (6-20) 11/02/24 19:37 Creatinine 0.8 mg/dL (0.7-1. 2) 11/02/24 19:37 GFR Calculation 108.2 mL/min (90- 130) 11/02/24 19:37 Glucose 113 mg/dL (65-115 ) 11/02/24 19:37 Estimat Average Gl ucose 108 10/08/24 09:27 Hemoglobin A1c 5.4 % (4.0-6.0) 10/08/24 09:27 Calculated Osmolal ity 292 mOsm/kg (285- 295) 11/02/24 19:37 Calcium 9.3 mg/dL (8.5-10 .5) 11/02/24 19:37 Total Bilirubin 0.2 mg/dL (0.15-1 .2) 11/02/24 19:37 AST 13 U/L (0-40) 11/02/24 19:37 ALT 23 U/L (0-41) 11/02/24 19:37 Alkaline Phosphata se 67 U/L (40-130) 11/02/24 19:37 C-Reactive Protein 24.3 mg/L (0.0-4. 9) H 10/08/24 09:27 Total Protein 6.8 g/dL (6.6-8.7 ) 11/02/24 19:37 Albumin 3.9 g/dL (3.5-5.2 ) 11/02/24 19:37 Globulin 2.9 g/dL (1.3-4.6 ) 11/02/24 19:37 Procalcitonin 0.22 ng/mL (0-0.5 ) 10/08/24 09:27 TSH 1.42 uIU/mL (0.27 -4.20) 08/25/24 16:28 Urine Color Yellow (Yellow) 08/25/24 20:56 Urine Appearance Clear (CLEAR) 08/25/24 20:56 Urine pH 7.0 (5-7) 08/25/24 20:56 Ur Specific Gravit y 1.024 (1.005-1.0 30) 08/25/24 20:56 Urine Protein Negative (Negati ve) 08/25/24 20:56 Urine Glucose (UA) Negative (Normal ) 08/25/24 20:56 Urine Ketones Negative (Negati ve) 08/25/24 20:56 Urine Blood Negative (Negati ve) 08/25/24 20:56 Urine Nitrate Negative (Negati ve) 08/25/24 20:56 Urine Bilirubin Negative (Negati ve) 08/25/24 20:56 Urine Urobilinogen 1.0 mg/dL (Negati ve) 08/25/24 20:56 Ur Leukocyte Marilee ase Negative (Negati ve) 08/25/24 20:56 Urine RBC 0-2 /hpf (0-2) 08/25/24 20:56 Urine WBC 0-5 /hpf (0-5) 08/25/24 20:56 Ur Squamous Epith Cells 0-5 /hpf (0-5) 08/25/24 20:56 Amorphous Sediment Not Reportable 08/25/24 20:56 Urine Bacteria None seen /hpf (N ONE) 08/25/24 20:56 Hyaline Casts 0-4 /lpf H 08/25/24 20:56 Salicylates < 0.3 mg/dL (3-10 ) L 08/25/24 16:28 Urine Opiates Scre en Negative ng/mL (N egative) 08/25/24 20:56 Acetaminophen < 5.0 ug/mL (10-3 0) L 08/25/24 16:28 Ur Barbiturates Sc reen Negative ng/mL (N egative) 08/25/24 20:56 Ur Phencyclidine S crn Negative ng/mL (N egative) 08/25/24 20:56 Ur Amphetamines Sc reen Negative ng/mL (N egative) 08/25/24 20:56 U Benzodiazepines Scrn Positive ng/mL (N egative) H 08/25/24 20:56 Urine Cocaine Scre en Negative ng/mL (N egative) 08/25/24 20:56 U Marijuana (THC) Screen Negative ng/mL (N egative) 08/25/24 20:56 Ethyl Alcohol < 10 mg/dL (0-10) 08/25/24 16:28 Hepatitis A IgM Ab Non-reactive (No nreactive) 11/03/24 08:28 Hep Bs Antigen Non-reactive (No nreactive) 11/03/24 08:28 Hep Bs Antibody 23.5 (11.5-1000) 11/03/24 08:28 Hep B Core Total A b Non-reactive (No nreactive) 11/03/24 08:28 Hepatitis C Antibo dy Non-reactive (No nreactive) 11/03/24 08:28 Vitals: Last Vital Signs Temp 97.8 F 11/29/24 06:00 Pulse 85 11/29/24 06:00 Resp 17 11/29/24 06:00 BP 123/74 11/29/24 08:32 Pulse Ox 98 11/29/24 06:00 O2 Del Method Room Air 11/29/24 06:00 Discharge Plan Discharge Patient Disposition: Home Condition: Stable Prescriptions: New Invega Trinza 819 mg/2.63 mL syringe 819 mg IM ONCE Qty: 2.63 1RF losartan 50 mg Tablet 25 mg PO DAILY 30 Days Qty: 15 1RF quetiapine 100 mg Tablet 100 mg PO BEDTIME 30 Days Qty: 30 1RF Invega Sustenna 234 mg/1.5 mL syringe 234 mg IM Q30D 30 Days Qty: 1.5 1RF Rx Instructions: Next injection due 12/10/2024 Caplyta 21 mg capsule 21 mg PO DAILY 30 Days Qty: 30 1RF Discharge Orders: Discharge Order (Routine); Ordered 11/29/24 Ordered By: Jovanni Ann Referrals: [facility] [Outside] Srinivas Tavarez MD [Referring] - 12/04/24 1:30 pm (Follow up ) Discharge Diet: Regular Discharge Activity: Resume usual activity Patient Instructions: Losartan (By mouth), Quetiapine (By mouth), Paliperidone (By injection) (Invega Sustenna, Invega Trinza, Invega..., Schizophrenia (DC), Psychotic Disorder (DC), Suicide Prevention (DC), Opioid Safety Discharge Attestations NPU Time Spent in Discharge Care*: greater than 30 min Specific Discharge Activities: Specific discharge activities: educating patient, discussing with supportive employment case manager/social workers/dc planners, documenting/other paperwork and evaluating patient/reviewing data Coding Level of Care Code Acute Code for g Fwd Diagnoses Schizophrenia, acute F23 Psychotic disorder F29 Depression F32.A
[2024-11-29 14:12] VITALS: BP 123/74; PULSE 85; RESP 17; TEMP 36.6; O2SAT 98
== END 2024-11-29 17:35 | disposition home or self-care (01) | DRG 885 ==
LOC: ER 17:19 → NP 18:16
PROVIDERS: Internal Medicine; Physician Assistant; Psychiatry & Neurology Psychiatry; Student in an Organized Health Care Education/Training Program; Admitting Provider Psychiatry & Neurology Psychiatry; Emergency Provider Emergency Medicine; PCP Internal Medicine; Visit Provider Psychiatry & Neurology Psychiatry
DX: F25.9 Schizoaffective disorder, unspecified (principal); L03.115 Cellulitis of right lower limb; Z68.41 Body mass index [BMI] 40.0-44.9, adult; S80.861A Insect bite (nonvenomous), right lower leg, initial encounter; S91.301A Unspecified open wound, right foot, initial encounter; X58.XXXA Exposure to other specified factors, initial encounter; F32.A Depression, unspecified; F15.11 Other stimulant abuse, in remission; E78.5 Hyperlipidemia, unspecified; F42.9 Obsessive-compulsive disorder, unspecified; N52.9 Male erectile dysfunction, unspecified; R79.89 Other specified abnormal findings of blood chemistry; F17.200 Nicotine dependence, unspecified, uncomplicated; E66.01 Morbid (severe) obesity due to excess calories
CPT/HCPCS: 36415; 80048; 80053; 80306; 80307; 81001; 83036; 84145; 84443; 85025; 86140; 86705; 86706; 86709; 86803; 87340; 93005; 96372; 97150; 97165; 99285; J2060; J3486